=== PATIENT | male | born 1945 | race Caucasian/White ===

== ENCOUNTER 2017-01-04 15:45 | Inpatient (IN) | payer MEDICARE ==
[2017-01-04] VITALS (11 sets, daily range): BP systolic 99–111; BP diastolic 57–60; PULSE 68–126; RESP 22–25; TEMP 97.8–98.1; O2SAT 92–94
[~2017-01-04] VITALS: Ht 175.3 cm; Wt 114.5 kg
[2017-01-04] MEDS ORDERED: CARV25TA PO (17:10)
[2017-01-04] MEDS ORDERED: ASPI1TAB69 PO (17:10)
[2017-01-04] MEDS ORDERED: HYDR25TA35 PO (17:10)
[2017-01-04] MEDS ORDERED: HYDR25TA5 PO (17:10)
[2017-01-04] MEDS ORDERED: DILTIAZEM HCL 25 MG/5 ML VIAL IV ONE (17:15)
[2017-01-04] MEDS: hydrALAZINE HCL 25 MG TAB PO SCH (20:47)
[2017-01-04] MEDS: DILTIAZEM 125 MG/NS 100 ML IV SCH ×2 (22:32)
[2017-01-05] VITALS (22 sets, daily range): BP systolic 109–124; BP diastolic 65–83; PULSE 80–148; RESP 14–25; TEMP 97.4–97.9; O2SAT 90–100
[2017-01-05] MEDS: DILTIAZEM 125 MG/NS 100 ML IV SCH ×6 (06:30→21:22)
[2017-01-05] MEDS: HYDROCHLOROTHIAZIDE 25 MG TAB PO SCH (09:00)
[2017-01-05] MEDS: hydrALAZINE HCL 25 MG TAB PO SCH ×2 (09:00→21:00)
[2017-01-05] MEDS: ASPIRIN 81 MG CHEW TAB PO SCH (09:00)
[2017-01-05] MEDS ORDERED: CARVEDILOL 12.5 MG TAB PO SCH (09:00)
[2017-01-05] MEDS ORDERED: SODIUM CHLORID 0.9% 500 ML INJ 500 ML IV SCH ×2 (09:15→10:00)
[2017-01-05 09:56] LABS: HEMATOCRIT 40.6 % (39.0-51.0); HEMO FLAGS DIFF FINAL; LYMPH % 3.3 % (9.0-44.0); LYMPHOCYTE # 0.5 TH/MM3 (1.0-4.8); MEAN CELL VOLUME 90.7 FL (80.0-100.0); MONO % 5.4 % (0.0-8.0); NEUT % 91.3 % (16.0-70.0); PLATELET COUNT 237 TH/MM3 (150-450); RED BLOOD COUNT 4.48 MIL/MM3 (4.50-5.90); RED CELL DISTRIBUTION WIDTH 15.3 % (11.6-17.2); WHITE BLOOD COUNT 15.3 TH/MM3 (4.0-11.0)
[2017-01-05 10:10] LABS: APTT (PATIENT) 25.9 SEC (24.3-30.1); INTERNATIONAL NORMALIZED RATIO 1.2 RATIO; PROTHROMBIN TIME - PATIENT 12.8 SEC (9.8-11.6)
[2017-01-05 10:16] LABS: BLOOD UREA NITROGEN 103 MG/DL (7-18); CHLORIDE 92 MEQ/L (98-107); GLOMERULAR FILTRATION RATE 18 ML/MIN (>89); POTASSIUM 3.1 MEQ/L (3.5-5.1); SODIUM (NA) 143 MEQ/L (136-145)
[2017-01-05 10:17] LABS: ANION GAP 6 MEQ/L (5-15); BICARBONATE GREATER THAN 45.0 MEQ/L (21.0-32.0)
--- NOTE | 2017-01-05 10:19 | MB ---
cc: AMENA NOBLE MD, HANSCY M.D. DATE OF CONSULTATION: 01/04/2017 REASON FOR CONSULTATION Atrial fibrillation, unable to control with medication, congestive heart failure. HISTORY OF PRESENT ILLNESS Mr. Palmer is a 71-year-old gentleman with obesity and high blood pressure who was admitted to [facility] in [place] due to shortness of breath and atrial fibrillation with fast ventricular response. During the hospitalization left heart catheterization was performed showing no significant occlusion, ejection fraction around 15%. Subsequently, the gentleman was cardioverted on at least two occasion, still back in atrial fibrillation with fast ventricular response. Heart rate cannot be controlled with medication. After multiple conversations with Dr. Noble the patient was transferred for evaluation of ablation. The chart was reviewed. The patient was evaluated. ALLERGIES None reported. SOCIAL HISTORY The patient currently denies smoking and drinking. FAMILY HISTORY Noncontributory to his current medical condition. PHYSICAL EXAMINATION VITAL SIGNS: Blood pressure 99/57, pulse around 126-140, respiratory rate 18. LUNGS: Ventilated. CARDIOVASCULAR: S1, S2 tachycardic, irregular. ABDOMEN: Obese. No mass. EXTREMITIES: No edema. ELECTROCARDIOGRAM Electrocardiogram showed atrial fibrillation. TELEMETRY Telemetry showed atrial fibrillation with fast ventricular response. ASSESSMENT AND RECOMMENDATION Mr. Palmer has atrial fibrillation, heart rate unable to control. The patient is very symptomatic. Electrophysiology study and ablation was discussed with him. The risks, the nature and the benefit of the procedure were clearly stated to him. The risks include pneumothorax, cardiac perforation, stroke and even . He understood and agreed to proceed. Also, the gentleman understands that he is very high risk. At this point I am going to control the atrial fibrillation. On discharge home he will need a defibrillatory vest for sudden prevention until echo is repeated in the next 45-60 days. Procedure will be performed tomorrow morning. Narcisa Jimenez MD HS/BT /8:56 AM /10:09 AM
[2017-01-05] MEDS ORDERED: HEPARIN-D5W INJ 250 ML ONE (12:33)
[2017-01-05] MEDS ORDERED: HEPARIN SODIUM - IV 10,000 UNITS/10 ML VIAL ONE (12:34)
[2017-01-05] MEDS ORDERED: KETAMINE HCL 500 MG/10 ML VIAL ONE (12:34)
[2017-01-05] MEDS ORDERED: ISOPROTERENOL HCL 1 MG/5 ML AMP ONE (12:34)
[2017-01-05] MEDS ORDERED: fentaNYL CITRATE 250 MCG/5 ML AMP ONE (12:34)
[2017-01-05] MEDS ORDERED: MIDAZOLAM HCL 5 MG/5 ML VIAL ONE (13:11)
[2017-01-05] MEDS ORDERED: LEVOFLOXACIN 500 MG PREMIX INJ 100 ML IV ONE (13:12)
[2017-01-05] MEDS ORDERED: AMIODARONE INJ 300 MG in DEXTROSE 5% IN WATER 100ML INJ 97 ML IV ONE ×2 (13:45)
[2017-01-05] MEDS ORDERED: AMIODARONE INJ 900 MG in D5W 500 ML (EXCEL BAG) 482 ML IV SCH (13:45)
--- NOTE | 2017-01-05 13:47 | HHI.PR ---
Subjective Remarks Tired, concern Objective Vital Signs Date Time Temp Pulse Resp B/P Pulse Ox O2 Delivery O2 Flow Rate FiO2 01/05/17 12:01 112 01/05/17 11:15 91 Simple Mask 9.00 01/05/17 11:15 97.6 80 22 111/81 95 01/05/17 11:00 148 01/05/17 10:00 112 01/05/17 09:01 132 01/05/17 08:30 95 Simple Mask 9.00 01/05/17 08:30 97.9 95 20 109/75 95 01/05/17 08:00 124 01/05/17 08:00 92 Simple Mask 8.00 01/05/17 07:01 126 01/05/17 06:00 116 01/05/17 05:00 111 01/05/17 04:00 97.5 90 25 117/83 90 01/05/17 04:00 90 Simple Mask 9.00 01/05/17 04:00 112 01/05/17 03:00 108 01/05/17 02:00 106 01/05/17 01:00 120 01/05/17 00:00 102 01/04/17 23:00 92 Simple Mask 9.00 01/04/17 23:00 97.8 112 25 103/58 92 01/04/17 23:00 112 01/04/17 22:00 96 01/04/17 21:47 93 Simple Mask 8.00 01/04/17 21:00 114 01/04/17 20:00 108 01/04/17 19:00 92 Simple Mask 9.00 01/04/17 19:00 98.1 93 25 99/57 92 01/04/17 19:00 111 01/04/17 18:01 122 01/04/17 17:00 126 01/04/17 16:15 93 Simple Mask 10.00 01/04/17 16:00 101 01/04/17 15:27 97.8 68 22 111/60 94 I/O 01/04/17 01/04/17 01/04/17 01/05/17 01/05/17 01/05/17 07:00 15:00 23:00 07:00 15:00 23:00 Intake Total 280 ml 420 ml Balance 280 ml 420 ml Intake Oral 240 ml 240 ml IV Total 40 ml 180 ml # Voids 1 4 # Bowel Movements 0 0 Result Diagram: 01/05/1710 01/05/1710 Imaging Alert, oriented, in bed Lungs: ventilated Heart: S1, S2 irregular, tachycardia Abdomen: obese, no mass Ext: no edema Laboratory Tests Test 01/05/17 09:10 White Blood Count 15.3 TH/MM3 (4.0-11.0) Red Blood Count 4.48 MIL/MM3 (4.50-5.90) Neutrophils (%) (Auto) 91.3 % (16.0-70.0) Lymphocytes (%) (Auto) 3.3 % (9.0-44.0) Neutrophils # (Auto) 14.0 TH/MM3 (1.8-7.7) Lymphocytes # (Auto) 0.5 TH/MM3 (1.0-4.8) Prothrombin Time 12.8 SEC (9.8-11.6) Potassium Level 3.1 MEQ/L (3.5-5.1) Chloride Level 92 MEQ/L (98-107) Carbon Dioxide Level GREATER THAN 45.0 MEQ/L (21.0-32.0) Blood Urea Nitrogen 103 MG/DL (7-18) Creatinine 3.32 MG/DL (0.60-1.30) Estimat Glomerular Filtration 18 ML/MIN (>89) Rate Random Glucose 121 MG/DL (74-106) Current Medications Medications (Trade) Dose Ordered Sig/Claire Route Start Time Stop Time Status Last Admin (Aspirin Chew) 81 mg DAILY PO 01/05/17 09:00 (Hydrodiuril) 25 mg DAILY PO 01/05/17 09:00 (Apresoline) 25 mg BID PO 01/04/17 21:00 01/04/17 20:47 Carvedilol 25 mg 25 mg DAILY PO 01/05/17 09:00 01/05/17 08:28 Diltiazem HCl 125 mg/Sodium Chloride 125 ml @ 0 mls/hr TITRATE IV 01/04/17 21:15 01/05/17 06:30 Sodium Chloride 500 ml @ 30 mls/hr CONTINUOUS IV 01/05/17 10:00 (NS 500 ml Inj) 500 ml @ 30 mls/hr CONTINUOUS IV 01/05/17 09:15 Assessment and Plan Problem List: (1) SOB (shortness of breath) Status: Acute Plan: Due to heart failure and afib (2) CHF (congestive heart failure) Status: Acute Plan: CHF III. Saturation at room air 90. HR difficult to control. EF 15% HR will be controlled. Entresto added Coreg decreases to 6.25mg bid Condition critical. Prognosis guarded (3) Atrial fibrillation with rapid ventricular response Status: Acute Plan: In atrial fibrillation with FVR. HR difficult to control. Case extensively discussed with patient and . Fail previous cardioversion. They decided to proceed with ablation. They understand patient is a high risk Physician Attestation ositodendum; Patient was scheduled for ablation. VLADIMIR shows clot in NETTIE. Procedure cancel Amio IV plus cardizem IV initiated beta peterson will be also given Narcisa Jimenez MD January 05, 2017 13:47
[2017-01-05] MEDS ORDERED: PROPOFOL 1000 MG/100 ML INJ 100 ML ONE ×2 (13:50→16:32)
[2017-01-05] MEDS ORDERED: PHENYLEPHRINE HCL 10 MG/ML VIAL ONE ×2 (13:55→16:30)
[2017-01-05] MEDS ORDERED: HEPARIN SODIUM - IV 10,000 UNITS/10 ML VIAL IV ONE (14:00)
--- NOTE | 2017-01-05 14:01 | CATHPROC ---
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 Physician and Clinical Staff Initial Narcisa Marion Air Filler Cher Machado,RT(R) TECH2 Other Anesthesia, CLINICAL APPEALS SPECIALIST Recorder Rosalee Mcdaniel,RN Scrub Mildred Rey,CERTIFIED APPLIANCE SERVICE TECHNICIAN TECH2 Equipment Time Mobile Tester Description Size Mfg Part Number Used/Scraped 13:56 [employer] P[employer], CCL CUSTOM * [id number] Used 13:56 [employer] PACER LR, LIMB * [id number] Used 13:56 [employer] BLANKET,WARM AIR CCL * [id number] Used History: Allergies Allergy Reaction No Known Allergies History: Arrhythmias Selection Items Atrial fibrillation Labs Hgb (g/dl) Hct (%) RBC (MIL/MM3) WBC (l/cumm) Platelets (thousands) 12.00-18.00 37.00-55.00 4.80-6.20 4.80-10.80 140.00-450.00 13.4 40.6 4.4 15.3 237 Glucose (mg/dl) BUN (mg/dl) Creatinine (mg/dl) BUN:Creatinine (1:x) 60.00-110.00 8.00-20.00 0.10-9.00 10.00-20.00 121 100 3.3 30.3 Na (meq/l) K (meq/l) Cl (meq/l) CO2 (mmol/L) Ca (mg/dl) 138.00-146.00 3.80-5.10 101.00-111.00 23.00-30.00 9.00-10.50 143 3.1 92 45 8.6 INR (PTT:PT) 0.50-2.00 1.2 CPK-MB (ng/ML) 0.00-7.00 Not Drawn Final Case Assessment Cardiovascular HR Rhythm NIBP Chest Pain 121 AFIB 102/68 0 Edema Present Skin color Skin Mild Normal Warm Neurological State Comment: INTUBATED AND SEDATED Respiration - General Respiration Rate SpO2 (%) (B/min) 20 92 Respiration - Ventilator Type Ventilator Type 100% Chronological Log Time Study Chronological Log 12:45:00 Patient arrived via Bed. 12:46:00 Patient Name, D.O.B, / Armband Verified By R.N. 12:47:00 Consent signed by the physician and the patient and verified by the Vacuum Truck Driver staff. 12:48:00 Anesthesia at bedside. Assumes care of patient. 12:48:50 Patient has been NPO for More than 6Hrs. 12:49:12 Skin Breakdown-none per patient 12:50:00 Patient Warmer Placed on the Table. 12:50:40 Leni Prominences Protected 12:50:48 IV Warmer Connected To Patient. 12:51:00 Disposable Defibrillator Pads Placed On Patient. 13:11:00 A # 20 IV was noted in the Antecubital (left). Grade = 0 13:11:09 A # 20 IV was noted in the Antecubital (right). Grade = 0 13:11:20 History and physical on the chart or being dictated. 13:11:22 Table restraints applied according to hospital policy 13:11:31 Bilateral groins prepped with 2% chlorhexidine, and with a 3 min. waiting time. Time Out. Correct patient, procedure, procedure equipment, site and side verified with physici an present. Time 13:23:53 concurred by MD, individual staff and CLINICAL APPEALS SPECIALIST. Time Out #2 - Consents verified, patient in correct position, all results are labled and displ ayed, safety precautions 13:23:57 taken, antibiotics administered. Time out concurred by MD, individual staff and CLINICAL APPEALS SPECIALIST in proced ure 13:24:36 Case Start 13:24:41 Reference ECG taken 13:25:04 VLADIMIR IN PROGRESS 13:26:19 PATIENT HAS BLOOD CLOTS, PROCEDURE CANCELED 13:28:38 Case End 13:29:13 PACU called. Spoke to CHER 13:50:26 Patient moved to [facility] Assessment: Final Case, LV=186 BPM, Rhythm=AFIB, CDZA=831/68 mmhg, Chest Pain=0, Edema=Mild, Color=Normal, Skin = Warm 13:56:29 Neurological: Comment=INTUBATED AND SEDATED Respiration: Resp=20 B/min, SpO2=92 %, Ventilator upbt=371% End Study - Contrast Media Used In Study Contrast Total Opened (mL) Total Used (mL) Total Wasted (mL) Unspecified 0 0 0 End Study - Maximum Contrast Load Max Contrast Load (mL) 169.7 End Study - Radiation Exposure Fluoro Time (minutes) 0.0 End Study - Patient Disposition Complications Transferred To Interventional Outcome No Critical Care Bed No attempt made
[2017-01-05] MEDS ORDERED: SUGAMMADEX SODIUM 200 MG/2 ML VIAL IV PUSH ONE ×2 (14:13)
[2017-01-05] MEDS ORDERED: DO NOT ADM ANY ANTICOAGULANT DRUGS PRN (14:20)
[2017-01-05 14:39] LABS: BLOOD GAS BASE EXCESS 13.5 mmol/L (-2-2); BLOOD GAS CARBOXYHEMOGLOBIN 1.6 % (0-4); BLOOD GAS HCO3 38 mmol/L (22-26); BLOOD GAS METHEMOGLOBIN 1.1 % (0-2); BLOOD GAS O2 HGB SATURATION 94 % (90-100); BLOOD GAS OXYGEN CONTENT 18.3 Vol % (12.0-20.0); BLOOD GAS PCO2 51 mmHg (38-42); BLOOD GAS PO2 87 mmHg (61-120); BLOOD GAS TOTAL HGB 13.7 G/DL (12.0-16.0); CRITICAL VALUE YES; TEMP CORR TO 98.6
[2017-01-05 14:40] LABS: OXYGEN DEVICE VENT
[2017-01-05 14:41] LABS: DRAW SITE ALINE; FIO2 100 %; STAT NO; ULNAR PULSE PRESENT
[2017-01-05 14:48] LABS: HEMATOCRIT 38.5 % (39.0-51.0); MEAN CELL VOLUME 91.2 FL (80.0-100.0); MEAN CORPUSCULAR HEMOGLOBIN 29.6 PG (27.0-34.0); MEAN CORPUSCULAR HGB CONC 32.4 % (32.0-36.0); PLATELET COUNT 278 TH/MM3 (150-450); RED BLOOD COUNT 4.22 MIL/MM3 (4.50-5.90); REVIEW FLAG FINAL; WHITE BLOOD COUNT 16.2 TH/MM3 (4.0-11.0)
[2017-01-05 14:49] LABS: BICARBONATE 41.1 MEQ/L (21.0-32.0); POTASSIUM 3.2 MEQ/L (3.5-5.1)
[2017-01-05 14:58] LABS: APTT (PATIENT) 25.7 SEC (24.3-30.1)
--- NOTE | 2017-01-05 15:39 | RADRPT ---
EXAM DATE/TIME: 01/05/2017 14:20 [place] COMPARISON: No previous studies available for comparison. INDICATIONS : ET tube placement MEDICAL HISTORY : Unknown SURGICAL HISTORY : Unknown ENCOUNTER: Initial ACUITY: 1 day PAIN SCORE: Non-responsive. LOCATION: Bilateral chest FINDINGS: Endotracheal tube is present with tip 5-6 cm above the saturnino. Bibasilar consolidative changes and ef fusions are present. Moderate cardiac enlargement. CONCLUSION: Cardiomegaly with basilar pleuroparenchymal opacities. ET tube in satisfactory position. Daniel Cantu MD on January 05, 2017 at 15:36 Board Certified Radiologist. This report was verified electronically.
[2017-01-05] MEDS ORDERED: PHENYLEPHRINE 40 MG/D5W 496 ML ADMIX IV SCH ×2 (15:45)
[2017-01-05] MEDS: AMIODARONE INJ 450 MG in D5W (EXCEL BAG) 241 ML IV SCH ×2 (15:55→21:22)
[2017-01-05] MEDS: HEPARIN-D5W INJ 250 ML IV SCH (15:57)
[2017-01-05] MEDS ORDERED: TERBUTALINE INJ 1 MG/ML AMP SQ PRN (16:00)
--- NOTE | 2017-01-05 16:22 | PD.CONS ---
[facility] Service Critical Care Medicine Consult Requested By Dr. Livingston Reason for Consult Ventilator Management Primary Care Physician Unknown History of Present Illness This is a 71-year-old gentleman that presented to [facility] secondary to dyspnea and atrial fibrillation with RVR. The patient has a medical history significant for obesity and hypertension. During his hospitalization at [facility], the patient underwent an echocardiogram which showed severe systolic dysfunction with an ejection fraction of 1015 % the patient then underwent a cardiac catheterization showing significance with left circumflex 90%. The patient underwent multiple attempts of unsuccessful synchronized cardioversion. The patient also underwent medical management with beta blockers, and calcium channel blockers that were also unsuccessful. The patient was transferred to [facility] for cardiac ablation with Dr. Jimenez. The patient was scheduled for cardiac ablation, the procedure was canceled. The patient required emergent intubation and required ventilator management a VLADIMIR was performed showing a clot in the left atrial appendage. The patient was placed on IV Cardizem, and an amiodarone infusion. Critical Care medicine was consulted by anesthesiology, Dr. Livingston for management. Review of Systems ROS Limitations: Clinical Condition Past Family Social History Allergies: Coded Allergies: No Known Allergies (Unverified , 01/05/17) Pt stated he had No Known Allergies Past Medical History Obesity, HTN Past Surgical History Unknown Reported Medications see MAR Active Ordered Medications see MAR Social History He recently smoked a pack a day 20 years, quit 40 years ago Physical Exam Vital Signs Vital Signs Date Time Temp Pulse Resp B/P Pulse Ox O2 Delivery O2 Flow Rate FiO2 01/05/17 13:50 98 100 01/05/17 12:01 112 01/05/17 11:15 91 Simple Mask 9.00 01/05/17 11:15 97.6 80 22 111/81 95 01/05/17 11:00 148 01/05/17 10:00 112 01/05/17 09:01 132 01/05/17 08:30 95 Simple Mask 9.00 01/05/17 08:30 97.9 95 20 109/75 95 01/05/17 08:00 124 01/05/17 08:00 92 Simple Mask 8.00 01/05/17 07:01 126 01/05/17 06:00 116 01/05/17 05:00 111 01/05/17 04:00 97.5 90 25 117/83 90 01/05/17 04:00 90 Simple Mask 9.00 01/05/17 04:00 112 01/05/17 03:00 108 01/05/17 02:00 106 01/05/17 01:00 120 01/05/17 00:00 102 01/04/17 23:00 92 Simple Mask 9.00 01/04/17 23:00 97.8 112 25 103/58 92 01/04/17 23:00 112 01/04/17 22:00 96 01/04/17 21:47 93 Simple Mask 8.00 01/04/17 21:00 114 01/04/17 20:00 108 01/04/17 19:00 92 Simple Mask 9.00 01/04/17 19:00 98.1 93 25 99/57 92 01/04/17 19:00 111 01/04/17 18:01 122 01/04/17 17:00 126 01/04/17 16:15 93 Simple Mask 10.00 01/04/17 16:00 101 Physical Exam GENERAL: Critically ill-appearing appropriately stated age, obese male sedated and intubated SKIN: Warm and dry. HEAD: Atraumatic. Normocephalic. EYES: Pupils equal and round, 3mm. No scleral icterus. No injection or drainage. ENT: No nasal bleeding or discharge. Mucous membranes pink and moist. Orotracheally intubated NECK: Trachea midline. Unable to assess JVD secondary to body habitus. CARDIOVASCULAR: Rapid irregularly irregular rhythm. RESPIRATORY: Mechanical ventilation.. Clear to auscultation. Breath sounds equal bilaterally. GASTROINTESTINAL: Abdomen soft, obese non-tender, nondistended. MUSCULOSKELETAL: Extremities without clubbing, cyanosis, or edema. No obvious deformities. NEUROLOGICAL: RASS -2. Intubated and sedated. Laboratory Laboratory Tests Test 01/05/17 01/05/17 01/05/17 09:10 14:10 14:20 White Blood Count 15.3 16.2 Red Blood Count 4.48 4.22 Hemoglobin 13.4 12.5 Hematocrit 40.6 38.5 Mean Corpuscular Volume 90.7 91.2 Mean Corpuscular Hemoglobin 30.0 29.6 Mean Corpuscular Hemoglobin 33.0 32.4 Concent Red Cell Distribution Width 15.3 15.0 Platelet Count 237 278 Mean Platelet Volume 9.3 9.2 Neutrophils (%) (Auto) 91.3 Lymphocytes (%) (Auto) 3.3 Monocytes (%) (Auto) 5.4 Eosinophils (%) (Auto) 0.0 Basophils (%) (Auto) 0.0 Neutrophils # (Auto) 14.0 Lymphocytes # (Auto) 0.5 Monocytes # (Auto) 0.8 Eosinophils # (Auto) 0.0 Basophils # (Auto) 0.0 CBC Comment DIFF FINAL Differential Comment Prothrombin Time 12.8 Prothromb Time International 1.2 Ratio Activated Partial 25.9 25.7 Thromboplast Time Sodium Level 143 144 Potassium Level 3.1 3.2 Chloride Level 92 94 Carbon Dioxide Level GREATER THAN 41.1 45.0 Anion Gap 6 9 Blood Urea Nitrogen 103 103 Creatinine 3.32 3.08 Estimat Glomerular Filtration 18 20 Rate Random Glucose 121 134 Calcium Level 8.6 8.3 Blood Type O POSITIVE Antibody Screen NEGATIVE Blood Bank Comment Blood Gas Puncture Site YELITZA Blood Gas Patient Temperature 98.6 Blood Gas HCO3 38 Blood Gas Base Excess 13.5 Blood Gas Oxygen Saturation 94 Arterial Blood pH 7.49 Arterial Blood Partial 51 Pressure CO2 Arterial Blood Partial 87 Pressure O2 Arterial Blood Oxygen Content 18.3 Arterial Blood 1.6 Carboxyhemoglobin Arterial Blood Methemoglobin 1.1 Blood Gas Hemoglobin 13.7 Oxygen Delivery Device VENT Blood Gas Ventilator Setting PEEP 5, RATE 14, Blood Gas Inspired Oxygen 100 Lactic Acid Level 1.1 Result Diagram: 01/05/17 1420 01/05/17 142 Assessment and Plan Assessment and Plan A. fib with RVR Left atrial appendage thrombus Cardiomyopathy CHF Respiratory insufficiency Hypertension Renal insufficiency Obesity Neurologic: Propofol for sedation to maintain ventilator synchrony Neurochecks per ICU protocol Respiratory: Maintain O2 sat greater than 92%, wean FiO2 Follow-up chest x-ray Consider diuresis Bronchodilators schedule every 4 hours, every 2 hours when necessary CPAP trials as tolerated Cardiovascular: Initiate heparin infusion Amiodarone infusion 01/05 VLADIMIR-left atrial thrombus 12/26 [facility] severe systolic dysfunction EF 1015%, mitral valve mild to moderate regurg, LAE, tricuspid Valve-mild to moderate regurg, small pericardial effusion, cardiac cath left circumflex 90% occlusion Maintain MAP greater than 65mmHg, currently on phenylephrine infusion Renal: Nephrology following-Dr. Hahn -- Strict I/Os FEN/GI: Maintain nothing by mouth status for now Monitor BMP Heme/ID: Monitor CBC Endocrine: Glucose monitoring per ICU protocol -- SSI Prophylaxis: GI Prophylaxis Pepcid twice a day DVT Prophylaxis -- SCDs Heparin infusion per cardiology Lines: Peripheral IV's. Central line if indicated Dispo: This patient remains critically ill with one or more organ systems which are or may become a threat to life. I have spent in excess of 45 minutes discontinuously in the care and management of this patient. This time is exclusive of procedures, and includes, but is not limited to, evaluation of the patient, review of the medical record, discussions with family, consultants, nursing staff, or respiratory therapy, and documentation in the medical record. Code Status Full Discussed Condition With Dr. Livingston, and LEATHER SOFTENER at bedside Marianne Foy MD January 05, 2017 16:22
[2017-01-05] MEDS ORDERED: PROPOFOL 500 MG/50 ML INJ 50 ML ONE (16:29)
[2017-01-05] MEDS ORDERED: GLUCAGON 1 MG/ML VIAL OTHER PRN (16:30)
[2017-01-05] MEDS ORDERED: DEXTROSE 50% IN WATER 50 ML VIAL(D50) IV PUSH PRN (16:30)
[2017-01-05] MEDS: FAMOTIDINE 20 MG/2 ML VIAL IV PUSH SCH (17:00)
[2017-01-05] MEDS ORDERED: EPINEPHrine HCL (1:10,000) 1 MG/10 ML SYRINGE ONE (17:46)
[2017-01-05] MEDS ORDERED: ATROPINE SULFATE 1 MG/10 ML SYRINGE ONE (17:46)
--- NOTE | 2017-01-05 17:56 | PD.CONS ---
HPI Service Nephrology Consult Requested By Reason for Consult Chronic kidney disease Primary Care Physician Unknown History of Present Illness Patient is a 71-year-old the white male the who is transferred from [facility] to [facility] due to atrial fibrillation with fast ventricular response, he was in the heart catheterization lab and became unstable has to intubated the patient has chronic kidney disease, Cardiomyopathy ejection fraction of only 15% and has severe dilated cardiomyopathy with the clot in left atrium he is on heparin drip and currently on ventilator his creatinine was 3.08 has chronic kidney disease, patient has previous cardioversions 2 and he was here for EP study and possible ablation but this was aborted. Review of Systems ROS Limitations: Clinical Condition Past Family Social History Allergies: Coded Allergies: No Known Allergies (Unverified , 01/05/17) Pt stated he had No Known Allergies Past Medical History Chronic kidney disease Cardiomyopathy EF is 10-15% Atrial fibrillation Hypertension Past Surgical History Unknown Reported Medications Reported Meds & Active Scripts Active Reported Carvedilol 25 Mg Tab 25 Mg PO DAILY Hydrochlorothiazide 25 Mg Tab 25 Mg PO DAILY Hydralazine (Hydralazine HCl) 25 Mg Tab 25 Mg PO BID Take with a meal Aspirin 81 Mg Tabdr 81 Mg PO DAILY Active Ordered Medications Current Medications Medications (Trade) Dose Ordered Sig/Claire Route Start Time Stop Time Status Last Admin (Aspirin Chew) 81 mg DAILY PO 01/05/17 09:00 (Hydrodiuril) 25 mg DAILY PO 01/05/17 09:00 Hydralazine HCl 25 mg 25 mg BID PO 01/04/17 21:00 01/04/17 20:47 Diltiazem HCl 125 mg/Sodium Chloride 125 ml @ 0 mls/hr TITRATE IV 01/04/17 21:15 01/05/17 15:54 Sodium Chloride 500 ml @ 30 mls/hr CONTINUOUS IV 01/05/17 10:00 (NS 500 ml Inj) 500 ml @ 30 mls/hr CONTINUOUS IV 01/05/17 09:15 (Coreg) 6.25 mg BID PO 01/05/17 21:00 Sacubitril/ Valsartan 1 tab 1 tab BID PO 01/05/17 21:00 (Cordarone Inj/ D5W ([place]) Inj) 250 ml @ 0 mls/hr CONTINUOUS IV 01/05/17 13:45 01/05/17 15:55 (Coumadin) 5 mg DAILY@1600 PO 01/05/17 20:00 (Heparin Inj) 5,000 units UNSCH PRN IV 01/05/17 19:45 Heparin Sodium (Porcine) 2500 units 2,500 units UNSCH PRN IV 01/05/17 19:45 (Heparin-D5W Inj) 250 ml @ 0 mls/hr TITRATE IV 01/05/17 14:00 01/05/17 15:57 Miscellaneous Information ALL NURSING DEPARTME... UNSCH PRN .XX 01/05/17 14:20 01/06/17 14:19 (Neosynephrine Inj/D5W 500 ml Inj) 500 ml @ 0 mls/hr TITRATE IV 01/05/17 15:45 (Brethine Inj) 1 mg UNSCH PRN SQ 01/05/17 16:00 (D50w (Vial) Inj) 25 ml UNSCH PRN IV PUSH 01/05/17 16:30 (Glucagon Inj) 1 mg UNSCH PRN OTHER 01/05/17 16:30 (Pepcid Inj) 10 mg Q12H IV PUSH 01/05/17 17:00 Family History Unknown Social History There is history of smoking in the past Physical Exam Vital Signs Vital Signs Date Time Temp Pulse Resp B/P Pulse Ox O2 Delivery O2 Flow Rate FiO2 01/05/17 16:15 125 14 114/68 99 Mechanical Ventilator 100 01/05/17 16:00 97.8 128 14 117/69 98 Mechanical Ventilator 100 01/05/17 15:45 122 14 122/70 98 Mechanical Ventilator 100 01/05/17 15:30 129 14 112/68 98 Mechanical Ventilator 100 01/05/17 15:15 128 14 119/74 98 Mechanical Ventilator 100 01/05/17 15:00 126 14 122/80 98 Mechanical Ventilator 100 01/05/17 14:45 132 14 126/86 97 Mechanical Ventilator 100 01/05/17 14:30 134 14 127/89 97 Mechanical Ventilator 100 01/05/17 14:15 141 13 111/60 97 Mechanical Ventilator 100 01/05/17 14:00 130 13 163/92 98 Mechanical Ventilator 100 01/05/17 13:54 97.7 136 24 93/71 93 Ambu Bag 15 01/05/17 13:50 98 100 01/05/17 12:01 112 01/05/17 11:15 91 Simple Mask 9.00 01/05/17 11:15 97.6 80 22 111/81 95 01/05/17 11:00 148 01/05/17 10:00 112 01/05/17 09:01 132 01/05/17 08:30 95 Simple Mask 9.00 01/05/17 08:30 97.9 95 20 109/75 95 01/05/17 08:00 124 01/05/17 08:00 92 Simple Mask 8.00 01/05/17 07:01 126 01/05/17 06:00 116 01/05/17 05:00 111 01/05/17 04:00 97.5 90 25 117/83 90 01/05/17 04:00 90 Simple Mask 9.00 01/05/17 04:00 112 01/05/17 03:00 108 01/05/17 02:00 106 01/05/17 01:00 120 01/05/17 00:00 102 01/04/17 23:00 92 Simple Mask 9.00 01/04/17 23:00 97.8 112 25 103/58 92 01/04/17 23:00 112 01/04/17 22:00 96 01/04/17 21:47 93 Simple Mask 8.00 01/04/17 21:00 114 01/04/17 20:00 108 01/04/17 19:00 92 Simple Mask 9.00 01/04/17 19:00 98.1 93 25 99/57 92 01/04/17 19:00 111 01/04/17 18:01 122 Physical Exam GENERAL: Well-nourished, well-developed intubated patient. SKIN: Warm and dry. HEAD: Normocephalic. EYES: No scleral icterus. No injection or drainage. NECK: Supple, trachea midline. No JVD or lymphadenopathy. CARDIOVASCULAR: Irregularly irregular with rapid ventricular response RESPIRATORY: Breath sounds equal bilaterally. No accessory muscle use. GASTROINTESTINAL: Abdomen soft, non-tender, nondistended. EXTREMITIES: No cyanosis, or edema. NEUROLOGICAL: Sedation Laboratory Laboratory Tests Test 01/05/17 01/05/17 01/05/17 09:10 14:10 14:20 White Blood Count 15.3 16.2 Red Blood Count 4.48 4.22 Hemoglobin 13.4 12.5 Hematocrit 40.6 38.5 Mean Corpuscular Volume 90.7 91.2 Mean Corpuscular Hemoglobin 30.0 29.6 Mean Corpuscular Hemoglobin 33.0 32.4 Concent Red Cell Distribution Width 15.3 15.0 Platelet Count 237 278 Mean Platelet Volume 9.3 9.2 Neutrophils (%) (Auto) 91.3 Lymphocytes (%) (Auto) 3.3 Monocytes (%) (Auto) 5.4 Eosinophils (%) (Auto) 0.0 Basophils (%) (Auto) 0.0 Neutrophils # (Auto) 14.0 Lymphocytes # (Auto) 0.5 Monocytes # (Auto) 0.8 Eosinophils # (Auto) 0.0 Basophils # (Auto) 0.0 CBC Comment DIFF FINAL Differential Comment Prothrombin Time 12.8 Prothromb Time International 1.2 Ratio Activated Partial 25.9 25.7 Thromboplast Time Sodium Level 143 144 Potassium Level 3.1 3.2 Chloride Level 92 94 Carbon Dioxide Level GREATER THAN 41.1 45.0 Anion Gap 6 9 Blood Urea Nitrogen 103 103 Creatinine 3.32 3.08 Estimat Glomerular Filtration 18 20 Rate Random Glucose 121 134 Calcium Level 8.6 8.3 B-Type Natriuretic Peptide 596 Blood Type O POSITIVE Antibody Screen NEGATIVE Blood Bank Comment Blood Gas Puncture Site YELITZA Blood Gas Patient Temperature 98.6 Blood Gas HCO3 38 Blood Gas Base Excess 13.5 Blood Gas Oxygen Saturation 94 Arterial Blood pH 7.49 Arterial Blood Partial 51 Pressure CO2 Arterial Blood Partial 87 Pressure O2 Arterial Blood Oxygen Content 18.3 Arterial Blood 1.6 Carboxyhemoglobin Arterial Blood Methemoglobin 1.1 Blood Gas Hemoglobin 13.7 Oxygen Delivery Device VENT Blood Gas Ventilator Setting PEEP 5, RATE 14, Blood Gas Inspired Oxygen 100 Lactic Acid Level 1.1 Result Diagram: 01/05/17 1420 01/05/17 1420 Imaging Last Impressions Chest X-Ray 01/05/17 0000 Signed Impressions: Service Date/Time: Thursday, January 05, 2017 14:20 - CONCLUSION: Cardiomegaly with basilar pleuroparenchymal opacities. ET tube in satisfactory position. Daniel Cantu MD Assessment and Plan Problem List: (1) Acute renal failure Plan: Patient is being admitted and he will require Bumex drip I discussed the care with Dr. Foy He has poor ejection fraction and is intubated Severe cardiomyopathy prognosis is guarded (2) CKD (chronic kidney disease) stage 4, GFR 15-29 ml/min Plan: Has high creatinine check kidney ultrasound (3) CHF (congestive heart failure) Plan: Severe cardiomyopathy EF 10-15% (4) Atrial fibrillation with rapid ventricular response Plan: Has a blood clot in LA appendage (5) Hypokalemia Plan: potassium is ordered to be replaced Problem Qualifiers (1) CHF (congestive heart failure): Christa Hahn MD January 05, 2017 17:56
[2017-01-05] MEDS ORDERED: HEPARIN SODIUM - IV 10,000 UNITS/10 ML VIAL IV PRN (19:45)
[2017-01-05] MEDS: WARFARIN SOD 5 MG TAB PO SCH (20:00)
--- NOTE | 2017-01-05 20:24 | RADRPT ---
EXAM DATE/TIME: 01/05/2017 18:08 [facility] COMPARISON: CHEST SINGLE AP, January 05, 2017, 14:20. INDICATIONS : Congestive heart failure. RADIATION DOSE: 13.55 CTDIvol (mGy) MEDICAL HISTORY : Cardiovascular disease. Hypertension. Renal disease SURGICAL HISTORY : Coronary artery stent. ENCOUNTER: Initial ACUITY: 1 day PAIN SCALE: Non-responsive LOCATION: chest TECHNIQUE: Volumetric scanning of the chest was performed. Using automated exposure control and adjustment of t he mA and/or kV according to patient size, radiation dose was kept as low as reasonably achievable to obtain optimal diagnostic quality images. FINDINGS: There is panchamber enlargement of the heart. A small pericardial effusion is present, mainly collect ed dependently. Coronary artery calcification is noted. Small right and tiny left pleural effusions are demonstrated and with bibasilar consolidation. The ri ght pleural effusion has mildly loculated/organized, for example series 2 image 31.No lymphadenopathy . Patient is intubated. Endotracheal tube tip is about 5 cm above the saturnino. A Visualized upper abdomen within normal limits. No acute bony abnormality demonstrated. CONCLUSION: 1. Panchamber enlargement of the heart. 2. Small pericardial effusion. 3. Coronary artery calcification. 4. Bilateral pleural effusions and basilar consolidation, right worse than left. Daniel Germain MD on January 05, 2017 at 20:19 Board Certified Radiologist. This report was verified electronically.
[2017-01-05] MEDS: SACUBITRIL/VALSARTAN 24 MG-26 MG TAB PO SCH (21:00)
[2017-01-05] MEDS: INSULIN ASPART SUPPLEMENTAL SCALE SQ SCH (21:00)
[2017-01-05] MEDS: CARVEDILOL 6.25 MG TAB PO SCH (21:00)
[2017-01-05] MEDS: RESP: ALBUTEROL 2.5 MG/IPRATROPIUM 0.5 MG NEB (SCH) NEB (21:06)
[2017-01-05] MEDS: BUMETANIDE INJ 100 ML IV SCH (21:22)
[2017-01-05] MEDS: POTASSIUM CHLOR 20 MEQ PREMIX 100 ML IV SCH ×2 (21:23→22:30)
[2017-01-05] MEDS: PROPOFOL 1000 MG/100 ML IV SCH (21:52)
[2017-01-05 21:55] LABS: APTT (PATIENT) 63.7 SEC (24.3-30.1)
[2017-01-06] VITALS (18 sets, daily range): BP systolic 100–129; BP diastolic 58–83; PULSE 80–111; RESP 14; TEMP 97–99.2; O2SAT 91–97
[2017-01-06] MEDS: RESP: ALBUTEROL 2.5 MG/IPRATROPIUM 0.5 MG NEB (SCH) NEB ×7 (00:22→23:55)
[2017-01-06] MEDS: PROPOFOL 1000 MG/100 ML IV SCH ×3 (01:21→21:43)
[2017-01-06 04:12] LABS: HEMATOCRIT 36.1 % (39.0-51.0); MEAN CELL VOLUME 91.6 FL (80.0-100.0); MEAN CORPUSCULAR HEMOGLOBIN 29.7 PG (27.0-34.0); MEAN CORPUSCULAR HGB CONC 32.5 % (32.0-36.0); PLATELET COUNT 231 TH/MM3 (150-450); RED BLOOD COUNT 3.94 MIL/MM3 (4.50-5.90); RED CELL DISTRIBUTION WIDTH 15.5 % (11.6-17.2); REVIEW FLAG FINAL; WHITE BLOOD COUNT 12.4 TH/MM3 (4.0-11.0)
[2017-01-06] MEDS: FAMOTIDINE 20 MG/2 ML VIAL IV PUSH SCH ×2 (04:14→16:39)
[2017-01-06] MEDS: HEPARIN-D5W INJ 250 ML IV SCH ×2 (04:15→21:47)
[2017-01-06 04:37] LABS: BICARBONATE 39.6 MEQ/L (21.0-32.0); MAGNESIUM 2.3 MG/DL (1.5-2.5)
[2017-01-06 04:41] LABS: APTT (PATIENT) 29.3 SEC (24.3-30.1)
[2017-01-06] MEDS: INSULIN ASPART SUPPLEMENTAL SCALE SQ SCH ×4 (06:19→21:00)
[2017-01-06 06:48] LABS: BLOOD GAS BASE EXCESS 11.9 mmol/L (-2-2); BLOOD GAS CARBOXYHEMOGLOBIN 1.4 % (0-4); BLOOD GAS HCO3 37 mmol/L (22-26); BLOOD GAS METHEMOGLOBIN 1.2 % (0-2); BLOOD GAS PCO2 56 mmHg (38-42); BLOOD GAS PO2 73 mmHg (61-120); BLOOD GAS TOTAL HGB 12.3 G/DL (12.0-16.0); CRITICAL VALUE YES; OXYGEN DEVICE VENTILATOR; TEMP CORR TO 98.6
[2017-01-06 06:49] LABS: BLOOD GAS O2 HGB SATURATION 92 % (90-100); DRAW SITE ART LINE; FIO2 100 %; STAT NO; VENT SETTINGS PRVC/AC
[2017-01-06] MEDS ORDERED: ARTIFICIAL TEARS OPTH SOLN 15 ML BTL EACH EYE PRN (08:15)
--- NOTE | 2017-01-06 08:42 | HHI.CCPN ---
Subjective Remarks/Hospital Course This is a 71-year-old gentleman that presented to [facility] secondary to dyspnea and atrial fibrillation with RVR. The patient has a medical history significant for obesity and hypertension. During his hospitalization at [facility], the patient underwent an echocardiogram which showed severe systolic dysfunction with an ejection fraction of 1015 % the patient then underwent a cardiac catheterization showing significance with left circumflex 90%. The patient underwent multiple attempts of unsuccessful synchronized cardioversion. The patient also underwent medical management with beta blockers, and calcium channel blockers that were also unsuccessful. The patient was transferred to [facility] for cardiac ablation with Dr. Jimenez. The patient was scheduled for cardiac ablation, the procedure was canceled. The patient required emergent intubation and required ventilator management a VLADIMIR was performed showing a clot in the left atrial appendage. The patient was placed on IV Cardizem, and an amiodarone infusion. Critical Care medicine was consulted for management. Subjective: 01/06: Tmax 97.4. The patient remained on elevated vent settings with FiO2 of 1.0 overnight, PEEP requirements were increased to 8, to maintain a PaO2 of greater than [address] scan of the chest was obtained which noted bilateral effusions small, basilar consolidations right worse than the left, and a loculated area representing a possible pneumonia process, empyema, as well as aspiration or just loculated fluid as well as a small pericardial effusion. Cardiology following, The patient continues on Cardizem and amiodarone infusions with a heart rate overnight 80s -115. The patient's vasopressor requirements of phenylephrine decreased to 20 mcgs. Objective Vital Signs Date Time Temp Pulse Resp B/P Pulse Ox O2 Delivery O2 Flow Rate FiO2 01/06/17 07:55 94 90 01/06/17 04:00 Mechanical Ventilator 01/06/17 04:00 94 01/06/17 04:00 97.2 14 114/64 01/05/17 13:54 15 Intake and Output 01/05/17 01/05/17 01/06/17 08:00 16:00 00:00 Intake Total 420 ml 771 ml Output Total 450 ml Balance 420 ml 321 ml Result Diagram: 01/06/17 0345 01/06/17 0345 Other Results Laboratory Tests Test 01/05/17 01/06/17 14:10 06:35 Blood Gas Puncture Site YELITZA ART LINE Blood Gas Patient Temperature 98.6 98.6 Blood Gas HCO3 38 mmol/L 37 mmol/L (22-26) (22-26) Blood Gas Base Excess 13.5 mmol/L 11.9 mmol/L (-2-2) (-2-2) Blood Gas Oxygen Saturation 94 % (90-100) 92 % (90-100) Arterial Blood pH 7.49 7.43 (7.380-7.420) (7.380-7.420) Arterial Blood Partial 51 mmHg (38-42) 56 mmHg (38-42) Pressure CO2 Arterial Blood Partial 87 mmHg 73 mmHg Pressure O2 (61-120) (61-120) Arterial Blood Oxygen Content 18.3 Vol % 16.0 Vol % (12.0-20.0) (12.0-20.0) Arterial Blood 1.6 % (0-4) 1.4 % (0-4) Carboxyhemoglobin Arterial Blood Methemoglobin 1.1 % (0-2) 1.2 % (0-2) Blood Gas Hemoglobin 13.7 G/DL 12.3 G/DL (12.0-16.0) (12.0-16.0) Oxygen Delivery Device VENT VENTILATOR Blood Gas Ventilator Setting PEEP 5, RATE PRVC/AC 14, Blood Gas Inspired Oxygen 100 % 100 % Imaging Last Impressions Chest X-Ray 01/05/17 0000 Signed Impressions: Service Date/Time: Thursday, January 05, 2017 14:20 - CONCLUSION: Cardiomegaly with basilar pleuroparenchymal opacities. ET tube in satisfactory position. Daniel Cantu MD Chest CT 01/05/17 0000 Signed Impressions: Service Date/Time: Thursday, January 05, 2017 18:08 - CONCLUSION: 1. Panchamber enlargement of the heart. 2. Small pericardial effusion. 3. Coronary artery calcification. 4. Bilateral pleural effusions and basilar consolidation, right worse than left. Daniel Germain MD Objective Remarks GENERAL: Critically ill-appearing appropriately stated age, obese male sedated and intubated SKIN: Peripheral extremities cool and mottled. HEAD: Atraumatic. Normocephalic. EYES: Pupils equal and round, 3mm. No scleral icterus. No injection or drainage. ENT: No nasal bleeding or discharge. Mucous membranes pink and moist. Orotracheally intubated NECK: Trachea midline. Unable to assess JVD secondary to body habitus. CARDIOVASCULAR: Irregularly irregular rhythm. RESPIRATORY: Mechanical ventilation. Clear to auscultation, diminished in bases. Breath sounds equal bilaterally. GASTROINTESTINAL: Abdomen soft, obese non-tender, nondistended. MUSCULOSKELETAL: Extremities without clubbing, cyanosis, or edema. No obvious deformities. NEUROLOGICAL: RASS -2. Intubated and sedated. Urinary Catheter: Yes Alanis insert reason: ICU Pt Getting Diuretics Date of Insertion: January 05, 2017 A/P Assessment and Plan A. fib with RVR Left atrial appendage thrombus Cardiomyopathy Systolic CHF Acute hypoxic respiratory failure Hypertension Renal insufficiency Obesity Probable aspiration Possible multilobar [id number] Bilateral pleural effusion Hypokalemia Leukocytosis Neurologic: Propofol for sedation to maintain ventilator synchrony Neurochecks per ICU protocol Respiratory: Maintain O2 sat greater than 92%, wean FiO2 Increasing O2 requirements currently FiO2 of 1.0, PEEP 8, will continue to decrease FiO2 to maintain a PaO2 of 60 or greater. Continue ARDS net protocol 01/05 CT chest-pericardial effusion small, bilateral effusions, basilar consolidation and right greater than left Continue diuresis-currently on Bumex 0.5 mg/hour per nephrology Bronchodilators schedule every 4 hours, every 2 hours when necessary CPAP trials and clinically indicated Possible empyema, consolidated right lung plan to repeat CT in 3 days, and obtain ultrasound to quantify effusions for possible intervention. Will contact CVT surgery if indicated Cardiovascular: Continue heparin infusion Continue Amiodarone infusion Currently phenylephrine 20 mcgs continue to wean off for MAP greater than 65mmHG 01/05 VLADIMIR-left atrial thrombus 12/26 [facility] severe systolic dysfunction EF 1015%, mitral valve mild to moderate regurg, LAE, tricuspid Valve-mild to moderate regurg, small pericardial effusion, cardiac cath left circumflex 90% occlusion Maintain MAP greater than 65mmHg Cardiology following-Dr. Jimenez 01/05 [id number] Renal: Nephrology following-Dr. Hahn Currently on Bumex infusion 0.5 mg/hour Creatinine slightly decreased 3.08-> 2.94 today, and tinea to monitor Urine [id number] cc in the last 12 hours -- Strict I/Os FEN/GI: Insert OGT Dietary consult-begin tube feeds Monitor BMP -we'll replete potassium with 50 mEq by mouth, potassium level this a.m. 3.0 Bowel regimen Heme/ID: Monitor CBC Obtain urine, sputum, blood cultures Begin empiric antibiotics Endocrine: Glucose monitoring per ICU protocol -- SSI Prophylaxis: GI Prophylaxis Pepcid twice a day DVT Prophylaxis -- SCDs Heparin infusion per cardiology Lines: Peripheral IV's. Central line if indicated Dispo: Discussed with patient's , Dr. Jimenez, and FRUIT OR NUT GROWER at bedside. This patient remains critically ill with one or more organ systems which are or may become a threat to life. I have spent in excess of 50 minutes discontinuously in the care and management of this patient. This time is exclusive of procedures, and includes, but is not limited to, evaluation of the patient, review of the medical record, discussions with family, consultants, nursing staff, or respiratory therapy, and documentation in the medical record. Physician Marianne Reilly MD January 06, 2017 08:42
[2017-01-06] MEDS: ASPIRIN 81 MG CHEW TAB PO SCH (08:55)
[2017-01-06] MEDS: CARVEDILOL 6.25 MG TAB PO SCH ×2 (08:56→21:00)
[2017-01-06] MEDS: HYDROCHLOROTHIAZIDE 25 MG TAB PO SCH (08:56)
[2017-01-06] MEDS: POTASSIUM CHLOR 20 MEQ PREMIX 100 ML IV SCH ×2 (08:56→11:00)
[2017-01-06] MEDS: SACUBITRIL/VALSARTAN 24 MG-26 MG TAB PO SCH ×2 (08:56→21:00)
[2017-01-06] MEDS: hydrALAZINE HCL 25 MG TAB PO SCH ×2 (08:56→21:00)
[2017-01-06] MEDS ORDERED: POTASSIUM CHLORIDE 25 MEQ EFFERVESCENT TAB PO ONE (09:00)
--- NOTE | 2017-01-06 10:28 | RADRPT ---
EXAM DATE/TIME: 01/06/2017 10:08 [facility] COMPARISON: CHEST SINGLE AP, January 05, 2017, 14:20. INDICATIONS : Evaluate for central line placement. Respiratory failure and pleural effusions. MEDICAL HISTORY : Cardiovascular disease. Hypertension. Renal disease SURGICAL HISTORY : Coronary artery stent. ENCOUNTER: Subsequent ACUITY: 1 day PAIN SCORE: Non-responsive. LOCATION: Bilateral chest FINDINGS: A single AP semierect view of the chest was obtained and demonstrates placement of a right internal j ugular central venous line with the tip projected over the superior vena cava. There is no evidence o f pneumothorax. There has also been placement of a nasogastric tube which is seen coursing through th e esophagus and into the stomach. The endotracheal tube remains in place with the tip approximately 4 cm above the saturnino. Abnormal opacity is again noted in both lung bases with blunting of the costoph renic angles. The heart size remains moderately enlarged. CONCLUSION: 1. Interval placement of right internal jugular central venous line with no evidence of pneumothorax. 2. Interval placement of nasogastric tube. 3. Moderate cardiomegaly again noted with bibasal opacity and effusions. Ar Lunsford MD on January 06, 2017 at 10:24 Board Certified Radiologist. This report was verified electronically.
[2017-01-06] MEDS: CEFEPIME INJ 2,000 MG in SODIUM CHLORIDE 0.9% INJ 100 ML IV SCH (12:00)
[2017-01-06 12:18] LABS: BLOOD GAS BASE EXCESS 12.3 mmol/L (-2-2); BLOOD GAS CARBOXYHEMOGLOBIN 1.4 % (0-4); BLOOD GAS HCO3 37 mmol/L (22-26); BLOOD GAS METHEMOGLOBIN 1.2 % (0-2); BLOOD GAS O2 HGB SATURATION 92 % (90-100); BLOOD GAS OXYGEN CONTENT 16.4 Vol % (12.0-20.0); BLOOD GAS PCO2 58 mmHg (38-42); BLOOD GAS PO2 76 mmHg (61-120); BLOOD GAS TOTAL HGB 12.6 G/DL (12.0-16.0); TEMP CORR TO 98.6
[2017-01-06 12:19] LABS: CRITICAL VALUE YES; FIO2 90 %; OXYGEN DEVICE VENTILATOR; VENT SETTINGS 14/500/PEEP8
[2017-01-06 12:20] LABS: DRAW SITE ART LINE; STAT NO
[2017-01-06 12:49] LABS: APTT (PATIENT) 76.3 SEC (24.3-30.1)
[2017-01-06] MEDS: AZITHROMYCIN INJ 500 MG in SODIUM CHLOR 0.9% 250 ML INJ 250 ML IV SCH (13:00)
[2017-01-06] MEDS ORDERED: CHLORHEXIDINE GLUCONATE 2 % 1 PACK (2 CLOTHS) TOP PRN ×2 (13:15→13:30)
[2017-01-06] MEDS ORDERED: BISACODYL 10 MG SUPP RECTAL PRN (13:15)
[2017-01-06] MEDS ORDERED: MISCELLANEOUS NURSING INFORMATION XX SCH ×2 (13:15→13:30)
--- NOTE | 2017-01-06 13:17 | PD.PROCEDR ---
Central Line Procedure REASON FOR PROCEDURE Central venous access PROCEDURE PERFORMED Central line placement: Right IJ CONSENT Informed consent for procedure was obtained from . The risks and benefits of the procedure were discussed to include but limited to bleeding, clot formation, infection, and even . ANESTHESIA Local injection of 1% Lidocaine DESCRIPTION OF THE PROCEDURE The patient was placed in supine, mild Trendelenburg position. The area was exposed and cleansed with ChloraPrep, times two. Large sterile drape was used to cover the patient, with the site exposed, under sterile conditions including cap, face mask, sterile gown, and sterile gloves. On single attempt, the introducer needle was inserted with negative pressure in syringe and venous flash was obtained. The guide wire was then advanced without any restriction and the needle was removed. The dilator was used without any complications. Using Seldinger technique the 7 [place] catheter was advanced over the guide wire to a depth of 18 centimeters. The guide wire was removed. All ports were aspirated with dark venous blood return and flushed easily with sterile saline. All ports were capped. Antibiotic disc was placed around central line at puncture site. The central line was secured to the skin with two interrupted 2.0 silk sutures. The area was bandaged with sterile see-through central line bandage. RADIOLOGICAL DATA Ultrasound guidance was used to locate right IJ. Doppler/color flow was used to confirm venous flow. COMPLICATIONS: No apparent complications ESTIMATED BLOOD LOSS: Less than 1 cc. Marianne Foy MD January 06, 2017 13:17
--- NOTE | 2017-01-06 13:19 | HHI.PR ---
Subjective Remarks On mechanical ventilation Objective Vital Signs Date Time Temp Pulse Resp B/P Pulse Ox O2 Delivery O2 Flow Rate FiO2 01/06/17 12:20 93 80 01/06/17 11:15 97.9 96 14 112/58 95 01/06/17 11:15 90 01/06/17 11:15 95 Mechanical Ventilator 90 01/06/17 10:54 92 90 01/06/17 07:55 94 90 01/06/17 07:45 91 Mechanical Ventilator 90 01/06/17 07:45 90 01/06/17 07:15 98.0 111 14 128/69 91 01/06/17 06:45 95 90 01/06/17 04:44 95 100 01/06/17 04:00 100 01/06/17 04:00 95 Mechanical Ventilator 100 01/06/17 04:00 94 01/06/17 04:00 97.2 94 14 114/64 95 01/06/17 00:26 97 100 01/06/17 00:00 96 01/06/17 00:00 100 01/06/17 00:00 96 Mechanical Ventilator 100 01/06/17 00:00 97.0 97 14 100/65 96 01/05/17 22:31 97 100 01/05/17 20:00 97.4 93 14 114/65 94 01/05/17 20:00 92 01/05/17 20:00 94 Mechanical Ventilator 100 01/05/17 19:35 94 100 01/05/17 19:30 100 01/05/17 19:00 100 01/05/17 18:30 100 01/05/17 18:30 92 100 01/05/17 18:00 98 100 01/05/17 17:45 100 100 01/05/17 17:45 97.5 93 14 114/75 96 124/70 01/05/17 17:30 118 14 111/69 99 Mechanical Ventilator 100 01/05/17 17:15 107 14 115/68 99 Mechanical Ventilator 100 01/05/17 17:00 121 14 115/67 99 Mechanical Ventilator 100 01/05/17 16:45 122 14 113/65 99 Mechanical Ventilator 100 01/05/17 16:30 125 14 108/68 99 Mechanical Ventilator 100 01/05/17 16:15 125 14 114/68 99 Mechanical Ventilator 100 01/05/17 16:00 97.8 128 14 117/69 98 Mechanical Ventilator 100 01/05/17 15:45 122 14 122/70 98 Mechanical Ventilator 100 01/05/17 15:30 129 14 112/68 98 Mechanical Ventilator 100 01/05/17 15:15 128 14 119/74 98 Mechanical Ventilator 100 01/05/17 15:00 126 14 122/80 98 Mechanical Ventilator 100 01/05/17 14:45 132 14 126/86 97 Mechanical Ventilator 100 01/05/17 14:30 134 14 127/89 97 Mechanical Ventilator 100 01/05/17 14:15 141 13 111/60 97 Mechanical Ventilator 100 01/05/17 14:00 130 13 163/92 98 Mechanical Ventilator 100 01/05/17 13:54 97.7 136 24 93/71 93 Ambu Bag 01/05/17 13:50 98 100 I/O 01/05/17 01/05/17 01/05/17 01/06/17 01/06/17 01/06/17 07:00 15:00 23:00 07:00 15:00 23:00 Intake Total 420 ml 500 ml 271 ml 1180 ml Output Total 300 ml 150 ml 1100 ml Balance 420 ml 200 ml 121 ml 80 ml Intake Oral 240 ml 0 ml IV Total 180 ml 271 ml 1180 ml Other 500 ml Output Urine Total 300 ml 150 ml 1100 ml # Voids 4 # Bowel Movements 0 0 Result Diagram: 01/06/175 01/06/17 034 Imaging Alert, sedated, on mechanical ventilation, intubated Lungs: decrease right basal ventilation Heart: S1, S2 irregular, tachycardia Abdomen: obese, no mass Ext: no edema Central line at right jugular vein Current Medications Medications (Trade) Dose Ordered Sig/Claire Route Start Time Stop Time Status Last Admin (Aspirin Chew) 81 mg DAILY PO 01/05/17 09:00 01/06/17 08:55 (Hydrodiuril) 25 mg DAILY PO 01/05/17 09:00 Hydralazine HCl 25 mg 25 mg BID PO 01/04/17 21:00 01/04/17 20:47 Diltiazem HCl 125 mg/Sodium Chloride 125 ml @ 0 mls/hr TITRATE IV 01/04/17 21:15 01/05/17 21:22 Sodium Chloride 500 ml @ 30 mls/hr CONTINUOUS IV 01/05/17 10:00 (NS 500 ml Inj) 500 ml @ 30 mls/hr CONTINUOUS IV 01/05/17 09:15 (Coreg) 6.25 mg BID PO 01/05/17 21:00 Sacubitril/ Valsartan 1 tab 1 tab BID PO 01/05/17 21:00 (Cordarone Inj/ D5W ([place]) Inj) 250 ml @ 0 mls/hr CONTINUOUS IV 01/05/17 13:45 01/05/17 21:22 (Coumadin) 5 mg DAILY@1600 PO 01/05/17 20:00 (Heparin Inj) 5,000 units UNSCH PRN IV 01/05/17 19:45 Heparin Sodium (Porcine) 2500 units 2,500 units UNSCH PRN IV 01/05/17 19:45 (Heparin-D5W Inj) 250 ml @ 0 mls/hr TITRATE IV 01/05/17 14:00 01/06/17 04:15 Miscellaneous Information ALL NURSING DEPARTME... UNSCH PRN .XX 01/05/17 14:20 01/06/17 14:19 (Neosynephrine Inj/D5W 500 ml Inj) 500 ml @ 0 mls/hr TITRATE IV 01/05/17 15:45 01/05/17 21:22 (Brethine Inj) 1 mg UNSCH PRN SQ 01/05/17 16:00 (D50w (Vial) Inj) 25 ml UNSCH PRN IV PUSH 01/05/17 16:30 (Glucagon Inj) 1 mg UNSCH PRN OTHER 01/05/17 16:30 Famotidine 10 mg 10 mg Q12H IV PUSH 01/05/17 17:00 01/06/17 04:14 Bumetanide 100 ml @ 2 mls/hr CONTINUOUS IV 01/05/17 20:00 01/05/17 21:22 (Diprivan 1000 Mg/100ml Inj) 100 ml @ 0 mls/hr TITRATE IV 01/05/17 21:45 01/06/17 04:13 (Tears Naturale Opth Soln) 1 drop Q4H PRN EACH EYE 01/06/17 08:15 (Peridex 0.12% Liq) 15 ml BID@08,20 MT 01/06/17 20:00 (Colace Liq) 100 mg Q12HR PO 01/06/17 21:00 Sennosides 8.8 mg 8.8 mg DAILY PO 01/07/17 09:00 Cefepime HCl 2000 mg/Sodium Chloride 100 ml @ 200 mls/hr Q24H IV 01/06/17 12:00 01/06/17 12:00 (Zithromax Inj/ NS 250 ml Inj) 250 ml @ 250 mls/hr Q24H IV 01/06/17 13:00 Last Impressions Chest X-Ray 01/06/17 0953 Signed Impressions: Service Date/Time: Friday, January 06, 2017 10:08 - CONCLUSION: 1. Interval placement of right internal jugular central venous line with no evidence of pneumothorax. 2. Interval placement of nasogastric tube. 3. Moderate cardiomegaly again noted with bibasal opacity and effusions. Ar Lunsford MD Chest CT 01/05/17 0000 Signed Impressions: Service Date/Time: Thursday, January 05, 2017 18:08 - CONCLUSION: 1. Panchamber enlargement of the heart. 2. Small pericardial effusion. 3. Coronary artery calcification. 4. Bilateral pleural effusions and basilar consolidation, right worse than left. Daniel Germain MD Assessment and Plan Problem List: (1) SOB (shortness of breath) Status: Acute Plan: On mechanical ventilation (2) CHF (congestive heart failure) Status: Acute Plan: EF 15%. On clarissa for BP support. Will be weaned If BP allow, milrinone will be initiated. Chest CT show right sided loculation. Possible mass VS empyema. CT will be repeated . Interventional radiology already involved. Patient condition is of care. (3) Atrial fibrillation with rapid ventricular response Status: Acute Plan: HR still high. Will continue for now on IV amio and cardizem Creat high . SP LHC and PTCA to Cfx. Digoxin cannot be used for now Kamiro was consulted Problem Qualifiers (1) CHF (congestive heart failure): Narcisa Jimenez MD January 06, 2017 13:19
--- NOTE | 2017-01-06 13:24 | HHI.NPPN ---
Subjective General Problems: Anemia, Edema, Heart Disease Renal Failure: Acute History of Present Illness 71-year-old the white male the who is transferred from [facility] to [facility] due to atrial fibrillation with fast ventricular response, he was in the heart catheterization lab and became unstable has to intubated the patient has chronic kidney disease, Cardiomyopathy ejection fraction of only 15% and has severe dilated cardiomyopathy with the clot in left atrium he is on heparin drip and currently on ventilator. Additional Remarks Patient remain on the vent. and sedated, non oliguric. Objective Data Data 01/05/17 01/06/17 19:00 07:00 Intake Total 771 ml 1180 ml Output Total 450 ml 1100 ml Balance 321 ml 80 ml Intake Oral 0 ml IV Total 271 ml 1180 ml Other 500 ml Output Urine Total 450 ml 1100 ml # Bowel Movements 0 Vital Signs Date Time Temp Pulse Resp B/P Pulse Ox O2 Delivery O2 Flow Rate FiO2 01/06/17 12:20 93 80 01/06/17 11:15 97.9 96 14 112/58 95 01/06/17 11:15 90 01/06/17 11:15 95 Mechanical Ventilator 90 01/06/17 10:54 92 90 01/06/17 07:55 94 90 01/06/17 07:45 91 Mechanical Ventilator 90 01/06/17 07:45 90 01/06/17 07:15 98.0 111 14 128/69 91 01/06/17 06:45 95 90 01/06/17 04:44 95 100 01/06/17 04:00 100 01/06/17 04:00 95 Mechanical Ventilator 100 01/06/17 04:00 94 01/06/17 04:00 97.2 94 14 114/64 95 01/06/17 00:26 97 100 01/06/17 00:00 96 01/06/17 00:00 100 01/06/17 00:00 96 Mechanical Ventilator 100 01/06/17 00:00 97.0 97 14 100/65 96 01/05/17 22:31 97 100 01/05/17 20:00 97.4 93 14 114/65 94 01/05/17 20:00 92 01/05/17 20:00 94 Mechanical Ventilator 100 01/05/17 19:35 94 100 01/05/17 19:30 100 01/05/17 19:00 100 01/05/17 18:30 100 01/05/17 18:30 92 100 01/05/17 18:00 98 100 01/05/17 17:45 100 100 01/05/17 17:45 97.5 93 14 114/75 96 124/70 01/05/17 17:30 118 14 111/69 99 Mechanical Ventilator 100 01/05/17 17:15 107 14 115/68 99 Mechanical Ventilator 100 01/05/17 17:00 121 14 115/67 99 Mechanical Ventilator 100 01/05/17 16:45 122 14 113/65 99 Mechanical Ventilator 100 01/05/17 16:30 125 14 108/68 99 Mechanical Ventilator 100 01/05/17 16:15 125 14 114/68 99 Mechanical Ventilator 100 01/05/17 16:00 97.8 128 14 117/69 98 Mechanical Ventilator 100 01/05/17 15:45 122 14 122/70 98 Mechanical Ventilator 100 01/05/17 15:30 129 14 112/68 98 Mechanical Ventilator 100 01/05/17 15:15 128 14 119/74 98 Mechanical Ventilator 100 01/05/17 15:00 126 14 122/80 98 Mechanical Ventilator 100 01/05/17 14:45 132 14 126/86 97 Mechanical Ventilator 100 01/05/17 14:30 134 14 127/89 97 Mechanical Ventilator 100 01/05/17 14:15 141 13 111/60 97 Mechanical Ventilator 100 01/05/17 14:00 130 13 163/92 98 Mechanical Ventilator 100 01/05/17 13:54 97.7 136 24 93/71 93 Ambu Bag 15 01/05/17 13:50 98 100 -: 01/06/17 0345 01/06/17 0345 Microbiology 01/06/17 Influenza Types A,B Antigen (TONY), Ordered Pending 01/06/17 Gram Stain, Ordered Pending 01/06/17 Sputum Culture, Ordered Pending 01/06/17 Legionella Antigen, Ordered Pending 01/06/17 Urine Culture, Ordered Pending 01/06/17 Legionella Antigen - Final, Complete PRESUMPTIVE NEGATIVE FOR LEGIONELLA P... 01/06/17 Urine Culture, Received Pending 01/06/17 Urine Culture, Received Pending 01/06/17 Gram Stain, Received Pending 01/06/17 Sputum Culture, Received Pending 01/06/17 Influenza Types A,B Antigen (TONY), Received Pending Physical Exam General Appearance Remarks Intubated and sedated. Eyes Eye Exam: Pupils Equal Throat Throat Exam: Oral Mucosa Heber & Moist Pulmonary Resp Exam: Crackles, Rhonchi, Decreased Bases, Diminished Breath Sounds Cardiology CV Exam: Regular, Normal Sinus Rhythm Gastrointestinal/Abdomen GI Exam: Soft, Non-Tender, Distended Extremeties Extremities Exam: Moderate Edema, Pitting Edema, Dependent Edema Neurologic Neuro Exam: Sedated Assessment/Plan Problem List: (1) Acute renal failure Plan: Patient is now on Bumex drip, urine out put is good. He has poor ejection fraction and is intubated Severe cardiomyopathy prognosis is guarded. Creatinine is stable, K was low and replaced. Started on GT feeding. (2) CKD (chronic kidney disease) stage 4, GFR 15-29 ml/min Plan: Has high creatinine check kidney ultrasound (3) CHF (congestive heart failure) Plan: Severe cardiomyopathy EF 10-15% (4) Atrial fibrillation with rapid ventricular response Plan: Has a blood clot in LA appendage (5) Hypokalemia Plan: potassium is ordered to be replaced Problem Qualifiers (1) CHF (congestive heart failure): Ney Candelaria MD January 06, 2017 13:24
[2017-01-06] MEDS: WARFARIN SOD 5 MG TAB PO SCH (16:29)
[2017-01-06 19:04] LABS: APTT (PATIENT) 80.8 SEC (24.3-30.1)
[2017-01-06] MEDS: SODIUM CHLORIDE 0.9% FLUSH 10 ML FLUSH IV FLUSH SCH (21:00)
[2017-01-06] MEDS: CHLORHEXIDINE 0.12% (ORAL KIT) 15 ML CUP MT SCH (21:42)
[2017-01-06] MEDS: DOCUSATE SODIUM 100 MG/10 ML UDC PO SCH (21:43)
--- NOTE | 2017-01-06 22:05 | EKG ---
Date Performed: 01/05/2017 Time Performed: 09:53:26 PTAGE: 71 years EKG: Atrial fibrillation with rapid ventricular response with PVC(s) IV conduction defect Inferi or/lateral ST-T changes may be due to myocardial ischemia Abnormal ECG NO PREVIOUS TRACING DOCTOR: Narcisa Jimenez Interpretating Date/Time 01/06/2017 22:01:06
[2017-01-07] VITALS (18 sets, daily range): BP systolic 91–134; BP diastolic 57–76; PULSE 78–121; RESP 16–19; TEMP 98.1–99.4; O2SAT 92–96
[2017-01-07] MEDS: PROPOFOL 1000 MG/100 ML IV SCH ×4 (00:50→20:53)
[2017-01-07] MEDS: RESP: ALBUTEROL 2.5 MG/IPRATROPIUM 0.5 MG NEB (SCH) NEB ×5 (03:30→19:14)
[2017-01-07 03:38] LABS: AUTOMATED NEUTROPHIL # 8.1 TH/MM3 (1.8-7.7); BASOPHIL % 0.3 % (0.0-2.0); EOSINOPHIL % 0.4 % (0.0-4.0); HEMATOCRIT 35.2 % (39.0-51.0); HEMO FLAGS DIFF FINAL; LYMPH % 9.1 % (9.0-44.0); LYMPHOCYTE # 0.9 TH/MM3 (1.0-4.8); MEAN CELL VOLUME 91.2 FL (80.0-100.0); MEAN CORPUSCULAR HEMOGLOBIN 29.9 PG (27.0-34.0); MEAN CORPUSCULAR HGB CONC 32.8 % (32.0-36.0); MONO % 9.1 % (0.0-8.0); NEUT % 81.1 % (16.0-70.0); PLATELET COUNT 177 TH/MM3 (150-450); RED BLOOD COUNT 3.86 MIL/MM3 (4.50-5.90); RED CELL DISTRIBUTION WIDTH 15.2 % (11.6-17.2)
[2017-01-07 03:47] LABS: APTT (PATIENT) 36.4 SEC (24.3-30.1); INTERNATIONAL NORMALIZED RATIO 1.2 RATIO; PROTHROMBIN TIME - PATIENT 12.8 SEC (9.8-11.6)
[2017-01-07] MEDS: CHLORHEXIDINE GLUCONATE 2 % 1 PACK (2 CLOTHS) TOP SCH ×2 (04:00)
[2017-01-07 04:05] LABS: BICARBONATE 37.5 MEQ/L (21.0-32.0); MAGNESIUM 2.2 MG/DL (1.5-2.5); POTASSIUM 3.5 MEQ/L (3.5-5.1)
[2017-01-07] MEDS: AMIODARONE INJ 450 MG in D5W (EXCEL BAG) 241 ML IV SCH ×2 (04:33→20:09)
[2017-01-07] MEDS: HEPARIN SODIUM - IV 10,000 UNITS/10 ML VIAL IV PRN (04:51)
[2017-01-07] MEDS: FAMOTIDINE 20 MG/2 ML VIAL IV PUSH SCH ×2 (04:51→17:24)
--- NOTE | 2017-01-07 04:59 | RADRPT ---
EXAM DATE/TIME: 01/07/2017 03:55 [place] COMPARISON: CHEST SINGLE AP, January 06, 2017, 10:08. INDICATIONS : Shortness of breath, possible pulmonary disease. MEDICAL HISTORY : Cardiovascular disease. Hypertension Renal disease SURGICAL HISTORY : Coronary artery stent. ENCOUNTER: Subsequent ACUITY: 2 days PAIN SCORE: Non-responsive. LOCATION: Bilateral chest FINDINGS: A single view of the chest demonstrates unchanged position of the endotracheal tube, nasogastric tube and right jugular central line. Heart moderately enlarged with pulmonary vascular congestion and bib asilar airspace disease. Osseous structures are intact. CONCLUSION: 1. Cardiomegaly with improving bibasilar airspace disease. Edgardo Mayorga MD on January 07, 2017 at 4:56 Board Certified Radiologist. This report was verified electronically.
[2017-01-07 05:42] LABS: BLOOD GAS BASE EXCESS 10.1 mmol/L (-2-2); BLOOD GAS CARBOXYHEMOGLOBIN 1.5 % (0-4); BLOOD GAS HCO3 35 mmol/L (22-26); BLOOD GAS METHEMOGLOBIN 1.1 % (0-2); BLOOD GAS O2 HGB SATURATION 94 % (90-100); BLOOD GAS OXYGEN CONTENT 15.5 Vol % (12.0-20.0); BLOOD GAS PCO2 53 mmHg (38-42); BLOOD GAS PO2 83 mmHg (61-120); BLOOD GAS TOTAL HGB 11.7 G/DL (12.0-16.0); CRITICAL VALUE YES; OXYGEN DEVICE VENTILATOR; TEMP CORR TO 98.6
[2017-01-07 05:43] LABS: DRAW SITE ART LINE; FIO2 80 %; STAT NO; VENT SETTINGS PRVC/AC
[2017-01-07] MEDS ORDERED: GELATIN 12 MM/7 MM FOAM TOPICAL SCH (05:45)
[2017-01-07] MEDS: INSULIN ASPART SUPPLEMENTAL SCALE SQ SCH ×3 (05:56→18:18)
[2017-01-07] MEDS ORDERED: ESMOLOL DRIP INJ PREMIX 250 ML IV SCH (06:45)
--- NOTE | 2017-01-07 08:08 | HHI.CCPN ---
Subjective Remarks/Hospital Course This is a 71-year-old gentleman that presented to [facility] secondary to dyspnea and atrial fibrillation with RVR. The patient has a medical history significant for obesity and hypertension. During his hospitalization at [facility], the patient underwent an echocardiogram which showed severe systolic dysfunction with an ejection fraction of 1015 % the patient then underwent a cardiac catheterization showing significance with left circumflex 90%. The patient underwent multiple attempts of unsuccessful synchronized cardioversion. The patient also underwent medical management with beta blockers, and calcium channel blockers that were also unsuccessful. The patient was transferred to [facility] for cardiac ablation with Dr. Jimenez. The patient was scheduled for cardiac ablation, the procedure was canceled. The patient required emergent intubation and required ventilator management a VLADIMIR was performed showing a clot in the left atrial appendage. The patient was placed on IV Cardizem, and an amiodarone infusion. Critical Care medicine was consulted for management. Subjective: 01/06: Tmax 97.4. The patient remained on elevated vent settings with FiO2 of 1.0 overnight, PEEP requirements were increased to 8, to maintain a PaO2 of greater than [address] scan of the chest was obtained which noted bilateral effusions small, basilar consolidations right worse than the left, and a loculated area representing a possible pneumonia process, empyema, as well as aspiration or just loculated fluid as well as a small pericardial effusion. The patient continues on Cardizem and amiodarone infusions with a heart rate overnight 80s -115. The patient's vasopressor requirements of phenylephrine diminished to 20 mcgs. 01/07: Tmax 99.2. Yesterday the central line was placed for vasoactive medications and CVP monitoring, small hematoma noted near the right IJ area soft no compression of major vessels, with resolution of bleeding in that area. Phenylephrine was discontinued yesterday. The patient heart rate remains today [id number]. Cardizem infusion has been discontinued in the setting of EF of 10-15%. Esmolol infusion to be initiated this a.m.. Coumadin was initiated last night now placed on hold due to patient bleeding from nasopharynx and oropharynx. INR currently 1.2. Plan for CT thorax tomorrow, with possible IR intervention versus CVT consultation for possible empyema the patient will remain on heparin infusion, and transition onto Coumadin after any potential procedures to be initiated. Chest x-ray slightly improved FiO2 decreasing now 70%. Sedation vacation yesterday revealed GCS 11 T, patient alert responsive following commands. With initiation of antibiotics, leukocytosis resolved. ID consulted Dr. Gage. Blood cultures are pending. Objective Vital Signs Date Time Temp Pulse Resp B/P Pulse Ox O2 Delivery O2 Flow Rate FiO2 01/07/17 07:28 95 70 01/07/17 04:00 Mechanical Ventilator 01/07/17 04:00 110 01/07/17 04:00 99.2 17 118/57 01/05/17 13:54 15 Intake and Output 01/06/17 01/06/17 01/07/17 08:00 16:00 00:00 Intake Total 1180 ml 1730 ml Output Total 1100 ml 1775 ml Balance 80 ml -45 ml Result Diagram: 01/07/17 0330 01/07/17 0330 Other Results Microbiology Date/Time Procedure Status Source Growth 01/06/17 10:25 Legionella Antigen - Final Complete Urine Catheterized Urine PRESUMPTIVE NEGATIVE FOR LEGIONELLA P... Laboratory Tests Test 01/06/17 01/07/17 12:04 05:35 Blood Gas Puncture Site ART LINE ART LINE Blood Gas Patient Temperature 98.6 98.6 Blood Gas HCO3 37 mmol/L 35 mmol/L (22-26) (22-26) Blood Gas Base Excess 12.3 mmol/L 10.1 mmol/L (-2-2) (-2-2) Blood Gas Oxygen Saturation 92 % (90-100) 94 % (90-100) Arterial Blood pH 7.43 7.43 (7.380-7.420) (7.380-7.420) Arterial Blood Partial 58 mmHg (38-42) 53 mmHg (38-42) Pressure CO2 Arterial Blood Partial 76 mmHg 83 mmHg Pressure O2 (61-120) (61-120) Arterial Blood Oxygen Content 16.4 Vol % 15.5 Vol % (12.0-20.0) (12.0-20.0) Arterial Blood 1.4 % (0-4) 1.5 % (0-4) Carboxyhemoglobin Arterial Blood Methemoglobin 1.2 % (0-2) 1.1 % (0-2) Blood Gas Hemoglobin 12.6 G/DL 11.7 G/DL (12.0-16.0) (12.0-16.0) Oxygen Delivery Device VENTILATOR VENTILATOR Blood Gas Ventilator Setting 14/500/PEEP8 PRVC/AC Blood Gas Inspired Oxygen 90 % 80 % Imaging Last Impressions Chest X-Ray 01/05/17 0000 Signed Impressions: Service Date/Time: Thursday, January 05, 2017 14:20 - CONCLUSION: Cardiomegaly with basilar pleuroparenchymal opacities. ET tube in satisfactory position. Daniel Cantu MD Chest CT 01/05/17 0000 Signed Impressions: Service Date/Time: Thursday, January 05, 2017 18:08 - CONCLUSION: 1. Panchamber enlargement of the heart. 2. Small pericardial effusion. 3. Coronary artery calcification. 4. Bilateral pleural effusions and basilar consolidation, right worse than left. Daniel Germain MD Objective Remarks GENERAL: Critically ill-appearing appropriately stated age, obese male sedated and intubated SKIN: Peripheral extremities cool and mottled. HEAD: Atraumatic. Normocephalic. EYES: Pupils equal and round, 3mm. No scleral icterus. No injection or drainage. ENT: No nasal bleeding or discharge. Mucous membranes pink and moist. Orotracheally intubated NECK: Trachea midline. Unable to assess JVD secondary to body habitus. Soft tissue swelling noeted at RIJ site,no expansion, area soft, color pink CARDIOVASCULAR: Irregularly irregular rhythm. Telemetry 109-112 RESPIRATORY: Mechanical ventilation. Clear to auscultation, diminished in bases. Breath sounds equal bilaterally. GASTROINTESTINAL: Abdomen soft, obese non-tender, nondistended. MUSCULOSKELETAL: Extremities without clubbing, cyanosis, or edema. No obvious deformities. NEUROLOGICAL: RASS -2. Intubated and sedated. Follows commands moving extremities 4, all sedation Date of Insertion: January 05, 2017 Vascular Central Line Catheter: Yes Assessment to: Continue Date of Insertion: January 06, 2017 Line: Central Venous Catheter Side: Right Location: Internal, Jugular Reason for Continuation Vasopressor administration and CVP monitoring A/P Assessment and Plan A. fib with RVR Left atrial appendage thrombus Cardiomyopathy Systolic CHF Acute hypoxic respiratory failure Hypertension Renal insufficiency Obesity Probable aspiration Possible multilobar [id number] Bilateral pleural effusion Hypokalemia-resolved Leukocytosis-resolved Soft tissue hematoma/ swelling) right neck Neurologic: Propofol for sedation to maintain ventilator synchrony Neurochecks per ICU protocol Respiratory: Maintain O2 sat greater than 92%, wean FiO2 Increasing O2 requirements currently FiO2 70% PEEP 8, will continue to decrease FiO2 to maintain a PaO2 of 60 or greater. Continue ARDS net protocol 01/05 CT chest-pericardial effusion small, bilateral effusions, basilar consolidation and right greater than left Continue diuresis-currently on Bumex 0.5 mg/hour per nephrology Bronchodilators schedule every 4 hours, every 2 hours when necessary Daily CPAP trials Solu-Medrol 40 mg every 6 hours Possible empyema, consolidated lung plan to repeat CT tomorrow 01/08, and obtain ultrasound to quantify effusions for possible intervention. Will contact CVT surgery if indicated. A chin to continue on heparin infusion, for possible interventions then transitioning to Coumadin Cardiovascular: Continue heparin infusion Continue Amiodarone infusion Phenylephrine discontinued 01/06 Cardizem discontinued 01/06 Initiate esmolol infusion 01/05 VLADIMIR-left atrial thrombus 12/26 [facility] severe systolic dysfunction EF 1015%, mitral valve mild to moderate regurg, LAE, tricuspid Valve-mild to moderate regurg, small pericardial effusion, cardiac cath left circumflex 90% occlusion Maintain MAP greater than 65mmHg Cardiology-Dr. Jimenez 01/05 [id number] Renal: Nephrology following-Dr. Hahn Currently on Bumex infusion 0.5 mg/hour Creatinine 3.47 today, continue to monitor Urine output 800 cc in the last 12 hours -- Strict I/Os FEN/GI: Jevity 1.5 @50 cc Monitor BMP Bowel regimen Zofran for nausea Heme/ID: Monitor CBC F/U urine, sputum, blood cultures 01/06-Legionella urine antigen negative Continue cefepime, vancomycin ID following-Dr. Gage Endocrine: Glucose monitoring per ICU protocol, low-dose regimen -- SSI Prophylaxis: GI Prophylaxis Pepcid twice a day DVT Prophylaxis -- SCDs Heparin infusion per cardiology Lines: Peripheral IV's. Right IJ 01/06, soft tissue swelling, on anticoagulants- closely monitoring Discussed with [employer] at bedside. Dispo: This patient remains critically ill with one or more organ systems which are or may become a threat to life. I have spent in excess of 45 minutes discontinuously in the care and management of this patient. This time is exclusive of procedures, and includes, but is not limited to, evaluation of the patient, review of the medical record, discussions with family, consultants, nursing staff, or respiratory therapy, and documentation in the medical record. Physician Marianne Reilly MD January 07, 2017 08:08
[2017-01-07] MEDS: hydrALAZINE HCL 25 MG TAB PO SCH ×2 (08:55→20:59)
[2017-01-07] MEDS: SACUBITRIL/VALSARTAN 24 MG-26 MG TAB PO SCH ×2 (08:56→20:59)
[2017-01-07] MEDS: HYDROCHLOROTHIAZIDE 25 MG TAB PO SCH (08:56)
[2017-01-07] MEDS: DOCUSATE SODIUM 100 MG/10 ML UDC PO SCH ×2 (09:10→20:59)
[2017-01-07] MEDS: methylPREDNISolone SOD SUCC 40 MG/1 ML VIAL IV PUSH SCH ×3 (09:10→20:59)
[2017-01-07] MEDS: SENNOSIDES SYRUP 8.8 MG/5 ML CUP PO SCH (09:10)
[2017-01-07] MEDS: ASPIRIN 81 MG CHEW TAB PO SCH (09:10)
[2017-01-07] MEDS: CHLORHEXIDINE 0.12% (ORAL KIT) 15 ML CUP MT SCH ×2 (09:11→21:00)
[2017-01-07] MEDS: SODIUM CHLORIDE 0.9% FLUSH 10 ML FLUSH IV FLUSH SCH ×2 (09:26→21:01)
[2017-01-07 11:40] LABS: APTT (PATIENT) 74.8 SEC (24.3-30.1)
--- NOTE | 2017-01-07 11:42 | PD.ID.CON ---
History of Present Illness Service ID Consult Requested By Dr.Linda Foy Reason for Consult Evaluation and Mment of Pneumonia, possible empyema. Primary Care Physician Unknown Diagnoses: History of Present Illness is a 71 y/o CM with PMHx of Morbid Obesity, HTN, SONU not on BiPAP, Afib with RVR. Patients reports they both had a cold recently and his was slightly worse and associated with significant cough and some low grade fever. He was driving from [place] to his 2nd home in [place] when he had worsening dyspnea and so presented to the [facility]. While at that hospital patient was noted to be in Afib with RVR. He underwent an ECHO which showed severe systolic dysfunction with EF 10-15%. He then underwent a cardiac cath at [facility] with left circumflex 90% blockage. The patient underwent multiple attempts of unsuccessful synchronized cardioversion. The patient also underwent medical management with beta blockers, and calcium channel blockers that were also unsuccessful. The patients reports he was treated with IV antibiotics and blood cultures were negative. The patient was transferred to [facility] for cardiac ablation with Dr. Jimenez. The patient was scheduled for cardiac ablation, the procedure was canceled as the patient required emergent intubation and required ventilator management. A VLADIMIR was performed showing a clot in the left atrial appendage. The patient was placed on IV Cardizem, and an amiodarone infusion. Critical Care medicine was consulted for management. ID was consulted for evaluation and Mment of leucocytosis, Pneumonia, possible empyema. Review of Systems ROS Limitations: Intubated Past Family Social History Allergies: Coded Allergies: No Known Allergies (Unverified , 01/05/17) Pt stated he had No Known Allergies Past Medical History Obesity, HTN Afib CAD Past Surgical History None per patients Reported Medications Reported Meds & Active Scripts Active Reported Carvedilol 25 Mg Tab 25 Mg PO DAILY Hydrochlorothiazide 25 Mg Tab 25 Mg PO DAILY Hydralazine (Hydralazine HCl) 25 Mg Tab 25 Mg PO BID Take with a meal Aspirin 81 Mg Tabdr 81 Mg PO DAILY Active Ordered Medications Current Medications Medications (Trade) Dose Ordered Sig/Claire Route Start Time Stop Time Status Last Admin (Aspirin Chew) 81 mg DAILY PO 01/05/17 09:00 01/07/17 09:10 (Hydrodiuril) 25 mg DAILY PO 01/05/17 09:00 Hydralazine HCl 25 mg 25 mg BID PO 01/04/17 21:00 01/04/17 20:47 Sodium Chloride 500 ml @ 30 mls/hr CONTINUOUS IV 01/05/17 10:00 (NS 500 ml Inj) 500 ml @ 30 mls/hr CONTINUOUS IV 01/05/17 09:15 (Coreg) 6.25 mg BID PO 01/05/17 21:00 Hold Sacubitril/ Valsartan 1 tab 1 tab BID PO 01/05/17 21:00 (Cordarone Inj/ D5W ([place]) Inj) 250 ml @ 0 mls/hr CONTINUOUS IV 01/05/17 13:45 01/07/17 04:33 (Heparin Inj) 5,000 units UNSCH PRN IV 01/05/17 19:45 Heparin Sodium (Porcine) 2500 units 2,500 units UNSCH PRN IV 01/05/17 19:45 01/07/17 04:51 (Heparin-D5W Inj) 250 ml @ 0 mls/hr TITRATE IV 01/05/17 14:00 01/06/17 21:47 (Brethine Inj) 1 mg UNSCH PRN SQ 01/05/17 16:00 (D50w (Vial) Inj) 25 ml UNSCH PRN IV PUSH 01/05/17 16:30 (Glucagon Inj) 1 mg UNSCH PRN OTHER 01/05/17 16:30 Famotidine 10 mg 10 mg Q12H IV PUSH 01/05/17 17:00 01/07/17 04:51 Bumetanide 100 ml @ 1 mls/hr CONTINUOUS IV 01/05/17 20:00 01/07/17 13:30 (Diprivan 1000 Mg/100ml Inj) 100 ml @ 0 mls/hr TITRATE IV 01/05/17 21:45 01/07/17 08:55 (Tears Naturale Opth Soln) 1 drop Q4H PRN EACH EYE 01/06/17 08:15 01/06/17 21:43 (Peridex 0.12% Liq) 15 ml BID@08,20 MT 01/06/17 20:00 01/07/17 09:11 (Colace Liq) 100 mg Q12HR PO 01/06/17 21:00 01/07/17 09:10 Sennosides 8.8 mg 8.8 mg DAILY PO 01/07/17 09:00 01/07/17 09:10 Cefepime HCl 2000 mg/Sodium Chloride 100 ml @ 200 mls/hr Q24H IV 01/06/17 12:00 01/07/17 12:30 (Zithromax Inj/ NS 250 ml Inj) 250 ml @ 250 mls/hr Q24H IV 01/06/17 13:00 01/07/17 13:25 (NS Flush) 2 ml UNSCH PRN IV FLUSH 01/06/17 13:15 (NS Flush) 2 ml BID IV FLUSH 01/06/17 21:00 01/07/17 09:26 (Dulcolax Supp) 10 mg DAILY PRN RECTAL 01/06/17 13:15 Miscellaneous Information 1 Q361D XX 01/06/17 13:15 (Chlorhexidine 2% Cloth) 3 pack Taper DAILY@04 TOP 01/07/17 04:00 01/03/18 03:59 01/07/17 04:00 (Chlorhexidine 2% Cloth) 3 pack UNSCH PRN TOP 01/06/17 13:15 Miscellaneous Information 1 Q361D XX 01/06/17 13:30 (Chlorhexidine 2% Cloth) 3 pack Taper DAILY@04 TOP 01/07/17 04:00 01/03/18 03:59 (Chlorhexidine 2% Cloth) 3 pack UNSCH PRN TOP 01/06/17 13:30 (SoluMEDROL INJ) 40 mg Q6H IV PUSH 01/07/17 09:00 01/07/17 09:10 (NovoLOG SUPPLEMENTAL SCALE) 1 Q6HR SQ 01/07/17 18:00 Family History reviewed and NC to current ID issues. Social History Smoked 1 ppd, ? quit 40 years ago. Social alcohol. No recent binge drinking. No drugs. Lives at home with his . He recently retired. He lives in [place]. Physical Exam Vital Signs Vital Signs Date Time Temp Pulse Resp B/P Pulse Ox O2 Delivery O2 Flow Rate FiO2 01/07/17 11:31 111 01/07/17 11:15 98.2 103 18 91/63 94 121/57 01/07/17 11:15 70 01/07/17 11:15 94 Mechanical Ventilator 70 01/07/17 07:28 95 70 01/07/17 07:15 70 01/07/17 07:15 94 Mechanical Ventilator 70 01/07/17 07:15 98.3 108 18 126/67 95 01/07/17 07:00 113 01/07/17 04:00 93 Mechanical Ventilator 80 01/07/17 04:00 110 01/07/17 04:00 99.2 112 17 118/57 93 01/07/17 04:00 80 01/07/17 03:30 93 80 01/07/17 00:00 94 Mechanical Ventilator 80 01/07/17 00:00 99.4 121 19 110/62 94 01/07/17 00:00 120 01/07/17 00:00 80 01/06/17 23:55 92 80 01/06/17 21:15 95 80 01/06/17 20:00 98.4 109 14 117/62 93 01/06/17 20:00 80 01/06/17 20:00 93 Mechanical Ventilator 80 01/06/17 20:00 108 01/06/17 16:20 93 80 01/06/17 15:04 96 Mechanical Ventilator 80 01/06/17 15:04 90 01/06/17 15:02 103 01/06/17 15:00 99.2 108 14 129/83 97 01/06/17 12:30 92 Mechanical Ventilator 80 01/06/17 12:20 93 80 Physical Exam GENERAL: Obese, well-developed patient, in no apparent distress. SKIN: No rashes, ecchymoses or lesions. Cool and dry. HEAD: Atraumatic. Normocephalic. No temporal or scalp tenderness. EYES: Pupils equal round and reactive. Extraocular motions intact. No scleral icterus. No injection or drainage. ENT: Intubated. NECK: Trachea midline. Supple, nontender, no meningeal signs. Large neck. CARDIOVASCULAR: HS audible. Irregular HR. RESPIRATORY: Breath sounds equal bilaterally decreased in the bases. GASTROINTESTINAL: Abdomen soft, non-tender, nondistended. MUSCULOSKELETAL: Extremities without clubbing, cyanosis, or edema. NEUROLOGICAL: Awake and alert. Grossly non focal Psych: cooperative IV line sites with no e.o infection. Laboratory Laboratory Tests Test 01/06/17 01/06/17 01/06/17 01/06/17 11:50 12:04 13:53 18:26 Activated Partial 76.3 80.8 Thromboplast Time Blood Gas Puncture Site ART LINE Blood Gas Patient Temperature 98.6 Blood Gas HCO3 37 Blood Gas Base Excess 12.3 Blood Gas Oxygen Saturation 92 Arterial Blood pH 7.43 Arterial Blood Partial 58 Pressure CO2 Arterial Blood Partial 76 Pressure O2 Arterial Blood Oxygen Content 16.4 Arterial Blood 1.4 Carboxyhemoglobin Arterial Blood Methemoglobin 1.2 Blood Gas Hemoglobin 12.6 Oxygen Delivery Device VENTILATOR Blood Gas Ventilator Setting 14/500/PEEP8 Blood Gas Inspired Oxygen 90 Nasal Screen MRSA (PCR) MRSA NOT DETECTED Test 01/07/17 01/07/17 03:30 05:35 White Blood Count 10.0 Red Blood Count 3.86 Hemoglobin 11.6 Hematocrit 35.2 Mean Corpuscular Volume 91.2 Mean Corpuscular Hemoglobin 29.9 Mean Corpuscular Hemoglobin 32.8 Concent Red Cell Distribution Width 15.2 Platelet Count 177 Mean Platelet Volume 8.7 Neutrophils (%) (Auto) 81.1 Lymphocytes (%) (Auto) 9.1 Monocytes (%) (Auto) 9.1 Eosinophils (%) (Auto) 0.4 Basophils (%) (Auto) 0.3 Neutrophils # (Auto) 8.1 Lymphocytes # (Auto) 0.9 Monocytes # (Auto) 0.9 Eosinophils # (Auto) 0.0 Basophils # (Auto) 0.0 CBC Comment DIFF FINAL Differential Comment Prothrombin Time 12.8 Prothromb Time International 1.2 Ratio Activated Partial 36.4 Thromboplast Time Sodium Level 144 Potassium Level 3.5 Chloride Level 97 Carbon Dioxide Level 37.5 Anion Gap 10 Blood Urea Nitrogen 103 Creatinine 3.47 Estimat Glomerular Filtration 18 Rate Random Glucose 153 Calcium Level 8.1 Phosphorus Level 4.7 Magnesium Level 2.2 Blood Gas Puncture Site ART LINE Blood Gas Patient Temperature 98.6 Blood Gas HCO3 35 Blood Gas Base Excess 10.1 Blood Gas Oxygen Saturation 94 Arterial Blood pH 7.43 Arterial Blood Partial 53 Pressure CO2 Arterial Blood Partial 83 Pressure O2 Arterial Blood Oxygen Content 15.5 Arterial Blood 1.5 Carboxyhemoglobin Arterial Blood Methemoglobin 1.1 Blood Gas Hemoglobin 11.7 Oxygen Delivery Device VENTILATOR Blood Gas Ventilator Setting PRVC/AC Blood Gas Inspired Oxygen 80 Date/Time Procedure Status Source Growth 01/06/17 18:37 Aerobic Blood Culture - Preliminary Resulted Blood Peripheral NO GROWTH IN 1 DAY 01/06/17 18:37 Anaerobic Blood Culture - Preliminary Resulted Blood Peripheral NO GROWTH IN 1 DAY 01/06/17 11:03 Influenza Types A,B Antigen (TONY) Received Nasal Washing Pending 01/06/17 10:55 Gram Stain - Final Resulted Sputum Endotracheal 01/06/17 10:55 Sputum Culture Resulted Sputum Endotracheal Pending 01/06/17 10:32 Urine Culture Received Urine Catheterized Urine Pending 01/06/17 10:25 Legionella Antigen - Final Complete Urine Catheterized Urine PRESUMPTIVE NEGATIVE FOR LEGIONELLA P... 01/06/17 00:00 Legionella Antigen Ordered Urine Catheterized Urine Pending 01/06/17 00:00 Gram Stain Ordered Sputum Endotracheal Pending 01/06/17 00:00 Sputum Culture Ordered Sputum Endotracheal Pending Result Diagram: 01/07/17 0330 01/07/17 0330 Imaging Last Impressions Chest X-Ray 01/07/17 0600 Signed Impressions: Service Date/Time: Saturday, January 07, 2017 03:55 - CONCLUSION: 1. Cardiomegaly with improving bibasilar airspace disease. Edgardo Mayorga MD Chest CT 01/05/17 0000 Signed Impressions: Service Date/Time: Thursday, January 05, 2017 18:08 - CONCLUSION: 1. Panchamber enlargement of the heart. 2. Small pericardial effusion. 3. Coronary artery calcification. 4. Bilateral pleural effusions and basilar consolidation, right worse than left. Daniel Germain MD Assessment and Plan Assessment and Plan Pneumonia: ? Viral followed by Secondary bacterial pneumonia, Atypical pneumonia. Possible Empyema. Afib with RVR: infection as precipitant. Ischemic Cardiomyopathy EF 10-15% SONU not on BiPAP. Acute renal failure: sepsis, contrast, meds. Hyperglycemia ? DM, ? stress Acute resp failure on vent. Recs: continue Cefepime IV Continue Azithro IV Check Procalcitonin. Check CRP and LFTs (on Amiodarone and antibiotics) US chest left and right for markings. Will determine based on clinical follow up, procalcitonin levels and US findings if thoracentesis needed and possible. Thoracentesis with moderate effusion will have both diagnostic and therapeutic benefit. Will follow clinically Will follow cultures case d.w patients in room explained above plan Case d.w bedside RN. Gema Gage MD January 07, 2017 11:42 Gema Gage MD January 07, 2017 11:42
[2017-01-07 11:54] LABS: BLOOD GAS CARBOXYHEMOGLOBIN 1.4 % (0-4); BLOOD GAS HCO3 36 mmol/L (22-26); BLOOD GAS METHEMOGLOBIN 1.6 % (0-2); BLOOD GAS O2 HGB SATURATION 92 % (90-100); BLOOD GAS OXYGEN CONTENT 15.4 Vol % (12.0-20.0); BLOOD GAS PCO2 54 mmHg (38-42); BLOOD GAS PO2 78 mmHg (61-120); BLOOD GAS TOTAL HGB 11.8 G/DL (12.0-16.0); TEMP CORR TO 98.6
[2017-01-07 11:55] LABS: CRITICAL VALUE YES; DRAW SITE ART LINE; FIO2 70 %; OXYGEN DEVICE VENTILATOR; STAT NO; VENT SETTINGS PRVC/AC
[2017-01-07] MEDS: CEFEPIME INJ 2,000 MG in SODIUM CHLORIDE 0.9% INJ 100 ML IV SCH (12:30)
[2017-01-07 12:31] LABS: INTERNATIONAL NORMALIZED RATIO 1.2 RATIO; PROTHROMBIN TIME - PATIENT 12.8 SEC (9.8-11.6)
--- NOTE | 2017-01-07 13:03 | HHI.NPPN ---
Subjective General Problems: Anemia, Edema, Heart Disease Renal Failure: Acute History of Present Illness 71-year-old the white male the who is transferred from [facility] to [facility] due to atrial fibrillation with fast ventricular response, he was in the heart catheterization lab and became unstable has to intubated the patient has chronic kidney disease, Cardiomyopathy ejection fraction of only 15% and has severe dilated cardiomyopathy with the clot in left atrium he is on heparin drip and currently on ventilator. Additional Remarks Patient remain on the vent. and sedated, clinically same, has increase HR. Objective Data Data 01/06/17 01/07/17 19:00 07:00 Intake Total 1730 ml 1361 ml Output Total 1775 ml 800 ml Balance -45 ml 561 ml Intake Oral 0 ml IV Total 1609 ml 875 ml Tube Feeding 121 ml 486 ml Output Urine Total 1775 ml 800 ml # Bowel Movements 0 0 Vital Signs Date Time Temp Pulse Resp B/P Pulse Ox O2 Delivery O2 Flow Rate FiO2 01/07/17 12:00 92 60 01/07/17 11:44 94 70 01/07/17 11:31 111 01/07/17 11:15 98.2 103 18 91/63 94 121/57 01/07/17 11:15 70 01/07/17 11:15 94 Mechanical Ventilator 70 01/07/17 07:28 95 70 01/07/17 07:15 70 01/07/17 07:15 94 Mechanical Ventilator 70 01/07/17 07:15 98.3 108 18 126/67 95 01/07/17 07:00 113 01/07/17 04:00 93 Mechanical Ventilator 80 01/07/17 04:00 110 01/07/17 04:00 99.2 112 17 118/57 93 01/07/17 04:00 80 01/07/17 03:30 93 80 01/07/17 00:00 94 Mechanical Ventilator 80 01/07/17 00:00 99.4 121 19 110/62 94 01/07/17 00:00 120 01/07/17 00:00 80 01/06/17 23:55 92 80 01/06/17 21:15 95 80 01/06/17 20:00 98.4 109 14 117/62 93 01/06/17 20:00 80 01/06/17 20:00 93 Mechanical Ventilator 80 01/06/17 20:00 108 01/06/17 16:20 93 80 01/06/17 15:04 96 Mechanical Ventilator 80 01/06/17 15:04 90 01/06/17 15:02 103 01/06/17 15:00 99.2 108 14 129/83 97 -: 01/07/17 0330 01/07/17 0330 Microbiology 01/06/17 Aerobic Blood Culture - Preliminary, Resulted NO GROWTH IN 1 DAY 01/06/17 Anaerobic Blood Culture - Preliminary, Resulted NO GROWTH IN 1 DAY 01/06/17 Aerobic Blood Culture - Preliminary, Resulted NO GROWTH IN 1 DAY 01/06/17 Anaerobic Blood Culture - Preliminary, Resulted NO GROWTH IN 1 DAY Physical Exam General Appearance Remarks Intubated and sedated. Eyes Eye Exam: Pupils Equal Throat Throat Exam: Oral Mucosa [place] & Moist Pulmonary Resp Exam: Crackles, Rhonchi, Decreased Bases, Diminished Breath Sounds Cardiology CV Exam: Regular, Normal Sinus Rhythm Gastrointestinal/Abdomen GI Exam: Soft, Non-Tender, Distended Extremeties Extremities Exam: Moderate Edema, Pitting Edema, Dependent Edema Neurologic Neuro Exam: Sedated Assessment/Plan Problem List: (1) Acute renal failure Plan: Patient is now on Bumex drip, urine out put is good. He has poor ejection fraction and is intubated Severe cardiomyopathy prognosis is guarded. Creatinine increasing. I will decrease Bumex. Cardiology is following for tachycardia. (2) CKD (chronic kidney disease) stage 4, GFR 15-29 ml/min Plan: Has high creatinine check kidney ultrasound (3) CHF (congestive heart failure) Plan: Severe cardiomyopathy EF 10-15% (4) Atrial fibrillation with rapid ventricular response Plan: Has a blood clot in LA appendage (5) Hypokalemia Plan: potassium is ordered to be replaced Problem Qualifiers (1) CHF (congestive heart failure): Ney Candelaria MD January 07, 2017 13:03
[2017-01-07] MEDS: AZITHROMYCIN INJ 500 MG in SODIUM CHLOR 0.9% 250 ML INJ 250 ML IV SCH (13:25)
[2017-01-07] MEDS: BUMETANIDE INJ 100 ML IV SCH (13:30)
--- NOTE | 2017-01-07 18:06 | HHI.PR ---
Subjective Remarks On mechanical ventilation Objective Vital Signs Date Time Temp Pulse Resp B/P Pulse Ox O2 Delivery O2 Flow Rate FiO2 01/07/17 15:25 70 01/07/17 15:25 94 Mechanical Ventilator 60 01/07/17 15:25 98.6 109 17 107/69 95 96/58 01/07/17 15:00 113 01/07/17 12:00 92 60 01/07/17 11:44 94 70 01/07/17 11:31 111 01/07/17 11:15 98.2 103 18 91/63 94 121/57 01/07/17 11:15 70 01/07/17 11:15 94 Mechanical Ventilator 70 01/07/17 07:28 95 70 01/07/17 07:15 70 01/07/17 07:15 94 Mechanical Ventilator 70 01/07/17 07:15 98.3 108 18 126/67 95 01/07/17 07:00 113 01/07/17 04:00 93 Mechanical Ventilator 80 01/07/17 04:00 110 01/07/17 04:00 99.2 112 17 118/57 93 01/07/17 04:00 80 01/07/17 03:30 93 80 01/07/17 00:00 94 Mechanical Ventilator 80 01/07/17 00:00 99.4 121 19 110/62 94 01/07/17 00:00 120 01/07/17 00:00 80 01/06/17 23:55 92 80 01/06/17 21:15 95 80 01/06/17 20:00 98.4 109 14 117/62 93 01/06/17 20:00 80 01/06/17 20:00 93 Mechanical Ventilator 80 01/06/17 20:00 108 I/O 01/06/17 01/06/17 01/06/17 01/07/17 01/07/17 01/07/17 07:00 15:00 23:00 07:00 15:00 23:00 Intake Total 1180 ml 1730 ml 1361 ml Output Total 1100 ml 1775 ml 800 ml 20.0 ml Balance 80 ml -45 ml 561 ml -20.0 ml Intake Oral 0 ml 0 ml IV Total 1180 ml 1609 ml 875 ml Tube Feeding 121 ml 486 ml Output Urine Total 1100 ml 1775 ml 800 ml Tube Feeding Residual Discard 20.0 ml # Bowel Movements 0 0 0 Result Diagram: 01/07/17 0330 01/07/17 0330 Imaging Sedated, on mechanical ventilation lungs: decrease right ventilation Heart: S1, S2 irregular, tachycardia Abdomen: soft, obese, no mass ext: no edema Last Impressions Chest X-Ray 01/07/17 0600 Signed Impressions: Service Date/Time: Saturday, January 07, 2017 03:55 - CONCLUSION: 1. Cardiomegaly with improving bibasilar airspace disease. Edgardo Mayorga MD Chest CT 01/05/17 0000 Signed Impressions: Service Date/Time: Thursday, January 05, 2017 18:08 - CONCLUSION: 1. Panchamber enlargement of the heart. 2. Small pericardial effusion. 3. Coronary artery calcification. 4. Bilateral pleural effusions and basilar consolidation, right worse than left. Daniel Germain MD Current Medications Medications (Trade) Dose Ordered Sig/Claire Route Start Time Stop Time Status Last Admin (Aspirin Chew) 81 mg DAILY PO 01/05/17 09:00 01/07/17 09:10 (Hydrodiuril) 25 mg DAILY PO 01/05/17 09:00 Hydralazine HCl 25 mg 25 mg BID PO 01/04/17 21:00 01/04/17 20:47 Sodium Chloride 500 ml @ 30 mls/hr CONTINUOUS IV 01/05/17 10:00 (NS 500 ml Inj) 500 ml @ 30 mls/hr CONTINUOUS IV 01/05/17 09:15 (Coreg) 6.25 mg BID PO 01/05/17 21:00 Hold Sacubitril/ Valsartan 1 tab 1 tab BID PO 01/05/17 21:00 (Cordarone Inj/ D5W ([place]) Inj) 250 ml @ 0 mls/hr CONTINUOUS IV 01/05/17 13:45 01/07/17 04:33 (Heparin Inj) 5,000 units UNSCH PRN IV 01/05/17 19:45 Heparin Sodium (Porcine) 2500 units 2,500 units UNSCH PRN IV 01/05/17 19:45 01/07/17 04:51 (Heparin-D5W Inj) 250 ml @ 0 mls/hr TITRATE IV 01/05/17 14:00 01/06/17 21:47 (Brethine Inj) 1 mg UNSCH PRN SQ 01/05/17 16:00 (D50w (Vial) Inj) 25 ml UNSCH PRN IV PUSH 01/05/17 16:30 (Glucagon Inj) 1 mg UNSCH PRN OTHER 01/05/17 16:30 Famotidine 10 mg 10 mg Q12H IV PUSH 01/05/17 17:00 01/07/17 17:24 Bumetanide 100 ml @ 1 mls/hr CONTINUOUS IV 01/05/17 20:00 01/07/17 13:30 (Diprivan 1000 Mg/100ml Inj) 100 ml @ 0 mls/hr TITRATE IV 01/05/17 21:45 01/07/17 08:55 (Tears Naturale Opth Soln) 1 drop Q4H PRN EACH EYE 01/06/17 08:15 01/06/17 21:43 (Peridex 0.12% Liq) 15 ml BID@08,20 MT 01/06/17 20:00 01/07/17 09:11 (Colace Liq) 100 mg Q12HR PO 01/06/17 21:00 01/07/17 09:10 Sennosides 8.8 mg 8.8 mg DAILY PO 01/07/17 09:00 01/07/17 09:10 Cefepime HCl 2000 mg/Sodium Chloride 100 ml @ 200 mls/hr Q24H IV 01/06/17 12:00 01/07/17 12:30 (Zithromax Inj/ NS 250 ml Inj) 250 ml @ 250 mls/hr Q24H IV 01/06/17 13:00 01/07/17 13:25 (NS Flush) 2 ml UNSCH PRN IV FLUSH 01/06/17 13:15 (NS Flush) 2 ml BID IV FLUSH 01/06/17 21:00 01/07/17 09:26 (Dulcolax Supp) 10 mg DAILY PRN RECTAL 01/06/17 13:15 Miscellaneous Information 1 Q361D XX 01/06/17 13:15 (Chlorhexidine 2% Cloth) 3 pack Taper DAILY@04 TOP 01/07/17 04:00 01/03/18 03:59 01/07/17 04:00 (Chlorhexidine 2% Cloth) 3 pack UNSCH PRN TOP 01/06/17 13:15 Miscellaneous Information 1 Q361D XX 01/06/17 13:30 (Chlorhexidine 2% Cloth) 3 pack Taper DAILY@04 TOP 01/07/17 04:00 01/03/18 03:59 (Chlorhexidine 2% Cloth) 3 pack UNSCH PRN TOP 01/06/17 13:30 (SoluMEDROL INJ) 40 mg Q6H IV PUSH 01/07/17 09:00 01/07/17 15:24 (NovoLOG SUPPLEMENTAL SCALE) 1 Q6HR SQ 01/07/17 18:00 Assessment and Plan Problem List: (1) SOB (shortness of breath) Status: Acute Plan: On mechanical ventilation (2) CHF (congestive heart failure) Status: Acute Plan: SBP 115. creat 3.47. BP was this morning in the 90s. If BP allow, milrinone should be initiated (3) Atrial fibrillation with rapid ventricular response Status: Acute Plan: HR cannot be controlled On amio and cardizem Because of creat cl, digoxin cannot be added now Patient unable to tolerate esmolol due to BP. Case extensively discussed extensively with condition of care Problem Qualifiers (1) CHF (congestive heart failure): Narcisa Jimenez MD January 07, 2017 18:06
[2017-01-07 19:23] LABS: APTT (PATIENT) 81.5 SEC (24.3-30.1)
[2017-01-07 19:44] LABS: BLOOD GAS BASE EXCESS 9.6 mmol/L (-2-2); BLOOD GAS CARBOXYHEMOGLOBIN 1.2 % (0-4); BLOOD GAS HCO3 34 mmol/L (22-26); BLOOD GAS METHEMOGLOBIN 1.3 % (0-2); BLOOD GAS O2 HGB SATURATION 93 % (90-100); BLOOD GAS PCO2 55 mmHg (38-42); BLOOD GAS PO2 82 mmHg (61-120); BLOOD GAS TOTAL HGB 11.4 G/DL (12.0-16.0); TEMP CORR TO 98.6
[2017-01-07 19:45] LABS: CRITICAL VALUE YES; OXYGEN DEVICE VENTILATOR
[2017-01-07 19:46] LABS: DRAW SITE ART LINE; FIO2 60 %; STAT NO; VENT SETTINGS PRVC/AC 500/14
--- NOTE | 2017-01-07 20:09 | RADRPT ---
EXAM DATE/TIME: 01/07/2017 15:58 [facility] COMPARISON: No previous studies available for comparison. INDICATIONS : Pleural effusion. MEDICAL HISTORY : Congestive heart failure. Myocardial infarction. Hypertension. Thyroid disease. Hearing loss. Chronic renal disease. Afib. Hydronephrosis. Hyperparathyroidism. SURGICAL HISTORY : Coronary artery stent. Parathyroid removal. Cardiac catheterization. ENCOUNTER: Initial ACUITY: 1 day PAIN SCORE: Nonresponsive. LOCATION: Left chest MEASUREMENTS: SKIN TO PARIETAL PLEURA: Inadequate fluid SKIN TO MAX SAFE DEPTH: Inadequate fluid ESTIMATED FLUID VOLUME: FLUID COMPOSITION: Inadequate fluid FINDINGS: No marking was performed. CONCLUSION: 1. Inadequate fluid for marking. Osmany Javed MD on January 07, 2017 at 20:07 Board Certified Radiologist. This report was verified electronically.
--- NOTE | 2017-01-07 20:10 | RADRPT ---
EXAM DATE/TIME: 01/07/2017 16:04 [facility] COMPARISON: No previous studies available for comparison. INDICATIONS : Pleural effusion. MEDICAL HISTORY : Congestive heart failure. Myocardial infarction. Hypertension. Thyroid disease. Hearing loss. Chronic renal disease. Afib. Hydronephrosis. Hyperparathyroidism. SURGICAL HISTORY : Coronary artery stent. Parathyroid removal. Cardiac catheterization. ENCOUNTER: Initial ACUITY: 1 day PAIN SCORE: Nonresponsive. LOCATION: Right chest MEASUREMENTS: SKIN TO PARIETAL PLEURA: 3.2 cm SKIN TO MAX SAFE DEPTH: 4.0 cm ESTIMATED FLUID VOLUME: 78 cc FLUID COMPOSITION: simple FINDINGS: Inadequate fluid for safe thoracentesis. CONCLUSION: 1. Small right pleural effusion noted with estimated volume of 78 cc. Amount insufficient for safe th oracentesis with patient in lateral decubitus position. Osmany Javed MD on January 07, 2017 at 20:08 Board Certified Radiologist. This report was verified electronically.
[2017-01-07] MEDS: HEPARIN-D5W INJ 250 ML IV SCH (20:14)
[2017-01-08] VITALS (19 sets, daily range): BP systolic 93–140; BP diastolic 51–81; PULSE 72–122; RESP 14–15; TEMP 97.6–99.1; O2SAT 85–100
[2017-01-08] MEDS: PROPOFOL 1000 MG/100 ML IV SCH ×2 (00:39→06:43)
[2017-01-08] MEDS: INSULIN ASPART SUPPLEMENTAL SCALE SQ SCH ×5 (00:39→22:06)
[2017-01-08] MEDS: RESP: ALBUTEROL 2.5 MG/IPRATROPIUM 0.5 MG NEB (SCH) NEB ×6 (00:54→21:34)
[2017-01-08] MEDS: methylPREDNISolone SOD SUCC 40 MG/1 ML VIAL IV PUSH SCH ×4 (03:20→22:05)
[2017-01-08] MEDS: CHLORHEXIDINE GLUCONATE 2 % 1 PACK (2 CLOTHS) TOP SCH ×2 (04:00)
[2017-01-08 04:03] LABS: APTT (PATIENT) 105.2 SEC (24.3-30.1)
[2017-01-08 04:52] LABS: HEMATOCRIT 34.2 % (39.0-51.0); MEAN CELL VOLUME 91.7 FL (80.0-100.0); MEAN CORPUSCULAR HEMOGLOBIN 29.5 PG (27.0-34.0); MEAN CORPUSCULAR HGB CONC 32.2 % (32.0-36.0); PLATELET COUNT 161 TH/MM3 (150-450); RED BLOOD COUNT 3.73 MIL/MM3 (4.50-5.90); RED CELL DISTRIBUTION WIDTH 15.7 % (11.6-17.2); REVIEW FLAG FINAL; WHITE BLOOD COUNT 10.5 TH/MM3 (4.0-11.0)
[2017-01-08] MEDS: FAMOTIDINE 20 MG/2 ML VIAL IV PUSH SCH ×2 (05:09→19:37)
[2017-01-08 05:17] LABS: BICARBONATE 37.7 MEQ/L (21.0-32.0); MAGNESIUM 2.4 MG/DL (1.5-2.5); POTASSIUM 3.8 MEQ/L (3.5-5.1)
[2017-01-08 05:32] LABS: INDIRECT BILIRUBIN 0.2 MG/DL (0.0-0.8); TOTAL BILIRUBIN ADULT 0.4 MG/DL (0.2-1.0)
--- NOTE | 2017-01-08 08:10 | RADRPT ---
EXAM DATE/TIME: 01/08/2017 07:45 [facility] COMPARISON: CHEST SINGLE AP, January 07, 2017, 3:55. INDICATIONS : Shortness of breath. MEDICAL HISTORY : Cardiovascular disease. Hypertension Renal disease. SURGICAL HISTORY : Coronary artery stent. ENCOUNTER: Subsequent ACUITY: 3 days PAIN SCORE: Non-responsive. LOCATION: Bilateral chest FINDINGS: A single view of the chest demonstrates cardiomegaly with bibasilar densities. An endotracheal tube 4 .5 cm above the saturnino. Nasogastric tube with tip in stomach. Right jugular central line with tip in SVC.. The cardiomediastinal contours are unremarkable. Osseous structures are intact. CONCLUSION: 1. Cardiomegaly with bibasilar densities. Edgardo Mayorga MD on January 08, 2017 at 8:05 Board Certified Radiologist. This report was verified electronically.
[2017-01-08 08:26] LABS: BLOOD GAS BASE EXCESS 9.9 mmol/L (-2-2); BLOOD GAS CARBOXYHEMOGLOBIN 1.3 % (0-4); BLOOD GAS HCO3 35 mmol/L (22-26); BLOOD GAS METHEMOGLOBIN 1.1 % (0-2); BLOOD GAS O2 HGB SATURATION 92 % (90-100); BLOOD GAS OXYGEN CONTENT 14.7 Vol % (12.0-20.0); BLOOD GAS PCO2 54 mmHg (38-42); BLOOD GAS PO2 73 mmHg (61-120); BLOOD GAS TOTAL HGB 11.4 G/DL (12.0-16.0); TEMP CORR TO 98.6
[2017-01-08 08:27] LABS: CRITICAL VALUE YES; DRAW SITE ART LINE; FIO2 60 %; OXYGEN DEVICE VENTILATOR; STAT NO; VENT SETTINGS 14/500/PEEP8
[2017-01-08] MEDS ORDERED: ATROPINE SULFATE 1 MG/ML VIAL ONE (08:28)
[2017-01-08] MEDS ORDERED: EPINEPHrine HCL (1:10,000) 1 MG/10 ML SYRINGE ONE ×2 (08:28→15:36)
[2017-01-08] MEDS ORDERED: ATROPINE SULFATE 1 MG/10 ML SYRINGE ONE (08:29)
--- NOTE | 2017-01-08 09:07 | RADRPT ---
EXAM DATE/TIME: 01/08/2017 08:46 [facility] COMPARISON: CT THORAX W/O CONTRAST, January 05, 2017, 18:08. INDICATIONS : Respiratory distress. Evaluate for pleural effusion. RADIATION DOSE: 9.76 CTDIvol (mGy) MEDICAL HISTORY : Hypertension. Congestive heart failure. SURGICAL HISTORY : None. ENCOUNTER: Subsequent ACUITY: 1 week PAIN SCALE: Non-responsive LOCATION: chest TECHNIQUE: Volumetric scanning of the chest was performed. Using automated exposure control and adjustment of t he mA and/or kV according to patient size, radiation dose was kept as low as reasonably achievable to obtain optimal diagnostic quality images. FINDINGS: The nasogastric tube is across the GE junction. ET tube is in good position Moderate coronary calcifications are noted. Moderate vascular calcifications are evident. Agai n seen is the massive cardiomegaly with bibasilar consolidative changes evident. The solid changes h ave progressed on the right. Trace pleural effusion is noted. Trace pericardial effusion is noted. Apparent soft tissue swelling is noted in the right neck. Correlation is suggested. CONCLUSION: Massive cardiomegaly with panchamber enlargement extensive coronary calcifications. Stable trace per icardial effusion. Increasing bibasilar consolidative changes with minimal bilateral pleural effusio ns.. Rhys Fritz MD FACR on January 08, 2017 at 9:02 Board Certified Radiologist. This report was verified electronically.
[2017-01-08 09:34] LABS: APTT (PATIENT) 51.8 SEC (24.3-30.1)
[2017-01-08 10:29] LABS: HEMATOCRIT 33.2 % (39.0-51.0); REVIEW FLAG FINAL
[2017-01-08] MEDS: ASPIRIN 81 MG CHEW TAB PO SCH (11:09)
[2017-01-08] MEDS: DOCUSATE SODIUM 100 MG/10 ML UDC PO SCH ×2 (11:09→20:20)
[2017-01-08] MEDS: SENNOSIDES SYRUP 8.8 MG/5 ML CUP PO SCH (11:09)
[2017-01-08] MEDS: SACUBITRIL/VALSARTAN 24 MG-26 MG TAB PO SCH ×2 (11:09→20:20)
[2017-01-08] MEDS: HYDROCHLOROTHIAZIDE 25 MG TAB PO SCH (11:10)
[2017-01-08] MEDS: hydrALAZINE HCL 25 MG TAB PO SCH ×2 (11:10→20:20)
[2017-01-08] MEDS: CHLORHEXIDINE 0.12% (ORAL KIT) 15 ML CUP MT SCH ×2 (11:14→20:00)
[2017-01-08] MEDS: AMIODARONE INJ 450 MG in D5W (EXCEL BAG) 241 ML IV SCH (11:15)
[2017-01-08] MEDS: CEFEPIME INJ 2,000 MG in SODIUM CHLORIDE 0.9% INJ 100 ML IV SCH (11:15)
[2017-01-08] MEDS: SODIUM CHLORIDE 0.9% FLUSH 10 ML FLUSH IV FLUSH SCH ×2 (11:18→20:20)
--- NOTE | 2017-01-08 11:29 | RADRPT ---
EXAM DATE/TIME: 01/08/2017 10:26 [place] COMPARISON: CHEST SINGLE AP, January 08, 2017, 7:45. INDICATIONS : Pleural effusion. MEDICAL HISTORY : Cardiovascular disease. Hypertension. Renal disease SURGICAL HISTORY : Coronary artery stent. ENCOUNTER: Subsequent ACUITY: 4 - 6 days PAIN SCORE: Non-responsive. LOCATION: Bilateral chest FINDINGS: ET tube, nasogastric tube are in good position. There are increasing parenchymal changes in the righ t base. There is increasing pleural effusion on the left. Heart remains enlarged. CONCLUSION: Increasing left pleural effusion when compared to study earlier the same day. Rhys Fritz MD FACR on January 08, 2017 at 11:02 Board Certified Radiologist. This report was verified electronically.
[2017-01-08] MEDS: AZITHROMYCIN INJ 500 MG in SODIUM CHLOR 0.9% 250 ML INJ 250 ML IV SCH (12:09)
[2017-01-08] MEDS ORDERED: GLUCAGON 1 MG/ML VIAL OTHER PRN (12:15)
[2017-01-08] MEDS ORDERED: DEXTROSE 50% IN WATER 50 ML VIAL(D50) IV PUSH PRN (12:15)
--- NOTE | 2017-01-08 12:25 | HHI.CCPN ---
Subjective Remarks/Hospital Course This is a 71-year-old gentleman that presented to [facility] secondary to dyspnea and atrial fibrillation with RVR. The patient has a medical history significant for obesity and hypertension. During his hospitalization at [facility], the patient underwent an echocardiogram which showed severe systolic dysfunction with an ejection fraction of 1015 % the patient then underwent a cardiac catheterization showing significance with left circumflex 90%. The patient underwent multiple attempts of unsuccessful synchronized cardioversion. The patient also underwent medical management with beta blockers, and calcium channel blockers that were also unsuccessful. The patient was transferred to [facility] for cardiac ablation with Dr. Jimenez. The patient was scheduled for cardiac ablation, the procedure was canceled. The patient required emergent intubation and required ventilator management a VLADIMIR was performed showing a clot in the left atrial appendage. The patient was placed on IV Cardizem, and an amiodarone infusion. Critical Care medicine was consulted for management. Subjective: 01/06: Tmax 97.4. The patient remained on elevated vent settings with FiO2 of 1.0 overnight, PEEP requirements were increased to 8, to maintain a PaO2 of greater than [address] scan of the chest was obtained which noted bilateral effusions small, basilar consolidations right worse than the left, and a loculated area representing a possible pneumonia process, empyema, as well as aspiration or just loculated fluid as well as a small pericardial effusion. The patient continues on Cardizem and amiodarone infusions with a heart rate overnight 80s -115. The patient's vasopressor requirements of phenylephrine diminished to 20 mcgs. 01/07: Tmax 99.2. Yesterday the central line was placed for vasoactive medications and CVP monitoring, small hematoma noted near the right IJ area soft no compression of major vessels, with resolution of bleeding in that area. Phenylephrine was discontinued yesterday. The patient heart rate remains today [id number]. Cardizem infusion has been discontinued in the setting of EF of 10-15%. Esmolol infusion to be initiated this a.m.. Coumadin was initiated last night now placed on hold due to patient bleeding from nasopharynx and oropharynx. INR currently 1.2. Plan for CT thorax tomorrow, with possible IR intervention versus CVT consultation for possible empyema the patient will remain on heparin infusion, and transition onto Coumadin after any potential procedures to be initiated. Chest x-ray slightly improved FiO2 decreasing now 70%. Sedation vacation yesterday revealed GCS 11 T, patient alert responsive following commands. With initiation of antibiotics, leukocytosis resolved. Blood cultures are pending. 01/08: Patient's heart rate 110-[address] scan of the chest imaging revealed fluid. Plan for thoracentesis and and studies of pleural fluid , this afternoon. The patient remains on amiodarone and heparin infusions, per cardiology. Heparin held, for thoracentesis this afternoon, and then will be resumed. The patient was maintained on CPAP trial for approximately one hour yesterday. During sedation vacation patient was alert following commands recognizing family. Plan to resume CPAP trials this afternoon post thoracentesis. Objective Vital Signs Date Time Temp Pulse Resp B/P Pulse Ox O2 Delivery O2 Flow Rate FiO2 01/08/17 12:04 96 80 01/08/17 11:00 99.1 107 15 106/69 140/62 01/08/17 11:00 Mechanical Ventilator 01/05/17 13:54 15 Intake and Output 01/07/17 01/07/17 01/07/17 07:59 15:59 23:59 Intake Total 1361 ml 1756 ml Output Total 800 ml 20.0 ml 1570 ml Balance 561 ml -20.0 ml 186 ml Result Diagram: 01/08/17 1010 01/08/17 0445 Other Results Microbiology Date/Time Procedure Status Source Growth 01/06/17 10:25 Legionella Antigen - Final Complete Urine Catheterized Urine PRESUMPTIVE NEGATIVE FOR LEGIONELLA P... 01/06/17 10:32 Urine Culture - Final Complete Urine Catheterized Urine NO GROWTH IN 48 HOURS. Laboratory Tests Test 01/07/17 01/08/17 19:32 08:08 Blood Gas Puncture Site ART LINE ART LINE Blood Gas Patient Temperature 98.6 98.6 Blood Gas HCO3 34 mmol/L 35 mmol/L (22-26) (22-26) Blood Gas Base Excess 9.6 mmol/L 9.9 mmol/L (-2-2) (-2-2) Blood Gas Oxygen Saturation 93 % (90-100) 92 % (90-100) Arterial Blood pH 7.42 7.42 (7.380-7.420) (7.380-7.420) Arterial Blood Partial 55 mmHg (38-42) 54 mmHg (38-42) Pressure CO2 Arterial Blood Partial 82 mmHg 73 mmHg Pressure O2 (61-120) (61-120) Arterial Blood Oxygen Content 15.0 Vol % 14.7 Vol % (12.0-20.0) (12.0-20.0) Arterial Blood 1.2 % (0-4) 1.3 % (0-4) Carboxyhemoglobin Arterial Blood Methemoglobin 1.3 % (0-2) 1.1 % (0-2) Blood Gas Hemoglobin 11.4 G/DL 11.4 G/DL (12.0-16.0) (12.0-16.0) Oxygen Delivery Device VENTILATOR VENTILATOR Blood Gas Ventilator Setting PRVC/AC 500/14 14/500/PEEP8 Blood Gas Inspired Oxygen 60 % 60 % Imaging Last Impressions Chest X-Ray 01/05/17 0000 Signed Impressions: Service Date/Time: Thursday, January 05, 2017 14:20 - CONCLUSION: Cardiomegaly with basilar pleuroparenchymal opacities. ET tube in satisfactory position. Daniel Cantu MD Chest CT 01/05/17 0000 Signed Impressions: Service Date/Time: Thursday, January 05, 2017 18:08 - CONCLUSION: 1. Panchamber enlargement of the heart. 2. Small pericardial effusion. 3. Coronary artery calcification. 4. Bilateral pleural effusions and basilar consolidation, right worse than left. Daniel Germain MD Objective Remarks GENERAL: Critically ill-appearing appropriately stated age, obese male sedated and intubated. SKIN: Peripheral extremities cool and mottled. HEAD: Atraumatic. Normocephalic. EYES: Pupils equal and round, 3mm. No scleral icterus. No injection or drainage. ENT: No nasal bleeding or discharge. Mucous membranes pink and moist. Orotracheally intubated right soft tissue hematoma at right IJ entry site, no expansion/extension noted,area soft. NECK: Trachea midline. Unable to assess JVD secondary to body habitus. CARDIOVASCULAR: Irregularly irregular rhythm. Telemetry 109-115 RESPIRATORY: Mechanical ventilation. Clear to auscultation, diminished in bases. Breath sounds equal bilaterally. GASTROINTESTINAL: Abdomen soft, obese non-tender, nondistended. MUSCULOSKELETAL: Extremities without clubbing, cyanosis, or edema. No obvious deformities. NEUROLOGICAL: RASS -2. Intubated and sedated. Follows commands moving extremities 4, off sedation Procedures CT chest, and thoracentesis Date of Insertion: January 05, 2017 Date of Insertion: January 06, 2017 Line: Central Venous Catheter Side: Right Location: Internal, Jugular A/P Assessment and Plan A. fib with RVR Left atrial appendage thrombus Cardiomyopathy Systolic CHF Acute hypoxic respiratory failure Hypertension Renal insufficiency Obesity Probable aspiration Possible multilobar [id number] Bilateral pleural effusion Hypokalemia-resolved Leukocytosis-resolved Soft tissue hematoma right neck Neurologic: Propofol for sedation to maintain ventilator synchrony Neurochecks per ICU protocol GCS 11 T off sedation Respiratory: Maintain O2 sat greater than 92%, wean FiO2 Increasing O2 requirements currently FiO2 70% PEEP 8, will continue to decrease FiO2 to maintain a PaO2 of 60 or greater. Continue ARDS net protocol 01/05 CT chest-pericardial effusion small, bilateral effusions, basilar consolidation and right greater than left Continue diuresis-currently on Bumex 0.5 mg/hour per nephrology Bronchodilators schedule every 4 hours, every 2 hours when necessary Daily CPAP trials Solu-Medrol 40 mg every 6 hours Possible empyema, consolidated lung plan to repeat CT tomorrow 01/08, Will contact CVT surgery if indicated. Patient to continue on heparin infusion, for possible interventions then transitioning to Coumadin per Cardiology Cardiovascular: Continue heparin infusion Continue Amiodarone infusion Phenylephrine discontinued 01/06 Cardizem discontinued 01/07 01/05 VLADIMIR( Administrative And Program Specialist)-left atrial thrombus 12/26 [facility] severe systolic dysfunction EF 1015%, mitral valve mild to moderate regurg, LAE, tricuspid Valve-mild to moderate regurg, small pericardial effusion, cardiac cath left circumflex 90% occlusion Maintain MAP greater than 65mmHg Management per Cardiology - Dr. Jimenez 01/05 BNP-596 Renal: Nephrology following-Dr. Hahn Currently on Bumex infusion 0.5 mg/hour Creatinine 3.47 today, continue to monitor Urine output 2.5 L in the last 24 hours -- Strict I/Os FEN/GI: Tube feeds Jevity 1.5 @50 cc Monitor BMP Bowel regimen Zofran for nausea Heme/ID: Monitor CBC F/U urine, sputum, blood cultures 01/06-Legionella urine antigen negative Continue cefepime, vancomycin Endocrine: Glucose monitoring per ICU protocol, low-dose regimen -- SSI Prophylaxis: GI Prophylaxis Pepcid twice a day DVT Prophylaxis -- SCDs Heparin infusion per cardiology Lines: Peripheral IV's. Right IJ 01/06 Discussed with INDUSTRIAL DESIGNER at bedside. Dispo: This patient remains critically ill with one or more organ systems which are or may become a threat to life. I have spent in excess of 45 minutes discontinuously in the care and management of this patient. This time is exclusive of procedures, and includes, but is not limited to, evaluation of the patient, review of the medical record, discussions with family, consultants, nursing staff, or respiratory therapy, and documentation in the medical record. Physician Marianne Reilly MD January 08, 2017 12:25 Marianne Foy MD January 08, 2017 12:25
--- NOTE | 2017-01-08 15:20 | HHI.NPPN ---
Subjective General Problems: Anemia, Edema, Heart Disease Renal Failure: Acute History of Present Illness 71-year-old the white male the who is transferred from [facility] to [facility] due to atrial fibrillation with fast ventricular response, he was in the heart catheterization lab and became unstable has to intubated the patient has chronic kidney disease, Cardiomyopathy ejection fraction of only 15% and has severe dilated cardiomyopathy with the clot in left atrium he is on heparin drip and currently on ventilator. Additional Remarks Patient remain on the vent. and sedated, clinically same, intubated Objective Data Data 01/07/17 01/08/17 19:00 07:00 Intake Total 1756 ml 1082 ml Output Total 1590.0 ml 855 ml Balance 166.0 ml 227 ml Intake Oral 0 ml IV Total 1036 ml 507 ml Tube Feeding 650 ml 495 ml Tube Irrigant 70 ml Other 80 ml Output Urine Total 1550 ml 855 ml Gastric Drainage Total 20 ml Tube Feeding Residual Discard 20.0 ml # Bowel Movements 0 Vital Signs Date Time Temp Pulse Resp B/P Pulse Ox O2 Delivery O2 Flow Rate FiO2 01/08/17 12:04 96 80 01/08/17 11:00 99.1 107 15 106/69 95 140/62 01/08/17 11:00 106 01/08/17 11:00 95 Mechanical Ventilator 90 01/08/17 11:00 90 01/08/17 10:55 95 90 01/08/17 10:05 89 100 01/08/17 09:15 88 100 01/08/17 08:30 85 100 01/08/17 08:00 122 104/53 93/53 01/08/17 07:24 95 Mechanical Ventilator 60 01/08/17 07:24 98.3 118 15 115/72 95 126/70 01/08/17 07:24 117 01/08/17 07:24 60 01/08/17 07:17 94 60 01/08/17 03:32 93 60 01/08/17 03:00 60 01/08/17 03:00 117 01/08/17 03:00 97.6 118 14 108/81 95 134/71 01/08/17 03:00 95 Mechanical Ventilator 60 01/08/17 00:57 96 60 01/07/17 23:00 60 01/07/17 23:00 95 Mechanical Ventilator 60 01/07/17 23:00 120 01/07/17 23:00 98.1 117 16 113/67 95 119/63 01/07/17 22:55 96 60 01/07/17 20:00 120 102/76 132/60 01/07/17 19:15 95 60 01/07/17 19:00 92 Mechanical Ventilator 60 01/07/17 19:00 118 01/07/17 19:00 98.5 114 17 104/59 92 134/63 01/07/17 19:00 60 01/07/17 16:00 93 60 01/07/17 15:25 70 01/07/17 15:25 94 Mechanical Ventilator 60 01/07/17 15:25 98.6 109 17 107/69 95 96/58 -: 01/08/17 1010 01/08/17 0445 Physical Exam Eyes Eye Exam: Pupils Equal Throat Throat Exam: Oral Mucosa [place] & Moist Pulmonary Resp Exam: Crackles, Rhonchi, Decreased Bases, Diminished Breath Sounds Cardiology CV Exam: Regular, Normal Sinus Rhythm Gastrointestinal/Abdomen GI Exam: Soft, Non-Tender, Distended Extremeties Extremities Exam: Moderate Edema, Pitting Edema, Dependent Edema Neurologic Neuro Exam: Sedated Assessment/Plan Problem List: (1) Acute renal failure Plan: Patient is now on Bumex drip, urine out put is good. He has poor ejection fraction and is intubated Severe cardiomyopathy prognosis is guarded. Creatinine increasing. UOP 2.[address] Chest massive cardiomegaly, Pericardial and Pleural effusions small d/w family (2) CKD (chronic kidney disease) stage 4, GFR 15-29 ml/min Plan: Has high creatinine check kidney ultrasound (3) CHF (congestive heart failure) Plan: Severe cardiomyopathy EF 10-15% (4) Atrial fibrillation with rapid ventricular response Plan: Has a blood clot in LA appendage Problem Qualifiers (1) CHF (congestive heart failure): Christa Hahn MD January 08, 2017 15:20
--- NOTE | 2017-01-08 15:59 | HHI.IDPN ---
Subjective Subjective Remarks is a 71 y/o CM with PMHx of Morbid Obesity, HTN, SONU not on BiPAP, Afib with RVR. Patients reports they both had a cold recently and his was slightly worse and associated with significant cough and some low grade fever. He was driving from [place] to his 2nd home in [place] when he had worsening dyspnea and so presented to the [facility]. While at that hospital patient was noted to be in Afib with RVR. He underwent an ECHO which showed severe systolic dysfunction with EF 10-15%. He then underwent a cardiac cath at [facility] with left circumflex 90% blockage. The patient underwent multiple attempts of unsuccessful synchronized cardioversion. The patient also underwent medical management with beta blockers, and calcium channel blockers that were also unsuccessful. The patients reports he was treated with IV antibiotics and blood cultures were negative. The patient was transferred to [facility] for cardiac ablation with Dr. Jimenez. The patient was scheduled for cardiac ablation, the procedure was canceled as the patient required emergent intubation and required ventilator management. A VLADIMIR was performed showing a clot in the left atrial appendage. The patient was placed on IV Cardizem, and an amiodarone infusion. Critical Care medicine was consulted for management. ID was consulted for evaluation and Mment of leucocytosis, Pneumonia, possible empyema. Overnight events reviewed. No fever No rash No diarrhea remains on vent. Had some fresh bleeding from nose. Also some fresh blood at penile meatus as reported by RN. KARLIE weems. Headed to IR for thoracentesis. Antibiotics Cefepime IV Azithro IV Lines Line sites with no e/o infection. Past Medical History reviewed Allergies: Coded Allergies: No Known Allergies (Unverified , 01/05/17) Pt stated he had No Known Allergies Objective . Vital Signs Date Time Temp Pulse Resp B/P Pulse Ox O2 Delivery O2 Flow Rate FiO2 01/08/17 12:04 96 80 01/08/17 11:00 99.1 107 15 106/69 95 140/62 01/08/17 11:00 106 01/08/17 11:00 95 Mechanical Ventilator 90 01/08/17 11:00 90 01/08/17 10:55 95 90 01/08/17 10:05 89 100 01/08/17 09:15 88 100 01/08/17 08:30 85 100 5/8/17 08:00 122 104/53 93/53 01/08/17 07:24 95 Mechanical Ventilator 60 01/08/17 07:24 98.3 118 15 115/72 95 126/70 01/08/17 07:24 117 01/08/17 07:24 60 01/08/17 07:17 94 60 01/08/17 03:32 93 60 01/08/17 03:00 60 01/08/17 03:00 117 01/08/17 03:00 97.6 118 14 108/81 95 134/71 01/08/17 03:00 95 Mechanical Ventilator 60 01/08/17 00:57 96 60 01/07/17 23:00 60 01/07/17 23:00 95 Mechanical Ventilator 60 01/07/17 23:00 120 01/07/17 23:00 98.1 117 16 113/67 95 119/63 01/07/17 22:55 96 60 01/07/17 20:00 120 102/76 132/60 01/07/17 19:15 95 60 01/07/17 19:00 92 Mechanical Ventilator 60 01/07/17 19:00 118 01/07/17 19:00 98.5 114 17 104/59 92 134/63 01/07/17 19:00 60 01/07/17 16:00 93 60 01/07/17 01/07/17 01/08/17 14:59 22:59 06:59 Intake Total 1756 ml 1082 ml Output Total 20.0 ml 1570 ml 855 ml Balance -20.0 ml 186 ml 227 ml Intake Oral 0 ml IV Total 1036 ml 507 ml Tube Feeding 650 ml 495 ml Tube Irrigant 70 ml Other 80 ml Output Urine Total 1550 ml 855 ml Gastric Drainage Total 20 ml Tube Feeding Residual Discard 20.0 ml # Bowel Movements 0 . Laboratory Tests Test 01/07/17 01/08/17 01/08/17 03:30 04:45 10:10 White Blood Count 10.0 TH/MM3 10.5 TH/MM3 Red Blood Count 3.86 MIL/MM3 3.73 MIL/MM3 Hemoglobin 11.6 GM/DL 11.0 GM/DL 10.7 GM/DL Hematocrit 35.2 % 34.2 % 33.2 % Mean Corpuscular Volume 91.2 FL 91.7 FL Mean Corpuscular Hemoglobin 29.9 PG 29.5 PG Mean Corpuscular Hemoglobin 32.8 % 32.2 % Concent Red Cell Distribution Width 15.2 % 15.7 % Platelet Count 177 TH/MM3 161 TH/MM3 Mean Platelet Volume 8.7 FL 9.8 FL Neutrophils (%) (Auto) 81.1 % Lymphocytes (%) (Auto) 9.1 % Monocytes (%) (Auto) 9.1 % Eosinophils (%) (Auto) 0.4 % Basophils (%) (Auto) 0.3 % Neutrophils # (Auto) 8.1 TH/MM3 Lymphocytes # (Auto) 0.9 TH/MM3 Monocytes # (Auto) 0.9 TH/MM3 Eosinophils # (Auto) 0.0 TH/MM3 Basophils # (Auto) 0.0 TH/MM3 CBC Comment DIFF FINAL Differential Comment Laboratory Tests Test 01/07/17 01/07/17 01/08/17 03:30 11:45 04:45 Sodium Level 144 MEQ/L 144 MEQ/L Potassium Level 3.5 MEQ/L 3.8 MEQ/L Chloride Level 97 MEQ/L 97 MEQ/L Carbon Dioxide Level 37.5 MEQ/L 37.7 MEQ/L Anion Gap 10 MEQ/L 9 MEQ/L Blood Urea Nitrogen 103 MG/DL 103 MG/DL Creatinine 3.47 MG/DL 3.95 MG/DL Estimat Glomerular Filtration 18 ML/MIN 15 ML/MIN Rate Random Glucose 153 MG/DL 200 MG/DL Calcium Level 8.1 MG/DL 8.1 MG/DL Phosphorus Level 4.7 MG/DL 5.8 MG/DL Magnesium Level 2.2 MG/DL 2.4 MG/DL Procalcitonin 0.08 ng/mL Total Bilirubin 0.4 MG/DL Direct Bilirubin 0.2 MG/DL Indirect Bilirubin 0.2 MG/DL Aspartate Amino Transf 36 U/L (AST/SGOT) Alanine Aminotransferase 35 U/L (ALT/SGPT) Alkaline Phosphatase 58 U/L C-Reactive Protein 9.10 MG/DL Total Protein 5.8 GM/DL Albumin 2.2 GM/DL Microbiology Date/Time Procedure Status Source Growth 01/06/17 00:00 Influenza Types A,B Antigen (TONY) Arthur Batch Nasal Washing Pending 01/06/17 00:00 Gram Stain Ordered Sputum Endotracheal Pending 01/06/17 00:00 Sputum Culture Ordered Sputum Endotracheal Pending 01/06/17 00:00 Legionella Antigen Ordered Urine Catheterized Urine Pending 01/06/17 00:00 Urine Culture Ordered Urine Catheterized Urine Pending 01/06/17 10:25 Legionella Antigen - Final Complete Urine Catheterized Urine PRESUMPTIVE NEGATIVE FOR LEGIONELLA P... 01/06/17 10:25 Urine Culture Received Urine Catheterized Urine Pending 01/06/17 10:32 Urine Culture - Final Complete Urine Catheterized Urine NO GROWTH IN 48 HOURS. 01/06/17 10:55 Gram Stain - Final Complete Sputum Endotracheal 01/06/17 10:55 Sputum Culture - Final Complete Sputum Endotracheal HEAVY GROWTH NORMAL RESPIRATORY NIEVES 01/06/17 11:03 Influenza Types A,B Antigen (TONY) Received Nasal Washing Pending 01/06/17 18:33 Aerobic Blood Culture - Preliminary Resulted Blood Peripheral NO GROWTH IN 2 DAYS 01/06/17 18:33 Anaerobic Blood Culture - Preliminary Resulted Blood Peripheral NO GROWTH IN 2 DAYS 01/06/17 18:37 Aerobic Blood Culture - Preliminary Resulted Blood Peripheral NO GROWTH IN 2 DAYS 01/06/17 18:37 Anaerobic Blood Culture - Preliminary Resulted Blood Peripheral NO GROWTH IN 2 DAYS 01/07/17 14:10 Influenza Types A,B Antigen (TONY) Ordered Nasal Washing Pending Imaging Last Impressions Chest CT 01/08/17 0600 Signed Impressions: Service Date/Time: Sunday, January 08, 2017 08:46 - CONCLUSION: Massive cardiomegaly with panchamber enlargement extensive coronary calcifications. Stable trace pericardial effusion. Increasing bibasilar consolidative changes with minimal bilateral pleural effusions.. Rhys Fritz MD FACR Chest X-Ray 01/08/17 0000 Signed Impressions: Service Date/Time: Sunday, January 08, 2017 10:26 - CONCLUSION: Increasing left pleural effusion when compared to study earlier the same day. Rhys Fritz MD FACR Chest Ultrasound 01/07/17 0000 Signed Impressions: Service Date/Time: Saturday, January 07, 2017 16:04 - CONCLUSION: 1. Small right pleural effusion noted with estimated volume of 78 cc. Amount insufficient for safe thoracentesis with patient in lateral decubitus position. Osmany Javed MD Physical Exam GENERAL: Obese, well-developed patient, in no apparent distress. SKIN: No rashes, ecchymoses or lesions. Cool and dry. HEAD: Atraumatic. Normocephalic. No temporal or scalp tenderness. EYES: Pupils equal round and reactive. Extraocular motions intact. No scleral icterus. No injection or drainage. ENT: Intubated. NECK: Trachea midline. Supple, nontender, no meningeal signs. Large neck. CARDIOVASCULAR: HS audible. Irregular HR. RESPIRATORY: Breath sounds equal bilaterally decreased in the bases. GASTROINTESTINAL: Abdomen soft, non-tender, nondistended. MUSCULOSKELETAL: Extremities without clubbing, cyanosis, or edema. NEUROLOGICAL: Awake and alert. Grossly non focal Psych: cooperative IV line sites with no e.o infection. Assessment & Plan Remarks Pneumonia: ? Viral followed by Secondary bacterial pneumonia, Atypical pneumonia. Possible Empyema. Afib with RVR: infection as precipitant. Ischemic Cardiomyopathy EF 10-15% SONU not on BiPAP. Acute renal failure: sepsis, contrast, meds. Hyperglycemia ? DM, ? stress Acute resp failure on vent. Recs: continue Cefepime IV Continue Azithro IV Will follow clinically Will follow cultures case d.w patients in room explained above plan Case d.w bedside Gema Kay MD January 08, 2017 15:59 case d.w patients in room explained above plan Case d.w bedside Gema Kay MD January 08, 2017 15:59
[2017-01-08] MEDS ORDERED: LIDOCAINE 1%/EPINEPHrine 1:100,000 SOLN 20 ML VIAL ONE (16:17)
--- NOTE | 2017-01-08 18:19 | HHI.PR ---
Subjective Remarks On mechanical ventilation Objective Vital Signs Date Time Temp Pulse Resp B/P Pulse Ox O2 Delivery O2 Flow Rate FiO2 01/08/17 17:02 92 80 01/08/17 17:02 100 100 01/08/17 12:04 96 80 01/08/17 11:00 99.1 107 15 106/69 95 140/62 01/08/17 11:00 106 01/08/17 11:00 95 Mechanical Ventilator 90 01/08/17 11:00 90 01/08/17 10:55 95 90 01/08/17 10:05 89 100 01/08/17 09:15 88 100 01/08/17 08:30 85 100 01/08/17 08:00 122 104/53 93/53 01/08/17 07:24 95 Mechanical Ventilator 60 01/08/17 07:24 98.3 118 15 115/72 95 126/70 01/08/17 07:24 117 01/08/17 07:24 60 01/08/17 07:17 94 60 01/08/17 03:32 93 60 01/08/17 03:00 60 01/08/17 03:00 117 01/08/17 03:00 97.6 118 14 108/81 95 134/71 01/08/17 03:00 95 Mechanical Ventilator 60 01/08/17 00:57 96 60 01/07/17 23:00 60 01/07/17 23:00 95 Mechanical Ventilator 60 01/07/17 23:00 120 01/07/17 23:00 98.1 117 16 113/67 95 119/63 01/07/17 22:55 96 60 01/07/17 20:00 120 102/76 132/60 01/07/17 19:15 95 60 01/07/17 19:00 92 Mechanical Ventilator 60 01/07/17 19:00 118 01/07/17 19:00 98.5 114 17 104/59 92 134/63 01/07/17 19:00 60 I/O 01/07/17 01/07/17 01/07/17 01/08/17 01/08/17 01/08/17 07:00 15:00 23:00 07:00 15:00 23:00 Intake Total 1361 ml 1756 ml 1082 ml Output Total 800 ml 20.0 ml 1570 ml 855 ml Balance 561 ml -20.0 ml 186 ml 227 ml Intake Oral 0 ml 0 ml IV Total 875 ml 1036 ml 507 ml Tube Feeding 486 ml 650 ml 495 ml Tube Irrigant 70 ml Other 80 ml Output Urine Total 800 ml 1550 ml 855 ml Gastric Drainage Total 20 ml Tube Feeding Residual Discard 20.0 ml # Bowel Movements 0 0 Result Diagram: 01/08/17 1010 01/08/17 0445 Imaging On mechanical ventilation, follow verbal commands Lungs: ventilated Heart: S1, S2 regular Abdomen: soft, no mass, obese Ext: no edema Last Impressions Chest CT 01/08/17 0600 Signed Impressions: Service Date/Time: Sunday, January 08, 2017 08:46 - CONCLUSION: Massive cardiomegaly with panchamber enlargement extensive coronary calcifications. Stable trace pericardial effusion. Increasing bibasilar consolidative changes with minimal bilateral pleural effusions.. Rhys Fritz MD FACR Chest X-Ray 01/08/17 0000 Signed Impressions: Service Date/Time: Sunday, January 08, 2017 10:26 - CONCLUSION: Increasing left pleural effusion when compared to study earlier the same day. Rhys Fritz MD FACR Chest Ultrasound 01/07/17 0000 Signed Impressions: Service Date/Time: Saturday, January 07, 2017 16:04 - CONCLUSION: 1. Small right pleural effusion noted with estimated volume of 78 cc. Amount insufficient for safe thoracentesis with patient in lateral decubitus position. Osmany Javed MD Current Medications Medications (Trade) Dose Ordered Sig/Claire Route Start Time Stop Time Status Last Admin (Aspirin Chew) 81 mg DAILY PO 01/05/17 09:00 01/08/17 11:09 (Hydrodiuril) 25 mg DAILY PO 01/05/17 09:00 01/08/17 11:10 Hydralazine HCl 25 mg 25 mg BID PO 01/04/17 21:00 01/08/17 11:10 Sodium Chloride 500 ml @ 30 mls/hr CONTINUOUS IV 01/05/17 10:00 (NS 500 ml Inj) 500 ml @ 30 mls/hr CONTINUOUS IV 01/05/17 09:15 (Coreg) 6.25 mg BID PO 01/05/17 21:00 Hold Sacubitril/ Valsartan 1 tab 1 tab BID PO 01/05/17 21:00 01/08/17 11:09 (Cordarone Inj/ D5W ([place]) Inj) 250 ml @ 0 mls/hr CONTINUOUS IV 01/05/17 13:45 01/08/17 11:15 (Heparin Inj) 5,000 units UNSCH PRN IV 01/05/17 19:45 Heparin Sodium (Porcine) 2500 units 2,500 units UNSCH PRN IV 01/05/17 19:45 01/07/17 04:51 (Heparin-D5W Inj) 250 ml @ 0 mls/hr TITRATE IV 01/05/17 14:00 01/07/17 20:14 (Brethine Inj) 1 mg UNSCH PRN SQ 01/05/17 16:00 Famotidine 10 mg 10 mg Q12H IV PUSH 01/05/17 17:00 01/08/17 05:09 Bumetanide 100 ml @ 1 mls/hr CONTINUOUS IV 01/05/17 20:00 01/07/17 13:30 (Diprivan 1000 Mg/100ml Inj) 100 ml @ 0 mls/hr TITRATE IV 01/05/17 21:45 01/08/17 06:43 (Tears Naturale Opth Soln) 1 drop Q4H PRN EACH EYE 01/06/17 08:15 01/06/17 21:43 (Peridex 0.12% Liq) 15 ml BID@08,20 MT 01/06/17 20:00 01/08/17 11:14 (Colace Liq) 100 mg Q12HR PO 01/06/17 21:00 01/08/17 11:09 Sennosides 8.8 mg 8.8 mg DAILY PO 01/07/17 09:00 01/08/17 11:09 Cefepime HCl 2000 mg/Sodium Chloride 100 ml @ 200 mls/hr Q24H IV 01/06/17 12:00 01/08/17 11:15 (Zithromax Inj/ NS 250 ml Inj) 250 ml @ 250 mls/hr Q24H IV 01/06/17 13:00 01/08/17 12:09 (NS Flush) 2 ml UNSCH PRN IV FLUSH 01/06/17 13:15 (NS Flush) 2 ml BID IV FLUSH 01/06/17 21:00 01/08/17 11:18 (Dulcolax Supp) 10 mg DAILY PRN RECTAL 01/06/17 13:15 Miscellaneous Information 1 Q361D XX 01/06/17 13:15 (Chlorhexidine 2% Cloth) 3 pack Taper DAILY@04 TOP 01/07/17 04:00 01/03/18 03:59 01/08/17 04:00 (Chlorhexidine 2% Cloth) 3 pack UNSCH PRN TOP 01/06/17 13:15 (SoluMEDROL INJ) 40 mg Q6H IV PUSH 01/07/17 09:00 01/08/17 11:09 (D50w (Vial) Inj) 25 ml UNSCH PRN IV PUSH 01/08/17 12:15 (Glucagon Inj) 1 mg UNSCH PRN OTHER 01/08/17 12:15 Assessment and Plan Problem List: (1) SOB (shortness of breath) Status: Acute Plan: On mechanical ventilation Thoracocentesis done today 400 cc of yellowish fluid removed BP ok. Doing better (2) CHF (congestive heart failure) Status: Acute Plan: SBP 145. On no pressor creat 3.95. Continue with current management (3) Atrial fibrillation with rapid ventricular response Status: Acute Plan: Converted into sinus rhythm. On anticoagulation On amio CHF improve Continue with current management Problem Qualifiers (1) CHF (congestive heart failure): Narcisa Jimenez MD January 08, 2017 18:19
[2017-01-08 19:44] LABS: APTT (PATIENT) 26.1 SEC (24.3-30.1)
[2017-01-08] MEDS: HEPARIN SODIUM - IV 10,000 UNITS/10 ML VIAL IV PRN (20:21)
[2017-01-09] VITALS (18 sets, daily range): BP systolic 101–148; BP diastolic 52–76; PULSE 52–120; RESP 15–21; TEMP 97.8–98.8; O2SAT 90–97
[2017-01-09] MEDS: RESP: ALBUTEROL 2.5 MG/IPRATROPIUM 0.5 MG NEB (SCH) NEB ×5 (00:57→16:49)
[2017-01-09 01:28] LABS: APTT (PATIENT) 53.4 SEC (24.3-30.1)
[2017-01-09] MEDS: HEPARIN-D5W INJ 250 ML IV SCH ×2 (02:21→20:34)
[2017-01-09] MEDS: methylPREDNISolone SOD SUCC 40 MG/1 ML VIAL IV PUSH SCH ×4 (02:22→20:05)
[2017-01-09] MEDS: AMIODARONE INJ 450 MG in D5W (EXCEL BAG) 241 ML IV SCH (02:22)
[2017-01-09] MEDS: PROPOFOL 1000 MG/100 ML IV SCH ×6 (02:22→23:11)
[2017-01-09] MEDS: CHLORHEXIDINE GLUCONATE 2 % 1 PACK (2 CLOTHS) TOP SCH (04:00)
[2017-01-09] MEDS: FAMOTIDINE 20 MG/2 ML VIAL IV PUSH SCH ×2 (05:18→16:33)
[2017-01-09 06:11] LABS: HEMATOCRIT 31.1 % (39.0-51.0); MEAN CELL VOLUME 90.8 FL (80.0-100.0); MEAN CORPUSCULAR HEMOGLOBIN 29.8 PG (27.0-34.0); MEAN CORPUSCULAR HGB CONC 32.8 % (32.0-36.0); PLATELET COUNT 161 TH/MM3 (150-450); RED BLOOD COUNT 3.42 MIL/MM3 (4.50-5.90); RED CELL DISTRIBUTION WIDTH 15.2 % (11.6-17.2); REVIEW FLAG FINAL; WHITE BLOOD COUNT 11.2 TH/MM3 (4.0-11.0)
[2017-01-09 06:30] LABS: BLOOD GAS CARBOXYHEMOGLOBIN 1.5 % (0-4); BLOOD GAS HCO3 34 mmol/L (22-26); BLOOD GAS METHEMOGLOBIN 1.1 % (0-2); BLOOD GAS O2 HGB SATURATION 91 % (90-100); BLOOD GAS PCO2 50 mmHg (38-42); BLOOD GAS PO2 67 mmHg (61-120); BLOOD GAS TOTAL HGB 10.1 G/DL (12.0-16.0); TEMP CORR TO 98.6
[2017-01-09 06:31] LABS: CRITICAL VALUE YES; DRAW SITE ART LINE; FIO2 80 %; OXYGEN DEVICE VENTILATOR; STAT NO; VENT SETTINGS PRVC/AC
[2017-01-09 06:39] LABS: BICARBONATE 38.2 MEQ/L (21.0-32.0); MAGNESIUM 2.6 MG/DL (1.5-2.5); POTASSIUM 3.6 MEQ/L (3.5-5.1)
[2017-01-09] MEDS: INSULIN ASPART SUPPLEMENTAL SCALE SQ SCH ×4 (06:44→20:54)
--- NOTE | 2017-01-09 06:54 | RADRPT ---
EXAM DATE/TIME: 01/09/2017 06:23 [facility] COMPARISON: CHEST SINGLE AP, January 08, 2017, 10:26. INDICATIONS : Shortness of breath. MEDICAL HISTORY : None. SURGICAL HISTORY : None. ENCOUNTER: Subsequent ACUITY: 1 week PAIN SCORE: 0/10 LOCATION: Bilateral chest FINDINGS: A single portable frontal view the chest shows no significant change. Consolidation involving the lef t lung with aeration of a small portion of left apex. Right lung is clear. Tip of the endotracheal tu be 4 cm from the saturnino. Nasogastric tube courses off the inferior margin of the film. Heart is mildl y enlarged. CONCLUSION: 1. No significant change. Near-complete consolidation of the left lung with suspected left effusion. John Ramirez Jr., MD on January 09, 2017 at 6:52 Board Certified Radiologist. This report was verified electronically.
[2017-01-09] MEDS ORDERED: GLUCAGON 1 MG/ML VIAL OTHER PRN (07:15)
--- NOTE | 2017-01-09 08:03 | RADRPT ---
EXAM DATE/TIME: 01/08/2017 16:08 INDICATIONS : Right thorascentisis; pleural effusion. DEVICE(S): 1.) 6 Fr catheter Total volume of 400 cc of clear, yellow fluid was removed. MEDICAL HISTORY : Cardiovascular disease. Hypertension. Renal disease. SURGICAL HISTORY : None. ENCOUNTER: Initial ACUITY: 1 day PAIN SCORE: Non-responsive LOCATION: Right chest PROCEDURE: 1. CT guided right thoracentesis. The site was prepped in sterile fashion. Full sterile technique was used, including cap, mask, steri le gloves and gown and a large sterile sheet. Hand hygiene and 2% chlorhexidine and/or betadine/alco hol prep was utilized per protocol for cutaneous antisepsis. The skin and subcutaneous tissues were infiltrated with local anesthetic solution. Using automated exposure control and adjustment of the mA and/or kV according to patient size, radiation dose was kept as low as reasonably achievable to obta in optimal diagnostic quality images. With the patient supine on the CT table, new product trainer images were obtained through the chest demonstrating t he right sided pleural effusion. No left sided pleural effusion seen. Dermatotomy was made and the pr escribed catheter was advanced into the pleural fluid. The pleural fluid as above was removed from t he hemithorax. Post procedural scan show reduction in the amount of fluid with no evidence of pneumo thorax. The patient tolerated the procedure well and there were no complications. EKG and oximetry remained s table throughout the procedure. The patient was sent to recovery in stable condition. CONCLUSION: Uncomplicated CT-guided thoracentesis on the right. The left sided thoracentesis was not performed as there was no significant left pleural fluid. The abnormality on most recent chest x-ray was secondar y to mucous plugging and left sided atelectasis. Edgardo Mayorga MD on January 09, 2017 at 7:55 Board Certified Radiologist. This report was verified electronically.
[2017-01-09] MEDS: SENNOSIDES SYRUP 8.8 MG/5 ML CUP PO SCH (08:04)
[2017-01-09] MEDS: ASPIRIN 81 MG CHEW TAB PO SCH (08:04)
[2017-01-09] MEDS: DOCUSATE SODIUM 100 MG/10 ML UDC PO SCH ×2 (08:04→20:05)
[2017-01-09] MEDS: hydrALAZINE HCL 25 MG TAB PO SCH ×2 (08:04→20:06)
[2017-01-09] MEDS: SACUBITRIL/VALSARTAN 24 MG-26 MG TAB PO SCH ×2 (08:04→20:06)
[2017-01-09] MEDS: CHLORHEXIDINE 0.12% (ORAL KIT) 15 ML CUP MT SCH ×2 (08:05→20:07)
[2017-01-09] MEDS: SODIUM CHLORIDE 0.9% FLUSH 10 ML FLUSH IV FLUSH SCH ×2 (08:05→20:06)
[2017-01-09] MEDS: HYDROCHLOROTHIAZIDE 25 MG TAB PO SCH (08:06)
[2017-01-09] MEDS ORDERED: MIDAZOLAM HCL 5 MG/ML VIAL (1 ML) ONE (08:30)
[2017-01-09] MEDS ORDERED: CISATRACURIUM BESYLATE 20 MG/10 ML VIAL IV ONE (08:45)
--- NOTE | 2017-01-09 09:01 | RADRPT ---
EXAM DATE/TIME: 01/09/2017 08:18 [facility] COMPARISON: CHEST SINGLE AP, January 09, 2017, 6:23. US CHEST LEFT, January 07, 2017, 15:58. INDICATIONS : Shortness of breath. MEDICAL HISTORY : Myocardial infarction. Congestive heart failure. Hyperparathyroidism. Thyroid disease. HTN. Renal dis ease. Hydronephrosis. Dyspnea. SURGICAL HISTORY : Coronary artery stent. Cardiac cath. Parathyroid removal. ENCOUNTER: Subsequent ACUITY: 3 days PAIN SCORE: Nonresponsive. LOCATION: Left chest MEASUREMENTS: SKIN TO PARIETAL PLEURA: Inadequate fluid SKIN TO MAX SAFE DEPTH: Inadequate fluid ESTIMATED FLUID VOLUME: FLUID COMPOSITION: Inadequate fluid FINDINGS: No marking was performed. Fluid in the left chest is not seen. CONCLUSION: No left-sided pleural effusion. The abnormality in the left chest on chest radiograph is likely relat ed to mucous plugging. When patient had a CT scan yesterday the left lung was well aerated. Edgardo Mayorga MD on January 09, 2017 at 8:56 Board Certified Radiologist. This report was verified electronically.
[2017-01-09] MEDS: RESP: ACETYLCYSTEINE 10% 30 ML NEB NEB SCH ×3 (10:00→21:13)
--- NOTE | 2017-01-09 10:19 | RADRPT ---
EXAM DATE/TIME: 01/09/2017 09:15 [facility] COMPARISON: CT THORAX W/O CONTRAST, January 08, 2017, 8:46. US CHEST LEFT, January 09, 2017, 8:18. CHEST SINGLE AP, January 09, 2017, 6:23. INDICATIONS : Post bronchoscopy. MEDICAL HISTORY : Cardiovascular disease. Hypertension Renal disease. SURGICAL HISTORY : Thoracentesis. ENCOUNTER: Initial ACUITY: 1 day PAIN SCORE: Non-responsive. LOCATION: Bilateral chest FINDINGS: The left hemithorax remains completely opacified. The cardiomediastinal structures are shifted to the left. Endotracheal tube, nasogastric tube and right jugular central line remain in stable position. Increasing densities identified in the right lung base which may or present developing airspace disea se and effusion. CONCLUSION: Persistent complete opacification of the left hemithorax No evidence of pneumothorax. Increasing right basilar density suggesting increasing airspace disease and possible developing effus ion. Stable position of support devices. Theo Rodriguez MD on January 09, 2017 at 9:50 Board Certified Radiologist. This report was verified electronically.
[2017-01-09] MEDS: CEFEPIME INJ 2,000 MG in SODIUM CHLORIDE 0.9% INJ 100 ML IV SCH (12:19)
[2017-01-09] MEDS: AZITHROMYCIN INJ 500 MG in SODIUM CHLOR 0.9% 250 ML INJ 250 ML IV SCH (12:19)
--- NOTE | 2017-01-09 12:56 | HHI.CCPN ---
Subjective Remarks/Hospital Course This is a 71-year-old gentleman that presented to [facility] secondary to dyspnea and atrial fibrillation with RVR. The patient has a medical history significant for obesity and hypertension. During his hospitalization at [facility], the patient underwent an echocardiogram which showed severe systolic dysfunction with an ejection fraction of 1015 % the patient then underwent a cardiac catheterization showing significance with left circumflex 90%. The patient underwent multiple attempts of unsuccessful synchronized cardioversion. The patient also underwent medical management with beta blockers, and calcium channel blockers that were also unsuccessful. The patient was transferred to [facility] for cardiac ablation with Dr. Jimenez. The patient was scheduled for cardiac ablation, the procedure was canceled. The patient required emergent intubation and required ventilator management a VLADIMIR was performed showing a clot in the left atrial appendage. The patient was placed on IV Cardizem, and an amiodarone infusion. Critical Care medicine was consulted for management. Subjective: 01/06: Tmax 97.4. The patient remained on elevated vent settings with FiO2 of 1.0 overnight, PEEP requirements were increased to 8, to maintain a PaO2 of greater than [address] scan of the chest was obtained which noted bilateral effusions small, basilar consolidations right worse than the left, and a loculated area representing a possible pneumonia process, empyema, as well as aspiration or just loculated fluid as well as a small pericardial effusion. The patient continues on Cardizem and amiodarone infusions with a heart rate overnight 80s -115. The patient's vasopressor requirements of phenylephrine diminished to 20 mcgs. 01/07: Tmax 99.2. Yesterday the central line was placed for vasoactive medications and CVP monitoring, small hematoma noted near the right IJ area soft no compression of major vessels, with resolution of bleeding in that area. Phenylephrine was discontinued yesterday. The patient heart rate remains today [id number]. Cardizem infusion has been discontinued in the setting of EF of 10-15%. Esmolol infusion to be initiated this a.m.. Coumadin was initiated last night now placed on hold due to patient bleeding from nasopharynx and oropharynx. INR currently 1.2. Plan for CT thorax tomorrow, with possible IR intervention versus CVT consultation for possible empyema the patient will remain on heparin infusion, and transition onto Coumadin after any potential procedures to be initiated. Chest x-ray slightly improved FiO2 decreasing now 70%. Sedation vacation yesterday revealed GCS 11 T, patient alert responsive following commands. With initiation of antibiotics, leukocytosis resolved. ID consulted Dr. Gage. Blood cultures are pending. 01/08: Patient's heart rate 110-[address] scan of the chest imaging revealed fluid. Plan for thoracentesis and and studies of pleural fluid , this afternoon. The patient remains on amiodarone and heparin infusions, per cardiology. Heparin held, for thoracentesis this afternoon, and then will be resumed. The patient was maintained on CPAP trial for approximately one hour yesterday. During sedation vacation patient was alert following commands recognizing family. Plan to resume CPAP trials this afternoon post thoracentesis. 01/09: The patient underwent CT-guided thoracentesis yesterday , on the right side noted 400 cc of fluid was removed , with specimens ordered to be sent for evaluation .This morning chest x-ray performed showing almost complete opacification of the left lung. FiO2 requirements increase patient on FiO2 of 80%, O2 sat 94%. Left chest ultrasound obtained revealing no fluid. Consent obtained BAL performed, revealing emanating from the nearest previously ( patient was noted to have epistaxis with initiation of heparin on 01/06). Blood clots noted in left lung upon visualization with bronchoscopy, saline lavage applied, minimal blood clots removed. The patient was initiated on Mucomyst 10% , and pulmonology was consulted. Dr. Tasia Lama following. The patient shows no signs or evidence of bleeding actively, plan to consult ENT if signs of active bleeding become evident. Hemoglobin remains stable.The patient converted into sinus rhythm is today afternoon. Cardiology management of medications, IV amiodarone discontinued this afternoon. Objective Vital Signs Date Time Temp Pulse Resp B/P Pulse Ox O2 Delivery O2 Flow Rate FiO2 01/09/17 08:07 63 106/66 103/62 01/09/17 07:44 94 100 01/09/17 07:00 Mechanical Ventilator 01/09/17 07:00 98.0 20 01/05/17 13:54 15 Intake and Output 01/08/17 01/08/17 01/09/17 08:00 16:00 00:00 Intake Total 1082 ml 950 ml Output Total 855 ml 1300 ml Balance 227 ml -350 ml Result Diagram: 01/09/17 0530 01/09/17 0530 Other Results Laboratory Tests Test 01/09/17 05:55 Blood Gas Puncture Site ART LINE Blood Gas Patient Temperature 98.6 Blood Gas HCO3 34 mmol/L (22-26) Blood Gas Base Excess 10.0 mmol/L (-2-2) Blood Gas Oxygen Saturation 91 % (90-100) Arterial Blood pH 7.45 (7.380-7.420) Arterial Blood Partial 50 mmHg (38-42) Pressure CO2 Arterial Blood Partial 67 mmHg Pressure O2 (61-120) Arterial Blood Oxygen Content 13.0 Vol % (12.0-20.0) Arterial Blood 1.5 % (0-4) Carboxyhemoglobin Arterial Blood Methemoglobin 1.1 % (0-2) Blood Gas Hemoglobin 10.1 G/DL (12.0-16.0) Oxygen Delivery Device VENTILATOR Blood Gas Ventilator Setting PRVC/AC Blood Gas Inspired Oxygen 80 % Imaging Last Impressions Chest X-Ray 01/05/17 0000 Signed Impressions: Service Date/Time: Thursday, January 05, 2017 14:20 - CONCLUSION: Cardiomegaly with basilar pleuroparenchymal opacities. ET tube in satisfactory position. Daniel aCntu MD Chest CT 01/05/17 0000 Signed Impressions: Service Date/Time: Thursday, January 05, 2017 18:08 - CONCLUSION: 1. Panchamber enlargement of the heart. 2. Small pericardial effusion. 3. Coronary artery calcification. 4. Bilateral pleural effusions and basilar consolidation, right worse than left. Daniel Germain MD Objective Remarks GENERAL: Critically ill-appearing appropriately stated age, obese male sedated and intubated SKIN: Peripheral extremities cool and mottled. HEAD: Atraumatic. Normocephalic. EYES: Pupils equal and round, 3mm. No scleral icterus. No injection or drainage. ENT: No nasal bleeding or discharge. Mucous membranes pink and moist. Orotracheally intubated NECK: Trachea midline. Unable to assess JVD secondary to body habitus. Soft tissue swelling noted at RIJ site,no evidence expansion, area soft, color pink CARDIOVASCULAR: Regular rate and rhythm. Telemetry 78 RESPIRATORY: Mechanical ventilation. Clear to auscultation, diminished in bases. Breath sounds equal bilaterally. GASTROINTESTINAL: Abdomen soft, obese non-tender, nondistended. MUSCULOSKELETAL: Extremities without clubbing, cyanosis, or edema. No obvious deformities. NEUROLOGICAL: RASS -2. Intubated and sedated. Follows commands moving extremities 4, all sedation Procedures BAL, ultrasound left chest Urinary Catheter: Yes Date of Insertion: January 05, 2017 Vascular Central Line Catheter: Yes Date of Insertion: January 06, 2017 Line: Central Venous Catheter Side: Right Location: Internal, Jugular A/P Assessment and Plan A. fib with RVR-resolved Left atrial appendage thrombus Cardiomyopathy Systolic CHF Acute hypoxic respiratory failure Hypertension Renal insufficiency Obesity Probable aspiration Possible multilobar [id number] Bilateral pleural effusion Hypokalemia-resolved Leukocytosis-resolved Soft tissue hematoma right neck Left lung consolidation 2/2 previous event of epistaxis, clotted blood left lung SONU Neurologic: Propofol for sedation to maintain ventilator synchrony Neurochecks per ICU protocol GCS 11 T off sedation Respiratory: Maintain O2 sat greater than 92%, wean FiO2 Increasing O2 requirements currently FiO2 70% PEEP 8, will continue to decrease FiO2 to maintain a PaO2 of 60 or greater. Continue ARDS net protocol 01/05 CT chest-pericardial effusion small, bilateral effusions, basilar consolidation and right greater than left Continue diuresis-currently on Bumex 0.5 mg/hour per nephrology Bronchodilators schedule every 4 hours, every 2 hours when necessary Daily CPAP trials Solu-Medrol 40 mg every 6 hours Mucomyst 10% every 6 hours 3 days Pulmonology consultedDrMeng Lama-maintain PEEP10, keep patient on the right side, possible bronchoscopy in 2-3 days, S/P Mucomyst Patient to continue on heparin infusion, for possible interventions then transitioning to Coumadin per Cardiology Cardiovascular: Continue heparin infusion per cardiology Amiodarone infusion discontinued 01/09 Phenylephrine discontinued 01/06 Cardizem discontinued 01/07 01/05 VLADIMIR( Field Sales Representative)-left atrial thrombus 12/26 [facility] severe systolic dysfunction EF 1015%, mitral valve mild to moderate regurg, LAE, tricuspid Valve-mild to moderate regurg, small pericardial effusion, cardiac cath left circumflex 90% occlusion Maintain MAP greater than 65mmHg Management per Cardiology - Dr. Jimenez 01/05 BNP-596 Renal: Nephrology following-Dr. Hahn Currently on Bumex infusion 0.25mg/hour Creatinine 3.9 today, continue to monitor Urine output 2.5 L in the last 24 hours -- Strict I/Os FEN/GI: Tube feeds Nepro @40 cc Monitor BMP Bowel regimen Zofran for nausea Heme/ID: Monitor CBC. Hemoglobin stable No active signs of bleeding. Epistaxis resolved on 01/07 01/06 urine, sputum, blood cultures-NGTD 01/06-Legionella urine antigen negative Antibiotics per ID -Dr. Gage F/U cultures and specimen from BAL and thoracentesis Endocrine: Glucose monitoring per ICU protocol, medium dose regimen -- SSI Prophylaxis: GI Prophylaxis Pepcid twice a day DVT Prophylaxis -- SCDs Heparin infusion per cardiology Lines: Peripheral IV's. Right IJ 01/[address] Burch, Dr. Gage and COLLEGE TEACHER at bedside. Telephoned Mrs. Palmer and updated her on the patient's medical status. Dispo: This patient remains critically ill with one or more organ systems which are or may become a threat to life. I have spent in excess of 50 minutes discontinuously in the care and management of this patient. This time is exclusive of procedures, and includes, but is not limited to, evaluation of the patient, review of the medical record, discussions with family, consultants, nursing staff, or respiratory therapy, and documentation in the medical record. Physician Marianne Reilly MD January 09, 2017 12:56
--- NOTE | 2017-01-09 13:01 | PD.PROCEDR ---
Procedure Note Procedure Procedure: Fiberoptic Bronchoscopy Diagnosis: CHF, left atrial thrombus, respiratory insufficiency, pneumonia Indications: Hypoxia Consent: Obtained from Anesthesia: see MAR Description of the Procedure: The patient was sedated and mechanically ventilated. The patient was placed on 100% FIO2 and a volume control mode of ventilation. The fiberoptic bronchoscopy was inserted via 7.5 OETT. The trachea , right and left mainstem bronchi, and sub-segmental bronchi were evaluated. The endobronchial anatomy was normal. Findings: Old brown blood-streaked area from posterior ET tube down saturnino and into the lung , no active bleeding noted .Numerous blood clots, mucous plugs noted in left lung BAL samples: 2 The patient tolerated the procedure well with no hemodynamic instability or hypoxia. There were no immediate complications noted. At the conclusion of the procedure, the patient was placed back on their pre-procedure ventilatory settings. There was minimal EBL. A chest x-ray has been ordered. I personally performed the procedure. Marianne Foy MD January 09, 2017 13:01
--- NOTE | 2017-01-09 13:29 | HHI.IDPN ---
Subjective Subjective Remarks is a 71 y/o CM with PMHx of Morbid Obesity, HTN, SONU not on BiPAP, Afib with RVR. Patients reports they both had a cold recently and his was slightly worse and associated with significant cough and some low grade fever. He was driving from [place] to his 2nd home in [place] when he had worsening dyspnea and so presented to the [facility]. While at that hospital patient was noted to be in Afib with RVR. He underwent an ECHO which showed severe systolic dysfunction with EF 10-15%. He then underwent a cardiac cath at [facility] with left circumflex 90% blockage. The patient underwent multiple attempts of unsuccessful synchronized cardioversion. The patient also underwent medical management with beta blockers, and calcium channel blockers that were also unsuccessful. The patients reports he was treated with IV antibiotics and blood cultures were negative. The patient was transferred to [facility] for cardiac ablation with Dr. Jimenez. The patient was scheduled for cardiac ablation, the procedure was canceled as the patient required emergent intubation and required ventilator management. A VLADIMIR was performed showing a clot in the left atrial appendage. The patient was placed on IV Cardizem, and an amiodarone infusion. Critical Care medicine was consulted for management. ID was consulted for evaluation and Mment of leucocytosis, Pneumonia, possible empyema. Delayed entry. Overnight events reviewed. Underwent CT guided thoracentesis yday with 400 cc clear serous fluid. Unfortunately, lab and micro have not received any specimens. I personally called both departments. No fever No rash No diarrhea remains on vent. Had some fresh bleeding from nose. Also some fresh blood at penile meatus as reported by RN. KARLIE weems. Headed to IR for thoracentesis. Antibiotics Cefepime IV Azithro IV Lines Line sites with no e/o infection. Past Medical History reviewed Allergies: Coded Allergies: No Known Allergies (Unverified , 01/05/17) Pt stated he had No Known Allergies Objective . Vital Signs Date Time Temp Pulse Resp B/P Pulse Ox O2 Delivery O2 Flow Rate FiO2 01/09/17 12:51 93 90 01/09/17 08:45 95 100 01/09/17 08:07 63 106/66 103/62 01/09/17 07:44 94 100 01/09/17 07:00 92 Mechanical Ventilator 100 01/09/17 07:00 100 01/09/17 07:00 98.0 63 20 121/63 91 101/66 01/09/17 07:00 63 01/09/17 06:17 95 85 01/09/17 04:24 94 70 01/09/17 03:20 70 01/09/17 03:20 96 Mechanical Ventilator 70 01/09/17 03:20 98.8 71 16 108/64 97 131/64 01/09/17 03:20 68 01/09/17 00:57 97 70 01/08/17 23:24 98.4 74 15 106/68 97 138/67 01/08/17 23:24 97 Mechanical Ventilator 80 01/08/17 23:24 80 01/08/17 23:24 72 01/08/17 21:34 97 80 01/08/17 20:09 116/71 132/68 01/08/17 19:18 80 01/08/17 19:18 97 Mechanical Ventilator 80 01/08/17 19:18 98.6 75 14 116/51 97 132/68 01/08/17 19:00 74 01/08/17 17:02 92 80 01/08/17 17:02 100 100 01/08/17 17:00 80 01/08/17 17:00 75 01/08/17 17:00 98.7 75 15 112/70 95 118/54 01/08/17 17:00 95 Mechanical Ventilator 80 01/08/17 01/08/17 01/09/17 15:00 23:00 07:00 Intake Total 950 ml 2033 ml Output Total 1300 ml 1880 ml Balance -350 ml 153 ml IV Total 1305 ml Tube Feeding 600 ml 728 ml Tube Irrigant 350 ml Output Urine Total 1300 ml 1880 ml # Bowel Movements 0 0 . Laboratory Tests Test 01/08/17 01/08/17 01/09/17 04:45 10:10 05:30 White Blood Count 10.5 TH/MM3 11.2 TH/MM3 Red Blood Count 3.73 MIL/MM3 3.42 MIL/MM3 Hemoglobin 11.0 GM/DL 10.7 GM/DL 10.2 GM/DL Hematocrit 34.2 % 33.2 % 31.1 % Mean Corpuscular Volume 91.7 FL 90.8 FL Mean Corpuscular Hemoglobin 29.5 PG 29.8 PG Mean Corpuscular Hemoglobin 32.2 % 32.8 % Concent Red Cell Distribution Width 15.7 % 15.2 % Platelet Count 161 TH/MM3 161 TH/MM3 Mean Platelet Volume 9.8 FL 10.3 FL Laboratory Tests Test 01/08/17 01/09/17 04:45 05:30 Sodium Level 144 MEQ/L 146 MEQ/L Potassium Level 3.8 MEQ/L 3.6 MEQ/L Chloride Level 97 MEQ/L 98 MEQ/L Carbon Dioxide Level 37.7 MEQ/L 38.2 MEQ/L Anion Gap 9 MEQ/L 10 MEQ/L Blood Urea Nitrogen 103 MG/DL 120 MG/DL Creatinine 3.95 MG/DL 3.99 MG/DL Estimat Glomerular Filtration 15 ML/MIN 15 ML/MIN Rate Random Glucose 200 MG/DL 204 MG/DL Calcium Level 8.1 MG/DL 7.6 MG/DL Phosphorus Level 5.8 MG/DL 6.3 MG/DL Magnesium Level 2.4 MG/DL 2.6 MG/DL Total Bilirubin 0.4 MG/DL Direct Bilirubin 0.2 MG/DL Indirect Bilirubin 0.2 MG/DL Aspartate Amino Transf 36 U/L (AST/SGOT) Alanine Aminotransferase 35 U/L (ALT/SGPT) Alkaline Phosphatase 58 U/L C-Reactive Protein 9.10 MG/DL Total Protein 5.8 GM/DL Albumin 2.2 GM/DL Microbiology Date/Time Procedure Status Source Growth 01/06/17 18:33 Aerobic Blood Culture - Preliminary Resulted Blood Peripheral NO GROWTH IN 3 DAYS 01/06/17 18:33 Anaerobic Blood Culture - Preliminary Resulted Blood Peripheral NO GROWTH IN 3 DAYS 01/06/17 18:37 Aerobic Blood Culture - Preliminary Resulted Blood Peripheral NO GROWTH IN 3 DAYS 01/06/17 18:37 Anaerobic Blood Culture - Preliminary Resulted Blood Peripheral NO GROWTH IN 3 DAYS 01/07/17 14:10 Cancelled Nasal Washing 01/09/17 09:00 Cancelled Bronchial Washings Bronchial 01/09/17 09:00 Gram Stain Received Bronchial Washings Left Lower Lobe Pending 01/09/17 09:00 Bronchial Culture Received Bronchial Washings Left Lower Lobe Pending 01/09/17 09:00 Gram Stain Received Bronchial Washings Left Upper Lobe Pending 01/09/17 09:00 Bronchial Culture Received Bronchial Washings Left Upper Lobe Pending 01/09/17 09:00 Acid Fast Stain Received Bronchial Washings Left Lower Lobe Pending 01/09/17 09:00 Mycobacterial Culture Received Bronchial Washings Left Lower Lobe Pending 01/09/17 09:00 Acid Fast Stain Received Bronchial Washings Left Upper Lobe Pending 01/09/17 09:00 Mycobacterial Culture Received Bronchial Washings Left Upper Lobe Pending 01/09/17 09:00 Fungal Smear Received Bronchial Washings Left Lower Lobe Pending 01/09/17 09:00 Fungal Culture Received Bronchial Washings Left Lower Lobe Pending 01/09/17 09:00 Fungal Smear Received Bronchial Washings Left Upper Lobe Pending 01/09/17 09:00 Fungal Culture Received Bronchial Washings Left Upper Lobe Pending Imaging Last Impressions Chest CT 01/08/17 0600 Signed Impressions: Service Date/Time: Sunday, January 08, 2017 08:46 - CONCLUSION: Massive cardiomegaly with panchamber enlargement extensive coronary calcifications. Stable trace pericardial effusion. Increasing bibasilar consolidative changes with minimal bilateral pleural effusions.. Rhys Fritz MD FACR Chest X-Ray 01/08/17 0000 Signed Impressions: Service Date/Time: Sunday, January 08, 2017 10:26 - CONCLUSION: Increasing left pleural effusion when compared to study earlier the same day. Rhys Fritz MD FACR Chest Ultrasound 01/07/17 0000 Signed Impressions: Service Date/Time: Saturday, January 07, 2017 16:04 - CONCLUSION: 1. Small right pleural effusion noted with estimated volume of 78 cc. Amount insufficient for safe thoracentesis with patient in lateral decubitus position. Osmany Javed MD Physical Exam GENERAL: Obese, well-developed patient, in no apparent distress. SKIN: No rashes, ecchymoses or lesions. Cool and dry. HEAD: Atraumatic. Normocephalic. No temporal or scalp tenderness. EYES: Pupils equal round and reactive. Extraocular motions intact. No scleral icterus. No injection or drainage. ENT: Intubated. NECK: Trachea midline. Supple, nontender, no meningeal signs. Large neck. CARDIOVASCULAR: HS audible. Irregular HR. RESPIRATORY: Breath sounds equal bilaterally decreased in the bases. Left side remarkable decrease in breath sounds. GASTROINTESTINAL: Abdomen soft, non-tender, nondistended. MUSCULOSKELETAL: Extremities without clubbing, cyanosis, or edema. NEUROLOGICAL: Awake and alert. Grossly non focal Psych: cooperative IV line sites with no e.o infection. Assessment & Plan Remarks Pneumonia: ? Viral followed by Secondary bacterial pneumonia, Atypical pneumonia. Possible Empyema. Afib with RVR: infection as precipitant. Ischemic Cardiomyopathy EF 10-15% SONU not on BiPAP. Acute renal failure: sepsis, contrast, meds. Hyperglycemia ? DM, ? stress Acute resp failure on vent. Recs: continue Cefepime IV Continue Azithro IV Will follow clinically Will follow cultures D/w : if ongoing fresh uncontrolled nasal bleed consider ENT consult. D/w : may need additional bronchoscopy as continues to have nasal bleed related old clots. case d.w patients in room explained above plan Case d.w bedside RN. Gema Gage MD January 09, 2017 13:29
[2017-01-09 13:33] LABS: BLOOD GAS BASE EXCESS 9.5 mmol/L (-2-2); BLOOD GAS CARBOXYHEMOGLOBIN 1.4 % (0-4); BLOOD GAS HCO3 34 mmol/L (22-26); BLOOD GAS METHEMOGLOBIN 1.3 % (0-2); BLOOD GAS O2 HGB SATURATION 92 % (90-100); BLOOD GAS OXYGEN CONTENT 13.1 Vol % (12.0-20.0); BLOOD GAS PCO2 50 mmHg (38-42); BLOOD GAS PO2 75 mmHg (61-120); BLOOD GAS TOTAL HGB 10.1 G/DL (12.0-16.0); CRITICAL VALUE NO; OXYGEN DEVICE VENTILATOR; TEMP CORR TO 98.6
[2017-01-09 13:34] LABS: DRAW SITE ART LINE; FIO2 90 %; STAT NO; VENT SETTINGS 14/500/PEEP10
--- NOTE | 2017-01-09 13:36 | HHI.NPPN ---
Subjective General Problems: Anemia, Edema, Heart Disease Renal Failure: Acute History of Present Illness 71-year-old the white male the who is transferred from [facility] to [facility] due to atrial fibrillation with fast ventricular response, he was in the heart catheterization lab and became unstable has to intubated the patient has chronic kidney disease, Cardiomyopathy ejection fraction of only 15% and has severe dilated cardiomyopathy with the clot in left atrium he is on heparin drip and currently on ventilator. Additional Remarks Patient remain on the vent. and sedated, clinically same, intubated Bronchoscopy/Thoracentesis done Objective Data Data 01/08/17 01/09/17 19:00 07:00 Intake Total 2983 ml Output Total 3180 ml Balance -197 ml IV Total 1305 ml Tube Feeding 1328 ml Tube Irrigant 350 ml Output Urine Total 3180 ml # Bowel Movements 0 Vital Signs Date Time Temp Pulse Resp B/P Pulse Ox O2 Delivery O2 Flow Rate FiO2 01/09/17 12:51 93 90 01/09/17 11:00 97.8 52 19 101/52 94 108/55 01/09/17 11:00 94 Mechanical Ventilator 100 01/09/17 11:00 100 01/09/17 11:00 52 01/09/17 08:45 95 100 01/09/17 08:07 63 106/66 103/62 01/09/17 07:44 94 100 01/09/17 07:00 92 Mechanical Ventilator 100 01/09/17 07:00 100 01/09/17 07:00 98.0 63 20 121/63 91 101/66 01/09/17 07:00 63 01/09/17 06:17 95 85 01/09/17 04:24 94 70 01/09/17 03:20 70 01/09/17 03:20 96 Mechanical Ventilator 70 01/09/17 03:20 98.8 71 16 108/64 97 131/64 01/09/17 03:20 68 01/09/17 00:57 97 70 01/08/17 23:24 98.4 74 15 106/68 97 138/67 01/08/17 23:24 97 Mechanical Ventilator 80 01/08/17 23:24 80 01/08/17 23:24 72 01/08/17 21:34 97 80 01/08/17 20:09 116/71 132/68 01/08/17 19:18 80 01/08/17 19:18 97 Mechanical Ventilator 80 01/08/17 19:18 98.6 75 14 116/51 97 132/68 01/08/17 19:00 74 01/08/17 17:02 92 80 01/08/17 17:02 100 100 01/08/17 17:00 80 01/08/17 17:00 75 01/08/17 17:00 98.7 75 15 112/70 95 118/54 01/08/17 17:00 95 Mechanical Ventilator 80 -: 01/09/17 0530 01/09/17 0530 Microbiology 01/09/17 Gram Stain, Received Pending 01/09/17 Bronchial Culture, Received Pending 01/09/17 Gram Stain, Received Pending 01/09/17 Bronchial Culture, Received Pending 01/09/17 Acid Fast Stain, Received Pending 01/09/17 Mycobacterial Culture, Received Pending 01/09/17 Acid Fast Stain, Received Pending 01/09/17 Mycobacterial Culture, Received Pending 01/09/17 Fungal Smear, Received Pending 01/09/17 Fungal Culture, Received Pending 01/09/17 Fungal Smear, Received Pending 01/09/17 Fungal Culture, Received Pending Physical Exam Eyes Eye Exam: Pupils Equal Throat Throat Exam: Oral Mucosa Shaft & Moist Pulmonary Resp Exam: Crackles, Rhonchi, Decreased Bases, Diminished Breath Sounds Cardiology CV Exam: Regular, Normal Sinus Rhythm Gastrointestinal/Abdomen GI Exam: Soft, Non-Tender, Distended Extremeties Extremities Exam: Moderate Edema, Pitting Edema, Dependent Edema Neurologic Neuro Exam: Sedated Assessment/Plan Problem List: (1) Acute renal failure Plan: Patient is now on Bumex drip, urine out put is good. He has poor ejection fraction and is intubated Severe cardiomyopathy prognosis is guarded. Creatinine increasing. UOP 3.18 L d/w Dr. Foy he had Blood clots stuck in lungs tried to remove with Bronchoscopy Pulmonary following dc bumex drip at 1 cc/hr as BUN 120 Cr 3.99 may use intermittent diuretics (2) CKD (chronic kidney disease) stage 4, GFR 15-29 ml/min Plan: Has high creatinine kidney ultrasound ordered (3) CHF (congestive heart failure) Plan: Severe cardiomyopathy EF 10-15% (4) Atrial fibrillation with rapid ventricular response Plan: Has a blood clot in LA appendage Problem Qualifiers (1) CHF (congestive heart failure): Christa Hahn MD January 09, 2017 13:36
--- NOTE | 2017-01-09 14:45 | ETE ---
Study Study Date:01/05/2017 STUDY CONCLUSIONS SUMMARY - Left ventricle: The cavity size was normal. Wall thickness was normal. Systolic function was severely reduced. The estimated ejection fraction was in the range of 15% to 20%. Diffuse hypokinesis. - Aortic valve: No evidence of vegetation. - Mitral valve: No evidence of vegetation. Mild regurgitation. - Left atrium: The atrium was dilated. No evidence of thrombus in the atrial cavity or appendage. There was an apparent thrombus in the left atrial appendage. There was a thrombus. The appendage was morphologically a left appendage, multilobulated, and of normal size. Emptying velocity was moderately reduced. - Right atrium: No evidence of thrombus in the atrial cavity or appendage. - Atrial septum: No defect or patent foramen ovale was identified. Echo contrast study showed no [id number] atrial level shunt, at baseline or with provocation. - Tricuspid valve: No evidence of vegetation. Mild regurgitation. - Pulmonic valve: No evidence of vegetation. If LV function is below 40, please consider prescribing an ACEI or ARB or document rationale for non-use. PROCEDURE DATA Consent: The risks, benefits, and alternatives to the procedure were explained to the patient and informed consent was obtained. Procedure: Initial setup. The patient was brought to the laboratory in the fasting state. Intravenous access was obtained. Surface ECG leads and pulse oximetric signals were monitored. Sedation. Conscious sedation was administered by anesthesiology. Transesophageal echocardiography. Topical anesthesia was obtained using viscous lidocaine. A transesophageal probe was inserted by the attending research pharmacist. Image quality was good. Study completion: All IVs inserted during the procedure were removed. The patient tolerated the procedure well. There were no complications. Transesophageal echocardiography. 2D, complete spectral Doppler, and color Doppler. CARDIAC ANATOMY LEFT VENTRICLE: The cavity size was normal. Wall thickness was normal. Systolic function was severely reduced. The estimated ejection fraction was in the range of 15% to 20%. Diffuse hypokinesis. AORTIC VALVE: Trileaflet; mildly thickened, mildly calcified leaflets. Cusp separation was normal. No evidence of vegetation. Doppler: No significant regurgitation. Aorta: - There was no atheroma. There was no evidence for dissection. Aortic root: The aortic root was not dilated. Ascending aorta: The ascending aorta was normal in size. Aortic arch: The aortic arch was normal in size. Descending aorta: The descending aorta was normal in size. MITRAL VALVE: Structurally normal valve. Leaflet separation was normal. No evidence of vegetation. Doppler: Mild regurgitation. LEFT ATRIUM: The atrium was dilated. No evidence of thrombus in the atrial cavity or appendage. There was an apparent thrombus in the left atrial appendage. There was a thrombus. The appendage was morphologically a left appendage, multilobulated, and of normal size. Emptying velocity was moderately reduced. ATRIAL SEPTUM: No defect or patent foramen ovale was identified. Echo contrast study showed no [id number] atrial level shunt, at baseline or with provocation. RIGHT VENTRICLE: The cavity size was normal. Wall thickness was normal. Systolic function was normal. PULMONIC VALVE: Structurally normal valve. No evidence of vegetation. TRICUSPID VALVE: Structurally normal valve. Leaflet separation was normal. No evidence of vegetation. Doppler: Mild regurgitation. PULMONARY ARTERY: The main pulmonary artery was normal-sized. RIGHT ATRIUM: The atrium was normal in size. No evidence of thrombus in the atrial cavity or appendage. The appendage was morphologically a right appendage. PERICARDIUM: There was no pericardial effusion. Prepared and signed by Narcisa Jimenez [id number]
--- NOTE | 2017-01-09 17:25 | RADRPT ---
EXAM DATE/TIME: 01/09/2017 13:56 [facility] COMPARISON: CT GUIDED THORACENTESIS RIGHT, January 08, 2017, 16:08. INDICATIONS : Abnormal labs. MEDICAL HISTORY : Hypertension. A. Fib. Ventilated. Thyroid disease. Dyspnea. Hydronephrosis. SURGICAL HISTORY : Right thoracentesis. Cardiac catheterization. Cardiac stent placements. Parathyroid removal. ENCOUNTER: Initial ACUITY: 1 day PAIN SCORE: Nonresponsive. LOCATION: Bilateral flank MEASUREMENTS: RIGHT KIDNEY: 13.9 x 5.1 x 6.6 cm LEFT KIDNEY: 12.3 x 4.5 x 4.5 cm FINDINGS: RIGHT KIDNEY: Renal cortex is normal in thickness and echotexture. No hydronephrosis, stone, or mass. LEFT KIDNEY: Renal cortex is normal in thickness and echotexture. No hydronephrosis. 2.4 x 1.5 cm medial cortical cyst. At least 2, subcentimeter echogenic, non-shadowing foci are seen in the midpole region of the l eft kidney which may represent ectopic hilar fat. BLADDER: Decompressed with a Alanis catheter. CONCLUSION: 1. Right kidney is sonographically normal. 2. Benign-appearing 2.4 x 1.5 cm cortical cyst in the midpole of the left kidney. 3. Subcentimeter echogenic, non-shadowing foci in the midpole of the left kidney would be unusual for stones and may represent ectopic hilar fat. No hydronephrosis. 4. Urinary bladder is decompressed with a Alanis catheter. Douglas Ward MD on January 09, 2017 at 17:18 Board Certified Radiologist. This report was verified electronically.
[2017-01-09] MEDS ORDERED: CARVEDILOL 6.25 MG TAB PO SCH (20:00)
[2017-01-09] MEDS: RESP: ALBUTEROL 2.5 MG/IPRATROPIUM 0.5 MG NEB (PRN) NEB (21:13)
--- NOTE | 2017-01-09 21:50 | MB ---
cc: CORINA NARVAEZ DATE OF CONSULTATION 01/09/2017 REASON FOR CONSULTATION Respiratory failure and atelectasis left lung. HISTORY OF THE PRESENT ILLNESS This a 71-year-old obese, white male who was transferred from [facility] with shortness of breath and atrial fibrillation. Has been in respiratory failure since his admission here on 01/04. The patient apparently had severe systolic dysfunction with an ejection fraction of 15% and had undergone a cardiac catheterization with occlusion of the left circumflex of about 90%. Apparently was continued on medical management but was transferred to [facility] for cardiac ablation to be done by Dr. Jimenez. The patient had to be intubated emergently after he was admitted to [facility] and the ablation procedure had to be cancelled. Since admission the patient also apparently had some nasal bleeding and he had aspirated some of the blood from the nose as well as the oropharynx. A chest x-ray showed evidence of atelectasis of the left lung and also a large pleural effusion. The patient had been on heparin infusion and his Coumadin was on hold. A thoracentesis done from the right chest revealed 400 cc of fluid but this has not been analyzed for cytology or cultures. The patient, however, had to remain on ventilator support and his left chest was opacified and he thus underwent a bronchoscopy with suctioning of clots and thick secretions. The patient had remained on over 90% FIO2 and on ventilator support with a PEEP of 10. His repeat chest x-ray done today still shows significant opacity in the left lung field but no significant effusion has been noted and it appears to be mostly atelectasis. The patient is sedated presently and no further information can be obtained except from the chart. PAST MEDICAL AND SURGICAL HISTORY The patient's past history as mentioned before is significant for: 1. Coronary artery disease. 2. Cardiomyopathy. 3. History of atrial fibrillation. 4. Hypertension. There is no significant surgical history in the past. MEDICATIONS List includes: 1. Coreg 25 mg daily. 2. Hydrochlorothiazide 25 mg a day. 3. Hydralazine 25 milligrams twice a day. SOCIAL HISTORY Habits, the patient smoked one-pack per day for over 10 years. No significant alcohol use. Recently retired. FAMILY HISTORY Unavailable. REVIEW OF SYSTEMS Patient on ventilator support. PHYSICAL EXAMINATION GENERAL: This is an obese, elderly man who is intubated, sedated, assisting the ventilator. VITAL SIGNS: His blood pressure 120/60, pulse is 112, respiratory rate 24, temperature is 98. HEENT: Head is normocephalic. Pupils are sluggishly reactive. Throat is clear. There are few bloody secretions in the back. NECK: Supple with mild venous distention. Trachea is midline. CHEST: Decreased breath sounds over the left base with occasional crackles in both lung bases. HEART: The heart sounds are irregular S1-S2. No murmur. ABDOMEN: Soft. Obese without masses. No organomegaly. EXTREMITIES: Mild edema. Decreased peripheral pulses. Reflexes are not elicited. The patient is sedated. SKIN: Dry and cool. IMPRESSION 1. Hypoxic respiratory failure. 2. Left lower lobe atelectasis and possible pneumonia with aspiration. 3. Left pleural effusion resolved. 4. Cardiomyopathy and congestive heart failure. 5. Obstructive sleep apnea. 6. Diabetes mellitus. 7. Atrial fibrillation. PLAN The patient is going to be maintained on ventilator support. We will use Mucomyst 20% solution, 2 cc q.i.d. with DuoNeb solution to clear some of the thick mucous plugs and secretions as well as blood clots. A bronchoscopy will be scheduled when he is clinically stable. Repeat chest x-ray has been planned. We will also continue with antibiotic coverage per infectious disease service. The patient will be placed on IV Solu-Medrol [address] Gage for this consultation. MD JOSESITO Azul/CHARLENE /5:57 PM /9:32 PM ERNESTINA
[2017-01-10] VITALS (14 sets, daily range): BP systolic 104–135; BP diastolic 54–70; PULSE 108–125; RESP 16–19; TEMP 98.3–99; O2SAT 92–96
[2017-01-10] MEDS: methylPREDNISolone SOD SUCC 40 MG/1 ML VIAL IV PUSH SCH ×4 (02:12→20:50)
[2017-01-10] MEDS ORDERED: TERBUTALINE INJ 1 MG/ML AMP SQ PRN (02:30)
[2017-01-10] MEDS: PROPOFOL 1000 MG/100 ML IV SCH ×6 (03:25→21:13)
[2017-01-10] MEDS ORDERED: PHENYLEPHRINE INJ 40 MG in DEXTROSE 5% IN WATE 500 ML INJ 496 ML IV SCH ×2 (03:30)
[2017-01-10] MEDS: CHLORHEXIDINE GLUCONATE 2 % 1 PACK (2 CLOTHS) TOP SCH (04:00)
[2017-01-10] MEDS: RESP: ALBUTEROL 2.5 MG/IPRATROPIUM 0.5 MG NEB (PRN) NEB ×4 (04:28→22:02)
[2017-01-10] MEDS: RESP: ACETYLCYSTEINE 10% 30 ML NEB NEB SCH ×4 (04:28→22:02)
[2017-01-10] MEDS: FAMOTIDINE 20 MG/2 ML VIAL IV PUSH SCH ×2 (04:49→16:34)
[2017-01-10 05:06] LABS: BASOPHIL % 0.1 % (0.0-2.0); HEMATOCRIT 33.4 % (39.0-51.0); HEMO FLAGS DIFF FINAL; LYMPH % 2.1 % (9.0-44.0); LYMPHOCYTE # 0.3 TH/MM3 (1.0-4.8); MEAN CELL VOLUME 91.6 FL (80.0-100.0); MEAN CORPUSCULAR HEMOGLOBIN 29.3 PG (27.0-34.0); MONO % 5.4 % (0.0-8.0); NEUT % 92.4 % (16.0-70.0); PLATELET COUNT 209 TH/MM3 (150-450); RED BLOOD COUNT 3.64 MIL/MM3 (4.50-5.90); RED CELL DISTRIBUTION WIDTH 15.7 % (11.6-17.2)
[2017-01-10 05:16] LABS: APTT (PATIENT) 64.6 SEC (24.3-30.1)
[2017-01-10 05:31] LABS: BICARBONATE 38.1 MEQ/L (21.0-32.0); POTASSIUM 3.7 MEQ/L (3.5-5.1)
[2017-01-10] MEDS: INSULIN ASPART SUPPLEMENTAL SCALE SQ SCH ×3 (05:45→17:16)
[2017-01-10 07:37] LABS: BLOOD GAS BASE EXCESS 9.8 mmol/L (-2-2); BLOOD GAS CARBOXYHEMOGLOBIN 1.4 % (0-4); BLOOD GAS HCO3 34 mmol/L (22-26); BLOOD GAS METHEMOGLOBIN 1.3 % (0-2); BLOOD GAS O2 HGB SATURATION 92 % (90-100); BLOOD GAS OXYGEN CONTENT 13.6 Vol % (12.0-20.0); BLOOD GAS PCO2 52 mmHg (38-42); BLOOD GAS PO2 78 mmHg (61-120); BLOOD GAS TOTAL HGB 10.4 G/DL (12.0-16.0); TEMP CORR TO 98.6
[2017-01-10 07:39] LABS: CRITICAL VALUE YES; OXYGEN DEVICE VENTILATOR
[2017-01-10 07:40] LABS: DRAW SITE ART LINE; FIO2 80 %; STAT NO; VENT SETTINGS RPVC14/0.9IT/10PEEP
--- NOTE | 2017-01-10 08:24 | RADRPT ---
EXAM DATE/TIME: 01/10/2017 07:08 [facility] COMPARISON: CHEST SINGLE AP, January 09, 2017, 9:15. INDICATIONS : Respiratory failure. MEDICAL HISTORY : Hypertension. A. Fib. Ventilated. Thyroid disease. Dyspnea. Hydronephrosis. SURGICAL HISTORY : Right thoracentesis. Cardiac catheterization. Cardiac stent placements. Parathyroid removal. ENCOUNTER: Subsequent ACUITY: 4 - 6 days PAIN SCORE: Non-responsive. LOCATION: Chest FINDINGS: An endotracheal tube has its tip in good position 3 cm above the saturnino. A nasogastric tube has its tip in the stomach. The heart is enlarged. There is increased aeration of the left lung compared to the previous examination. Mild pulmonary vascular congestion is still present. Small bilateral ple ural effusions are also noted. A right internal jugular central line is noted in the superior vena c arthur. There is no pneumothorax. CONCLUSION: 1. Increased aeration of the left lung compared to the previous days examination. 2. Mild residual pulmonary vascular congestion bilaterally. 3. Small bilateral pleural effusions. 4. Cardiomegaly. 5. No evidence of pneumothorax. Rickey Mccarthy MD on January 10, 2017 at 7:39 Board Certified Radiologist. This report was verified electronically.
[2017-01-10] MEDS: CHLORHEXIDINE 0.12% (ORAL KIT) 15 ML CUP MT SCH ×2 (08:29→20:00)
[2017-01-10] MEDS: hydrALAZINE HCL 25 MG TAB PO SCH ×3 (08:34→21:00)
[2017-01-10] MEDS: SODIUM CHLORIDE 0.9% FLUSH 10 ML FLUSH IV FLUSH SCH ×2 (08:34→20:50)
[2017-01-10] MEDS: DOCUSATE SODIUM 100 MG/10 ML UDC PO SCH ×2 (08:34→20:49)
[2017-01-10] MEDS: ASPIRIN 81 MG CHEW TAB PO SCH (08:34)
[2017-01-10] MEDS: SENNOSIDES SYRUP 8.8 MG/5 ML CUP PO SCH (08:34)
[2017-01-10] MEDS: SACUBITRIL/VALSARTAN 24 MG-26 MG TAB PO SCH ×3 (08:35→21:00)
[2017-01-10] MEDS: HYDROCHLOROTHIAZIDE 25 MG TAB PO SCH (08:35)
--- NOTE | 2017-01-10 08:50 | HHI.CCPN ---
Subjective Remarks/Hospital Course This is a 71-year-old gentleman that presented to [facility] secondary to dyspnea and atrial fibrillation with RVR. The patient has a medical history significant for obesity and hypertension. During his hospitalization at [facility], the patient underwent an echocardiogram which showed severe systolic dysfunction with an ejection fraction of 1015 % the patient then underwent a cardiac catheterization showing significance with left circumflex 90%. The patient underwent multiple attempts of unsuccessful synchronized cardioversion. The patient also underwent medical management with beta blockers, and calcium channel blockers that were also unsuccessful. The patient was transferred to [facility] for cardiac ablation with Dr. Jimenez. The patient was scheduled for cardiac ablation, the procedure was canceled. The patient required emergent intubation and required ventilator management a VLADIMIR was performed showing a clot in the left atrial appendage. The patient was placed on IV Cardizem, and an amiodarone infusion. Critical Care medicine was consulted for management. Subjective: 01/06: Tmax 97.4. The patient remained on elevated vent settings with FiO2 of 1.0 overnight, PEEP requirements were increased to 8, to maintain a PaO2 of greater than [address] scan of the chest was obtained which noted bilateral effusions small, basilar consolidations right worse than the left, and a loculated area representing a possible pneumonia process, empyema, as well as aspiration or just loculated fluid as well as a small pericardial effusion. The patient continues on Cardizem and amiodarone infusions with a heart rate overnight 80s -115. The patient's vasopressor requirements of phenylephrine diminished to 20 mcgs. 01/07: Tmax 99.2. Yesterday the central line was placed for vasoactive medications and CVP monitoring, small hematoma noted near the right IJ area soft no compression of major vessels, with resolution of bleeding in that area. Phenylephrine was discontinued yesterday. The patient heart rate remains today [id number]. Cardizem infusion has been discontinued in the setting of EF of 10-15%. Esmolol infusion to be initiated this a.m.. Coumadin was initiated last night now placed on hold due to patient bleeding from nasopharynx and oropharynx. INR currently 1.2. Plan for CT thorax tomorrow, with possible IR intervention versus CVT consultation for possible empyema the patient will remain on heparin infusion, and transition onto Coumadin after any potential procedures to be initiated. Chest x-ray slightly improved FiO2 decreasing now 70%. Sedation vacation yesterday revealed GCS 11 T, patient alert responsive following commands. With initiation of antibiotics, leukocytosis resolved. ID consulted Dr. Gage. Blood cultures are pending. 01/08: Patient's heart rate 110-[address] scan of the chest imaging revealed fluid. Plan for thoracentesis and and studies of pleural fluid , this afternoon. The patient remains on amiodarone and heparin infusions, per cardiology. Heparin held, for thoracentesis this afternoon, and then will be resumed. The patient was maintained on CPAP trial for approximately one hour yesterday. During sedation vacation patient was alert following commands recognizing family. Plan to resume CPAP trials this afternoon post thoracentesis. 01/09: The patient underwent CT-guided thoracentesis yesterday , on the right side noted 400 cc of fluid was removed , with specimens ordered to be sent for evaluation .This morning chest x-ray performed showing almost complete opacification of the left lung. FiO2 requirements increase patient on FiO2 of 80%, O2 sat 94%. Left chest ultrasound obtained revealing no fluid. Consent obtained BAL performed, revealing emanating from the nearest previously ( patient was noted to have epistaxis with initiation of heparin on 01/06). Blood clots noted in left lung upon visualization with bronchoscopy, saline lavage applied, minimal blood clots removed. The patient was initiated on Mucomyst 10% , and pulmonology was consulted. Dr. Tasia Lama following. The patient shows no signs or evidence of bleeding actively, plan to consult ENT if signs of active bleeding become evident. Hemoglobin remains stable.The patient converted into sinus rhythm is today afternoon. Cardiology management of medications, IV amiodarone discontinued this afternoon. 01/10: Tmax 99.0. Chest x-ray shows slight improvement of left lung today. Plan for repeat bronchoscopy per Dr. Burch this a.m, and the patient continues on Mucomyst. The patient's cardiac rhythm reverted to A. fib last evening, amiodarone IV infusion reinstituted per Dr. Jimenez. Objective Vital Signs Date Time Temp Pulse Resp B/P Pulse Ox O2 Delivery O2 Flow Rate FiO2 01/10/17 08:09 94 80 01/10/17 08:00 Mechanical Ventilator 01/10/17 08:00 99.0 125 16 113/70 104/55 Intake and Output 01/09/17 01/09/17 01/10/17 08:00 16:00 00:00 Intake Total 2033 ml 1533 ml Output Total 1880 ml 2025 ml Balance 153 ml -492 ml Result Diagram: 01/10/17 0436 01/10/17 0436 Other Results Laboratory Tests Test 01/09/17 01/10/17 13:17 07:22 Blood Gas Puncture Site ART LINE ART LINE Blood Gas Patient Temperature 98.6 98.6 Blood Gas HCO3 34 mmol/L 34 mmol/L (22-26) (22-26) Blood Gas Base Excess 9.5 mmol/L 9.8 mmol/L (-2-2) (-2-2) Blood Gas Oxygen Saturation 92 % (90-100) 92 % (90-100) Arterial Blood pH 7.45 7.44 (7.380-7.420) (7.380-7.420) Arterial Blood Partial 50 mmHg (38-42) 52 mmHg (38-42) Pressure CO2 Arterial Blood Partial 75 mmHg 78 mmHg Pressure O2 (61-120) (61-120) Arterial Blood Oxygen Content 13.1 Vol % 13.6 Vol % (12.0-20.0) (12.0-20.0) Arterial Blood 1.4 % (0-4) 1.4 % (0-4) Carboxyhemoglobin Arterial Blood Methemoglobin 1.3 % (0-2) 1.3 % (0-2) Blood Gas Hemoglobin 10.1 G/DL 10.4 G/DL (12.0-16.0) (12.0-16.0) Oxygen Delivery Device VENTILATOR VENTILATOR Blood Gas Ventilator Setting 14/500/PEEP10 RPVC14/0.9IT/10PEEP Blood Gas Inspired Oxygen 90 % 80 % Imaging Last Impressions Chest X-Ray 01/05/17 0000 Signed Impressions: Service Date/Time: Thursday, January 05, 2017 14:20 - CONCLUSION: Cardiomegaly with basilar pleuroparenchymal opacities. ET tube in satisfactory position. Daniel Cantu MD Chest CT 01/05/17 0000 Signed Impressions: Service Date/Time: Thursday, January 05, 2017 18:08 - CONCLUSION: 1. Panchamber enlargement of the heart. 2. Small pericardial effusion. 3. Coronary artery calcification. 4. Bilateral pleural effusions and basilar consolidation, right worse than left. Daniel Germain MD Objective Remarks GENERAL: Critically ill-appearing appropriately stated age, obese male sedated and intubated SKIN: Peripheral extremities cool and mottled. HEAD: Atraumatic. Normocephalic. EYES: Pupils equal and round, 3mm. No scleral icterus. No injection or drainage. ENT: No nasal bleeding or discharge. Mucous membranes pink and moist. Orotracheally intubated NECK: Trachea midline. Unable to assess JVD secondary to body habitus. Soft tissue swelling noted at RIJ site, diminishing, area soft, color pink CARDIOVASCULAR: Irregular rate and rhythm. Telemetry 114 RESPIRATORY: Mechanical ventilation. Clear to auscultation, distant, fine rales in bases. Breath sounds equal bilaterally. GASTROINTESTINAL: Abdomen soft, obese non-tender, nondistended. MUSCULOSKELETAL: Extremities without clubbing, cyanosis, or edema. No obvious deformities. NEUROLOGICAL: RASS -2. Intubated and sedated. Follows commands moving extremities 4, off sedation Procedures Fiberoptic bronchoscopy per Dr. Burch Date of Insertion: January 05, 2017 Date of Insertion: January 06, 2017 Line: Central Venous Catheter Side: Right Location: Internal, Jugular A/P Assessment and Plan A. fib with RVR Left atrial appendage thrombus Cardiomyopathy Systolic CHF Acute hypoxic respiratory failure Hypertension Renal insufficiency Obesity Probable aspiration Possible multilobar [id number] Bilateral pleural effusion Hypokalemia-resolved Leukocytosis-resolved Soft tissue hematoma right neck Left lung consolidation 2/2 previous event of epistaxis, clotted blood left lung SONU Neurologic: Propofol for sedation to maintain ventilator synchrony Neurochecks per ICU protocol GCS 11 T off sedation Respiratory: Maintain O2 sat greater than 92%, wean FiO2 Increasing O2 requirements currently FiO2 70% PEEP 8, will continue to decrease FiO2 to maintain a PaO2 of 60 or greater. Continue ARDS net protocol 01/05 CT chest-pericardial effusion small, bilateral effusions, basilar consolidation and right greater than left Continue diuresis-currently on Bumex 0.5 mg/hour per nephrology Bronchodilators schedule every 4 hours, every 2 hours when necessary Daily CPAP trials Solu-Medrol 40 mg every 12 hours-per pulmonology Mucomyst 10% increase to 20% per pulmonology Pulmonology consultedDr. Darling Lama-maintain PEEP10, keep patient on the right side, possible bronchoscopy in 2-3 days, S/P Mucomyst Patient to continue on heparin infusion, for possible interventions then transitioning to Coumadin per Cardiology 01/08-right CT-guided thoracentesis-400 cc removed, sent for cytology and cultures 01/09 Fiberoptic bronchoscopy with BAL 01/10-bronchoscopy scheduled- Dr. Burch Cardiovascular: Continue heparin infusion per cardiology Amiodarone infusion discontinued 01/09-resumed 01/10 Phenylephrine discontinued 01/06-resumed 01/10 Cardizem discontinued 01/07 01/05 VLADIMIR( Pharmaceutical Engineer)-left atrial thrombus 12/26 [facility] severe systolic dysfunction EF 1015%, mitral valve mild to moderate regurg, LAE, tricuspid Valve-mild to moderate regurg, small pericardial effusion, cardiac cath left circumflex 90% occlusion Maintain MAP greater than 65mmHg Management per Cardiology - Dr. Jimenez 01/05 BNP-596 Renal: Nephrology following-Dr. Hahn Bumex infusion 0.25mg/hour is continued 01/09 Follow-up kidney ultrasound Creatinine 3.9-> 3.6 today, continue to monitor Urine output 2.5 L in the last 24 hours -- Strict I/Os FEN/GI: Tube feeds Nepro @40 cc Monitor BMP Bowel regimen-add MiraLAX, and docusate suppository Zofran for nausea Heme/ID: Monitor CBC. Hemoglobin stable No active signs of bleeding. Epistaxis resolved on 01/07 01/06 urine, sputum, blood cultures-NGTD 01/06-Legionella urine antigen negative Antibiotics per ID -Dr. Gage F/U cultures and specimen from BAL and thoracentesis Endocrine: Glucose monitoring per ICU protocol, medium dose regimen -- SSI Prophylaxis: GI Prophylaxis Pepcid twice a day DVT Prophylaxis -- SCDs Heparin infusion per cardiology Lines: Peripheral IV's. Right IJ 01/06 Discussed GLOBAL POSITION SYSTEM TECHNICIAN at bedside. Dispo: This patient remains critically ill with one or more organ systems which are or may become a threat to life. I have spent in excess of 39 minutes discontinuously in the care and management of this patient. This time is exclusive of procedures, and includes, but is not limited to, evaluation of the patient, review of the medical record, discussions with family, consultants, nursing staff, or respiratory therapy, and documentation in the medical record. Physician Marianne Reilly MD January 10, 2017 08:50
[2017-01-10] MEDS ORDERED: BISACODYL 10 MG SUPP RECTAL PRN (09:15)
[2017-01-10] MEDS: POLYETHYLENE GLYCOL 17 GM PKG PO SCH (09:56)
[2017-01-10] MEDS: CEFEPIME INJ 2,000 MG in SODIUM CHLORIDE 0.9% INJ 100 ML IV SCH (11:08)
[2017-01-10] MEDS: AZITHROMYCIN INJ 500 MG in SODIUM CHLOR 0.9% 250 ML INJ 250 ML IV SCH (13:00)
--- NOTE | 2017-01-10 13:45 | HHI.NPPN ---
Subjective General Problems: Anemia, Edema, Heart Disease Renal Failure: Acute History of Present Illness 71-year-old the white male the who is transferred from [facility] to [facility] due to atrial fibrillation with fast ventricular response, he was in the heart catheterization lab and became unstable has to intubated the patient has chronic kidney disease, Cardiomyopathy ejection fraction of only 15% and has severe dilated cardiomyopathy with the clot in left atrium he is on heparin drip and currently on ventilator. Additional Remarks Patient remain on the vent. and sedated, clinically same, intubated Bronchoscopy done again Objective Data Data 01/09/17 01/10/17 19:00 07:00 Intake Total 1533 ml 1298 ml Output Total 2025 ml 1200 ml Balance -492 ml 98 ml IV Total 1077 ml 832 ml Tube Feeding 456 ml 466 ml Output Urine Total 2025 ml 1200 ml Stool Total 0 ml # Bowel Movements 0 0 Vital Signs Date Time Temp Pulse Resp B/P Pulse Ox O2 Delivery O2 Flow Rate FiO2 01/10/17 12:46 94 90 01/10/17 12:00 94 Mechanical Ventilator 80 01/10/17 12:00 98.9 119 19 118/54 94 01/10/17 12:00 80 01/10/17 12:00 119 01/10/17 08:09 94 80 01/10/17 08:00 94 Mechanical Ventilator 80 01/10/17 08:00 99.0 125 16 113/70 94 104/55 01/10/17 08:00 125 01/10/17 08:00 80 01/10/17 07:00 113/70 104/55 01/10/17 04:38 94 80 01/10/17 03:24 80 01/10/17 03:08 99.0 114 18 127/56 95 135/65 01/10/17 03:08 95 Mechanical Ventilator 80 01/10/17 03:08 111 01/10/17 01:54 96 75 01/09/17 23:30 80 01/09/17 23:25 118 01/09/17 23:25 98.6 107 16 101/58 96 113/57 01/09/17 23:25 96 Mechanical Ventilator 80 01/09/17 21:14 93 80 01/09/17 20:24 129/76 148/70 01/09/17 19:21 96 Mechanical Ventilator 80 01/09/17 19:21 98.8 73 15 129/76 96 148/70 01/09/17 19:20 120 01/09/17 19:00 79 01/09/17 19:00 80 01/09/17 16:54 90 90 01/09/17 15:00 68 01/09/17 15:00 93 Mechanical Ventilator 90 01/09/17 15:00 98.2 68 21 112/68 93 121/62 01/09/17 15:00 90 -: 01/10/17 0436 01/10/17 0436 Imaging Last Impressions Chest X-Ray 01/10/17 0000 Signed Impressions: Service Date/Time: Tuesday, January 10, 2017 07:08 - CONCLUSION: 1. Increased aeration of the left lung compared to the previous days examination. 2. Mild residual pulmonary vascular congestion bilaterally. 3. Small bilateral pleural effusions. 4. Cardiomegaly. 5. No evidence of pneumothorax. Rickey Mccarthy MD Renal Ultrasound 01/09/17 0000 Signed Impressions: Service Date/Time: Monday, January 09, 2017 13:56 - CONCLUSION: 1. Right kidney is sonographically normal. 2. Benign-appearing 2.4 x 1.5 cm cortical cyst in the midpole of the left kidney. 3. Subcentimeter echogenic, non-shadowing foci in the midpole of the left kidney would be unusual for stones and may represent ectopic hilar fat. No hydronephrosis. 4. Urinary bladder is decompressed with a Alanis catheter. Douglas Ward MD Chest Ultrasound 01/09/17 0000 Signed Impressions: Service Date/Time: Monday, January 09, 2017 08:18 - CONCLUSION: No left-sided pleural effusion. The abnormality in the left chest on chest radiograph is likely related to mucous plugging. When patient had a CT scan yesterday the left lung was well aerated. Edgardo Mayorga MD Chest CT 01/08/17 0600 Signed Impressions: Service Date/Time: Sunday, January 08, 2017 08:46 - CONCLUSION: Massive cardiomegaly with panchamber enlargement extensive coronary calcifications. Stable trace pericardial effusion. Increasing bibasilar consolidative changes with minimal bilateral pleural effusions.. Rhys Fritz MD FACR Thoracentesis 01/08/17 0000 Signed Impressions: Service Date/Time: Sunday, January 08, 2017 16:08 - CONCLUSION: Uncomplicated CT-guided thoracentesis on the right. The left sided thoracentesis was not performed as there was no significant left pleural fluid. The abnormality on most recent chest x-ray was secondary to mucous plugging and left sided atelectasis. Edgardo Mayorga MD Physical Exam Eyes Eye Exam: Pupils Equal Throat Throat Exam: Oral Mucosa [place] & Moist Pulmonary Resp Exam: Crackles, Rhonchi, Decreased Bases, Diminished Breath Sounds Cardiology CV Exam: Arrhythmia Gastrointestinal/Abdomen GI Exam: Soft, Non-Tender, Distended Extremeties Extremities Exam: Moderate Edema, Pitting Edema, Dependent Edema Neurologic Neuro Exam: Sedated Assessment/Plan Problem List: (1) Acute renal failure Plan: Patient is off Bumex drip, urine out put is good. He has poor ejection fraction and is intubated Severe cardiomyopathy prognosis is guarded. Creatinine 3.6 better off Bumex UOP 3.2 L US kidney reviewed Pulmonary following Pulmonary blood clots suctioned may use intermittent diuretics (2) CKD (chronic kidney disease) stage 4, GFR 15-29 ml/min Plan: Has high creatinine kidney ultrasound reviewed (3) CHF (congestive heart failure) Plan: Severe cardiomyopathy EF 15% (4) Atrial fibrillation with rapid ventricular response Plan: Has a blood clot in LA appendage Problem Qualifiers (1) CHF (congestive heart failure): Christa Hahn MD January 10, 2017 13:45
--- NOTE | 2017-01-10 14:20 | RADRPT ---
EXAM DATE/TIME: 01/10/2017 13:20 [place] COMPARISON: CHEST SINGLE AP, January 10, 2017, 7:08. INDICATIONS : Post broncscopy MEDICAL HISTORY : Hypertension. A. Fib. Ventilated. Thyroid disease. Dyspnea. Hydronephrosis. SURGICAL HISTORY : Right thoracentesis. Cardiac catheterization. Cardiac stent placements.Parathyroid removal. ENCOUNTER: Subsequent ACUITY: 1 week PAIN SCORE: Non-responsive. LOCATION: Bilateral chest FINDINGS: A single view of the chest demonstrates cardiomegaly with bilateral pleural effusions and bibasilar d ensities, unchanged. Endotracheal tube, nasogastric tube and right jugular central line in stable pos ition. No pneumothorax. Osseous structures are intact. CONCLUSION: Stable chest. No pneumothorax. Edgardo Mayorga MD on January 10, 2017 at 14:18 Board Certified Radiologist. This report was verified electronically.
--- NOTE | 2017-01-10 16:48 | HHI.IDPN ---
Subjective Subjective Remarks is a 71 y/o CM with PMHx of Morbid Obesity, HTN, SONU not on BiPAP, Afib with RVR. Patients reports they both had a cold recently and his was slightly worse and associated with significant cough and some low grade fever. He was driving from [place] to his 2nd home in [place] when he had worsening dyspnea and so presented to the [facility]. While at that hospital patient was noted to be in Afib with RVR. He underwent an ECHO which showed severe systolic dysfunction with EF 10-15%. He then underwent a cardiac cath at [facility] with left circumflex 90% blockage. The patient underwent multiple attempts of unsuccessful synchronized cardioversion. The patient also underwent medical management with beta blockers, and calcium channel blockers that were also unsuccessful. The patients reports he was treated with IV antibiotics and blood cultures were negative. The patient was transferred to [facility] for cardiac ablation with Dr. Jimenez. The patient was scheduled for cardiac ablation, the procedure was canceled as the patient required emergent intubation and required ventilator management. A VLADIMIR was performed showing a clot in the left atrial appendage. The patient was placed on IV Cardizem, and an amiodarone infusion. Critical Care medicine was consulted for management. ID was consulted for evaluation and Mment of leucocytosis, Pneumonia, possible empyema. Delayed entry. Overnight events reviewed. No fever No rash No diarrhea remains on vent. Plan for bronchoscopy. UO ok. Antibiotics Cefepime IV Azithro IV Lines Line sites with no e/o infection. Past Medical History reviewed Allergies: Coded Allergies: No Known Allergies (Unverified , 01/05/17) Pt stated he had No Known Allergies Objective . Vital Signs Date Time Temp Pulse Resp B/P Pulse Ox O2 Delivery O2 Flow Rate FiO2 01/10/17 15:06 80 01/10/17 15:06 96 Mechanical Ventilator 80 01/10/17 15:05 98.9 119 19 118/54 94 01/10/17 15:00 112 01/10/17 12:46 94 90 01/10/17 12:00 94 Mechanical Ventilator 80 01/10/17 12:00 98.9 119 19 118/54 94 01/10/17 12:00 80 01/10/17 12:00 119 01/10/17 08:09 94 80 01/10/17 08:00 94 Mechanical Ventilator 80 01/10/17 08:00 99.0 125 16 113/70 94 104/55 01/10/17 08:00 125 01/10/17 08:00 80 01/10/17 07:00 113/70 104/55 01/10/17 04:38 94 80 01/10/17 03:24 80 01/10/17 03:08 99.0 114 18 127/56 95 135/65 01/10/17 03:08 95 Mechanical Ventilator 80 01/10/17 03:08 111 01/10/17 01:54 96 75 01/09/17 23:30 80 01/09/17 23:25 118 01/09/17 23:25 98.6 107 16 101/58 96 113/57 01/09/17 23:25 96 Mechanical Ventilator 80 01/09/17 21:14 93 80 01/09/17 20:24 129/76 148/70 01/09/17 19:21 96 Mechanical Ventilator 80 01/09/17 19:21 98.8 73 15 129/76 96 148/70 01/09/17 19:20 120 01/09/17 19:00 79 01/09/17 19:00 80 01/09/17 16:54 90 90 01/09/17 01/09/17 01/10/17 14:59 22:59 06:59 Intake Total 1533 ml 1298 ml Output Total 2025 ml 1200 ml Balance -492 ml 98 ml IV Total 1077 ml 832 ml Tube Feeding 456 ml 466 ml Output Urine Total 2025 ml 1200 ml Stool Total 0 ml # Bowel Movements 0 0 . Laboratory Tests Test 01/09/17 01/10/17 05:30 04:36 White Blood Count 11.2 TH/MM3 14.0 TH/MM3 Red Blood Count 3.42 MIL/MM3 3.64 MIL/MM3 Hemoglobin 10.2 GM/DL 10.7 GM/DL Hematocrit 31.1 % 33.4 % Mean Corpuscular Volume 90.8 FL 91.6 FL Mean Corpuscular Hemoglobin 29.8 PG 29.3 PG Mean Corpuscular Hemoglobin 32.8 % 32.0 % Concent Red Cell Distribution Width 15.2 % 15.7 % Platelet Count 161 TH/MM3 209 TH/MM3 Mean Platelet Volume 10.3 FL 10.3 FL Neutrophils (%) (Auto) 92.4 % Lymphocytes (%) (Auto) 2.1 % Monocytes (%) (Auto) 5.4 % Eosinophils (%) (Auto) 0.0 % Basophils (%) (Auto) 0.1 % Neutrophils # (Auto) 13.0 TH/MM3 Lymphocytes # (Auto) 0.3 TH/MM3 Monocytes # (Auto) 0.8 TH/MM3 Eosinophils # (Auto) 0.0 TH/MM3 Basophils # (Auto) 0.0 TH/MM3 CBC Comment DIFF FINAL Differential Comment Laboratory Tests Test 01/09/17 01/10/17 05:30 04:36 Sodium Level 146 MEQ/L 147 MEQ/L Potassium Level 3.6 MEQ/L 3.7 MEQ/L Chloride Level 98 MEQ/L 100 MEQ/L Carbon Dioxide Level 38.2 MEQ/L 38.1 MEQ/L Anion Gap 10 MEQ/L 9 MEQ/L Blood Urea Nitrogen 120 MG/DL 128 MG/DL Creatinine 3.99 MG/DL 3.67 MG/DL Estimat Glomerular Filtration 15 ML/MIN 16 ML/MIN Rate Random Glucose 204 MG/DL 162 MG/DL Calcium Level 7.6 MG/DL 8.1 MG/DL Phosphorus Level 6.3 MG/DL Magnesium Level 2.6 MG/DL Microbiology Date/Time Procedure Status Source Growth 01/09/17 09:00 Cancelled Bronchial Washings Bronchial 01/09/17 09:00 Gram Stain - Final Resulted Bronchial Washings Left Lower Lobe 01/09/17 09:00 Bronchial Culture - Preliminary Resulted Bronchial Washings Left Lower Lobe NO GROWTH IN 24 HOURS. 01/09/17 09:00 Gram Stain - Final Resulted Bronchial Washings Left Upper Lobe 01/09/17 09:00 Bronchial Culture - Preliminary Resulted Bronchial Washings Left Upper Lobe NO GROWTH IN 24 HOURS. 01/09/17 09:00 Acid Fast Stain - Final Resulted Bronchial Washings Left Lower Lobe NO ACID FAST BACILLI SEEN 01/09/17 09:00 Mycobacterial Culture Resulted Bronchial Washings Left Lower Lobe Pending 01/09/17 09:00 Acid Fast Stain - Final Resulted Bronchial Washings Left Upper Lobe NO ACID FAST BACILLI SEEN 01/09/17 09:00 Mycobacterial Culture Resulted Bronchial Washings Left Upper Lobe Pending 01/09/17 09:00 Fungal Smear - Final Resulted Bronchial Washings Left Lower Lobe NO FUNGAL ELEMENTS SEEN. 01/09/17 09:00 Fungal Culture Resulted Bronchial Washings Left Lower Lobe Pending 01/09/17 09:00 Fungal Smear - Final Resulted Bronchial Washings Left Upper Lobe NO FUNGAL ELEMENTS SEEN. 01/09/17 09:00 Fungal Culture Resulted Bronchial Washings Left Upper Lobe Pending Imaging Last Impressions Chest CT 01/08/17 0600 Signed Impressions: Service Date/Time: Sunday, January 08, 2017 08:46 - CONCLUSION: Massive cardiomegaly with panchamber enlargement extensive coronary calcifications. Stable trace pericardial effusion. Increasing bibasilar consolidative changes with minimal bilateral pleural effusions.. Rhys Fritz MD FACR Chest X-Ray 01/08/17 0000 Signed Impressions: Service Date/Time: Sunday, January 08, 2017 10:26 - CONCLUSION: Increasing left pleural effusion when compared to study earlier the same day. Rhys Fritz MD FACR Chest Ultrasound 01/07/17 0000 Signed Impressions: Service Date/Time: Saturday, January 07, 2017 16:04 - CONCLUSION: 1. Small right pleural effusion noted with estimated volume of 78 cc. Amount insufficient for safe thoracentesis with patient in lateral decubitus position. Osmany Javed MD Physical Exam GENERAL: Obese, well-developed patient, in no apparent distress. SKIN: No rashes, ecchymoses or lesions. Cool and dry. HEAD: Atraumatic. Normocephalic. No temporal or scalp tenderness. EYES: Pupils equal round and reactive. Extraocular motions intact. No scleral icterus. No injection or drainage. ENT: Intubated. NECK: Trachea midline. Supple, nontender, no meningeal signs. Large neck. CARDIOVASCULAR: HS audible. Irregular HR. RESPIRATORY: Breath sounds equal bilaterally decreased in the bases. Left side remarkable decrease in breath sounds. GASTROINTESTINAL: Abdomen soft, non-tender, nondistended. MUSCULOSKELETAL: Extremities without clubbing, cyanosis, or edema. NEUROLOGICAL: Awake and alert. Grossly non focal Psych: cooperative IV line sites with no e.o infection. Assessment & Plan Remarks Pneumonia: ? Viral followed by Secondary bacterial pneumonia, Atypical pneumonia. Possible Empyema. Afib with RVR: infection as precipitant. Ischemic Cardiomyopathy EF 10-15% SONU not on BiPAP. Acute renal failure: sepsis, contrast, meds. Hyperglycemia ? DM, ? stress Acute resp failure on vent. Recs: continue Cefepime IV Continue Azithro IV Will follow clinically Will follow cultures D/w : if ongoing fresh uncontrolled nasal bleed consider ENT consult. Case d.w bedside RN. Gema Gage MD January 10, 2017 16:48
[2017-01-11] VITALS (15 sets, daily range): BP systolic 89–124; BP diastolic 50–77; PULSE 108–129; RESP 14–20; TEMP 99–100; O2SAT 88–96
[2017-01-11] MEDS: PROPOFOL 1000 MG/100 ML IV SCH ×6 (00:44→20:03)
[2017-01-11] MEDS: INSULIN ASPART SUPPLEMENTAL SCALE SQ SCH ×4 (01:08→17:18)
[2017-01-11] MEDS: RESP: ALBUTEROL 2.5 MG/IPRATROPIUM 0.5 MG NEB (PRN) NEB ×2 (03:06→08:20)
[2017-01-11] MEDS: RESP: ACETYLCYSTEINE 10% 30 ML NEB NEB SCH ×2 (03:06→08:21)
[2017-01-11] MEDS: CHLORHEXIDINE GLUCONATE 2 % 1 PACK (2 CLOTHS) TOP SCH (04:00)
[2017-01-11] MEDS: FAMOTIDINE 20 MG/2 ML VIAL IV PUSH SCH (04:04)
[2017-01-11] MEDS: methylPREDNISolone SOD SUCC 40 MG/1 ML VIAL IV PUSH SCH ×4 (04:04→20:24)
[2017-01-11] MEDS: HEPARIN-D5W INJ 250 ML IV SCH (04:49)
[2017-01-11 04:51] LABS: HEMATOCRIT 32.5 % (39.0-51.0); MEAN CELL VOLUME 91.2 FL (80.0-100.0); MEAN CORPUSCULAR HGB CONC 32.9 % (32.0-36.0); PLATELET COUNT 233 TH/MM3 (150-450); RED BLOOD COUNT 3.57 MIL/MM3 (4.50-5.90); RED CELL DISTRIBUTION WIDTH 15.9 % (11.6-17.2); REVIEW FLAG FINAL; WHITE BLOOD COUNT 15.3 TH/MM3 (4.0-11.0)
[2017-01-11 05:01] LABS: APTT (PATIENT) 52.3 SEC (24.3-30.1)
[2017-01-11 05:05] LABS: BICARBONATE 35.6 MEQ/L (21.0-32.0); POTASSIUM 4.1 MEQ/L (3.5-5.1)
--- NOTE | 2017-01-11 05:12 | RADRPT ---
EXAM DATE/TIME: 01/11/2017 04:16 [place] COMPARISON: CHEST SINGLE AP, January 10, 2017, 13:20. INDICATIONS : Shortness of breath, possible pulmonary disease. MEDICAL HISTORY : Hypertension. A-Fib SURGICAL HISTORY : Coronary artery stent. Thoracentesis ENCOUNTER: Subsequent ACUITY: 1 week PAIN SCORE: Non-responsive. LOCATION: Bilateral chest FINDINGS: A single portable frontal view of the chest shows persistent bibasilar infiltrates. Small effusions. Heart is enlarged. Tip of the endotracheal tube 4 cm cephalad to the saturnino. Nasogastric tube. Right sided central line. CONCLUSION: Unchanged bibasilar infiltrates and small effusions. John Ramirez Jr., MD on January 11, 2017 at 5:10 Board Certified Radiologist. This report was verified electronically.
[2017-01-11 07:24] LABS: BLOOD GAS BASE EXCESS 8.8 mmol/L (-2-2); BLOOD GAS CARBOXYHEMOGLOBIN 1.4 % (0-4); BLOOD GAS HCO3 34 mmol/L (22-26); BLOOD GAS METHEMOGLOBIN 1.2 % (0-2); BLOOD GAS O2 HGB SATURATION 90 % (90-100); BLOOD GAS OXYGEN CONTENT 13.7 Vol % (12.0-20.0); BLOOD GAS PCO2 52 mmHg (38-42); BLOOD GAS PO2 70 mmHg (61-120); BLOOD GAS TOTAL HGB 10.8 G/DL (12.0-16.0); CRITICAL VALUE YES; OXYGEN DEVICE VENTILATOR; TEMP CORR TO 98.6
[2017-01-11 07:26] LABS: DRAW SITE ART LINE; FIO2 70 %; STAT NO; VENT SETTINGS PRVC14/500/.9/10PEEP
[2017-01-11] MEDS: AMIODARONE INJ 450 MG in D5W (EXCEL BAG) 241 ML IV SCH (08:04)
[2017-01-11] MEDS: CHLORHEXIDINE 0.12% (ORAL KIT) 15 ML CUP MT SCH ×2 (08:07→20:00)
--- NOTE | 2017-01-11 08:26 | HHI.CCPN ---
Subjective Remarks/Hospital Course This is a 71-year-old gentleman that presented to [facility] secondary to dyspnea and atrial fibrillation with RVR. The patient has a medical history significant for obesity and hypertension. During his hospitalization at [facility], the patient underwent an echocardiogram which showed severe systolic dysfunction with an ejection fraction of 1015 % the patient then underwent a cardiac catheterization showing significance with left circumflex 90%. The patient underwent multiple attempts of unsuccessful synchronized cardioversion. The patient also underwent medical management with beta blockers, and calcium channel blockers that were also unsuccessful. The patient was transferred to [facility] for cardiac ablation with Dr. Jimenez. The patient was scheduled for cardiac ablation, the procedure was canceled. The patient required emergent intubation and required ventilator management a VLADIMIR was performed showing a clot in the left atrial appendage. The patient was placed on IV Cardizem, and an amiodarone infusion. Critical Care medicine was consulted for management. Subjective: 01/06: Tmax 97.4. The patient remained on elevated vent settings with FiO2 of 1.0 overnight, PEEP requirements were increased to 8, to maintain a PaO2 of greater than [address] scan of the chest was obtained which noted bilateral effusions small, basilar consolidations right worse than the left, and a loculated area representing a possible pneumonia process, empyema, as well as aspiration or just loculated fluid as well as a small pericardial effusion. The patient continues on Cardizem and amiodarone infusions with a heart rate overnight 80s -115. The patient's vasopressor requirements of phenylephrine diminished to 20 mcgs. 01/07: Tmax 99.2. Yesterday the central line was placed for vasoactive medications and CVP monitoring, small hematoma noted near the right IJ area soft no compression of major vessels, with resolution of bleeding in that area. Phenylephrine was discontinued yesterday. The patient heart rate remains today [id number]. Cardizem infusion has been discontinued in the setting of EF of 10-15%. Esmolol infusion to be initiated this a.m.. Coumadin was initiated last night now placed on hold due to patient bleeding from nasopharynx and oropharynx. INR currently 1.2. Plan for CT thorax tomorrow, with possible IR intervention versus CVT consultation for possible empyema the patient will remain on heparin infusion, and transition onto Coumadin after any potential procedures to be initiated. Chest x-ray slightly improved FiO2 decreasing now 70%. Sedation vacation yesterday revealed GCS 11 T, patient alert responsive following commands. With initiation of antibiotics, leukocytosis resolved. ID consulted Dr. Gage. Blood cultures are pending. 01/08: Patient's heart rate 110-[address] scan of the chest imaging revealed fluid. Plan for thoracentesis and and studies of pleural fluid , this afternoon. The patient remains on amiodarone and heparin infusions, per cardiology. Heparin held, for thoracentesis this afternoon, and then will be resumed. The patient was maintained on CPAP trial for approximately one hour yesterday. During sedation vacation patient was alert following commands recognizing family. Plan to resume CPAP trials this afternoon post thoracentesis. 01/09: The patient underwent CT-guided thoracentesis yesterday , on the right side noted 400 cc of fluid was removed , with specimens ordered to be sent for evaluation .This morning chest x-ray performed showing almost complete opacification of the left lung. FiO2 requirements increase patient on FiO2 of 80%, O2 sat 94%. Left chest ultrasound obtained revealing no fluid. Consent obtained BAL performed, revealing emanating from the nearest previously ( patient was noted to have epistaxis with initiation of heparin on 01/06). Blood clots noted in left lung upon visualization with bronchoscopy, saline lavage applied, minimal blood clots removed. The patient was initiated on Mucomyst 10% , and pulmonology was consulted. Dr. Tasia Laam following. The patient shows no signs or evidence of bleeding actively, plan to consult ENT if signs of active bleeding become evident. Hemoglobin remains stable.The patient converted into sinus rhythm is today afternoon. Cardiology management of medications, IV amiodarone discontinued this afternoon. 01/10: Tmax 99.0. Chest x-ray shows slight improvement of left lung today. Plan for repeat bronchoscopy per Dr. Burch this a.m, and the patient continues on Mucomyst. The patient's cardiac rhythm reverted to A. fib last evening, amiodarone IV infusion reinstituted per Dr. Jimenez. 01/11: TMax 100.0. Much improved chest x-ray this morning. The patient continues in A. fib with a rate of 120, he continues on amiodarone, heparin infusion per cardiology. No evidence of active bleeding. Objective Vital Signs Date Time Temp Pulse Resp B/P Pulse Ox O2 Delivery O2 Flow Rate FiO2 01/11/17 07:37 91 70 01/11/17 07:00 Mechanical Ventilator 01/11/17 07:00 117 01/11/17 07:00 99.0 16 115/67 108/50 Intake and Output 01/10/17 01/10/17 01/11/17 08:00 16:00 00:00 Intake Total 1298 ml 1196 ml Output Total 1200 ml 1050 ml Balance 98 ml 146 ml Result Diagram: 01/11/17 0423 01/11/17 0423 Other Results Laboratory Tests Test 01/11/17 06:55 Blood Gas Puncture Site ART LINE Blood Gas Patient Temperature 98.6 Blood Gas HCO3 34 mmol/L (22-26) Blood Gas Base Excess 8.8 mmol/L (-2-2) Blood Gas Oxygen Saturation 90 % (90-100) Arterial Blood pH 7.42 (7.380-7.420) Arterial Blood Partial 52 mmHg (38-42) Pressure CO2 Arterial Blood Partial 70 mmHg Pressure O2 (61-120) Arterial Blood Oxygen Content 13.7 Vol % (12.0-20.0) Arterial Blood 1.4 % (0-4) Carboxyhemoglobin Arterial Blood Methemoglobin 1.2 % (0-2) Blood Gas Hemoglobin 10.8 G/DL (12.0-16.0) Oxygen Delivery Device VENTILATOR Blood Gas Ventilator Setting PRVC14/[id number]/10PEEP Blood Gas Inspired Oxygen 70 % Imaging Last Impressions Chest X-Ray 01/05/17 0000 Signed Impressions: Service Date/Time: Thursday, January 05, 2017 14:20 - CONCLUSION: Cardiomegaly with basilar pleuroparenchymal opacities. ET tube in satisfactory position. Daniel Cantu MD Chest CT 01/05/17 0000 Signed Impressions: Service Date/Time: Thursday, January 05, 2017 18:08 - CONCLUSION: 1. Panchamber enlargement of the heart. 2. Small pericardial effusion. 3. Coronary artery calcification. 4. Bilateral pleural effusions and basilar consolidation, right worse than left. Daniel Germain MD Objective Remarks GENERAL: Critically ill-appearing appropriately stated age, obese male sedated and intubated SKIN: Peripheral extremities cool and mottled. HEAD: Atraumatic. Normocephalic. EYES: Pupils equal and round, 3mm. No scleral icterus. No injection or drainage. ENT: No nasal bleeding or discharge. Mucous membranes pink and moist. Orotracheally intubated NECK: Trachea midline. Unable to assess JVD secondary to body habitus. Soft tissue swelling noted at RIJ site, diminishing, area soft, ecchymosis resolving CARDIOVASCULAR: Irregular rate and rhythm. Telemetry 120 RESPIRATORY: Mechanical ventilation. Clear to auscultation, distant, fine rales in bases. Breath sounds equal bilaterally. GASTROINTESTINAL: Abdomen soft, obese non-tender, nondistended. MUSCULOSKELETAL: Extremities without clubbing, cyanosis, or edema. No obvious deformities. NEUROLOGICAL: RASS -2. Intubated and sedated. Follows commands moving extremities 4, off sedation Urinary Catheter: Yes Date of Insertion: January 05, 2017 Date of Insertion: January 06, 2017 Line: Central Venous Catheter Side: Right Location: Internal, Jugular A/P Assessment and Plan A. fib with RVR Left atrial appendage thrombus Cardiomyopathy Systolic CHF Acute hypoxic respiratory failure Hypertension Renal insufficiency Obesity Probable aspiration Possible multilobar [id number] Bilateral pleural effusion Hypokalemia-resolved Leukocytosis-resolved Soft tissue hematoma right neck Left lung consolidation 2/2 previous event of epistaxis, clotted blood left lung SONU Neurologic: Propofol for sedation to maintain ventilator synchrony Neurochecks per ICU protocol GCS 11 T off sedation Respiratory: Maintain O2 sat greater than 92%, wean FiO2 Increasing O2 requirements currently FiO2 70% PEEP 8, will continue to decrease FiO2 to maintain a PaO2 of 60 or greater. Continue ARDS net protocol 01/05 CT chest-pericardial effusion small, bilateral effusions, basilar consolidation and right greater than left Continue diuresis-currently on Bumex 0.5 mg/hour per nephrology Bronchodilators schedule every 4 hours, every 2 hours when necessary Daily CPAP trials Solu-Medrol 40 mg every 12 hours-per pulmonology Mucomyst 10% increase to 20% per pulmonology Pulmonology consultedDr. Darling Lama-maintain PEEP10, keep patient on the right side, possible bronchoscopy in 2-3 days, S/P Mucomyst Patient to continue on heparin infusion, for possible interventions then transitioning to Coumadin per Cardiology 01/08-right CT-guided thoracentesis-400 cc removed, sent for cytology and cultures 01/09 Fiberoptic bronchoscopy with BAL 01/10-bronchoscopy scheduled- Dr. Burch 01/11: Chest x-ray much improved, lung consolidation resolved Cardiovascular: Continue heparin infusion per cardiology Amiodarone infusion discontinued 01/09-resumed 01/10 Phenylephrine discontinued 01/06-resumed 01/10 Cardizem discontinued 01/07 01/05 VLADIMIR( [employer])-left atrial thrombus 12/26 [facility] severe systolic dysfunction EF 1015%, mitral valve mild to moderate regurg, LAE, tricuspid Valve-mild to moderate regurg, small pericardial effusion, cardiac cath left circumflex 90% occlusion Maintain MAP greater than 65mmHg Management per Cardiology - Dr. Jimenez 01/05 BNP-596 Renal: Nephrology following-Dr. Hahn Bumex infusion 0.25mg/hour is continued 01/09 Follow-up kidney ultrasound Creatinine 3.9-> 3.6->3.3 today, continue to monitor Urine output 3.2 L in the last 24 hour -- Strict I/Os FEN/GI: Tube feeds Nepro @40 cc Monitor BMP Bowel regimen-add MiraLAX, and docusate suppository Zofran for nausea Heme/ID: Monitor CBC. Hemoglobin stable No active signs of bleeding. Epistaxis resolved on 01/07 01/06 urine, sputum, blood cultures-NGTD 01/06-Legionella urine antigen negative Antibiotics per ID -Dr. Gage F/U cultures and specimen from BAL and thoracentesis Endocrine: Glucose monitoring per ICU protocol, medium dose regimen -- SSI Prophylaxis: GI Prophylaxis Pepcid twice a day DVT Prophylaxis -- SCDs Heparin infusion per cardiology Lines: Peripheral IV's. Right IJ 01/06 Discussed ENDLESS BED DRUM SANDER at bedside. Dispo: This patient remains critically ill with one or more organ systems which are or may become a threat to life. I have spent in excess of 35 minutes discontinuously in the care and management of this patient. This time is exclusive of procedures, and includes, but is not limited to, evaluation of the patient, review of the medical record, discussions with family, consultants, nursing staff, or respiratory therapy, and documentation in the medical record. Physician Marianne Reilly MD January 11, 2017 08:26
[2017-01-11] MEDS: ASPIRIN 81 MG CHEW TAB PO SCH (08:56)
[2017-01-11] MEDS: POLYETHYLENE GLYCOL 17 GM PKG PO SCH (08:56)
[2017-01-11] MEDS: DOCUSATE SODIUM 100 MG/10 ML UDC PO SCH ×2 (08:56→20:25)
[2017-01-11] MEDS: SENNOSIDES SYRUP 8.8 MG/5 ML CUP PO SCH (08:57)
[2017-01-11] MEDS: SODIUM CHLORIDE 0.9% FLUSH 10 ML FLUSH IV FLUSH SCH ×2 (08:59→20:25)
[2017-01-11] MEDS: SACUBITRIL/VALSARTAN 24 MG-26 MG TAB PO SCH ×2 (09:00→20:21)
[2017-01-11] MEDS: HYDROCHLOROTHIAZIDE 25 MG TAB PO SCH (09:00)
[2017-01-11] MEDS: hydrALAZINE HCL 25 MG TAB PO SCH ×2 (09:00→20:21)
[2017-01-11] MEDS: CEFEPIME INJ 2,000 MG in SODIUM CHLORIDE 0.9% INJ 100 ML IV SCH (11:55)
[2017-01-11] MEDS: AZITHROMYCIN INJ 500 MG in SODIUM CHLOR 0.9% 250 ML INJ 250 ML IV SCH (13:29)
--- NOTE | 2017-01-11 14:19 | HHI.NPPN ---
Subjective General Problems: Anemia, Edema, Heart Disease Renal Failure: Acute History of Present Illness 71-year-old the white male the who is transferred from [facility] to [facility] due to atrial fibrillation with fast ventricular response, he was in the heart catheterization lab and became unstable has to intubated the patient has chronic kidney disease, Cardiomyopathy ejection fraction of only 15% and has severe dilated cardiomyopathy with the clot in left atrium he is on heparin drip and currently on ventilator. Additional Remarks Patient remain on the vent. and sedated, clinically same, intubated Objective Data Data 01/10/17 01/11/17 19:00 07:00 Intake Total 1196 ml 1317 ml Output Total 1050 ml 1100 ml Balance 146 ml 217 ml Intake Oral 0 ml IV Total 956 ml 890 ml Tube Feeding 120 ml 427 ml Tube Irrigant 120 ml Output Urine Total 1050 ml 1100 ml # Bowel Movements 0 0 Vital Signs Date Time Temp Pulse Resp B/P Pulse Ox O2 Delivery O2 Flow Rate FiO2 01/11/17 11:48 88 70 01/11/17 11:00 70 01/11/17 11:00 90 Mechanical Ventilator 70 01/11/17 11:00 118 01/11/17 11:00 99.7 118 20 89/68 90 121/64 01/11/17 07:37 91 70 01/11/17 07:00 90 Mechanical Ventilator 70 01/11/17 07:00 70 01/11/17 07:00 117 01/11/17 07:00 99.0 117 16 115/67 90 108/50 01/11/17 07:00 115/67 108/50 01/11/17 04:40 90 70 01/11/17 03:00 110 01/11/17 03:00 92 Mechanical Ventilator 70 01/11/17 03:00 100.0 108 17 124/60 92 01/11/17 03:00 70 01/11/17 02:04 91 70 01/10/17 23:00 98.3 108 17 121/61 94 01/10/17 23:00 92 Mechanical Ventilator 70 01/10/17 23:00 120 01/10/17 23:00 70 01/10/17 22:20 92 70 01/10/17 19:00 108 122/59 01/10/17 19:00 94 Mechanical Ventilator 70 01/10/17 19:00 98.6 108 17 122/59 94 01/10/17 19:00 108 01/10/17 19:00 70 01/10/17 16:15 96 70 01/10/17 15:06 80 01/10/17 15:06 96 Mechanical Ventilator 80 01/10/17 15:05 98.9 119 19 118/54 94 01/10/17 15:00 112 -: 01/11/17 0423 01/11/17 0423 Physical Exam Eyes Eye Exam: Pupils Equal Throat Throat Exam: Oral Mucosa [place] & Moist Pulmonary Resp Exam: Crackles, Rhonchi, Decreased Bases, Diminished Breath Sounds Cardiology CV Exam: Arrhythmia Gastrointestinal/Abdomen GI Exam: Soft, Non-Tender, Distended Extremeties Extremities Exam: Moderate Edema, Pitting Edema, Dependent Edema Neurologic Neuro Exam: Sedated Assessment/Plan Problem List: (1) Acute renal failure Plan: Patient is off Bumex drip, urine out put is good. He has poor ejection fraction and is intubated Severe cardiomyopathy prognosis is guarded. Creatinine 3.3 better off Bumex UOP 2.1 L Afib with RVR on Amiodarone Pulmonary following Pulmonary blood clots suctioned may use intermittent diuretics (2) CKD (chronic kidney disease) stage 4, GFR 15-29 ml/min Plan: Has high creatinine kidney ultrasound reviewed (3) CHF (congestive heart failure) Plan: Severe cardiomyopathy EF 10-15% (4) Atrial fibrillation with rapid ventricular response Plan: Has a blood clot in LA appendage Problem Qualifiers (1) CHF (congestive heart failure): Christa Hahn MD January 11, 2017 14:19
--- NOTE | 2017-01-11 15:49 | HHI.PR ---
Subjective Remarks On mechanical ventilation Objective Vital Signs Date Time Temp Pulse Resp B/P Pulse Ox O2 Delivery O2 Flow Rate FiO2 01/11/17 15:15 88 100 01/11/17 11:48 88 70 01/11/17 11:00 70 01/11/17 11:00 90 Mechanical Ventilator 70 01/11/17 11:00 118 01/11/17 11:00 99.7 118 20 89/68 90 121/64 01/11/17 07:37 91 70 01/11/17 07:00 90 Mechanical Ventilator 70 01/11/17 07:00 70 01/11/17 07:00 117 01/11/17 07:00 99.0 117 16 115/67 90 108/50 01/11/17 07:00 115/67 108/50 01/11/17 04:40 90 70 01/11/17 03:00 110 01/11/17 03:00 92 Mechanical Ventilator 70 01/11/17 03:00 100.0 108 17 124/60 92 01/11/17 03:00 70 01/11/17 02:04 91 70 01/10/17 23:00 98.3 108 17 121/61 94 01/10/17 23:00 92 Mechanical Ventilator 70 01/10/17 23:00 120 01/10/17 23:00 70 01/10/17 22:20 92 70 01/10/17 19:00 108 122/59 01/10/17 19:00 94 Mechanical Ventilator 70 01/10/17 19:00 98.6 108 17 122/59 94 01/10/17 19:00 108 01/10/17 19:00 70 01/10/17 16:15 96 70 I/O 01/10/17 01/10/17 01/10/17 01/11/17 01/11/17 01/11/17 07:00 15:00 23:00 07:00 15:00 23:00 Intake Total 1298 ml 1196 ml 1317 ml Output Total 1200 ml 1050 ml 1100 ml Balance 98 ml 146 ml 217 ml Intake Oral 0 ml IV Total 832 ml 956 ml 890 ml Tube Feeding 466 ml 120 ml 427 ml Tube Irrigant 120 ml Output Urine Total 1200 ml 1050 ml 1100 ml # Bowel Movements 0 0 0 Result Diagram: 01/11/17 0423 01/11/17 042 Imaging Sedated, on mechanical ventilation lungs: bilateral ventilation Heart: S1, S2 irregular, tachycardia Abdomen: soft, no mass Ext: no edema Last Impressions Chest X-Ray 01/11/17 0600 Signed Impressions: Service Date/Time: January 04:16 - CONCLUSION: Unchanged bibasilar infiltrates and small effusions. John Ramirez Jr., MD Renal Ultrasound 01/09/17 0000 Signed Impressions: Service Date/Time: Monday, January 09, 2017 13:56 - CONCLUSION: 1. Right kidney is sonographically normal. 2. Benign-appearing 2.4 x 1.5 cm cortical cyst in the midpole of the left kidney. 3. Subcentimeter echogenic, non-shadowing foci in the midpole of the left kidney would be unusual for stones and may represent ectopic hilar fat. No hydronephrosis. 4. Urinary bladder is decompressed with a Alanis catheter. Douglas Ward MD Chest Ultrasound 01/09/17 0000 Signed Impressions: Service Date/Time: Monday, January 09, 2017 08:18 - CONCLUSION: No left-sided pleural effusion. The abnormality in the left chest on chest radiograph is likely related to mucous plugging. When patient had a CT scan yesterday the left lung was well aerated. Edgardo Mayorga MD Chest CT 01/08/17599 Signed Impressions: Service Date/Time: Sunday, January 08, 2017 08:46 - CONCLUSION: Massive cardiomegaly with panchamber enlargement extensive coronary calcifications. Stable trace pericardial effusion. Increasing bibasilar consolidative changes with minimal bilateral pleural effusions.. Rhys Fritz MD FACR Thoracentesis 01/08/17 Signed Impressions: Service Date/Time: Sunday, January 08, 2017 16:08 - CONCLUSION: Uncomplicated CT-guided thoracentesis on the right. The left sided thoracentesis was not performed as there was no significant left pleural fluid. The abnormality on most recent chest x-ray was secondary to mucous plugging and left sided atelectasis. Edgardo Mayorga MD Current Medications Medications (Trade) Dose Ordered Sig/Claire Route Start Time Stop Time Status Last Admin (Aspirin Chew) 81 mg DAILY PO 01/05/17 09:00 01/11/17 08:56 (Hydrodiuril) 25 mg DAILY PO 01/05/17 09:00 01/10/17 08:35 Hydralazine HCl 25 mg 25 mg BID PO 01/04/17 21:00 01/10/17 20:50 Sodium Chloride 500 ml @ 30 mls/hr CONTINUOUS IV 01/05/17 10:00 (NS 500 ml Inj) 500 ml @ 30 mls/hr CONTINUOUS IV 01/05/17 09:15 (Entresto 24-26 Mg) 1 tab BID PO 01/05/17 21:00 01/10/17 20:50 (Heparin Inj) 5,000 units UNSCH PRN IV 01/05/17 19:45 Heparin Sodium (Porcine) 2500 units 2,500 units UNSCH PRN IV 01/05/17 19:45 01/08/17 20:21 (Heparin-D5W Inj) 250 ml @ 0 mls/hr TITRATE IV 01/05/17 14:00 01/11/17 04:49 (Brethine Inj) 1 mg UNSCH PRN SQ 01/05/17 16:00 Famotidine 10 mg 10 mg Q12H IV PUSH 01/05/17 17:00 01/11/17 04:04 (Diprivan 1000 Mg/100ml Inj) 100 ml @ 0 mls/hr TITRATE IV 01/05/17 21:45 01/11/17 15:33 (Tears Naturale Opth Soln) 1 drop Q4H PRN EACH EYE 01/06/17 08:15 01/06/17 21:43 (Peridex 0.12% Liq) 15 ml BID@08,20 MT 01/06/17 20:00 01/11/17 08:07 (Colace Liq) 100 mg Q12HR PO 01/06/17 21:00 01/11/17 08:56 Sennosides 8.8 mg 8.8 mg DAILY PO 01/07/17 09:00 01/11/17 08:57 Cefepime HCl 2000 mg/Sodium Chloride 100 ml @ 200 mls/hr Q24H IV 01/06/17 12:00 01/11/17 11:55 (Zithromax Inj/ NS 250 ml Inj) 250 ml @ 250 mls/hr Q24H IV 01/06/17 13:00 01/11/17 13:29 (NS Flush) 2 ml UNSCH PRN IV FLUSH 01/06/17 13:15 (NS Flush) 2 ml BID IV FLUSH 01/06/17 21:00 01/11/17 08:59 Miscellaneous Information 1 Q361D XX 01/06/17 13:15 (Chlorhexidine 2% Cloth) 3 pack Taper DAILY@04 TOP 01/07/17 04:00 01/03/18 03:59 01/11/17 04:00 (Chlorhexidine 2% Cloth) 3 pack UNSCH PRN TOP 01/06/17 13:15 (SoluMEDROL INJ) 40 mg Q6H IV PUSH 01/07/17 09:00 01/11/17 15:35 (D50w (Vial) Inj) 25 ml UNSCH PRN IV PUSH 01/09/17 07:15 Glucagon 1 mg 1 mg UNSCH PRN OTHER 01/09/17 07:15 (Cordarone Inj/ D5W ([place]) Inj) 250 ml @ 0 mls/hr CONTINUOUS IV 01/09/17 19:45 01/11/17 08:04 (Coreg) 6.25 mg Q12H PO 01/09/17 20:00 Hold 01/09/17 20:06 Insulin Aspart 1 1 Q6HR SQ 01/10/17 06:00 01/11/17 12:22 (Neosynephrine Inj/D5W 500 ml Inj) 500 ml @ 0 mls/hr TITRATE IV 01/10/17 03:30 01/10/17 02:42 (Dulcolax Supp) 10 mg DAILY PRN RECTAL 01/10/17 09:15 01/10/17 09:56 (Miralax) 17 gm DAILY PO 01/10/17 09:15 01/11/17 08:56 Assessment and Plan Problem List: (1) SOB (shortness of breath) Status: Acute Plan: Bronchoscopy done yesterday. Clots removed Better ventilation Since this morning sat decreases. May is due to leak at the endotracheal tube Critical care will reevaluate the patient (2) CHF (congestive heart failure) Status: Acute Plan: back on pressor today. HR high (3) Atrial fibrillation with rapid ventricular response Status: Acute Plan: Back into atrial fib again. HR high. Cannot tolerate meds. Creat improve but still 3.337 Condition critical. Prognosis guarded Problem Qualifiers (1) CHF (congestive heart failure): Narcisa Jimenez MD January 11, 2017 15:49
[2017-01-11] MEDS ORDERED: ROCURONIUM INJ 50 MG/5 ML VIAL ONE (16:05)
--- NOTE | 2017-01-11 16:24 | PD.PROCEDR ---
Procedure Note Procedure Indication: Cuff damage with inability to ventilate and severe worsening hypoxemia: INTUBATION: The patient was put in optimal position for the procedure. Paralyzed with 100 mg Rocuronium, and propofol gtt continued. GlideScope #4 blade was placed and Grade 1 view was obtained. Existing damaged 7.5 ETT was removed and patient was re intubated with 8.0 cuffed ETT. Tube placement was confirmed by visualization of the tube and balloon passing through the cords, capnometry and subsequent chest x-ray. Breath sounds were equal and well aerated bilaterally postintubation. No breath sounds over stomach. Patient tolerated procedure well. Stat CXR ordered Chuck Sanchez MD January 11, 2017 16:24
[2017-01-11] MEDS ORDERED: ROCURONIUM INJ 50 MG/5 ML VIAL IV ONE (16:45)
--- NOTE | 2017-01-11 17:07 | RADRPT ---
EXAM DATE/TIME: 01/11/2017 16:44 [facility] COMPARISON: CHEST SINGLE AP, January 11, 2017, 4:16. INDICATIONS : Evaluate ET tube exchange MEDICAL HISTORY : Hypertension. A-fib SURGICAL HISTORY : Coronary artery stent. Thoracentesis ENCOUNTER: Subsequent ACUITY: 1 week PAIN SCORE: Non-responsive. LOCATION: chest FINDINGS: No endotracheal tube is located 2-3 cm above the saturnino. Nasogastric tube has been removed. The lungs are hypoaerated. There is significant basilar air space disease and opacity. The heart karen ins moderately enlarged. CONCLUSION: Satisfactory position of new endotracheal tube. Significant bibasilar opacity and cardiomegaly. Theo Rodriguez MD on January 11, 2017 at 17:04 Board Certified Radiologist. This report was verified electronically.
[2017-01-11 18:30] LABS: BLOOD GAS CARBOXYHEMOGLOBIN 1.3 % (0-4); BLOOD GAS HCO3 32 mmol/L (22-26); BLOOD GAS METHEMOGLOBIN 1.3 % (0-2); BLOOD GAS O2 HGB SATURATION 90 % (90-100); BLOOD GAS OXYGEN CONTENT 15.4 Vol % (12.0-20.0); BLOOD GAS PCO2 46 mmHg (38-42); BLOOD GAS PO2 68 mmHg (61-120); BLOOD GAS TOTAL HGB 12.1 G/DL (12.0-16.0); CRITICAL VALUE NO; OXYGEN DEVICE VENTILATOR; TEMP CORR TO 98.6
[2017-01-11 18:31] LABS: DRAW SITE ART LINE; FIO2 100 %; STAT NO; VENT SETTINGS 550/14/PEEP 10/
--- NOTE | 2017-01-11 18:54 | MR ---
cc: Julius BURCH M.D. DATE 01/10/17 PROCEDURE Fiberoptic bronchoscopy with washings and therapeutic lavage of the bronchial tree. ANESTHESIA IV Diprivan. The patient is on ventilator support and is intubated. PREOPERATIVE DIAGNOSIS Atelectasis left lung. POSTOPERATIVE DIAGNOSIS Atelectasis left lung with mucus plugging and clot. SURGEON Gaby Burch MD PROCEDURE AND FINDINGS The patient was already intubated with a 7.5 ET tube and the Olympus IT 180 bronchoscope was used to visualize the bronchi. The scope was advanced via the endotracheal tube into the trachea. The trachea and saturnino appeared normal. The scope was then advanced into the right mainstem and right upper lobe segmental bronchi. These bronchi demonstrated a few bloody secretions which were suctioned out. Saline washings were done. No endobronchial masses seen. Next the scope was advanced into the right middle and right lower lobe segmental bronchi. Right middle lobe segmental bronchi demonstrated no endobronchial lesions. There were mucoid secretions and these were suctioned out. Next, scope was advanced to the right lower lobe segmental bronchi. These bronchi demonstrated mucoid and bloody secretions and these were suctioned out. Saline washings and lavage were done. No endobronchial masses were seen. Following this, the scope was advanced into the left main stem and left upper lobe segmental bronchi. The left upper lobe bronchus was filled with mucoid and bloody secretions with organized clots and these were suctioned out until clear. Saline washings were done. There were no endobronchial masses seen. Next, the left lower lobe segmental bronchi visualized which demonstrated old clots with organized clots with secretions and these were loosened with saline washings and suctioned out and saline lavage was carried out until clear. No endobronchial lesions were seen here. The procedure was then terminated. The patient tolerated the procedure well and he was kept on 100% FIO2 throughout the procedure maintaining sats over 95 all the time. MD JOSESITO Azul/ /11:48 AM /6:33 PM
[2017-01-11 19:55] LABS: BLOOD GAS BASE EXCESS 8.5 mmol/L (-2-2); BLOOD GAS CARBOXYHEMOGLOBIN 1.5 % (0-4); BLOOD GAS HCO3 32 mmol/L (22-26); BLOOD GAS METHEMOGLOBIN 1.4 % (0-2); BLOOD GAS O2 HGB SATURATION 91 % (90-100); BLOOD GAS OXYGEN CONTENT 14.6 Vol % (12.0-20.0); BLOOD GAS PCO2 39 mmHg (38-42); BLOOD GAS PO2 66 mmHg (61-120); BLOOD GAS TOTAL HGB 11.4 G/DL (12.0-16.0); CRITICAL VALUE YES; OXYGEN DEVICE VENTILATOR; TEMP CORR TO 98.6
[2017-01-11 19:56] LABS: DRAW SITE ART LINE; FIO2 100 %; STAT NO; VENT SETTINGS PC/AC 14/IP 16/
[2017-01-12] VITALS (12 sets, daily range): BP systolic 99–122; BP diastolic 54–76; PULSE 122–132; RESP 15–18; TEMP 97.8–100.2; O2SAT 90–97
[2017-01-12] MEDS: AMIODARONE INJ 450 MG in D5W (EXCEL BAG) 241 ML IV SCH ×2 (00:10→13:46)
[2017-01-12] MEDS: INSULIN ASPART SUPPLEMENTAL SCALE SQ SCH ×4 (01:04→18:00)
[2017-01-12] MEDS: HEPARIN-D5W INJ 250 ML IV SCH ×2 (02:24→21:06)
[2017-01-12] MEDS: methylPREDNISolone SOD SUCC 40 MG/1 ML VIAL IV PUSH SCH ×4 (02:25→20:59)
[2017-01-12] MEDS: SODIUM CHLORIDE 0.9% FLUSH 10 ML FLUSH IV FLUSH PRN (02:25)
[2017-01-12] MEDS: CHLORHEXIDINE GLUCONATE 2 % 1 PACK (2 CLOTHS) TOP SCH (04:00)
[2017-01-12 04:54] LABS: HEMATOCRIT 32.3 % (39.0-51.0); MEAN CORPUSCULAR HEMOGLOBIN 29.6 PG (27.0-34.0); MEAN CORPUSCULAR HGB CONC 32.8 % (32.0-36.0); PLATELET COUNT 217 TH/MM3 (150-450); RED BLOOD COUNT 3.59 MIL/MM3 (4.50-5.90); RED CELL DISTRIBUTION WIDTH 15.4 % (11.6-17.2); REVIEW FLAG FINAL; WHITE BLOOD COUNT 15.4 TH/MM3 (4.0-11.0)
[2017-01-12 05:10] LABS: APTT (PATIENT) 62.9 SEC (24.3-30.1)
[2017-01-12 05:30] LABS: MAGNESIUM 3.1 MG/DL (1.5-2.5); POTASSIUM 3.8 MEQ/L (3.5-5.1)
--- NOTE | 2017-01-12 05:37 | RADRPT ---
EXAM DATE/TIME: 01/12/2017 03:15 [facility] COMPARISON: CHEST SINGLE AP, January 11, 2017, 16:44. INDICATIONS : Shortness of breath. MEDICAL HISTORY : Hypertension. SURGICAL HISTORY : Coronary artery stent. Cardiac catheterization. ENCOUNTER: Subsequent ACUITY: 1 week PAIN SCORE: Non-responsive. LOCATION: Bilateral chest FINDINGS: The support devices remain in place. There is no evidence of pneumothorax. There continue to be scatt ered areas of bibasilar infiltrates. The heart size is stable. CONCLUSION: No significant interval change. Jordin Christianson MD on January 12, 2017 at 5:34 Board Certified Radiologist. This report was verified electronically.
[2017-01-12] MEDS: FAMOTIDINE 20 MG/2 ML VIAL IV PUSH SCH ×2 (05:48→16:54)
[2017-01-12] MEDS: PROPOFOL 1000 MG/100 ML IV SCH ×3 (05:48→21:03)
[2017-01-12] MEDS: CHLORHEXIDINE 0.12% (ORAL KIT) 15 ML CUP MT SCH ×2 (08:54→20:00)
[2017-01-12] MEDS: POLYETHYLENE GLYCOL 17 GM PKG PO SCH (08:57)
[2017-01-12] MEDS: ASPIRIN 81 MG CHEW TAB PO SCH (08:57)
[2017-01-12] MEDS: SENNOSIDES SYRUP 8.8 MG/5 ML CUP PO SCH (08:57)
[2017-01-12] MEDS: DOCUSATE SODIUM 100 MG/10 ML UDC PO SCH ×2 (08:57→20:59)
[2017-01-12] MEDS: hydrALAZINE HCL 25 MG TAB PO SCH (08:57)
[2017-01-12] MEDS: SACUBITRIL/VALSARTAN 24 MG-26 MG TAB PO SCH (08:58)
[2017-01-12] MEDS: HYDROCHLOROTHIAZIDE 25 MG TAB PO SCH (08:58)
[2017-01-12] MEDS: SODIUM CHLORIDE 0.9% FLUSH 10 ML FLUSH IV FLUSH SCH ×2 (09:00→21:00)
--- NOTE | 2017-01-12 10:53 | HHI.NPPN ---
Subjective General Problems: Anemia, Edema, Heart Disease Renal Failure: Acute History of Present Illness 71-year-old the white male the who is transferred from [facility] to [facility] due to atrial fibrillation with fast ventricular response, he was in the heart catheterization lab and became unstable has to intubated the patient has chronic kidney disease, Cardiomyopathy ejection fraction of only 15% and has severe dilated cardiomyopathy with the clot in left atrium he is on heparin drip and currently on ventilator. Additional Remarks Patient remain on the vent. and sedated, clinically same, intubated Objective Data Data 01/11/17 01/12/17 19:00 07:00 Intake Total 1662 ml 1110 ml Output Total 935 ml 800 ml Balance 727 ml 310 ml IV Total 1172 ml 725 ml Tube Feeding 400 ml 325 ml Other 90 ml 60 ml Output Urine Total 935 ml 800 ml # Bowel Movements 0 1 Vital Signs Date Time Temp Pulse Resp B/P Pulse Ox O2 Delivery O2 Flow Rate FiO2 01/12/17 08:56 93 95 01/12/17 07:00 99.9 128 15 112/76 94 122/61 01/12/17 07:00 94 Mechanical Ventilator 100 01/12/17 07:00 100 01/12/17 07:00 128 112/76 122/61 01/12/17 07:00 128 01/12/17 04:04 90 100 01/12/17 03:00 100 01/12/17 03:00 123 01/12/17 03:00 94 Mechanical Ventilator 100 01/12/17 03:00 99.8 123 18 107/61 94 01/12/17 00:49 94 100 01/11/17 23:00 116 01/11/17 23:00 99.2 116 18 121/69 94 01/11/17 23:00 94 Mechanical Ventilator 100 01/11/17 23:00 100 01/11/17 22:50 94 100 01/11/17 19:05 93 100 01/11/17 19:00 99.2 120 17 118/77 93 117/66 01/11/17 19:00 100 01/11/17 19:00 93 Mechanical Ventilator 100 01/11/17 19:00 120 01/11/17 19:00 120 118/77 117/66 01/11/17 16:27 96 100 01/11/17 16:20 91 100 01/11/17 15:15 88 100 01/11/17 15:00 129 01/11/17 15:00 90 Mechanical Ventilator 70 01/11/17 15:00 80 01/11/17 15:00 99.6 129 14 122/73 91 01/11/17 11:48 88 70 01/11/17 11:00 70 01/11/17 11:00 90 Mechanical Ventilator 70 01/11/17 11:00 118 01/11/17 11:00 99.7 118 20 89/68 90 121/64 -: 01/12/17 0420 01/12/17 0420 Physical Exam Eyes Eye Exam: Pupils Equal Throat Throat Exam: Oral Mucosa [place] & Moist Pulmonary Resp Exam: Crackles, Rhonchi, Decreased Bases, Diminished Breath Sounds Cardiology CV Exam: Arrhythmia Gastrointestinal/Abdomen GI Exam: Soft, Non-Tender, Distended Extremeties Extremities Exam: Moderate Edema, Pitting Edema, Dependent Edema Neurologic Neuro Exam: Sedated Assessment/Plan Problem List: (1) Acute renal failure Plan: Patient is off Bumex drip, urine out put is good. He has poor ejection fraction and is intubated Severe cardiomyopathy prognosis is guarded. Creatinine 3.7 BUN 154 Fio2 95% try Bumex 3 mg IV Q 12 uop 1.7 l cxr chf discussed possibility of hemodialysis and stated his wishes were against it Afib with RVR on Amiodarone Pulmonary following Pulmonary blood clots suctioned may use intermittent diuretics (2) CKD (chronic kidney disease) stage 4, GFR 15-29 ml/min Plan: Has high creatinine kidney ultrasound reviewed (3) CHF (congestive heart failure) Plan: Severe cardiomyopathy EF 15% (4) Atrial fibrillation with rapid ventricular response Plan: Has a blood clot in [place] appendage Problem Qualifiers (1) CHF (congestive heart failure): Christa Hahn MD January 12, 2017 10:53
[2017-01-12] MEDS ORDERED: BUMETANIDE INJ 1 MG/4 ML VIAL IV PUSH ONE (11:00)
--- NOTE | 2017-01-12 11:04 | HHI.CCPN ---
Subjective Remarks/Hospital Course This is a 71-year-old gentleman that presented to [facility] secondary to dyspnea and atrial fibrillation with RVR. The patient has a medical history significant for obesity and hypertension. During his hospitalization at [facility], the patient underwent an echocardiogram which showed severe systolic dysfunction with an ejection fraction of 1015 % the patient then underwent a cardiac catheterization showing significance with left circumflex 90%. The patient underwent multiple attempts of unsuccessful synchronized cardioversion. The patient also underwent medical management with beta blockers, and calcium channel blockers that were also unsuccessful. The patient was transferred to [facility] for cardiac ablation with Dr. Jimenez. The patient was scheduled for cardiac ablation, the procedure was canceled. The patient required emergent intubation and required ventilator management a VLADIMIR was performed showing a clot in the left atrial appendage. The patient was placed on IV Cardizem, and an amiodarone infusion. Critical Care medicine was consulted for management. Subjective: 01/06: Tmax 97.4. The patient remained on elevated vent settings with FiO2 of 1.0 overnight, PEEP requirements were increased to 8, to maintain a PaO2 of greater than [address] scan of the chest was obtained which noted bilateral effusions small, basilar consolidations right worse than the left, and a loculated area representing a possible pneumonia process, empyema, as well as aspiration or just loculated fluid as well as a small pericardial effusion. The patient continues on Cardizem and amiodarone infusions with a heart rate overnight 80s -115. The patient's vasopressor requirements of phenylephrine diminished to 20 mcgs. 01/07: Tmax 99.2. Yesterday the central line was placed for vasoactive medications and CVP monitoring, small hematoma noted near the right IJ area soft no compression of major vessels, with resolution of bleeding in that area. Phenylephrine was discontinued yesterday. The patient heart rate remains today [id number]. Cardizem infusion has been discontinued in the setting of EF of 10-15%. Esmolol infusion to be initiated this a.m.. Coumadin was initiated last night now placed on hold due to patient bleeding from nasopharynx and oropharynx. INR currently 1.2. Plan for CT thorax tomorrow, with possible IR intervention versus CVT consultation for possible empyema the patient will remain on heparin infusion, and transition onto Coumadin after any potential procedures to be initiated. Chest x-ray slightly improved FiO2 decreasing now 70%. Sedation vacation yesterday revealed GCS 11 T, patient alert responsive following commands. With initiation of antibiotics, leukocytosis resolved. ID consulted Dr. Gage. Blood cultures are pending. 01/08: Patient's heart rate 110-[address] scan of the chest imaging revealed fluid. Plan for thoracentesis and and studies of pleural fluid , this afternoon. The patient remains on amiodarone and heparin infusions, per cardiology. Heparin held, for thoracentesis this afternoon, and then will be resumed. The patient was maintained on CPAP trial for approximately one hour yesterday. During sedation vacation patient was alert following commands recognizing family. Plan to resume CPAP trials this afternoon post thoracentesis. 01/09: The patient underwent CT-guided thoracentesis yesterday , on the right side noted 400 cc of fluid was removed , with specimens ordered to be sent for evaluation .This morning chest x-ray performed showing almost complete opacification of the left lung. FiO2 requirements increase patient on FiO2 of 80%, O2 sat 94%. Left chest ultrasound obtained revealing no fluid. Consent obtained BAL performed, revealing emanating from the nearest previously ( patient was noted to have epistaxis with initiation of heparin on 01/06). Blood clots noted in left lung upon visualization with bronchoscopy, saline lavage applied, minimal blood clots removed. The patient was initiated on Mucomyst 10% , and pulmonology was consulted. Dr. Tasia Lama following. The patient shows no signs or evidence of bleeding actively, plan to consult ENT if signs of active bleeding become evident. Hemoglobin remains stable.The patient converted into sinus rhythm is today afternoon. Cardiology management of medications, IV amiodarone discontinued this afternoon. 01/10: Tmax 99.0. Chest x-ray shows slight improvement of left lung today. Plan for repeat bronchoscopy per Dr. Burch this a.m, and the patient continues on Mucomyst. The patient's cardiac rhythm reverted to A. fib last evening, amiodarone IV infusion reinstituted per Dr. Jimenez. 01/11: TMax 100.0. Much improved chest x-ray this morning. The patient continues in A. fib with a rate of 120, he continues on amiodarone, heparin infusion per cardiology. No evidence of active bleeding. 01/12 Patient Remains sedated with Diprivan, intubated. T:99.9. On Neosyn 15 mics , heparin and Amio drips. In Afib with RRV. Patient s/p repeat bronch with BAL yesterday by Dr. Burch and ETT replacement by Dr. Sanchez. On PC/AC with PEEP:14 , FIO2 100% Objective Vital Signs Date Time Temp Pulse Resp B/P Pulse Ox O2 Delivery O2 Flow Rate FiO2 01/12/17 08:56 93 95 01/12/17 07:00 99.9 128 15 112/76 122/61 01/12/17 07:00 Mechanical Ventilator Intake and Output 01/11/17 01/11/17 01/11/17 07:59 15:59 23:59 Intake Total 1317 ml 1662 ml Output Total 1100 ml 935 ml Balance 217 ml 727 ml Result Diagram: 01/12/17 0420 01/12/17 0420 Other Results Laboratory Tests Test 01/11/17 01/11/17 01/12/17 18:20 19:45 04:20 Blood Gas Puncture Site ART LINE ART LINE Blood Gas Patient Temperature 98.6 98.6 Blood Gas HCO3 32 mmol/L 32 mmol/L Blood Gas Base Excess 8.0 mmol/L 8.5 mmol/L Blood Gas Oxygen Saturation 90 % 91 % Arterial Blood pH 7.46 7.53 Arterial Blood Partial 46 mmHg 39 mmHg Pressure CO2 Arterial Blood Partial 68 mmHg 66 mmHg Pressure O2 Arterial Blood Oxygen Content 15.4 Vol % 14.6 Vol % Arterial Blood 1.3 % 1.5 % Carboxyhemoglobin Arterial Blood Methemoglobin 1.3 % 1.4 % Blood Gas Hemoglobin 12.1 G/DL 11.4 G/DL Oxygen Delivery Device VENTILATOR VENTILATOR Blood Gas Ventilator Setting 550/14/PEEP PC/AC 14/IP / Blood Gas Inspired Oxygen 100 % 100 % White Blood Count 15.4 TH/MM3 Red Blood Count 3.59 MIL/MM3 Hemoglobin 10.6 GM/DL Hematocrit 32.3 % Mean Corpuscular Volume 90.0 FL Mean Corpuscular Hemoglobin 29.6 PG Mean Corpuscular Hemoglobin 32.8 % Concent Red Cell Distribution Width 15.4 % Platelet Count 217 TH/MM3 Mean Platelet Volume 10.5 FL Activated Partial 62.9 SEC Thromboplast Time Sodium Level 148 MEQ/L Potassium Level 3.8 MEQ/L Chloride Level 104 MEQ/L Carbon Dioxide Level 32.0 MEQ/L Anion Gap 12 MEQ/L Blood Urea Nitrogen 154 MG/DL Creatinine 3.70 MG/DL Estimat Glomerular Filtration 16 ML/MIN Rate Random Glucose 162 MG/DL Calcium Level 8.0 MG/DL Phosphorus Level 4.8 MG/DL Magnesium Level 3.1 MG/DL Imaging Last Impressions Chest X-Ray 01/12/17599 Signed Impressions: Service Date/Time: Thursday, January 12, 2017 03:15 - CONCLUSION: No significant interval change. Jordin Christianson MD Renal Ultrasound 01/09/17 Signed Impressions: Service Date/Time: Monday, January 09, 2017 13:56 - CONCLUSION: 1. Right kidney is sonographically normal. 2. Benign-appearing 2.4 x 1.5 cm cortical cyst in the midpole of the left kidney. 3. Subcentimeter echogenic, non-shadowing foci in the midpole of the left kidney would be unusual for stones and may represent ectopic hilar fat. No hydronephrosis. 4. Urinary bladder is decompressed with a Alanis catheter. Douglas Ward MD Chest Ultrasound 01/09/17 Signed Impressions: Service Date/Time: Monday, January 09, 2017 08:18 - CONCLUSION: No left-sided pleural effusion. The abnormality in the left chest on chest radiograph is likely related to mucous plugging. When patient had a CT scan yesterday the left lung was well aerated. Edgardo Mayorga MD Chest CT 01/08/17599 Signed Impressions: Service Date/Time: Sunday, January 08, 2017 08:46 - CONCLUSION: Massive cardiomegaly with panchamber enlargement extensive coronary calcifications. Stable trace pericardial effusion. Increasing bibasilar consolidative changes with minimal bilateral pleural effusions.. Rhys Fritz MD FACR Thoracentesis 01/08/17 Signed Impressions: Service Date/Time: Sunday, January 08, 2017 16:08 - CONCLUSION: Uncomplicated CT-guided thoracentesis on the right. The left sided thoracentesis was not performed as there was no significant left pleural fluid. The abnormality on most recent chest x-ray was secondary to mucous plugging and left sided atelectasis. Edgardo Mayorga MD Objective Remarks GENERAL: Critically ill-appearing appropriately stated age, obese male sedated and intubated SKIN: Peripheral extremities cool and mottled. HEAD: Atraumatic. Normocephalic. EYES: Pupils equal and round, 3mm. No scleral icterus. No injection or drainage. ENT: No nasal bleeding or discharge. Mucous membranes pink and moist. Orotracheally intubated NECK: Trachea midline. Unable to assess JVD secondary to body habitus. Soft tissue swelling noted at RIJ site, diminishing, area soft, ecchymosis resolving CARDIOVASCULAR: Irregular rate and rhythm, Tachycardic. RESPIRATORY: Mechanical ventilation. Clear to auscultation, distant, fine rales in bases. Breath sounds equal bilaterally. GASTROINTESTINAL: Abdomen soft, obese non-tender, nondistended. MUSCULOSKELETAL: Extremities without clubbing, cyanosis, or edema. No obvious deformities. NEUROLOGICAL: RASS -2. Intubated and sedated. Follows commands moving extremities 4, Date of Insertion: January 05, 2017 Date of Insertion: January 06, 2017 Line: Central Venous Catheter Side: Right Location: Internal, Jugular A/P Assessment and Plan A. fib with RVR Left atrial appendage thrombus Cardiomyopathy Systolic CHF Acute hypoxic respiratory failure Hypertension Renal insufficiency Obesity Probable aspiration Possible multilobar [id number] Bilateral pleural effusion Hypokalemia-resolved Leukocytosis-resolved Soft tissue hematoma right neck Left lung consolidation 2/2 previous event of epistaxis, clotted blood left lung SONU Neurologic: Propofol for sedation to maintain ventilator synchrony Neurochecks per ICU protocol Daily sedation vacation Respiratory: Continue with vent support keep sat >92% On PC/AC RR 14, IP:16, IT:0.9, PEEP;14, FIo2 1005, decrease FIO2 as dennis. CXR today- bibasilar infiltrates Bronchodilators, ICU vent bundle. CXR today- Bibasilar infiltrates, 01/05 CT chest-pericardial effusion small, bilateral effusions, basilar consolidation and right greater than left Daily CPAP trials Solu-Medrol 40 mg IV Q6 Patient to continue on heparin infusion, for possible interventions then transitioning to Coumadin per Cardiology 01/08-right CT-guided thoracentesis-400 cc removed, sent for cytology and cultures s/p bronch 5.11 by- Dr. Burch CV: Wean off Neosyn monitor HR and BP keep MAP>65mmHg. On Amio and Heparin drips. 01/05 VLADIMIR( [employer])-left atrial thrombus 12/26 [facility] severe systolic dysfunction EF 1015%, mitral valve mild to moderate regurg, LAE, tricuspid Valve-mild to moderate regurg, small pericardial effusion, cardiac cath left circumflex 90% occlusion Management per Cardiology - Dr. Jimenez Renal: Nephrology following-Dr. Hahn Monitor renal function, I/O's, avoid nephrotoxins. Off Bumex drip. Cr: 3.70 today from 3.37 UO 1735 ml in 24 hrs FEN/GI: Tube feeds Nepro @40 cc Bowel regimen-add MiraLAX, and docusate suppository Zofran for nausea Heme/ID: Monitor CBC. Hemoglobin stable No active signs of bleeding. Epistaxis resolved on 01/07 01/06 urine, sputum, blood cultures-NGTD 01/06-Legionella urine antigen negative Antibiotics per ID ( Cefepime, Azithromycin) -Dr. Gage -Monitor for signs of infections ( Fever, WBC) Endocrine: -- SSI for glycemic control Prophylaxis: GI Prophylaxis Pepcid twice a day DVT Prophylaxis -- SCDs Heparin infusion per cardiology Lines: Peripheral IV's. Right IJ 01/06 Palliative care eval to asses with goals of care Discussed MANAGER FRONT at bedside. Dispo: This patient remains critically ill with one or more organ systems which are or may become a threat to life. I have spent in excess of 30 minutes discontinuously in the care and management of this patient. This time is exclusive of procedures, and includes, but is not limited to, evaluation of the patient, review of the medical record, discussions with family, consultants, nursing staff, or respiratory therapy, and documentation in the medical record. Ari Betancourt MD January 12, 2017 11:04
[2017-01-12] MEDS: CEFEPIME INJ 2,000 MG in SODIUM CHLORIDE 0.9% INJ 100 ML IV SCH (13:48)
[2017-01-12] MEDS: AZITHROMYCIN INJ 500 MG in SODIUM CHLOR 0.9% 250 ML INJ 250 ML IV SCH (13:52)
--- NOTE | 2017-01-12 14:23 | PD.CONS ---
Consult Service Palliative Care . Consult Requested By Dr. Betancourt . Primary Care Physician Unknown . Reason for Consultation a. To assist with evaluation and management of symptoms including: pain; dyspnea b. To assist medical decision maker(s) with: better understanding of current medical conditions; weighing benefits/burdens of medical treatment options; making medical treatment decisions. HPI History of Present Illness Mr. Palmer is a 71-year-old male with a known history of obesity, CHF, obstructive sleep apnea, and hypertension who presented to [facility] with dyspnea and atrial fibrillation on 12/25/16. There was no prior history of atrial fibrillation. The patient had a single hospitalizatioin 8 years ago for CHF. He is normally SOB, but remained active - - he was recently installing cellar windows. The patient and his both had URI symptoms which had developed about 2-3 weeks earlier. The couple, whose main home is [place], have a second home in [place], [place] and they drove down even when already feeling ill. They arrived around 12/11/16. Mr. Palmer grew progressively worse. There were no complaints of chest pain or palpitations. There was no productive cough. The patient normally has some swollen feet and these remained at baseline. Echocardiogram at [facility] showed severe systolic dysfunction with an ejection fraction estimated at 10-15%. The patient then went to cardiac catheterization which revealed 90% occlusion of the left circumflex artery. He underwent stenting. There were several attempts at synchronized cardioversion to convert the patient to sinus rhythm. These failed. In addition medical management with beta blockers, calcium channel blockers were also unsuccessful and cardioversion. The patient was transferred to [facility] in order to undergo cardiac ablation under the care of Dr. Jimenez. On the day of transfer from [facility] to [facility], the patient ambulated on his own with his IV pole from bed to bathroom. The ablation procedure, unfortunately, had to be canceled when VLADIMIR revealed a clot in the left atrial appendage. The patient subsequently required emergent intubation and mechanical ventilation on 01/05/17. The patient was placed on intravenous diltiazem as well as amiodarone. Critical care was consulted and the patient was admitted to the coronary intensive care unit. The patient has had a challenging ICU course well documented in the critical care notes. Challenges have included the following: * He had bilateral pleural effusions and underwent CT guided thoracentesis on with removal of 400 cc from the right side. * Anti-coagulation was recommended for the atrial appendage clot, but he has had bleeding issues on anticoagulants. When coumadin was initiated on 01/06 bleeding developed from the nasopharynx and oropharynx. * There was complete opacifation of the left lung on 01/09 with increase in FI02 requirements. Bronchoscopy and BAL was performed . Clots were removed but no active bleeding was noted. * There was a question of leak around the ET tube and this had to be replaced. * Repeat bronchoscopy /BAL was performed on 01/10/17 and bloody secretions and clots were seen bilaterally worse on the left. It was felt this likely care from the the prior upper airway bleeding. * Though there was a brief conversion to sinus rhythm , patient essentially remains in atrial fib. * Patient has chronic kidney disease and creatinines have been hovering between 3.3 and 3.7. reports that the patient also had worsening renal failure at [facility], but that this resolved. At this time patient remains in the ICU sedated, intubated, mechanically ventilated, on heparin/amidoarone drips. Pressors were stopped earlier today. Now on FIO2 of 100%. All cultures have been negative to date. Patient has been alert and able to follow commands and recognize family during sedation vacations. He has appeared uncomfomfortable from the ET tube and frustrated that he cannot communicate. Nursing pain level scores have routinely been "0." . 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 He did both desk work and field work. Though he is normally short of breath with exertion, per , he is highly functional. He drives, walks without assistive device, does chores around the house (he recently installed windows in his cellar); and manages all of his activities of daily living. There was no unexplained weight loss, cognitive changes, or decline in functional status over the year leading up to this hospitalization. In spite of feeling ill with upper respiratory symptoms, the patient drove the car down from [place] in mid December. . Review of Systems ROS Limitations: Clinical Condition (patient is intubated in the intensive care unit. Review of systems comes primarily from the medical record and from the .) Constitutional: COMPLAINS OF: Fatigue, Generalized weakness (for about 2 weeks leading up to this hospitalization), DENIES: Weight gain, Weight loss, Dizziness, Change in appetite, Night Sweats, Pain Endocrine: DENIES: Polydipsia, Polyphagia Eyes: COMPLAINS OF: Vision loss (wears reading glasses), DENIES: Diplopia, Eye pain, Double Vision Ears, nose, mouth, throat: COMPLAINS OF: Hearing loss, Epistaxis (had upper airway bleeding during this hospitalization), DENIES: Tinnitus, Throat pain, Running Nose Respiratory: COMPLAINS OF: Apneas ( reports apnea spells while sleeping), Cough (rare, intermittent, nonproductive cough), Snoring, Hemoptysis (just during this hospitalization), Shortness of breath, DENIES: Wheezing, Sputum production Cardiovascular: COMPLAINS OF: Palpitations, Dyspnea on Exertion, Lower Extremity Edema, DENIES: Chest pain, Syncope, Orthopnea, Claudication Gastrointestinal: DENIES: Black stools, Bloody stools, Constipation, Diarrhea, Nausea, Vomiting, Difficulty Swallowing, Anorexia, Dyspepsia or heartburn Genitourinary: DENIES: Urinary frequency, Hematuria, Dysuria, Decreased stream Musculoskeletal: DENIES: Joint pain, Muscle aches, Back pain, Neck pain Integumentary: DENIES: Pruritus, Non-healing sores Hematologic/Lymphatics: DENIES: Bruising Immunologic/Allergic: DENIES: Eczema Neurologic: DENIES: Abnormal gait, Headache, Localized weakness, Paresthesias, Seizures, Tremor, Poor Balance Psychiatric: DENIES: Anxiety, Confusion, Depression, Hallucinations, Agitation Past Family Social History Coded Allergies: No Known Allergies (Unverified , 01/05/17) Pt stated he had No Known Allergies Past Medical History * Hypertension * Congestive heart failure (single hospitalization for this problem approximately 8 years ago) * Morbid obesity * Obstructive sleep apnea not on C Pap (has not undergone a formal sleep study) * Atrial fibrillation (no known atrial fibrillation prior to this hospitalization) ( * CAD and hx of cath / stent 12/29/16 * Thyroid disease * Hydronephrosis * Hyperparathyroidsim s/p parathyroid surgery * Hard of hearing . Past Surgical History * Parathyroidectomy * Cardiac cath/stent . Reported Medications Prehospital medications included the following: * Aspirin 81 mg tablets; one by mouth daily * Hydralazine 25 mg tablet; one by mouth twice daily * Hydrochlorothiazide 25 mg tablets; one by mouth daily * Carvedilol 25 mg tablet 1 by mouth twice daily . Current Medications Medications (Trade) Dose Ordered Sig/Claire Route Start Time Stop Time Status Last Admin Aspirin 81 mg 81 mg DAILY PO 01/05/17 09:00 01/12/17 08:57 Sodium Chloride 500 ml @ 30 mls/hr CONTINUOUS IV 01/05/17 10:00 (NS 500 ml Inj) 500 ml @ 30 mls/hr CONTINUOUS IV 01/05/17 09:15 (Heparin Inj) 5,000 units UNSCH PRN IV 01/05/17 19:45 Heparin Sodium (Porcine) 2500 units 2,500 units UNSCH PRN IV 01/05/17 19:45 01/08/17 20:21 (Heparin-D5W Inj) 250 ml @ 0 mls/hr TITRATE IV 01/05/17 14:00 01/12/17 02:24 (Brethine Inj) 1 mg UNSCH PRN SQ 01/05/17 16:00 Famotidine 10 mg 10 mg Q12H IV PUSH 01/05/17 17:00 01/12/17 05:48 (Diprivan 1000 Mg/100ml Inj) 100 ml @ 0 mls/hr TITRATE IV 01/05/17 21:45 01/12/17 13:46 (Tears Naturale Opth Soln) 1 drop Q4H PRN EACH EYE 01/06/17 08:15 01/06/17 21:43 (Peridex 0.12% Liq) 15 ml BID@08,20 MT 01/06/17 20:00 01/12/17 08:54 (Colace Liq) 100 mg Q12HR PO 01/06/17 21:00 01/12/17 08:57 Sennosides 8.8 mg 8.8 mg DAILY PO 01/07/17 09:00 01/12/17 08:57 Cefepime HCl 2000 mg/Sodium Chloride 100 ml @ 200 mls/hr Q24H IV 01/06/17 12:00 01/12/17 13:48 (Zithromax Inj/ NS 250 ml Inj) 250 ml @ 250 mls/hr Q24H IV 01/06/17 13:00 01/12/17 13:52 (NS Flush) 2 ml UNSCH PRN IV FLUSH 01/06/17 13:15 01/12/17 02:25 (NS Flush) 2 ml BID IV FLUSH 01/06/17 21:00 01/12/17 09:00 Miscellaneous Information 1 Q361D XX 01/06/17 13:15 (Chlorhexidine 2% Cloth) Taper DAILY@04 TOP 01/07/17 04:00 01/03/18 03:59 01/12/17 04:00 (Chlorhexidine 2% Cloth) 3 pack UNSCH PRN TOP 01/06/17 13:15 (SoluMEDROL INJ) 40 mg Q6H IV PUSH 01/07/17 09:00 01/12/17 08:57 (D50w (Vial) Inj) 25 ml UNSCH PRN IV PUSH 01/09/17 07:15 Glucagon 1 mg 1 mg UNSCH PRN OTHER 01/09/17 07:15 (Cordarone Inj/ D5W ([place]) Inj) 250 ml @ 0 mls/hr CONTINUOUS IV 01/09/17 19:45 01/12/17 13:46 (Coreg) 6.25 mg Q12H PO 01/09/17 20:00 Hold 01/09/17 20:06 Insulin Aspart 1 1 Q6HR SQ 01/10/17 06:00 01/12/17 13:59 (Neosynephrine Inj/D5W 500 ml Inj) 500 ml @ 0 mls/hr TITRATE IV 01/10/17 03:30 01/10/17 02:42 (Dulcolax Supp) 10 mg DAILY PRN RECTAL 01/10/17 09:15 01/10/17 09:56 (Miralax) 17 gm DAILY PO 01/10/17 09:15 01/12/17 08:57 (Bumex Inj) 3 mg BID@,18 IV PUSH 01/12/17 18:00 . Family History Father of a myocardial infarction at approximately age 96. Mother in her 80s of uncertain cause. No other known diseases run in the family. . Substance Use Tobacco: Smoked 1ppd. Quit about 40 years ago Alcohol: Social EtOH use. No history of abuse Prescription med abuse: No known prescription drug abuse. Illicits: No known use of illicits. . Psychosocial History Mr. Palmer is from [place]. He and his have owned a home in [place], [place] for approximately 12 years but their main home remains in [place]. They frequently go back and forth. The patient is College educated. 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 The patient has been one time. He and his , Olena, have 5 children. 2 of them live in [place]. 3 remaining in [place]. . Spiritual/Cultural Factors Patient comes from a Zoroastrian tradition. He is not a regular churchgoer. believes he would appreciate a heat treating bluer visits on occasion. . Living Will: Never completed Health Care Surrogate: Never completed Durable Power of Personal Care Service Provider: Never completed Date completed: Per , has never completed an advanced directive. . Health Care Surrogate(s): No written designation of health care surrogate. . Documented care wishes: No written documentation of health care goals/preferences . Today's verbally stated goals: Patient is intubated and mechanically ventilated and uncomfortable. It is difficult to even understand if and where he hurts. Unable at this time to accurately convey goals of medical treatment. . Family/friends goals: The patient's spouse seems quite optimistic. She indicated that after speaking to the physicians she believes his kidneys will improve, that he will wean from the ventilator, and he will ultimately get home. . Ethical and Legal Issues Patient is awake and alert but given the communication difficulties on far more basic issues I have little confidence in any type of goals of care discussion we would have at this point in time. . Physical Exam Vital Signs Date Time Temp Pulse Resp B/P Pulse Ox O2 Delivery O2 Flow Rate FiO2 01/12/17 08:56 93 95 01/12/17 07:00 99.9 128 15 112/76 94 122/61 01/12/17 07:00 94 Mechanical Ventilator 100 01/12/17 07:00 100 01/12/17 07:00 128 112/76 122/61 01/12/17 07:00 128 01/12/17 04:04 90 100 01/12/17 03:00 100 01/12/17 03:00 123 01/12/17 03:00 94 Mechanical Ventilator 100 01/12/17 03:00 99.8 123 18 107/61 94 01/12/17 00:49 94 100 01/11/17 23:00 116 01/11/17 23:00 99.2 116 18 121/69 94 01/11/17 23:00 94 Mechanical Ventilator 100 01/11/17 23:00 100 01/11/17 22:50 94 100 01/11/17 19:05 93 100 01/11/17 19:00 99.2 120 17 118/77 93 117/66 01/11/17 19:00 100 01/11/17 19:00 93 Mechanical Ventilator 100 01/11/17 19:00 120 01/11/17 19:00 120 118/77 117/66 01/11/17 16:27 96 100 01/11/17 16:20 91 100 01/11/17 15:15 88 100 01/11/17 15:00 129 01/11/17 15:00 90 Mechanical Ventilator 70 01/11/17 15:00 80 01/11/17 15:00 99.6 129 14 122/73 91 . 01/11/17 01/12/17 19:00 07:00 Intake Total 1662 ml 1110 ml Output Total 935 ml 800 ml Balance 727 ml 310 ml IV Total 1172 ml 725 ml Tube Feeding 400 ml 325 ml Other 90 ml 60 ml Output Urine Total 935 ml 800 ml # Bowel Movements 0 1 . Exam CONSTITUTIONAL/GENERAL: This is an obese male, intubated, mechanically ventilated, awake and alert, in a coronary intensive care unit bed. Does not appear comfortable, but not in any acute distress. TUBES/LINES/DRAINS: Right internal jugular central line; arterial line; Alanis catheter; peripheral IV; orotracheal tube; orogastric tube; SCDs SKIN: No jaundice, rashes, or lesions. No wounds seen anteriorly. Skin temperature appropriate. Not diaphoretic. HEAD: Atraumatic. Normocephalic. EYES: Pupils equal and round and reactive. Extraocular motions intact. No scleral icterus. No injection or drainage. Fundi not examined. ENT: Hearing grossly normal. Some dried blood around nose and mouth. Throat without visible erythema, exudates, masses, or lesions though difficult to visualize due to intubations. NECK: Obese neck is difficult to examine. Trachea appears midline. Supple, nontender. No palpable thyroid enlargement or nodularity. CARDIOVASCULAR: Irregular, rapid rhythm without murmurs, gallops, or rubs. No JVD. Peripheral pulses symmetric. RESPIRATORY/CHEST: Symmetric, unlabored respirations. Clear to auscultation. Breath sounds equal bilaterally. No wheezes, rales, or rhonchi. GASTROINTESTINAL: Abdomen obese, soft, non-tender, nondistended. No hepato- splenomegaly, or palpable masses. No guarding. Bowel sounds present. GENITOURINARY: Without palpable bladder distension. Alanis catheter in place. MUSCULOSKELETAL: Extremities without clubbing, cyanosis, or edema. No joint tenderness or effusion noted. No calf tenderness. No mottling. LYMPHATICS: No palpable cervical or supraclavicular adenopathy. NEUROLOGICAL: Awake and alert. Motor and sensory grossly within normal limits. Follows basic commands. Moves all extremities. PSYCHIATRIC: No obvious anxiety/depression. no apparent hallucinations or other psychotic thought process. . Diagnostic Tests Laboratory Laboratory Tests Test 01/09/17 01/10/17 01/10/17 01/11/17 15:56 04:36 07:22 04:23 Activated Partial 63.0 SEC 64.6 SEC 52.3 SEC Thromboplast Time (24.3-30.1) (24.3-30.1) (24.3-30.1) White Blood Count 14.0 TH/MM3 15.3 TH/MM3 (4.0-11.0) (4.0-11.0) Red Blood Count 3.64 MIL/MM3 3.57 MIL/MM3 (4.50-5.90) (4.50-5.90) Hemoglobin 10.7 GM/DL 10.7 GM/DL (13.0-17.0) (13.0-17.0) Hematocrit 33.4 % 32.5 % (39.0-51.0) (39.0-51.0) Mean Corpuscular Volume 91.6 FL 91.2 FL (80.0-100.0) (80.0-100.0) Mean Corpuscular Hemoglobin 29.3 PG 30.0 PG (27.0-34.0) (27.0-34.0) Mean Corpuscular Hemoglobin 32.0 % 32.9 % Concent (32.0-36.0) (32.0-36.0) Red Cell Distribution Width 15.7 % 15.9 % (11.6-17.2) (11.6-17.2) Platelet Count 209 TH/MM3 233 TH/MM3 (150-450) (150-450) Mean Platelet Volume 10.3 FL 10.4 FL (7.0-11.0) (7.0-11.0) Neutrophils (%) (Auto) 92.4 % (16.0-70.0) Lymphocytes (%) (Auto) 2.1 % (9.0-44.0) Monocytes (%) (Auto) 5.4 % (0.0-8.0) Eosinophils (%) (Auto) 0.0 % (0.0-4.0) Basophils (%) (Auto) 0.1 % (0.0-2.0) Neutrophils # (Auto) 13.0 TH/MM3 (1.8-7.7) Lymphocytes # (Auto) 0.3 TH/MM3 (1.0-4.8) Monocytes # (Auto) 0.8 TH/MM3 (0-0.9) Eosinophils # (Auto) 0.0 TH/MM3 (0-0.4) Basophils # (Auto) 0.0 TH/MM3 (0-0.2) CBC Comment DIFF FINAL Differential Comment Sodium Level 147 MEQ/L 146 MEQ/L (136-145) (136-145) Potassium Level 3.7 MEQ/L 4.1 MEQ/L (3.5-5.1) (3.5-5.1) Chloride Level 100 MEQ/L 101 MEQ/L (98-107) (98-107) Carbon Dioxide Level 38.1 MEQ/L 35.6 MEQ/L (21.0-32.0) (21.0-32.0) Anion Gap 9 MEQ/L (5-15) 9 MEQ/L (5-15) Blood Urea Nitrogen 128 MG/DL 132 MG/DL (7-18) (7-18) Creatinine 3.67 MG/DL 3.37 MG/DL (0.60-1.30) (0.60-1.30) Estimat Glomerular Filtration 16 ML/MIN (>89) 18 ML/MIN (>89) Rate Random Glucose 162 MG/DL 157 MG/DL (74-106) (74-106) Calcium Level 8.1 MG/DL 8.2 MG/DL (8.5-10.1) (8.5-10.1) Blood Gas Puncture Site ART LINE Blood Gas Patient Temperature 98.6 Blood Gas HCO3 34 mmol/L (22-26) Blood Gas Base Excess 9.8 mmol/L (-2-2) Blood Gas Oxygen Saturation 92 % (90-100) Arterial Blood pH 7.44 (7.380-7.420) Arterial Blood Partial 52 mmHg (38-42) Pressure CO2 Arterial Blood Partial 78 mmHg Pressure O2 (61-120) Arterial Blood Oxygen Content 13.6 Vol % (12.0-20.0) Arterial Blood 1.4 % (0-4) Carboxyhemoglobin Arterial Blood Methemoglobin 1.3 % (0-2) Blood Gas Hemoglobin 10.4 G/DL (12.0-16.0) Oxygen Delivery Device VENTILATOR Blood Gas Ventilator Setting RPVC14/0.9IT/10PEEP Blood Gas Inspired Oxygen 80 % Phosphorus Level 6.1 MG/DL (2.5-4.9) Magnesium Level 3.0 MG/DL (1.5-2.5) Test 01/11/17 01/11/17 01/11/17 01/12/17 06:55 18:20 19:45 04:20 Blood Gas Puncture Site ART LINE ART LINE ART LINE Blood Gas Patient Temperature 98.6 98.6 98.6 Blood Gas HCO3 34 mmol/L 32 mmol/L 32 mmol/L (22-26) (22-26) (22-26) Blood Gas Base Excess 8.8 mmol/L 8.0 mmol/L 8.5 mmol/L (-2-2) (-2-2) (-2-2) Blood Gas Oxygen Saturation 90 % (90-100) 90 % (90-100) 91 % (90-100) Arterial Blood pH 7.42 7.46 7.53 (7.380-7.420) (7.380-7.420) (7.380-7.420) Arterial Blood Partial 52 mmHg (38-42) 46 mmHg (38-42) 39 mmHg (38-42) Pressure CO2 Arterial Blood Partial 70 mmHg 68 mmHg 66 mmHg Pressure O2 (61-120) (61-120) (61-120) Arterial Blood Oxygen Content 13.7 Vol % 15.4 Vol % 14.6 Vol % (12.0-20.0) (12.0-20.0) (12.0-20.0) Arterial Blood 1.4 % (0-4) 1.3 % (0-4) 1.5 % (0-4) Carboxyhemoglobin Arterial Blood Methemoglobin 1.2 % (0-2) 1.3 % (0-2) 1.4 % (0-2) Blood Gas Hemoglobin 10.8 G/DL 12.1 G/DL 11.4 G/DL (12.0-16.0) (12.0-16.0) (12.0-16.0) Oxygen Delivery Device VENTILATOR VENTILATOR VENTILATOR Blood Gas Ventilator Setting PRVC14/500/./PEEP 550/14/PEEP PC/AC 14/IP / Blood Gas Inspired Oxygen 70 % 100 % 100 % White Blood Count 15.4 TH/MM3 (4.0-11.0) Red Blood Count 3.59 MIL/MM3 (4.50-5.90) Hemoglobin 10.6 GM/DL (13.0-17.0) Hematocrit 32.3 % (39.0-51.0) Mean Corpuscular Volume 90.0 FL (80.0-100.0) Mean Corpuscular Hemoglobin 29.6 PG (27.0-34.0) Mean Corpuscular Hemoglobin 32.8 % Concent (32.0-36.0) Red Cell Distribution Width 15.4 % (11.6-17.2) Platelet Count 217 TH/MM3 (150-450) Mean Platelet Volume 10.5 FL (7.0-11.0) Activated Partial 62.9 SEC Thromboplast Time (24.3-30.1) Sodium Level 148 MEQ/L (136-145) Potassium Level 3.8 MEQ/L (3.5-5.1) Chloride Level 104 MEQ/L (98-107) Carbon Dioxide Level 32.0 MEQ/L (21.0-32.0) Anion Gap 12 MEQ/L (5-15) Blood Urea Nitrogen 154 MG/DL (7-18) Creatinine 3.70 MG/DL (0.60-1.30) Estimat Glomerular Filtration 16 ML/MIN (>89) Rate Random Glucose 162 MG/DL (74-106) Calcium Level 8.0 MG/DL (8.5-10.1) Phosphorus Level 4.8 MG/DL (2.5-4.9) Magnesium Level 3.1 MG/DL (1.5-2.5) . Result Diagram: 01/12/17 0420 01/12/17 0420 Microbiology Microbiology Date/Time Procedure Status Source Growth 01/09/17 09:00 Gram Stain - Final Complete Bronchial Washings Left Upper Lobe 01/09/17 09:00 Bronchial Culture - Final Complete Bronchial Washings Left Upper Lobe RARE GROWTH NORMAL RESPIRATORY NIEVES 01/09/17 09:00 Fungal Smear - Final Resulted Bronchial Washings Left Upper Lobe NO FUNGAL ELEMENTS SEEN. 01/09/17 09:00 Fungal Culture Resulted Bronchial Washings Left Upper Lobe Pending 01/09/17 09:00 Acid Fast Stain - Final Resulted Bronchial Washings Left Upper Lobe NO ACID FAST BACILLI SEEN 01/09/17 09:00 Mycobacterial Culture Resulted Bronchial Washings Left Upper Lobe Pending 01/09/17 09:00 Cancelled Bronchial Washings Bronchial . Imaging Last Impressions Chest X-Ray 01/12/17 0600 Signed Impressions: Service Date/Time: Thursday, January 12, 2017 03:15 - CONCLUSION: No significant interval change. Jordin Christianson MD Renal Ultrasound 01/09/17 0000 Signed Impressions: Service Date/Time: Monday, January 09, 2017 13:56 - CONCLUSION: 1. Right kidney is sonographically normal. 2. Benign-appearing 2.4 x 1.5 cm cortical cyst in the midpole of the left kidney. 3. Subcentimeter echogenic, non-shadowing foci in the midpole of the left kidney would be unusual for stones and may represent ectopic hilar fat. No hydronephrosis. 4. Urinary bladder is decompressed with a Alanis catheter. Douglas Ward MD Chest Ultrasound 01/09/17 0000 Signed Impressions: Service Date/Time: Monday, January 09, 2017 08:18 - CONCLUSION: No left-sided pleural effusion. The abnormality in the left chest on chest radiograph is likely related to mucous plugging. When patient had a CT scan yesterday the left lung was well aerated. Edgardo Mayorga MD Chest CT 01/08/17 0600 Signed Impressions: Service Date/Time: Sunday, January 08, 2017 08:46 - CONCLUSION: Massive cardiomegaly with panchamber enlargement extensive coronary calcifications. Stable trace pericardial effusion. Increasing bibasilar consolidative changes with minimal bilateral pleural effusions.. Rhys Fritz MD FACR Thoracentesis 01/08/17 0000 Signed Impressions: Service Date/Time: Sunday, January 08, 2017 16:08 - CONCLUSION: Uncomplicated CT-guided thoracentesis on the right. The left sided thoracentesis was not performed as there was no significant left pleural fluid. The abnormality on most recent chest x-ray was secondary to mucous plugging and left sided atelectasis. Edgardo Mayorga MD . Procedures * Intubation/mechanical ventilation * Right internal jugular central line placement 01/06/17 * Left radial arterial line 01/05/17 . Patient/Family Conference Present at Family Conference: Olena Palmer (spouse / proxy) . Family Conference Time (mins): 30 Family Conference Location: Telephone Issues Discussed: * Palliative care role, purpose, approach * Additional medical, psychosocial, and spiritual history * Patients general health, functional status, and cognitive changes in the months leading up to the current hospitalization * Family understanding of the current medical problems * Family understanding of prognosis * Patients goals of care as best understood from advance directives and/or conversations and/or values * Current medical treatment options and benefits/burdens of those options * Likely scenarios comparing ongoing aggressive care with a transition to comfort measures only * Questions answered to the best of my ability * Palliative care contact information provided . Assessment and Plan Disease Oriented Problem List: (1) Atrial fibrillation with rapid ventricular response (2) Cardiomyopathy Comment: 10-15% EF . 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 . (6) Pleural effusion Comment: s/P thoracentesis . (7) Acute renal failure (8) Obstructive sleep apnea of adult Comment: Has classic symptoms of sleep apnea but has never undergone formal sleep testing and never on CPAP. . (9) Hard of hearing Symptom Scale: (1) Pain 0-10 Scale: Unable to quantify Comment: No pre-hospital pain syndromes. Mostly now appears to be uncomfortable from ET tube. Other sources of discomfort probably include: Prolonged bedbound status; Alanis catheter; vascular access lines; SCDs; and restraints were needed. . (2) Dyspnea 0-10 Scale: Unable to quantify Comment: Dyspnea probably from a combination of factors including underlying cardiomyopathy; pleural effusion; bibasilar infiltrates. Dyspnea currently managed by mechanical ventilation. . Pertinent Non-Medical Issues Psychosocial: Patient's primary home is in [place]. He and his also own a home locally in [place]. 2 of their 5 children live in [place]. One is visiting currently. Spiritual: Patient comes from a Zoroastrian background. Not a regular churchgoer. believes he would appreciate occasional heat treating bluer visits. Legal: No completed advance directives. Ethical issues impacting care: Patient is awake and alert but having difficulty and frustrations communicating on basic issues. Reluctant to engage him in a goals of care conversation at this point because I am not sure I can trust the results. . Important Contacts Olena Palmer (spouse) [phone] . Prognosis In spite of any ear history of congestive heart failure, the patient's functional status prior to this recent hospitalization was quite good. He remained active and able to do chores around the house. On the other hand, the patient is currently critically ill. His ejection fraction alone of 10-15% comes with a poor prognosis. He now has worsening renal function. He requires anticoagulation to help prevent propagation of his left atrial appendage clot. However, he has already had bleeding complications as a result of anticoagulation. He currently has high O2 requirements. . Code Status: Full Code Plan == Code Status: FULL CODE == Decision Making: The patient is awake and alert. However, he has a very difficult time communicating very basic issues such as location, quantity, of pain. He is also easily frustrated with the communication issues. Therefore, I would not recommend that the patient be his sole decision-maker for critical decisions. At the very least, I would recommend shared decision making. Sensory is no written designation of a health care surrogate, the patient's spouse would be the appropriate proxy decision-maker under the [place] statutes. == Goals of medical treatment: The patient's reports there are no written advance directives and the patient has never had any conversations about treatments he would or would not want to have. The spouse tells me that based on conversations she has had with the physicians she remains quite optimistic. Based on what happened at [facility] where the patient's renal function improved dramatically, she expects the same to occur here. She feels that now that the ET tube has been replaced and that the clots have been removed from the lungs that the patient will be gradually weaned off the ventilator. In addition, as the patient is awake and alert she is hoping that he will be able to participate fully in decision making. == Pain: Patient has multiple sources of discomfort as noted above, but particularly seems to be bothered by the endotracheal tube. It does not appear that the patient will be extubated over the next day or 2. If possible, it will be nice to minimize sedation, but some analgesia may be necessary if the patient appears to uncomfortable. Given the patient's diminished renal function , as needed fentanyl is probably the best option if opiate analgesics are needed. == Dyspnea: Dyspnea is currently managed by mechanical ventilation. As noted above we will want to avoid sedating meds if possible. == Bowel activity: An excellent bowel regimen is currently in place. 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 == Recommend that medical team members speak frankly with regarding prognosis. She appears quite optimistic considering the patient's overall condition and I'm not sure where that optimism is coming from. She expressed reluctance to go forward with hemodialysis earlier today. I believe that reluctance was interpreted as meaning she did not think the patient would want ongoing aggressive care under the circumstances. In actuality, she believes dialysis will not be necessary as the patient's renal function improved while at [facility] and she anticipates there will be similar improvement here without dialysis. == As patient is awake and alert, recommend use of a "communication board." If we can get him better able to interact without frustration, we may be able to include him in discussions regarding goals of treatment and have confidence with his responses. == Palliative care we'll continue to follow to assist with symptom management and to further clarify goals of medical treatment as the clinical case evolves. . Thank you for the opportunity to participate in the care of Mr. Palmer. . Attestation To help prompt me to consider important information that might be impacting today's encounter and assessment, information from prior notes written by myself or my colleagues may have been "brought forward" into today's note. My signature on this note, however, is an attestation that I personally performed the exam, history, and/or decision-making noted today, and, unless otherwise indicated, the interactions with patient, family, and staff as well as the review of records all occurred today. I also attest that the listed assessment and stated plan reflect my best clinical judgment today based on the combination of historical information, prior notes, and today's exam/ interactions. When time spent is documented, it refers only to time spent today by the signer, or if indicated, combined time spent today by collaborating physician/nurse practitioner. . Diogenes Johnson MD January 12, 2017 14:23
--- NOTE | 2017-01-12 17:09 | HHI.IDPN ---
Subjective Subjective Remarks is a 71 y/o CM with PMHx of Morbid Obesity, HTN, SONU not on BiPAP, Afib with RVR. Patients reports they both had a cold recently and his was slightly worse and associated with significant cough and some low grade fever. He was driving from [place] to his 2nd home in [place] when he had worsening dyspnea and so presented to the [facility]. While at that hospital patient was noted to be in Afib with RVR. He underwent an ECHO which showed severe systolic dysfunction with EF 10-15%. He then underwent a cardiac cath at [facility] with left circumflex 90% blockage. The patient underwent multiple attempts of unsuccessful synchronized cardioversion. The patient also underwent medical management with beta blockers, and calcium channel blockers that were also unsuccessful. The patients reports he was treated with IV antibiotics and blood cultures were negative. The patient was transferred to [facility] for cardiac ablation with Dr. Jimenez. The patient was scheduled for cardiac ablation, the procedure was canceled as the patient required emergent intubation and required ventilator management. A VLADIMIR was performed showing a clot in the left atrial appendage. The patient was placed on IV Cardizem, and an amiodarone infusion. Critical Care medicine was consulted for management. ID was consulted for evaluation and Mment of leucocytosis, Pneumonia, possible empyema. Overnight events reviewed. Low grade fevers. No rash No diarrhea remains on vent, high FIO2, PEEP at 14. ? would he benefit from Rotaprone bed. UO ok. Antibiotics Cefepime IV Azithro IV Lines Line sites with no e/o infection. Past Medical History reviewed Allergies: Coded Allergies: No Known Allergies (Unverified , 01/05/17) Pt stated he had No Known Allergies Objective . Vital Signs Date Time Temp Pulse Resp B/P Pulse Ox O2 Delivery O2 Flow Rate FiO2 01/12/17 15:00 124 01/12/17 15:00 90 01/12/17 15:00 98.5 124 17 107/59 92 01/12/17 15:00 92 Mechanical Ventilator 90 01/12/17 11:00 132 01/12/17 11:00 92 Mechanical Ventilator 95 01/12/17 11:00 100.2 132 18 99/54 92 01/12/17 11:00 100 01/12/17 08:56 93 95 01/12/17 07:00 99.9 128 15 112/76 94 122/61 01/12/17 07:00 94 Mechanical Ventilator 100 01/12/17 07:00 100 01/12/17 07:00 128 112/76 122/61 01/12/17 07:00 128 01/12/17 04:04 90 100 01/12/17 03:00 100 01/12/17 03:00 123 01/12/17 03:00 94 Mechanical Ventilator 100 01/12/17 03:00 99.8 123 18 107/61 94 01/12/17 00:49 94 100 01/11/17 23:00 116 01/11/17 23:00 99.2 116 18 121/69 94 01/11/17 23:00 94 Mechanical Ventilator 100 01/11/17 23:00 100 01/11/17 22:50 94 100 01/11/17 19:05 93 100 01/11/17 19:00 99.2 120 17 118/77 93 117/66 01/11/17 19:00 100 01/11/17 19:00 93 Mechanical Ventilator 100 01/11/17 19:00 120 01/11/17 19:00 120 118/77 117/66 01/11/17 01/11/17 01/12/17 15:00 23:00 07:00 Intake Total 1662 ml 1110 ml Output Total 935 ml 800 ml Balance 727 ml 310 ml IV Total 1172 ml 725 ml Tube Feeding 400 ml 325 ml Other 90 ml 60 ml Output Urine Total 935 ml 800 ml # Bowel Movements 0 1 . Laboratory Tests Test 01/11/17 01/12/17 04:23 04:20 White Blood Count 15.3 TH/MM3 15.4 TH/MM3 Red Blood Count 3.57 MIL/MM3 3.59 MIL/MM3 Hemoglobin 10.7 GM/DL 10.6 GM/DL Hematocrit 32.5 % 32.3 % Mean Corpuscular Volume 91.2 FL 90.0 FL Mean Corpuscular Hemoglobin 30.0 PG 29.6 PG Mean Corpuscular Hemoglobin 32.9 % 32.8 % Concent Red Cell Distribution Width 15.9 % 15.4 % Platelet Count 233 TH/MM3 217 TH/MM3 Mean Platelet Volume 10.4 FL 10.5 FL Laboratory Tests Test 01/11/17 01/12/17 04:23 04:20 Sodium Level 146 MEQ/L 148 MEQ/L Potassium Level 4.1 MEQ/L 3.8 MEQ/L Chloride Level 101 MEQ/L 104 MEQ/L Carbon Dioxide Level 35.6 MEQ/L 32.0 MEQ/L Anion Gap 9 MEQ/L 12 MEQ/L Blood Urea Nitrogen 132 MG/DL 154 MG/DL Creatinine 3.37 MG/DL 3.70 MG/DL Estimat Glomerular Filtration 18 ML/MIN 16 ML/MIN Rate Random Glucose 157 MG/DL 162 MG/DL Calcium Level 8.2 MG/DL 8.0 MG/DL Phosphorus Level 6.1 MG/DL 4.8 MG/DL Magnesium Level 3.0 MG/DL 3.1 MG/DL Imaging Last Impressions Chest CT 01/08/17 0600 Signed Impressions: Service Date/Time: Sunday, January 08, 2017 08:46 - CONCLUSION: Massive cardiomegaly with panchamber enlargement extensive coronary calcifications. Stable trace pericardial effusion. Increasing bibasilar consolidative changes with minimal bilateral pleural effusions.. Rhys Fritz MD FACR Chest X-Ray 01/08/17 0000 Signed Impressions: Service Date/Time: Sunday, January 08, 2017 10:26 - CONCLUSION: Increasing left pleural effusion when compared to study earlier the same day. Rhys Fritz MD FACR Chest Ultrasound 01/07/17 0000 Signed Impressions: Service Date/Time: Saturday, January 07, 2017 16:04 - CONCLUSION: 1. Small right pleural effusion noted with estimated volume of 78 cc. Amount insufficient for safe thoracentesis with patient in lateral decubitus position. Osmany Javed MD Physical Exam GENERAL: Obese, well-developed patient, in no apparent distress. SKIN: No rashes, ecchymoses or lesions. Cool and dry. HEAD: Atraumatic. Normocephalic. No temporal or scalp tenderness. EYES: Pupils equal round and reactive. Extraocular motions intact. No scleral icterus. No injection or drainage. ENT: Intubated. NECK: Trachea midline. Supple, nontender, no meningeal signs. Large neck. CARDIOVASCULAR: HS audible. Irregular HR. RESPIRATORY: Breath sounds equal bilaterally decreased in the bases. Left side remarkable decrease in breath sounds. GASTROINTESTINAL: Abdomen soft, non-tender, nondistended. MUSCULOSKELETAL: Extremities without clubbing, cyanosis, or edema. NEUROLOGICAL: Awake and alert. Grossly non focal Psych: cooperative IV line sites with no e.o infection. Assessment & Plan Remarks Pneumonia: ? Viral followed by Secondary bacterial pneumonia, Atypical pneumonia. Possible Empyema. Afib with RVR: infection as precipitant. Ischemic Cardiomyopathy EF 10-15% SONU not on BiPAP. Acute renal failure: sepsis, contrast, meds. Hyperglycemia ? DM, ? stress Acute resp failure on vent. Acute renal failure. Recs: continue Cefepime IV Continue Azithro IV Will follow clinically Will follow cultures. Sputum cultures normal resp sandee. If fevers persist overnight repeat blood cultures (1 from line and 1 from periphery) If overnight any change in clinical condition consider adding Zyvox IV and 1 dose of Micafungin. Suspect low dose fevers are from ongoing sepsis post the two bronchoscopies he has had so far. Also ongoing aspiration given ongoing small amounts of nasal bleed. ? would he benefit from Rotaprone bed. Case d.w bedside RN. covering for me this weekend. Gema Gage MD January 12, 2017 17:09
[2017-01-12] MEDS: RESP: IPRATROPIUM 0.5 MG/2.5 ML NEB NEB SCH ×2 (17:12→21:15)
--- NOTE | 2017-01-12 18:13 | HHI.PR ---
Subjective Remarks Sedated on Vent support , FIO2 at 90%. Output was OK. CXR is showing bilateral infiltrates Objective Vital Signs Date Time Temp Pulse Resp B/P Pulse Ox O2 Delivery O2 Flow Rate FiO2 01/12/17 15:00 124 01/12/17 15:00 90 01/12/17 15:00 98.5 124 17 107/59 92 01/12/17 15:00 92 Mechanical Ventilator 90 01/12/17 11:00 132 01/12/17 11:00 92 Mechanical Ventilator 95 01/12/17 11:00 100.2 132 18 99/54 92 01/12/17 11:00 100 01/12/17 08:56 93 95 01/12/17 07:00 99.9 128 15 112/76 94 122/61 01/12/17 07:00 94 Mechanical Ventilator 100 01/12/17 07:00 100 01/12/17 07:00 128 112/76 122/61 01/12/17 07:00 128 01/12/17 04:04 90 100 01/12/17 03:00 100 01/12/17 03:00 123 01/12/17 03:00 94 Mechanical Ventilator 100 01/12/17 03:00 99.8 123 18 107/61 94 01/12/17 00:49 94 100 01/11/17 23:00 116 01/11/17 23:00 99.2 116 18 121/69 94 01/11/17 23:00 94 Mechanical Ventilator 100 01/11/17 23:00 100 01/11/17 22:50 94 100 01/11/17 19:05 93 100 01/11/17 19:00 99.2 120 17 118/77 93 117/66 01/11/17 19:00 100 01/11/17 19:00 93 Mechanical Ventilator 100 01/11/17 19:00 120 01/11/17 19:00 120 118/77 117/66 I/O 01/11/17 01/11/17 01/11/17 01/12/17 01/12/17 01/12/17 06:59 14:59 22:59 06:59 14:59 22:59 Intake Total 1317 ml 1662 ml 1110 ml Output Total 1100 ml 935 ml 800 ml Balance 217 ml 727 ml 310 ml IV Total 890 ml 1172 ml 725 ml Tube Feeding 427 ml 400 ml 325 ml Other 90 ml 60 ml Output Urine Total 1100 ml 935 ml 800 ml # Bowel Movements 0 0 1 Result Diagram: 01/12/1741901/12/17419 Objective Remarks GENERAL: This is an obese, elderly man who is intubated, sedated, assisting the ventilator. HEENT: Head is normocephalic. Pupils are sluggishly reactive. Throat is clear. There are few bloody secretions in the back. NECK: Supple with mild venous distention. Trachea is midline. CHEST: Decreased breath sounds over the left base with occasional crackles in both lung bases.Wheeze heard. HEART: The heart sounds are irregular S1-S2. No murmur. ABDOMEN: Soft. Obese without masses. No organomegaly. EXTREMITIES: Mild edema. Decreased peripheral pulses. Reflexes are not elicited. The patient is sedated. SKIN: Dry and cool. Assessment and Plan Assessment and Plan IMPRESSION 1. Hypoxic respiratory failure. 2. Left lower lobe atelectasis and possible pneumonia with aspiration. 3. Left pleural effusion resolved. 4. Cardiomyopathy and congestive heart failure. 5. Obstructive sleep apnea. 6. Diabetes mellitus. 7. Atrial fibrillation. Plan : 1. Wean FIO2 to keep sat >90. 2. Continue Diuretics. 3. Antibiotics per ID. 4. CXR ,BMP in am. 5. Nebs qid , duoneb. 6. Need to clear some fluid. Julius Burch MD January 12, 2017 18:13
[2017-01-12] MEDS: BUMETANIDE INJ 1 MG/4 ML VIAL IV PUSH SCH (18:42)
[2017-01-13] VITALS (15 sets, daily range): BP systolic 89–121; BP diastolic 55–63; PULSE 109–130; RESP 14–19; TEMP 98–99.7; O2SAT 94–98
[2017-01-13] MEDS: RESP: IPRATROPIUM 0.5 MG/2.5 ML NEB NEB SCH ×6 (01:02→19:47)
[2017-01-13] MEDS: CHLORHEXIDINE GLUCONATE 2 % 1 PACK (2 CLOTHS) TOP SCH (04:00)
[2017-01-13 04:37] LABS: BASOPHIL % 0.1 % (0.0-2.0); HEMATOCRIT 29.2 % (39.0-51.0); HEMO FLAGS DIFF FINAL; LYMPH % 3.3 % (9.0-44.0); LYMPHOCYTE # 0.6 TH/MM3 (1.0-4.8); MEAN CELL VOLUME 90.3 FL (80.0-100.0); MEAN CORPUSCULAR HEMOGLOBIN 29.8 PG (27.0-34.0); MONO % 4.9 % (0.0-8.0); NEUT % 91.7 % (16.0-70.0); PLATELET COUNT 193 TH/MM3 (150-450); RED BLOOD COUNT 3.24 MIL/MM3 (4.50-5.90); RED CELL DISTRIBUTION WIDTH 15.6 % (11.6-17.2); WHITE BLOOD COUNT 19.6 TH/MM3 (4.0-11.0)
[2017-01-13] MEDS: AMIODARONE INJ 450 MG in D5W (EXCEL BAG) 241 ML IV SCH ×3 (04:51→20:36)
[2017-01-13 04:54] LABS: APTT (PATIENT) 78.1 SEC (24.3-30.1)
[2017-01-13] MEDS: methylPREDNISolone SOD SUCC 40 MG/1 ML VIAL IV PUSH SCH ×4 (04:56→20:38)
[2017-01-13 05:00] LABS: BICARBONATE 30.1 MEQ/L (21.0-32.0); POTASSIUM 4.1 MEQ/L (3.5-5.1)
--- NOTE | 2017-01-13 05:02 | RADRPT ---
EXAM DATE/TIME: 01/13/2017 04:01 [facility] COMPARISON: CHEST SINGLE AP, January 12, 2017, 3:15. INDICATIONS : Shortness of breath, possible pulmonary disease. MEDICAL HISTORY : Hypertension. SURGICAL HISTORY : Coronary artery stent. ENCOUNTER: Subsequent ACUITY: 1 week PAIN SCORE: Non-responsive. LOCATION: Bilateral chest FINDINGS: The support devices remain in place. No significant change in the bibasilar infiltrates. Heart size i s stable. No evidence of pneumothorax. CONCLUSION: No significant interval change. Jordin Christianson MD on January 13, 2017 at 5:00 Board Certified Radiologist. This report was verified electronically.
[2017-01-13] MEDS: FAMOTIDINE 20 MG/2 ML VIAL IV PUSH SCH ×2 (05:14→16:49)
[2017-01-13] MEDS: INSULIN ASPART SUPPLEMENTAL SCALE SQ SCH ×4 (05:16→16:45)
[2017-01-13] MEDS: POLYETHYLENE GLYCOL 17 GM PKG PO SCH (09:28)
[2017-01-13] MEDS: SENNOSIDES SYRUP 8.8 MG/5 ML CUP PO SCH (09:28)
[2017-01-13] MEDS: DOCUSATE SODIUM 100 MG/10 ML UDC PO SCH ×2 (09:28→20:38)
[2017-01-13] MEDS: ASPIRIN 81 MG CHEW TAB PO SCH (09:28)
[2017-01-13] MEDS: SODIUM CHLORIDE 0.9% FLUSH 10 ML FLUSH IV FLUSH SCH ×2 (09:37→20:36)
[2017-01-13] MEDS: CHLORHEXIDINE 0.12% (ORAL KIT) 15 ML CUP MT SCH ×2 (09:37→20:35)
--- NOTE | 2017-01-13 10:31 | HHI.CCPN ---
Subjective Remarks/Hospital Course This is a 71-year-old gentleman that presented to [facility] secondary to dyspnea and atrial fibrillation with RVR. The patient has a medical history significant for obesity and hypertension. During his hospitalization at [facility], the patient underwent an echocardiogram which showed severe systolic dysfunction with an ejection fraction of 1015 % the patient then underwent a cardiac catheterization showing significance with left circumflex 90%. The patient underwent multiple attempts of unsuccessful synchronized cardioversion. The patient also underwent medical management with beta blockers, and calcium channel blockers that were also unsuccessful. The patient was transferred to [facility] for cardiac ablation with Dr. Jimenez. The patient was scheduled for cardiac ablation, the procedure was canceled. The patient required emergent intubation and required ventilator management a VLADIMIR was performed showing a clot in the left atrial appendage. The patient was placed on IV Cardizem, and an amiodarone infusion. Critical Care medicine was consulted for management. Subjective: 01/06: Tmax 97.4. The patient remained on elevated vent settings with FiO2 of 1.0 overnight, PEEP requirements were increased to 8, to maintain a PaO2 of greater than [address] scan of the chest was obtained which noted bilateral effusions small, basilar consolidations right worse than the left, and a loculated area representing a possible pneumonia process, empyema, as well as aspiration or just loculated fluid as well as a small pericardial effusion. The patient continues on Cardizem and amiodarone infusions with a heart rate overnight 80s -115. The patient's vasopressor requirements of phenylephrine diminished to 20 mcgs. 01/07: Tmax 99.2. Yesterday the central line was placed for vasoactive medications and CVP monitoring, small hematoma noted near the right IJ area soft no compression of major vessels, with resolution of bleeding in that area. Phenylephrine was discontinued yesterday. The patient heart rate remains today [id number]. Cardizem infusion has been discontinued in the setting of EF of 10-15%. Esmolol infusion to be initiated this a.m.. Coumadin was initiated last night now placed on hold due to patient bleeding from nasopharynx and oropharynx. INR currently 1.2. Plan for CT thorax tomorrow, with possible IR intervention versus CVT consultation for possible empyema the patient will remain on heparin infusion, and transition onto Coumadin after any potential procedures to be initiated. Chest x-ray slightly improved FiO2 decreasing now 70%. Sedation vacation yesterday revealed GCS 11 T, patient alert responsive following commands. With initiation of antibiotics, leukocytosis resolved. ID consulted Dr. Gage. Blood cultures are pending. 01/08: Patient's heart rate 110-[address] scan of the chest imaging revealed fluid. Plan for thoracentesis and and studies of pleural fluid , this afternoon. The patient remains on amiodarone and heparin infusions, per cardiology. Heparin held, for thoracentesis this afternoon, and then will be resumed. The patient was maintained on CPAP trial for approximately one hour yesterday. During sedation vacation patient was alert following commands recognizing family. Plan to resume CPAP trials this afternoon post thoracentesis. 01/09: The patient underwent CT-guided thoracentesis yesterday , on the right side noted 400 cc of fluid was removed , with specimens ordered to be sent for evaluation .This morning chest x-ray performed showing almost complete opacification of the left lung. FiO2 requirements increase patient on FiO2 of 80%, O2 sat 94%. Left chest ultrasound obtained revealing no fluid. Consent obtained BAL performed, revealing emanating from the nearest previously ( patient was noted to have epistaxis with initiation of heparin on 01/06). Blood clots noted in left lung upon visualization with bronchoscopy, saline lavage applied, minimal blood clots removed. The patient was initiated on Mucomyst 10% , and pulmonology was consulted. Dr. Tasia Lama following. The patient shows no signs or evidence of bleeding actively, plan to consult ENT if signs of active bleeding become evident. Hemoglobin remains stable.The patient converted into sinus rhythm is today afternoon. Cardiology management of medications, IV amiodarone discontinued this afternoon. 01/10: Tmax 99.0. Chest x-ray shows slight improvement of left lung today. Plan for repeat bronchoscopy per Dr. Burch this a.m, and the patient continues on Mucomyst. The patient's cardiac rhythm reverted to A. fib last evening, amiodarone IV infusion reinstituted per Dr. Jimenez. 01/11: TMax 100.0. Much improved chest x-ray this morning. The patient continues in A. fib with a rate of 120, he continues on amiodarone, heparin infusion per cardiology. No evidence of active bleeding. 01/12 Patient Remains sedated with Diprivan, intubated. T:99.9. On Neosyn 15 mics , heparin and Amio drips. In Afib with RRV. Patient s/p repeat bronch with BAL yesterday by Dr. Burch and ETT replacement by Dr. Sanchez. On PC/AC with PEEP:14 , FIO2 100%. 01/13: TMax 100.2. Last night the nurse reported that the patient had a small amount of epistaxis, and blood in the oropharynx noted. The area continued to bleed during the night. ENT has been consulted. Heparin has been placed on hold , ASA has been discontinued in the setting of acute renal failure. The patient continues on amiodarone infusion , heart rate 120's. Neosynephrine has been discontinued, and Levophed instituted. Creatinine noted to be 4.5. As per report , states patient does not want dialysis. The patient continues on elevated PEEP of 14. Objective Vital Signs Date Time Temp Pulse Resp B/P Pulse Ox O2 Delivery O2 Flow Rate FiO2 01/13/17 09:54 94 90 01/13/17 07:00 Mechanical Ventilator 01/13/17 07:00 98.0 122 19 105/56 90/62 Intake and Output 01/12/17 01/12/17 01/12/17 07:59 15:59 23:59 Intake Total 1110 ml 1642 ml Output Total 800 ml 680 ml Balance 310 ml 962 ml Result Diagram: 01/13/17 0415 01/13/17 0415 Imaging Last Impressions Chest X-Ray 01/12/17 0600 Signed Impressions: Service Date/Time: Thursday, January 12, 2017 03:15 - CONCLUSION: No significant interval change. Jordin Christianson MD Renal Ultrasound 01/09/17 0000 Signed Impressions: Service Date/Time: Monday, January 09, 2017 13:56 - CONCLUSION: 1. Right kidney is sonographically normal. 2. Benign-appearing 2.4 x 1.5 cm cortical cyst in the midpole of the left kidney. 3. Subcentimeter echogenic, non-shadowing foci in the midpole of the left kidney would be unusual for stones and may represent ectopic hilar fat. No hydronephrosis. 4. Urinary bladder is decompressed with a Alanis catheter. Douglas Ward MD Chest Ultrasound 01/09/17 0000 Signed Impressions: Service Date/Time: Monday, January 09, 2017 08:18 - CONCLUSION: No left-sided pleural effusion. The abnormality in the left chest on chest radiograph is likely related to mucous plugging. When patient had a CT scan yesterday the left lung was well aerated. Edgardo Mayorga MD Chest CT 01/08/17 0600 Signed Impressions: Service Date/Time: Sunday, January 08, 2017 08:46 - CONCLUSION: Massive cardiomegaly with panchamber enlargement extensive coronary calcifications. Stable trace pericardial effusion. Increasing bibasilar consolidative changes with minimal bilateral pleural effusions.. Rhys Fritz MD FACR Thoracentesis 01/08/17 0000 Signed Impressions: Service Date/Time: Sunday, January 08, 2017 16:08 - CONCLUSION: Uncomplicated CT-guided thoracentesis on the right. The left sided thoracentesis was not performed as there was no significant left pleural fluid. The abnormality on most recent chest x-ray was secondary to mucous plugging and left sided atelectasis. Edgardo Mayorga MD Objective Remarks GENERAL: Critically ill-appearing appropriately stated age, obese male awake on mild sedation, GCS 11 T SKIN: Peripheral extremities cool and mottled. HEAD: Atraumatic. Normocephalic. EYES: Pupils equal and round, 3mm. No scleral icterus. No injection or drainage. ENT: No nasal bleeding or discharge. Mucous membranes pink and moist. Orotracheally intubated NECK: Trachea midline. Unable to assess JVD secondary to body habitus. Soft tissue swelling noted at RIJ site, diminishing, area soft, ecchymosis resolving CARDIOVASCULAR: Irregular rate and rhythm, Tachycardic. RESPIRATORY: Mechanical ventilation. Clear to auscultation, distant, fine rales in bases. Breath sounds equal bilaterally. GASTROINTESTINAL: Abdomen soft, obese non-tender, nondistended. MUSCULOSKELETAL: Extremities without clubbing, cyanosis, or edema. No obvious deformities. NEUROLOGICAL: RASS -2. Intubated and sedated. Follows commands moving extremities 4, Date of Insertion: January 05, 2017 Date of Insertion: January 06, 2017 Line: Central Venous Catheter Side: Right Location: Internal, Jugular A/P Assessment and Plan A. fib with RVR Left atrial appendage thrombus Cardiomyopathy Systolic CHF Acute hypoxic respiratory failure Hypertension Renal insufficiency Obesity Probable aspiration Possible multilobar [id number] Bilateral pleural effusion Hypokalemia-resolved Leukocytosis Soft tissue hematoma right neck Left lung consolidation 2/2 previous event of epistaxis, clotted blood left lung -resolved SONU Epistaxis Neurologic: Propofol for sedation to maintain ventilator synchrony Neurochecks per ICU protocol Daily sedation vacation Respiratory: Continue with vent support keep sat >92% On PC/AC RR 14, IP:16, IT:0.9, PEEP;14, FIo2 100, decrease FIO2 as dennis. CXR today- bibasilar infiltrates Bronchodilators, ICU vent bundle. CXR today- Bibasilar infiltrates, 01/05 CT chest-pericardial effusion small, bilateral effusions, basilar consolidation and right greater than left Daily CPAP trials when clinically indicated Solu-Medrol 40 mg IV Q6 Patient to continue on heparin infusion, for possible interventions then transitioning to Coumadin per Cardiology 01/08-right CT-guided thoracentesis-400 cc removed, sent for cytology and cultures s/p bronch 01.11 by- Dr. Burch CV: Wean off Neosyn monitor HR and BP keep MAP>65mmHg. On Amiodarone 01/12- Heparin placed on hold in the setting of acute bleeding, ASA discontinued 01/05 VLADIMIR( [employer])-left atrial thrombus 12/26 [facility] severe systolic dysfunction EF 1015%, mitral valve mild to moderate regurg, LAE, tricuspid Valve-mild to moderate regurg, small pericardial effusion, cardiac cath left circumflex 90% occlusion Management per Cardiology - Dr. Jimenez Renal: Nephrology following-Dr. Hahn Monitor renal function, I/O's, avoid nephrotoxins. Off Bumex drip. Cr: 4.5 today from 3.70 UO 1735 ml in 24 hrs Patient and family declined dialysis 01/12 FEN/GI: Tube feeds Nepro @40 cc Bowel regimen-add MiraLAX, and docusate suppository Zofran for nausea Heme/ID: Monitor CBC. Hemoglobin stable 11.0 01/12 New onset Epistaxis-ENT consult to follow-up recommendations -heparin discontinued No active signs of bleeding. Epistaxis resolved on 01/07 01/06 urine, sputum, blood cultures-NGTD 01/06-Legionella urine antigen negative Antibiotics per ID ( Cefepime, Azithromycin) -Dr. Gage -Monitor for signs of infections ( Fever, WBC) Endocrine: -- SSI for glycemic control Prophylaxis: GI Prophylaxis Pepcid twice a day DVT Prophylaxis -- SCDs Heparin infusion per cardiology Lines: Peripheral IV's. Right IJ 01/06 Discussed [employer] MANAGER at bedside. Palliative care evaluation consulted to assess with goals of care. Weighing the risk benefit ratio of left atrial thrombus / possible CVA vs active ongoing hemorrhage with transfusion requirements favors holding Heparin.Discussed with Dr. Rogers , Dr. Burch who agrees with this assessment.Attempted to phone Mrs. Palmer to update her on patients medical status, unable to reach. Dispo: This patient remains critically ill with one or more organ systems which are or may become a threat to life. I have spent in excess of 30 minutes discontinuously in the care and management of this patient. This time is exclusive of procedures, and includes, but is not limited to, evaluation of the patient, review of the medical record, discussions with family, consultants, nursing staff, or respiratory therapy, and documentation in the medical record. Physician Marianne Reilly MD January 13, 2017 10:31
[2017-01-13] MEDS: PROPOFOL 1000 MG/100 ML IV SCH ×2 (10:36→20:35)
[2017-01-13] MEDS: BUMETANIDE INJ 1 MG/4 ML VIAL IV PUSH SCH ×2 (11:04→16:49)
[2017-01-13] MEDS: CEFEPIME INJ 2,000 MG in SODIUM CHLORIDE 0.9% INJ 100 ML IV SCH (11:04)
[2017-01-13 11:53] LABS: APTT (PATIENT) 66.8 SEC (24.3-30.1)
[2017-01-13] MEDS ORDERED: PHENYLEPHRINE HCL 10 MG/ML VIAL ONE ×2 (12:27→12:30)
--- NOTE | 2017-01-13 12:42 | HHI.NPPN ---
Subjective General Problems: Anemia, Edema, Heart Disease Renal Failure: Acute History of Present Illness 71-year-old the white male the who is transferred from [facility] to [facility] due to atrial fibrillation with fast ventricular response, he was in the heart catheterization lab and became unstable has to intubated the patient has chronic kidney disease, Cardiomyopathy ejection fraction of only 15% and has severe dilated cardiomyopathy with the clot in left atrium he is on heparin drip and currently on ventilator. Additional Remarks Patient remain on the vent. and sedated, clinically same, intubated Objective Data Data 01/12/17 01/13/17 19:00 07:00 Intake Total 1642 ml 1126 ml Output Total 680 ml 600 ml Balance 962 ml 526 ml IV Total 973 ml 610 ml Tube Feeding 489 ml 486 ml Other 180 ml 30 ml Output Urine Total 680 ml 600 ml # Bowel Movements 0 0 Vital Signs Date Time Temp Pulse Resp B/P Pulse Ox O2 Delivery O2 Flow Rate FiO2 01/13/17 11:00 99.1 124 19 104/58 95 114/56 01/13/17 11:00 95 Mechanical Ventilator 90 01/13/17 11:00 127 01/13/17 11:00 100 01/13/17 09:54 94 90 01/13/17 07:00 97 Mechanical Ventilator 90 01/13/17 07:00 100 01/13/17 07:00 98.0 122 19 105/56 95 90/62 01/13/17 07:00 122 01/13/17 07:00 130 105/55 104/56 01/13/17 04:20 95 90 01/13/17 03:00 97 Mechanical Ventilator 100 01/13/17 03:00 99.7 128 18 106/57 95 01/13/17 03:00 128 01/13/17 03:00 100 01/13/17 01:05 96 90 01/12/17 23:00 100 01/12/17 23:00 97 Mechanical Ventilator 100 01/12/17 23:00 122 01/12/17 23:00 98.9 122 18 113/59 97 01/12/17 22:55 95 90 01/12/17 21:10 95 90 01/12/17 19:00 93 Mechanical Ventilator 100 01/12/17 19:00 100 01/12/17 19:00 131 118/68 01/12/17 19:00 97.8 131 18 118/68 93 01/12/17 19:00 131 01/12/17 17:10 92 90 01/12/17 15:00 124 01/12/17 15:00 90 01/12/17 15:00 98.5 124 17 107/59 92 01/12/17 15:00 92 Mechanical Ventilator 90 -: 01/13/17 0415 01/13/17 0415 Microbiology 01/12/17 Aerobic Blood Culture - Preliminary, Resulted NO GROWTH IN 1 DAY 01/12/17 Anaerobic Blood Culture - Preliminary, Resulted NO GROWTH IN 1 DAY 01/12/17 Aerobic Blood Culture - Preliminary, Resulted NO GROWTH IN 1 DAY 01/12/17 Anaerobic Blood Culture - Preliminary, Resulted NO GROWTH IN 1 DAY Physical Exam Eyes Eye Exam: Pupils Equal Throat Throat Exam: Oral Mucosa [place] & Moist Pulmonary Resp Exam: Crackles, Rhonchi, Decreased Bases, Diminished Breath Sounds Cardiology CV Exam: Arrhythmia Gastrointestinal/Abdomen GI Exam: Soft, Non-Tender, Distended Extremeties Extremities Exam: Moderate Edema, Pitting Edema, Dependent Edema Neurologic Neuro Exam: Sedated Assessment/Plan Problem List: (1) Acute renal failure Plan: Patient is off Bumex drip, urine out put is good. He has poor ejection fraction and is intubated Severe cardiomyopathy prognosis is guarded. Creatinine higher BUN high family declined dialysis yesterday UOP 1.2L on Bu ex 3 mg IV q 12, on vent FiO2 90 bleeding Pulmonary following Pulmonary blood clots suctioned ENT packed nares may use intermittent diuretics (2) CKD (chronic kidney disease) stage 4, GFR 15-29 ml/min Plan: Has high creatinine kidney ultrasound reviewed (3) CHF (congestive heart failure) Plan: Severe cardiomyopathy EF 15% (4) Atrial fibrillation with rapid ventricular response Plan: Has a blood clot in LA appendage Problem Qualifiers (1) CHF (congestive heart failure): Christa Hahn MD January 13, 2017 12:42
[2017-01-13] MEDS: AZITHROMYCIN INJ 500 MG in SODIUM CHLOR 0.9% 250 ML INJ 250 ML IV SCH (13:14)
--- NOTE | 2017-01-13 14:33 | HHI.PR ---
Subjective Remarks Sedated on Vent support , FIO2 at 90%. Output was OK. CR is >4.1. CXR is showing bilateral infiltrates Had nasal packing for recurrent bleed. Objective Vital Signs Date Time Temp Pulse Resp B/P Pulse Ox O2 Delivery O2 Flow Rate FiO2 01/13/17 13:32 98 90 01/13/17 11:00 99.1 124 19 104/58 95 114/56 01/13/17 11:00 95 Mechanical Ventilator 90 01/13/17 11:00 127 01/13/17 11:00 100 01/13/17 09:54 94 90 01/13/17 07:00 97 Mechanical Ventilator 90 01/13/17 07:00 100 01/13/17 07:00 98.0 122 19 105/56 95 90/62 01/13/17 07:00 122 01/13/17 07:00 130 105/55 104/56 01/13/17 04:20 95 90 01/13/17 03:00 97 Mechanical Ventilator 100 01/13/17 03:00 99.7 128 18 106/57 95 01/13/17 03:00 128 01/13/17 03:00 100 01/13/17 01:05 96 90 01/12/17 23:00 100 01/12/17 23:00 97 Mechanical Ventilator 100 01/12/17 23:00 122 01/12/17 23:00 98.9 122 18 113/59 97 01/12/17 22:55 95 90 01/12/17 21:10 95 90 01/12/17 19:00 93 Mechanical Ventilator 100 01/12/17 19:00 100 01/12/17 19:00 131 118/68 01/12/17 19:00 97.8 131 18 118/68 93 01/12/17 19:00 131 01/12/17 17:10 92 90 01/12/17 15:00 124 01/12/17 15:00 90 01/12/17 15:00 98.5 124 17 107/59 92 01/12/17 15:00 92 Mechanical Ventilator 90 I/O 01/12/17 01/12/17 01/12/17 01/13/17 01/13/17 01/13/17 07:00 15:00 23:00 07:00 15:00 23:00 Intake Total 1110 ml 1642 ml 1126 ml Output Total 800 ml 680 ml 600 ml Balance 310 ml 962 ml 526 ml IV Total 725 ml 973 ml 610 ml Tube Feeding 325 ml 489 ml 486 ml Other 60 ml 180 ml 30 ml Output Urine Total 800 ml 680 ml 600 ml # Bowel Movements 1 0 0 Result Diagram: 01/13/1741401/13/17414 Objective Remarks GENERAL: This is an obese, elderly man who is intubated, sedated, assisting the ventilator. HEENT: Head is normocephalic. Pupils are sluggishly reactive. Nasal bleed. Throat is clear. There are few bloody secretions in the back. NECK: Supple with mild venous distention. Trachea is midline. CHEST: Decreased breath sounds over the left base with occasional crackles in both lung bases.Wheeze heard. HEART: The heart sounds are irregular S1-S2. No murmur. ABDOMEN: Soft. Obese without masses. No organomegaly. EXTREMITIES: Mild edema. Decreased peripheral pulses. Reflexes are not elicited. The patient is sedated. SKIN: Dry and cool. Assessment and Plan Assessment and Plan IMPRESSION 1. Hypoxic respiratory failure. 2. Left lower lobe atelectasis and possible pneumonia with aspiration. 3. Left pleural effusion resolved. 4. Cardiomyopathy and congestive heart failure. 5. Obstructive sleep apnea. 6. Diabetes mellitus. 7. Atrial fibrillation. 8. Nasopharyngeal bleed Plan : 1. Wean FIO2 to keep sat >90. 2. Continue Diuretics. 3. Antibiotics per ID. 4. CXR ,CBC BMP in am. 5. Nebs qid , duoneb. 6. Change anticoagulant to PO. 7. D/W Julius Chen MD January 13, 2017 14:33
--- NOTE | 2017-01-13 15:38 | PD.CARD.PN ---
Subjective Subjective Remarks Comatose on ventilator. Objective Medications Current Medications Medications (Trade) Dose Ordered Sig/Claire Route Start Time Stop Time Status Last Admin Sodium Chloride 500 ml @ 30 mls/hr CONTINUOUS IV 01/05/17 10:00 (NS 500 ml Inj) 500 ml @ 30 mls/hr CONTINUOUS IV 01/05/17 09:15 (Heparin Inj) 5,000 units UNSCH PRN IV 01/05/17 19:45 Heparin Sodium (Porcine) 2500 units 2,500 units UNSCH PRN IV 01/05/17 19:45 01/08/17 20:21 (Heparin-D5W Inj) 250 ml @ 0 mls/hr TITRATE IV 01/05/17 14:00 01/12/17 21:06 (Brethine Inj) 1 mg UNSCH PRN SQ 01/05/17 16:00 Famotidine 10 mg 10 mg Q12H IV PUSH 01/05/17 17:00 01/13/17 05:14 (Diprivan 1000 Mg/100ml Inj) 100 ml @ 0 mls/hr TITRATE IV 01/05/17 21:45 01/13/17 10:36 (Tears Naturale Opth Soln) 1 drop Q4H PRN EACH EYE 01/06/17 08:15 01/06/17 21:43 (Peridex 0.12% Liq) 15 ml BID@08,20 MT 01/06/17 20:00 01/13/17 09:37 (Colace Liq) 100 mg Q12HR PO 01/06/17 21:00 01/13/17 09:28 Sennosides 8.8 mg 8.8 mg DAILY PO 01/07/17 09:00 01/13/17 09:28 Cefepime HCl 2000 mg/Sodium Chloride 100 ml @ 200 mls/hr Q24H IV 01/06/17 12:00 01/13/17 11:04 (Zithromax Inj/ NS 250 ml Inj) 250 ml @ 250 mls/hr Q24H IV 01/06/17 13:00 01/13/17 13:14 (NS Flush) 2 ml UNSCH PRN IV FLUSH 01/06/17 13:15 01/12/17 02:25 (NS Flush) 2 ml BID IV FLUSH 01/06/17 21:00 01/13/17 09:37 Miscellaneous Information 1 Q361D XX 01/06/17 13:15 (Chlorhexidine 2% Cloth) Taper DAILY@04 TOP 01/07/17 04:00 01/03/18 03:59 01/12/17 04:00 (Chlorhexidine 2% Cloth) 3 pack UNSCH PRN TOP 01/06/17 13:15 (SoluMEDROL INJ) 40 mg Q6H IV PUSH 01/07/17 09:00 01/13/17 09:30 (D50w (Vial) Inj) 25 ml UNSCH PRN IV PUSH 01/09/17 07:15 Glucagon 1 mg 1 mg UNSCH PRN OTHER 01/09/17 07:15 (Cordarone Inj/ D5W ([place]) Inj) 250 ml @ 0 mls/hr CONTINUOUS IV 01/09/17 19:45 01/13/17 06:27 (Coreg) 6.25 mg Q12H PO 01/09/17 20:00 Hold 01/09/17 20:06 Insulin Aspart 1 1 Q6HR SQ 01/10/17 06:00 01/13/17 12:00 (Neosynephrine Inj/D5W 500 ml Inj) 500 ml @ 0 mls/hr TITRATE IV 01/10/17 03:30 01/10/17 02:42 (Dulcolax Supp) 10 mg DAILY PRN RECTAL 01/10/17 09:15 01/10/17 09:56 (Miralax) 17 gm DAILY PO 01/10/17 09:15 01/13/17 09:28 (Bumex Inj) 3 mg BID@,18 IV PUSH 01/12/17 18:00 01/13/17 11:04 Vital Signs / I&O Vital Signs Date Time Temp Pulse Resp B/P Pulse Ox O2 Delivery O2 Flow Rate FiO2 01/13/17 14:32 97 75 01/13/17 13:32 98 90 01/13/17 11:00 99.1 124 19 104/58 95 114/56 01/13/17 11:00 95 Mechanical Ventilator 90 01/13/17 11:00 127 01/13/17 11:00 100 01/13/17 09:54 94 90 01/13/17 07:00 97 Mechanical Ventilator 90 01/13/17 07:00 100 01/13/17 07:00 98.0 122 19 105/56 95 90/62 01/13/17 07:00 122 01/13/17 07:00 130 105/55 104/56 01/13/17 04:20 95 90 01/13/17 03:00 97 Mechanical Ventilator 100 01/13/17 03:00 99.7 128 18 106/57 95 01/13/17 03:00 128 01/13/17 03:00 100 01/13/17 01:05 96 90 01/12/17 23:00 100 01/12/17 23:00 97 Mechanical Ventilator 100 01/12/17 23:00 122 01/12/17 23:00 98.9 122 18 113/59 97 01/12/17 22:55 95 90 01/12/17 21:10 95 90 01/12/17 19:00 93 Mechanical Ventilator 100 01/12/17 19:00 100 01/12/17 19:00 131 118/68 01/12/17 19:00 97.8 131 18 118/68 93 01/12/17 19:00 131 01/12/17 17:10 92 90 I/O 01/12/17 01/12/17 01/12/17 01/13/17 01/13/17 01/13/17 07:00 15:00 23:00 07:00 15:00 23:00 Intake Total 1110 ml 1642 ml 1126 ml Output Total 800 ml 680 ml 600 ml Balance 310 ml 962 ml 526 ml IV Total 725 ml 973 ml 610 ml Tube Feeding 325 ml 489 ml 486 ml Other 60 ml 180 ml 30 ml Output Urine Total 800 ml 680 ml 600 ml # Bowel Movements 1 0 0 Physical Exam HEENTN: Intubated. Lungs: Decreased breath sounds L>R CV: Rapid rate with PATRICK No gallops. Abd: Decreased bowel sounds Ext: No edema. Laboratory Laboratory Tests Test 01/13/17 01/13/17 04:15 11:18 White Blood Count 19.6 TH/MM3 Red Blood Count 3.24 MIL/MM3 Hemoglobin 9.6 GM/DL Hematocrit 29.2 % Mean Corpuscular Volume 90.3 FL Mean Corpuscular Hemoglobin 29.8 PG Mean Corpuscular Hemoglobin 33.0 % Concent Red Cell Distribution Width 15.6 % Platelet Count 193 TH/MM3 Mean Platelet Volume 10.7 FL Neutrophils (%) (Auto) 91.7 % Lymphocytes (%) (Auto) 3.3 % Monocytes (%) (Auto) 4.9 % Eosinophils (%) (Auto) 0.0 % Basophils (%) (Auto) 0.1 % Neutrophils # (Auto) 18.0 TH/MM3 Lymphocytes # (Auto) 0.6 TH/MM3 Monocytes # (Auto) 1.0 TH/MM3 Eosinophils # (Auto) 0.0 TH/MM3 Basophils # (Auto) 0.0 TH/MM3 CBC Comment DIFF FINAL Differential Comment Activated Partial 78.1 SEC 66.8 SEC Thromboplast Time Sodium Level 148 MEQ/L Potassium Level 4.1 MEQ/L Chloride Level 104 MEQ/L Carbon Dioxide Level 30.1 MEQ/L Anion Gap 14 MEQ/L Blood Urea Nitrogen 188 MG/DL Creatinine 4.50 MG/DL Estimat Glomerular Filtration 13 ML/MIN Rate Random Glucose 151 MG/DL Calcium Level 8.1 MG/DL Phosphorus Level 6.1 MG/DL Imaging Last 48 hours Impressions Chest X-Ray 01/13/17 0000 Signed Impressions: Service Date/Time: Friday, January 13, 2017 04:01 - CONCLUSION: No significant interval change. Jordin Christianson MD Chest X-Ray 01/12/17 0600 Signed Impressions: Service Date/Time: Thursday, January 12, 2017 03:15 - CONCLUSION: No significant interval change. Jordin Christianson MD Assessment and Plan Assessment and Plan Remains in AF with RVR. Head Refrigeration Engineer has stopped heparin because of active ongoing and uncontrolled bleeding. We really have no choice at this point but to hold anticoagulants with unremitting bleeding in the setting of uremia and aspirin use. He continues to be in ARDS with no improvement in CXR. He has progressive renal failure refusing dialysis with BUN nearing 200. He continues to be in shock with MAP of 64 mmHg. I checked with the machine woodworking sander about switching Blake to Levophed as he could use the positive ionotropic effect with his 15% EF. I asked the machine woodworking sander to manage the pressors as she is vastly more expert than I am in that regard. At this point bleeding and ARDS are his critical issues. Will ask renal if we can decrease diuretics as he needs some preload with 15% EF. I am very reluctant to use digoxin for rate Rx with advanced renal failure so will continue amioderone. Avoid cardioversion with NETTIE clot. Prognosis is dismal. Consider hospice. Augustina Ham MD January 13, 2017 15:38
[2017-01-13] MEDS ORDERED: NOREPINEPHRINE-DEXTROSE DRIP 250 ML IV SCH (17:45)
[2017-01-13] MEDS ORDERED: TERBUTALINE INJ 1 MG/ML AMP SQ PRN (17:45)
[2017-01-14] VITALS (14 sets, daily range): BP systolic 103–163; BP diastolic 54–82; PULSE 105–139; RESP 14–15; TEMP 98–99.1; O2SAT 92–97
[2017-01-14] MEDS: RESP: IPRATROPIUM 0.5 MG/2.5 ML NEB NEB SCH ×6 (00:50→20:46)
[2017-01-14] MEDS: PROPOFOL 1000 MG/100 ML IV SCH ×4 (01:22→19:55)
[2017-01-14] MEDS: methylPREDNISolone SOD SUCC 40 MG/1 ML VIAL IV PUSH SCH ×4 (03:06→19:56)
[2017-01-14] MEDS: CHLORHEXIDINE GLUCONATE 2 % 1 PACK (2 CLOTHS) TOP SCH (04:00)
--- NOTE | 2017-01-14 04:46 | RADRPT ---
EXAM DATE/TIME: 01/14/2017 04:04 [place] COMPARISON: CHEST SINGLE AP, January 13, 2017, 4:01. INDICATIONS : Shortness of breath, possible pulmonary disease. MEDICAL HISTORY : Hypertension. SURGICAL HISTORY : Coronary artery stent. ENCOUNTER: Subsequent ACUITY: 1 week PAIN SCORE: Non-responsive. LOCATION: Bilateral chest FINDINGS: The support devices remain in place. There is no pneumothorax. There continues to be bibasilar infilt rates which are mildly improved compared to the prior study. The heart size is stable. The bony struc tures are stable. CONCLUSION: Mild improvement in the bibasilar pulmonary infiltrates. Jordin Christianson MD on January 14, 2017 at 4:44 Board Certified Radiologist. This report was verified electronically.
[2017-01-14] MEDS: INSULIN ASPART SUPPLEMENTAL SCALE SQ SCH ×4 (05:25→18:00)
[2017-01-14 05:37] LABS: MEAN CELL VOLUME 90.5 FL (80.0-100.0); MEAN CORPUSCULAR HEMOGLOBIN 29.3 PG (27.0-34.0); MEAN CORPUSCULAR HGB CONC 32.4 % (32.0-36.0); PLATELET COUNT 180 TH/MM3 (150-450); RED BLOOD COUNT 3.09 MIL/MM3 (4.50-5.90); RED CELL DISTRIBUTION WIDTH 15.3 % (11.6-17.2); REVIEW FLAG FINAL; WHITE BLOOD COUNT 28.9 TH/MM3 (4.0-11.0)
[2017-01-14 05:59] LABS: MAGNESIUM 3.5 MG/DL (1.5-2.5); POTASSIUM 4.2 MEQ/L (3.5-5.1)
[2017-01-14] MEDS: FAMOTIDINE 20 MG/2 ML VIAL IV PUSH SCH ×2 (06:01→17:00)
[2017-01-14 06:02] LABS: APTT (PATIENT) 22.7 SEC (24.3-30.1)
[2017-01-14 06:20] LABS: BLOOD GAS CARBOXYHEMOGLOBIN 1.6 % (0-4); BLOOD GAS HCO3 25 mmol/L (22-26); BLOOD GAS METHEMOGLOBIN 1.4 % (0-2); BLOOD GAS O2 HGB SATURATION 92 % (90-100); BLOOD GAS OXYGEN CONTENT 11.7 Vol % (12.0-20.0); BLOOD GAS PCO2 32 mmHg (38-42); BLOOD GAS PO2 71 mmHg (61-120); CRITICAL VALUE NO; DRAW SITE ART LINE; FIO2 65 %; OXYGEN DEVICE VENTILATOR; TEMP CORR TO 98.6; VENT SETTINGS PC/AC
[2017-01-14 06:21] LABS: STAT NO
[2017-01-14] MEDS: CHLORHEXIDINE 0.12% (ORAL KIT) 15 ML CUP MT SCH ×2 (08:04→19:56)
[2017-01-14] MEDS: POLYETHYLENE GLYCOL 17 GM PKG PO SCH (08:04)
[2017-01-14] MEDS: SENNOSIDES SYRUP 8.8 MG/5 ML CUP PO SCH (08:04)
[2017-01-14] MEDS: DOCUSATE SODIUM 100 MG/10 ML UDC PO SCH ×2 (08:04→19:55)
[2017-01-14] MEDS: BUMETANIDE INJ 1 MG/4 ML VIAL IV PUSH SCH (08:05)
[2017-01-14] MEDS: SODIUM CHLORIDE 0.9% FLUSH 10 ML FLUSH IV FLUSH SCH ×2 (08:06→19:55)
--- NOTE | 2017-01-14 08:19 | HHI.CCPN ---
Subjective Remarks/Hospital Course This is a 71-year-old gentleman that presented to [facility] secondary to dyspnea and atrial fibrillation with RVR. The patient has a medical history significant for obesity and hypertension. During his hospitalization at [facility], the patient underwent an echocardiogram which showed severe systolic dysfunction with an ejection fraction of 1015 % the patient then underwent a cardiac catheterization showing significance with left circumflex 90%. The patient underwent multiple attempts of unsuccessful synchronized cardioversion. The patient also underwent medical management with beta blockers, and calcium channel blockers that were also unsuccessful. The patient was transferred to [facility] for cardiac ablation with Dr. Jimenez. The patient was scheduled for cardiac ablation, the procedure was canceled. The patient required emergent intubation and required ventilator management a VLADIMIR was performed showing a clot in the left atrial appendage. The patient was placed on IV Cardizem, and an amiodarone infusion. Critical Care medicine was consulted for management. Subjective: 01/06: Tmax 97.4. The patient remained on elevated vent settings with FiO2 of 1.0 overnight, PEEP requirements were increased to 8, to maintain a PaO2 of greater than [address] scan of the chest was obtained which noted bilateral effusions small, basilar consolidations right worse than the left, and a loculated area representing a possible pneumonia process, empyema, as well as aspiration or just loculated fluid as well as a small pericardial effusion. The patient continues on Cardizem and amiodarone infusions with a heart rate overnight 80s -115. The patient's vasopressor requirements of phenylephrine diminished to 20 mcgs. 01/07: Tmax 99.2. Yesterday the central line was placed for vasoactive medications and CVP monitoring, small hematoma noted near the right IJ area soft no compression of major vessels, with resolution of bleeding in that area. Phenylephrine was discontinued yesterday. The patient heart rate remains today [id number]. Cardizem infusion has been discontinued in the setting of EF of 10-15%. Esmolol infusion to be initiated this a.m.. Coumadin was initiated last night now placed on hold due to patient bleeding from nasopharynx and oropharynx. INR currently 1.2. Plan for CT thorax tomorrow, with possible IR intervention versus CVT consultation for possible empyema the patient will remain on heparin infusion, and transition onto Coumadin after any potential procedures to be initiated. Chest x-ray slightly improved FiO2 decreasing now 70%. Sedation vacation yesterday revealed GCS 11 T, patient alert responsive following commands. With initiation of antibiotics, leukocytosis resolved. ID consulted Dr. Gage. Blood cultures are pending. 01/08: Patient's heart rate 110-[address] scan of the chest imaging revealed fluid. Plan for thoracentesis and and studies of pleural fluid , this afternoon. The patient remains on amiodarone and heparin infusions, per cardiology. Heparin held, for thoracentesis this afternoon, and then will be resumed. The patient was maintained on CPAP trial for approximately one hour yesterday. During sedation vacation patient was alert following commands recognizing family. Plan to resume CPAP trials this afternoon post thoracentesis. 01/09: The patient underwent CT-guided thoracentesis yesterday , on the right side noted 400 cc of fluid was removed , with specimens ordered to be sent for evaluation .This morning chest x-ray performed showing almost complete opacification of the left lung. FiO2 requirements increase patient on FiO2 of 80%, O2 sat 94%. Left chest ultrasound obtained revealing no fluid. Consent obtained BAL performed, revealing emanating from the nearest previously ( patient was noted to have epistaxis with initiation of heparin on 01/06). Blood clots noted in left lung upon visualization with bronchoscopy, saline lavage applied, minimal blood clots removed. The patient was initiated on Mucomyst 10% , and pulmonology was consulted. Dr. Tasia Lama following. The patient shows no signs or evidence of bleeding actively, plan to consult ENT if signs of active bleeding become evident. Hemoglobin remains stable.The patient converted into sinus rhythm is today afternoon. Cardiology management of medications, IV amiodarone discontinued this afternoon. 01/10: Tmax 99.0. Chest x-ray shows slight improvement of left lung today. Plan for repeat bronchoscopy per Dr. Burch this a.m, and the patient continues on Mucomyst. The patient's cardiac rhythm reverted to A. fib last evening, amiodarone IV infusion reinstituted per Dr. Jimenez. 01/11: TMax 100.0. Much improved chest x-ray this morning. The patient continues in A. fib with a rate of 120, he continues on amiodarone, heparin infusion per cardiology. No evidence of active bleeding. 01/12 Patient Remains sedated with Diprivan, intubated. T:99.9. On Neosyn 15 mics , heparin and Amio drips. In Afib with RRV. Patient s/p repeat bronch with BAL yesterday by Dr. Burch and ETT replacement by Dr. Sanchez. On PC/AC with PEEP:14 , FIO2 100%. 01/13: TMax 100.2. Last night the nurse reported that the patient had a small amount of epistaxis, and blood in the oropharynx noted. The area continued to bleed during the night. ENT has been consulted. Heparin has been placed on hold , ASA has been discontinued in the setting of acute renal failure. The patient continues on amiodarone infusion , heart rate 120's. Neosynephrine has been discontinued, and Levophed instituted. Creatinine noted to be 4.5. As per report , states patient does not want dialysis. The patient continues on elevated PEEP of 14. 01/14: Heparin was discontinued yesterday in the setting of continued bleeding in the nasal/ oropharyngeal region. ENT was consulted and nasal packing was applied. During the night the patient still had small noted amount of bleeding from the oropharyngeal area plan today for oropharyngeal packing. Hgb 9, will transfuse .The patient was placed on norepinephrine for currently at 1-2 mcgs per minute. PEEP has been decreased to 12, with adequate oxygenation a PaO2 of 71. Objective Vital Signs Date Time Temp Pulse Resp B/P Pulse Ox O2 Delivery O2 Flow Rate FiO2 01/14/17 07:24 129 01/14/17 07:24 93 Mechanical Ventilator 65 01/14/17 07:24 99.0 14 115/64 103/54 Intake and Output 01/13/17 01/13/17 01/14/17 08:00 16:00 00:00 Intake Total 1126 ml 2528 ml Output Total 600 ml 450 ml Balance 526 ml 2078 ml Result Diagram: 01/14/17 0505 01/14/17 0505 Other Results Laboratory Tests Test 01/14/17 06:09 Blood Gas Puncture Site ART LINE Blood Gas Patient Temperature 98.6 Blood Gas HCO3 25 mmol/L (22-26) Blood Gas Base Excess 2.0 mmol/L (-2-2) Blood Gas Oxygen Saturation 92 % (90-100) Arterial Blood pH 7.50 (7.380-7.420) Arterial Blood Partial 32 mmHg (38-42) Pressure CO2 Arterial Blood Partial 71 mmHg Pressure O2 (61-120) Arterial Blood Oxygen Content 11.7 Vol % (12.0-20.0) Arterial Blood 1.6 % (0-4) Carboxyhemoglobin Arterial Blood Methemoglobin 1.4 % (0-2) Blood Gas Hemoglobin 9.0 G/DL (12.0-16.0) Oxygen Delivery Device VENTILATOR Blood Gas Ventilator Setting PC/AC Blood Gas Inspired Oxygen 65 % Imaging Last Impressions Chest X-Ray 01/12/17 06 Signed Impressions: Service Date/Time: Thursday, January 12, 2017 03:15 - CONCLUSION: No significant interval change. Jordin Christianson MD Renal Ultrasound 01/09/17 Signed Impressions: Service Date/Time: Monday, January 09, 2017 13:56 - CONCLUSION: 1. Right kidney is sonographically normal. 2. Benign-appearing 2.4 x 1.5 cm cortical cyst in the midpole of the left kidney. 3. Subcentimeter echogenic, non-shadowing foci in the midpole of the left kidney would be unusual for stones and may represent ectopic hilar fat. No hydronephrosis. 4. Urinary bladder is decompressed with a Alanis catheter. Douglas Ward MD Chest Ultrasound 01/09/17 Signed Impressions: Service Date/Time: Monday, January 09, 2017 08:18 - CONCLUSION: No left-sided pleural effusion. The abnormality in the left chest on chest radiograph is likely related to mucous plugging. When patient had a CT scan yesterday the left lung was well aerated. Edgardo Mayorga MD Chest CT 01/08/17 06 Signed Impressions: Service Date/Time: Sunday, January 08, 2017 08:46 - CONCLUSION: Massive cardiomegaly with panchamber enlargement extensive coronary calcifications. Stable trace pericardial effusion. Increasing bibasilar consolidative changes with minimal bilateral pleural effusions.. Rhys Fritz MD FACR Thoracentesis 01/08/17 Signed Impressions: Service Date/Time: Sunday, January 08, 2017 16:08 - CONCLUSION: Uncomplicated CT-guided thoracentesis on the right. The left sided thoracentesis was not performed as there was no significant left pleural fluid. The abnormality on most recent chest x-ray was secondary to mucous plugging and left sided atelectasis. Edgardo Mayorga MD Objective Remarks GENERAL: Critically ill-appearing appropriately stated age, obese male sedated SKIN: Peripheral extremities cool and mottled. HEAD: Atraumatic. Normocephalic. EYES: Pupils equal and round, 3mm. No scleral icterus. No injection or drainage. ENT: No nasal bleeding or discharge. Mucous membranes pink and moist. Orotracheally intubated. NECK: Trachea midline. Unable to assess JVD secondary to body habitus. At [facility] site, soft tissue edema resolved in neck region, area soft, ecchymotic bruising noted. CARDIOVASCULAR: Irregular rate and rhythm, Tachycardic. RESPIRATORY: Mechanical ventilation. Clear to auscultation, decreased in bases. Breath sounds equal bilaterally. High vent requirements GASTROINTESTINAL: Abdomen soft, obese non-tender, nondistended. MUSCULOSKELETAL: Extremities without clubbing, cyanosis, or edema. No obvious deformities. NEUROLOGICAL: Intubated and sedated. Follows commands moving extremities 4, when off sedation. Urinary Catheter: Yes Date of Insertion: January 05, 2017 Date of Insertion: January 06, 2017 Line: Central Venous Catheter Side: Right Location: Internal, Jugular A/P Assessment and Plan A. fib with RVR Left atrial appendage thrombus Cardiomyopathy Systolic CHF Acute hypoxic respiratory failure Hypertension Renal insufficiency Obesity Probable aspiration Possible multilobar [id number] Bilateral pleural effusion Hypokalemia-resolved Leukocytosis Soft tissue hematoma right neck Left lung consolidation 2/2 previous event of epistaxis, clotted blood left lung -resolved SONU Epistaxis Cardiorenal syndrome Neurologic: Propofol for sedation to maintain ventilator synchrony Neurochecks per ICU protocol Daily sedation vacation when clinically appropriate, patient currently on high ventilator requirements PEEP 12 unable to perform Respiratory: Continue with vent support keep sat >92% On PC/AC RR 14, IP:16, IT:0.9, PEEP;14, FIo2 .40 decrease FIO2 as dennis. CXR today- bibasilar infiltrates Bronchodilators, ICU vent bundle. CXR today- Bibasilar infiltrates, 01/05 CT chest-pericardial effusion small, bilateral effusions, basilar consolidation and right greater than left Daily CPAP trials when clinically indicated Solu-Medrol 40 mg IV Q6 01/08-right CT-guided thoracentesis-400 cc removed, sent for cytology and cultures s/p bronch . by- Dr. Burch CV: Wean off Neosyn (01/13)monitor HR and BP keep MAP>65mmHg. On Amiodarone, norepinephrine infusions 01/13- Heparin placed on hold in the setting of acute bleeding, ASA discontinued 01/05 VLADIMIR( Gear Keeper)-left atrial thrombus 12/26 [facility] severe systolic dysfunction EF 1015%, mitral valve mild to moderate regurg, LAE, tricuspid Valve-mild to moderate regurg, small pericardial effusion, cardiac cath left circumflex 90% occlusion Management per Cardiology - Dr. Jimenez Renal: Nephrology following-Dr. Hahn Monitor renal function, I/O's, avoid nephrotoxins. Off Bumex drip. Cr: 4.5 -> 5.4 today from 3.70 UO 1280 ml in 24 hrs Patient and family declined dialysis 01/12 FEN/GI: Tube feeds Nepro @40 cc, no residuals noted Bowel regimen-add MiraLAX, and docusate suppository Zofran for nausea Heme/ID: Monitor CBC. Hemoglobin stable 9, but in the setting of small bleeding overnight ,will transfuse 1 PRBC today F/U CBC 01/12 New onset Epistaxis-ENT consulted-nasal packing applied, heparin discontinued No active signs of bleeding. Epistaxis resolved on 01/07 01/06 urine, sputum, blood cultures-NGTD 01/06-Legionella urine antigen negative Antibiotics per ID ( Cefepime, Azithromycin) -Dr. Gage -Monitor for signs of infections ( Fever, WBC) Endocrine: -- SSI for glycemic control Prophylaxis: GI Prophylaxis Pepcid twice a day DVT Prophylaxis -- SCDs Heparin discontinued 01/13 Lines: Peripheral IV's. Right IJ 01/06 Dispo: I discussed with Ms. Palmer and daughter at bedside the patient's medical status and guarded prognosis.She requests at this time to continue aggressive therapy and is now considering possble hemodialysis. Discussed NOZZLE TENDER at bedside. Palliative care evaluation consulted to assess with goals of care. Weighing the risk benefit ratio of left atrial thrombus / possible CVA vs active ongoing hemorrhage with transfusion requirements favors holding Heparin. The patient will receive 1 unit of packed red blood cells today, and continued monitoring CBC. Dispo: This patient remains critically ill with one or more organ systems which are or may become a threat to life. I have spent in excess of 30 minutes discontinuously in the care and management of this patient. This time is exclusive of procedures, and includes, but is not limited to, evaluation of the patient, review of the medical record, discussions with family, consultants, nursing staff, or respiratory therapy, and documentation in the medical record. Physician Marianne Reilly MD January 14, 2017 08:19
[2017-01-14] MEDS: CEFEPIME INJ 2,000 MG in SODIUM CHLORIDE 0.9% INJ 100 ML IV SCH (10:46)
[2017-01-14] MEDS ORDERED: SODIUM CHLOR 0.9% 1000 ML INJ 1,000 ML IV PRN ×3 (11:43)
[2017-01-14] MEDS ORDERED: ALBUMIN HUMAN 25% 25 GM/100 ML BAGP IV PRN (11:45)
[2017-01-14] MEDS ORDERED: diphenhydrAMINE HCL 25 MG CAP PO PRN (11:45)
[2017-01-14] MEDS ORDERED: cloNIDine HCL 0.1 MG TAB PO PRN (11:45)
[2017-01-14] MEDS ORDERED: NITROGLYCERIN 0.4 MG SL 25 TABS/BTL SL PRN (11:45)
[2017-01-14] MEDS ORDERED: SODIUM CHLORIDE 0.9% FLUSH 10 ML FLUSH IV FLUSH PRN (11:45)
[2017-01-14] MEDS ORDERED: GELATIN 12 MM/7 MM FOAM TOP PRN (11:45)
[2017-01-14] MEDS ORDERED: ONDANSETRON HCL 4 MG/2 ML VIAL IV PRN (11:45)
[2017-01-14] MEDS ORDERED: MANNITOL 12.5 GM/50 ML VIAL IV PRN (11:45)
[2017-01-14] MEDS ORDERED: HEPARIN SODIUM - IV 10,000 UNITS/10 ML VIAL IVF PRN (11:45)
[2017-01-14] MEDS ORDERED: ACETAMINOPHEN 325 MG TAB PO PRN (11:45)
--- NOTE | 2017-01-14 11:47 | HHI.NPPN ---
Subjective General Problems: Anemia, Edema, Heart Disease Renal Failure: Acute History of Present Illness 71-year-old the white male the who is transferred from [facility] to [facility] due to atrial fibrillation with fast ventricular response, he was in the heart catheterization lab and became unstable has to intubated the patient has chronic kidney disease, Cardiomyopathy ejection fraction of only 15% and has severe dilated cardiomyopathy with the clot in left atrium he is on heparin drip and currently on ventilator. Additional Remarks Patient remain on the vent. and sedated, clinically same, intubated Objective Data Data 01/13/17 01/14/17 19:00 07:00 Intake Total 2528 ml 2005 ml Output Total 450 ml 730 ml Balance 2078 ml 1275 ml Intake Oral 0 ml IV Total 1648 ml 1105 ml Tube Feeding 180 ml 900 ml Tube Irrigant 700 ml Output Urine Total 450 ml 730 ml Stool Total 0 ml Gastric Drainage Total 0 ml # Bowel Movements 1 Vital Signs Date Time Temp Pulse Resp B/P Pulse Ox O2 Delivery O2 Flow Rate FiO2 01/14/17 11:00 65 01/14/17 11:00 139 01/14/17 11:00 90 Mechanical Ventilator 65 01/14/17 11:00 99.1 118 14 108/63 97 107/59 01/14/17 08:15 97 65 01/14/17 07:24 129 01/14/17 07:24 93 Mechanical Ventilator 65 01/14/17 07:24 99.0 129 14 115/64 97 103/54 01/14/17 07:24 65 01/14/17 04:29 94 65 01/14/17 03:16 97 Mechanical Ventilator 65 01/14/17 03:16 65 01/14/17 03:16 98.4 125 15 125/80 97 128/64 01/14/17 03:16 127 01/14/17 00:50 95 65 01/13/17 23:16 129 01/13/17 23:16 97 Mechanical Ventilator 65 01/13/17 23:16 98.7 109 14 116/63 97 118/61 01/13/17 23:16 65 01/13/17 22:46 96 65 01/13/17 19:48 96 65 01/13/17 19:30 96 Mechanical Ventilator 65 01/13/17 19:30 121/62 01/13/17 19:30 99.0 114 14 121/62 96 01/13/17 19:30 65 01/13/17 19:00 127 01/13/17 16:57 96 65 01/13/17 15:00 97 Mechanical Ventilator 90 01/13/17 15:00 116 01/13/17 15:00 75 01/13/17 15:00 98.0 122 19 89/57 95 97/56 01/13/17 14:32 97 75 01/13/17 13:32 98 90 -: 01/14/17 0505 01/14/17 0505 Physical Exam Eyes Eye Exam: Pupils Equal Throat Throat Exam: Oral Mucosa [place] & Moist Pulmonary Resp Exam: Crackles, Rhonchi, Decreased Bases, Diminished Breath Sounds Cardiology CV Exam: Arrhythmia Gastrointestinal/Abdomen GI Exam: Soft, Non-Tender, Distended Extremeties Extremities Exam: Moderate Edema, Pitting Edema, Dependent Edema Neurologic Neuro Exam: Sedated Assessment/Plan Problem List: (1) Acute renal failure Plan: Patient is off Bumex drip, urine out put is good. He has poor ejection fraction and is intubated Severe cardiomyopathy prognosis is guarded. Creatinine higher BUN high family now consented to do dialysis await Vascath FiO2 65% DC Bumex Pulmonary following ENT packed nares (2) CKD (chronic kidney disease) stage 4, GFR 15-29 ml/min Plan: Has high creatinine kidney ultrasound reviewed (3) CHF (congestive heart failure) Plan: Severe cardiomyopathy EF 15% (4) Atrial fibrillation with rapid ventricular response Plan: Has a blood clot in LA appendage Problem Qualifiers (1) CHF (congestive heart failure): Christa Hahn MD January 14, 2017 11:47
[2017-01-14] MEDS ORDERED: CISATRACURIUM BESYLATE 200 MG/20 ML VIAL IV ONE (12:00)
[2017-01-14] MEDS: AZITHROMYCIN INJ 500 MG in SODIUM CHLOR 0.9% 250 ML INJ 250 ML IV SCH (12:15)
--- NOTE | 2017-01-14 12:49 | PD.PROCEDR ---
Central Line Procedure REASON FOR PROCEDURE Central venous access PROCEDURE PERFORMED Central line placement Vascular Catheter: Left IJ CONSENT Informed consent for procedure was obtained from . The risks and benefits of the procedure were discussed to include but limited to bleeding, clot formation, infection, and even . ANESTHESIA Local injection of 1% Lidocaine DESCRIPTION OF THE PROCEDURE The patient was placed in supine, mild Trendelenburg position. The area was exposed and cleansed with ChloraPrep, times two. Large sterile drape was used to cover the patient, with the site exposed, under sterile conditions including cap, face mask, sterile gown, and sterile gloves. On single attempt, the introducer needle was inserted with negative pressure in syringe and venous flash was obtained. The guide wire was then advanced without any restriction and the needle was removed. The dilator was used without any complications. Using Seldinger technique the 11.5 catheter was advanced over the guide wire to a depth of 20 centimeters. The guide wire was removed. All ports were aspirated with dark venous blood return and flushed easily with sterile saline. All ports were capped. Antibiotic disc was placed around central line at puncture site. The central line was secured to the skin with two interrupted 2.0 silk sutures. The area was bandaged with sterile see-through central line bandage. RADIOLOGICAL DATA Ultrasound guidance was used to locate Left IJ. Doppler/color flow was used to confirm venous flow. COMPLICATIONS: No apparent complications ESTIMATED BLOOD LOSS: Less than 1 cc. Marianne Foy MD January 14, 2017 12:49
--- NOTE | 2017-01-14 12:51 | RADRPT ---
EXAM DATE/TIME: 01/14/2017 12:36 [facility] COMPARISON: CHEST SINGLE AP, January 14, 2017, 4:04. INDICATIONS : Evaluate central line placement MEDICAL HISTORY : Hypertension. SURGICAL HISTORY : Coronary artery stent. ENCOUNTER: Subsequent ACUITY: 1 week PAIN SCORE: Non-responsive. LOCATION: Bilateral chest FINDINGS: A single view of the chest demonstrates cardiomegaly with left basilar density and pulmonary vascular congestion. Left jugular central line with tip in the SVC. Right jugular line, endotracheal tube na sogastric tube unchanged. No pneumothorax Osseous structures are intact. CONCLUSION: 1. Adequate placement of left jugular central line. 2. Slight improvement in the lungs with persistent left basilar density and pulmonary vascular conges tion. Edgardo Mayorga MD on January 14, 2017 at 12:48 Board Certified Radiologist. This report was verified electronically.
[2017-01-14] MEDS: HEPARIN SODIUM - IV 10,000 UNITS/10 ML VIAL PRN ×2 (13:19→15:40)
--- NOTE | 2017-01-14 13:25 | PD.CARD.PN ---
Subjective Subjective Remarks Sedated on ventilator. NAD. Objective Medications Current Medications Medications (Trade) Dose Ordered Sig/Claire Route Start Time Stop Time Status Last Admin Sodium Chloride 500 ml @ 30 mls/hr CONTINUOUS IV 01/05/17 10:00 (NS 500 ml Inj) 500 ml @ 30 mls/hr CONTINUOUS IV 01/05/17 09:15 (Heparin Inj) 5,000 units UNSCH PRN IV 01/05/17 19:45 Hold Heparin Sodium (Porcine) 2500 units 2,500 units UNSCH PRN IV 01/05/17 19:45 Hold 01/08/17 20:21 (Heparin-D5W Inj) 250 ml @ 0 mls/hr TITRATE IV 01/05/17 14:00 Hold 01/12/17 21:06 (Brethine Inj) 1 mg UNSCH PRN SQ 01/05/17 16:00 Famotidine 10 mg 10 mg Q12H IV PUSH 01/05/17 17:00 01/14/17 06:01 (Diprivan 1000 Mg/100ml Inj) 100 ml @ 0 mls/hr TITRATE IV 01/05/17 21:45 01/14/17 10:46 (Tears Naturale Opth Soln) 1 drop Q4H PRN EACH EYE 01/06/17 08:15 01/06/17 21:43 (Peridex 0.12% Liq) 15 ml BID@08,20 MT 01/06/17 20:00 01/14/17 08:04 (Colace Liq) 100 mg Q12HR PO 01/06/17 21:00 01/14/17 08:04 Sennosides 8.8 mg 8.8 mg DAILY PO 01/07/17 09:00 01/14/17 08:04 Cefepime HCl 2000 mg/Sodium Chloride 100 ml @ 200 mls/hr Q24H IV 01/06/17 12:00 01/14/17 10:46 (Zithromax Inj/ NS 250 ml Inj) 250 ml @ 250 mls/hr Q24H IV 01/06/17 13:00 01/14/17 12:15 (NS Flush) 2 ml UNSCH PRN IV FLUSH 01/06/17 13:15 01/12/17 02:25 (NS Flush) 2 ml BID IV FLUSH 01/06/17 21:00 01/14/17 08:06 Miscellaneous Information 1 Q361D XX 01/06/17 13:15 (Chlorhexidine 2% Cloth) Taper DAILY@04 TOP 01/07/17 04:00 01/03/18 03:59 01/14/17 04:00 (Chlorhexidine 2% Cloth) 3 pack UNSCH PRN TOP 01/06/17 13:15 (SoluMEDROL INJ) 40 mg Q6H IV PUSH 01/07/17 09:00 01/14/17 12:15 (D50w (Vial) Inj) 25 ml UNSCH PRN IV PUSH 01/09/17 07:15 Glucagon 1 mg 1 mg UNSCH PRN OTHER 01/09/17 07:15 (Cordarone Inj/ D5W ([place]) Inj) 250 ml @ 0 mls/hr CONTINUOUS IV 01/09/17 19:45 01/13/17 20:36 (Coreg) 6.25 mg Q12H PO 01/09/17 20:00 Hold 01/09/17 20:06 Insulin Aspart 1 1 Q6HR SQ 01/10/17 06:00 01/14/17 11:37 (Neosynephrine Inj/D5W 500 ml Inj) 500 ml @ 0 mls/hr TITRATE IV 01/10/17 03:30 01/10/17 02:42 (Dulcolax Supp) 10 mg DAILY PRN RECTAL 01/10/17 09:15 01/10/17 09:56 Polyethylene Glycol 17 gm 17 gm DAILY PO 01/10/17 09:15 01/14/17 08:04 (Levophed-Dextrose Drip) 250 ml @ 0 mls/hr TITRATE IV 01/13/17 17:45 01/14/17 10:46 Terbutaline Sulfate 1 mg 1 mg UNSCH PRN SQ 01/13/17 17:45 (NS 1000 ml Inj) 1,000 ml @ 0 mls/hr Q0M PRN IV 01/14/17 11:43 Heparin Sodium (Porcine) 8000 units 8,000 units UNSCH PRN IVF 01/14/17 11:45 Sodium Chloride 1,000 ml @ 200 mls/hr Q5H PRN IV 01/14/17 11:43 (NS 1000 ml Inj) 1,000 ml @ 0 mls/hr Q0M PRN IV 01/14/17 11:43 (Mannitol Inj) 12.5 gm UNSCH PRN IV 01/14/17 11:45 (Albumin 25% Inj) 25 gm UNSCH PRN IV 01/14/17 11:45 (NS Flush) 5 ml UNSCH PRN IV FLUSH 01/14/17 11:45 (Heparin Inj) UNSCH PRN .XX 01/14/17 11:45 (Gentamicin (Dialysis) Inj) 20 mg UNSCH PRN IV 01/14/17 11:45 (Zofran Inj) 4 mg UNSCH PRN IV 01/14/17 11:45 (Tylenol) 650 mg UNSCH PRN PO 01/14/17 11:45 (Benadryl) 25 mg UNSCH PRN PO 01/14/17 11:45 (Nitrostat Sl) 0.4 mg UNSCH PRN SL 01/14/17 11:45 (Catapres) 0.1 mg UNSCH PRN PO 01/14/17 11:45 (Gelfoam 12 Mm/7 Mm Top) 1 foam UNSCH PRN TOP 01/14/17 11:45 Vital Signs / I&O Vital Signs Date Time Temp Pulse Resp B/P Pulse Ox O2 Delivery O2 Flow Rate FiO2 01/14/17 12:00 95 100 01/14/17 11:00 65 01/14/17 11:00 139 01/14/17 11:00 90 Mechanical Ventilator 65 01/14/17 11:00 99.1 118 14 108/63 97 107/59 01/14/17 08:15 97 65 01/14/17 07:24 129 01/14/17 07:24 93 Mechanical Ventilator 65 01/14/17 07:24 99.0 129 14 115/64 97 103/54 01/14/17 07:24 65 01/14/17 04:29 94 65 01/14/17 03:16 97 Mechanical Ventilator 65 01/14/17 03:16 65 01/14/17 03:16 98.4 125 15 125/80 97 128/64 01/14/17 03:16 127 01/14/17 00:50 95 65 01/13/17 23:16 129 01/13/17 23:16 97 Mechanical Ventilator 65 01/13/17 23:16 98.7 109 14 116/63 97 118/61 01/13/17 23:16 65 01/13/17 22:46 96 65 01/13/17 19:48 96 65 01/13/17 19:30 96 Mechanical Ventilator 65 01/13/17 19:30 121/62 01/13/17 19:30 99.0 114 14 121/62 96 01/13/17 19:30 65 01/13/17 19:00 127 01/13/17 16:57 96 65 01/13/17 15:00 97 Mechanical Ventilator 90 01/13/17 15:00 116 01/13/17 15:00 75 01/13/17 15:00 98.0 122 19 89/57 95 97/56 01/13/17 14:32 97 75 01/13/17 13:32 98 90 I/O 01/13/17 01/13/17 01/13/17 01/14/17 01/14/17 01/14/17 06:59 14:59 22:59 06:59 14:59 22:59 Intake Total 1126 ml 2528 ml 2005 ml Output Total 600 ml 450 ml 730 ml Balance 526 ml 2078 ml 1275 ml Intake Oral 0 ml IV Total 610 ml 1648 ml 1105 ml Tube Feeding 486 ml 180 ml 900 ml Tube Irrigant 700 ml Other 30 ml Output Urine Total 600 ml 450 ml 730 ml Stool Total 0 ml Gastric Drainage Total 0 ml # Bowel Movements 0 1 Physical Exam HEENTN: Intubated. Lungs: Decreased breath sounds L>R CV: Rapid rate with PATRICK No gallops. Abd: Decreased bowel sounds Ext: No edema. Laboratory Laboratory Tests Test 01/14/17 01/14/17 01/14/17 05:05 06:09 09:00 White Blood Count 28.9 TH/MM3 Red Blood Count 3.09 MIL/MM3 Hemoglobin 9.1 GM/DL Hematocrit 28.0 % Mean Corpuscular Volume 90.5 FL Mean Corpuscular Hemoglobin 29.3 PG Mean Corpuscular Hemoglobin 32.4 % Concent Red Cell Distribution Width 15.3 % Platelet Count 180 TH/MM3 Mean Platelet Volume 10.9 FL Activated Partial 22.7 SEC Thromboplast Time Sodium Level 144 MEQ/L Potassium Level 4.2 MEQ/L Chloride Level 102 MEQ/L Carbon Dioxide Level 27.0 MEQ/L Anion Gap 15 MEQ/L Blood Urea Nitrogen 218 MG/DL Creatinine 5.42 MG/DL Estimat Glomerular Filtration 11 ML/MIN Rate Random Glucose 163 MG/DL Calcium Level 8.5 MG/DL Phosphorus Level 6.7 MG/DL Magnesium Level 3.5 MG/DL Blood Gas Puncture Site ART LINE Blood Gas Patient Temperature 98.6 Blood Gas HCO3 25 mmol/L Blood Gas Base Excess 2.0 mmol/L Blood Gas Oxygen Saturation 92 % Arterial Blood pH 7.50 Arterial Blood Partial 32 mmHg Pressure CO2 Arterial Blood Partial 71 mmHg Pressure O2 Arterial Blood Oxygen Content 11.7 Vol % Arterial Blood 1.6 % Carboxyhemoglobin Arterial Blood Methemoglobin 1.4 % Blood Gas Hemoglobin 9.0 G/DL Oxygen Delivery Device VENTILATOR Blood Gas Ventilator Setting PC/AC Blood Gas Inspired Oxygen 65 % Blood Type O POSITIVE Antibody Screen NEGATIVE Crossmatch Leukocyte-Reduced Red Blood Cells Blood Bank Comment Assessment and Plan Assessment and Plan 01/13/17: Remains in AF with RVR. Medical Psychotherapist has stopped heparin because of active ongoing and uncontrolled bleeding. We really have no choice at this point but to hold anticoagulants with unremitting bleeding in the setting of uremia and aspirin use. He continues to be in ARDS with no improvement in CXR. He has progressive renal failure refusing dialysis with BUN nearing 200. He continues to be in shock with MAP of 64 mmHg. I checked with the organisation and methods analyst about switching Blake to Levophed as he could use the positive ionotropic effect with his 15% EF. I asked the organisation and methods analyst to manage the pressors as she is vastly more expert than I am in that regard. At this point bleeding and ARDS are his critical issues. Will ask renal if we can decrease diuretics as he needs some preload with 15% EF. I am very reluctant to use digoxin for rate Rx with advanced renal failure so will continue amioderone. Avoid cardioversion with NETTIE clot. Prognosis is dismal. Consider hospice. 01/14/17: BP much better with Levophed and off Blake. The positive inotropy is help as is hold of Bumex. For dialysis later today. ENT coming to pack nose again but bleeding has markedly improved. S/P Vascath Left IJ. HR is moderately elevated but with dialysis will try low dose digoxin. Still on IV amiodarone but tolerating well today. Dr. Jimenez back in AM. Augustina Ham MD January 14, 2017 13:25
[2017-01-14] MEDS ORDERED: DIGOXIN 0.5 MG/2 ML VIAL IV PUSH ONE ×2 (13:30→19:30)
--- NOTE | 2017-01-14 14:17 | HHI.PR ---
Subjective Remarks Sedated on Vent support , FIO2 at 80%. Will be dialyzed. CR is >4.1. CXR is showing bilateral infiltrates No further bleeding Objective Vital Signs Date Time Temp Pulse Resp B/P Pulse Ox O2 Delivery O2 Flow Rate FiO2 01/14/17 12:00 95 100 01/14/17 11:00 65 01/14/17 11:00 139 01/14/17 11:00 90 Mechanical Ventilator 65 01/14/17 11:00 99.1 118 14 108/63 97 107/59 01/14/17 08:15 97 65 01/14/17 07:24 129 01/14/17 07:24 93 Mechanical Ventilator 65 01/14/17 07:24 99.0 129 14 115/64 97 103/54 01/14/17 07:24 65 01/14/17 04:29 94 65 01/14/17 03:16 97 Mechanical Ventilator 65 01/14/17 03:16 65 01/14/17 03:16 98.4 125 15 125/80 97 128/64 01/14/17 03:16 127 01/14/17 00:50 95 65 01/13/17 23:16 129 01/13/17 23:16 97 Mechanical Ventilator 65 01/13/17 23:16 98.7 109 14 116/63 97 118/61 01/13/17 23:16 65 01/13/17 22:46 96 65 01/13/17 19:48 96 65 01/13/17 19:30 96 Mechanical Ventilator 65 01/13/17 19:30 121/62 01/13/17 19:30 99.0 114 14 121/62 96 01/13/17 19:30 65 01/13/17 19:00 127 01/13/17 16:57 96 65 01/13/17 15:00 97 Mechanical Ventilator 90 01/13/17 15:00 116 01/13/17 15:00 75 01/13/17 15:00 98.0 122 19 89/57 95 97/56 01/13/17 14:32 97 75 I/O 01/13/17 01/13/17 01/13/17 01/14/17 01/14/17 01/14/17 07:00 15:00 23:00 07:00 15:00 23:00 Intake Total 1126 ml 2528 ml 2005 ml Output Total 600 ml 450 ml 730 ml Balance 526 ml 2078 ml 1275 ml Intake Oral 0 ml IV Total 610 ml 1648 ml 1105 ml Tube Feeding 486 ml 180 ml 900 ml Tube Irrigant 700 ml Other 30 ml Output Urine Total 600 ml 450 ml 730 ml Stool Total 0 ml Gastric Drainage Total 0 ml # Bowel Movements 0 1 Result Diagram: 01/14/17 0505 01/14/17 0505 Objective Remarks GENERAL: This is an obese, elderly man who is intubated, sedated, assisting the ventilator. HEENT: Head is normocephalic. Pupils are sluggishly reactive. Throat is clear. NECK: Supple with mild venous distention. Trachea is midline. CHEST: Decreased breath sounds over the left base with occasional crackles in both lung bases. HEART: The heart sounds are irregular S1-S2. No murmur. ABDOMEN: Soft. Obese without masses. No organomegaly. EXTREMITIES: 2 + edema. Decreased peripheral pulses. Reflexes are not elicited. The patient is sedated. SKIN: Dry and cool. Assessment and Plan Assessment and Plan IMPRESSION 1. Hypoxic respiratory failure. 2. Left lower lobe atelectasis and possible pneumonia with aspiration. 3. Left pleural effusion resolved. 4. Cardiomyopathy and congestive heart failure. 5. Obstructive sleep apnea. 6. Diabetes mellitus. 7. Atrial fibrillation. 8. Nasopharyngeal bleed Plan : 1. Wean FIO2 to keep sat >90. 2. Dialysis today 3. Antibiotics per ID. 4. CXR ,CBC BMP in am. 5. Nebs qid , duoneb. 6. Change anticoagulant to PO. 7. Wean FIO2 and leave PEEP at 12 Julius Burch MD January 14, 2017 14:17
[2017-01-14] MEDS ORDERED: PHENYLEPHRINE HCL 10 MG/ML VIAL ONE (15:35)
[2017-01-14] MEDS: GENTAMICIN SULFATE (DIALYSIS USE ONLY) 20 MG/2 ML VIAL IV PRN (15:40)
[2017-01-14] MEDS ORDERED: OXYMETAZOLINE HCL 0.05% 15 ML NASAL SPRAY NASAL PRN (15:45)
[2017-01-14] MEDS ORDERED: OXYMETAZOLINE HCL 0.05% 15 ML NASAL SPRAY EACH NARE PRN (16:00)
--- NOTE | 2017-01-14 19:25 | MB ---
cc: TIMMY GARCIA MD DATE OF CONSULTATION: 01/13/2017. REASON FOR CONSULTATION / CHIEF COMPLAINT: Epistaxis. HISTORY OF PRESENT ILLNESS: This is a 71-year-old male who unfortunately had a cardiovascular event, subsequently became unresponsive in the cardiac catheterization lab and has since been admitted to the cardiovascular intensive care unit. Over the last few days, he has developed of bleeding from his nose and his mouth. He is currently intubated. His hemoglobins have remained stable but they are unable to determine the area of the bleed or the cause of it. He is currently in bed intubated with dark blood coming out of his oral cavity and some dark blood around his nares. PAST MEDICAL HISTORY: His past medical history is as above and obtained from the chart. PHYSICAL EXAMINATION: The patient is intubated and sedated. Nasal endoscopy reveals multiple bleeding sites in both nares, the septum as well as in the middle turbinate and inferior turbinates bilaterally with a significant amount of dark blood in the nasopharynx and oropharynx. No definitive lacerations noted in the oropharynx or hypopharynx; however, there is significant edema as well as an endotracheal tube as well as significant secretions making it very difficult to visualize any further bleeding noted. At this time, nasal balloons were placed bilaterally, anterior posterior packs and inflated with 5 mL of air. The oropharynx bleeding was tamponaded using a Kerlix roll with the patient intubated that is Afrin-soaked and it is secured to the outside of the neck. ASSESSMENT AND PLAN: Patient with what I believe to be significant epistaxis; however, there is there may possibly be some oropharyngeal or hypopharyngeal lacerations from the emergent intubation; however, I am unable to visualize this due to the fact that the patient continues to bleed, even when his nose has been packed. I have packed his oropharynx at this time. Will reevaluate in the morning to see I can remove the packing from his oropharynx. Would recommend the nasal balloons stay in place for three to five days as well as the patient maintain antibiotic coverage while the balloons are in place. Thank you for this consultation. Timmy Garcia AT/[facility] /6:46 PM /7:19 PM
[2017-01-14] MEDS: RESP: ALBUTEROL 2.5 MG/IPRATROPIUM 0.5 MG NEB (PRN) NEB (20:44)
[2017-01-15] VITALS (17 sets, daily range): BP systolic 108–154; BP diastolic 53–83; PULSE 103–188; RESP 14–18; TEMP 98–98.7; O2SAT 89–95
[2017-01-15] MEDS: PROPOFOL 1000 MG/100 ML IV SCH ×6 (00:03→21:36)
[2017-01-15] MEDS: INSULIN ASPART SUPPLEMENTAL SCALE SQ SCH ×4 (00:21→18:00)
[2017-01-15] MEDS: RESP: IPRATROPIUM 0.5 MG/2.5 ML NEB NEB SCH ×6 (00:43→21:13)
[2017-01-15] MEDS: AMIODARONE INJ 450 MG in D5W (EXCEL BAG) 241 ML IV SCH ×2 (01:20→16:20)
[2017-01-15] MEDS: CHLORHEXIDINE GLUCONATE 2 % 1 PACK (2 CLOTHS) TOP SCH (03:16)
[2017-01-15] MEDS: methylPREDNISolone SOD SUCC 40 MG/1 ML VIAL IV PUSH SCH ×4 (03:20→21:36)
[2017-01-15 05:51] LABS: HEMATOCRIT 26.3 % (39.0-51.0); MEAN CELL VOLUME 89.9 FL (80.0-100.0); MEAN CORPUSCULAR HEMOGLOBIN 29.3 PG (27.0-34.0); MEAN CORPUSCULAR HGB CONC 32.6 % (32.0-36.0); PLATELET COUNT 96 TH/MM3 (150-450); RED BLOOD COUNT 2.93 MIL/MM3 (4.50-5.90); RED CELL DISTRIBUTION WIDTH 16.1 % (11.6-17.2); WHITE BLOOD COUNT 20.3 TH/MM3 (4.0-11.0)
[2017-01-15] MEDS: FAMOTIDINE 20 MG/2 ML VIAL IV PUSH SCH ×2 (05:55→17:00)
--- NOTE | 2017-01-15 05:57 | RADRPT ---
EXAM DATE/TIME: 01/15/2017 05:10 [facility] COMPARISON: CHEST SINGLE AP, January 14, 2017, 12:36. INDICATIONS : Shortness of breath, possible pulmonary disease. MEDICAL HISTORY : Hypertension. SURGICAL HISTORY : Coronary artery stent. ENCOUNTER: Subsequent ACUITY: 1 week PAIN SCORE: Non-responsive. LOCATION: Bilateral chest FINDINGS: A single AP semierect view of the chest was obtained and again demonstrates an endotracheal tube in p lace with the tip 4 cm above the saturnino. The nasogastric tube remains in place. There are bilateral i nternal jugular central venous line is again noted. The heart size remains prominent. Hazy perihilar and bibasilar opacities remain left greater than right. The left hemidiaphragm is obscured. Both cost ophrenic angles are mildly blunted. CONCLUSION: 1. No significant change. Ar Lunsford MD on January 15, 2017 at 5:55 Board Certified Radiologist. This report was verified electronically.
[2017-01-15 05:58] LABS: REVIEW FLAG FINAL
[2017-01-15 06:01] LABS: BLOOD GAS CARBOXYHEMOGLOBIN 1.3 % (0-4); BLOOD GAS HCO3 25 mmol/L (22-26); BLOOD GAS METHEMOGLOBIN 1.3 % (0-2); BLOOD GAS O2 HGB SATURATION 93 % (90-100); BLOOD GAS OXYGEN CONTENT 11.6 Vol % (12.0-20.0); BLOOD GAS PCO2 40 mmHg (38-42); BLOOD GAS PO2 82 mmHg (61-120); BLOOD GAS TOTAL HGB 8.8 G/DL (12.0-16.0); CRITICAL VALUE NO; OXYGEN DEVICE VENTILATOR; TEMP CORR TO 98.6
[2017-01-15 06:02] LABS: DRAW SITE ART LINE; FIO2 85 %; STAT NO; VENT SETTINGS PC/AC
[2017-01-15 06:06] LABS: APTT (PATIENT) 23.2 SEC (24.3-30.1)
[2017-01-15 06:55] LABS: BICARBONATE 27.5 MEQ/L (21.0-32.0); MAGNESIUM 3.1 MG/DL (1.5-2.5); POTASSIUM 4.4 MEQ/L (3.5-5.1)
[2017-01-15] MEDS: CHLORHEXIDINE 0.12% (ORAL KIT) 15 ML CUP MT SCH ×2 (08:18→21:37)
[2017-01-15] MEDS: SENNOSIDES SYRUP 8.8 MG/5 ML CUP PO SCH (09:28)
[2017-01-15] MEDS: DOCUSATE SODIUM 100 MG/10 ML UDC PO SCH ×2 (09:28→21:36)
[2017-01-15] MEDS: POLYETHYLENE GLYCOL 17 GM PKG PO SCH (09:28)
[2017-01-15] MEDS: SODIUM CHLORIDE 0.9% FLUSH 10 ML FLUSH IV FLUSH SCH ×2 (09:29→21:37)
--- NOTE | 2017-01-15 09:46 | HHI.CCPN ---
Subjective Remarks/Hospital Course This is a 71-year-old gentleman that presented to [facility] secondary to dyspnea and atrial fibrillation with RVR. The patient has a medical history significant for obesity and hypertension. During his hospitalization at [facility], the patient underwent an echocardiogram which showed severe systolic dysfunction with an ejection fraction of 1015 % the patient then underwent a cardiac catheterization showing significance with left circumflex 90%. The patient underwent multiple attempts of unsuccessful synchronized cardioversion. The patient also underwent medical management with beta blockers, and calcium channel blockers that were also unsuccessful. The patient was transferred [facility] for cardiac ablation with Dr. Jimenez. The patient was scheduled for cardiac ablation, the procedure was canceled. The patient required emergent intubation and required ventilator management a VLADIMIR was performed showing a clot in the left atrial appendage. The patient was placed on IV Cardizem, and an amiodarone infusion. Critical Care medicine was consulted for management. Subjective: 01/06: Tmax 97.4. The patient remained on elevated vent settings with FiO2 of 1.0 overnight, PEEP requirements were increased to 8, to maintain a PaO2 of greater than [address] scan of the chest was obtained which noted bilateral effusions small, basilar consolidations right worse than the left, and a loculated area representing a possible pneumonia process, empyema, as well as aspiration or just loculated fluid as well as a small pericardial effusion. The patient continues on Cardizem and amiodarone infusions with a heart rate overnight 80s -115. The patient's vasopressor requirements of phenylephrine diminished to 20 mcgs. 01/07: Tmax 99.2. Yesterday the central line was placed for vasoactive medications and CVP monitoring, small hematoma noted near the right IJ area soft no compression of major vessels, with resolution of bleeding in that area. Phenylephrine was discontinued yesterday. The patient heart rate remains today [id number]. Cardizem infusion has been discontinued in the setting of EF of 10-15%. Esmolol infusion to be initiated this a.m.. Coumadin was initiated last night now placed on hold due to patient bleeding from nasopharynx and oropharynx. INR currently 1.2. Plan for CT thorax tomorrow, with possible IR intervention versus CVT consultation for possible empyema the patient will remain on heparin infusion, and transition onto Coumadin after any potential procedures to be initiated. Chest x-ray slightly improved FiO2 decreasing now 70%. Sedation vacation yesterday revealed GCS 11 T, patient alert responsive following commands. With initiation of antibiotics, leukocytosis resolved. ID consulted Dr. Gage. Blood cultures are pending. 01/08: Patient's heart rate 110-[address] scan of the chest imaging revealed fluid. Plan for thoracentesis and and studies of pleural fluid , this afternoon. The patient remains on amiodarone and heparin infusions, per cardiology. Heparin held, for thoracentesis this afternoon, and then will be resumed. The patient was maintained on CPAP trial for approximately one hour yesterday. During sedation vacation patient was alert following commands recognizing family. Plan to resume CPAP trials this afternoon post thoracentesis. 01/09: The patient underwent CT-guided thoracentesis yesterday , on the right side noted 400 cc of fluid was removed , with specimens ordered to be sent for evaluation .This morning chest x-ray performed showing almost complete opacification of the left lung. FiO2 requirements increase patient on FiO2 of 80%, O2 sat 94%. Left chest ultrasound obtained revealing no fluid. Consent obtained BAL performed, revealing emanating from the nearest previously ( patient was noted to have epistaxis with initiation of heparin on 01/06). Blood clots noted in left lung upon visualization with bronchoscopy, saline lavage applied, minimal blood clots removed. The patient was initiated on Mucomyst 10% , and pulmonology was consulted. Dr. Tasia Lama following. The patient shows no signs or evidence of bleeding actively, plan to consult ENT if signs of active bleeding become evident. Hemoglobin remains stable.The patient converted into sinus rhythm is today afternoon. Cardiology management of medications, IV amiodarone discontinued this afternoon. 01/10: Tmax 99.0. Chest x-ray shows slight improvement of left lung today. Plan for repeat bronchoscopy per Dr. Burch this a.m, and the patient continues on Mucomyst. The patient's cardiac rhythm reverted to A. fib last evening, amiodarone IV infusion reinstituted per Dr. Jimenez. 01/11: TMax 100.0. Much improved chest x-ray this morning. The patient continues in A. fib with a rate of 120, he continues on amiodarone, heparin infusion per cardiology. No evidence of active bleeding. 01/12 Patient Remains sedated with Diprivan, intubated. T:99.9. On Neosyn 15 mics , heparin and Amio drips. In Afib with RRV. Patient s/p repeat bronch with BAL yesterday by Dr. Burch and ETT replacement by Dr. Sanchez. On PC/AC with PEEP:14 , FIO2 100%. 01/13: TMax 100.2. Last night the nurse reported that the patient had a small amount of epistaxis, and blood in the oropharynx noted. The area continued to bleed during the night. ENT has been consulted. Heparin has been placed on hold , ASA has been discontinued in the setting of acute renal failure. The patient continues on amiodarone infusion , heart rate 120's. Neosynephrine has been discontinued, and Levophed instituted. Creatinine noted to be 4.5. As per report , states patient does not want dialysis. The patient continues on elevated PEEP of 14. 5/14: Heparin was discontinued yesterday in the setting of continued bleeding in the nasal/ oropharyngeal region. ENT was consulted and nasal packing was applied. During the night the patient still had small noted amount of bleeding from the oropharyngeal area plan today for oropharyngeal packing. Hgb 9, will transfuse .The patient was placed on norepinephrine for currently at 1-2 mcgs per minute. PEEP has been decreased to 12, with adequate oxygenation a PaO2 of 71. 5/: Tmax 99.0. The patient continues to be anemic and thrombocytopenic, contributory factors being uremia. The patient's /family decided to pursue hemodialysis at this point. The patient received 1 unit of packed red blood cells yesterday. The patient was initiated on dialysis yesterday afternoon, with approximately 3 L removed. Nasal gauze packing removed and placement of nasal balloons by ENT yesterday. Oral gauze packing to be removed today. The patient received 2 separate doses of digoxin, A. fib heart rate ranging 80- < 120. The patient continues to have high ventilatory requirements, FiO2 was increased throughout the night to currently 80%, to maintain O2 sat greater than 92%. Objective Vital Signs Date Time Temp Pulse Resp B/P Pulse Ox O2 Delivery O2 Flow Rate FiO2 01/15/17 07:26 90 75 01/15/17 07:00 98.6 103 15 134/78 141/61 01/15/17 07:00 Mechanical Ventilator Intake and Output 01/14/17 01/14/17 01/15/17 08:00 16:00 00:00 Intake Total 2005 ml 1804 ml Output Total 730 ml 3000 ml 880 ml Balance 1275 ml -3000 ml 924 ml Result Diagram: 01/15/17 0520 01/15/17 0520 Other Results Laboratory Tests Test 01/15/17 05:50 Blood Gas Puncture Site ART LINE Blood Gas Patient Temperature 98.6 Blood Gas HCO3 25 mmol/L (22-26) Blood Gas Base Excess 1.0 mmol/L (-2-2) Blood Gas Oxygen Saturation 93 % (90-100) Arterial Blood pH 7.41 (7.380-7.420) Arterial Blood Partial 40 mmHg (38-42) Pressure CO2 Arterial Blood Partial 82 mmHg Pressure O2 (61-120) Arterial Blood Oxygen Content 11.6 Vol % (12.0-20.0) Arterial Blood 1.3 % (0-4) Carboxyhemoglobin Arterial Blood Methemoglobin 1.3 % (0-2) Blood Gas Hemoglobin 8.8 G/DL (12.0-16.0) Oxygen Delivery Device VENTILATOR Blood Gas Ventilator Setting PC/AC Blood Gas Inspired Oxygen 85 % Imaging Last Impressions Chest X-Ray 01/12/17 0600 Signed Impressions: Service Date/Time: Thursday, January 12, 2017 03:15 - CONCLUSION: No significant interval change. Jordin Christianson MD Renal Ultrasound 01/09/17 0000 Signed Impressions: Service Date/Time: Monday, January 09, 2017 13:56 - CONCLUSION: 1. Right kidney is sonographically normal. 2. Benign-appearing 2.4 x 1.5 cm cortical cyst in the midpole of the left kidney. 3. Subcentimeter echogenic, non-shadowing foci in the midpole of the left kidney would be unusual for stones and may represent ectopic hilar fat. No hydronephrosis. 4. Urinary bladder is decompressed with a Alanis catheter. Douglas Ward MD Chest Ultrasound 01/09/17 0000 Signed Impressions: Service Date/Time: Monday, January 09, 2017 08:18 - CONCLUSION: No left-sided pleural effusion. The abnormality in the left chest on chest radiograph is likely related to mucous plugging. When patient had a CT scan yesterday the left lung was well aerated. Edgardo Mayorga MD Chest CT 01/08/17 0600 Signed Impressions: Service Date/Time: Sunday, January 08, 2017 08:46 - CONCLUSION: Massive cardiomegaly with panchamber enlargement extensive coronary calcifications. Stable trace pericardial effusion. Increasing bibasilar consolidative changes with minimal bilateral pleural effusions.. Rhys Fritz MD FACR Thoracentesis 01/08/17 0000 Signed Impressions: Service Date/Time: Sunday, January 08, 2017 16:08 - CONCLUSION: Uncomplicated CT-guided thoracentesis on the right. The left sided thoracentesis was not performed as there was no significant left pleural fluid. The abnormality on most recent chest x-ray was secondary to mucous plugging and left sided atelectasis. Edgardo Mayorga MD Objective Remarks GENERAL: Critically ill-appearing appropriately stated age, obese male sedated SKIN: Warm and dry. HEAD: Atraumatic. Normocephalic. EYES: Pupils equal and round, 3mm. No scleral icterus. No injection or drainage. ENT: No nasal bleeding or discharge. Mucous membranes pink and moist. Orotracheally intubated. NECK: Trachea midline. Unable to assess JVD secondary to body habitus. At RIJ site, ecchymotic bruising noted, in various stages of healing. Left neck vascular catheter CARDIOVASCULAR: Irregular rate and rhythm, Tachycardic. RESPIRATORY: Mechanical ventilation. Clear to auscultation, decreased in bases. Breath sounds equal bilaterally. High vent requirements GASTROINTESTINAL: Abdomen soft, obese non-tender, nondistended. MUSCULOSKELETAL: Extremities without clubbing, cyanosis, or edema. No obvious deformities. NEUROLOGICAL: Intubated and sedated. Follows commands moving extremities 4, when off sedation. Urinary Catheter: Yes Alanis insert reason: Measure Accurate Output Date of Insertion: January 05, 2017 Date of Insertion: January 06, 2017 Line: Central Venous Catheter Side: Right Location: Internal, Jugular A/P Assessment and Plan A. fib with RVR Left atrial appendage thrombus Cardiomyopathy Systolic CHF Acute hypoxic respiratory failure Hypertension CKD stage IV Obesity Probable aspiration Possible multilobar [id number] Bilateral pleural effusions Hypokalemia-resolved Leukocytosis Soft tissue hematoma right neck-resolved Left lung consolidation 2/2 previous event of epistaxis, clotted blood left lung -resolved SONU Epistaxis-resolved Questionable Cardiorenal syndrome Thrombocytopenia , thrombocytopathia 2/2 uremia Neurologic: Propofol for sedation to maintain ventilator synchrony Neurochecks per ICU protocol Daily sedation vacation when clinically appropriate, patient currently on high ventilator requirements PEEP 12 unable to perform Respiratory: Continue with vent support keep sat >92% On PC/AC RR 14, IP:16, IT:0.9, PEEP;12, FIO2 80, decrease FIO2 as tolerated, maintain PEEP-follow ARDS protocol CXR 01/15-no change in bibasilar infiltrates Bronchodilators, ICU vent bundle. Pulmonology following- Dr. Burch 01/05 CT chest-pericardial effusion small, bilateral effusions, basilar consolidation and right greater than left Daily CPAP trials when clinically indicated Solu-Medrol 40 mg IV Q6hr 01/08-right CT-guided thoracentesis-400 cc removed, sent for cytology and cultures s/p bronch . by- Dr. Burch CV: Wean off Neosyn (01/13)monitor HR and BP keep MAP>65mmHg. Amiodarone infusion 01/13- Heparin, ASA discontinued 01/05 VLADIMIR( [employer] Counsel[employer])-left atrial thrombus 12/26 [facility] severe systolic dysfunction EF 1015%, mitral valve mild to moderate regurg, LAE, tricuspid Valve-mild to moderate regurg, small pericardial effusion, cardiac cath left circumflex 90% occlusion Management per Cardiology -Dr. Jimenez 01/14 Levophed -off, SBP 130's-140's Renal: Nephrology following-Dr. Hahn Monitor renal function, I/O's, avoid nephrotoxins. Off Bumex drip. Cr: today from 3.70 UO 1180 ml in 24 hrs Patient and family declined dialysis 01/12 Vascath placement Hemodialysis initiated 01/14 FEN/GI: Tube feeds Nepro @40 cc, no residuals noted Bowel regimen-add MiraLAX, and docusate suppository Zofran for nausea BM 01/14 Heme/ID: 01/07 No active signs of bleeding. Epistaxis resolved 01/12 New onset epistaxis, heparin discontinued Monitor CBC.Hgb 8.6 Will transfuse 2 units packed red blood cells Platelets 180-> 96 today. Will transfuse for platelet count less than 50,000 Obtain HIT panel-follow up results INR pending follow-up results-will consider FFP Epistaxis-ENT consulted-nasal balloons in situ maintain balloons until 01/19 per ENT recommendation, oropharyngeal packing to be removed by ENT today ENT following 01/06 urine, sputum, blood cultures-NGTD 01/06-Legionella urine antigen negative Antibiotics per ID ( Cefepime, Azithromycin) -Dr. Gage following, will continue with nasal packing -Monitor for signs of infections ( Fever, WBC) Endocrine: Close monitoring per ICU protocol-medium dose regimen -- SSI for glycemic control Prophylaxis: GI Prophylaxis Pepcid twice a day DVT Prophylaxis -- SCDs, no pharmacological DVT prophylaxis in the setting of bleeding Heparin discontinued 01/13 Lines: Peripheral IV's. Right IJ 01/06, left vascular catheter 01/14 Dispo: I telephoned Mrs. Muhammad [phone], I updated her regarding the patient's medical status to include increasing ventilatory requirements, bleeding diathesis secondary to uremia and plans for transfusion of any factor deficiency and red blood cells. All questions answered. Discussed WAR[employer]OBE MANAGER at bedside. Palliative care evaluation consulted to assess with goals of care. Weighing the risk benefit ratio of left atrial thrombus / possible CVA vs active ongoing hemorrhage and uremia with transfusion requirements favors holding Heparin, at this time. The patient will receive 2 unit of packed red blood cells today, and continued monitoring CBC. Dispo: This patient remains critically ill with one or more organ systems which are or may become a threat to life. I have spent in excess of 40 minutes discontinuously in the care and management of this patient. This time is exclusive of procedures, and includes, but is not limited to, evaluation of the patient, review of the medical record, discussions with family, consultants, nursing staff, or respiratory therapy, and documentation in the medical record. Physician Marianne Reilly MD January 15, 2017 09:46
[2017-01-15 10:12] LABS: INTERNATIONAL NORMALIZED RATIO 1.1 RATIO; PROTHROMBIN TIME - PATIENT 12.1 SEC (9.8-11.6)
--- NOTE | 2017-01-15 10:51 | HHI.HCPN ---
Reason for visit a. To assist with evaluation and management of symptoms including: pain; dyspnea b. To assist medical decision maker(s) with: better understanding of current medical conditions; weighing benefits/burdens of medical treatment options; making medical treatment decisions. Subjective/Interval History Pt is a 71 year old with CHF [place] [facility] [place] [facility] with dyspnea, afib with rvr. could not convert. EF is 15%. Cath/stent and sent to [facility] [place] for ablation, but found to have left atrial clot. Course of hospitalization complicated by anemia, thrombocytopenia, renal failure ( opted to persue hemodialysis) which was initiated yesterday, with 3 L removed. Pt remains on ventilator with high FI O2. Pt remains intubated and sedated. Pt is in the room. Family/friend interactions Pt's remains very guarded. Spoke to her about pt's overwhelming challenges , and Trach (that it is not possible currently). She stated that his and her really never talked about what to do in this circumstance. She stated "I really would not want to talk about it now." She is very guarded, but amenable my visits. Advance Directives Living Will: Never completed Health Care Surrogate: Never completed Durable Power of Director Of Casino Marketing: Never completed Advance Directive Specifics Date completed: Per , has never completed an advanced directive. . Health Care Surrogate(s): No written designation of health care surrogate. . Documented care wishes: No written documentation of health care goals/preferences . Objective Vital Signs Date Time Temp Pulse Resp B/P Pulse Ox O2 Delivery O2 Flow Rate FiO2 01/15/17 09:51 98.5 113 15 154/63 93 01/15/17 07:26 90 75 01/15/17 07:00 98.6 103 15 134/78 141/61 01/15/17 07:00 75 01/15/17 07:00 103 01/15/17 07:00 92 Mechanical Ventilator 75 01/15/17 04:06 95 85 01/15/17 03:24 98.0 112 14 108/78 94 138/64 01/15/17 03:24 92 Mechanical Ventilator 85 01/15/17 03:24 85 01/15/17 03:24 110 01/15/17 00:43 92 85 01/14/17 23:47 98.6 109 14 112/72 94 160/70 01/14/17 23:47 85 01/14/17 23:47 108 01/14/17 23:47 92 Mechanical Ventilator 85 01/14/17 23:00 93 85 01/14/17 20:45 95 85 01/14/17 19:15 98.5 105 14 118/76 92 154/71 01/14/17 19:15 65 01/14/17 19:15 92 Mechanical Ventilator 65 01/14/17 19:00 105 01/14/17 17:56 92 65 01/14/17 15:00 98.0 130 14 161/82 97 163/72 01/14/17 15:00 120 01/14/17 15:00 90 Mechanical Ventilator 65 01/14/17 15:00 65 01/14/17 12:00 95 100 01/14/17 11:00 65 01/14/17 11:00 139 01/14/17 11:00 90 Mechanical Ventilator 65 01/14/17 11:00 99.1 118 14 108/63 97 107/59 Intake & Output 01/15/17 01/15/17 07:00 19:00 Intake Total 1931 ml Output Total 650 ml Balance 1281 ml IV Total 986 ml Tube Feeding 945 ml Output Urine Total 650 ml # Bowel Movements 0 Physical Exam CONSTITUTIONAL/GENERAL: This is an obese male, intubated, mechanically ventilated, awake and alert, in a coronary intensive care unit bed. Now sedated TUBES/LINES/DRAINS: Right internal jugular central line; arterial line; Alanis catheter; peripheral IV; orotracheal tube; orogastric tube; SCDs SKIN: No jaundice, rashes, or lesions. No wounds seen anteriorly. Skin temperature appropriate. Not diaphoretic. HEAD: Atraumatic. Normocephalic. EYES: Pupils equal and round and reactive. Extraocular motions intact. No scleral icterus. No injection or drainage. Fundi not examined. ENT: Hearing grossly normal. Some dried blood around nose and mouth. Throat without visible erythema, exudates, masses, or lesions though difficult to visualize due to intubations. NECK: Obese neck is difficult to examine. Trachea appears midline. Supple, nontender. No palpable thyroid enlargement or nodularity. CARDIOVASCULAR: Irregular, rapid rhythm without murmurs, gallops, or rubs. No JVD. Peripheral pulses symmetric. RESPIRATORY/CHEST: Symmetric, unlabored respirations. Clear to auscultation. Breath sounds equal bilaterally. No wheezes, rales, or rhonchi. GASTROINTESTINAL: Abdomen obese, soft, non-tender, nondistended. No hepato- splenomegaly, or palpable masses. No guarding. Bowel sounds present. GENITOURINARY: Without palpable bladder distension. Alanis catheter in place. MUSCULOSKELETAL: Extremities without clubbing, cyanosis, or edema. No joint tenderness or effusion noted. No calf tenderness. No mottling. LYMPHATICS: No palpable cervical or supraclavicular adenopathy. NEUROLOGICAL: currently sedated Moves all extremities. PSYCHIATRIC: No obvious anxiety/depression. no apparent hallucinations or other psychotic thought process. . Diagnostic Tests Laboratory Laboratory Tests Test 01/13/17 01/13/17 01/14/17 01/14/17 04:15 11:18 05:05 06:09 White Blood Count 19.6 TH/MM3 28.9 TH/MM3 (4.0-11.0) (4.0-11.0) Red Blood Count 3.24 MIL/MM3 3.09 MIL/MM3 (4.50-5.90) (4.50-5.90) Hemoglobin 9.6 GM/DL 9.1 GM/DL (13.0-17.0) (13.0-17.0) Hematocrit 29.2 % 28.0 % (39.0-51.0) (39.0-51.0) Mean Corpuscular Volume 90.3 FL 90.5 FL (80.0-100.0) (80.0-100.0) Mean Corpuscular Hemoglobin 29.8 PG 29.3 PG (27.0-34.0) (27.0-34.0) Mean Corpuscular Hemoglobin 33.0 % 32.4 % Concent (32.0-36.0) (32.0-36.0) Red Cell Distribution Width 15.6 % 15.3 % (11.6-17.2) (11.6-17.2) Platelet Count 193 TH/MM3 180 TH/MM3 (150-450) (150-450) Mean Platelet Volume 10.7 FL 10.9 FL (7.0-11.0) (7.0-11.0) Neutrophils (%) (Auto) 91.7 % (16.0-70.0) Lymphocytes (%) (Auto) 3.3 % (9.0-44.0) Monocytes (%) (Auto) 4.9 % (0.0-8.0) Eosinophils (%) (Auto) 0.0 % (0.0-4.0) Basophils (%) (Auto) 0.1 % (0.0-2.0) Neutrophils # (Auto) 18.0 TH/MM3 (1.8-7.7) Lymphocytes # (Auto) 0.6 TH/MM3 (1.0-4.8) Monocytes # (Auto) 1.0 TH/MM3 (0-0.9) Eosinophils # (Auto) 0.0 TH/MM3 (0-0.4) Basophils # (Auto) 0.0 TH/MM3 (0-0.2) CBC Comment DIFF FINAL Differential Comment Activated Partial 78.1 SEC 66.8 SEC 22.7 SEC Thromboplast Time (24.3-30.1) (24.3-30.1) (24.3-30.1) Sodium Level 148 MEQ/L 144 MEQ/L (136-145) (136-145) Potassium Level 4.1 MEQ/L 4.2 MEQ/L (3.5-5.1) (3.5-5.1) Chloride Level 104 MEQ/L 102 MEQ/L (98-107) (98-107) Carbon Dioxide Level 30.1 MEQ/L 27.0 MEQ/L (21.0-32.0) (21.0-32.0) Anion Gap 14 MEQ/L (5-15) 15 MEQ/L (5-15) Blood Urea Nitrogen 188 MG/DL 218 MG/DL (7-18) (7-18) Creatinine 4.50 MG/DL 5.42 MG/DL (0.60-1.30) (0.60-1.30) Estimat Glomerular Filtration 13 ML/MIN (>89) 11 ML/MIN (>89) Rate Random Glucose 151 MG/DL 163 MG/DL (74-106) (74-106) Calcium Level 8.1 MG/DL 8.5 MG/DL (8.5-10.1) (8.5-10.1) Phosphorus Level 6.1 MG/DL 6.7 MG/DL (2.5-4.9) (2.5-4.9) Magnesium Level 3.5 MG/DL (1.5-2.5) Blood Gas Puncture Site ART LINE Blood Gas Patient Temperature 98.6 Blood Gas HCO3 25 mmol/L (22-26) Blood Gas Base Excess 2.0 mmol/L (-2-2) Blood Gas Oxygen Saturation 92 % (90-100) Arterial Blood pH 7.50 (7.380-7.420) Arterial Blood Partial 32 mmHg (38-42) Pressure CO2 Arterial Blood Partial 71 mmHg Pressure O2 (61-120) Arterial Blood Oxygen Content 11.7 Vol % (12.0-20.0) Arterial Blood 1.6 % (0-4) Carboxyhemoglobin Arterial Blood Methemoglobin 1.4 % (0-2) Blood Gas Hemoglobin 9.0 G/DL (12.0-16.0) Oxygen Delivery Device VENTILATOR Blood Gas Ventilator Setting PC/AC Blood Gas Inspired Oxygen 65 % Test 01/14/17 01/15/17 01/15/17 01/15/17 09:00 05:20 05:50 09:04 Blood Type O POSITIVE O POSITIVE Antibody Screen NEGATIVE Crossmatch Leukocyte-Reduced Leukocyte-Reduced Red Blood Red Blood Cells Cells Blood Bank Comment White Blood Count 20.3 TH/MM3 (4.0-11.0) Red Blood Count 2.93 MIL/MM3 (4.50-5.90) Hemoglobin 8.6 GM/DL (13.0-17.0) Hematocrit 26.3 % (39.0-51.0) Mean Corpuscular Volume 89.9 FL (80.0-100.0) Mean Corpuscular Hemoglobin 29.3 PG (27.0-34.0) Mean Corpuscular Hemoglobin 32.6 % Concent (32.0-36.0) Red Cell Distribution Width 16.1 % (11.6-17.2) Platelet Count 96 TH/MM3 (150-450) Mean Platelet Volume 10.8 FL (7.0-11.0) Activated Partial 23.2 SEC Thromboplast Time (24.3-30.1) Sodium Level 143 MEQ/L (136-145) Potassium Level 4.4 MEQ/L (3.5-5.1) Chloride Level 102 MEQ/L (98-107) Carbon Dioxide Level 27.5 MEQ/L (21.0-32.0) Anion Gap 14 MEQ/L (5-15) Blood Urea Nitrogen 178 MG/DL (7-18) Creatinine 4.69 MG/DL (0.60-1.30) Estimat Glomerular Filtration 12 ML/MIN (>89) Rate Random Glucose 141 MG/DL (74-106) Calcium Level 8.7 MG/DL (8.5-10.1) Phosphorus Level 7.3 MG/DL (2.5-4.9) Magnesium Level 3.1 MG/DL (1.5-2.5) Blood Gas Puncture Site ART LINE Blood Gas Patient Temperature 98.6 Blood Gas HCO3 25 mmol/L (22-26) Blood Gas Base Excess 1.0 mmol/L (-2-2) Blood Gas Oxygen Saturation 93 % (90-100) Arterial Blood pH 7.41 (7.380-7.420) Arterial Blood Partial 40 mmHg (38-42) Pressure CO2 Arterial Blood Partial 82 mmHg Pressure O2 (61-120) Arterial Blood Oxygen Content 11.6 Vol % (12.0-20.0) Arterial Blood 1.3 % (0-4) Carboxyhemoglobin Arterial Blood Methemoglobin 1.3 % (0-2) Blood Gas Hemoglobin 8.8 G/DL (12.0-16.0) Oxygen Delivery Device VENTILATOR Blood Gas Ventilator Setting PC/AC Blood Gas Inspired Oxygen 85 % Test 01/15/17 09:46 Prothrombin Time 12.1 SEC (9.8-11.6) Prothromb Time International 1.1 RATIO Ratio Result Diagram: 01/15/1751901/15/17519 Microbiology Microbiology Date/Time Procedure Status Source Growth 01/12/17 22:00 Aerobic Blood Culture - Preliminary Resulted Blood Peripheral NO GROWTH IN 2 DAYS 01/12/17 22:00 Anaerobic Blood Culture - Preliminary Resulted Blood Peripheral NO GROWTH IN 2 DAYS 01/12/17 22:02 Aerobic Blood Culture - Preliminary Resulted Blood Line NO GROWTH IN 2 DAYS 01/12/17 22:02 Anaerobic Blood Culture - Preliminary Resulted Blood Line NO GROWTH IN 2 DAYS Procedures * Intubation/mechanical ventilation * Right internal jugular central line placement 01/06/17 * Left radial arterial line 01/05/17 . Assessment and Plan Disease Oriented Problem List: (1) Atrial fibrillation with rapid ventricular response (2) Cardiomyopathy Comment: 10-15% EF . (3) CHF (congestive heart failure) (4) Thrombosis of left atrium without antecedent myocardial infarction (5) Coronary artery disease Comment: Underwent cardiac cath with stenting on 12/29/16 at [facility]. . (6) Pleural effusion Comment: s/P thoracentesis . (7) Acute renal failure (8) Obstructive sleep apnea of adult Comment: Has classic symptoms of sleep apnea but has never undergone formal sleep testing and never on CPAP. . (9) Hard of hearing Symptom Scale: (1) Pain 0-10 Scale: Unable to quantify Comment: No pre-hospital pain syndromes. Mostly now appears to be uncomfortable from ET tube. Other sources of discomfort probably include: Prolonged bedbound status; Alanis catheter; vascular access lines; SCDs; and restraints were needed. . (2) Dyspnea 0-10 Scale: Unable to quantify Comment: Dyspnea probably from a combination of factors including underlying cardiomyopathy; pleural effusion; bibasilar infiltrates. Dyspnea currently managed by mechanical ventilation. . Pertinent Non-Medical Issues Psychosocial: Patient's primary home is in [place]. He and his also own a home locally in [place]. 2 of their 5 children live in [place]. One is visiting currently. Spiritual: Patient comes from a [place] background. Not a regular churchgoer. believes he would appreciate occasional bingo manager visits. Legal: No completed advance directives. Ethical issues impacting care: Patient is awake and alert but having difficulty and frustrations communicating on basic issues. Reluctant to engage him in a goals of care conversation at this point because I am not sure I can trust the results. . Important Contacts Olena Palmer (spouse) [phone] . Prognosis In spite of any ear history of congestive heart failure, the patient's functional status prior to this recent hospitalization was quite good. He remained active and able to do chores around the house. On the other hand, the patient is currently critically ill. His ejection fraction alone of 10-15% comes with a poor prognosis. He now has worsening renal function. He requires anticoagulation to help prevent propagation of his left atrial appendage clot. However, he has already had bleeding complications as a result of anticoagulation. He currently has high O2 requirements. . Code Status: Full Code Plan == Code Status: FULL CODE == Decision Making: The patient was awake and alert. However, he has a very difficult time communicating very basic issues such as location, quantity, of pain. He is also easily frustrated with the communication issues. Therefore, I would not recommend that the patient be his sole decision-maker for critical decisions. At the very least, I would recommend shared decision making. Sensory is no written designation of a health care surrogate, the patient's spouse would be the appropriate proxy decision-maker under the [place] statutes. Today pt is sedated. == Goals of medical treatment: The patient's reports there are no written advance directives and the patient has never had any conversations about treatments he would or would not want to have. She has reaffirm that with me this visit. She had been optimistic, but on my conversation today with her, she did not appear that way. She is very guarded with me and struggling with his decline. She did no wanted to talk with me about goals of care at all today. She almost turned me away from future visit, but later become amenable to visits. == Pain: Currently sedated == Dyspnea: Dyspnea is currently managed by mechanical ventilation. . == Bowel activity: An excellent bowel regimen is currently in place. No further recommendations at this time == I will ask for periodic engineering and development director visits per 's request. == Recommend that medical team members speak frankly with regarding prognosis. == Palliative care we'll continue to follow to assist with symptom management and to further clarify goals of medical treatment as the clinical case evolves. . Time Spent Total Floor Time (mins): 35 Face to Face Time (mins): 20 Attestation To help prompt me to consider important information that might be impacting today's encounter and assessment, information from prior notes written by myself or my colleagues may have been "brought forward" into today's note. My signature on this note, however, is an attestation that I personally performed the exam, history, and/or decision-making noted today, and, unless otherwise indicated, the interactions with patient, family, and staff as well as the review of records all occurred today. I also attest that the listed assessment and stated plan reflect my best clinical judgment today based on the combination of historical information, prior notes, and today's exam/ interactions. When time spent is documented, it refers only to time spent today by the signer, or if indicated, combined time spent today by collaborating physician/nurse practitioner. Wilbert Shultz MD January 15, 2017 10:51
[2017-01-15] MEDS: CEFEPIME INJ 2,000 MG in SODIUM CHLORIDE 0.9% INJ 100 ML IV SCH (12:14)
[2017-01-15] MEDS: AZITHROMYCIN INJ 500 MG in SODIUM CHLOR 0.9% 250 ML INJ 250 ML IV SCH (12:30)
--- NOTE | 2017-01-15 14:15 | HHI.NPPN ---
Subjective General Problems: Anemia, Edema, Heart Disease Renal Failure: Acute History of Present Illness 71-year-old the white male the who is transferred from [facility] to [facility] due to atrial fibrillation with fast ventricular response, he was in the heart catheterization lab and became unstable has to intubated the patient has chronic kidney disease, Cardiomyopathy ejection fraction of only 15% and has severe dilated cardiomyopathy with the clot in left atrium he is on heparin drip and currently on ventilator. Additional Remarks Patient remain on the vent. and sedated, clinically same, intubated Objective Data Data 01/14/17 01/15/17 18:59 06:59 Intake Total 1804 ml 1931 ml Output Total 3880 ml 650 ml Balance -2076 ml 1281 ml IV Total 854 ml 986 ml Tube Feeding 480 ml 945 ml Packed Cells 350 ml Tube Irrigant 120 ml Output Urine Total 850 ml 650 ml Gastric Drainage Total 30 ml Hemodialysis 3000 ml # Bowel Movements 0 Vital Signs Date Time Temp Pulse Resp B/P Pulse Ox O2 Delivery O2 Flow Rate FiO2 01/15/17 11:42 94 75 01/15/17 09:51 98.5 113 15 154/63 93 01/15/17 07:26 90 75 01/15/17 07:00 98.6 103 15 134/78 141/61 01/15/17 07:00 75 01/15/17 07:00 103 01/15/17 07:00 92 Mechanical Ventilator 75 01/15/17 04:06 95 85 01/15/17 03:24 98.0 112 14 108/78 94 138/64 01/15/17 03:24 92 Mechanical Ventilator 85 01/15/17 03:24 85 01/15/17 03:24 110 01/15/17 00:43 92 85 01/14/17 23:47 98.6 109 14 112/72 94 160/70 01/14/17 23:47 85 01/14/17 23:47 108 01/14/17 23:47 92 Mechanical Ventilator 85 01/14/17 23:00 93 85 01/14/17 20:45 95 85 01/14/17 19:15 98.5 105 14 118/76 92 154/71 01/14/17 19:15 65 01/14/17 19:15 92 Mechanical Ventilator 65 01/14/17 19:00 105 01/14/17 17:56 92 65 01/14/17 15:00 98.0 130 14 161/82 97 163/72 01/14/17 15:00 120 01/14/17 15:00 90 Mechanical Ventilator 65 01/14/17 15:00 65 -: 01/15/17 0520 01/15/17 0520 Physical Exam Eyes Eye Exam: Pupils Equal Throat Throat Exam: Oral Mucosa [place] & Moist Pulmonary Resp Exam: Crackles, Rhonchi, Decreased Bases, Diminished Breath Sounds Cardiology CV Exam: Arrhythmia Gastrointestinal/Abdomen GI Exam: Soft, Non-Tender, Distended Extremeties Extremities Exam: Moderate Edema, Pitting Edema, Dependent Edema Neurologic Neuro Exam: Sedated Assessment/Plan Problem List: (1) Acute renal failure Plan: Patient urine out put is lower as started on hemodialysis He has poor ejection fraction and is intubated Severe cardiomyopathy prognosis is guarded. seen during hemodialysis UF 3 L planned PO4 7.3 on HD Pulmonary following Pulmonary blood clots suctioned ENT following (2) CKD (chronic kidney disease) stage 4, GFR 15-29 ml/min Plan: Has high creatinine kidney ultrasound reviewed (3) CHF (congestive heart failure) Plan: Severe cardiomyopathy EF 15% (4) Atrial fibrillation with rapid ventricular response Plan: Has a blood clot in LA appendage Problem Qualifiers (1) CHF (congestive heart failure): Christa Hahn MD January 15, 2017 14:15
[2017-01-15] MEDS: GENTAMICIN SULFATE (DIALYSIS USE ONLY) 20 MG/2 ML VIAL IV PRN (16:36)
[2017-01-15] MEDS: HEPARIN SODIUM - IV 10,000 UNITS/10 ML VIAL PRN (16:36)
--- NOTE | 2017-01-15 19:44 | HHI.PR ---
Subjective Remarks Sedated on Vent support , FIO2 at 80%. was dialyzed. No further nasal bleed. CXR is showing bilateral infiltrates Objective Vital Signs Date Time Temp Pulse Resp B/P Pulse Ox O2 Delivery O2 Flow Rate FiO2 01/15/17 16:30 95 75 01/15/17 15:00 92 Mechanical Ventilator 75 01/15/17 15:00 75 01/15/17 15:00 152 01/15/17 15:00 98.4 152 17 115/53 94 01/15/17 11:42 94 75 01/15/17 11:00 103 01/15/17 11:00 98.3 123 17 154/63 91 01/15/17 11:00 75 01/15/17 11:00 92 Mechanical Ventilator 75 01/15/17 09:51 98.5 113 15 154/63 93 01/15/17 07:26 90 75 01/15/17 07:00 98.6 103 15 134/78 141/61 01/15/17 07:00 75 01/15/17 07:00 103 01/15/17 07:00 92 Mechanical Ventilator 75 01/15/17 04:06 95 85 01/15/17 03:24 98.0 112 14 108/78 94 138/64 01/15/17 03:24 92 Mechanical Ventilator 85 01/15/17 03:24 85 01/15/17 03:24 110 01/15/17 00:43 92 85 01/14/17 23:47 98.6 109 14 112/72 94 160/70 01/14/17 23:47 85 01/14/17 23:47 108 01/14/17 23:47 92 Mechanical Ventilator 85 01/14/17 23:00 93 85 01/14/17 20:45 95 85 I/O 01/14/17 01/14/17 01/14/17 01/15/17 01/15/17 01/15/17 07:00 15:00 23:00 07:00 15:00 23:00 Intake Total 2005 ml 1804 ml 1931 ml 2270 ml Output Total 730 ml 3880 ml 650 ml 630 ml Balance 1275 ml -2076 ml 1281 ml 1640 ml IV Total 1105 ml 854 ml 986 ml 935 ml Tube Feeding 900 ml 480 ml 945 ml 475 ml Packed Cells 350 ml 500 ml Tube Irrigant 120 ml Other 360 ml Output Urine Total 730 ml 850 ml 650 ml 630 ml Gastric Drainage Total 30 ml Hemodialysis 3000 ml # Bowel Movements 1 0 0 Result Diagram: 01/15/1751901/15/17519 Objective Remarks GENERAL: This is an obese, elderly man who is intubated, sedated, assisting the ventilator. HEENT: Head is normocephalic. Pupils are reactive. Throat is clear. NECK: Supple with mild venous distention. Trachea is midline. CHEST: Decreased breath sounds with occasional crackles in both lung bases. HEART: The heart sounds are irregular S1-S2. No murmur. ABDOMEN: Soft. Obese without masses. No organomegaly. EXTREMITIES: 2 + edema. Decreased peripheral pulses. Reflexes are not elicited. The patient is sedated. SKIN: Dry and cool. Assessment and Plan Assessment and Plan IMPRESSION 1. Hypoxic respiratory failure. 2. Left lower lobe atelectasis and possible pneumonia with aspiration. 3. Left pleural effusion resolved. 4. Cardiomyopathy and congestive heart failure. 5. Obstructive sleep apnea. 6. Diabetes mellitus. 7. Atrial fibrillation. 8. Nasopharyngeal bleed Plan : 1. Wean FIO2 to keep sat >90. 2. Dialysis again today 3. Antibiotics per ID. 4. CXR ,CBC BMP in am. 5. Nebs qid , duoneb. 6. Transfuse Packed red cells if HGb <7.5 7. Wean FIO2 and leave PEEP at 12 Julius Burch MD January 15, 2017 19:44
--- NOTE | 2017-01-15 20:44 | HHI.PR ---
Subjective Remarks On mechanical ventilation Objective Vital Signs Date Time Temp Pulse Resp B/P Pulse Ox O2 Delivery O2 Flow Rate FiO2 01/15/17 16:30 95 75 01/15/17 15:00 92 Mechanical Ventilator 75 01/15/17 15:00 75 01/15/17 15:00 152 01/15/17 15:00 98.4 152 17 115/53 94 01/15/17 11:42 94 75 01/15/17 11:00 103 01/15/17 11:00 98.3 123 17 154/63 91 01/15/17 11:00 75 01/15/17 11:00 92 Mechanical Ventilator 75 01/15/17 09:51 98.5 113 15 154/63 93 01/15/17 07:26 90 75 01/15/17 07:00 98.6 103 15 134/78 141/61 01/15/17 07:00 75 01/15/17 07:00 103 01/15/17 07:00 92 Mechanical Ventilator 75 01/15/17 04:06 95 85 01/15/17 03:24 98.0 112 14 108/78 94 138/64 01/15/17 03:24 92 Mechanical Ventilator 85 01/15/17 03:24 85 01/15/17 03:24 110 01/15/17 00:43 92 85 01/14/17 23:47 98.6 109 14 112/72 94 160/70 01/14/17 23:47 85 01/14/17 23:47 108 01/14/17 23:47 92 Mechanical Ventilator 85 01/14/17 23:00 93 85 01/14/17 20:45 95 85 I/O 01/14/17 01/14/17 01/14/17 01/15/17 01/15/17 01/15/17 07:00 15:00 23:00 07:00 15:00 23:00 Intake Total 2005 ml 1804 ml 1931 ml 2270 ml Output Total 730 ml 3880 ml 650 ml 630 ml Balance 1275 ml -2076 ml 1281 ml 1640 ml IV Total 1105 ml 854 ml 986 ml 935 ml Tube Feeding 900 ml 480 ml 945 ml 475 ml Packed Cells 350 ml 500 ml Tube Irrigant 120 ml Other 360 ml Output Urine Total 730 ml 850 ml 650 ml 630 ml Gastric Drainage Total 30 ml Hemodialysis 3000 ml # Bowel Movements 1 0 0 Result Diagram: 01/15/1751901/15/17519 Imaging Sedated, on mechanical ventilation Lungs: ventilated Heart: S1, S23 irregular, tachycardia Abdomen: soft, no mass Ext: no edema Last Impressions Chest X-Ray 01/15/17 0600 Signed Impressions: Service Date/Time: Sunday, January 15, 2017 05:10 - CONCLUSION: 1. No significant change. Ar Lunsford MD Renal Ultrasound 01/09/17 Signed Impressions: Service Date/Time: Monday, January 09, 2017 13:56 - CONCLUSION: 1. Right kidney is sonographically normal. 2. Benign-appearing 2.4 x 1.5 cm cortical cyst in the midpole of the left kidney. 3. Subcentimeter echogenic, non-shadowing foci in the midpole of the left kidney would be unusual for stones and may represent ectopic hilar fat. No hydronephrosis. 4. Urinary bladder is decompressed with a Alanis catheter. Douglas Ward MD Chest Ultrasound 01/09/17 Signed Impressions: Service Date/Time: Monday, January 09, 2017 08:18 - CONCLUSION: No left-sided pleural effusion. The abnormality in the left chest on chest radiograph is likely related to mucous plugging. When patient had a CT scan yesterday the left lung was well aerated. Edgardo Mayorga MD Chest CT 01/08/17599 Signed Impressions: Service Date/Time: Sunday, January 08, 2017 08:46 - CONCLUSION: Massive cardiomegaly with panchamber enlargement extensive coronary calcifications. Stable trace pericardial effusion. Increasing bibasilar consolidative changes with minimal bilateral pleural effusions.. Rhys Fritz MD FACR Thoracentesis 01/08/17 Signed Impressions: Service Date/Time: Sunday, January 08, 2017 16:08 - CONCLUSION: Uncomplicated CT-guided thoracentesis on the right. The left sided thoracentesis was not performed as there was no significant left pleural fluid. The abnormality on most recent chest x-ray was secondary to mucous plugging and left sided atelectasis. Edgardo Mayorga MD Current Medications Medications (Trade) Dose Ordered Sig/Claire Route Start Time Stop Time Status Last Admin Sodium Chloride 500 ml @ 30 mls/hr CONTINUOUS IV 5/5/17 10:00 (NS 500 ml Inj) 500 ml @ 30 mls/hr CONTINUOUS IV 01/05/17 09:15 (Brethine Inj) 1 mg UNSCH PRN SQ 01/05/17 16:00 Famotidine 10 mg 10 mg Q12H IV PUSH 01/05/17 17:00 01/15/17 17:00 (Diprivan 1000 Mg/100ml Inj) 100 ml @ 0 mls/hr TITRATE IV 01/05/17 21:45 01/15/17 16:20 (Tears Naturale Opth Soln) 1 drop Q4H PRN EACH EYE 01/06/17 08:15 01/06/17 21:43 (Peridex 0.12% Liq) 15 ml BID@08,20 MT 01/06/17 20:00 01/15/17 08:18 (Colace Liq) 100 mg Q12HR PO 01/06/17 21:00 01/15/17 09:28 Sennosides 8.8 mg 8.8 mg DAILY PO 01/07/17 09:00 01/15/17 09:28 Cefepime HCl 2000 mg/Sodium Chloride 100 ml @ 200 mls/hr Q24H IV 01/06/17 12:00 01/15/17 12:14 (Zithromax Inj/ NS 250 ml Inj) 250 ml @ 250 mls/hr Q24H IV 01/06/17 13:00 01/15/17 12:30 (NS Flush) 2 ml UNSCH PRN IV FLUSH 01/06/17 13:15 01/12/17 02:25 (NS Flush) 2 ml BID IV FLUSH 01/06/17 21:00 01/15/17 09:29 Miscellaneous Information 1 Q361D XX 01/06/17 13:15 (Chlorhexidine 2% Cloth) Taper DAILY@04 TOP 01/07/17 04:00 01/03/18 03:59 01/14/17 04:00 (Chlorhexidine 2% Cloth) 3 pack UNSCH PRN TOP 01/06/17 13:15 (SoluMEDROL INJ) 40 mg Q6H IV PUSH 01/07/17 09:00 01/15/17 16:16 (D50w (Vial) Inj) 25 ml UNSCH PRN IV PUSH 01/09/17 07:15 Glucagon 1 mg 1 mg UNSCH PRN OTHER 01/09/17 07:15 (Cordarone Inj/ D5W ([place]) Inj) 250 ml @ 0 mls/hr CONTINUOUS IV 01/09/17 19:45 01/15/17 16:20 (NovoLOG SUPPLEMENTAL SCALE) 1 Q6HR SQ 01/10/17 06:00 01/15/17 12:28 (Dulcolax Supp) 10 mg DAILY PRN RECTAL 01/10/17 09:15 01/10/17 09:56 Polyethylene Glycol 17 gm 17 gm DAILY PO 01/10/17 09:15 01/15/17 09:28 (Levophed-Dextrose Drip) 250 ml @ 0 mls/hr TITRATE IV 01/13/17 17:45 01/14/17 10:46 (Brethine Inj) 1 mg UNSCH PRN SQ 01/13/17 17:45 (Afrin 0.05% [place]) 1 spray UNSCH PRN NASAL 01/14/17 15:45 (Coreg) 6.25 mg Q12H PO 01/15/17 21:00 Assessment and Plan Problem List: (1) SOB (shortness of breath) Status: Acute Plan: Still on mechanical ventilation CXR significantly improve Left lung expanded Continue with current management. (2) CHF (congestive heart failure) Status: Acute Plan: Not on pressor. BP 158/85. (3) Atrial fibrillation with rapid ventricular response Status: Acute Plan: In atrial fibrillation with FVR Coreg will be reinitiated. If BP allows, then coreg will be uptitrated. Problem Qualifiers (1) CHF (congestive heart failure): Narcisa Jimenez MD January 15, 2017 20:43
[2017-01-15] MEDS: CARVEDILOL 6.25 MG TAB PO SCH (21:36)
[2017-01-16] VITALS (16 sets, daily range): BP systolic 111–137; BP diastolic 53–76; PULSE 108–125; RESP 16–17; TEMP 98.3–99.6; O2SAT 87–97
[2017-01-16] MEDS: RESP: IPRATROPIUM 0.5 MG/2.5 ML NEB NEB SCH ×6 (00:41→20:54)
[2017-01-16] MEDS: PROPOFOL 1000 MG/100 ML IV SCH ×7 (00:48→21:51)
[2017-01-16] MEDS: CHLORHEXIDINE GLUCONATE 2 % 1 PACK (2 CLOTHS) TOP SCH (03:18)
[2017-01-16] MEDS: methylPREDNISolone SOD SUCC 40 MG/1 ML VIAL IV PUSH SCH ×3 (03:20→20:12)
[2017-01-16] MEDS: FAMOTIDINE 20 MG/2 ML VIAL IV PUSH SCH ×2 (04:35→16:39)
[2017-01-16 05:36] LABS: HEMATOCRIT 32.5 % (39.0-51.0); MEAN CELL VOLUME 87.7 FL (80.0-100.0); MEAN CORPUSCULAR HEMOGLOBIN 28.5 PG (27.0-34.0); MEAN CORPUSCULAR HGB CONC 32.5 % (32.0-36.0); PLATELET COUNT 86 TH/MM3 (150-450); RED CELL DISTRIBUTION WIDTH 16.5 % (11.6-17.2); WHITE BLOOD COUNT 20.1 TH/MM3 (4.0-11.0)
[2017-01-16 05:54] LABS: REVIEW FLAG FINAL
[2017-01-16] MEDS: INSULIN ASPART SUPPLEMENTAL SCALE SQ SCH ×4 (06:00→17:57)
[2017-01-16 06:07] LABS: BICARBONATE 25.7 MEQ/L (21.0-32.0); MAGNESIUM 2.7 MG/DL (1.5-2.5); POTASSIUM 4.5 MEQ/L (3.5-5.1)
[2017-01-16 06:09] LABS: BLOOD GAS BASE EXCESS -1.4 mmol/L (-2-2); BLOOD GAS CARBOXYHEMOGLOBIN 1.3 % (0-4); BLOOD GAS HCO3 23 mmol/L (22-26); BLOOD GAS METHEMOGLOBIN 1.3 % (0-2); BLOOD GAS O2 HGB SATURATION 92 % (90-100); BLOOD GAS OXYGEN CONTENT 14.4 Vol % (12.0-20.0); BLOOD GAS PCO2 37 mmHg (38-42); BLOOD GAS PO2 76 mmHg (61-120); BLOOD GAS TOTAL HGB 11.1 G/DL (12.0-16.0); CRITICAL VALUE NO; OXYGEN DEVICE VENTILATOR; TEMP CORR TO 98.6
[2017-01-16 06:10] LABS: DRAW SITE ART LINE; FIO2 85 %; STAT NO; VENT SETTINGS PC/AC
--- NOTE | 2017-01-16 06:21 | RADRPT ---
EXAM DATE/TIME: 01/16/2017 05:08 [place] COMPARISON: CHEST SINGLE AP, January 15, 2017, 5:10. INDICATIONS : Respiratory distress. MEDICAL HISTORY : Hypertension. SURGICAL HISTORY : Coronary artery stent. ENCOUNTER: Subsequent ACUITY: 1 week PAIN SCORE: Non-responsive. LOCATION: Bilateral chest FINDINGS: A single AP semierect view of the chest was obtained and again demonstrates the endotracheal tube in place with the tip proximally 5 cm above the saturnino. A nasogastric tube is seen coursing through the esophagus and into the stomach. The bilateral internal jugular central venous lines remain in place. Hazy opacity is present in the perihilar regions and both lung bases. There is obscuration of the cos tophrenic angles. The heart size is mildly enlarged. CONCLUSION: 1. No significant change in the bilateral effusions and hazy opacity in both lungs. 2. The patient remains intubated. Ar Lunsford MD on January 16, 2017 at 6:16 Board Certified Radiologist. This report was verified electronically.
[2017-01-16] MEDS ORDERED: MINERAL OIL LIQUID 30 ML CUP PO ONE (08:00)
--- NOTE | 2017-01-16 08:23 | HHI.CCPN ---
Subjective Remarks/Hospital Course This is a 71-year-old gentleman that presented to [facility] secondary to dyspnea and atrial fibrillation with RVR. The patient has a medical history significant for obesity and hypertension. During his hospitalization at [facility], the patient underwent an echocardiogram which showed severe systolic dysfunction with an ejection fraction of 1015 % the patient then underwent a cardiac catheterization showing significance with left circumflex 90%. The patient underwent multiple attempts of unsuccessful synchronized cardioversion. The patient also underwent medical management with beta blockers, and calcium channel blockers that were also unsuccessful. The patient was transferred to [facility] for cardiac ablation with Dr. Jimenez. The patient was scheduled for cardiac ablation, the procedure was canceled. The patient required emergent intubation and required ventilator management a VLADIMIR was performed showing a clot in the left atrial appendage. The patient was placed on IV Cardizem, and an amiodarone infusion. Critical Care medicine was consulted for management. 01/06: Tmax 97.4. The patient remained on elevated vent settings with FiO2 of 1.0 overnight, PEEP requirements were increased to 8, to maintain a PaO2 of greater than [address] scan of the chest was obtained which noted bilateral effusions small, basilar consolidations right worse than the left, and a loculated area representing a possible pneumonia process, empyema, as well as aspiration or just loculated fluid as well as a small pericardial effusion. The patient continues on Cardizem and amiodarone infusions with a heart rate overnight 80s -115. The patient's vasopressor requirements of phenylephrine diminished to 20 mcgs. 01/07: Tmax 99.2. Yesterday the central line was placed for vasoactive medications and CVP monitoring, small hematoma noted near the right IJ area soft no compression of major vessels, with resolution of bleeding in that area. Phenylephrine was discontinued yesterday. The patient heart rate remains today [id number]. Cardizem infusion has been discontinued in the setting of EF of 10-15%. Esmolol infusion to be initiated this a.m.. Coumadin was initiated last night now placed on hold due to patient bleeding from nasopharynx and oropharynx. INR currently 1.2. Plan for CT thorax tomorrow, with possible IR intervention versus CVT consultation for possible empyema the patient will remain on heparin infusion, and transition onto Coumadin after any potential procedures to be initiated. Chest x-ray slightly improved FiO2 decreasing now 70%. Sedation vacation yesterday revealed GCS 11 T, patient alert responsive following commands. With initiation of antibiotics, leukocytosis resolved. ID consulted Dr. Gage. Blood cultures are pending. 01/08: Patient's heart rate 110-[address] scan of the chest imaging revealed fluid. Plan for thoracentesis and and studies of pleural fluid , this afternoon. The patient remains on amiodarone and heparin infusions, per cardiology. Heparin held, for thoracentesis this afternoon, and then will be resumed. The patient was maintained on CPAP trial for approximately one hour yesterday. During sedation vacation patient was alert following commands recognizing family. Plan to resume CPAP trials this afternoon post thoracentesis. 01/09: The patient underwent CT-guided thoracentesis yesterday , on the right side noted 400 cc of fluid was removed , with specimens ordered to be sent for evaluation .This morning chest x-ray performed showing almost complete opacification of the left lung. FiO2 requirements increase patient on FiO2 of 80%, O2 sat 94%. Left chest ultrasound obtained revealing no fluid. Consent obtained BAL performed, revealing emanating from the nearest previously ( patient was noted to have epistaxis with initiation of heparin on 01/06). Blood clots noted in left lung upon visualization with bronchoscopy, saline lavage applied, minimal blood clots removed. The patient was initiated on Mucomyst 10% , and pulmonology was consulted. Dr. Tasia Lama following. The patient shows no signs or evidence of bleeding actively, plan to consult ENT if signs of active bleeding become evident. Hemoglobin remains stable.The patient converted into sinus rhythm is today afternoon. Cardiology management of medications, IV amiodarone discontinued this afternoon. 01/10: Tmax 99.0. Chest x-ray shows slight improvement of left lung today. Plan for repeat bronchoscopy per Dr. Burch this a.m, and the patient continues on Mucomyst. The patient's cardiac rhythm reverted to A. fib last evening, amiodarone IV infusion reinstituted per Dr. Jimenez. 01/11: TMax 100.0. Much improved chest x-ray this morning. The patient continues in A. fib with a rate of 120, he continues on amiodarone, heparin infusion per cardiology. No evidence of active bleeding. 5/12 Patient Remains sedated with Diprivan, intubated. T:99.9. On Neosyn 15 mics , heparin and Amio drips. In Afib with RRV. Patient s/p repeat bronch with BAL yesterday by Dr. Burch and ETT replacement by Dr. Sanchez. On PC/AC with PEEP:14 , FIO2 100%. 01/13: TMax 100.2. Last night the nurse reported that the patient had a small amount of epistaxis, and blood in the oropharynx noted. The area continued to bleed during the night. ENT has been consulted. Heparin has been placed on hold , ASA has been discontinued in the setting of acute renal failure. The patient continues on amiodarone infusion , heart rate 120's. Neosynephrine has been discontinued, and Levophed instituted. Creatinine noted to be 4.5. As per report , states patient does not want dialysis. The patient continues on elevated PEEP of 14. 5/14: Heparin was discontinued yesterday in the setting of continued bleeding in the nasal/ oropharyngeal region. ENT was consulted and nasal packing was applied. During the night the patient still had small noted amount of bleeding from the oropharyngeal area plan today for oropharyngeal packing. Hgb 9, will transfuse .The patient was placed on norepinephrine for currently at 1-2 mcgs per minute. PEEP has been decreased to 12, with adequate oxygenation a PaO2 of 71. 5/15: Tmax 99.0. The patient continues to be anemic and thrombocytopenic, contributory factors being uremia. The patient's /family decided to pursue hemodialysis at this point. The patient received 1 unit of packed red blood cells yesterday. The patient was initiated on dialysis yesterday afternoon, with approximately 3 L removed. Nasal gauze packing removed and placement of nasal balloons by ENT yesterday. Oral gauze packing to be removed today. The patient received 2 separate doses of digoxin, A. fib heart rate ranging 80- < 120. The patient continues to have high ventilatory requirements, FiO2 was increased throughout the night to currently 80%, to maintain O2 sat greater than 92%. Subjective: 01/16: FiO2 at 85%. Large clots removed from oropharynx overnight. Transfused 2 units PRBCs yesterday. No bowel movement. Tolerating tube feeds at 40 cc now with Nepro Objective Vital Signs Date Time Temp Pulse Resp B/P Pulse Ox O2 Delivery O2 Flow Rate FiO2 01/16/17 03:42 93 90 01/16/17 03:28 111 01/16/17 03:28 98.6 16 137/69 122/58 01/16/17 03:28 Mechanical Ventilator Intake and Output 01/15/17 01/15/17 01/16/17 08:00 16:00 00:00 Intake Total 1931 ml 2270 ml Output Total 650 ml 630 ml Balance 1281 ml 1640 ml Result Diagram: 01/16/17 0505 01/16/17 0505 Other Results Microbiology Date/Time Procedure Status Source Growth 01/12/17 22:02 Aerobic Blood Culture - Preliminary Resulted Blood Line NO GROWTH IN 3 DAYS 01/12/17 22:02 Anaerobic Blood Culture - Preliminary Resulted Blood Line NO GROWTH IN 3 DAYS Imaging Last Impressions Chest X-Ray 01/16/17 0600 Signed Impressions: Service Date/Time: Monday, January 16, 2017 05:08 - CONCLUSION: 1. No significant change in the bilateral effusions and hazy opacity in both lungs. 2. The patient remains intubated. Ar Lunsford MD Renal Ultrasound 01/09/17 0000 Signed Impressions: Service Date/Time: Monday, January 09, 2017 13:56 - CONCLUSION: 1. Right kidney is sonographically normal. 2. Benign-appearing 2.4 x 1.5 cm cortical cyst in the midpole of the left kidney. 3. Subcentimeter echogenic, non-shadowing foci in the midpole of the left kidney would be unusual for stones and may represent ectopic hilar fat. No hydronephrosis. 4. Urinary bladder is decompressed with a Alanis catheter. Douglas Ward MD Chest Ultrasound 01/09/17 0000 Signed Impressions: Service Date/Time: Monday, January 09, 2017 08:18 - CONCLUSION: No left-sided pleural effusion. The abnormality in the left chest on chest radiograph is likely related to mucous plugging. When patient had a CT scan yesterday the left lung was well aerated. Edgardo Mayorga MD Chest CT 01/08/17 0600 Signed Impressions: Service Date/Time: Sunday, January 08, 2017 08:46 - CONCLUSION: Massive cardiomegaly with panchamber enlargement extensive coronary calcifications. Stable trace pericardial effusion. Increasing bibasilar consolidative changes with minimal bilateral pleural effusions.. Rhys Fritz MD FACR Thoracentesis 01/08/17 0000 Signed Impressions: Service Date/Time: Sunday, January 08, 2017 16:08 - CONCLUSION: Uncomplicated CT-guided thoracentesis on the right. The left sided thoracentesis was not performed as there was no significant left pleural fluid. The abnormality on most recent chest x-ray was secondary to mucous plugging and left sided atelectasis. Edgardo Mayorga MD Objective Remarks GENERAL: 71-year-old male, critically ill-appearing appropriately stated age, obese male resting in bed SKIN: Warm and dry. No rash HEAD: Atraumatic. Normocephalic. EYES: Pupils equal and round, 3mm and reactive. No scleral icterus. No injection or drainage. ENT: Bilateral Rhino Rocket . Old clots and or NECK: Trachea midline. Unable to assess JVD secondary to body habitus. Right IJ clean dry and intact. Left neck was Vas-Cath there is clean dry and intact CARDIOVASCULAR: Irregular rate and rhythm, Tachycardic. S1, S2 no S4 without murmur RESPIRATORY: Diminished breath sounds throughout. Few crackles in bases bilaterally. Breath sounds equal bilaterally. High vent requirements GASTROINTESTINAL: Abdomen soft, obese non-tender, nondistended. I Mag[place] bowel sounds MUSCULOSKELETAL: Extremities with 1+ peripheral edema. No obvious deformities. Posterior tibialis bilaterally. NEUROLOGICAL: Intubated and sedated. Follows commands moving extremities 4, when off sedation documented last Sunday. Date of Insertion: January 05, 2017 Date of Insertion: January 06, 2017 Line: Central Venous Catheter Side: Right Location: Internal, Jugular A/P Assessment and Plan Neuro/Psych: Epistaxis Propofol for sedation to maintain ventilator synchrony Neurochecks per ICU protocol Daily sedation vacation when clinically appropriate, patient currently on high ventilator requirements PEEP 12 unable to perform 01/07 No active signs of bleeding. Epistaxis resolved 01/12 New onset epistaxis, heparin discontinued Epistaxis-ENT consulted-nasal balloons in situ maintain balloons until 01/19 per ENT recommendation, oropharyngeal packing to be removed by ENT 01/15 ENT following - Dr. Byrd Respiratory: Acute hypoxic respiratory failure Left lung consolidation 2/2 previous event of epistaxis, clotted blood left lung -resolved SONU Probable aspiration Possible multilobar [id number] Bilateral pleural effusions Continue with vent support keep sat >92% On PC/AC RR 14, IP:16, IT:1.25, PEEP;12, FIO2 85, decrease FIO2 as tolerated, CXR 01/16-no change in bibasilar infiltrates Currently on Atrovent aerosols every 4 hours ICU vent bundle. Pulmonology following- Dr. Burch 01/05 CT chest-pericardial effusion small, bilateral effusions, basilar consolidation and right greater than left Solu-Medrol 40 mg IV Q8hr 01/08-right CT-guided thoracentesis-400 cc removed, sent for cytology and cultures s/p bronch 01.11 by- Dr. Burch for blood clots left lung CV: A. fib with RVR Left atrial appendage thrombus Cardiomyopathy Acute Systolic CHF Hypertension Dyslipidemia Currently on no vasopressors Continuing Amiodarone infusion currently at 0.5 mg a minute 01/13- Heparin, ASA discontinued due to epistaxis 01/05 VLADIMIR( Chief Building Inspector)-left atrial thrombus EF 15-20%. Systolic function reduced. Diffuse hyperkinesis. 12/26 [facility] severe systolic dysfunction EF 1015%, mitral valve mild to moderate regurg, LAE, tricuspid Valve-mild to moderate regurg, small pericardial effusion, 12/19 cardiac cath left circumflex 90% occlusion Management per Cardiology -Dr. Jimenez Started on Coreg 6.25 mill grams by mouth twice a day At home on Coreg 25 mg twice a day, aspirin 81 mg daily, hydralazine 25 mg twice a day and HCTZ25 mg by mouth daily Renal: Acute on chronic kidney disease stage IV Nephrology following-Dr. Hahn Monitor renal function, I/O's, avoid nephrotoxins. Cr: today from 3.70 UO 1180 ml in 24 hrs Patient and family declined dialysis 01/12 Vascath placement Hemodialysis initiated 01/14 FEN/GI: Morbid obesity Tube feeds Nepro @50 cc, no residuals noted Pepcid for GI prophylaxis Bowel Colace/Senokot/MiraLAX twice a day. 1 dose of metoprolol today Zofran for nausea Heme: Leukocytosis Normocytic anemia Thrombocytopenia Monitor CBC.Hgb 8.6 Transfuse 2 units PRBCs yesterday. Currently 11 Will transfuse for platelet count less than 50,000 Pending HIT panel-follow up results Follow-up on coags in a.m. ID: Likely aspiration pneumonia 01/06 urine, sputum, blood cultures-NGTD 01/06-Legionella urine antigen negative 01/09 - bronchoscopy - [place]/ID to follow 01/12 - blood cultures 2 - no growth Antibiotics per ID ( Cefepime,Azithromycin/Flagyl) -Dr. Gage following, will continue with nasal packing -Monitor for signs of infections ( Fever, WBC) Endocrine: Close monitoring per ICU protocol-medium dose regimen -- SSI Accu-Cheks every 6 hours for glycemic control Prophylaxis: GI Prophylaxis Pepcid 10 mg IV twice a day DVT Prophylaxis -- SCDs, no pharmacological DVT prophylaxis in the setting of bleeding Heparin discontinued 01/13 Lines: Peripheral IV's. Right IJ 01/06, left vascular catheter 01/14 Dispo: is Olena Muhammad [phone] Discussed [employer] Dispo: This patient remains critically ill with one or more organ systems which are or may become a threat to life. I have spent in excess of 40 minutes discontinuously in the care and management of this patient. This time is exclusive of procedures, and includes, but is not limited to, evaluation of the patient, review of the medical record, discussions with family, consultants, nursing staff, or respiratory therapy, and documentation in the medical record. Koby Cagle MD January 16, 2017 08:23
[2017-01-16] MEDS: CHLORHEXIDINE 0.12% (ORAL KIT) 15 ML CUP MT SCH ×2 (08:26→20:12)
[2017-01-16] MEDS: AMIODARONE INJ 450 MG in D5W (EXCEL BAG) 241 ML IV SCH (08:31)
[2017-01-16] MEDS: SENNOSIDES SYRUP 8.8 MG/5 ML CUP PO SCH ×2 (09:01→20:11)
[2017-01-16] MEDS: DOCUSATE SODIUM 100 MG/10 ML UDC PO SCH ×2 (09:01→20:11)
[2017-01-16] MEDS: SODIUM CHLORIDE 0.9% FLUSH 10 ML FLUSH IV FLUSH SCH ×2 (09:01→20:12)
[2017-01-16] MEDS: CARVEDILOL 6.25 MG TAB PO SCH ×2 (09:01→20:11)
[2017-01-16] MEDS: POLYETHYLENE GLYCOL 17 GM PKG PO SCH ×2 (09:01→20:12)
[2017-01-16] MEDS: metroNIDAZOLE 500 MG TAB PO SCH ×2 (09:45→16:39)
--- NOTE | 2017-01-16 10:09 | HHI.NPPN ---
Subjective General Problems: Anemia, Edema, Heart Disease Renal Failure: Acute History of Present Illness 71-year-old the white male the who is transferred from [facility] to [facility] due to atrial fibrillation with fast ventricular response, he was in the heart catheterization lab and became unstable has to intubated the patient has chronic kidney disease, Cardiomyopathy ejection fraction of only 15% and has severe dilated cardiomyopathy with the clot in left atrium he is on heparin drip and currently on ventilator. Additional Remarks Patient remain on the vent. and sedated, clinically same, intubated Objective Data Data 01/15/17 01/16/17 19:00 07:00 Intake Total 2270 ml 1239 ml Output Total 630 ml 325 ml Balance 1640 ml 914 ml IV Total 935 ml 835 ml Tube Feeding 475 ml 404 ml Packed Cells 500 ml Other 360 ml Output Urine Total 630 ml 325 ml # Bowel Movements 0 0 Vital Signs Date Time Temp Pulse Resp B/P Pulse Ox O2 Delivery O2 Flow Rate FiO2 01/16/17 07:00 125 01/16/17 07:00 92 Mechanical Ventilator 85 01/16/17 07:00 98.3 125 17 116/76 92 135/66 01/16/17 07:00 85 01/16/17 03:42 93 90 01/16/17 03:29 95 01/16/17 03:28 111 01/16/17 03:28 98.6 124 16 137/69 94 122/58 01/16/17 03:28 94 Mechanical Ventilator 95 01/16/17 00:40 93 100 01/16/17 00:25 87 100 01/15/17 23:17 98.7 110 18 124/72 92 130/64 01/15/17 23:17 116 01/15/17 23:17 92 Mechanical Ventilator 100 01/15/17 23:00 100 01/15/17 22:15 95 70 01/15/17 20:30 94 75 01/15/17 20:00 93 Mechanical Ventilator 100 01/15/17 20:00 93 01/15/17 19:21 89 Mechanical Ventilator 80 01/15/17 19:21 98.6 127 18 108/83 89 145/66 01/15/17 19:11 85 01/15/17 19:00 188 01/15/17 16:30 95 75 01/15/17 16:25 95 75 01/15/17 15:00 92 Mechanical Ventilator 75 01/15/17 15:00 75 01/15/17 15:00 152 01/15/17 15:00 98.4 152 17 115/53 94 01/15/17 11:42 94 75 01/15/17 11:00 103 01/15/17 11:00 98.3 123 17 154/63 91 01/15/17 11:00 75 01/15/17 11:00 92 Mechanical Ventilator 75 -: 01/16/17 0505 01/16/17 0505 Physical Exam Eyes Eye Exam: Pupils Equal Throat Throat Exam: Oral Mucosa Collbran & Moist Pulmonary Resp Exam: Crackles, Rhonchi, Decreased Bases, Diminished Breath Sounds Cardiology CV Exam: Arrhythmia Gastrointestinal/Abdomen GI Exam: Soft, Non-Tender, Distended Extremeties Extremities Exam: Moderate Edema, Pitting Edema, Dependent Edema Neurologic Neuro Exam: Sedated Assessment/Plan Problem List: (1) Acute renal failure Plan: Patient urine out put is lower as started on hemodialysis He has poor ejection fraction and is intubated Severe cardiomyopathy prognosis is guarded. hemodialysis yesterday UF 2.3 L taken off CXR Rt pleural effusion FiO2 100% Consider CT rt side if indicated to be started on Flolan Pulmonary following Pulmonary blood clots suctioned ENT following (2) CKD (chronic kidney disease) stage 4, GFR 15-29 ml/min Plan: Has high creatinine kidney ultrasound reviewed (3) CHF (congestive heart failure) Plan: Severe cardiomyopathy EF 15% (4) Atrial fibrillation with rapid ventricular response Plan: Has a blood clot in LA appendage Problem Qualifiers (1) CHF (congestive heart failure): Christa Hahn MD January 16, 2017 10:09
[2017-01-16] MEDS: CEFEPIME INJ 2,000 MG in SODIUM CHLORIDE 0.9% INJ 100 ML IV SCH (11:41)
[2017-01-16] MEDS: EPOPROSTENOL NEB SOLUTION 50 NG/KG/MIN 100 ML NEB SCH ×4 (13:10→19:05)
[2017-01-16] MEDS: AZITHROMYCIN INJ 500 MG in SODIUM CHLOR 0.9% 250 ML INJ 250 ML IV SCH (13:10)
[2017-01-16 13:51] LABS: HEPARIN AB OD 0.454 O.D. (0.000-0.300)
[2017-01-16 13:54] LABS: HEPARIN INDUCED PLATELET AB Weak Positive (NEGATIVE)
--- NOTE | 2017-01-16 15:57 | HHI.HCPN ---
Attempted to see , Olena, for follow-up and support. No family at bedside. Spoke with nurse. Palliative care will continue to follow throughout hospitalization to support family and further address goals of care. Mary Ramirez, SENIOR [employer]EE DEVELOPER January 16, 2017 15:57
[2017-01-16] MEDS: RESP: LEVALBUTEROL HYDROCHLORIDE 0.63 MG/3 ML NEB (SCH) NEB ×2 (16:00→20:54)
[2017-01-16 19:32] LABS: BLOOD GAS BASE EXCESS -4.4 mmol/L (-2-2); BLOOD GAS CARBOXYHEMOGLOBIN 1.4 % (0-4); BLOOD GAS HCO3 19 mmol/L (22-26); BLOOD GAS METHEMOGLOBIN 1.7 % (0-2); BLOOD GAS O2 HGB SATURATION 89 % (90-100); BLOOD GAS OXYGEN CONTENT 13.3 Vol % (12.0-20.0); BLOOD GAS PCO2 31 mmHg (38-42); BLOOD GAS PO2 68 mmHg (61-120); BLOOD GAS TOTAL HGB 10.5 G/DL (12.0-16.0); TEMP CORR TO 98.6
[2017-01-16 19:34] LABS: CRITICAL VALUE YES; DRAW SITE ART LINE; FIO2 55 %; OXYGEN DEVICE VENTILATOR; STAT NO; VENT SETTINGS PC/AC
--- NOTE | 2017-01-16 19:39 | HHI.PR ---
Subjective Remarks Sedated on Vent support , FIO2 at 60%. was dialyzed. Has some Oral,nasal bleed. Was transfused and Hgb is upto 9. On Flolan now. Objective Vital Signs Date Time Temp Pulse Resp B/P Pulse Ox O2 Delivery O2 Flow Rate FiO2 01/16/17 15:00 55 01/16/17 15:00 96 Mechanical Ventilator 55 01/16/17 15:00 113 01/16/17 15:00 99.6 113 16 133/53 97 01/16/17 14:00 96 60 01/16/17 11:00 92 Mechanical Ventilator 85 01/16/17 11:00 98.6 118 16 111/65 93 119/54 01/16/17 11:00 118 01/16/17 11:00 90 01/16/17 10:23 93 90 01/16/17 07:00 125 01/16/17 07:00 92 Mechanical Ventilator 85 01/16/17 07:00 98.3 125 17 116/76 92 135/66 01/16/17 07:00 85 01/16/17 03:42 93 90 01/16/17 03:29 95 01/16/17 03:28 111 01/16/17 03:28 98.6 124 16 137/69 94 122/58 01/16/17 03:28 94 Mechanical Ventilator 95 01/16/17 00:40 93 100 01/16/17 00:25 87 100 01/15/17 23:17 98.7 110 18 124/72 92 130/64 01/15/17 23:17 116 01/15/17 23:17 92 Mechanical Ventilator 100 01/15/17 23:00 100 01/15/17 22:15 95 70 01/15/17 20:30 94 75 01/15/17 20:00 93 Mechanical Ventilator 100 01/15/17 20:00 93 I/O 01/15/17 01/15/17 01/15/17 01/16/17 01/16/17 01/16/17 07:00 15:00 23:00 07:00 15:00 23:00 Intake Total 1931 ml 2270 ml 1239 ml 1498 ml Output Total 650 ml 630 ml 325 ml 260 ml Balance 1281 ml 1640 ml 914 ml 1238 ml IV Total 986 ml 935 ml 835 ml 866 ml Tube Feeding 945 ml 475 ml 404 ml 402 ml Packed Cells 500 ml Other 360 ml 230 ml Output Urine Total 650 ml 630 ml 325 ml 260 ml # Bowel Movements 0 0 0 0 Result Diagram: 01/16/17 0505 01/16/17 0505 Objective Remarks GENERAL: This is an obese, elderly man who is intubated, sedated, assisting the ventilator. HEENT: Head is normocephalic. Pupils are reactive. Throat has secretions NECK: Supple with mild venous distention. Trachea is midline. CHEST: Decreased breath sounds with occasional crackles in both lung bases. HEART: The heart sounds are irregular S1-S2. No murmur. ABDOMEN: Soft. Obese without masses. No organomegaly. EXTREMITIES: 2 + edema. Decreased peripheral pulses. Reflexes are not elicited. The patient is sedated. SKIN: Dry and cool. Assessment and Plan Assessment and Plan IMPRESSION 1. Hypoxic respiratory failure. 2. Left lower lobe atelectasis and possible pneumonia with aspiration. 3. Left pleural effusion resolved. 4. Cardiomyopathy and congestive heart failure. 5. Obstructive sleep apnea. 6. Diabetes mellitus. 7. Atrial fibrillation. 8. Nasopharyngeal bleed Plan : 1. Wean FIO2 to keep sat >90. 2. Cont Flolan. 3. Antibiotics per ID. 4. CXR ,CBC BMP in am. 5. Nebs qid , duoneb. 6. Will need trach soon. 7. Tube feeds at 50 CC 8. Solumedrol 40 mg IV q6h Julius Burch MD January 16, 2017 19:39
[2017-01-17] VITALS (16 sets, daily range): BP systolic 96–144; BP diastolic 52–73; PULSE 97–132; RESP 16; TEMP 98.1–99.8; O2SAT 90–100
[2017-01-17] MEDS: RESP: IPRATROPIUM 0.5 MG/2.5 ML NEB NEB SCH ×5 (00:21→22:20)
[2017-01-17] MEDS: metroNIDAZOLE 500 MG TAB PO SCH ×3 (00:58→17:00)
[2017-01-17] MEDS: INSULIN ASPART SUPPLEMENTAL SCALE SQ SCH ×4 (00:59→18:00)
[2017-01-17] MEDS: AMIODARONE INJ 450 MG in D5W (EXCEL BAG) 241 ML IV SCH (02:04)
[2017-01-17] MEDS: PROPOFOL 1000 MG/100 ML IV SCH ×6 (02:04→22:56)
[2017-01-17] MEDS: CHLORHEXIDINE GLUCONATE 2 % 1 PACK (2 CLOTHS) TOP SCH (04:00)
[2017-01-17] MEDS: RESP: LEVALBUTEROL HYDROCHLORIDE 0.63 MG/3 ML NEB (SCH) NEB ×4 (04:20→22:20)
--- NOTE | 2017-01-17 04:58 | RADRPT ---
EXAM DATE/TIME: 01/17/2017 04:32 [place] COMPARISON: CHEST SINGLE AP, January 16, 2017, 5:08. INDICATIONS : Shortness of breath. MEDICAL HISTORY : Hypertension. Hydronephrosis, AFIB, Thyroid disease SURGICAL HISTORY : Coronary artery stent. Right thoracentesis, Parathyroid removal ENCOUNTER: Subsequent ACUITY: 1 week PAIN SCORE: Non-responsive. LOCATION: Bilateral chest FINDINGS: A single AP semierect view of the chest was obtained and again demonstrates an endotracheal tube in p lace with the tip approximately 5 cm above the saturnino. A nasogastric tube is seen coursing through th e esophagus. The left internal jugular central venous line remains in place. Perihilar and bibasilar opacities again noted without significant change. The costophrenic angles remain blunted. The heart s ize is mildly enlarged. Multiple overlying electrical exam leads are noted. CONCLUSION: 1. No significant change in the bibasal opacities and effusions. The findings are most consistent wit h congestive heart failure. 2. The patient remains intubated. Ar Lunsford MD on January 17, 2017 at 4:55 Board Certified Radiologist. This report was verified electronically.
[2017-01-17] MEDS: FAMOTIDINE 20 MG/2 ML VIAL IV PUSH SCH ×2 (05:34→17:00)
[2017-01-17] MEDS: EPOPROSTENOL NEB SOLUTION 50 NG/KG/MIN 100 ML NEB SCH ×6 (05:34→20:00)
[2017-01-17 05:37] LABS: AUTOMATED NEUTROPHIL # 19.5 TH/MM3 (1.8-7.7); BASOPHIL % 0.2 % (0.0-2.0); HEMATOCRIT 33.1 % (39.0-51.0); LYMPH % 1.2 % (9.0-44.0); LYMPHOCYTE # 0.3 TH/MM3 (1.0-4.8); MEAN CELL VOLUME 87.7 FL (80.0-100.0); MEAN CORPUSCULAR HEMOGLOBIN 28.5 PG (27.0-34.0); MEAN CORPUSCULAR HGB CONC 32.5 % (32.0-36.0); MONO % 5.9 % (0.0-8.0); NEUT % 92.7 % (16.0-70.0); PLATELET COUNT 86 TH/MM3 (150-450); RED BLOOD COUNT 3.77 MIL/MM3 (4.50-5.90); RED CELL DISTRIBUTION WIDTH 16.3 % (11.6-17.2)
[2017-01-17 05:51] LABS: HEMO FLAGS AUTO DIFF
[2017-01-17 06:24] LABS: ALKALINE PHOSPHATASE 43 U/L (45-117); ALT (GPT) 19 U/L (12-78); AST (GOT) 12 U/L (15-37); BLOOD UREA NITROGEN 176 MG/DL (7-18); GLOMERULAR FILTRATION RATE 10 ML/MIN (>89); MAGNESIUM 2.8 MG/DL (1.5-2.5)
[2017-01-17 06:25] LABS: ANION GAP 20 MEQ/L (5-15); BICARBONATE 21.9 MEQ/L (21.0-32.0); CHLORIDE 96 MEQ/L (98-107); POTASSIUM 4.7 MEQ/L (3.5-5.1); SODIUM (NA) 138 MEQ/L (136-145); TOTAL BILIRUBIN ADULT 0.5 MG/DL (0.2-1.0)
--- NOTE | 2017-01-17 06:42 | HHI.CCPN ---
Subjective Remarks/Hospital Course This is a 71-year-old gentleman that presented to [facility] secondary to dyspnea and atrial fibrillation with RVR. The patient has a medical history significant for obesity and hypertension. During his hospitalization at [facility], the patient underwent an echocardiogram which showed severe systolic dysfunction with an ejection fraction of 1015 % the patient then underwent a cardiac catheterization showing significance with left circumflex 90%. The patient underwent multiple attempts of unsuccessful synchronized cardioversion. The patient also underwent medical management with beta blockers, and calcium channel blockers that were also unsuccessful. The patient was transferred to [facility] for cardiac ablation with Dr. Jimenez. The patient was scheduled for cardiac ablation, the procedure was canceled. The patient required emergent intubation and required ventilator management a VLADIMIR was performed showing a clot in the left atrial appendage. The patient was placed on IV Cardizem, and an amiodarone infusion. Critical Care medicine was consulted for management. 01/06: Tmax 97.4. The patient remained on elevated vent settings with FiO2 of 1.0 overnight, PEEP requirements were increased to 8, to maintain a PaO2 of greater than [address] scan of the chest was obtained which noted bilateral effusions small, basilar consolidations right worse than the left, and a loculated area representing a possible pneumonia process, empyema, as well as aspiration or just loculated fluid as well as a small pericardial effusion. The patient continues on Cardizem and amiodarone infusions with a heart rate overnight 80s -115. The patient's vasopressor requirements of phenylephrine diminished to 20 mcgs. 01/07: Tmax 99.2. Yesterday the central line was placed for vasoactive medications and CVP monitoring, small hematoma noted near the right IJ area soft no compression of major vessels, with resolution of bleeding in that area. Phenylephrine was discontinued yesterday. The patient heart rate remains today [id number]. Cardizem infusion has been discontinued in the setting of EF of 10-15%. Esmolol infusion to be initiated this a.m.. Coumadin was initiated last night now placed on hold due to patient bleeding from nasopharynx and oropharynx. INR currently 1.2. Plan for CT thorax tomorrow, with possible IR intervention versus CVT consultation for possible empyema the patient will remain on heparin infusion, and transition onto Coumadin after any potential procedures to be initiated. Chest x-ray slightly improved FiO2 decreasing now 70%. Sedation vacation yesterday revealed GCS 11 T, patient alert responsive following commands. With initiation of antibiotics, leukocytosis resolved. ID consulted Dr. Gage. Blood cultures are pending. 01/08: Patient's heart rate 110-[address] scan of the chest imaging revealed fluid. Plan for thoracentesis and and studies of pleural fluid , this afternoon. The patient remains on amiodarone and heparin infusions, per cardiology. Heparin held, for thoracentesis this afternoon, and then will be resumed. The patient was maintained on CPAP trial for approximately one hour yesterday. During sedation vacation patient was alert following commands recognizing family. Plan to resume CPAP trials this afternoon post thoracentesis. 01/09: The patient underwent CT-guided thoracentesis yesterday , on the right side noted 400 cc of fluid was removed , with specimens ordered to be sent for evaluation .This morning chest x-ray performed showing almost complete opacification of the left lung. FiO2 requirements increase patient on FiO2 of 80%, O2 sat 94%. Left chest ultrasound obtained revealing no fluid. Consent obtained BAL performed, revealing emanating from the nearest previously ( patient was noted to have epistaxis with initiation of heparin on 01/06). Blood clots noted in left lung upon visualization with bronchoscopy, saline lavage applied, minimal blood clots removed. The patient was initiated on Mucomyst 10% , and pulmonology was consulted. Dr. Tasia Lama following. The patient shows no signs or evidence of bleeding actively, plan to consult ENT if signs of active bleeding become evident. Hemoglobin remains stable.The patient converted into sinus rhythm is today afternoon. Cardiology management of medications, IV amiodarone discontinued this afternoon. 01/10: Tmax 99.0. Chest x-ray shows slight improvement of left lung today. Plan for repeat bronchoscopy per Dr. Burch this a.m, and the patient continues on Mucomyst. The patient's cardiac rhythm reverted to A. fib last evening, amiodarone IV infusion reinstituted per Dr. Jimenez. 01/11: TMax 100.0. Much improved chest x-ray this morning. The patient continues in A. fib with a rate of 120, he continues on amiodarone, heparin infusion per cardiology. No evidence of active bleeding. 5/12 Patient Remains sedated with Diprivan, intubated. T:99.9. On Neosyn 15 mics , heparin and Amio drips. In Afib with RRV. Patient s/p repeat bronch with BAL yesterday by Dr. Burch and ETT replacement by Dr. Sanchez. On PC/AC with PEEP:14 , FIO2 100%. 01/13: TMax 100.2. Last night the nurse reported that the patient had a small amount of epistaxis, and blood in the oropharynx noted. The area continued to bleed during the night. ENT has been consulted. Heparin has been placed on hold , ASA has been discontinued in the setting of acute renal failure. The patient continues on amiodarone infusion , heart rate 120's. Neosynephrine has been discontinued, and Levophed instituted. Creatinine noted to be 4.5. As per report , states patient does not want dialysis. The patient continues on elevated PEEP of 14. 5/14: Heparin was discontinued yesterday in the setting of continued bleeding in the nasal/ oropharyngeal region. ENT was consulted and nasal packing was applied. During the night the patient still had small noted amount of bleeding from the oropharyngeal area plan today for oropharyngeal packing. Hgb 9, will transfuse .The patient was placed on norepinephrine for currently at 1-2 mcgs per minute. PEEP has been decreased to 12, with adequate oxygenation a PaO2 of 71. 5/15: Tmax 99.0. The patient continues to be anemic and thrombocytopenic, contributory factors being uremia. The patient's /family decided to pursue hemodialysis at this point. The patient received 1 unit of packed red blood cells yesterday. The patient was initiated on dialysis yesterday afternoon, with approximately 3 L removed. Nasal gauze packing removed and placement of nasal balloons by ENT yesterday. Oral gauze packing to be removed today. The patient received 2 separate doses of digoxin, A. fib heart rate ranging 80- < 120. The patient continues to have high ventilatory requirements, FiO2 was increased throughout the night to currently 80%, to maintain O2 sat greater than 92%. 01/16: FiO2 at 85%. Large clots removed from oropharynx overnight. Transfused 2 units PRBCs yesterday. No bowel movement. Tolerating tube feeds at 40 cc now with Nepro Subjective: 01/17: Maximum 0.6. CURRENT TEMPERATURE 98.1. Central line pulled out yesterday. Flolan initiated yesterday and FiO2 down to 65%. Tolerating tube feeds. No bowel movement. Arousable weakly follow commands yesterday Objective Vital Signs Date Time Temp Pulse Resp B/P Pulse Ox O2 Delivery O2 Flow Rate FiO2 01/17/17 05:08 90 70 01/17/17 03:47 98.1 111 16 102/68 98/55 01/17/17 03:47 Mechanical Ventilator Intake and Output 01/16/17 01/16/17 01/17/17 08:00 16:00 00:00 Intake Total 1239 ml 1498 ml Output Total 325 ml 260 ml Balance 914 ml 1238 ml Result Diagram: 01/17/17 0505 01/17/17 0505 Other Results Microbiology Date/Time Procedure Status Source Growth 01/12/17 22:02 Aerobic Blood Culture - Preliminary Resulted Blood Line NO GROWTH IN 4 DAYS 01/12/17 22:02 Anaerobic Blood Culture - Preliminary Resulted Blood Line NO GROWTH IN 4 DAYS Imaging Last Impressions Chest X-Ray 01/17/17 0600 Signed Impressions: Service Date/Time: Tuesday, January 17, 2017 04:32 - CONCLUSION: 1. No significant change in the bibasal opacities and effusions. The findings are most consistent with congestive heart failure. 2. The patient remains intubated. Ar Lunsford MD Renal Ultrasound 01/09/17 0000 Signed Impressions: Service Date/Time: Monday, January 09, 2017 13:56 - CONCLUSION: 1. Right kidney is sonographically normal. 2. Benign-appearing 2.4 x 1.5 cm cortical cyst in the midpole of the left kidney. 3. Subcentimeter echogenic, non-shadowing foci in the midpole of the left kidney would be unusual for stones and may represent ectopic hilar fat. No hydronephrosis. 4. Urinary bladder is decompressed with a Alanis catheter. Douglas Ward MD Chest Ultrasound 01/09/17 0000 Signed Impressions: Service Date/Time: Monday, January 09, 2017 08:18 - CONCLUSION: No left-sided pleural effusion. The abnormality in the left chest on chest radiograph is likely related to mucous plugging. When patient had a CT scan yesterday the left lung was well aerated. Edgardo Mayorga MD Chest CT 01/08/17 0600 Signed Impressions: Service Date/Time: Sunday, January 08, 2017 08:46 - CONCLUSION: Massive cardiomegaly with panchamber enlargement extensive coronary calcifications. Stable trace pericardial effusion. Increasing bibasilar consolidative changes with minimal bilateral pleural effusions.. Rhys Fritz MD FACR Thoracentesis 01/08/17 0000 Signed Impressions: Service Date/Time: Sunday, January 08, 2017 16:08 - CONCLUSION: Uncomplicated CT-guided thoracentesis on the right. The left sided thoracentesis was not performed as there was no significant left pleural fluid. The abnormality on most recent chest x-ray was secondary to mucous plugging and left sided atelectasis. Edgardo Mayorga MD Objective Remarks GENERAL: 71-year-old male, critically ill-appearing appropriately stated age, obese male resting in bed SKIN: Warm and dry. No rash HEAD: Atraumatic. Normocephalic. EYES: Pupils equal and round, 3mm and reactive. No scleral icterus. No injection or drainage. ENT: Bilateral Rhino Rocket . Old clots and or NECK: Trachea midline. Unable to assess JVD secondary to body habitus. Left neck was Vas-Cath is clean dry and intact CARDIOVASCULAR: Irregular rate and rhythm, Tachycardic. S1, S2 no S4 without murmur RESPIRATORY: Diminished breath sounds throughout. Few crackles in bases bilaterally. Breath sounds equal bilaterally. High vent requirements GASTROINTESTINAL: Abdomen soft, obese non-tender, nondistended. I Magana bowel sounds MUSCULOSKELETAL: Extremities with 1+ peripheral edema. No obvious deformities. Posterior tibialis bilaterally. NEUROLOGICAL: Intubated and sedated. Follows commands moving extremities 4, when off sedation documented last Sunday. Date of Insertion: January 05, 2017 Date of Insertion: January 06, 2017 Date of Removal: January 16, 2017 Line: Central Venous Catheter Side: Right Location: Internal, Jugular A/P Assessment and Plan Neuro/Psych: Epistaxis Propofol for sedation to maintain ventilator synchrony Neurochecks per ICU protocol Daily sedation vacation when clinically appropriate, patient currently on high ventilator requirements PEEP 12 unable to perform / No active signs of bleeding. Epistaxis resolved 01/12 New onset epistaxis, heparin discontinued Epistaxis-ENT consulted-nasal balloons in situ maintain balloons until 01/19 per ENT recommendation, oropharyngeal packing to be removed by ENT 01/15 ENT following - Dr. Byrd Respiratory: Acute hypoxic respiratory failure Left lung consolidation 2/2 previous event of epistaxis, clotted blood left lung -resolved SONU Probable aspiration Possible multilobar [id number] Bilateral pleural effusions Continue with vent support keep sat >92% On PC/AC RR 16, IP:14, IT:1.5, PEEP;10, FIO2 65, decrease FIO2 as tolerated, Flolan currently 50 ng/kg per minute CXR 01/17-no change in bibasilar infiltrates Currently on Xopenex and Atrovent aerosols every 6 hours ICU vent bundle. Pulmonology following- Dr. Burch 01/05 CT chest-pericardial effusion small, bilateral effusions, basilar consolidation and right greater than left Solu-Medrol 40 mg IV Q8hr 01/08-right CT-guided thoracentesis-400 cc removed, sent for cytology and cultures s/p bronch . by- Dr. Burch for blood clots left lung CV: A. fib with RVR Left atrial appendage thrombus Cardiomyopathy Acute Systolic CHF Hypertension Dyslipidemia Currently on norepinephrine at 1/m Currently on Amiodarone infusion currently at 0.5 mg a minute Transition to 200 mg twice a day 01/13- Heparin, ASA discontinued due to epistaxis 01/05 VLADIMIR( Dialysis Nurse)-left atrial thrombus EF 15-20%. Systolic function reduced. Diffuse hyperkinesis. 12/26 [facility] severe systolic dysfunction EF 1015%, mitral valve mild to moderate regurg, LAE, tricuspid Valve-mild to moderate regurg, small pericardial effusion, 12/19 cardiac cath left circumflex 90% occlusion Management per Cardiology -Dr. Jimenez 01/15/started on Coreg 6.25 mill grams by mouth twice a day At home on Coreg 25 mg twice a day, aspirin 81 mg daily, hydralazine 25 mg twice a day and HCTZ25 mg by mouth daily Renal: Acute on chronic kidney disease stage IV Nephrology following-Dr. Hahn Monitor renal function, I/O's, avoid nephrotoxins. Will need hemodialysis today Patient and family declined dialysis 01/12 Vascath placement Hemodialysis initiated 01/14 FEN/GI: Morbid obesity Tube feeds Nepro @50 cc, no residuals noted Pepcid for GI prophylaxis Bowel Colace/Senokot/MiraLAX twice a day. Lactulose 4 times a day initiated 1 dose of mineral oil today Zofran for nausea Heme: Leukocytosis Normocytic anemia Thrombocytopenia Monitor CBC.Hgb currently stable around 10 Transfuse 3 units PRBCs and submission Will transfuse for platelet count less than 50,000 Weakly positive HIT panel-CLIFFORD ordered. Not a candidate for DTI with epistaxis ID: Likely aspiration pneumonia 01/06 urine, sputum, blood cultures-NGTD 01/06-Legionella urine antigen negative 01/09 - bronchoscopy - yeast/ID to follow 01/12 - blood cultures 2 - no growth Antibiotics per ID ( Cefepime,Azithromycin/Flagyl) -Dr. Gage following, will continue with nasal packing -Monitor for signs of infections ( Fever, WBC) Endocrine: Close monitoring per ICU protocol-medium dose regimen -- SSI Accu-Cheks every 6 hours for glycemic control Prophylaxis: GI Prophylaxis Pepcid 10 mg IV twice a day DVT Prophylaxis -- SCDs, no pharmacological DVT prophylaxis in the setting of bleeding Heparin discontinued 01/13 Lines: Peripheral IV's. Right IJ 01/06, left vascular catheter 01/14 Dispo: is Olena Muhammad [phone] Discussed PREPARER SAMPLES AND REPAIRS Dispo: This patient remains critically ill with one or more organ systems which are or may become a threat to life. I have spent in excess of 35 minutes discontinuously in the care and management of this patient. This time is exclusive of procedures, and includes, but is not limited to, evaluation of the patient, review of the medical record, discussions with family, consultants, nursing staff, or respiratory therapy, and documentation in the medical record. Koby Cagle MD January 17, 2017 06:42
[2017-01-17] MEDS ORDERED: GLYCERIN ADULT 2 GM SUPP RECTAL PRN (06:45)
[2017-01-17] MEDS ORDERED: GLYCERIN ADULT 2 GM SUPP RECTAL ONE (06:45)
[2017-01-17] MEDS ORDERED: MINERAL OIL LIQUID 30 ML CUP PO ONE (06:45)
[2017-01-17 07:27] LABS: PLATELET ESTIMATE SMEAR LOW (NORMAL); PLATELET MORPHOLOGY NORMAL (NORMAL); SCAN/DIFF AUTO DIFF CONFIRMED
[2017-01-17] MEDS: LACTULOSE SYRUP 20 GM/30 ML CUP PO SCH ×4 (08:52→21:12)
[2017-01-17] MEDS: CARVEDILOL 6.25 MG TAB PO SCH ×2 (08:52→21:16)
[2017-01-17] MEDS: DOCUSATE SODIUM 100 MG/10 ML UDC PO SCH ×2 (08:52→21:12)
[2017-01-17] MEDS: AMIODARONE 200 MG TAB PO SCH ×2 (08:52→21:12)
[2017-01-17] MEDS: POLYETHYLENE GLYCOL 17 GM PKG PO SCH ×2 (08:52→21:12)
[2017-01-17] MEDS: methylPREDNISolone SOD SUCC 40 MG/1 ML VIAL IV PUSH SCH ×3 (08:53→21:17)
[2017-01-17] MEDS: SODIUM CHLORIDE 0.9% FLUSH 10 ML FLUSH IV FLUSH SCH ×2 (08:54→21:12)
[2017-01-17] MEDS: CHLORHEXIDINE 0.12% (ORAL KIT) 15 ML CUP MT SCH ×3 (08:56→21:11)
[2017-01-17] MEDS ORDERED: SODIUM CHLORIDE 0.9% IV SCH (09:00)
[2017-01-17] MEDS: SENNOSIDES SYRUP 8.8 MG/5 ML CUP PO SCH ×2 (09:00→21:12)
[2017-01-17] MEDS ORDERED: DESMOPRESSIN ACETATE 4 MCG/ML VIAL IV PUSH SCH (09:00)
[2017-01-17] MEDS ORDERED: DESMOPRESSIN IV SCH (09:00)
--- NOTE | 2017-01-17 10:21 | HHI.HCPN ---
Reason for visit a. To assist with evaluation and management of symptoms including: pain; dyspnea b. To assist medical decision maker(s) with: better understanding of current medical conditions; weighing benefits/burdens of medical treatment options; making medical treatment decisions. Subjective/Interval History Pt is a 71 year old with CHF admitted to [facility] 12/25/2016 with dyspnea, afib with rvr. could not convert. EF is 15%. Cath/stent and sent to [facility] for ablation, but found to have left atrial clot. Course of hospitalization complicated by anemia, thrombocytopenia, renal failure ( opted to persue hemodialysis) which was this past weekend. Since my last visit: Large clots removed from oropharynx and PRBC given. Floan started. FIO2 decrease down to 65%, medical assistant cardiology following. Pt Cr is 5.7 nephrology following. Pt remains intubated. Chest XRay note no significant change in bibasal opacities and effusions, Findings consistent with CHF. Continue to have leukocytosis. Pt is Afebrile. On my visit, pt is sedated. PEEP is now 10. Sedated. Family/friend interactions no family at bedside today. I was able to reach her by phone. Ask to touch base with me tomorrow, as pt will undergo bronchoscopy. Advance Directives Living Will: Never completed Health Care Surrogate: Never completed Durable Power of Kier Tender: Never completed Advance Directive Specifics Date completed: Per , has never completed an advanced directive. . Health Care Surrogate(s): No written designation of health care surrogate. . Documented care wishes: No written documentation of health care goals/preferences . Objective Vital Signs Date Time Temp Pulse Resp B/P Pulse Ox O2 Delivery O2 Flow Rate FiO2 01/17/17 08:04 94 65 01/17/17 07:23 95 Mechanical Ventilator 65 01/17/17 07:23 97 01/17/17 07:23 99.1 97 16 112/73 95 119/56 01/17/17 07:23 65 01/17/17 05:08 90 70 01/17/17 04:22 98 65 01/17/17 03:47 65 01/17/17 03:47 98.1 111 16 102/68 95 98/55 01/17/17 03:47 105 01/17/17 03:47 95 Mechanical Ventilator 65 01/17/17 01:19 97 70 01/16/17 23:17 99.2 108 16 112/66 95 129/64 01/16/17 23:17 95 Mechanical Ventilator 75 01/16/17 23:17 111 01/16/17 23:17 75 01/16/17 22:50 92 70 01/16/17 20:35 97 60 01/16/17 19:39 92 60 01/16/17 19:21 99.0 122 17 119/58 92 01/16/17 19:21 92 Mechanical Ventilator 60 01/16/17 19:21 55 01/16/17 19:00 122 01/16/17 16:30 94 50 01/16/17 15:00 55 01/16/17 15:00 96 Mechanical Ventilator 55 01/16/17 15:00 113 01/16/17 15:00 99.6 113 16 133/53 97 01/16/17 14:00 96 60 01/16/17 11:00 92 Mechanical Ventilator 85 01/16/17 11:00 98.6 118 16 111/65 93 119/54 01/16/17 11:00 118 01/16/17 11:00 90 01/16/17 10:23 93 90 Intake & Output 01/17/17 01/17/17 07:00 19:00 Intake Total 1619 ml Output Total 200 ml Balance 1419 ml IV Total 1037 ml Tube Feeding 582 ml Output Urine Total 200 ml Physical Exam CONSTITUTIONAL/GENERAL: This is an obese male, intubated, mechanically ventilated, awake and alert, in a coronary intensive care unit bed. Now sedated TUBES/LINES/DRAINS: Right internal jugular central line; arterial line; Alanis catheter; peripheral IV; orotracheal tube; orogastric tube; SCDs SKIN: No jaundice, rashes, or lesions. No wounds seen anteriorly. Skin temperature appropriate. Not diaphoretic. HEAD: Atraumatic. Normocephalic. EYES: Pupils equal and round and reactive. Extraocular motions intact. No scleral icterus. No injection or drainage. Fundi not examined. ENT: Hearing grossly normal. Some dried blood around nose and mouth. Throat without visible erythema, exudates, masses, or lesions though difficult to visualize due to intubations. NECK: Obese neck is difficult to examine. Trachea appears midline. Supple, nontender. No palpable thyroid enlargement or nodularity. CARDIOVASCULAR: Irregular, rapid rhythm without murmurs, gallops, or rubs. No JVD. Peripheral pulses symmetric. RESPIRATORY/CHEST: Symmetric, unlabored respirations. Clear to auscultation. Breath sounds equal bilaterally. No wheezes, rales, or rhonchi. GASTROINTESTINAL: Abdomen obese, soft, non-tender, nondistended. No hepato- splenomegaly, or palpable masses. No guarding. Bowel sounds present. GENITOURINARY: Without palpable bladder distension. Alanis catheter in place. MUSCULOSKELETAL: Extremities without clubbing, cyanosis, or edema. No joint tenderness or effusion noted. No calf tenderness. No mottling. LYMPHATICS: No palpable cervical or supraclavicular adenopathy. NEUROLOGICAL: currently sedated Moves all extremities. PSYCHIATRIC: No obvious anxiety/depression. no apparent hallucinations or other psychotic thought process. . Diagnostic Tests Laboratory Laboratory Tests Test 01/15/17 01/15/17 01/15/17 01/15/17 05:20 05:50 09:04 09:46 White Blood Count 20.3 TH/MM3 (4.0-11.0) Red Blood Count 2.93 MIL/MM3 (4.50-5.90) Hemoglobin 8.6 GM/DL (13.0-17.0) Hematocrit 26.3 % (39.0-51.0) Mean Corpuscular Volume 89.9 FL (80.0-100.0) Mean Corpuscular Hemoglobin 29.3 PG (27.0-34.0) Mean Corpuscular Hemoglobin 32.6 % Concent (32.0-36.0) Red Cell Distribution Width 16.1 % (11.6-17.2) Platelet Count 96 TH/MM3 (150-450) Mean Platelet Volume 10.8 FL (7.0-11.0) Activated Partial 23.2 SEC Thromboplast Time (24.3-30.1) Sodium Level 143 MEQ/L (136-145) Potassium Level 4.4 MEQ/L (3.5-5.1) Chloride Level 102 MEQ/L (98-107) Carbon Dioxide Level 27.5 MEQ/L (21.0-32.0) Anion Gap 14 MEQ/L (5-15) Blood Urea Nitrogen 178 MG/DL (7-18) Creatinine 4.69 MG/DL (0.60-1.30) Estimat Glomerular Filtration 12 ML/MIN (>89) Rate Random Glucose 141 MG/DL (74-106) Calcium Level 8.7 MG/DL (8.5-10.1) Phosphorus Level 7.3 MG/DL (2.5-4.9) Magnesium Level 3.1 MG/DL (1.5-2.5) Hepatitis A IgM Antibody NEGATIVE (NEGATIVE) Hepatitis B Surface Antigen NEGATIVE (NEGATIVE) Hepatitis B Core IgM Antibody NEGATIVE (NEGATIVE) Hepatitis C Antibody NEGATIVE (NEGATIVE) Blood Gas Puncture Site ART LINE Blood Gas Patient Temperature 98.6 Blood Gas HCO3 25 mmol/L (22-26) Blood Gas Base Excess 1.0 mmol/L (-2-2) Blood Gas Oxygen Saturation 93 % (90-100) Arterial Blood pH 7.41 (7.380-7.420) Arterial Blood Partial 40 mmHg (38-42) Pressure CO2 Arterial Blood Partial 82 mmHg Pressure O2 (61-120) Arterial Blood Oxygen Content 11.6 Vol % (12.0-20.0) Arterial Blood 1.3 % (0-4) Carboxyhemoglobin Arterial Blood Methemoglobin 1.3 % (0-2) Blood Gas Hemoglobin 8.8 G/DL (12.0-16.0) Oxygen Delivery Device VENTILATOR Blood Gas Ventilator Setting PC/AC Blood Gas Inspired Oxygen 85 % Blood Type O POSITIVE Crossmatch Leukocyte-Reduced Red Blood Cells Blood Bank Comment Prothrombin Time 12.1 SEC (9.8-11.6) Prothromb Time International 1.1 RATIO Ratio Heparin-Induced Platelet Ab Weak Positive (Lisa) (NEGATIVE) HIPA Patient Optical Density 0.454 O.D. (0.000-0.300) Test 01/16/17 01/16/17 01/16/17 01/17/17 05:05 05:55 19:18 05:05 White Blood Count 20.1 TH/MM3 21.0 TH/MM3 (4.0-11.0) (4.0-11.0) Red Blood Count 3.70 MIL/MM3 3.77 MIL/MM3 (4.50-5.90) (4.50-5.90) Hemoglobin 10.6 GM/DL 10.8 GM/DL (13.0-17.0) (13.0-17.0) Hematocrit 32.5 % 33.1 % (39.0-51.0) (39.0-51.0) Mean Corpuscular Volume 87.7 FL 87.7 FL (80.0-100.0) (80.0-100.0) Mean Corpuscular Hemoglobin 28.5 PG 28.5 PG (27.0-34.0) (27.0-34.0) Mean Corpuscular Hemoglobin 32.5 % 32.5 % Concent (32.0-36.0) (32.0-36.0) Red Cell Distribution Width 16.5 % 16.3 % (11.6-17.2) (11.6-17.2) Platelet Count 86 TH/MM3 86 TH/MM3 (150-450) (150-450) Mean Platelet Volume 10.9 FL 12.1 FL (7.0-11.0) (7.0-11.0) Sodium Level 139 MEQ/L 138 MEQ/L (136-145) (136-145) Potassium Level 4.5 MEQ/L 4.7 MEQ/L (3.5-5.1) (3.5-5.1) Chloride Level 99 MEQ/L 96 MEQ/L (98-107) (98-107) Carbon Dioxide Level 25.7 MEQ/L 21.9 MEQ/L (21.0-32.0) (21.0-32.0) Anion Gap 14 MEQ/L (5-15) 20 MEQ/L (5-15) Blood Urea Nitrogen 152 MG/DL 176 MG/DL (7-18) (7-18) Creatinine 4.50 MG/DL 5.70 MG/DL (0.60-1.30) (0.60-1.30) Estimat Glomerular Filtration 13 ML/MIN (>89) 10 ML/MIN (>89) Rate Random Glucose 155 MG/DL 128 MG/DL (74-106) (74-106) Calcium Level 8.3 MG/DL 7.9 MG/DL (8.5-10.1) (8.5-10.1) Phosphorus Level 8.5 MG/DL 8.6 MG/DL (2.5-4.9) (2.5-4.9) Magnesium Level 2.7 MG/DL 2.8 MG/DL (1.5-2.5) (1.5-2.5) Blood Gas Puncture Site ART LINE ART LINE Blood Gas Patient Temperature 98.6 98.6 Blood Gas HCO3 23 mmol/L 19 mmol/L (22-26) (22-26) Blood Gas Base Excess -1.4 mmol/L -4.4 mmol/L (-2-2) (-2-2) Blood Gas Oxygen Saturation 92 % (90-100) 89 % (90-100) Arterial Blood pH 7.41 7.41 (7.380-7.420) (7.380-7.420) Arterial Blood Partial 37 mmHg (38-42) 31 mmHg (38-42) Pressure CO2 Arterial Blood Partial 76 mmHg 68 mmHg Pressure O2 (61-120) (61-120) Arterial Blood Oxygen Content 14.4 Vol % 13.3 Vol % (12.0-20.0) (12.0-20.0) Arterial Blood 1.3 % (0-4) 1.4 % (0-4) Carboxyhemoglobin Arterial Blood Methemoglobin 1.3 % (0-2) 1.7 % (0-2) Blood Gas Hemoglobin 11.1 G/DL 10.5 G/DL (12.0-16.0) (12.0-16.0) Oxygen Delivery Device VENTILATOR VENTILATOR Blood Gas Ventilator Setting PC/AC PC/AC Blood Gas Inspired Oxygen 85 % 55 % Neutrophils (%) (Auto) 92.7 % (16.0-70.0) Lymphocytes (%) (Auto) 1.2 % (9.0-44.0) Monocytes (%) (Auto) 5.9 % (0.0-8.0) Eosinophils (%) (Auto) 0.0 % (0.0-4.0) Basophils (%) (Auto) 0.2 % (0.0-2.0) Neutrophils # (Auto) 19.5 TH/MM3 (1.8-7.7) Lymphocytes # (Auto) 0.3 TH/MM3 (1.0-4.8) Monocytes # (Auto) 1.2 TH/MM3 (0-0.9) Eosinophils # (Auto) 0.0 TH/MM3 (0-0.4) Basophils # (Auto) 0.0 TH/MM3 (0-0.2) CBC Comment AUTO DIFF Differential Comment AUTO DIFF CONFIRMED Platelet Estimate LOW (NORMAL) Platelet Morphology Comment NORMAL (NORMAL) Total Bilirubin 0.5 MG/DL (0.2-1.0) Aspartate Amino Transf 12 U/L (15-37) (AST/SGOT) Alanine Aminotransferase 19 U/L (12-78) (ALT/SGPT) Alkaline Phosphatase 43 U/L (45-117) Total Protein 5.4 GM/DL (6.4-8.2) Albumin 2.1 GM/DL (3.4-5.0) Result Diagram: 01/17/17 0505 01/17/17 0505 Procedures * Intubation/mechanical ventilation * Right internal jugular central line placement 01/06/17 * Left radial arterial line 01/05/17 . Assessment and Plan Disease Oriented Problem List: (1) Atrial fibrillation with rapid ventricular response (2) Cardiomyopathy Comment: 10-15% EF . (3) CHF (congestive heart failure) (4) Thrombosis of left atrium without antecedent myocardial infarction (5) Coronary artery disease Comment: Underwent cardiac cath with stenting on 12/29/16 at [facility]. . (6) Pleural effusion Comment: s/P thoracentesis . (7) Acute renal failure (8) Obstructive sleep apnea of adult Comment: Has classic symptoms of sleep apnea but has never undergone formal sleep testing and never on CPAP. . (9) Hard of hearing Symptom Scale: (1) Pain 0-10 Scale: Unable to quantify Comment: No pre-hospital pain syndromes. Mostly now appears to be uncomfortable from ET tube. Other sources of discomfort probably include: Prolonged bedbound status; Alanis catheter; vascular access lines; SCDs; and restraints were needed. . (2) Dyspnea 0-10 Scale: Unable to quantify Comment: Dyspnea probably from a combination of factors including underlying cardiomyopathy; pleural effusion; bibasilar infiltrates. Dyspnea currently managed by mechanical ventilation. . Pertinent Non-Medical Issues Psychosocial: Patient's primary home is in [place]. He and his also own a home locally in [place]. 2 of their 5 children live in [place]. One is visiting currently. Spiritual: Patient comes from a [employer] background. Not a regular churchgoer. believes he would appreciate occasional inspector mechanical visits. Legal: No completed advance directives. Ethical issues impacting care: Patient is awake and alert but having difficulty and frustrations communicating on basic issues. Reluctant to engage him in a goals of care conversation at this point because I am not sure I can trust the results. . Important Contacts Olena Palmer (spouse) [phone] . Prognosis In spite of history of congestive heart failure, the patient's functional status prior to this recent hospitalization was quite good. He remained active and able to do chores around the house. On the other hand, the patient is currently critically ill. His ejection fraction alone of 10-15% comes with a poor prognosis. He now has worsening renal function. He requires anticoagulation to help prevent propagation of his left atrial appendage clot. However, he has already had bleeding complications as a result of anticoagulation. He currently has high O2 requirements. . Code Status: Full Code Plan == Code Status: FULL CODE == Decision Making: The patient was awake and alert. However, he has a very difficult time communicating very basic issues such as location, quantity, of pain. He is also easily frustrated with the communication issues. Therefore, I would not recommend that the patient be his sole decision-maker for critical decisions. At the very least, I would recommend shared decision making. As there is no written designation of a health care surrogate, the patient's spouse would be the appropriate proxy decision-maker under the [place] statutes. Pt follow some commands but remains too confused to have capacity. == Goals of medical treatment: The patient's reports there are no written advance directives and the patient has never had any conversations about treatments he would or would not want to have. She has reaffirm that with me this visit. Goals are aggressive. She did no wanted to talk with me about goals of care. She is agreeable to speak with me tomorrow as patient will undergo bronchoscopy. == Pain: Currently sedated == Dyspnea: Dyspnea is currently managed by mechanical ventilation. . == Bowel activity: An excellent bowel regimen is currently in place. No further recommendations at this time == Palliative care we'll continue to follow to assist with symptom management and to further clarify goals of medical treatment as the clinical case evolves. . Time Spent Total Floor Time (mins): 25 Attestation To help prompt me to consider important information that might be impacting today's encounter and assessment, information from prior notes written by myself or my colleagues may have been "brought forward" into today's note. My signature on this note, however, is an attestation that I personally performed the exam, history, and/or decision-making noted today, and, unless otherwise indicated, the interactions with patient, family, and staff as well as the review of records all occurred today. I also attest that the listed assessment and stated plan reflect my best clinical judgment today based on the combination of historical information, prior notes, and today's exam/ interactions. When time spent is documented, it refers only to time spent today by the signer, or if indicated, combined time spent today by collaborating physician/nurse practitioner. Wilbert Shultz MD January 17, 2017 10:21
--- NOTE | 2017-01-17 11:16 | HHI.NPPN ---
Subjective General Problems: Anemia, Edema, Heart Disease Renal Failure: Acute History of Present Illness 71-year-old the white male the who is transferred from [facility] to [facility] due to atrial fibrillation with fast ventricular response, he was in the heart catheterization lab and became unstable has to intubated the patient has chronic kidney disease, Cardiomyopathy ejection fraction of only 15% and has severe dilated cardiomyopathy with the clot in left atrium he is on heparin drip and currently on ventilator. Additional Remarks Patient remain on the vent. and sedated, clinically same, intubated Objective Data Data 01/16/17 01/17/17 19:00 07:00 Intake Total 1498 ml 1619 ml Output Total 260 ml 200 ml Balance 1238 ml 1419 ml IV Total 866 ml 1037 ml Tube Feeding 402 ml 582 ml Other 230 ml Output Urine Total 260 ml 200 ml # Bowel Movements 0 Vital Signs Date Time Temp Pulse Resp B/P Pulse Ox O2 Delivery O2 Flow Rate FiO2 01/17/17 10:36 96 65 01/17/17 08:04 94 65 01/17/17 07:23 95 Mechanical Ventilator 65 01/17/17 07:23 97 01/17/17 07:23 99.1 97 16 112/73 95 119/56 01/17/17 07:23 65 01/17/17 05:08 90 70 01/17/17 04:22 98 65 01/17/17 03:47 65 01/17/17 03:47 98.1 111 16 102/68 95 98/55 01/17/17 03:47 105 01/17/17 03:47 95 Mechanical Ventilator 65 01/17/17 01:19 97 70 01/16/17 23:17 99.2 108 16 112/66 95 129/64 01/16/17 23:17 95 Mechanical Ventilator 75 01/16/17 23:17 111 01/16/17 23:17 75 01/16/17 22:50 92 70 01/16/17 20:35 97 60 01/16/17 19:39 92 60 01/16/17 19:21 99.0 122 17 119/58 92 01/16/17 19:21 92 Mechanical Ventilator 60 01/16/17 19:21 55 01/16/17 19:00 122 01/16/17 16:30 94 50 01/16/17 15:00 55 01/16/17 15:00 96 Mechanical Ventilator 55 01/16/17 15:00 113 01/16/17 15:00 99.6 113 16 133/53 97 01/16/17 14:00 96 60 -: 01/17/17 0505 01/17/17 0505 Physical Exam Eyes Eye Exam: Pupils Equal Throat Throat Exam: Oral Mucosa [place] & Moist Pulmonary Resp Exam: Crackles, Rhonchi, Decreased Bases, Diminished Breath Sounds Cardiology CV Exam: Arrhythmia Gastrointestinal/Abdomen GI Exam: Soft, Non-Tender, Distended Extremeties Extremities Exam: Moderate Edema, Pitting Edema, Dependent Edema Neurologic Neuro Exam: Sedated Assessment/Plan Problem List: (1) Acute renal failure Plan: Patient urine out put is lower as started on hemodialysis He has poor ejection fraction and is intubated Severe cardiomyopathy prognosis is guarded. hemodialysis proceedings noted 2 L off QB 260 d/w Rafy CXR Rt pleural effusion FiO2 65% Platelet low HIT Weak pos serotonin release assay pending on Flolan (2) CKD (chronic kidney disease) stage 4, GFR 15-29 ml/min Plan: Has high creatinine kidney ultrasound reviewed (3) CHF (congestive heart failure) Plan: Severe cardiomyopathy EF 15% (4) Atrial fibrillation with rapid ventricular response Plan: Has a blood clot in LA appendage Problem Qualifiers (1) CHF (congestive heart failure): Christa Hahn MD January 17, 2017 11:16
[2017-01-17] MEDS: CEFEPIME INJ 2,000 MG in SODIUM CHLORIDE 0.9% INJ 100 ML IV SCH ×2 (12:00→17:03)
--- NOTE | 2017-01-17 12:24 | HHI.PR ---
Subjective Remarks Sedated on Vent support , FIO2 at 65%. was dialyzed. Has some bloody nasal secretions. On Flolan now. Objective Vital Signs Date Time Temp Pulse Resp B/P Pulse Ox O2 Delivery O2 Flow Rate FiO2 01/17/17 10:36 96 65 01/17/17 08:04 94 65 01/17/17 07:23 95 Mechanical Ventilator 65 01/17/17 07:23 97 01/17/17 07:23 99.1 97 16 112/73 95 119/56 01/17/17 07:23 65 01/17/17 05:08 90 70 01/17/17 04:22 98 65 01/17/17 03:47 65 01/17/17 03:47 98.1 111 16 102/68 95 98/55 01/17/17 03:47 105 01/17/17 03:47 95 Mechanical Ventilator 65 01/17/17 01:19 97 70 01/16/17 23:17 99.2 108 16 112/66 95 129/64 01/16/17 23:17 95 Mechanical Ventilator 75 01/16/17 23:17 111 01/16/17 23:17 75 01/16/17 22:50 92 70 01/16/17 20:35 97 60 01/16/17 19:39 92 60 01/16/17 19:21 99.0 122 17 119/58 92 01/16/17 19:21 92 Mechanical Ventilator 60 01/16/17 19:21 55 01/16/17 19:00 122 01/16/17 16:30 94 50 01/16/17 15:00 55 01/16/17 15:00 96 Mechanical Ventilator 55 01/16/17 15:00 113 01/16/17 15:00 99.6 113 16 133/53 97 01/16/17 14:00 96 60 I/O 01/16/17 01/16/17 01/16/17 01/17/17 01/17/17 01/17/17 07:00 15:00 23:00 07:00 15:00 23:00 Intake Total 1239 ml 1498 ml 1619 ml Output Total 325 ml 260 ml 200 ml 2000 ml Balance 914 ml 1238 ml 1419 ml -2000 ml IV Total 835 ml 866 ml 1037 ml Tube Feeding 404 ml 402 ml 582 ml Other 230 ml Output Urine Total 325 ml 260 ml 200 ml Hemodialysis 2000 ml # Bowel Movements 0 0 Result Diagram: 01/17/17 0505 01/17/17 0505 Objective Remarks GENERAL: This is an obese, elderly man who is intubated, sedated, assisting the ventilator. HEENT: Head is normocephalic. Pupils are reactive. Throat has secretions NECK: Supple with no venous distention. Trachea is midline. CHEST: Decreased breath sounds with occasional crackles at both lung bases. HEART: The heart sounds are irregular S1-S2. No murmur. ABDOMEN: Soft. Obese without masses. No organomegaly. EXTREMITIES: 1 + edema. Decreased peripheral pulses. Reflexes are not elicited. The patient is sedated. SKIN: Dry and cool. Assessment and Plan Assessment and Plan IMPRESSION 1. Hypoxic respiratory failure. 2. Left lower lobe atelectasis and possible pneumonia with aspiration. 3. Left pleural effusion resolved. 4. Cardiomyopathy and congestive heart failure. 5. Obstructive sleep apnea. 6. Diabetes mellitus. 7. Atrial fibrillation. 8. Nasopharyngeal bleed Plan : 1. Wean FIO2 to keep sat >90. 2. Cont Flolan. 3. Antibiotics per ID. 4. CBC BMP in am. 5. Nebs qid , duoneb. 6. Will need trach soon. 7. Tube feeds at 50 CC 8. Solumedrol 40 mg IV q8h Julius Burch MD January 17, 2017 12:21
[2017-01-17] MEDS: SODIUM CHLORIDE 0.9% FLUSH 10 ML FLUSH IVF SCH (12:30)
[2017-01-17] MEDS ORDERED: SODIUM CHLORIDE 0.9% FLUSH 10 ML FLUSH IVF PRN (12:30)
--- NOTE | 2017-01-17 12:30 | PD.PROCEDR ---
Central Line Procedure REASON FOR PROCEDURE Central venous access PROCEDURE PERFORMED Central line placement: Left subclavian CVL CONSENT Informed consent for procedure was obtained. The risks and benefits of the procedure were discussed to include but limited to bleeding, clot formation, infection, and even . ANESTHESIA Local injection of 1% Lidocaine DESCRIPTION OF THE PROCEDURE The patient was placed in supine, mild Trendelenburg position. The area was exposed and cleansed with ChloraPrep, times two. Large sterile drape was used to cover the patient, with the site exposed, under sterile conditions including cap, face mask, sterile gown, and sterile gloves. On single attempt, the introducer needle was inserted with negative pressure in syringe and venous flash was obtained. The guide wire was then advanced without any restriction and the needle was removed. The dilator was used without any complications. Using Seldinger technique the triple-lumen catheter was advanced over the guide wire to a depth of 20 centimeters. The guide wire was removed. All ports were aspirated with dark venous blood return and flushed easily with sterile saline. All ports were capped. Antibiotic disc was placed around central line at puncture site. The central line was secured to the skin with two interrupted 2.0 silk sutures. The area was bandaged with sterile see-through central line bandage. RADIOLOGICAL DATA Ultrasound guidance was used to locate left subclavian vein. Doppler/color flow was used to confirm venous flow. COMPLICATIONS: No apparent complications ESTIMATED BLOOD LOSS: Less than 1 cc. Koby Cagle MD January 17, 2017 12:30
--- NOTE | 2017-01-17 13:17 | HHI.IDPN ---
Subjective Subjective Remarks is a 71 y/o CM with PMHx of Morbid Obesity, HTN, SONU not on BiPAP, Afib with RVR. Patients reports they both had a cold recently and his was slightly worse and associated with significant cough and some low grade fever. He was driving from [place] to his 2nd home in [place] when he had worsening dyspnea and so presented to the [facility]. While at that hospital patient was noted to be in Afib with RVR. He underwent an ECHO which showed severe systolic dysfunction with EF 10-15%. He then underwent a cardiac cath at [facility] with left circumflex 90% blockage. The patient underwent multiple attempts of unsuccessful synchronized cardioversion. The patient also underwent medical management with beta blockers, and calcium channel blockers that were also unsuccessful. The patients reports he was treated with IV antibiotics and blood cultures were negative. The patient was transferred to [facility] for cardiac ablation with Dr. Jimenez. The patient was scheduled for cardiac ablation, the procedure was canceled as the patient required emergent intubation and required ventilator management. A VLADIMIR was performed showing a clot in the left atrial appendage. The patient was placed on IV Cardizem, and an amiodarone infusion. Critical Care medicine was consulted for management. ID was consulted for evaluation and Mment of leucocytosis, Pneumonia, possible empyema. Overnight events reviewed. No fevers No rash No diarrhea remains on vent, high FIO2 and PEEP. Sedation vacation not attempted due to high PEEP. UO ok. Antibiotics Cefepime IV Azithro IV Lines Line sites with no e/o infection. Past Medical History reviewed Allergies: Coded Allergies: No Known Allergies (Unverified , 01/05/17) Pt stated he had No Known Allergies Objective . Vital Signs Date Time Temp Pulse Resp B/P Pulse Ox O2 Delivery O2 Flow Rate FiO2 01/17/17 10:36 96 65 01/17/17 08:04 94 65 01/17/17 07:23 95 Mechanical Ventilator 65 01/17/17 07:23 97 01/17/17 07:23 99.1 97 16 112/73 95 119/56 01/17/17 07:23 65 01/17/17 05:08 90 70 01/17/17 04:22 98 65 01/17/17 03:47 65 01/17/17 03:47 98.1 111 16 102/68 95 98/55 01/17/17 03:47 105 01/17/17 03:47 95 Mechanical Ventilator 65 01/17/17 01:19 97 70 01/16/17 23:17 99.2 108 16 112/66 95 129/64 01/16/17 23:17 95 Mechanical Ventilator 75 01/16/17 23:17 111 01/16/17 23:17 75 01/16/17 22:50 92 70 01/16/17 20:35 97 60 01/16/17 19:39 92 60 01/16/17 19:21 99.0 122 17 119/58 92 01/16/17 19:21 92 Mechanical Ventilator 60 01/16/17 19:21 55 01/16/17 19:00 122 01/16/17 16:30 94 50 01/16/17 15:00 55 01/16/17 15:00 96 Mechanical Ventilator 55 01/16/17 15:00 113 01/16/17 15:00 99.6 113 16 133/53 97 01/16/17 14:00 96 60 01/16/17 01/16/17 01/17/17 15:00 23:00 07:00 Intake Total 1498 ml 1619 ml Output Total 260 ml 200 ml Balance 1238 ml 1419 ml IV Total 866 ml 1037 ml Tube Feeding 402 ml 582 ml Other 230 ml Output Urine Total 260 ml 200 ml # Bowel Movements 0 . Laboratory Tests Test 01/16/17 01/17/17 05:05 05:05 White Blood Count 20.1 TH/MM3 21.0 TH/MM3 Red Blood Count 3.70 MIL/MM3 3.77 MIL/MM3 Hemoglobin 10.6 GM/DL 10.8 GM/DL Hematocrit 32.5 % 33.1 % Mean Corpuscular Volume 87.7 FL 87.7 FL Mean Corpuscular Hemoglobin 28.5 PG 28.5 PG Mean Corpuscular Hemoglobin 32.5 % 32.5 % Concent Red Cell Distribution Width 16.5 % 16.3 % Platelet Count 86 TH/MM3 86 TH/MM3 Mean Platelet Volume 10.9 FL 12.1 FL Neutrophils (%) (Auto) 92.7 % Lymphocytes (%) (Auto) 1.2 % Monocytes (%) (Auto) 5.9 % Eosinophils (%) (Auto) 0.0 % Basophils (%) (Auto) 0.2 % Neutrophils # (Auto) 19.5 TH/MM3 Lymphocytes # (Auto) 0.3 TH/MM3 Monocytes # (Auto) 1.2 TH/MM3 Eosinophils # (Auto) 0.0 TH/MM3 Basophils # (Auto) 0.0 TH/MM3 CBC Comment AUTO DIFF Differential Comment AUTO DIFF CONFIRMED Platelet Estimate LOW Platelet Morphology Comment NORMAL Laboratory Tests Test 01/16/17 01/17/17 05:05 05:05 Sodium Level 139 MEQ/L 138 MEQ/L Potassium Level 4.5 MEQ/L 4.7 MEQ/L Chloride Level 99 MEQ/L 96 MEQ/L Carbon Dioxide Level 25.7 MEQ/L 21.9 MEQ/L Anion Gap 14 MEQ/L 20 MEQ/L Blood Urea Nitrogen 152 MG/DL 176 MG/DL Creatinine 4.50 MG/DL 5.70 MG/DL Estimat Glomerular Filtration 13 ML/MIN 10 ML/MIN Rate Random Glucose 155 MG/DL 128 MG/DL Calcium Level 8.3 MG/DL 7.9 MG/DL Phosphorus Level 8.5 MG/DL 8.6 MG/DL Magnesium Level 2.7 MG/DL 2.8 MG/DL Total Bilirubin 0.5 MG/DL Aspartate Amino Transf 12 U/L (AST/SGOT) Alanine Aminotransferase 19 U/L (ALT/SGPT) Alkaline Phosphatase 43 U/L Total Protein 5.4 GM/DL Albumin 2.1 GM/DL Imaging Last Impressions Chest CT 01/08/17 0600 Signed Impressions: Service Date/Time: Sunday, January 08, 2017 08:46 - CONCLUSION: Massive cardiomegaly with panchamber enlargement extensive coronary calcifications. Stable trace pericardial effusion. Increasing bibasilar consolidative changes with minimal bilateral pleural effusions.. Rhys Fritz MD FACR Chest X-Ray 01/08/17 0000 Signed Impressions: Service Date/Time: Sunday, January 08, 2017 10:26 - CONCLUSION: Increasing left pleural effusion when compared to study earlier the same day. Rhys Fritz MD FACR Chest Ultrasound 01/07/17 0000 Signed Impressions: Service Date/Time: Saturday, January 07, 2017 16:04 - CONCLUSION: 1. Small right pleural effusion noted with estimated volume of 78 cc. Amount insufficient for safe thoracentesis with patient in lateral decubitus position. Osmany Javed MD Physical Exam GENERAL: Obese, well-developed patient, in no apparent distress. SKIN: No rashes, ecchymoses or lesions. Cool and dry. HEAD: Atraumatic. Normocephalic. No temporal or scalp tenderness. EYES: Pupils equal round and reactive. Extraocular motions intact. No scleral icterus. No injection or drainage. ENT: Intubated. NECK: Trachea midline. Supple, nontender, no meningeal signs. Large neck. CARDIOVASCULAR: HS audible. Irregular HR. RESPIRATORY: Breath sounds equal bilaterally decreased in the bases. Left side remarkable decrease in breath sounds. GASTROINTESTINAL: Abdomen soft, non-tender, nondistended. MUSCULOSKELETAL: Extremities without clubbing, cyanosis, or edema. NEUROLOGICAL: Awake and alert. Grossly non focal Psych: cooperative IV line sites with no e.o infection. Assessment & Plan Remarks Pneumonia: ? Viral followed by Secondary bacterial pneumonia, Atypical pneumonia. Possible Empyema. Afib with RVR: infection as precipitant. Ischemic Cardiomyopathy EF 10-15% SONU not on BiPAP. Acute renal failure: sepsis, contrast, meds. Hyperglycemia ? DM, ? stress Acute resp failure on vent. Acute renal failure. Recs: continue Cefepime IV Continue oral flagyl. DC Azithro IV Will follow clinically Will follow cultures. Sputum cultures normal resp sandee. continues to have nasal bleeding as risk factor for aspiration. Gema Gage MD January 17, 2017 13:17
[2017-01-17] MEDS ORDERED: SODIUM BICARBONATE 8.4% INJ 50 ML ONE (13:29)
[2017-01-17] MEDS ORDERED: SODIUM BICARBONATE 8.4% INJ 50 MEQ/50 ML SYR IV PUSH ONE (13:30)
[2017-01-17] MEDS ORDERED: ROCURONIUM INJ 100 MG/10 ML VIAL IV ONE (13:30)
[2017-01-17] MEDS ORDERED: EPINEPHrine HCL (1:10,000) 1 MG/10 ML SYRINGE IV ONE (13:30)
[2017-01-17] MEDS ORDERED: ROCURONIUM INJ 50 MG/5 ML VIAL ONE (13:42)
[2017-01-17] MEDS ORDERED: KETAMINE HCL 500 MG/5 ML VIAL IV PUSH ONE (13:45)
--- NOTE | 2017-01-17 13:45 | RADRPT ---
EXAM DATE/TIME: 01/17/2017 12:39 [facility] COMPARISON: CHEST SINGLE AP, January 17, 2017, 4:32. INDICATIONS : Central line placement. MEDICAL HISTORY : Hypertension. Hydronephrosis, AFIB, Thyroid disease SURGICAL HISTORY : Coronary artery stent. Right thoracentesis, Parathyroid removal ENCOUNTER: Subsequent ACUITY: 1 day PAIN SCORE: Non-responsive. LOCATION: Bilateral chest FINDINGS: ET tube, nasogastric tube and central venous catheter are in good position. The heart is enlarged. There is mild interstitial edema present. Small bilateral pleural effusions are noted. CONCLUSION: 1. Support apparatus in good position. 2. Continued cardiomegaly with bilateral pleural effusions. 3. Central line is in good position without pneumothorax. Rhys Fritz MD FACR on January 17, 2017 at 13:38 Board Certified Radiologist. This report was verified electronically.
--- NOTE | 2017-01-17 14:27 | PD.PROCEDR ---
Procedure Note Procedure Procedure: Fiberoptic Bronchoscopy secondary to hematemesis Diagnosis/Indication: Respiratory failure, hematemesis with decreasing oxygen agitation's Consent: Informed consent obtained and a time out performed Anesthesia: Continue sedation with propofol at 50 mcg/kg/m. Total of 50 mg ketamine for additional sedation.. Neuromuscular paralysis with rocuronium during the procedure 50 mg Description of the Procedure: The patient was sedated and mechanically ventilated, was placed on 100% FIO2 and a volume control mode of ventilation. The fiberoptic bronchoscopy was inserted via endotracheal tube . Bloody secretions noted throughout. At the saturnino was mucoid bloody secretions which were suctioned out with copious amounts of sterile saline. No active bleeding was patient. Advanced to the lingula/left upper and lower levels. Mucosa is erythematous with active bleeding. Suction) left lower lobe 30 cc sterile saline. The scope was drawn and the right upper, middle and lower lobes were examined the mucosa was friable erythematous but not actively bleeding. No masses were appreciated. Right no lower lobe were irrigated with sterile saline lavage. The second third subcentimeter densities support examined and suctioned. Saturations remain between 80-92% all times. The bronchoscope was withdrawn A chest x-ray has been ordered. I personally performed the procedure. Koby Cagle MD January 17, 2017 14:27
--- NOTE | 2017-01-17 14:28 | PD.PROCEDR ---
Procedure Note Procedure DATE: 01/17/2017 PROCEDURE: Orotracheal intubation INDICATION: Significant cuff leak from ET tube DETAILS OF PROCEDURE The patient was placed in optimal position and preoxygenated with 100% FiO2 via bag valve mask. At the start oxygen saturation was 100%. The patient was administered previously 50 mg ketamine IV and 50 mg rocuronium IV. I entered the oropharynx with a size 4 Glidescope blade and obtained a grade 2 view of the airway. On single attempt a size 8.0 cuffed endotracheal tube was passed through the vocal cords. Correct tube location was confirmed with end tidal CO2 detector and by auscultating over bilateral lung guardado. The endotracheal tube was secured with adhesive tape at a depth of 24 cm at the lips. The patient was connected to the ventilator. The patient tolerated the procedure well without any apparent complications. Oxygen saturations were maintained greater than 85% all times. STAT chest x-ray in attempt medication. Koby Cagle MD January 17, 2017 14:28
[2017-01-17] MEDS ORDERED: RESP: ACETYLCYSTEINE 20% 30 ML NEB NEB ONE (15:00)
[2017-01-17 15:35] LABS: BLOOD GAS BASE EXCESS -1.6 mmol/L (-2-2); BLOOD GAS CARBOXYHEMOGLOBIN 1.5 % (0-4); BLOOD GAS HCO3 21 mmol/L (22-26); BLOOD GAS METHEMOGLOBIN 1.6 % (0-2); BLOOD GAS O2 HGB SATURATION 94 % (90-100); BLOOD GAS OXYGEN CONTENT 15.8 Vol % (12.0-20.0); BLOOD GAS PCO2 23 mmHg (38-42); BLOOD GAS PO2 80 mmHg (61-120); BLOOD GAS TOTAL HGB 11.9 G/DL (12.0-16.0); TEMP CORR TO 98.6
[2017-01-17 15:37] LABS: CRITICAL VALUE YES; DRAW SITE ART LINE; FIO2 100 %; OXYGEN DEVICE VENTILATOR; STAT NO; VENT SETTINGS PC/AC/16/IP 26
--- NOTE | 2017-01-17 16:23 | RADRPT ---
EXAM DATE/TIME: 01/17/2017 14:37 [facility] COMPARISON: CHEST SINGLE AP, January 17, 2017, 12:39. INDICATIONS : S/p bronchoscopy MEDICAL HISTORY : Hypertension. SURGICAL HISTORY : Coronary artery stent. ENCOUNTER: Initial ACUITY: 1 week PAIN SCORE: Non-responsive. LOCATION: Bilateral chest FINDINGS: The lungs, mediastinum, liver uptake, abdomen and pelvis appear intact. There is diffuse bilateral pu lmonary edema and probable pleural effusions slightly worse. Consolidation in the lung bases particul hilda on the left side and pneumonia is difficult to exclude. NG tube is present with tip in the stoma ch. ET tube is present with tip approximately 1 cm above the saturnino. Left subclavian line is present with tip overlapping the expected region of the SVC with separate left IJ line in place. CONCLUSION: Worsening pulmonary edema and volume overload. Kaylah Schroeder MD on January 17, 2017 at 16:18 Board Certified Radiologist. This report was verified electronically.
[2017-01-17] MEDS: RESP: SODIUM CHLORIDE 3% 4 ML NEB NEB SCH ×2 (16:25→22:20)
[2017-01-17] MEDS: fentaNYL DRIP 250 ML IV SCH (17:01)
[2017-01-17] MEDS: CISATRACURIUM INJ 100 MG in SODIUM CHLOR 0.9% 250 ML INJ 240 ML IV SCH ×2 (17:01→22:21)
[2017-01-17] MEDS: ARTIFICIAL TEARS OPTH SOLN 15 ML BTL EACH EYE SCH (21:18)
[2017-01-18] VITALS (11 sets, daily range): BP systolic 77–146; BP diastolic 26–71; PULSE 90–110; RESP 16–17; TEMP 97.6–98.6; O2SAT 93–99
[2017-01-18] MEDS: INSULIN ASPART SUPPLEMENTAL SCALE SQ SCH ×4 (00:12→19:00)
[2017-01-18] MEDS: metroNIDAZOLE 500 MG TAB PO SCH ×3 (01:00→17:22)
[2017-01-18] MEDS: EPOPROSTENOL NEB SOLUTION 50 NG/KG/MIN 100 ML NEB SCH ×6 (02:46→20:08)
[2017-01-18] MEDS: CHLORHEXIDINE GLUCONATE 2 % 1 PACK (2 CLOTHS) TOP SCH (02:47)
[2017-01-18] MEDS: RESP: IPRATROPIUM 0.5 MG/2.5 ML NEB NEB SCH ×4 (04:02→21:36)
[2017-01-18] MEDS: RESP: LEVALBUTEROL HYDROCHLORIDE 0.63 MG/3 ML NEB (SCH) NEB ×4 (04:02→21:37)
[2017-01-18] MEDS: RESP: SODIUM CHLORIDE 3% 4 ML NEB NEB SCH ×4 (04:02→21:37)
--- NOTE | 2017-01-18 05:06 | RADRPT ---
EXAM DATE/TIME: 01/18/2017 04:23 [facility] COMPARISON: CHEST SINGLE AP, January 17, 2017, 14:37. INDICATIONS : Shortness of breath, possible pulmonary disease. MEDICAL HISTORY : Hypertension. SURGICAL HISTORY : Coronary artery stent. ENCOUNTER: Subsequent ACUITY: 2 weeks PAIN SCORE: Non-responsive. LOCATION: Bilateral chest FINDINGS: 3 AP semierect views of the chest were obtained. Endotracheal tube remains in place with the tip now located approximately 4 cm above the saturnino. A nasogastric tube is seen coursing through the esophagu s to the stomach. The left internal jugular central venous line remains in place. Hazy opacity is aga in noted in both lungs greatest at the lung bases. The heart size is mildly prominent. There is obscu ration of the left hemidiaphragm and blunting of the left costophrenic angle consistent with effusion . CONCLUSION: 1. No significant change. The findings remain most characteristic of congestive heart failure. 2. The patient remains intubated. Ar Lunsford MD on January 18, 2017 at 5:03 Board Certified Radiologist. This report was verified electronically.
[2017-01-18 05:35] LABS: AUTOMATED NEUTROPHIL # 22.4 TH/MM3 (1.8-7.7); BASOPHIL # 0.1 TH/MM3 (0-0.2); BASOPHIL % 0.5 % (0.0-2.0); EOSINOPHIL % 0.1 % (0.0-4.0); HEMATOCRIT 33.2 % (39.0-51.0); LYMPHOCYTE # 0.2 TH/MM3 (1.0-4.8); MEAN CELL VOLUME 88.3 FL (80.0-100.0); MEAN CORPUSCULAR HEMOGLOBIN 29.3 PG (27.0-34.0); MEAN CORPUSCULAR HGB CONC 33.2 % (32.0-36.0); MONO % 3.5 % (0.0-8.0); NEUT % 94.9 % (16.0-70.0); PLATELET COUNT 94 TH/MM3 (150-450); RED BLOOD COUNT 3.76 MIL/MM3 (4.50-5.90); RED CELL DISTRIBUTION WIDTH 17.2 % (11.6-17.2); WHITE BLOOD COUNT 23.6 TH/MM3 (4.0-11.0)
[2017-01-18] MEDS: methylPREDNISolone SOD SUCC 40 MG/1 ML VIAL IV PUSH SCH ×3 (05:40→21:18)
[2017-01-18] MEDS: FAMOTIDINE 20 MG/2 ML VIAL IV PUSH SCH ×2 (05:40→17:22)
[2017-01-18 05:41] LABS: HEMO FLAGS AUTO DIFF
[2017-01-18] MEDS: ARTIFICIAL TEARS OPTH SOLN 15 ML BTL EACH EYE SCH ×3 (05:45→22:36)
[2017-01-18 06:12] LABS: ANION GAP 19 MEQ/L (5-15)
[2017-01-18 06:13] LABS: ALKALINE PHOSPHATASE 50 U/L (45-117); ALT (GPT) 19 U/L (12-78); AST (GOT) 13 U/L (15-37); BICARBONATE 22.2 MEQ/L (21.0-32.0); BLOOD UREA NITROGEN 140 MG/DL (7-18); CHLORIDE 98 MEQ/L (98-107); GLOMERULAR FILTRATION RATE 11 ML/MIN (>89); MAGNESIUM 2.8 MG/DL (1.5-2.5); POTASSIUM 5.1 MEQ/L (3.5-5.1); SODIUM (NA) 139 MEQ/L (136-145); TOTAL BILIRUBIN ADULT 0.5 MG/DL (0.2-1.0)
[2017-01-18] MEDS: METOCLOPRAMIDE HCL 10 MG/2 ML VIAL IV PUSH SCH ×3 (06:45→21:19)
[2017-01-18 06:54] LABS: BANDS 3 % (0-6); MYELOCYTES 2 % (0-0); NEUTROPHIL # MANUAL DIFF 23.4 TH/MM3 (1.8-7.7); PLATELET ESTIMATE SMEAR LOW (NORMAL); PLATELET MORPHOLOGY ENLARGED (NORMAL); POLYS (SEG NEUTROPHILS) 94 % (16-70); SCAN/DIFF FINAL DIFF MANUAL; WBC DIFF SAMPLE 100
[2017-01-18] MEDS ORDERED: METHYLNALTREXONE BROMIDE 12 MG/0.6 ML VIAL SQ ONE (07:00)
--- NOTE | 2017-01-18 07:16 | HHI.CCPN ---
Subjective Remarks/Hospital Course This is a 71-year-old gentleman that presented to [facility] secondary to dyspnea and atrial fibrillation with RVR. The patient has a medical history significant for obesity and hypertension. During his hospitalization at [facility], the patient underwent an echocardiogram which showed severe systolic dysfunction with an ejection fraction of 1015 % the patient then underwent a cardiac catheterization showing significance with left circumflex 90%. The patient underwent multiple attempts of unsuccessful synchronized cardioversion. The patient also underwent medical management with beta blockers, and calcium channel blockers that were also unsuccessful. The patient was transferred to [facility] for cardiac ablation with Dr. Jimenez. The patient was scheduled for cardiac ablation, the procedure was canceled. The patient required emergent intubation and required ventilator management a VLADIMIR was performed showing a clot in the left atrial appendage. The patient was placed on IV Cardizem, and an amiodarone infusion. Critical Care medicine was consulted for management. 01/06: Tmax 97.4. The patient remained on elevated vent settings with FiO2 of 1.0 overnight, PEEP requirements were increased to 8, to maintain a PaO2 of greater than [address] scan of the chest was obtained which noted bilateral effusions small, basilar consolidations right worse than the left, and a loculated area representing a possible pneumonia process, empyema, as well as aspiration or just loculated fluid as well as a small pericardial effusion. The patient continues on Cardizem and amiodarone infusions with a heart rate overnight 80s -115. The patient's vasopressor requirements of phenylephrine diminished to 20 mcgs. 01/07: Tmax 99.2. Yesterday the central line was placed for vasoactive medications and CVP monitoring, small hematoma noted near the right IJ area soft no compression of major vessels, with resolution of bleeding in that area. Phenylephrine was discontinued yesterday. The patient heart rate remains today [id number]. Cardizem infusion has been discontinued in the setting of EF of 10-15%. Esmolol infusion to be initiated this a.m.. Coumadin was initiated last night now placed on hold due to patient bleeding from nasopharynx and oropharynx. INR currently 1.2. Plan for CT thorax tomorrow, with possible IR intervention versus CVT consultation for possible empyema the patient will remain on heparin infusion, and transition onto Coumadin after any potential procedures to be initiated. Chest x-ray slightly improved FiO2 decreasing now 70%. Sedation vacation yesterday revealed GCS 11 T, patient alert responsive following commands. With initiation of antibiotics, leukocytosis resolved. ID consulted Dr. Gage. Blood cultures are pending. 01/08: Patient's heart rate 110-[address] scan of the chest imaging revealed fluid. Plan for thoracentesis and and studies of pleural fluid , this afternoon. The patient remains on amiodarone and heparin infusions, per cardiology. Heparin held, for thoracentesis this afternoon, and then will be resumed. The patient was maintained on CPAP trial for approximately one hour yesterday. During sedation vacation patient was alert following commands recognizing family. Plan to resume CPAP trials this afternoon post thoracentesis. 01/09: The patient underwent CT-guided thoracentesis yesterday , on the right side noted 400 cc of fluid was removed , with specimens ordered to be sent for evaluation .This morning chest x-ray performed showing almost complete opacification of the left lung. FiO2 requirements increase patient on FiO2 of 80%, O2 sat 94%. Left chest ultrasound obtained revealing no fluid. Consent obtained BAL performed, revealing emanating from the nearest previously ( patient was noted to have epistaxis with initiation of heparin on 01/06). Blood clots noted in left lung upon visualization with bronchoscopy, saline lavage applied, minimal blood clots removed. The patient was initiated on Mucomyst 10% , and pulmonology was consulted. Dr. Tasia Lama following. The patient shows no signs or evidence of bleeding actively, plan to consult ENT if signs of active bleeding become evident. Hemoglobin remains stable.The patient converted into sinus rhythm is today afternoon. Cardiology management of medications, IV amiodarone discontinued this afternoon. 01/10: Tmax 99.0. Chest x-ray shows slight improvement of left lung today. Plan for repeat bronchoscopy per Dr. Burch this a.m, and the patient continues on Mucomyst. The patient's cardiac rhythm reverted to A. fib last evening, amiodarone IV infusion reinstituted per Dr. Jimenez. 01/11: TMax 100.0. Much improved chest x-ray this morning. The patient continues in A. fib with a rate of 120, he continues on amiodarone, heparin infusion per cardiology. No evidence of active bleeding. 5/12 Patient Remains sedated with Diprivan, intubated. T:99.9. On Neosyn 15 mics , heparin and Amio drips. In Afib with RRV. Patient s/p repeat bronch with BAL yesterday by Dr. Burch and ETT replacement by Dr. Sanchez. On PC/AC with PEEP:14 , FIO2 100%. 01/13: TMax 100.2. Last night the nurse reported that the patient had a small amount of epistaxis, and blood in the oropharynx noted. The area continued to bleed during the night. ENT has been consulted. Heparin has been placed on hold , ASA has been discontinued in the setting of acute renal failure. The patient continues on amiodarone infusion , heart rate 120's. Neosynephrine has been discontinued, and Levophed instituted. Creatinine noted to be 4.5. As per report , states patient does not want dialysis. The patient continues on elevated PEEP of 14. 5/14: Heparin was discontinued yesterday in the setting of continued bleeding in the nasal/ oropharyngeal region. ENT was consulted and nasal packing was applied. During the night the patient still had small noted amount of bleeding from the oropharyngeal area plan today for oropharyngeal packing. Hgb 9, will transfuse .The patient was placed on norepinephrine for currently at 1-2 mcgs per minute. PEEP has been decreased to 12, with adequate oxygenation a PaO2 of 71. 5/15: Tmax 99.0. The patient continues to be anemic and thrombocytopenic, contributory factors being uremia. The patient's /family decided to pursue hemodialysis at this point. The patient received 1 unit of packed red blood cells yesterday. The patient was initiated on dialysis yesterday afternoon, with approximately 3 L removed. Nasal gauze packing removed and placement of nasal balloons by ENT yesterday. Oral gauze packing to be removed today. The patient received 2 separate doses of digoxin, A. fib heart rate ranging 80- < 120. The patient continues to have high ventilatory requirements, FiO2 was increased throughout the night to currently 80%, to maintain O2 sat greater than 92%. 01/16: FiO2 at 85%. Large clots removed from oropharynx overnight. Transfused 2 units PRBCs yesterday. No bowel movement. Tolerating tube feeds at 40 cc now with Nepro 01/17: Maximum 100.6. CURRENT TEMPERATURE 98.1. Central line pulled out yesterday. Flolan initiated yesterday and FiO2 down to 65%. Tolerating tube feeds. No bowel movement. Arousable weakly follow commands yesterday Subjective: 01/18: Tmax 99.8. Currently afebrile. Initially, hemoptysis with desaturation requiring bronchoscopy. See bronchoscopy note. Roto-Rest bed ordered. FiO2 from 100-70% currently. On Nimbex drip. No BM. Tolerating tube feeds.. Objective Vital Signs Date Time Temp Pulse Resp B/P Pulse Ox O2 Delivery O2 Flow Rate FiO2 01/18/17 05:00 101 01/18/17 05:00 97.9 16 112/69 98 127/65 01/18/17 04:00 70 01/18/17 03:00 Mechanical Ventilator Intake and Output 01/17/17 01/17/17 01/18/17 08:00 16:00 00:00 Intake Total 1619 ml 3559 ml Output Total 200 ml 2000 ml 75 ml Balance 1419 ml -2000 ml 3484 ml Result Diagram: 01/18/17 0520 01/18/17 0520 Imaging Last Impressions Chest X-Ray 01/18/17 0600 Signed Impressions: Service Date/Time: January 04:23 - CONCLUSION: 1. No significant change. The findings remain most characteristic of congestive heart failure. 2. The patient remains intubated. Ar Lunsford MD Renal Ultrasound 01/09/17 0000 Signed Impressions: Service Date/Time: Monday, January 09, 2017 13:56 - CONCLUSION: 1. Right kidney is sonographically normal. 2. Benign-appearing 2.4 x 1.5 cm cortical cyst in the midpole of the left kidney. 3. Subcentimeter echogenic, non-shadowing foci in the midpole of the left kidney would be unusual for stones and may represent ectopic hilar fat. No hydronephrosis. 4. Urinary bladder is decompressed with a Alanis catheter. Douglas Ward MD Chest Ultrasound 01/09/17 0000 Signed Impressions: Service Date/Time: Monday, January 09, 2017 08:18 - CONCLUSION: No left-sided pleural effusion. The abnormality in the left chest on chest radiograph is likely related to mucous plugging. When patient had a CT scan yesterday the left lung was well aerated. Edgardo Mayorga MD Chest CT 01/08/17 0600 Signed Impressions: Service Date/Time: Sunday, January 08, 2017 08:46 - CONCLUSION: Massive cardiomegaly with panchamber enlargement extensive coronary calcifications. Stable trace pericardial effusion. Increasing bibasilar consolidative changes with minimal bilateral pleural effusions.. Rhys Fritz MD FACR Thoracentesis 01/08/17 0000 Signed Impressions: Service Date/Time: Sunday, January 08, 2017 16:08 - CONCLUSION: Uncomplicated CT-guided thoracentesis on the right. The left sided thoracentesis was not performed as there was no significant left pleural fluid. The abnormality on most recent chest x-ray was secondary to mucous plugging and left sided atelectasis. Edgardo Mayorga MD Objective Remarks GENERAL: 71-year-old male, critically ill-appearing appropriately stated age, obese male resting in rotarest bed SKIN: Warm and dry. No rash HEAD: Atraumatic. Normocephalic. EYES: Pupils equal and round, 3mm and reactive. No scleral icterus. No injection or drainage. ENT: Bilateral Rhino Rocket . Old clots and or NECK: Trachea midline. Unable to assess JVD secondary to body habitus. Left neck was Vas-Cath is clean dry and intact CARDIOVASCULAR: Irregular rate and rhythm, Tachycardic. S1, S2 no S4 without murmur RESPIRATORY: Diminished breath sounds throughout. Few crackles in bases bilaterally. Breath sounds equal bilaterally. High vent requirements GASTROINTESTINAL: Abdomen soft, obese non-tender, nondistended. I Magana bowel sounds MUSCULOSKELETAL: Extremities with 1+ peripheral edema. No obvious deformities. Posterior tibialis bilaterally. NEUROLOGICAL: Intubated and sedated. Follows commands moving extremities 4, when off sedation documented last Sunday. Urinary Catheter: Yes Assessment to: Continue Alanis insert reason: Pelvic Fractures Date of Insertion: January 05, 2017 Vascular Central Line Catheter: Yes Assessment to: Continue Date of Insertion: January 17, 2017 Line: Central Venous Catheter Side: Left Location: Subclavian, Jugular A/P Assessment and Plan Neuro/Psych: Epistaxis Propofol at 25 mcg/kg/m and fentanyl drip at 100 an hour for sedation to maintain ventilator synchrony/paralysis Nimbex drip at 0.5 Maintain [id number]-fo-rvak 2 out of 4/BIS 40-60 Goal of RASS -5 01/07 No active signs of bleeding. Epistaxis resolved 01/12 New onset epistaxis, heparin discontinued Epistaxis-ENT consulted-nasal balloons in situ maintain balloons until 01/19 per ENT recommendation, oropharyngeal packing to be removed by ENT 01/15 ENT following - Dr. Byrd Respiratory: Acute hypoxic respiratory failure Left lung consolidation 2/2 previous event of epistaxis, clotted blood left lung -resolved SONU Probable aspiration Possible multilobar [id number] Bilateral pleural effusions Continue with vent support keep sat >92% On PC/AC RR 16, IP:12, IT:1.65, PEEP;12, FIO2 70, decrease FIO2 as tolerated, Flolan currently 50 ng/kg per minute. Wean when FiO2 reaches 50% CXR 01/17-no change in bibasilar infiltrates Currently on Xopenex and Atrovent aerosols every 6 hours ICU vent bundle. Pulmonology following- Dr. Burch 01/05 CT chest-pericardial effusion small, bilateral effusions, basilar consolidation and right greater than left Solu-Medrol 40 mg IV Q8hr 01/08-right CT-guided thoracentesis-400 cc removed, sent for cytology and cultures s/p bronch . by- Dr. Burch for blood clots left lung Status post bronch 01/17 by chief drafter - bloody mucous plug at saturnino/mainstem section cleared. No obvious source of bleeding. CV: A. fib with RVR Left atrial appendage thrombus Cardiomyopathy Acute Systolic CHF Hypertension Dyslipidemia Currently on norepinephrine at 3 mcg/kg/m Currently on Amiodarone 200 mg twice a day 01/13- Heparin, ASA discontinued due to epistaxis 01/05 VLADIMIR( Abstract Clerk)-left atrial thrombus EF 15-20%. Systolic function reduced. Diffuse hyperkinesis. 12/26 [facility] severe systolic dysfunction EF 1015%, mitral valve mild to moderate regurg, LAE, tricuspid Valve-mild to moderate regurg, small pericardial effusion, 12/19 cardiac cath left circumflex 90% occlusion Management per Cardiology -Dr. Jimenez 01/15/started on Coreg 6.25 mill grams by mouth twice a day will be placed on hold secondary norepinephrine requirements At home on Coreg 25 mg twice a day, aspirin 81 mg daily, hydralazine 25 mg twice a day and HCTZ25 mg by mouth daily Renal: Acute on chronic kidney disease stage IV Nephrology following-Dr. Hahn Monitor renal function, I/O's, avoid nephrotoxins. Will need hemodialysis today Patient and family declined dialysis 01/12 Vascath placement Hemodialysis initiated 01/14. -2 L yesterday FEN/GI: Morbid obesity Tube feeds Nepro @50 cc, no residuals noted Pepcid for GI prophylaxis Bowel Colace/Senokot/MiraLAX twice a day. Lactulose 4 times a day initiated 1 dose of mineral oil today. 1 dose of Relistor today. Check KUB. Soapsuds enema if indicated Zofran for nausea Heme: Leukocytosis Normocytic anemia Thrombocytopenia Monitor CBC.Hgb currently stable around 10 Transfuse 3 units PRBCs and submission Will transfuse for platelet count less than 50,000 Weakly positive HIT panel-CLIFFORD ordered. Not a candidate for DTI with epistaxis ID: Likely aspiration pneumonia 01/06 urine, sputum, blood cultures-NGTD 01/06-Legionella urine antigen negative 01/09 - bronchoscopy - yeast/ID to follow 01/12 - blood cultures 2 - no growth Antibiotics per ID ( Cefepime,Azithromycin/Flagyl) -Dr. Gage following, will continue with nasal packing -Monitor for signs of infections ( Fever, WBC) Endocrine: Close monitoring per ICU protocol-medium dose regimen -- SSI Accu-Cheks every 6 hours for glycemic control Prophylaxis: GI Prophylaxis Pepcid 10 mg IV twice a day DVT Prophylaxis -- SCDs, no pharmacological DVT prophylaxis in the setting of bleeding Heparin discontinued 01/13 Lines: Peripheral IV's. 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 Time to perform other separately billable procedures was not included in the critical care time. Koby Cagle MD January 18, 2017 07:16
[2017-01-18] MEDS: CISATRACURIUM INJ 100 MG in SODIUM CHLOR 0.9% 250 ML INJ 240 ML IV SCH ×3 (07:30→19:42)
[2017-01-18] MEDS: PROPOFOL 1000 MG/100 ML IV SCH ×2 (07:33→19:24)
[2017-01-18] MEDS: CHLORHEXIDINE 0.12% (ORAL KIT) 15 ML CUP MT SCH ×3 (07:33→20:08)
[2017-01-18] MEDS ORDERED: MINERAL OIL LIQUID 30 ML CUP PO ONE (08:00)
[2017-01-18] MEDS: AMIODARONE 200 MG TAB PO SCH ×2 (09:00→21:19)
[2017-01-18] MEDS: LACTULOSE SYRUP 20 GM/30 ML CUP PO SCH ×2 (09:00→12:33)
[2017-01-18] MEDS: SENNOSIDES SYRUP 8.8 MG/5 ML CUP PO SCH (09:00)
[2017-01-18] MEDS: SODIUM CHLORIDE 0.9% FLUSH 10 ML FLUSH IVF SCH (09:00)
[2017-01-18] MEDS: DOCUSATE SODIUM 100 MG/10 ML UDC PO SCH (09:00)
[2017-01-18] MEDS: SODIUM CHLORIDE 0.9% FLUSH 10 ML FLUSH IV FLUSH SCH ×2 (09:00→21:21)
[2017-01-18] MEDS: CARVEDILOL 6.25 MG TAB PO SCH (09:00)
[2017-01-18] MEDS: POLYETHYLENE GLYCOL 17 GM PKG PO SCH (09:00)
--- NOTE | 2017-01-18 09:06 | RADRPT ---
EXAM DATE/TIME: 01/18/2017 07:52 [place] COMPARISON: No previous studies available for comparison. INDICATIONS : Abdominal pain, evaluate ileus MEDICAL HISTORY : Hypertension. SURGICAL HISTORY : Coronary artery stent. ENCOUNTER: Subsequent ACUITY: 2 weeks PAIN SCORE: Non-responsive. LOCATION: Bilateral abdomen FINDINGS: The bowel gas pattern appears normal. No free air is identified. No organomegaly is evident. A nasoga stric tube is in place with its tip in the stomach. There is left lower lobe atelectasis versus pneum onia. CONCLUSION: 1. No evidence of obstruction. Manuel Petersen MD on January 18, 2017 at 9:04 Board Certified Radiologist. This report was verified electronically.
--- NOTE | 2017-01-18 10:00 | HHI.HCPN ---
Reason for visit a. To assist with evaluation and management of symptoms including: pain; dyspnea b. To assist medical decision maker(s) with: better understanding of current medical conditions; weighing benefits/burdens of medical treatment options; making medical treatment decisions. Subjective/Interval History Pt is a 71 year old with CHF admitted to [facility] 12/25/2016 with dyspnea, afib with rvr. could not convert. EF is 15%. Cath/stent and sent to [facility] for ablation, but found to have left atrial clot. Course of hospitalization complicated by anemia, thrombocytopenia, renal failure ( opted to pursue hemodialysis) over the weekend. Pt yesterday had worsening respiratory failure with decreasing oxygen saturation. Pt underwent bronchoscopy and bloody secretions noted. At saturnino was mucoid bloody secretions/plug which were suctioned out at saturnino and mainstem. Chest X ray ordered and remains unchange with CHF. Abdominal Xray did not show any evidence of obstruction. Roto rest bed ordered, pt on nimbex drip. Pt had dialysis yesterday. 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 Family/friend interactions not at bedside Advance Directives Living Will: Never completed Health Care Surrogate: Never completed Durable Power of Gear Hobber Set Up Operator: Never completed Advance Directive Specifics Date completed: Per , has never completed an advanced directive. . Health Care Surrogate(s): No written designation of health care surrogate. . Documented care wishes: No written documentation of health care goals/preferences . Objective Vital Signs Date Time Temp Pulse Resp B/P Pulse Ox O2 Delivery O2 Flow Rate FiO2 01/18/17 07:30 70 01/18/17 07:30 97 Mechanical Ventilator 70 01/18/17 07:30 97.9 90 16 110/50 97 142/68 01/18/17 07:30 90 01/18/17 05:00 101 01/18/17 05:00 97.9 101 16 112/69 98 127/65 01/18/17 04:00 98 70 01/18/17 03:00 80 01/18/17 03:00 98 Mechanical Ventilator 70 01/18/17 01:23 99 75 01/18/17 00:00 99 Mechanical Ventilator 80 01/18/17 00:00 98.6 110 16 77/26 99 109/61 01/17/17 23:00 80 01/17/17 23:00 117 01/17/17 22:20 99 80 01/17/17 20:10 100 90 01/17/17 20:00 99 Mechanical Ventilator 100 01/17/17 19:54 100 01/17/17 19:00 127 01/17/17 19:00 98.7 127 16 120/68 98 96/52 01/17/17 16:50 94 100 01/17/17 16:00 95 100 01/17/17 15:00 95 Mechanical Ventilator 65 01/17/17 15:00 65 01/17/17 15:00 132 01/17/17 15:00 99.8 131 16 144/65 95 122/73 01/17/17 14:30 93 100 01/17/17 13:50 95 100 01/17/17 13:50 95 100 01/17/17 10:36 96 65 Intake & Output 01/18/17 01/18/17 07:00 19:00 Intake Total 2340 ml Output Total 75 ml Balance 2265 ml IV Total 1369 ml Tube Feeding 971 ml Output Urine Total 75 ml Physical Exam CONSTITUTIONAL/GENERAL: This is an obese male, intubated, mechanically ventilated, awake and alert, in a coronary intensive care unit bed. Now sedated TUBES/LINES/DRAINS: Right internal jugular central line; arterial line; Alanis catheter; peripheral IV; orotracheal tube; orogastric tube; SCDs SKIN: No jaundice, rashes, or lesions. No wounds seen anteriorly. Skin temperature appropriate. Not diaphoretic. HEAD: Atraumatic. Normocephalic. EYES: Pupils equal and round and reactive. Extraocular motions intact. No scleral icterus. No injection or drainage. Fundi not examined. ENT: Hearing grossly normal. Some dried blood around nose and mouth. Throat without visible erythema, exudates, masses, or lesions though difficult to visualize due to intubations. NECK: Obese neck is difficult to examine. Trachea appears midline. Supple, nontender. No palpable thyroid enlargement or nodularity. CARDIOVASCULAR: Irregular, rapid rhythm without murmurs, gallops, or rubs. No JVD. Peripheral pulses symmetric. RESPIRATORY/CHEST: Symmetric, unlabored respirations. Clear to auscultation. Breath sounds equal bilaterally. No wheezes, rales, or rhonchi. GASTROINTESTINAL: Abdomen obese, soft, non-tender, nondistended. No hepato- splenomegaly, or palpable masses. No guarding. Bowel sounds present. GENITOURINARY: Without palpable bladder distension. Alanis catheter in place. MUSCULOSKELETAL: Extremities without clubbing, cyanosis, or edema. No joint tenderness or effusion noted. No calf tenderness. No mottling. LYMPHATICS: No palpable cervical or supraclavicular adenopathy. NEUROLOGICAL: currently sedated Moves all extremities. PSYCHIATRIC: No obvious anxiety/depression. no apparent hallucinations or other psychotic thought process. . Diagnostic Tests Laboratory Laboratory Tests Test 01/15/17 01/16/17 01/16/17 01/16/17 09:46 05:05 05:55 19:18 Prothrombin Time 12.1 SEC (9.8-11.6) Prothromb Time International 1.1 RATIO Ratio Heparin-Induced Platelet Ab Weak Positive (Lisa) (NEGATIVE) HIPA Patient Optical Density 0.454 O.D. (0.000-0.300) White Blood Count 20.1 TH/MM3 (4.0-11.0) Red Blood Count 3.70 MIL/MM3 (4.50-5.90) Hemoglobin 10.6 GM/DL (13.0-17.0) Hematocrit 32.5 % (39.0-51.0) Mean Corpuscular Volume 87.7 FL (80.0-100.0) Mean Corpuscular Hemoglobin 28.5 PG (27.0-34.0) Mean Corpuscular Hemoglobin 32.5 % Concent (32.0-36.0) Red Cell Distribution Width 16.5 % (11.6-17.2) Platelet Count 86 TH/MM3 (150-450) Mean Platelet Volume 10.9 FL (7.0-11.0) Sodium Level 139 MEQ/L (136-145) Potassium Level 4.5 MEQ/L (3.5-5.1) Chloride Level 99 MEQ/L (98-107) Carbon Dioxide Level 25.7 MEQ/L (21.0-32.0) Anion Gap 14 MEQ/L (5-15) Blood Urea Nitrogen 152 MG/DL (7-18) Creatinine 4.50 MG/DL (0.60-1.30) Estimat Glomerular Filtration 13 ML/MIN (>89) Rate Random Glucose 155 MG/DL (74-106) Calcium Level 8.3 MG/DL (8.5-10.1) Phosphorus Level 8.5 MG/DL (2.5-4.9) Magnesium Level 2.7 MG/DL (1.5-2.5) Blood Gas Puncture Site ART LINE ART LINE Blood Gas Patient Temperature 98.6 98.6 Blood Gas HCO3 23 mmol/L 19 mmol/L (22-26) (22-26) Blood Gas Base Excess -1.4 mmol/L -4.4 mmol/L (-2-2) (-2-2) Blood Gas Oxygen Saturation 92 % (90-100) 89 % (90-100) Arterial Blood pH 7.41 7.41 (7.380-7.420) (7.380-7.420) Arterial Blood Partial 37 mmHg (38-42) 31 mmHg (38-42) Pressure CO2 Arterial Blood Partial 76 mmHg 68 mmHg Pressure O2 (61-120) (61-120) Arterial Blood Oxygen Content 14.4 Vol % 13.3 Vol % (12.0-20.0) (12.0-20.0) Arterial Blood 1.3 % (0-4) 1.4 % (0-4) Carboxyhemoglobin Arterial Blood Methemoglobin 1.3 % (0-2) 1.7 % (0-2) Blood Gas Hemoglobin 11.1 G/DL 10.5 G/DL (12.0-16.0) (12.0-16.0) Oxygen Delivery Device VENTILATOR VENTILATOR Blood Gas Ventilator Setting PC/AC PC/AC Blood Gas Inspired Oxygen 85 % 55 % Test 01/17/17 01/17/17 01/18/17 05:05 15:25 05:20 White Blood Count 21.0 TH/MM3 23.6 TH/MM3 (4.0-11.0) (4.0-11.0) Red Blood Count 3.77 MIL/MM3 3.76 MIL/MM3 (4.50-5.90) (4.50-5.90) Hemoglobin 10.8 GM/DL 11.0 GM/DL (13.0-17.0) (13.0-17.0) Hematocrit 33.1 % 33.2 % (39.0-51.0) (39.0-51.0) Mean Corpuscular Volume 87.7 FL 88.3 FL (80.0-100.0) (80.0-100.0) Mean Corpuscular Hemoglobin 28.5 PG 29.3 PG (27.0-34.0) (27.0-34.0) Mean Corpuscular Hemoglobin 32.5 % 33.2 % Concent (32.0-36.0) (32.0-36.0) Red Cell Distribution Width 16.3 % 17.2 % (11.6-17.2) (11.6-17.2) Platelet Count 86 TH/MM3 94 TH/MM3 (150-450) (150-450) Mean Platelet Volume 12.1 FL 12.8 FL (7.0-11.0) (7.0-11.0) Neutrophils (%) (Auto) 92.7 % 94.9 % (16.0-70.0) (16.0-70.0) Lymphocytes (%) (Auto) 1.2 % 1.0 % (9.0-44.0) (9.0-44.0) Monocytes (%) (Auto) 5.9 % (0.0-8.0) 3.5 % (0.0-8.0) Eosinophils (%) (Auto) 0.0 % (0.0-4.0) 0.1 % (0.0-4.0) Basophils (%) (Auto) 0.2 % (0.0-2.0) 0.5 % (0.0-2.0) Neutrophils # (Auto) 19.5 TH/MM3 22.4 TH/MM3 (1.8-7.7) (1.8-7.7) Lymphocytes # (Auto) 0.3 TH/MM3 0.2 TH/MM3 (1.0-4.8) (1.0-4.8) Monocytes # (Auto) 1.2 TH/MM3 0.8 TH/MM3 (0-0.9) (0-0.9) Eosinophils # (Auto) 0.0 TH/MM3 0.0 TH/MM3 (0-0.4) (0-0.4) Basophils # (Auto) 0.0 TH/MM3 0.1 TH/MM3 (0-0.2) (0-0.2) CBC Comment AUTO DIFF AUTO DIFF Differential Comment AUTO DIFF FINAL DIFF CONFIRMED MANUAL Platelet Estimate LOW (NORMAL) LOW (NORMAL) Platelet Morphology Comment NORMAL ENLARGED (NORMAL) (NORMAL) Sodium Level 138 MEQ/L 139 MEQ/L (136-145) (136-145) Potassium Level 4.7 MEQ/L 5.1 MEQ/L (3.5-5.1) (3.5-5.1) Chloride Level 96 MEQ/L 98 MEQ/L (98-107) (98-107) Carbon Dioxide Level 21.9 MEQ/L 22.2 MEQ/L (21.0-32.0) (21.0-32.0) Anion Gap 20 MEQ/L (5-15) 19 MEQ/L (5-15) Blood Urea Nitrogen 176 MG/DL 140 MG/DL (7-18) (7-18) Creatinine 5.70 MG/DL 5.26 MG/DL (0.60-1.30) (0.60-1.30) Estimat Glomerular Filtration 10 ML/MIN (>89) 11 ML/MIN (>89) Rate Random Glucose 128 MG/DL 130 MG/DL (74-106) (74-106) Calcium Level 7.9 MG/DL 8.0 MG/DL (8.5-10.1) (8.5-10.1) Phosphorus Level 8.6 MG/DL 10.0 MG/DL (2.5-4.9) (2.5-4.9) Magnesium Level 2.8 MG/DL 2.8 MG/DL (1.5-2.5) (1.5-2.5) Total Bilirubin 0.5 MG/DL 0.5 MG/DL (0.2-1.0) (0.2-1.0) Aspartate Amino Transf 12 U/L (15-37) 13 U/L (15-37) (AST/SGOT) Alanine Aminotransferase 19 U/L (12-78) 19 U/L (12-78) (ALT/SGPT) Alkaline Phosphatase 43 U/L (45-117) 50 U/L (45-117) Total Protein 5.4 GM/DL 5.8 GM/DL (6.4-8.2) (6.4-8.2) Albumin 2.1 GM/DL 2.0 GM/DL (3.4-5.0) (3.4-5.0) Blood Gas Puncture Site ART LINE Blood Gas Patient Temperature 98.6 Blood Gas HCO3 21 mmol/L (22-26) Blood Gas Base Excess -1.6 mmol/L (-2-2) Blood Gas Oxygen Saturation 94 % (90-100) Arterial Blood pH 7.56 (7.380-7.420) Arterial Blood Partial 23 mmHg (38-42) Pressure CO2 Arterial Blood Partial 80 mmHg Pressure O2 (61-120) Arterial Blood Oxygen Content 15.8 Vol % (12.0-20.0) Arterial Blood 1.5 % (0-4) Carboxyhemoglobin Arterial Blood Methemoglobin 1.6 % (0-2) Blood Gas Hemoglobin 11.9 G/DL (12.0-16.0) Oxygen Delivery Device VENTILATOR Blood Gas Ventilator Setting PC/AC/16/IP 26 Blood Gas Inspired Oxygen 100 % Differential Total Cells 100 Counted Neutrophils % (Manual) 94 % (16-70) Band Neutrophils % 3 % (0-6) Monocytes % 1 % (0-8) Neutrophils # (Manual) 23.4 TH/MM3 (1.8-7.7) Myelocytes 2 % (0-0) Red Cell Morphology Comment NORMAL (NORMAL) Lactic Acid Level 1.3 mmol/L (0.4-2.0) Result Diagram: 01/18/17 0520 01/18/17 0520 Procedures * Intubation/mechanical ventilation * Right internal jugular central line placement 01/06/17 * Left radial arterial line 01/05/17 . Assessment and Plan Disease Oriented Problem List: (1) Atrial fibrillation with rapid ventricular response (2) Cardiomyopathy Comment: 10-15% EF . (3) CHF (congestive heart failure) (4) Thrombosis of left atrium without antecedent myocardial infarction (5) Coronary artery disease Comment: Underwent cardiac cath with stenting on 12/29/16 at [facility]. . (6) Pleural effusion Comment: s/P thoracentesis . (7) Acute renal failure (8) Obstructive sleep apnea of adult Comment: Has classic symptoms of sleep apnea but has never undergone formal sleep testing and never on CPAP. . (9) Hard of hearing Symptom Scale: (1) Pain 0-10 Scale: Unable to quantify Comment: No pre-hospital pain syndromes. Mostly now appears to be uncomfortable from ET tube. Other sources of discomfort probably include: Prolonged bedbound status; Alanis catheter; vascular access lines; SCDs; and restraints were needed. . (2) Dyspnea 0-10 Scale: Unable to quantify Comment: Dyspnea probably from a combination of factors including underlying cardiomyopathy; pleural effusion; bibasilar infiltrates. Dyspnea currently managed by mechanical ventilation. . Pertinent Non-Medical Issues Psychosocial: Patient's primary home is in [place]. He and his also own a home locally in [place]. 2 of their 5 children live in [place]. One is visiting currently. Spiritual: Patient comes from a [employer] background. Not a regular churchgoer. 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 Legal: No completed advance directives. Ethical issues impacting care: Patient is awake and alert but having difficulty and frustrations communicating on basic issues. Reluctant to engage him in a goals of care conversation at this point because I am not sure I can trust the results. . Important Contacts Olena Palmer (spouse) [phone] . Prognosis In spite of history of congestive heart failure, the patient's functional status prior to this recent hospitalization was quite good. He remained active and able to do chores around the house. On the other hand, the patient is currently critically ill. 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 Code Status: Full Code Plan == Code Status: FULL CODE == Decision Making: The patient was awake and alert. However, he has a very difficult time communicating very basic issues such as location, quantity, of pain. He is also easily frustrated with the communication issues. Therefore, I would not recommend that the patient be his sole decision-maker for critical decisions. At the very least, I would recommend shared decision making. As there is no written designation of a health care surrogate, the patient's spouse would be the appropriate proxy decision-maker under the [place] statutes. Pt follow some commands but remains too confused to have capacity. == Goals of medical treatment: The patient's reports there are no written advance directives and the patient has never had any conversations about treatments he would or would not want to have. goals are aggressive. Goals are aggressive. == Pain: Currently sedated == Dyspnea: Dyspnea is currently managed by mechanical ventilation. . == Bowel activity: An excellent bowel regimen is currently in place. No further recommendations at this time == Palliative care we'll continue to follow to assist with symptom management and to further clarify goals of medical treatment as the clinical case evolves. . Attestation To help prompt me to consider important information that might be impacting today's encounter and assessment, information from prior notes written by myself or my colleagues may have been "brought forward" into today's note. My signature on this note, however, is an attestation that I personally performed the exam, history, and/or decision-making noted today, and, unless otherwise indicated, the interactions with patient, family, and staff as well as the review of records all occurred today. I also attest that the listed assessment and stated plan reflect my best clinical judgment today based on the combination of historical information, prior notes, and today's exam/ interactions. When time spent is documented, it refers only to time spent today by the signer, or if indicated, combined time spent today by collaborating physician/nurse practitioner. Wilbert Shultz MD January 18, 2017 10:00
--- NOTE | 2017-01-18 13:30 | HHI.NPPN ---
Subjective General Problems: Anemia, Edema, Heart Disease Renal Failure: Acute History of Present Illness 71-year-old the white male the who is transferred from [facility] to [facility] due to atrial fibrillation with fast ventricular response, he was in the heart catheterization lab and became unstable has to intubated the patient has chronic kidney disease, Cardiomyopathy ejection fraction of only 15% and has severe dilated cardiomyopathy with the clot in left atrium he is on heparin drip and currently on ventilator. Additional Remarks Patient remain on the vent. and sedated, intubated or Roto prone bed Objective Data Data 01/17/17 01/18/17 19:00 07:00 Intake Total 1925 ml 2340 ml Output Total 2050 ml 75 ml Balance -125 ml 2265 ml Intake Oral 150 ml IV Total 1175 ml 1369 ml Tube Feeding 600 ml 971 ml Output Urine Total 20 ml 75 ml Gastric Drainage Total 30 ml Hemodialysis 2000 ml Vital Signs Date Time Temp Pulse Resp B/P Pulse Ox O2 Delivery O2 Flow Rate FiO2 01/18/17 07:30 70 01/18/17 07:30 97 Mechanical Ventilator 70 01/18/17 07:30 97.9 90 16 110/50 97 142/68 01/18/17 07:30 90 01/18/17 05:00 101 01/18/17 05:00 97.9 101 16 112/69 98 127/65 01/18/17 04:00 98 70 01/18/17 03:00 80 01/18/17 03:00 98 Mechanical Ventilator 70 01/18/17 01:23 99 75 01/18/17 00:00 99 Mechanical Ventilator 80 01/18/17 00:00 98.6 110 16 77/26 99 109/61 01/17/17 23:00 80 01/17/17 23:00 117 01/17/17 22:20 99 80 01/17/17 20:10 100 90 01/17/17 20:00 99 Mechanical Ventilator 100 01/17/17 19:54 100 01/17/17 19:00 127 01/17/17 19:00 98.7 127 16 120/68 98 96/52 01/17/17 16:50 94 100 01/17/17 16:00 95 100 01/17/17 15:00 95 Mechanical Ventilator 65 01/17/17 15:00 65 01/17/17 15:00 132 5/17/17 15:00 99.8 131 16 144/65 95 122/73 01/17/17 14:30 93 100 01/17/17 13:50 95 100 01/17/17 13:50 95 100 -: 01/18/17 0520 01/18/17 0520 Physical Exam Eyes Eye Exam: Pupils Equal Throat Throat Exam: Oral Mucosa [place] & Moist Pulmonary Resp Exam: Crackles, Rhonchi, Decreased Bases, Diminished Breath Sounds Cardiology CV Exam: Arrhythmia Gastrointestinal/Abdomen GI Exam: Soft, Non-Tender, Distended Extremeties Extremities Exam: Moderate Edema, Pitting Edema, Dependent Edema Neurologic Neuro Exam: Sedated Assessment/Plan Problem List: (1) Acute renal failure Plan: Patient urine out put is lower He has poor ejection fraction and is intubated Severe cardiomyopathy prognosis is guarded. hemodialysis next tomorrow last UF 2 L CXR Rt pleural effusion FiO2 70% on Roto prone bed Platelet low HIT Weak pos serotonin release assay pending on [place] (2) CKD (chronic kidney disease) stage 4, GFR 15-29 ml/min Plan: Has high creatinine kidney ultrasound reviewed (3) CHF (congestive heart failure) Plan: Severe cardiomyopathy EF 15% (4) Atrial fibrillation with rapid ventricular response Plan: Has a blood clot in LA appendage Problem Qualifiers (1) CHF (congestive heart failure): Christa Hahn MD January 18, 2017 13:30
--- NOTE | 2017-01-18 18:01 | HHI.PR ---
Subjective Remarks Sedated on Vent support , FIO2 at 45%. was dialyzed. Had a bronchoscopy done last PM for mucus plugs. Now better. Dialysis done,and CXR still shows pulmonary edema. Objective Vital Signs Date Time Temp Pulse Resp B/P Pulse Ox O2 Delivery O2 Flow Rate FiO2 01/18/17 17:46 93 40 01/18/17 15:00 97 01/18/17 15:00 98 Mechanical Ventilator 40 01/18/17 15:00 97.6 97 17 98 135/66 01/18/17 15:00 70 01/18/17 14:44 94 40 01/18/17 11:00 104 01/18/17 11:00 98 Mechanical Ventilator 40 01/18/17 11:00 70 01/18/17 11:00 97.8 104 16 86/52 98 146/69 01/18/17 07:30 70 01/18/17 07:30 97 Mechanical Ventilator 70 01/18/17 07:30 97.9 90 16 110/50 97 142/68 01/18/17 07:30 90 01/18/17 05:00 101 01/18/17 05:00 97.9 101 16 112/69 98 127/65 01/18/17 04:00 98 70 01/18/17 03:00 80 01/18/17 03:00 98 Mechanical Ventilator 70 01/18/17 01:23 99 75 01/18/17 00:00 99 Mechanical Ventilator 80 01/18/17 00:00 98.6 110 16 77/26 99 109/61 01/17/17 23:00 80 01/17/17 23:00 117 01/17/17 22:20 99 80 01/17/17 20:10 100 90 01/17/17 20:00 99 Mechanical Ventilator 100 01/17/17 19:54 100 01/17/17 19:00 127 01/17/17 19:00 98.7 127 16 120/68 98 96/52 I/O 01/17/17 01/17/17 01/17/17 01/18/17 01/18/17 01/18/17 07:00 15:00 23:00 07:00 15:00 23:00 Intake Total 1619 ml 3559 ml 706 ml Output Total 200 ml 2000 ml 75 ml 50 ml Balance 1419 ml -2000 ml 3484 ml 656 ml Intake Oral 150 ml IV Total 1037 ml 2125 ml 419 ml Tube Feeding 582 ml 1284 ml 287 ml Output Urine Total 200 ml 45 ml 50 ml Gastric Drainage Total 30 ml Hemodialysis 2000 ml Result Diagram: 01/18/1751901/18/17519 Objective Remarks GENERAL: This is an obese, elderly man who is intubated, sedated, assisting the ventilator. HEENT: Head is normocephalic. Pupils are reactive. NECK: Supple with no venous distention. Trachea is midline. CHEST: Decreased breath sounds with crackles at both lung bases. HEART: The heart sounds are irregular S1-S2. No murmur. ABDOMEN: Soft. Obese without masses. No organomegaly. EXTREMITIES: 1 + edema. Decreased peripheral pulses. Reflexes are not elicited. The patient is sedated. SKIN: Dry and cool. Assessment and Plan Assessment and Plan IMPRESSION 1. Hypoxic respiratory failure. 2. Left lower lobe atelectasis and possible pneumonia with aspiration. 3. Left pleural effusion resolved. 4. Cardiomyopathy and congestive heart failure. 5. Obstructive sleep apnea. 6. Diabetes mellitus. 7. Atrial fibrillation. 8. Nasopharyngeal bleed Plan : 1. Wean FIO2 to keep sat >90. 2. Wean PEEP to 10 CM 3. Antibiotics per ID. 4. CBC CXR ,BMP in am. 5. Nebs qid , duoneb. 6. Lavage and suction trach 7. Tube feeds at 50 CC 8. Solumedrol 40 mg IV q8h Julius Burch MD January 18, 2017 18:01
[2017-01-18] MEDS: fentaNYL DRIP 250 ML IV SCH (19:45)
[2017-01-19] VITALS (17 sets, daily range): BP systolic 111–149; BP diastolic 62–74; PULSE 83–117; RESP 16–17; TEMP 97.5–97.7; O2SAT 86–100
[2017-01-19] MEDS: INSULIN ASPART SUPPLEMENTAL SCALE SQ SCH ×4 (00:30→17:37)
[2017-01-19] MEDS: PROPOFOL 1000 MG/100 ML IV SCH ×5 (01:03→22:16)
[2017-01-19] MEDS: metroNIDAZOLE 500 MG TAB PO SCH ×3 (01:04→16:50)
[2017-01-19] MEDS: RESP: SODIUM CHLORIDE 3% 4 ML NEB NEB SCH ×4 (03:47→21:45)
[2017-01-19] MEDS: RESP: IPRATROPIUM 0.5 MG/2.5 ML NEB NEB SCH ×4 (03:47→21:44)
[2017-01-19] MEDS: RESP: LEVALBUTEROL HYDROCHLORIDE 0.63 MG/3 ML NEB (SCH) NEB ×4 (03:47→21:44)
[2017-01-19] MEDS: CHLORHEXIDINE GLUCONATE 2 % 1 PACK (2 CLOTHS) TOP SCH (04:00)
[2017-01-19 05:23] LABS: AUTOMATED NEUTROPHIL # 17.2 TH/MM3 (1.8-7.7); BASOPHIL # 0.1 TH/MM3 (0-0.2); BASOPHIL % 0.7 % (0.0-2.0); HEMATOCRIT 31.5 % (39.0-51.0); LYMPH % 0.9 % (9.0-44.0); LYMPHOCYTE # 0.2 TH/MM3 (1.0-4.8); MEAN CELL VOLUME 89.5 FL (80.0-100.0); MEAN CORPUSCULAR HEMOGLOBIN 28.5 PG (27.0-34.0); MEAN CORPUSCULAR HGB CONC 31.8 % (32.0-36.0); MONO % 3.2 % (0.0-8.0); NEUT % 95.2 % (16.0-70.0); PLATELET COUNT 73 TH/MM3 (150-450); RED BLOOD COUNT 3.52 MIL/MM3 (4.50-5.90); WHITE BLOOD COUNT 18.1 TH/MM3 (4.0-11.0)
--- NOTE | 2017-01-19 05:25 | RADRPT ---
EXAM DATE/TIME: 01/19/2017 04:38 [facility] COMPARISON: CHEST SINGLE AP, January 18, 2017, 4:23. INDICATIONS : Shortness of breath. MEDICAL HISTORY : Hypertension. SURGICAL HISTORY : Coronary artery stent. ENCOUNTER: Subsequent ACUITY: 2 weeks PAIN SCORE: Non-responsive. LOCATION: Bilateral chest FINDINGS: Bilateral mostly perihilar and basilar airspace disease similar to 18 January. Endotracheal tube unchange d. A left internal jugular and left subclavian central line tip in superior vena cava. NG enters stom ach. No pneumothorax. CONCLUSION: 1. Support apparatus unchanged. Relatively stable bilateral airspace disease. Osmany Javed MD on January 19, 2017 at 5:22 Board Certified Radiologist. This report was verified electronically.
[2017-01-19 05:27] LABS: HEMO FLAGS AUTO DIFF
[2017-01-19] MEDS: methylPREDNISolone SOD SUCC 40 MG/1 ML VIAL IV PUSH SCH ×2 (05:47→16:49)
[2017-01-19] MEDS: METOCLOPRAMIDE HCL 10 MG/2 ML VIAL IV PUSH SCH ×3 (05:48→22:10)
[2017-01-19] MEDS: FAMOTIDINE 20 MG/2 ML VIAL IV PUSH SCH (05:48)
[2017-01-19] MEDS: ARTIFICIAL TEARS OPTH SOLN 15 ML BTL EACH EYE SCH ×3 (05:49→22:10)
[2017-01-19 05:55] LABS: ALKALINE PHOSPHATASE 49 U/L (45-117); ALT (GPT) 20 U/L (12-78); ANION GAP 20 MEQ/L (5-15); AST (GOT) 13 U/L (15-37); BICARBONATE 20.5 MEQ/L (21.0-32.0); CHLORIDE 97 MEQ/L (98-107); GLOMERULAR FILTRATION RATE 10 ML/MIN (>89); MAGNESIUM 2.9 MG/DL (1.5-2.5); POTASSIUM 5.3 MEQ/L (3.5-5.1); SODIUM (NA) 137 MEQ/L (136-145); TOTAL BILIRUBIN ADULT 0.5 MG/DL (0.2-1.0)
[2017-01-19 06:10] LABS: BLOOD UREA NITROGEN 155 MG/DL (7-18)
--- NOTE | 2017-01-19 06:41 | HHI.PR ---
Addendum to Inpatient Note Addendum Reason: Additional Documentation Additional Information Chart review documentation: No fevers WBC trending downwards (likely persistently high due to ongoing bleeding related aspiration over last week) Cultures negative Continue Cefepime IV and flagyl covering for me this weekend. Gema Gage MD January 19, 2017 06:41
[2017-01-19 07:05] LABS: BANDS 4 % (0-6); METAMYELOCYTES 3 % (0-1); NEUTROPHIL # MANUAL DIFF 17.9 TH/MM3 (1.8-7.7); POLYS (SEG NEUTROPHILS) 92 % (16-70); WBC DIFF SAMPLE 100
[2017-01-19 07:06] LABS: PLATELET ESTIMATE SMEAR LOW (NORMAL); PLATELET MORPHOLOGY ENLARGED (NORMAL)
[2017-01-19 07:08] LABS: ACANTHOCYTES OCC (NORMAL); BURR CELLS 1+ (NORMAL); SCAN/DIFF FINAL DIFF MANUAL
--- NOTE | 2017-01-19 07:14 | HHI.CCPN ---
Subjective Remarks/Hospital Course This is a 71-year-old gentleman that presented to [facility] secondary to dyspnea and atrial fibrillation with RVR. The patient has a medical history significant for obesity and hypertension. During his hospitalization at [facility], the patient underwent an echocardiogram which showed severe systolic dysfunction with an ejection fraction of 1015 % the patient then underwent a cardiac catheterization showing significance with left circumflex 90%. The patient underwent multiple attempts of unsuccessful synchronized cardioversion. The patient also underwent medical management with beta blockers, and calcium channel blockers that were also unsuccessful. The patient was transferred to [facility] for cardiac ablation with Dr. Jimenez. The patient was scheduled for cardiac ablation, the procedure was canceled. The patient required emergent intubation and required ventilator management a VLADIMIR was performed showing a clot in the left atrial appendage. The patient was placed on IV Cardizem, and an amiodarone infusion. Critical Care medicine was consulted for management. 01/06: Tmax 97.4. The patient remained on elevated vent settings with FiO2 of 1.0 overnight, PEEP requirements were increased to 8, to maintain a PaO2 of greater than [address] scan of the chest was obtained which noted bilateral effusions small, basilar consolidations right worse than the left, and a loculated area representing a possible pneumonia process, empyema, as well as aspiration or just loculated fluid as well as a small pericardial effusion. The patient continues on Cardizem and amiodarone infusions with a heart rate overnight 80s -115. The patient's vasopressor requirements of phenylephrine diminished to 20 mcgs. 01/07: Tmax 99.2. Yesterday the central line was placed for vasoactive medications and CVP monitoring, small hematoma noted near the right IJ area soft no compression of major vessels, with resolution of bleeding in that area. Phenylephrine was discontinued yesterday. The patient heart rate remains today [id number]. Cardizem infusion has been discontinued in the setting of EF of 10-15%. Esmolol infusion to be initiated this a.m.. Coumadin was initiated last night now placed on hold due to patient bleeding from nasopharynx and oropharynx. INR currently 1.2. Plan for CT thorax tomorrow, with possible IR intervention versus CVT consultation for possible empyema the patient will remain on heparin infusion, and transition onto Coumadin after any potential procedures to be initiated. Chest x-ray slightly improved FiO2 decreasing now 70%. Sedation vacation yesterday revealed GCS 11 T, patient alert responsive following commands. With initiation of antibiotics, leukocytosis resolved. ID consulted Dr. Gage. Blood cultures are pending. 01/08: Patient's heart rate 110-[address] scan of the chest imaging revealed fluid. Plan for thoracentesis and and studies of pleural fluid , this afternoon. The patient remains on amiodarone and heparin infusions, per cardiology. Heparin held, for thoracentesis this afternoon, and then will be resumed. The patient was maintained on CPAP trial for approximately one hour yesterday. During sedation vacation patient was alert following commands recognizing family. Plan to resume CPAP trials this afternoon post thoracentesis. 01/09: The patient underwent CT-guided thoracentesis yesterday , on the right side noted 400 cc of fluid was removed , with specimens ordered to be sent for evaluation .This morning chest x-ray performed showing almost complete opacification of the left lung. FiO2 requirements increase patient on FiO2 of 80%, O2 sat 94%. Left chest ultrasound obtained revealing no fluid. Consent obtained BAL performed, revealing emanating from the nearest previously ( patient was noted to have epistaxis with initiation of heparin on 01/06). Blood clots noted in left lung upon visualization with bronchoscopy, saline lavage applied, minimal blood clots removed. The patient was initiated on Mucomyst 10% , and pulmonology was consulted. Dr. Tasia Lama following. The patient shows no signs or evidence of bleeding actively, plan to consult ENT if signs of active bleeding become evident. Hemoglobin remains stable.The patient converted into sinus rhythm is today afternoon. Cardiology management of medications, IV amiodarone discontinued this afternoon. 01/10: Tmax 99.0. Chest x-ray shows slight improvement of left lung today. Plan for repeat bronchoscopy per Dr. Burch this a.m, and the patient continues on Mucomyst. The patient's cardiac rhythm reverted to A. fib last evening, amiodarone IV infusion reinstituted per Dr. Jimenez. 01/11: TMax 100.0. Much improved chest x-ray this morning. The patient continues in A. fib with a rate of 120, he continues on amiodarone, heparin infusion per cardiology. No evidence of active bleeding. 5/12 Patient Remains sedated with Diprivan, intubated. T:99.9. On Neosyn 15 mics , heparin and Amio drips. In Afib with RRV. Patient s/p repeat bronch with BAL yesterday by Dr. Burch and ETT replacement by Dr. Sanchez. On PC/AC with PEEP:14 , FIO2 100%. 01/13: TMax 100.2. Last night the nurse reported that the patient had a small amount of epistaxis, and blood in the oropharynx noted. The area continued to bleed during the night. ENT has been consulted. Heparin has been placed on hold , ASA has been discontinued in the setting of acute renal failure. The patient continues on amiodarone infusion , heart rate 120's. Neosynephrine has been discontinued, and Levophed instituted. Creatinine noted to be 4.5. As per report , states patient does not want dialysis. The patient continues on elevated PEEP of 14. 5/14: Heparin was discontinued yesterday in the setting of continued bleeding in the nasal/ oropharyngeal region. ENT was consulted and nasal packing was applied. During the night the patient still had small noted amount of bleeding from the oropharyngeal area plan today for oropharyngeal packing. Hgb 9, will transfuse .The patient was placed on norepinephrine for currently at 1-2 mcgs per minute. PEEP has been decreased to 12, with adequate oxygenation a PaO2 of 71. 5/15: Tmax 99.0. The patient continues to be anemic and thrombocytopenic, contributory factors being uremia. The patient's /family decided to pursue hemodialysis at this point. The patient received 1 unit of packed red blood cells yesterday. The patient was initiated on dialysis yesterday afternoon, with approximately 3 L removed. Nasal gauze packing removed and placement of nasal balloons by ENT yesterday. Oral gauze packing to be removed today. The patient received 2 separate doses of digoxin, A. fib heart rate ranging 80- < 120. The patient continues to have high ventilatory requirements, FiO2 was increased throughout the night to currently 80%, to maintain O2 sat greater than 92%. 01/16: FiO2 at 85%. Large clots removed from oropharynx overnight. Transfused 2 units PRBCs yesterday. No bowel movement. Tolerating tube feeds at 40 cc now with Nepro 01/17: Maximum 100.6. CURRENT TEMPERATURE 98.1. Central line pulled out yesterday. Flolan initiated yesterday and FiO2 down to 65%. Tolerating tube feeds. No bowel movement. Arousable weakly follow commands yesterday 01/18: Tmax 99.8. Currently afebrile. Initially, hemoptysis with desaturation requiring bronchoscopy. See bronchoscopy note. Roto-Rest bed ordered. FiO2 from 100-70% currently. On Nimbex drip. No BM. Tolerating tube feeds. Subjective: 01/19: Afebrile. FiO2 down to 40%. We will attempt a wean Flolan today. On Nimbex drip. Positive BM yesterday. Tolerating tube feeds. Objective Vital Signs Date Time Temp Pulse Resp B/P Pulse Ox O2 Delivery O2 Flow Rate FiO2 01/19/17 04:20 93 01/19/17 04:00 40 01/19/17 04:00 97.5 17 95 149/74 01/19/17 04:00 Mechanical Ventilator Intake and Output 01/18/17 01/18/17 01/19/17 08:00 16:00 00:00 Intake Total 706 ml 2545 ml Output Total 50 ml 560 ml Balance 656 ml 1985 ml Result Diagram: 01/19/17 0500 01/19/17 0500 Imaging Last Impressions Chest X-Ray 01/19/17 0600 Signed Impressions: Service Date/Time: Thursday, January 19, 2017 04:38 - CONCLUSION: 1. Support apparatus unchanged. Relatively stable bilateral airspace disease. Osmany Javed MD Abdomen X-Ray 01/18/17 0000 Signed Impressions: Service Date/Time: January 07:52 - CONCLUSION: 1. No evidence of obstruction. Manuel Petersen MD Renal Ultrasound 01/09/17 0000 Signed Impressions: Service Date/Time: Monday, January 09, 2017 13:56 - CONCLUSION: 1. Right kidney is sonographically normal. 2. Benign-appearing 2.4 x 1.5 cm cortical cyst in the midpole of the left kidney. 3. Subcentimeter echogenic, non-shadowing foci in the midpole of the left kidney would be unusual for stones and may represent ectopic hilar fat. No hydronephrosis. 4. Urinary bladder is decompressed with a Alanis catheter. Douglas Ward MD Chest Ultrasound 01/09/17 0000 Signed Impressions: Service Date/Time: Monday, January 09, 2017 08:18 - CONCLUSION: No left-sided pleural effusion. The abnormality in the left chest on chest radiograph is likely related to mucous plugging. When patient had a CT scan yesterday the left lung was well aerated. Edgardo Mayorga MD Chest CT 01/08/17 0600 Signed Impressions: Service Date/Time: Sunday, January 08, 2017 08:46 - CONCLUSION: Massive cardiomegaly with panchamber enlargement extensive coronary calcifications. Stable trace pericardial effusion. Increasing bibasilar consolidative changes with minimal bilateral pleural effusions.. Rhys Fritz MD FACR Thoracentesis 01/08/17 0000 Signed Impressions: Service Date/Time: Sunday, January 08, 2017 16:08 - CONCLUSION: Uncomplicated CT-guided thoracentesis on the right. The left sided thoracentesis was not performed as there was no significant left pleural fluid. The abnormality on most recent chest x-ray was secondary to mucous plugging and left sided atelectasis. Edgardo Mayorga MD Objective Remarks GENERAL: 71-year-old male, critically ill-appearing appropriately stated age, obese male resting in rotarest bed SKIN: Warm and dry. No rash HEAD: Atraumatic. Normocephalic. EYES: Pupils equal and round, 3mm and reactive. No scleral icterus. No injection or drainage. ENT: Bilateral Rhino Rocket . Old clots and or NECK: Trachea midline. Unable to assess JVD secondary to body habitus. Left neck was Vas-Cath is clean dry and intact CARDIOVASCULAR: Irregular rate and rhythm, Tachycardic. S1, S2 no S4 without murmur RESPIRATORY: Diminished breath sounds throughout. Few crackles in bases bilaterally. Breath sounds equal bilaterally. High vent requirements GASTROINTESTINAL: Abdomen soft, obese non-tender, nondistended. I Mag[place] bowel sounds MUSCULOSKELETAL: Extremities with 1+ peripheral edema. No obvious deformities. Posterior tibialis bilaterally. NEUROLOGICAL: Intubated and sedated. Follows commands moving extremities 4, when off sedation documented last Sunday. Urinary Catheter: Yes Assessment to: Continue Alanis insert reason: ICU Pt Getting Diuretics Date of Insertion: January 05, 2017 Vascular Central Line Catheter: Yes Assessment to: Continue Date of Insertion: January 17, 2017 Line: Central Venous Catheter Side: Left Location: Subclavian, Jugular A/P Assessment and Plan Neuro/Psych: Epistaxis Propofol at 20 mcg/kg/m and fentanyl drip at 100 an hour for sedation to maintain ventilator synchrony/paralysis Nimbex drip at 1.0 Maintain [id number] 2 out of 4/BIS 40-60 Goal of RASS -5 01/07 No active signs of bleeding. Epistaxis resolved 01/12 New onset epistaxis, heparin discontinued Epistaxis-ENT consulted-nasal balloons in situ maintain balloons until 01/19 per ENT recommendation, oropharyngeal packing to be removed by ENT 01/15 ENT following - Dr. Byrd Respiratory: Acute hypoxic respiratory failure Left lung consolidation 2/2 previous event of epistaxis, clotted blood left lung -resolved SONU Probable aspiration Possible multilobar aakljlgjf-[id number] Bilateral pleural effusions Continue with vent support keep sat >92% On PC/AC RR 16, IP:12, IT:1.65, PEEP;10, FIO2 40, decrease FIO2 as tolerated, Flolan currently 50 ng/kg per minute. Attempt wean today see orders CXR 01/17-no change in bibasilar infiltrates Currently on Xopenex and Atrovent aerosols every 6 hours ICU vent bundle. Pulmonology following- Dr. Burch 01/05 CT chest-pericardial effusion small, bilateral effusions, basilar consolidation and right greater than left Solu-Medrol 40 mg IV Q8hr 01/08-right CT-guided thoracentesis-400 cc removed, sent for cytology and cultures s/p bronch 01.11 by- Dr. Burch for blood clots left lung Status post bronch 01/17 by creel cleaner - bloody mucous plug at saturnino/mainstem section cleared. No obvious source of bleeding. CV: A. fib with RVR Left atrial appendage thrombus Cardiomyopathy Acute Systolic CHF Hypertension Dyslipidemia Currently norepinephrine Currently on Amiodarone 200 mg twice a day 01/13- Heparin, ASA discontinued due to epistaxis 01/05 VLADIMIR( Gate Watchman)-left atrial thrombus EF 15-20%. Systolic function reduced. Diffuse hyperkinesis. 12/26 [facility] severe systolic dysfunction EF 1015%, mitral valve mild to moderate regurg, LAE, tricuspid Valve-mild to moderate regurg, small pericardial effusion, 12/19 cardiac cath left circumflex 90% occlusion Management per Cardiology -Dr. Jimenez 01/15 started on Coreg 6.25 mill grams by mouth twice a day will be placed on hold secondary norepinephrine requirements At home on Coreg 25 mg twice a day, aspirin 81 mg daily, hydralazine 25 mg twice a day and HCTZ25 mg by mouth daily Renal: Acute on chronic kidney disease stage IV Nephrology following-Dr. Hahn Monitor renal function, I/O's, avoid nephrotoxins. Will need hemodialysis today Patient and family declined dialysis 01/12 Vascath placement Hemodialysis initiated 01/14. -2 L 01/17 FEN/GI: Morbid obesity Hyperkalemia Hyperphosphatemia Tube feeds Nepro @50 cc, no residuals noted Prevacid for GI prophylaxis Bowel Colace/Senokot/MiraLAX twice a day. 600 cc stool overnight. Fecal containment device placed PhosLo 667 3 times a day initiated Heme: Leukocytosis Normocytic anemia Thrombocytopenia Monitor CBC.Hgb currently stable around 10 Transfuse 3 units PRBCs and submission Will transfuse for platelet count less than 50,000 Weakly positive HIT panel-CLIFFORD ordered. Not a candidate for DTI with epistaxis ID: Likely aspiration pneumonia 01/06 urine, sputum, blood cultures-NGTD 01/06-Legionella urine antigen negative 01/09 - bronchoscopy - yeast/ID to follow 01/12 - blood cultures 2 - no growth Antibiotics per ID ( Cefepime/Flagyl) -Dr. Gage following, will continue with nasal packing -Monitor for signs of infections ( Fever, WBC) Endocrine: Close monitoring per ICU protocol-medium dose regimen -- SSI Accu-Cheks every 6 hours for glycemic control Prophylaxis: GI Prophylaxis Prevacid 30 mg at night DVT Prophylaxis -- SCDs, no pharmacological DVT prophylaxis in the setting of bleeding Heparin discontinued 01/13 Lines: Peripheral IV's. Left subclavian 01/17, left vascular catheter 01/14 Dispo: is Olena Muhammad [phone] discussed with her at length yesterday prior to bronchoscopy and after procedures Discussed BACK JOINERpowderman: The total critical care time was 35 minutes. Time to perform other separately billable procedures was not included in the critical care time. Koby Cagle MD January 19, 2017 07:14
[2017-01-19] MEDS ORDERED: SODIUM CHLOR 0.9% 1000 ML INJ 1,000 ML IV PRN ×2 (08:06)
[2017-01-19] MEDS ORDERED: HEPARIN SODIUM - IV 10,000 UNITS/10 ML VIAL IVF PRN (08:15)
[2017-01-19] MEDS ORDERED: cloNIDine HCL 0.1 MG TAB PO PRN (08:15)
[2017-01-19] MEDS ORDERED: SODIUM CHLORIDE 0.9% FLUSH 10 ML FLUSH IV FLUSH PRN (08:15)
[2017-01-19] MEDS ORDERED: ONDANSETRON HCL 4 MG/2 ML VIAL IV PRN (08:15)
[2017-01-19] MEDS ORDERED: NITROGLYCERIN 0.4 MG SL 25 TABS/BTL SL PRN (08:15)
[2017-01-19] MEDS ORDERED: GELATIN 12 MM/7 MM FOAM TOP PRN (08:15)
[2017-01-19] MEDS ORDERED: HEPARIN SODIUM - IV 10,000 UNITS/10 ML VIAL PRN (08:15)
[2017-01-19] MEDS ORDERED: diphenhydrAMINE HCL 25 MG CAP PO PRN (08:15)
[2017-01-19] MEDS: CISATRACURIUM INJ 100 MG in SODIUM CHLOR 0.9% 250 ML INJ 240 ML IV SCH ×2 (08:21→20:29)
[2017-01-19] MEDS: CALCIUM ACETATE 667 MG CAP PO SCH ×3 (08:22→20:29)
[2017-01-19] MEDS: SODIUM CHLORIDE 0.9% FLUSH 10 ML FLUSH IV FLUSH SCH ×2 (08:22→22:11)
[2017-01-19] MEDS: AMIODARONE 200 MG TAB PO SCH ×2 (08:22→20:33)
[2017-01-19] MEDS: SODIUM CHLORIDE 0.9% FLUSH 10 ML FLUSH IVF SCH (08:22)
[2017-01-19] MEDS: LANSOPRAZOLE SOLUTAB 30 MG TAB NG SCH (08:22)
[2017-01-19] MEDS: CHLORHEXIDINE 0.12% (ORAL KIT) 15 ML CUP MT SCH ×2 (08:23→20:24)
--- NOTE | 2017-01-19 08:58 | HHI.NPPN ---
Subjective General Problems: Anemia, Edema, Heart Disease Renal Failure: Acute History of Present Illness 71-year-old the white male the who is transferred from [facility] to [facility] due to atrial fibrillation with fast ventricular response, he was in the heart catheterization lab and became unstable has to intubated the patient has chronic kidney disease, Cardiomyopathy ejection fraction of only 15% and has severe dilated cardiomyopathy with the clot in left atrium he is on heparin drip and currently on ventilator. Additional Remarks Patient remain on the vent. and sedated, intubated or Roto prone bed Objective Data Data 01/18/17 01/19/17 19:00 07:00 Intake Total 2545 ml 2001 ml Output Total 560 ml 175 ml Balance 1985 ml 1826 ml Intake Oral 0 ml IV Total 1609 ml 1410 ml Tube Feeding 586 ml 481 ml Other 350 ml 110 ml Output Urine Total 60 ml 75 ml Stool Total 500 ml 100 ml Gastric Drainage Total 0 ml Vital Signs Date Time Temp Pulse Resp B/P Pulse Ox O2 Delivery O2 Flow Rate FiO2 01/19/17 07:30 96 Mechanical Ventilator 40 01/19/17 07:30 83 01/19/17 07:30 97.5 83 17 96 135/72 01/19/17 07:30 40 01/19/17 04:20 93 01/19/17 04:00 40 01/19/17 04:00 97.5 95 17 95 149/74 01/19/17 04:00 95 Mechanical Ventilator 40 01/19/17 03:45 92 40 01/19/17 01:00 92 40 01/19/17 00:00 92 01/19/17 00:00 96 Mechanical Ventilator 40 01/19/17 00:00 97.6 97 16 97 145/74 01/19/17 00:00 40 01/18/17 22:10 93 40 01/18/17 20:00 97 40 01/18/17 20:00 97 Mechanical Ventilator 40 01/18/17 20:00 40 01/18/17 20:00 93 01/18/17 20:00 97.6 93 16 97 138/71 01/18/17 19:00 40 01/18/17 19:00 95 Mechanical Ventilator 40 01/18/17 17:46 93 40 01/18/17 15:00 97 01/18/17 15:00 98 Mechanical Ventilator 40 01/18/17 15:00 97.6 97 17 98 135/66 01/18/17 15:00 70 01/18/17 14:44 94 40 01/18/17 11:00 104 01/18/17 11:00 98 Mechanical Ventilator 40 01/18/17 11:00 70 01/18/17 11:00 97.8 104 16 86/52 98 146/69 -: 01/19/17 0500 01/19/17 0500 Physical Exam Eyes Eye Exam: Pupils Equal Throat Throat Exam: Oral Mucosa [place] & Moist Pulmonary Resp Exam: Crackles, Rhonchi, Decreased Bases, Diminished Breath Sounds Cardiology CV Exam: Arrhythmia Gastrointestinal/Abdomen GI Exam: Soft, Non-Tender, Distended Extremeties Extremities Exam: Moderate Edema, Pitting Edema, Dependent Edema Neurologic Neuro Exam: Sedated Assessment/Plan Problem List: (1) Acute renal failure Plan: Patient urine out put is lower He has poor ejection fraction and is intubated Severe cardiomyopathy prognosis is guarded. hemodialysis proceedings poor blood flow UF 3 L as tolerates CXR Rt pleural effusion FiO2 40% on Roto prone bed Platelet low HIT Weak pos serotonin release assay pending on Flolan HIT Ab pos Platelets low consult Hematology avoid heparin (2) CKD (chronic kidney disease) stage 4, GFR 15-29 ml/min Plan: Has high creatinine kidney ultrasound reviewed (3) CHF (congestive heart failure) Plan: Severe cardiomyopathy EF 15% (4) Atrial fibrillation with rapid ventricular response Plan: Has a blood clot in LA appendage Problem Qualifiers (1) CHF (congestive heart failure): Christa Hahn MD January 19, 2017 08:58
[2017-01-19] MEDS: GENTAMICIN SULFATE (DIALYSIS USE ONLY) 20 MG/2 ML VIAL IV PRN (09:15)
[2017-01-19] MEDS: EPOPROSTENOL NEB SOLUTION 50 NG/KG/MIN 100 ML NEB SCH ×4 (09:50→17:14)
--- NOTE | 2017-01-19 11:23 | HHI.HCPN ---
Seen patient, family including , ask palliative to care to not follow for the time being. They do have the phone numbers and say they will call. They decline further visits at this time. Wilbert Shultz MD January 19, 2017 11:23
--- NOTE | 2017-01-19 12:42 | PD.PROCEDR ---
Procedure Note Procedure DATE: 01/19/2017 Hemodialysis line PLACEMENT: Right femoral] vein. Ultrasound-guided INDICATION: Hemodialysis access CONSENT Informed consent for procedure was obtained moderate. DESCRIPTION OF THE PROCEDURE The patient was placed in supine position. The skin was cleansed with Chloraprep. Additional barrier precautions included large sterile drape, sterile gloves, sterile gown, face mask, and hat. 1 % lidocaine was used for local anesthesia. Under direct ultrasound guidance and on initial attempt, the vein was accessed with an introducer needle. The guide wire was advanced and the tract was dilated. Using Seldinger technique a 14 Spanish 24 cm hemodialysis catheter was advanced to a depth of 24 centimeters. The guide wire was removed. All ports had good return of dark venous blood and flushed easily with saline. The central line was secured with 2.0 silk. A sterile dressing with antibiotic disc was applied. ESTIMATED BLOOD LOSS: Minimal COMPLICATIONS: No apparent complications. Koby Cagle MD January 19, 2017 12:42
[2017-01-19] MEDS ORDERED: DESMOPRESSIN ACETATE 4 MCG/ML VIAL IV PUSH ONE (12:45)
[2017-01-19] MEDS ORDERED: DEXTROSE 50% IN WATER 50 ML VIAL(D50) IV PUSH ONE (12:45)
[2017-01-19] MEDS: CEFEPIME INJ 2,000 MG in SODIUM CHLORIDE 0.9% INJ 100 ML IV SCH (13:12)
[2017-01-19] MEDS ORDERED: CALCIUM GLUCONATE 10% 1 GM/10 ML VIAL SLOW IVP ONE (13:15)
[2017-01-19] MEDS ORDERED: SODIUM POLYSTYRENE SULFONATE SUSP 15 GM/60 ML CUP PO ONE (13:15)
[2017-01-19] MEDS ORDERED: SODIUM BICARBONATE 8.4% SOLN 50 MEQ/50 ML VIAL SLOW IVP ONE (13:15)
[2017-01-19] MEDS ORDERED: INSULIN HUMAN REGULAR 1,000 UNITS/10 ML VIAL IV PUSH ONE (13:15)
[2017-01-19] MEDS ORDERED: DESMOPRESSIN IV ONE (13:30)
[2017-01-19] MEDS ORDERED: CALCIUM GLUCONATE INJ 1 GM in SODIUM CHLORIDE 0.9% INJ 100 ML IV ONE (13:30)
[2017-01-19] MEDS ORDERED: SODIUM CHLORIDE 0.9% IV ONE (13:30)
[2017-01-19] MEDS: EPOETIN ALFA 4,000 UNITS/ML VIAL IV PRN (15:10)
[2017-01-19] MEDS: ALBUMIN HUMAN 25% 25 GM/100 ML BAGP IV PRN (15:17)
[2017-01-19] MEDS ORDERED: EPOPROSTENOL NEB SOLUTION 40 NG/KG/MIN 100 ML NEB SCH ×2 (18:00)
--- NOTE | 2017-01-19 19:44 | HHI.PR ---
Subjective Remarks Sedated on Vent support , FIO2 at 40%. was dialyzed. Had a transfusion with packed red cells CXR still shows pulmonary edema. No active bleeding Objective Vital Signs Date Time Temp Pulse Resp B/P Pulse Ox O2 Delivery O2 Flow Rate FiO2 01/19/17 15:00 117 01/19/17 15:00 97.5 117 16 95 111/66 01/19/17 15:00 95 Mechanical Ventilator 40 01/19/17 15:00 40 01/19/17 14:31 98 40 01/19/17 12:00 98 100 01/19/17 11:00 97.7 92 16 95 134/62 01/19/17 11:00 40 01/19/17 11:00 89 01/19/17 11:00 95 Mechanical Ventilator 40 01/19/17 09:15 95 40 01/19/17 07:30 96 Mechanical Ventilator 40 01/19/17 07:30 83 01/19/17 07:30 97.5 83 17 96 135/72 01/19/17 07:30 40 01/19/17 04:20 93 01/19/17 04:00 40 01/19/17 04:00 97.5 95 17 95 149/74 01/19/17 04:00 95 Mechanical Ventilator 40 01/19/17 03:45 92 40 01/19/17 01:00 92 40 01/19/17 00:00 92 01/19/17 00:00 96 Mechanical Ventilator 40 01/19/17 00:00 97.6 97 16 97 145/74 01/19/17 00:00 40 01/18/17 22:10 93 40 01/18/17 20:00 97 40 01/18/17 20:00 97 Mechanical Ventilator 40 01/18/17 20:00 40 01/18/17 20:00 93 01/18/17 20:00 97.6 93 16 97 138/71 I/O 01/18/17 01/18/17 01/18/17 01/19/17 01/19/17 01/19/17 07:00 15:00 23:00 07:00 15:00 23:00 Intake Total 706 ml 2545 ml 2001 ml 1584 ml Output Total 50 ml 560 ml 175 ml 300 ml 90 ml Balance 656 ml 1985 ml 1826 ml -300 ml 1494 ml Intake Oral 0 ml IV Total 419 ml 1609 ml 1410 ml 972 ml Tube Feeding 287 ml 586 ml 481 ml 402 ml Other 350 ml 110 ml 210 ml Output Urine Total 50 ml 60 ml 75 ml 40 ml Stool Total 500 ml 100 ml 50 ml Gastric Drainage Total 0 ml 0 ml Hemodialysis 300 ml Result Diagram: 01/19/17 0500 01/19/17 0500 Objective Remarks GENERAL: This is an obese, elderly man who is intubated, sedated, assisting the ventilator. HEENT: Head is normocephalic. Pupils are reactive. NECK: Supple with no venous distention. Trachea is midline. CHEST: Decreased breath sounds with crackles at both lung bases.Occ wheeze HEART: The heart sounds are irregular S1-S2. No murmur. ABDOMEN: Soft. Obese without masses. No organomegaly. EXTREMITIES: 1 + edema. Decreased peripheral pulses. Reflexes are not elicited. The patient is sedated. SKIN: Dry and cool. Assessment and Plan Assessment and Plan IMPRESSION 1. Hypoxic respiratory failure. 2. Left lower lobe atelectasis and possible pneumonia with aspiration. 3. Left pleural effusion resolved. 4. Cardiomyopathy and congestive heart failure. 5. Obstructive sleep apnea. 6. Diabetes mellitus. 7. Atrial fibrillation. 8. Nasopharyngeal bleed Plan : 1. Wean FIO2 to keep sat >90. 2. Wean PEEP to 8 CM, FIO2 to 40 % 3. Antibiotics per ID. 4. CBC CXR ,BMP in am. 5. Nebs qid , duoneb. 6. Lavage and suction trach 7. Tube feeds at 50 CC 8. Solumedrol 40 mg IV q12h Julius Burch MD January 19, 2017 19:43
[2017-01-19] MEDS: fentaNYL DRIP 250 ML IV SCH (20:24)
[2017-01-19] MEDS ORDERED: MISCELLANEOUS PHARMACY INFORMATION XX ONE (21:45)
[2017-01-19 23:53] LABS: UFH SEROTONIN RELEASE RESULT NEGATIVE (NEGATIVE)
[2017-01-20] VITALS (15 sets, daily range): BP systolic 89–159; BP diastolic 44–77; PULSE 54–103; RESP 16–17; TEMP 97.5–98.3; O2SAT 93–100
[2017-01-20] MEDS: metroNIDAZOLE 500 MG TAB PO SCH ×3 (00:07→17:23)
[2017-01-20] MEDS: INSULIN ASPART SUPPLEMENTAL SCALE SQ SCH ×4 (00:07→18:00)
[2017-01-20] MEDS: ARGATROBAN INJ 250 MG in SODIUM CHLOR 0.9% 250 ML INJ 250 ML IV SCH (00:39)
[2017-01-20] MEDS ORDERED: EPOPROSTENOL NEB SOLUTION 30 NG/KG/MIN 100 ML NEB SCH ×2 (02:00)
[2017-01-20] MEDS: RESP: SODIUM CHLORIDE 3% 4 ML NEB NEB SCH ×4 (03:46→20:53)
[2017-01-20] MEDS: RESP: IPRATROPIUM 0.5 MG/2.5 ML NEB NEB SCH ×4 (03:46→20:53)
[2017-01-20] MEDS: RESP: LEVALBUTEROL HYDROCHLORIDE 0.63 MG/3 ML NEB (SCH) NEB ×4 (03:46→20:53)
[2017-01-20] MEDS: CHLORHEXIDINE GLUCONATE 2 % 1 PACK (2 CLOTHS) TOP SCH (04:00)
[2017-01-20] MEDS: PROPOFOL 1000 MG/100 ML IV SCH ×3 (04:03→16:10)
[2017-01-20 04:11] LABS: BASOPHIL % 0.2 % (0.0-2.0); HEMATOCRIT 32.7 % (39.0-51.0); LYMPH % 1.1 % (9.0-44.0); LYMPHOCYTE # 0.3 TH/MM3 (1.0-4.8); MEAN CELL VOLUME 89.9 FL (80.0-100.0); MEAN CORPUSCULAR HGB CONC 32.2 % (32.0-36.0); MONO % 3.3 % (0.0-8.0); NEUT % 95.4 % (16.0-70.0); PLATELET COUNT 99 TH/MM3 (150-450); RED BLOOD COUNT 3.64 MIL/MM3 (4.50-5.90); RED CELL DISTRIBUTION WIDTH 17.5 % (11.6-17.2); WHITE BLOOD COUNT 25.2 TH/MM3 (4.0-11.0)
[2017-01-20] MEDS: CISATRACURIUM INJ 100 MG in SODIUM CHLOR 0.9% 250 ML INJ 240 ML IV SCH ×3 (04:14→16:09)
[2017-01-20 04:15] LABS: HEMO FLAGS AUTO DIFF
[2017-01-20 04:24] LABS: REVIEW FLAG FINAL
[2017-01-20 04:27] LABS: APTT (PATIENT) 63.7 SEC (24.3-30.1)
[2017-01-20 04:41] LABS: BICARBONATE 24.1 MEQ/L (21.0-32.0); MAGNESIUM 2.6 MG/DL (1.5-2.5); POTASSIUM 5.3 MEQ/L (3.5-5.1)
[2017-01-20] MEDS: ARTIFICIAL TEARS OPTH SOLN 15 ML BTL EACH EYE SCH ×3 (06:33→21:09)
[2017-01-20] MEDS: METOCLOPRAMIDE HCL 10 MG/2 ML VIAL IV PUSH SCH ×3 (06:35→21:09)
--- NOTE | 2017-01-20 06:56 | MB ---
cc: PAUL DING M.D. DATE OF CONSULTATION: 01/19/2017 DATE OF : 1945 REFERRING PHYSICIAN: Dr. Aquino. CHIEF COMPLAINT Dr. Aquino requested consultation for Mr. 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 HISTORY OF PRESENT ILLNESS: Mr. Palmer is a 71 year-old male with history of obesity and hypertension. He presented to [facility] with atrial fibrillation, rapid ventricular response. He had severe systolic dysfunction with ejection fraction of 10/15%. Cardiac catheterization showed left circumflex 90%. Attempted synchronized cardioversion was unsuccessful. He was transferred to [facility] for cardiac fibrillation with Dr. Jimenez on January 05. His hospital course has been outlined by critical care medicine who has been managing the patient. He had decompensated and required emergent intubation and ventilator management. Transesophageal echocardiogram shows left atrial appendage clot. He has been placed on vasoactive medications, central line placement. His heart rate is trying to be controlled. Multiple consultants are assisting in the management. Pulmonary is consulted for his hypoxic respiratory failure. His left lower lobe atelectasis and possible pneumonia from aspiration. Nephrology is consulted for acute renal failure. He had underlying Stage IV chronic kidney disease. Infectious disease, continued to cover him with cefepime and Flagyl. His course is further complicated by bleeding, hematoma from a central line placement in the right neck. He had epistaxis requiring nasal plugs. The etiology of bleeding was also associated with some oropharyngeal or hypopharyngeal laceration during the intubation. Nasal balloons are in place for three to five days, it is pending to be removed. There is no active oozing from the area. He is noted to have had a normal hemoglobin on admission, he has gradually trended down. Over the last three days his hemoglobin is between 11 and 10. Noted his platelet count on admission was 237, it was trending down a day after admission, platelet count was 193,000 on 01/13/2017, it is 180,000 on 01/14/2017, there is a question of a bleed on 01/15 his platelet count decreased significantly to 96,000. He had remained low despite stopping the bleeding, platelet count was 73,000 at time of consultation with hematology. Laboratory evaluation from 01/15 shows heparin-induced thrombocytopenia antibodies which were weakly positive. Serotonin release assay were pending. HIPA patient optical density is positive. Anticoagulant therapy was withheld because of the concern for bleeding. However, at the time of the consultation. There is no overt bleeding. The right neck hematoma appears to have regressed from the initial marker. His hematoma appears to be tracking down to his neck area. The hematoma is soft. His platelet count continues to trend down suggesting that direct thrombin inhibitor is necessary. Also anticoagulant therapy is needed because of his current atrial fibrillation and the appendage clot. PAST MEDICAL HISTORY: 1. Obesity 2. Hypertension 3. Atrial fibrillation 4. Rapid ventricular response 5. Respiratory failure 6. Anemia. 7. Heparin-induced thrombocytopenia. PAST SURGICAL HISTORY 1. Cardiac catheterization 2. Cardioversion FAMILY HISTORY Unable to obtain. SOCIAL HISTORY: History of smoking. e quit 40 years ago. Social alcohol use. No illicit drug use. He lives with his , recently retired previously lives in [place]. PHYSICAL EXAMINATION VITAL SIGNS: Temperature 97.5 heart rate 117, respiratory 16, blood pressure 111/66, saturation 95% IN GENERAL: Mr. Palmer is a well-developed obese man. He is intubated and sedated. He is on a rotating bed. He has great deal of edema. His eyes are shut, oropharynx is dry. Nasal balloon is in place with dry clot. LUNGS: The lungs are clear anteriorly with good air entry. CARDIOVASCULAR SYSTEM: Exam reveals a rapid irregular rhythm. ABDOMEN: The abdomen is distended with some ecchymotic area at previous injection site. EXTREMITIES: Lower extremity with 1+ edema. Good pulses. LABORATORY FINDINGS: Labs as described above; hemoglobin of 10, platelet count 73,000, BUN of 155, creatinine 1.573, magnesium of 2.9. Liver functions are normal. ASSESSMENT/PLAN Mr. Palmer is a 71-year-old man with history of obesity, hypertension presents with the atrial fibrillation and rapid ventricular response who did not respond to cardioversion. He has not had an opportunity to have ablation by Dr. Jimenez. His course is completed by respiratory failure and continued atrial fibrillation described above. Hematology/Oncology is consulted for the thrombocytopenia associated with the heparin-induced thrombocytopenia antibody. Serotonin release assay is pending. Platelet count continues to decrease. In light of this fact that he has no acute bleeding at present the right neck hematoma appears to be stable I recommend ice to the right neck hematoma and initiate argatroban as a direct thrombin inhibitor prophylaxis. He has a known clot in the atrial appendage. Clinically it is difficult to discern the venous thromboembolic event. He is certainly at increased risk. Anticoagulant therapy is needed as well for his atrial fibrillation. He has renal insufficiency and renal failure. He has good liver function. His bilirubin and liver function are normal. This should be no contraindication to argatroban. The case was discussed with his nurse. We will monitor closely for bleeding. Platelet count will be repeated in the morning. MD ORAL Draper/ /10:34 PM /6:30 AM
--- NOTE | 2017-01-20 07:38 | HHI.CCPN ---
Subjective Remarks/Hospital Course This is a 71-year-old gentleman that presented to [facility] secondary to dyspnea and atrial fibrillation with RVR. The patient has a medical history significant for obesity and hypertension. During his hospitalization at [facility], the patient underwent an echocardiogram which showed severe systolic dysfunction with an ejection fraction of 1015 % the patient then underwent a cardiac catheterization showing significance with left circumflex 90%. The patient underwent multiple attempts of unsuccessful synchronized cardioversion. The patient also underwent medical management with beta blockers, and calcium channel blockers that were also unsuccessful. The patient was transferred to [facility] for cardiac ablation with Dr. Jimenez. The patient was scheduled for cardiac ablation, the procedure was canceled. The patient required emergent intubation and required ventilator management a VLADIMIR was performed showing a clot in the left atrial appendage. The patient was placed on IV Cardizem, and an amiodarone infusion. Critical Care medicine was consulted for management. 01/06: Tmax 97.4. The patient remained on elevated vent settings with FiO2 of 1.0 overnight, PEEP requirements were increased to 8, to maintain a PaO2 of greater than [address] scan of the chest was obtained which noted bilateral effusions small, basilar consolidations right worse than the left, and a loculated area representing a possible pneumonia process, empyema, as well as aspiration or just loculated fluid as well as a small pericardial effusion. The patient continues on Cardizem and amiodarone infusions with a heart rate overnight 80s -115. The patient's vasopressor requirements of phenylephrine diminished to 20 mcgs. 01/07: Tmax 99.2. Yesterday the central line was placed for vasoactive medications and CVP monitoring, small hematoma noted near the right IJ area soft no compression of major vessels, with resolution of bleeding in that area. Phenylephrine was discontinued yesterday. The patient heart rate remains today [id number]. Cardizem infusion has been discontinued in the setting of EF of 10-15%. Esmolol infusion to be initiated this a.m.. Coumadin was initiated last night now placed on hold due to patient bleeding from nasopharynx and oropharynx. INR currently 1.2. Plan for CT thorax tomorrow, with possible IR intervention versus CVT consultation for possible empyema the patient will remain on heparin infusion, and transition onto Coumadin after any potential procedures to be initiated. Chest x-ray slightly improved FiO2 decreasing now 70%. Sedation vacation yesterday revealed GCS 11 T, patient alert responsive following commands. With initiation of antibiotics, leukocytosis resolved. ID consulted Dr. Gage. Blood cultures are pending. 01/08: Patient's heart rate 110-[address] scan of the chest imaging revealed fluid. Plan for thoracentesis and and studies of pleural fluid , this afternoon. The patient remains on amiodarone and heparin infusions, per cardiology. Heparin held, for thoracentesis this afternoon, and then will be resumed. The patient was maintained on CPAP trial for approximately one hour yesterday. During sedation vacation patient was alert following commands recognizing family. Plan to resume CPAP trials this afternoon post thoracentesis. 01/09: The patient underwent CT-guided thoracentesis yesterday , on the right side noted 400 cc of fluid was removed , with specimens ordered to be sent for evaluation .This morning chest x-ray performed showing almost complete opacification of the left lung. FiO2 requirements increase patient on FiO2 of 80%, O2 sat 94%. Left chest ultrasound obtained revealing no fluid. Consent obtained BAL performed, revealing emanating from the nearest previously ( patient was noted to have epistaxis with initiation of heparin on 01/06). Blood clots noted in left lung upon visualization with bronchoscopy, saline lavage applied, minimal blood clots removed. The patient was initiated on Mucomyst 10% , and pulmonology was consulted. Dr. Tasia Lama following. The patient shows no signs or evidence of bleeding actively, plan to consult ENT if signs of active bleeding become evident. Hemoglobin remains stable.The patient converted into sinus rhythm is today afternoon. Cardiology management of medications, IV amiodarone discontinued this afternoon. 01/10: Tmax 99.0. Chest x-ray shows slight improvement of left lung today. Plan for repeat bronchoscopy per Dr. Burch this a.m, and the patient continues on Mucomyst. The patient's cardiac rhythm reverted to A. fib last evening, amiodarone IV infusion reinstituted per Dr. Jimenez. 01/11: TMax 100.0. Much improved chest x-ray this morning. The patient continues in A. fib with a rate of 120, he continues on amiodarone, heparin infusion per cardiology. No evidence of active bleeding. 5/12 Patient Remains sedated with Diprivan, intubated. T:99.9. On Neosyn 15 mics , heparin and Amio drips. In Afib with RRV. Patient s/p repeat bronch with BAL yesterday by Dr. Burch and ETT replacement by Dr. Sanchez. On PC/AC with PEEP:14 , FIO2 100%. 01/13: TMax 100.2. Last night the nurse reported that the patient had a small amount of epistaxis, and blood in the oropharynx noted. The area continued to bleed during the night. ENT has been consulted. Heparin has been placed on hold , ASA has been discontinued in the setting of acute renal failure. The patient continues on amiodarone infusion , heart rate 120's. Neosynephrine has been discontinued, and Levophed instituted. Creatinine noted to be 4.5. As per report , states patient does not want dialysis. The patient continues on elevated PEEP of 14. 5/14: Heparin was discontinued yesterday in the setting of continued bleeding in the nasal/ oropharyngeal region. ENT was consulted and nasal packing was applied. During the night the patient still had small noted amount of bleeding from the oropharyngeal area plan today for oropharyngeal packing. Hgb 9, will transfuse .The patient was placed on norepinephrine for currently at 1-2 mcgs per minute. PEEP has been decreased to 12, with adequate oxygenation a PaO2 of 71. 5/15: Tmax 99.0. The patient continues to be anemic and thrombocytopenic, contributory factors being uremia. The patient's /family decided to pursue hemodialysis at this point. The patient received 1 unit of packed red blood cells yesterday. The patient was initiated on dialysis yesterday afternoon, with approximately 3 L removed. Nasal gauze packing removed and placement of nasal balloons by ENT yesterday. Oral gauze packing to be removed today. The patient received 2 separate doses of digoxin, A. fib heart rate ranging 80- < 120. The patient continues to have high ventilatory requirements, FiO2 was increased throughout the night to currently 80%, to maintain O2 sat greater than 92%. 01/16: FiO2 at 85%. Large clots removed from oropharynx overnight. Transfused 2 units PRBCs yesterday. No bowel movement. Tolerating tube feeds at 40 cc now with Nepro 01/17: Maximum 100.6. CURRENT TEMPERATURE 98.1. Central line pulled out yesterday. Flolan initiated yesterday and FiO2 down to 65%. Tolerating tube feeds. No bowel movement. Arousable weakly follow commands yesterday 01/18: Tmax 99.8. Currently afebrile. Initially, hemoptysis with desaturation requiring bronchoscopy. See bronchoscopy note. Roto-Rest bed ordered. FiO2 from 100-70% currently. On Nimbex drip. No BM. Tolerating tube feeds. 01/19: Afebrile. FiO2 down to 40%. We will attempt a wean Flolan today. On Nimbex drip. Positive BM yesterday. Tolerating tube feeds. Subjective: 01/20: FiO2 back to 100%. Flolan "fell off "overnight. Ventilator adjusted back to 100%. Flolan reinstituted. Chest x-ray and ABG pending. Tolerating tube feeds. Positive BM. Afebrile. Objective Vital Signs Date Time Temp Pulse Resp B/P Pulse Ox O2 Delivery O2 Flow Rate FiO2 01/20/17 04:35 95 75 01/20/17 04:00 74 01/20/17 04:00 Mechanical Ventilator 01/19/17 20:00 97.7 17 124/67 Intake and Output 01/19/17 01/19/17 01/20/17 08:00 16:00 00:00 Intake Total 2001 ml 1584 ml Output Total 175 ml 300 ml 90 ml Balance 1826 ml -300 ml 1494 ml Result Diagram: 01/20/17 0350 01/20/17 0350 Imaging Last Impressions Chest X-Ray 01/19/17 0600 Signed Impressions: Service Date/Time: Thursday, January 19, 2017 04:38 - CONCLUSION: 1. Support apparatus unchanged. Relatively stable bilateral airspace disease. Osmany Javed MD Abdomen X-Ray 01/18/17 0000 Signed Impressions: Service Date/Time: January 07:52 - CONCLUSION: 1. No evidence of obstruction. Manuel Petersen MD Renal Ultrasound 01/09/17 0000 Signed Impressions: Service Date/Time: Monday, January 09, 2017 13:56 - CONCLUSION: 1. Right kidney is sonographically normal. 2. Benign-appearing 2.4 x 1.5 cm cortical cyst in the midpole of the left kidney. 3. Subcentimeter echogenic, non-shadowing foci in the midpole of the left kidney would be unusual for stones and may represent ectopic hilar fat. No hydronephrosis. 4. Urinary bladder is decompressed with a Alanis catheter. Douglas Ward MD Chest Ultrasound 01/09/17 0000 Signed Impressions: Service Date/Time: Monday, January 09, 2017 08:18 - CONCLUSION: No left-sided pleural effusion. The abnormality in the left chest on chest radiograph is likely related to mucous plugging. When patient had a CT scan yesterday the left lung was well aerated. Edgardo Mayorga MD Chest CT 01/08/17 0600 Signed Impressions: Service Date/Time: Sunday, January 08, 2017 08:46 - CONCLUSION: Massive cardiomegaly with panchamber enlargement extensive coronary calcifications. Stable trace pericardial effusion. Increasing bibasilar consolidative changes with minimal bilateral pleural effusions.. Rhys Fritz MD FACR Thoracentesis 01/08/17 0000 Signed Impressions: Service Date/Time: Sunday, January 08, 2017 16:08 - CONCLUSION: Uncomplicated CT-guided thoracentesis on the right. The left sided thoracentesis was not performed as there was no significant left pleural fluid. The abnormality on most recent chest x-ray was secondary to mucous plugging and left sided atelectasis. Edgardo Mayorga MD Objective Remarks GENERAL: 71-year-old male, critically ill-appearing appropriately stated age, obese male resting in rotarest bed SKIN: Warm and dry. No rash HEAD: Atraumatic. Normocephalic. EYES: Pupils equal and round, 3mm and reactive. No scleral icterus. No injection or drainage. ENT: Bilateral Rhino Rocket . Old clots and or NECK: Trachea midline. Unable to assess JVD secondary to body habitus. Large right-sided neck hematoma without midline shift. Left subclavian and IJ Vas- Cath are both clean dry and intact CARDIOVASCULAR: IRR. S1, S2 no S4 without murmur RESPIRATORY: Diminished breath sounds throughout. Few crackles in bases bilaterally. Breath sounds equal bilaterally. High vent requirements GASTROINTESTINAL: Abdomen soft, obese non-tender, nondistended. I Magana bowel sounds MUSCULOSKELETAL: Extremities with 1+ peripheral edema. No obvious deformities. Posterior tibialis is palpable bilaterally. Right femoral Vas-Cath is clean dry and intact NEUROLOGICAL: Intubated and sedated. Follows commands moving extremities 4, when off sedation documented last Sunday. Urinary Catheter: Yes Assessment to: Continue Alanis insert reason: Prolonged Immobilization Date of Insertion: January 05, 2017 Vascular Central Line Catheter: Yes Assessment to: Continue Date of Insertion: January 17, 2017 Line: Central Venous Catheter Side: Left Location: Subclavian, Jugular A/P Assessment and Plan Neuro/Psych: Epistaxis Propofol at 25 mcg/kg/m and fentanyl drip at 100 an hour for sedation to maintain ventilator synchrony/paralysis Nimbex drip at 2.0 Maintain [id number] 2 out of 4/BIS 40-60 Goal of RASS -5 01/07 No active signs of bleeding. Epistaxis resolved 01/12 New onset epistaxis, heparin discontinued Epistaxis-ENT consulted-nasal balloons in situ maintain balloons until 01/20 per ENT recommendation, oropharyngeal packing was removed by ENT 01/15 ENT following - Dr. Byrd. Plan to remove Rhino Rocket today 01/20 Respiratory: Acute hypoxic respiratory failure Left lung consolidation 2/2 previous event of epistaxis, clotted blood left lung -resolved SONU Probable aspiration Possible multilobar [id number] Bilateral pleural effusions Continue with vent support keep sat >92% On PC/AC RR 16, IP:12, IT:1.65, PEEP;12, FIO2 100, decrease FIO2 as tolerated, Flolan currently 50 ng/kg per minute. Continue CXR 01/19-no change in bibasilar infiltrates Currently on Xopenex and Atrovent aerosols every 6 hours ICU vent bundle. Pulmonology following- Dr. Burch 01/05 CT chest-pericardial effusion small, bilateral effusions, basilar consolidation and right greater than left Solu-Medrol 40 mg IV Q8hr 01/08-right CT-guided thoracentesis-400 cc removed, sent for cytology and cultures s/p bronch . by- Dr. Burch for blood clots left lung Status post bronch 01/17 by director of home care hospice - bloody mucous plug at saturnino/mainstem section cleared. No obvious source of bleeding. CV: A. fib with RVR Left atrial appendage thrombus Cardiomyopathy Acute Systolic CHF Hypertension Dyslipidemia Currently off all vasopressors Currently on Amiodarone 200 mg twice a day 01/13- Heparin, ASA discontinued due to epistaxis 01/05 VLADIMIR( [employer])-left atrial thrombus EF 15-20%. Systolic function reduced. Diffuse hyperkinesis. 12/26 [facility] severe systolic dysfunction EF 1015%, mitral valve mild to moderate regurg, LAE, tricuspid Valve-mild to moderate regurg, small pericardial effusion, 12/19 cardiac cath left circumflex 90% occlusion Management per Cardiology -Dr. Jimenez 01/15 started on Coreg 6.25 mill grams by mouth twice a day. We'll restart at 3.125 mg twice a day norepinephrine At home on Coreg 25 mg twice a day, aspirin 81 mg daily, hydralazine 25 mg twice a day and HCTZ25 mg by mouth daily Renal: Acute on chronic kidney disease stage IV Nephrology following-Dr. Hahn Monitor renal function, I/O's, avoid nephrotoxins. Will need hemodialysis today Patient and family declined dialysis 01/12 Vascath placement Hemodialysis initiated 01/14.. Hemodialysis yesterday 01/19 FEN/GI: Morbid obesity Hyperkalemia Hyperphosphatemia Tube feeds Nepro @50 cc, no residuals noted Prevacid for GI prophylaxis Bowel Colace/Senokot twice a day. 100 cc stool overnight. Fecal containment device placed PhosLo 667 3 times a day initiated Heme: Leukocytosis Normocytic anemia Thrombocytopenia Monitor CBC.Hgb currently stable around 10 Transfuse 3 units PRBCs and submission Will transfuse for platelet count less than 50,000 Weakly positive HIT panel-CLIFFORD is negative. - Started on Argetroban/DTI per hematology. Placed on hold to remove Vas-Cath and nasal packing today ID: Likely aspiration pneumonia 01/06 urine, sputum, blood cultures-NGTD 01/06-Legionella urine antigen negative 01/09 - bronchoscopy - yeast/ID to follow 01/12 - blood cultures 2 - no growth Antibiotics per ID ( Cefepime/Flagyl) -Dr. Gage following, will continue with nasal packing -Monitor for signs of infections ( Fever, WBC) Recheck blood cultures and sputum today 01/20 with increased WBC. Will remove left IJ Vas-Cath Endocrine: Close monitoring per ICU protocol-medium dose regimen -- SSI Accu-Cheks every 6 hours for glycemic control Prophylaxis: GI Prophylaxis Prevacid 30 mg at night DVT Prophylaxis -- SCDs, currently on DTI Heparin discontinued 01/13 Lines: Peripheral IV's. 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 Time to perform other separately billable procedures was not included in the critical care time. Koby Cagle MD January 20, 2017 07:38
[2017-01-20] MEDS ORDERED: PHENYLEPHRINE INJ 160 MG in DEXTROSE 5% IN WATE 500 ML INJ 484 ML IV SCH ×2 (08:00)
[2017-01-20] MEDS ORDERED: TERBUTALINE INJ 1 MG/ML AMP SQ PRN ×2 (08:00)
[2017-01-20] MEDS ORDERED: NOREPINEPHRINE INJ 4 MG in SODIUM CHLOR 0.9% 250 ML INJ 246 ML IV SCH (08:00)
[2017-01-20] MEDS: CHLORHEXIDINE 0.12% (ORAL KIT) 15 ML CUP MT SCH ×2 (08:48→21:08)
--- NOTE | 2017-01-20 08:58 | RADRPT ---
EXAM DATE/TIME: 01/20/2017 07:48 [facility] COMPARISON: CHEST SINGLE AP, January 19, 2017, 4:38. INDICATIONS : Shortness of breath MEDICAL HISTORY : Hypertension. SURGICAL HISTORY : Coronary artery stent. ENCOUNTER: Subsequent ACUITY: 2 weeks PAIN SCORE: Non-responsive. LOCATION: Bilateral chest FINDINGS: Single AP view of the chest. Endotracheal tube, nasogastric tube, left subclavian central venous cath eter, and left IJ central venous catheter remain in place. No change in bilateral pulmonary parenchym al opacity. No evidence of pneumothorax. CONCLUSION: No significant interval change with persistent asymmetric bilateral pulmonary parenchymal opacity. Geovanny Lynch MD on January 20, 2017 at 8:56 Board Certified Radiologist. This report was verified electronically.
[2017-01-20] MEDS: SODIUM CHLORIDE 0.9% FLUSH 10 ML FLUSH IVF SCH (09:00)
--- NOTE | 2017-01-20 09:10 | PD.ONC.PN ---
Subjective Subjective Remarks Afebrile overnight. Patient intubated, sedated. Per nursing staff, argatroban on hold for removal of vas-cath and rhino rockets today. Objective Data Date Time Temp Pulse Resp B/P Pulse Ox O2 Delivery O2 Flow Rate FiO2 01/20/17 08:11 94 100 01/20/17 04:35 95 75 01/20/17 04:00 97.6 77 16 93 159/75 01/20/17 04:00 74 01/20/17 04:00 94 Mechanical Ventilator 80 01/20/17 04:00 80 01/20/17 03:41 93 80 01/20/17 03:00 99 01/20/17 00:00 97.5 93 17 98 132/63 01/19/17 23:59 98 Mechanical Ventilator 80 01/19/17 23:59 80 01/19/17 23:50 100 80 01/19/17 23:35 99 01/19/17 21:45 95 01/19/17 21:45 99 Mechanical Ventilator 95 01/19/17 20:50 91 95 01/19/17 20:00 100 01/19/17 20:00 86 Mechanical Ventilator 100 01/19/17 20:00 97.7 106 17 86 124/67 01/19/17 19:40 108 01/19/17 16:10 97 40 01/19/17 15:00 117 01/19/17 15:00 97.5 117 16 95 111/66 01/19/17 15:00 95 Mechanical Ventilator 40 01/19/17 15:00 40 01/19/17 14:31 98 40 01/19/17 12:00 98 100 01/19/17 11:00 97.7 92 16 95 134/62 01/19/17 11:00 40 01/19/17 11:00 89 01/19/17 11:00 95 Mechanical Ventilator 40 01/19/17 09:15 95 40 01/20/17 01/20/17 01/20/17 07:00 15:00 23:00 Intake Total 1661 ml Output Total 65 ml Balance 1596 ml Result Diagram: 01/20/17 0350 01/20/17 0350 Laboratory Results Laboratory Tests Test 01/19/17 01/20/17 21:15 03:50 Potassium Level 4.8 MEQ/L 5.3 MEQ/L White Blood Count 25.2 TH/MM3 Red Blood Count 3.64 MIL/MM3 Hemoglobin 10.5 GM/DL Hematocrit 32.7 % Mean Corpuscular Volume 89.9 FL Mean Corpuscular Hemoglobin 29.0 PG Mean Corpuscular Hemoglobin 32.2 % Concent Red Cell Distribution Width 17.5 % Platelet Count 99 TH/MM3 Mean Platelet Volume 11.7 FL Neutrophils (%) (Auto) 95.4 % Lymphocytes (%) (Auto) 1.1 % Monocytes (%) (Auto) 3.3 % Eosinophils (%) (Auto) 0.0 % Basophils (%) (Auto) 0.2 % Neutrophils # (Auto) 24.0 TH/MM3 Lymphocytes # (Auto) 0.3 TH/MM3 Monocytes # (Auto) 0.8 TH/MM3 Eosinophils # (Auto) 0.0 TH/MM3 Basophils # (Auto) 0.0 TH/MM3 CBC Comment AUTO DIFF Reticulocyte Count 2.0 % Absolute Reticulocyte Count 74.7 MIL/L Activated Partial 63.7 SEC Thromboplast Time Sodium Level 135 MEQ/L Chloride Level 95 MEQ/L Carbon Dioxide Level 24.1 MEQ/L Anion Gap 16 MEQ/L Blood Urea Nitrogen 120 MG/DL Creatinine 4.48 MG/DL Estimat Glomerular Filtration 13 ML/MIN Rate Random Glucose 129 MG/DL Calcium Level 7.8 MG/DL Phosphorus Level 10.4 MG/DL Magnesium Level 2.6 MG/DL Administered Medications Medications (Trade) Dose Ordered Sig/Claire Route PRN Reason Start Time Stop Time Status Last Admin Dose Admin Propofol (Diprivan 1000 Mg/100ml Inj) 100 ml @ 0 mls/hr TITRATE IV 01/05/17 21:45 01/20/17 04:03 Docusate Sodium 100 mg 100 mg Q12HR PO 01/06/17 21:00 01/18/17 09:00 Cefepime HCl/ Sodium Chloride (Maxipime Inj/NS Inj) 100 ml @ 200 mls/hr Q24H IV 01/06/17 12:00 01/19/17 13:12 Sodium Chloride (NS Flush) 2 ml UNSCH PRN IV FLUSH FLUSH AFTER USING IV ACCESS 01/06/17 13:15 01/12/17 02:25 Sodium Chloride (NS Flush) 2 ml BID IV FLUSH 01/06/17 21:00 01/19/17 22:11 Chlorhexidine Gluconate (Chlorhexidine 2% Cloth) Taper DAILY@04 TOP 01/07/17 04:00 01/03/18 03:59 01/18/17 02:47 Insulin Aspart (NovoLOG SUPPLEMENTAL SCALE) 1 Q6HR SQ 01/10/17 06:00 01/20/17 00:07 Bisacodyl (Dulcolax Supp) 10 mg DAILY PRN RECTAL CONSTIPATION 01/10/17 09:15 Hold 01/10/17 09:56 Metronidazole (Flagyl) 500 mg Q8H PO 01/16/17 09:00 01/20/17 00:07 Sennosides (Senna Liq) 8.8 mg BID PO 01/16/17 09:00 01/18/17 09:00 Glycerin (Glycerin Adult Supp) 2 gm BID PRN RECTAL CONSTIPATION 01/17/17 06:45 01/17/17 14:30 Amiodarone HCl (Cordarone) 200 mg Q12HR PO 01/17/17 09:00 01/19/17 20:33 Sodium Chloride DAILY IVF 01/17/17 12:30 01/19/17 08:22 Cisatracurium Besylate/Sodium Chloride (Nimbex Inj/NS 250 ml Inj) 250 ml @ 0 mls/hr TITRATE IV 01/17/17 14:30 01/20/17 04:14 Artificial Tears (Tears Naturale Opth Soln) 1 drop Q8HR EACH EYE 01/17/17 22:00 01/20/17 06:33 Chlorhexidine Gluconate 15 ml 15 ml BID@08,20 MT 01/17/17 20:00 01/20/17 08:48 Fentanyl Citrate (fentaNYL DRIP) 250 ml @ 0 mls/hr TITRATE IV 01/17/17 16:45 01/19/17 20:24 Metoclopramide HCl (Reglan Inj) 5 mg Q8HR IV PUSH 01/18/17 06:45 01/20/17 06:35 Calcium Acetate (Phoslo) 667 mg TID PO 01/19/17 09:00 01/19/17 20:29 Lansoprazole (Prevacid Odt) 30 mg DAILY NG 01/19/17 09:00 01/19/17 08:22 Albumin Human (Albumin 25% Inj) 25 gm UNSCH PRN IV WITH DIALYSIS 01/19/17 08:15 01/19/17 15:17 Gentamicin Sulfate (Gentamicin (Dialysis) Inj) 20 mg UNSCH PRN IV WITH DIALYSIS 01/19/17 08:15 01/19/17 09:15 Epoetin Rizwan 4000 units 4,000 units UNSCH PRN IV WITH DIALYSIS 01/19/17 08:15 01/19/17 15:10 Argatroban/Sodium Chloride (Novastan Inj/NS 250 ml Inj) 252.5 ml @ 0 mls/hr TITRATE IV 01/19/17 23:45 01/20/17 00:39 Objective Remarks GENERAL: Intubated, sedated male lying supine on rotating bed. SKIN: Warm and dry. HEAD: Normocephalic. EYES: No injection or drainage. NECK: Supple, trachea midline. CARDIOVASCULAR: IRR RESPIRATORY: anterior guardado with occasional rhonchi. on mechanical ventilation GASTROINTESTINAL: Abdomen soft, non-tender, nondistended. 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 --hematoma from central line placement in the right neck --epistaxis requiring nasal plugs Plan 1. CLIFFORD negative. Would continue Argatroban until current bag complete, then patient can be switched back to heparin 2. monitor CBC Attending Statement The exam, history, and the medical decision-making described in the above note were completed with the assistance of the mid-level provider. I reviewed and agree with the findings presented. I attest that I had a [id number] encounter with the patient on the same day, and personally performed and documented my assessment and findings in the medical record. Events this morning noted. Central line removed, Argatroban on hold. R neck hematoma not worse, ecchmosis tracking. Noted decrease in hgb but no over bleeding. Nasal bulb removed, no bleeding. Pt converted to sinus rhythm however anticoagulation need to continue for atrial appendage clot. Plan to use current bag of Argatroban, noted hold for central line removal. HIT negative, ok to use UFH. Monitor platelet count. Priya Fraga January 20, 2017 09:10 Meghan Torres MD January 20, 2017 15:27
[2017-01-20] MEDS: methylPREDNISolone SOD SUCC 40 MG/1 ML VIAL IV PUSH SCH ×2 (09:14→21:09)
[2017-01-20] MEDS: SODIUM CHLORIDE 0.9% FLUSH 10 ML FLUSH IV FLUSH SCH ×2 (09:15→21:08)
[2017-01-20] MEDS: LANSOPRAZOLE SOLUTAB 30 MG TAB NG SCH (09:15)
[2017-01-20] MEDS: AMIODARONE 200 MG TAB PO SCH ×2 (09:15→21:09)
[2017-01-20] MEDS: CALCIUM ACETATE 667 MG CAP PO SCH ×3 (09:15→17:54)
[2017-01-20] MEDS: SENNOSIDES SYRUP 8.8 MG/5 ML CUP PO SCH ×2 (09:17→21:08)
[2017-01-20] MEDS: DOCUSATE SODIUM 100 MG/10 ML UDC PO SCH ×2 (09:17→21:08)
[2017-01-20 09:30] LABS: BANDS 10 % (0-6); CORRECTED NUCLEATED RBC 2 /100 WBC (0-0); NEUTROPHIL # MANUAL DIFF 22.7 TH/MM3 (1.8-7.7); OVALOCYTES 1+ (NORMAL); POLYS (SEG NEUTROPHILS) 80 % (16-70); WBC DIFF SAMPLE 100
[2017-01-20 09:31] LABS: PLATELET ESTIMATE SMEAR LOW (NORMAL); PLATELET MORPHOLOGY NORMAL (NORMAL); SCAN/DIFF FINAL DIFF MANUAL
[2017-01-20] MEDS ORDERED: EPOPROSTENOL NEB SOLUTION 20 NG/KG/MIN 100 ML NEB SCH ×2 (10:00)
[2017-01-20] MEDS ORDERED: EPOPROSTENOL NEB SOLUTION 50 NG/KG/MIN 100 ML NEB SCH ×4 (10:00→11:00)
[2017-01-20 10:16] LABS: HEMATOCRIT 27.6 % (39.0-51.0); MEAN CELL VOLUME 89.6 FL (80.0-100.0); MEAN CORPUSCULAR HEMOGLOBIN 28.9 PG (27.0-34.0); MEAN CORPUSCULAR HGB CONC 32.3 % (32.0-36.0); PLATELET COUNT 67 TH/MM3 (150-450); RED BLOOD COUNT 3.09 MIL/MM3 (4.50-5.90); RED CELL DISTRIBUTION WIDTH 16.4 % (11.6-17.2); WHITE BLOOD COUNT 14.7 TH/MM3 (4.0-11.0)
[2017-01-20 10:23] LABS: REVIEW FLAG FINAL
[2017-01-20 10:27] LABS: BLOOD GAS BASE EXCESS -6.8 mmol/L (-2-2); BLOOD GAS CARBOXYHEMOGLOBIN 1.3 % (0-4); BLOOD GAS HCO3 18 mmol/L (22-26); BLOOD GAS METHEMOGLOBIN 1.6 % (0-2); BLOOD GAS O2 HGB SATURATION 97 % (90-100); BLOOD GAS OXYGEN CONTENT 13.9 Vol % (12.0-20.0); BLOOD GAS PCO2 37 mmHg (38-42); BLOOD GAS PO2 393 mmHg (61-120); BLOOD GAS TOTAL HGB 9.4 G/DL (12.0-16.0); TEMP CORR TO 98.6
[2017-01-20 10:28] LABS: CRITICAL VALUE NO; OXYGEN DEVICE VENTILATOR
[2017-01-20 10:29] LABS: DRAW SITE ART LINE; FIO2 100 %; STAT NO; VENT SETTINGS 16/IP18/PEEP12
--- NOTE | 2017-01-20 12:13 | HHI.NPPN ---
Subjective General Problems: Anemia, Edema, Heart Disease Renal Failure: Acute History of Present Illness 71-year-old the white male the who is transferred from [facility] to [facility] due to atrial fibrillation with fast ventricular response, he was in the heart catheterization lab and became unstable has to intubated the patient has chronic kidney disease, Cardiomyopathy ejection fraction of only 15% and has severe dilated cardiomyopathy with the clot in left atrium he is on heparin drip and currently on ventilator. Additional Remarks Patient remain on the vent. and sedated, intubated or Roto prone bed, clinically same. Objective Data Data 01/19/17 01/20/17 19:00 07:00 Intake Total 1584 ml 1661 ml Output Total 390 ml 65 ml Balance 1194 ml 1596 ml Intake Oral 0 ml IV Total 972 ml 1049 ml Tube Feeding 402 ml 482 ml Other 210 ml 130 ml Output Urine Total 40 ml 15 ml Stool Total 50 ml 50 ml Gastric Drainage Total 0 ml Hemodialysis 300 ml Vital Signs Date Time Temp Pulse Resp B/P Pulse Ox O2 Delivery O2 Flow Rate FiO2 01/20/17 11:00 97.8 60 16 111/67 100 126/77 01/20/17 11:00 80 01/20/17 11:00 100 Mechanical Ventilator 80 01/20/17 11:00 60 01/20/17 10:30 97 80 01/20/17 08:11 94 100 01/20/17 07:00 99 Mechanical Ventilator 100 01/20/17 07:00 54 01/20/17 07:00 100 01/20/17 07:00 97.7 54 16 93/49 99 89/61 01/20/17 04:35 95 75 01/20/17 04:00 97.6 77 16 93 159/75 01/20/17 04:00 74 01/20/17 04:00 94 Mechanical Ventilator 80 01/20/17 04:00 80 01/20/17 03:41 93 80 01/20/17 03:00 99 01/20/17 00:00 97.5 93 17 98 132/63 01/19/17 23:59 98 Mechanical Ventilator 80 01/19/17 23:59 80 01/19/17 23:50 100 80 01/19/17 23:35 99 01/19/17 21:45 95 01/19/17 21:45 99 Mechanical Ventilator 95 01/19/17 20:50 91 95 01/19/17 20:00 100 01/19/17 20:00 86 Mechanical Ventilator 100 01/19/17 20:00 97.7 106 17 86 124/67 01/19/17 19:40 108 01/19/17 16:10 97 40 01/19/17 15:00 117 01/19/17 15:00 97.5 117 16 95 111/66 01/19/17 15:00 95 Mechanical Ventilator 40 01/19/17 15:00 40 01/19/17 14:31 98 40 -: 01/20/17 0923 01/20/17 0350 Microbiology 01/20/17 Aerobic Blood Culture, Received Pending 01/20/17 Anaerobic Blood Culture, Received Pending 01/20/17 Aerobic Blood Culture, Received Pending 01/20/17 Anaerobic Blood Culture, Received Pending Physical Exam General Appearance Remarks Intubated and sedated. Eyes Eye Exam: Pupils Equal Throat Throat Exam: Oral Mucosa Laplace & Moist Pulmonary Resp Exam: Crackles, Rhonchi, Decreased Bases, Diminished Breath Sounds Cardiology CV Exam: Arrhythmia Gastrointestinal/Abdomen GI Exam: Soft, Non-Tender, Distended Extremeties Extremities Exam: Moderate Edema, Pitting Edema, Dependent Edema Neurologic Neuro Exam: Sedated Assessment/Plan Problem List: (1) Acute renal failure Plan: Patient urine out put is lower He has poor ejection fraction and is intubated Severe cardiomyopathy prognosis is guarded. hemodialysis proceedings poor blood flow Seen by Hematology, now on Argatroban. HD done yesterday and 3 liters removed. Follow BMP and HD as needed. (2) CKD (chronic kidney disease) stage 4, GFR 15-29 ml/min Plan: Has high creatinine kidney ultrasound reviewed (3) CHF (congestive heart failure) Plan: Severe cardiomyopathy EF 15% (4) Atrial fibrillation with rapid ventricular response Plan: Has a blood clot in LA appendage Problem Qualifiers (1) CHF (congestive heart failure): Ney Candelaria MD January 20, 2017 12:13
[2017-01-20] MEDS: CEFEPIME INJ 2,000 MG in SODIUM CHLORIDE 0.9% INJ 100 ML IV SCH (12:48)
--- NOTE | 2017-01-20 15:52 | HHI.PR ---
Subjective Remarks ass: RESPIRATORY FAILURE RENAL FAILURE CHF MORBID OBESITY Objective Vital Signs Date Time Temp Pulse Resp B/P Pulse Ox O2 Delivery O2 Flow Rate FiO2 01/20/17 15:00 98.3 60 16 96/44 99 117/55 01/20/17 15:00 99 Mechanical Ventilator 60 01/20/17 15:00 60 01/20/17 15:00 67 01/20/17 12:14 94 70 01/20/17 11:00 97.8 60 16 111/67 100 126/77 01/20/17 11:00 80 01/20/17 11:00 100 Mechanical Ventilator 80 01/20/17 11:00 60 01/20/17 10:30 97 80 01/20/17 08:11 94 100 01/20/17 07:00 99 Mechanical Ventilator 100 01/20/17 07:00 54 01/20/17 07:00 100 01/20/17 07:00 97.7 54 16 93/49 99 89/61 01/20/17 04:35 95 75 01/20/17 04:00 97.6 77 16 93 159/75 01/20/17 04:00 74 01/20/17 04:00 94 Mechanical Ventilator 80 01/20/17 04:00 80 01/20/17 03:41 93 80 01/20/17 03:00 99 01/20/17 00:00 97.5 93 17 98 132/63 01/19/17 23:59 98 Mechanical Ventilator 80 01/19/17 23:59 80 01/19/17 23:50 100 80 01/19/17 23:35 99 01/19/17 21:45 95 01/19/17 21:45 99 Mechanical Ventilator 95 01/19/17 20:50 91 95 01/19/17 20:00 100 01/19/17 20:00 86 Mechanical Ventilator 100 01/19/17 20:00 97.7 106 17 86 124/67 01/19/17 19:40 108 01/19/17 16:10 97 40 I/O 01/19/17 01/19/17 01/19/17 01/20/17 01/20/17 01/20/17 06:59 14:59 22:59 06:59 14:59 22:59 Intake Total 2001 ml 1584 ml 1661 ml Output Total 175 ml 300 ml 90 ml 65 ml Balance 1826 ml -300 ml 1494 ml 1596 ml Intake Oral 0 ml 0 ml IV Total 1410 ml 972 ml 1049 ml Tube Feeding 481 ml 402 ml 482 ml Other 110 ml 210 ml 130 ml Output Urine Total 75 ml 40 ml 15 ml Stool Total 100 ml 50 ml 50 ml Gastric Drainage Total 0 ml Hemodialysis 300 ml Result Diagram: 01/20/17 0923 01/20/17 0350 Objective Remarks GENERAL: SKIN: Warm and dry. HEAD: Atraumatic. Normocephalic. EYES: Pupils equal and round. No scleral icterus. No injection or drainage. ENT: No nasal bleeding or discharge. Mucous membranes pink and moist. NECK: Trachea midline. No JVD. CARDIOVASCULAR: Regular rate and rhythm. RESPIRATORY: No accessory muscle use. Clear to auscultation. Breath sounds equal bilaterally. GASTROINTESTINAL: Abdomen soft, non-tender, nondistended. Hepatic and splenic margins not palpable. MUSCULOSKELETAL: Extremities without clubbing, cyanosis, or edema. No obvious deformities. NEUROLOGICAL: Awake and alert. No obvious cranial nerve deficits. Motor grossly within normal limits. Five out of 5 muscle strength in the arms and legs. Normal speech. PSYCHIATRIC: Appropriate mood and affect; insight and judgment normal. Assessment and Plan Assessment and Plan RESPIRATORY FAILURE RENAL FAILURE CHF MORBID OBESITY PLAN: VENT SUPPORT RENAAL FOLLOWING WEAN WHEN POSSIBLE Marine Hawthorne MD January 20, 2017 15:52
[2017-01-20] MEDS: EPOPROSTENOL NEB SOLUTION 50 NG/KG/MIN 100 ML NEB SCH ×2 (17:42)
[2017-01-20] MEDS ORDERED: EPOPROSTENOL NEB SOLUTION 10 NG/KG/MIN 100 ML NEB SCH ×2 (18:00)
[2017-01-20] MEDS: fentaNYL DRIP 250 ML IV SCH (18:27)
[2017-01-20] MEDS ORDERED: CARVEDILOL 3.125 MG TAB PO SCH (21:00)
[2017-01-20 21:59] LABS: APTT (PATIENT) 66.4 SEC (24.3-30.1)
[2017-01-20 23:10] LABS: HEMATOCRIT 25.9 % (39.0-51.0); MEAN CELL VOLUME 88.1 FL (80.0-100.0); MEAN CORPUSCULAR HEMOGLOBIN 29.3 PG (27.0-34.0); MEAN CORPUSCULAR HGB CONC 33.2 % (32.0-36.0); PLATELET COUNT 59 TH/MM3 (150-450); RED BLOOD COUNT 2.94 MIL/MM3 (4.50-5.90); RED CELL DISTRIBUTION WIDTH 17.3 % (11.6-17.2); WHITE BLOOD COUNT 13.2 TH/MM3 (4.0-11.0)
[2017-01-20 23:28] LABS: REVIEW FLAG FINAL
[2017-01-21] VITALS (15 sets, daily range): BP systolic 95–178; BP diastolic 49–91; PULSE 50–111; RESP 16; TEMP 97.6–98.8; O2SAT 93–99
[2017-01-21] MEDS: CISATRACURIUM INJ 100 MG in SODIUM CHLOR 0.9% 250 ML INJ 240 ML IV SCH ×5 (01:06→21:13)
[2017-01-21] MEDS: PROPOFOL 1000 MG/100 ML IV SCH ×5 (01:06→19:16)
[2017-01-21] MEDS: metroNIDAZOLE 500 MG TAB PO SCH ×3 (01:07→17:13)
[2017-01-21] MEDS: CHLORHEXIDINE GLUCONATE 2 % 1 PACK (2 CLOTHS) TOP SCH (04:00)
[2017-01-21] MEDS: RESP: LEVALBUTEROL HYDROCHLORIDE 0.63 MG/3 ML NEB (SCH) NEB ×4 (04:01→21:18)
[2017-01-21] MEDS: RESP: SODIUM CHLORIDE 3% 4 ML NEB NEB SCH ×4 (04:01→21:18)
[2017-01-21] MEDS: RESP: IPRATROPIUM 0.5 MG/2.5 ML NEB NEB SCH ×4 (04:01→21:18)
[2017-01-21 05:11] LABS: BLOOD GAS BASE EXCESS -8.6 mmol/L (-2-2); BLOOD GAS CARBOXYHEMOGLOBIN 1.5 % (0-4); BLOOD GAS HCO3 17 mmol/L (22-26); BLOOD GAS METHEMOGLOBIN 1.8 % (0-2); BLOOD GAS O2 HGB SATURATION 93 % (90-100); BLOOD GAS OXYGEN CONTENT 10.8 Vol % (12.0-20.0); BLOOD GAS PCO2 34 mmHg (38-42); BLOOD GAS PO2 90 mmHg (61-120); BLOOD GAS TOTAL HGB 8.1 G/DL (12.0-16.0); CRITICAL VALUE NO; OXYGEN DEVICE VENTILATOR; TEMP CORR TO 98.6
[2017-01-21 05:13] LABS: VENT SETTINGS PC/AC
[2017-01-21 05:14] LABS: DRAW SITE ART LINE; FIO2 50 %; STAT NO
[2017-01-21] MEDS: METOCLOPRAMIDE HCL 10 MG/2 ML VIAL IV PUSH SCH ×3 (05:56→21:33)
[2017-01-21] MEDS: ARGATROBAN INJ 250 MG in SODIUM CHLOR 0.9% 250 ML INJ 250 ML IV SCH (05:56)
[2017-01-21] MEDS: ARTIFICIAL TEARS OPTH SOLN 15 ML BTL EACH EYE SCH ×3 (05:57→21:34)
[2017-01-21] MEDS: INSULIN ASPART SUPPLEMENTAL SCALE SQ SCH ×4 (06:00→18:00)
[2017-01-21 06:20] LABS: AUTOMATED NEUTROPHIL # 11.1 TH/MM3 (1.8-7.7); BASOPHIL % 0.2 % (0.0-2.0); EOSINOPHIL % 0.2 % (0.0-4.0); HEMATOCRIT 25.8 % (39.0-51.0); LYMPH % 1.2 % (9.0-44.0); LYMPHOCYTE # 0.1 TH/MM3 (1.0-4.8); MEAN CELL VOLUME 88.5 FL (80.0-100.0); MEAN CORPUSCULAR HEMOGLOBIN 28.8 PG (27.0-34.0); MEAN CORPUSCULAR HGB CONC 32.5 % (32.0-36.0); MONO % 3.5 % (0.0-8.0); NEUT % 94.9 % (16.0-70.0); PLATELET COUNT 56 TH/MM3 (150-450); RED BLOOD COUNT 2.92 MIL/MM3 (4.50-5.90); RED CELL DISTRIBUTION WIDTH 16.9 % (11.6-17.2); WHITE BLOOD COUNT 11.7 TH/MM3 (4.0-11.0)
[2017-01-21 06:21] LABS: HEMO FLAGS AUTO DIFF
[2017-01-21 06:31] LABS: APTT (PATIENT) 74.9 SEC (24.3-30.1)
--- NOTE | 2017-01-21 06:56 | HHI.CCPN ---
Subjective Remarks/Hospital Course This is a 71-year-old gentleman that presented to [facility] secondary to dyspnea and atrial fibrillation with RVR. The patient has a medical history significant for obesity and hypertension. During his hospitalization at [facility], the patient underwent an echocardiogram which showed severe systolic dysfunction with an ejection fraction of 1015 % the patient then underwent a cardiac catheterization showing significance with left circumflex 90%. The patient underwent multiple attempts of unsuccessful synchronized cardioversion. The patient also underwent medical management with beta blockers, and calcium channel blockers that were also unsuccessful. The patient was transferred to [facility] for cardiac ablation with Dr. Jimenez. The patient was scheduled for cardiac ablation, the procedure was canceled. The patient required emergent intubation and required ventilator management a VLADIMIR was performed showing a clot in the left atrial appendage. The patient was placed on IV Cardizem, and an amiodarone infusion. Critical Care medicine was consulted for management. 01/06: Tmax 97.4. The patient remained on elevated vent settings with FiO2 of 1.0 overnight, PEEP requirements were increased to 8, to maintain a PaO2 of greater than [address] scan of the chest was obtained which noted bilateral effusions small, basilar consolidations right worse than the left, and a loculated area representing a possible pneumonia process, empyema, as well as aspiration or just loculated fluid as well as a small pericardial effusion. The patient continues on Cardizem and amiodarone infusions with a heart rate overnight 80s -115. The patient's vasopressor requirements of phenylephrine diminished to 20 mcgs. 01/07: Tmax 99.2. Yesterday the central line was placed for vasoactive medications and CVP monitoring, small hematoma noted near the right IJ area soft no compression of major vessels, with resolution of bleeding in that area. Phenylephrine was discontinued yesterday. The patient heart rate remains today [id number]. Cardizem infusion has been discontinued in the setting of EF of 10-15%. Esmolol infusion to be initiated this a.m.. Coumadin was initiated last night now placed on hold due to patient bleeding from nasopharynx and oropharynx. INR currently 1.2. Plan for CT thorax tomorrow, with possible IR intervention versus CVT consultation for possible empyema the patient will remain on heparin infusion, and transition onto Coumadin after any potential procedures to be initiated. Chest x-ray slightly improved FiO2 decreasing now 70%. Sedation vacation yesterday revealed GCS 11 T, patient alert responsive following commands. With initiation of antibiotics, leukocytosis resolved. ID consulted Dr. Gage. Blood cultures are pending. 01/08: Patient's heart rate 110-[address] scan of the chest imaging revealed fluid. Plan for thoracentesis and and studies of pleural fluid , this afternoon. The patient remains on amiodarone and heparin infusions, per cardiology. Heparin held, for thoracentesis this afternoon, and then will be resumed. The patient was maintained on CPAP trial for approximately one hour yesterday. During sedation vacation patient was alert following commands recognizing family. Plan to resume CPAP trials this afternoon post thoracentesis. 01/09: The patient underwent CT-guided thoracentesis yesterday , on the right side noted 400 cc of fluid was removed , with specimens ordered to be sent for evaluation .This morning chest x-ray performed showing almost complete opacification of the left lung. FiO2 requirements increase patient on FiO2 of 80%, O2 sat 94%. Left chest ultrasound obtained revealing no fluid. Consent obtained BAL performed, revealing emanating from the nearest previously ( patient was noted to have epistaxis with initiation of heparin on 01/06). Blood clots noted in left lung upon visualization with bronchoscopy, saline lavage applied, minimal blood clots removed. The patient was initiated on Mucomyst 10% , and pulmonology was consulted. Dr. Tasia Lama following. The patient shows no signs or evidence of bleeding actively, plan to consult ENT if signs of active bleeding become evident. Hemoglobin remains stable.The patient converted into sinus rhythm is today afternoon. Cardiology management of medications, IV amiodarone discontinued this afternoon. 01/10: Tmax 99.0. Chest x-ray shows slight improvement of left lung today. Plan for repeat bronchoscopy per Dr. Burch this a.m, and the patient continues on Mucomyst. The patient's cardiac rhythm reverted to A. fib last evening, amiodarone IV infusion reinstituted per Dr. Jimenez. 01/11: TMax 100.0. Much improved chest x-ray this morning. The patient continues in A. fib with a rate of 120, he continues on amiodarone, heparin infusion per cardiology. No evidence of active bleeding. 5/12 Patient Remains sedated with Diprivan, intubated. T:99.9. On Neosyn 15 mics , heparin and Amio drips. In Afib with RRV. Patient s/p repeat bronch with BAL yesterday by Dr. Burch and ETT replacement by Dr. Sanchez. On PC/AC with PEEP:14 , FIO2 100%. 01/13: TMax 100.2. Last night the nurse reported that the patient had a small amount of epistaxis, and blood in the oropharynx noted. The area continued to bleed during the night. ENT has been consulted. Heparin has been placed on hold , ASA has been discontinued in the setting of acute renal failure. The patient continues on amiodarone infusion , heart rate 120's. Neosynephrine has been discontinued, and Levophed instituted. Creatinine noted to be 4.5. As per report , states patient does not want dialysis. The patient continues on elevated PEEP of 14. 5/14: Heparin was discontinued yesterday in the setting of continued bleeding in the nasal/ oropharyngeal region. ENT was consulted and nasal packing was applied. During the night the patient still had small noted amount of bleeding from the oropharyngeal area plan today for oropharyngeal packing. Hgb 9, will transfuse .The patient was placed on norepinephrine for currently at 1-2 mcgs per minute. PEEP has been decreased to 12, with adequate oxygenation a PaO2 of 71. 5/15: Tmax 99.0. The patient continues to be anemic and thrombocytopenic, contributory factors being uremia. The patient's /family decided to pursue hemodialysis at this point. The patient received 1 unit of packed red blood cells yesterday. The patient was initiated on dialysis yesterday afternoon, with approximately 3 L removed. Nasal gauze packing removed and placement of nasal balloons by ENT yesterday. Oral gauze packing to be removed today. The patient received 2 separate doses of digoxin, A. fib heart rate ranging 80- < 120. The patient continues to have high ventilatory requirements, FiO2 was increased throughout the night to currently 80%, to maintain O2 sat greater than 92%. 01/16: FiO2 at 85%. Large clots removed from oropharynx overnight. Transfused 2 units PRBCs yesterday. No bowel movement. Tolerating tube feeds at 40 cc now with Nepro 01/17: Maximum 100.6. CURRENT TEMPERATURE 98.1. Central line pulled out yesterday. Flolan initiated yesterday and FiO2 down to 65%. Tolerating tube feeds. No bowel movement. Arousable weakly follow commands yesterday 01/18: Tmax 99.8. Currently afebrile. Initially, hemoptysis with desaturation requiring bronchoscopy. See bronchoscopy note. Roto-Rest bed ordered. FiO2 from 100-70% currently. On Nimbex drip. No BM. Tolerating tube feeds. 01/19: Afebrile. FiO2 down to 40%. We will attempt a wean Flolan today. On Nimbex drip. Positive BM yesterday. Tolerating tube feeds. 01/20: FiO2 back to 100%. Flolan "fell off "overnight. Ventilator adjusted back to 100%. Flolan reinstituted. Chest x-ray and ABG pending. Tolerating tube feeds. Positive BM. Afebrile. Subjective: 01/21: Intolerant of tube feeding. KUB pending. Afebrile. Bleeding from bilateral nares and Alanis overnight. Argatroban has been held. Positive BM. Objective Vital Signs Date Time Temp Pulse Resp B/P Pulse Ox O2 Delivery O2 Flow Rate FiO2 01/21/17 04:40 99 50 01/21/17 04:00 Mechanical Ventilator 01/21/17 00:00 98.0 64 16 98/63 168/82 Intake and Output 01/20/17 01/20/17 01/21/17 08:00 16:00 00:00 Intake Total 1661 ml 1393 ml Output Total 65 ml 1020.0 ml Balance 1596 ml 373.0 ml Result Diagram: 01/21/17 0600 01/20/17 0350 Other Results Microbiology Date/Time Procedure Status Source Growth 01/20/17 10:50 Aerobic Blood Culture Received Blood Peripheral Pending 01/20/17 10:50 Anaerobic Blood Culture Received Blood Peripheral Pending Imaging Last Impressions Chest X-Ray 01/20/17 0000 Signed Impressions: Service Date/Time: Friday, January 20, 2017 07:48 - CONCLUSION: No significant interval change with persistent asymmetric bilateral pulmonary parenchymal opacity. Geovanny Lynch MD Abdomen X-Ray 01/18/17 0000 Signed Impressions: Service Date/Time: January 07:52 - CONCLUSION: 1. No evidence of obstruction. Manuel Petersen MD Renal Ultrasound 01/09/17 0000 Signed Impressions: Service Date/Time: Monday, January 09, 2017 13:56 - CONCLUSION: 1. Right kidney is sonographically normal. 2. Benign-appearing 2.4 x 1.5 cm cortical cyst in the midpole of the left kidney. 3. Subcentimeter echogenic, non-shadowing foci in the midpole of the left kidney would be unusual for stones and may represent ectopic hilar fat. No hydronephrosis. 4. Urinary bladder is decompressed with a Alanis catheter. Douglas Ward MD Chest Ultrasound 01/09/17 0000 Signed Impressions: Service Date/Time: Monday, January 09, 2017 08:18 - CONCLUSION: No left-sided pleural effusion. The abnormality in the left chest on chest radiograph is likely related to mucous plugging. When patient had a CT scan yesterday the left lung was well aerated. Edgardo Mayorga MD Chest CT 01/08/17 0600 Signed Impressions: Service Date/Time: Sunday, January 08, 2017 08:46 - CONCLUSION: Massive cardiomegaly with panchamber enlargement extensive coronary calcifications. Stable trace pericardial effusion. Increasing bibasilar consolidative changes with minimal bilateral pleural effusions.. Rhys Fritz MD FACR Thoracentesis 01/08/17 0000 Signed Impressions: Service Date/Time: Sunday, January 08, 2017 16:08 - CONCLUSION: Uncomplicated CT-guided thoracentesis on the right. The left sided thoracentesis was not performed as there was no significant left pleural fluid. The abnormality on most recent chest x-ray was secondary to mucous plugging and left sided atelectasis. Edgarod Mayorga MD Objective Remarks GENERAL: 71-year-old male, critically ill-appearing obese male resting in rotarest bed SKIN: Warm and dry. No rash HEAD: Atraumatic. Normocephalic. EYES: Pupils equal and round, 3mm and reactive. No scleral icterus. No injection or drainage. ENT: Bilateral Rhino Rocket newly placed . Positive blood from mouth with suctioning NECK: Trachea midline. Unable to assess JVD secondary to body habitus. Large right-sided neck hematoma without midline shift. Evolving ecchymoses. Left subclavian central line is clean dry and intact CARDIOVASCULAR: Tachycardia, IR. S1, S2 no S4 without murmur RESPIRATORY: Diminished breath sounds throughout. Few crackles in bases bilaterally. Breath sounds equal bilaterally. GASTROINTESTINAL: Abdomen soft, obese non-tender, nondistended. I Magana bowel sounds MUSCULOSKELETAL: Extremities with 1+ peripheral edema. No obvious deformities. Posterior tibialis is palpable bilaterally. Right femoral Vas-Cath is clean dry and intact NEUROLOGICAL: Intubated and sedated. Follows commands moving extremities 4, when off sedation documented last Sunday. Urinary Catheter: Yes Assessment to: Continue Alanis insert reason: Prolonged Immobilization Date of Insertion: January 05, 2017 Vascular Central Line Catheter: Yes Assessment to: Continue Date of Insertion: January 17, 2017 Line: Central Venous Catheter Side: Left Location: Subclavian, Jugular A/P Assessment and Plan Neuro/Psych: Epistaxis Propofol at 60 mcg/kg/m and fentanyl drip at 125 an hour for sedation to maintain ventilator synchrony/paralysis and started Versed drip and wean propofol back to 50 Nimbex drip at 4.0 Maintain [id number] 2 out of 4/BIS 40-60 Goal of RASS -5 01/07 No active signs of bleeding. Epistaxis resolved 01/12 New onset epistaxis, heparin discontinued Epistaxis-ENT consulted-nasal balloons in situ maintain balloons until 01/20 per ENT recommendation. Removed 01/20 but resumed bleeding overnight so replaced this a.m. oropharyngeal packing was removed by ENT 01/15 ENT following - Dr. Byrd. Respiratory: Acute hypoxic respiratory failure Left lung consolidation 2/2 previous event of epistaxis, clotted blood left lung -resolved SONU Probable aspiration Possible multilobar [id number] Bilateral pleural effusions Continue with vent support keep sat >92% On PC/AC RR 16, IP:12, IT:1.50, PEEP;12, FIO2 50, decrease FIO2 as tolerated, Flolan currently 50 ng/kg per minute. Continue CXR 01/19-no change in bibasilar infiltrates Currently on Xopenex and Atrovent aerosols every 6 hours ICU vent bundle. Pulmonology following- Dr. Burch 01/05 CT chest-pericardial effusion small, bilateral effusions, basilar consolidation and right greater than left Solu-Medrol 40 mg IV Q8hr 01/08-right CT-guided thoracentesis-400 cc removed, sent for cytology and cultures s/p bronch 01.11 by- Dr. 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 No obvious source of bleeding. CV: A. fib with RVR Left atrial appendage thrombus Cardiomyopathy Acute Systolic CHF Hypertension Dyslipidemia Currently off all vasopressors Currently on Amiodarone 200 mg twice a day 01/13- Heparin, ASA discontinued due to epistaxis 01/05 VLADIMIR( Licensing Registration Examiner)-left atrial thrombus EF 15-20%. Systolic function reduced. Diffuse hyperkinesis. 12/26 [facility] severe systolic dysfunction EF 1015%, mitral valve mild to moderate regurg, LAE, tricuspid Valve-mild to moderate regurg, small pericardial effusion, 12/19 cardiac cath left circumflex 90% occlusion Management per Cardiology -Dr. Jimenez 01/15 started on Coreg 6.25 mill grams by mouth twice a day. We'll restart Coreg at 3.125 twice a day as off vasopressors At home on Coreg 25 mg twice a day, aspirin 81 mg daily, hydralazine 25 mg twice a day and HCTZ25 mg by mouth daily Renal: Acute on chronic kidney disease stage IV Nephrology following-Dr. Hahn Monitor renal function, I/O's, avoid nephrotoxins. Will need hemodialysis today Patient and family declined dialysis 01/12 Vascath placement Hemodialysis initiated 01/14. Hemodialysis yesterday 01/19 FEN/GI: Morbid obesity Hyperkalemia Hyperphosphatemia Tube feeds Nepro @50 cc High residuals are currently off recheck KUB Prevacid for GI prophylaxis Bowel Colace/Senokot twice a day. On Reglan 5 every 8 and erythromycin 200 every 8 for bowel motility/prokinetic 600 cc stool overnight. Fecal containment device placed PhosLo 667 3 times a day initiated A.m. labs still pending Heme: Leukocytosis Normocytic anemia Thrombocytopenia Monitor CBC.Hgb currently slowly down trending currently 8.2 Transfuse 3 units PRBCs and submission Will transfuse for platelet count less than 50,000 Weakly positive HIT panel-CLIFFORD is negative. - Started on Argetroban/DTI per hematology.. Okay to restart heparin drip however currently with gross hematuria and epistaxis again so all anticoagulants on hold currently. ID: Likely aspiration pneumonia 01/06 urine, sputum, blood cultures-NGTD 01/06-Legionella urine antigen negative 01/09 - bronchoscopy - yeast/ID to follow 01/12 - blood cultures 2 - no growth 01/20 - blood cultures 2 - pending Antibiotics per ID ( Cefepime/Flagyl) -Dr. Gage following, will continue with nasal packing -Monitor for signs of infections ( Fever, WBC) Recheck blood cultures and sputum today 01/20 with increased WBC. Will remove left IJ Vas-Cath Endocrine: Close monitoring per ICU protocol-medium dose regimen -- SSI Accu-Cheks every 6 hours for glycemic control Prophylaxis: GI Prophylaxis Prevacid 30 mg at night DVT Prophylaxis -- SCDs, currently off DTI Heparin discontinued 01/13. Okay to resume per hematology Lines: Peripheral IV's. Right femoral hematemesis catheter 01/19 Left subclavian CVL Dispo: is Olena Muhammad [id number] Discussed LENS DOTTERclinical asst: The total critical care time was 35 minutes. Time to perform other separately billable procedures was not included in the critical care time. Koby Cagle MD January 21, 2017 06:56
[2017-01-21 07:03] LABS: BICARBONATE 18.8 MEQ/L (21.0-32.0); MAGNESIUM 2.8 MG/DL (1.5-2.5); POTASSIUM 5.1 MEQ/L (3.5-5.1)
[2017-01-21 07:39] LABS: CALCIUM-PROTEIN CORRECTED 8.3 MG/DL (8.5-10.1)
[2017-01-21] MEDS: EPOPROSTENOL NEB SOLUTION 50 NG/KG/MIN 100 ML NEB SCH ×4 (08:04→10:00)
[2017-01-21] MEDS: MIDAZOLAM 100 MG/ML INJ 100 ML IV SCH (08:05)
[2017-01-21] MEDS: CHLORHEXIDINE 0.12% (ORAL KIT) 15 ML CUP MT SCH ×2 (08:05→21:31)
[2017-01-21] MEDS: SODIUM CHLORIDE 0.9% FLUSH 10 ML FLUSH IVF SCH (09:00)
--- NOTE | 2017-01-21 09:13 | RADRPT ---
EXAM DATE/TIME: 01/21/2017 08:34 [facility] COMPARISON: CHEST SINGLE AP, January 20, 2017, 7:48. INDICATIONS : Shortness of breath. MEDICAL HISTORY : Hypertension. SURGICAL HISTORY : Coronary artery stent. ENCOUNTER: Subsequent ACUITY: 2 weeks PAIN SCORE: 0/10 LOCATION: Bilateral chest FINDINGS: Endotracheal tube and enteric tube again seen. There is cardiomegaly and patchy consolidation bilater ally greatest in the left lower lobe. Degenerative changes of the spine are noted. CONCLUSION: Stable appearance of the chest. Gurvinder Collier MD on January 21, 2017 at 9:12 Board Certified Radiologist. This report was verified electronically.
--- NOTE | 2017-01-21 09:14 | RADRPT ---
EXAM DATE/TIME: 01/21/2017 08:41 [facility] COMPARISON: ABDOMEN KUB ONLY, January 18, 2017, 7:52. INDICATIONS : Abdomen pain. MEDICAL HISTORY : None. SURGICAL HISTORY : None. ENCOUNTER: Subsequent ACUITY: 3 weeks PAIN SCORE: 0/10 LOCATION: Bilateral abdomen FINDINGS: Examination is nondiagnostic secondary to technical factors related to the patient's bed. The bowel g as pattern is not adequately assessed. Osseous structures are not clearly seen. CONCLUSION: Nondiagnostic study. Gurvinder Collier MD on January 21, 2017 at 9:12 Board Certified Radiologist. This report was verified electronically.
[2017-01-21] MEDS: CALCIUM ACETATE 667 MG CAP PO SCH ×3 (09:26→18:24)
[2017-01-21] MEDS: AMIODARONE 200 MG TAB PO SCH ×2 (09:26→21:35)
[2017-01-21] MEDS: methylPREDNISolone SOD SUCC 40 MG/1 ML VIAL IV PUSH SCH ×2 (09:26→21:32)
[2017-01-21] MEDS: LANSOPRAZOLE SOLUTAB 30 MG TAB NG SCH (09:26)
[2017-01-21] MEDS: SENNOSIDES SYRUP 8.8 MG/5 ML CUP PO SCH ×2 (09:26→21:32)
[2017-01-21] MEDS: CARVEDILOL 3.125 MG TAB PO SCH ×2 (09:26→21:35)
[2017-01-21] MEDS: DOCUSATE SODIUM 100 MG/10 ML UDC PO SCH ×2 (09:26→21:31)
[2017-01-21] MEDS: SODIUM CHLORIDE 0.9% FLUSH 10 ML FLUSH IV FLUSH SCH ×2 (09:28→21:34)
[2017-01-21 10:22] LABS: PLATELET ESTIMATE SMEAR LOW (NORMAL); PLATELET MORPHOLOGY NORMAL (NORMAL); SCAN/DIFF AUTO DIFF CONFIRMED
--- NOTE | 2017-01-21 11:01 | PD.ONC.PN ---
Subjective Subjective Remarks Afebrile overnight. Remains intubated sedated. He had rhino rockets removed yesterday and Argatroban was restarted yesterday evening. Overnight though the patient developed epistaxis again. Rhino rockets were replaced and the argatroban was again put on hold. Also had dark stools per nurse. Objective Data Date Time Temp Pulse Resp B/P Pulse Ox O2 Delivery O2 Flow Rate FiO2 01/21/17 10:11 95 50 01/21/17 10:00 89 01/21/17 10:00 89 16 115/85 97 147/91 01/21/17 07:48 95 50 01/21/17 07:00 98.8 106 16 149/85 97 178/91 01/21/17 07:00 97 Mechanical Ventilator 50 01/21/17 07:00 50 01/21/17 07:00 102 01/21/17 04:40 99 50 01/21/17 04:00 93 Mechanical Ventilator 50 01/21/17 04:00 110 01/21/17 04:00 50 01/21/17 04:00 98.4 111 16 95/69 93 107/62 01/21/17 01:56 99 50 01/21/17 00:00 50 01/21/17 00:00 99 Mechanical Ventilator 50 01/21/17 00:00 98.0 64 16 98/63 99 168/82 01/21/17 00:00 64 01/20/17 22:35 97 50 01/20/17 22:00 100 Mechanical Ventilator 50 01/20/17 22:00 50 01/20/17 21:00 55 01/20/17 21:00 98 Mechanical Ventilator 55 01/20/17 20:35 98 55 01/20/17 20:00 102 01/20/17 20:00 97.6 103 16 118/66 97 144/65 01/20/17 20:00 97 Mechanical Ventilator 60 01/20/17 20:00 60 01/20/17 16:30 97 60 01/20/17 15:00 98.3 60 16 96/44 99 117/55 01/20/17 15:00 99 Mechanical Ventilator 60 01/20/17 15:00 60 01/20/17 15:00 67 01/20/17 12:14 94 70 01/20/17 11:00 97.8 60 16 111/67 100 126/77 01/20/17 11:00 80 01/20/17 11:00 100 Mechanical Ventilator 80 01/20/17 11:00 60 01/21/17 01/21/17 01/21/17 07:00 15:00 23:00 Intake Total 1436 ml Output Total 840 ml Balance 596 ml Result Diagram: 01/21/17 0600 01/21/17 0600 Laboratory Results Laboratory Tests Test 01/20/17 01/20/17 01/21/17 01/21/17 21:20 22:45 05:00 06:00 Activated Partial 66.4 SEC 74.9 SEC Thromboplast Time White Blood Count 13.2 TH/MM3 11.7 TH/MM3 Red Blood Count 2.94 MIL/MM3 2.92 MIL/MM3 Hemoglobin 8.6 GM/DL 8.4 GM/DL Hematocrit 25.9 % 25.8 % Mean Corpuscular Volume 88.1 FL 88.5 FL Mean Corpuscular Hemoglobin 29.3 PG 28.8 PG Mean Corpuscular Hemoglobin 33.2 % 32.5 % Concent Red Cell Distribution Width 17.3 % 16.9 % Platelet Count 59 TH/MM3 56 TH/MM3 Mean Platelet Volume 11.4 FL 11.3 FL Blood Gas Puncture Site ART LINE Blood Gas Patient Temperature 98.6 Blood Gas HCO3 17 mmol/L Blood Gas Base Excess -8.6 mmol/L Blood Gas Oxygen Saturation 93 % Arterial Blood pH 7.31 Arterial Blood Partial 34 mmHg Pressure CO2 Arterial Blood Partial 90 mmHg Pressure O2 Arterial Blood Oxygen Content 10.8 Vol % Arterial Blood 1.5 % Carboxyhemoglobin Arterial Blood Methemoglobin 1.8 % Blood Gas Hemoglobin 8.1 G/DL Oxygen Delivery Device VENTILATOR Blood Gas Ventilator Setting PC/AC Blood Gas Inspired Oxygen 50 % Neutrophils (%) (Auto) 94.9 % Lymphocytes (%) (Auto) 1.2 % Monocytes (%) (Auto) 3.5 % Eosinophils (%) (Auto) 0.2 % Basophils (%) (Auto) 0.2 % Neutrophils # (Auto) 11.1 TH/MM3 Lymphocytes # (Auto) 0.1 TH/MM3 Monocytes # (Auto) 0.4 TH/MM3 Eosinophils # (Auto) 0.0 TH/MM3 Basophils # (Auto) 0.0 TH/MM3 CBC Comment AUTO DIFF Differential Comment AUTO DIFF CONFIRMED Platelet Estimate LOW Platelet Morphology Comment NORMAL Sodium Level 134 MEQ/L Potassium Level 5.1 MEQ/L Chloride Level 96 MEQ/L Carbon Dioxide Level 18.8 MEQ/L Anion Gap 19 MEQ/L Blood Urea Nitrogen 149 MG/DL Creatinine 5.04 MG/DL Estimat Glomerular Filtration 11 ML/MIN Rate Random Glucose 91 MG/DL Calcium Level 7.2 MG/DL Protein Corrected Calcium 8.3 MG/DL Phosphorus Level 8.3 MG/DL Magnesium Level 2.8 MG/DL Total Protein 5.0 GM/DL Culture Results Microbiology Date/Time Procedure Status Source Growth 01/20/17 09:23 Aerobic Blood Culture Received Blood Peripheral Pending 01/20/17 09:23 Anaerobic Blood Culture Received Blood Peripheral Pending 01/20/17 10:50 Aerobic Blood Culture Resulted Blood Peripheral Pending 01/20/17 10:50 Anaerobic Blood Culture - Final Resulted Blood Peripheral QNS - SEE AEROBE REPORT Imaging Studies Last 24 hours Impressions Chest X-Ray 01/21/17 0800 Signed Impressions: Service Date/Time: Saturday, January 21, 2017 08:34 - CONCLUSION: Stable appearance of the chest. Gurvinder Collier MD Abdomen X-Ray 01/21/17 0000 Signed Impressions: Service Date/Time: Saturday, January 21, 2017 08:41 - CONCLUSION: Nondiagnostic study. Gurvinder Collier MD Administered Medications Medications (Trade) Dose Ordered Sig/Claire Route PRN Reason Start Time Stop Time Status Last Admin Dose Admin Propofol (Diprivan 1000 Mg/100ml Inj) 100 ml @ 0 mls/hr TITRATE IV 01/05/17 21:45 01/21/17 05:55 Docusate Sodium 100 mg 100 mg Q12HR PO 01/06/17 21:00 01/21/17 09:26 Cefepime HCl/ Sodium Chloride (Maxipime Inj/NS Inj) 100 ml @ 200 mls/hr Q24H IV 01/06/17 12:00 01/20/17 12:48 Sodium Chloride (NS Flush) 2 ml UNSCH PRN IV FLUSH FLUSH AFTER USING IV ACCESS 01/06/17 13:15 01/12/17 02:25 Sodium Chloride (NS Flush) 2 ml BID IV FLUSH 01/06/17 21:00 01/21/17 09:28 Chlorhexidine Gluconate (Chlorhexidine 2% Cloth) Taper DAILY@04 TOP 01/07/17 04:00 01/03/18 03:59 01/21/17 04:00 Insulin Aspart (NovoLOG SUPPLEMENTAL SCALE) 1 Q6HR SQ 01/10/17 06:00 01/20/17 00:07 Bisacodyl (Dulcolax Supp) 10 mg DAILY PRN RECTAL CONSTIPATION 01/10/17 09:15 Hold 01/10/17 09:56 Metronidazole (Flagyl) 500 mg Q8H PO 01/16/17 09:00 01/21/17 09:26 Sennosides (Senna Liq) 8.8 mg BID PO 01/16/17 09:00 01/21/17 09:26 Glycerin (Glycerin Adult Supp) 2 gm BID PRN RECTAL CONSTIPATION 01/17/17 06:45 01/17/17 14:30 Amiodarone HCl (Cordarone) 200 mg Q12HR PO 01/17/17 09:00 01/21/17 09:26 Sodium Chloride DAILY IVF 01/17/17 12:30 01/19/17 08:22 Cisatracurium Besylate/Sodium Chloride (Nimbex Inj/NS 250 ml Inj) 250 ml @ 0 mls/hr TITRATE IV 01/17/17 14:30 01/21/17 08:05 Artificial Tears (Tears Naturale Opth Soln) 1 drop Q8HR EACH EYE 01/17/17 22:00 01/21/17 05:57 Chlorhexidine Gluconate 15 ml 15 ml BID@08,20 MT 01/17/17 20:00 01/21/17 08:05 Midazolam HCl 100 ml @ 0 mls/hr TITRATE IV 01/17/17 16:45 01/21/17 08:05 Fentanyl Citrate (fentaNYL DRIP) 250 ml @ 0 mls/hr TITRATE IV 01/17/17 16:45 01/20/17 18:27 Metoclopramide HCl (Reglan Inj) 5 mg Q8HR IV PUSH 01/18/17 06:45 01/21/17 05:56 Calcium Acetate (Phoslo) 667 mg TID PO 01/19/17 09:00 01/21/17 09:26 Lansoprazole (Prevacid Odt) 30 mg DAILY NG 01/19/17 09:00 01/21/17 09:26 Albumin Human (Albumin 25% Inj) 25 gm UNSCH PRN IV WITH DIALYSIS 01/19/17 08:15 01/19/17 15:17 Gentamicin Sulfate (Gentamicin (Dialysis) Inj) 20 mg UNSCH PRN IV WITH DIALYSIS 01/19/17 08:15 01/19/17 09:15 Epoetin Rizwan (Epogen Inj) 4,000 units UNSCH PRN IV WITH DIALYSIS 01/19/17 08:15 01/19/17 15:10 Methylprednisolone Sodium Succinate 40 mg 40 mg BID IV PUSH 01/20/17 09:00 01/21/17 09:26 Argatroban 250 mg/ Sodium Chloride 252.5 ml @ 0 mls/hr TITRATE IV 01/19/17 23:45 01/21/17 05:56 Norepinephrine Bitartrate 4 mg/ Sodium Chloride 250 ml @ 0 mls/hr TITRATE IV 01/20/17 08:00 01/20/17 10:21 Epoprostenol Sodium/Sodium Chloride (Flolan (30,000 Ng/ml) Neb/NS Inj) 100 ml @ 8 mls/hr Q8H NEB 01/20/17 18:00 01/21/17 15:59 01/21/17 08:04 Carvedilol (Coreg) 3.125 mg Q12HR PO 01/21/17 09:00 01/21/17 09:26 Objective Remarks GENERAL: Intubated, sedated male lying supine on rotating bed. SKIN: Warm and dry. HEAD: Normocephalic. EYES: No injection or drainage. NECK: Supple, trachea midline. CARDIOVASCULAR: IRR RESPIRATORY: anterior guardado with occasional rhonchi. on mechanical ventilation GASTROINTESTINAL: Abdomen soft, non-tender, nondistended. EXTREMITIES: No cyanosis NEUROLOGICAL: intubated, sedated Assessment/Plan Problem List: (1) Thrombosis of left atrium without antecedent myocardial infarction Status: Acute Plan: --on Argatroban (on hold at present d/t bleeding) until current bag finished then ok to resume UFH (2) Thrombocytopenia Status: Acute Plan: --likely d/t bleeding --CLIFFORD negative (3) Epistaxis Status: Acute Plan: --Rhino rockets replaced 01/21 after being removed 01/20 --anticoagulation on hold Assessment 71y/o male admitted in afib w/RVR. 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 --hematoma from central line placement in the right neck --epistaxis requiring nasal plugs Plan 1. monitor CBC 2. hold anticoagulation while bleeding Attending Statement The exam, history, and the medical decision-making described in the above note were completed with the assistance of the mid-level provider. I reviewed and agree with the findings presented. I attest that I had a [id number] encounter with the patient on the same day, and personally performed and documented my assessment and findings in the medical record. Pt seen and examined during skin care. Noted oozing and bleeding in wound between legs and gluteal. Argatroban already DC'd. Nasal balloons in place. Some hematuria in [place], increase residual with brownish color. Concern that thrombocytopenia consumed from these areas requiring hemostasis. Check DIC panel, supportive treatment, unable to anticoagulate in light of bleeding. Follow cytopenia for now. Priya Fraga January 21, 2017 11:01 Meghan Torres MD January 21, 2017 15:11
[2017-01-21 11:52] LABS: APTT (PATIENT) 52.4 SEC (24.3-30.1); INTERNATIONAL NORMALIZED RATIO 1.9 RATIO; PROTHROMBIN TIME - PATIENT 21.3 SEC (9.8-11.6)
[2017-01-21] MEDS: CEFEPIME INJ 2,000 MG in SODIUM CHLORIDE 0.9% INJ 100 ML IV SCH (12:56)
[2017-01-21] MEDS: ERYTHROMYCIN ETHYLSUCCINATE 200 MG/5 ML SUSP 100 ML BOTTLE PO SCH ×2 (14:01→22:00)
--- NOTE | 2017-01-21 14:04 | HHI.NPPN ---
Subjective General Problems: Anemia, Edema, Heart Disease Renal Failure: Acute History of Present Illness 71-year-old the white male the who is transferred from [facility] to [facility] due to atrial fibrillation with fast ventricular response, he was in the heart catheterization lab and became unstable has to intubated the patient has chronic kidney disease, Cardiomyopathy ejection fraction of only 15% and has severe dilated cardiomyopathy with the clot in left atrium he is on heparin drip and currently on ventilator. Additional Remarks Patient remain on the vent. and sedated, intubated or Roto prone bed, on 50% Fio2. Objective Data Data 01/20/17 01/21/17 19:00 07:00 Intake Total 1393 ml 1436 ml Output Total 710 ml 1150.0 ml Balance 683 ml 286.0 ml Intake Oral 0 ml IV Total 860 ml 1193 ml Tube Feeding 483 ml 243 ml Other 50 ml Output Urine Total 10 ml 140 ml Stool Total 700 ml 100 ml Gastric Drainage Total 600 ml Tube Feeding Residual Discard 310.0 ml Vital Signs Date Time Temp Pulse Resp B/P Pulse Ox O2 Delivery O2 Flow Rate FiO2 01/21/17 11:00 97.7 72 16 95/62 96 142/69 01/21/17 11:00 96 Mechanical Ventilator 50 01/21/17 11:00 72 01/21/17 11:00 50 01/21/17 10:11 95 50 01/21/17 10:00 89 01/21/17 10:00 89 16 115/85 97 147/91 01/21/17 07:48 95 50 01/21/17 07:00 98.8 106 16 149/85 97 178/91 01/21/17 07:00 97 Mechanical Ventilator 50 01/21/17 07:00 50 01/21/17 07:00 102 01/21/17 04:40 99 50 01/21/17 04:00 93 Mechanical Ventilator 50 01/21/17 04:00 110 01/21/17 04:00 50 01/21/17 04:00 98.4 111 16 95/69 93 107/62 01/21/17 01:56 99 50 01/21/17 00:00 50 01/21/17 00:00 99 Mechanical Ventilator 50 01/21/17 00:00 98.0 64 16 98/63 99 168/82 01/21/17 00:00 64 01/20/17 22:35 97 50 01/20/17 22:00 100 Mechanical Ventilator 50 01/20/17 22:00 50 01/20/17 21:00 55 01/20/17 21:00 98 Mechanical Ventilator 55 01/20/17 20:35 98 55 01/20/17 20:00 102 01/20/17 20:00 97.6 103 16 118/66 97 144/65 01/20/17 20:00 97 Mechanical Ventilator 60 01/20/17 20:00 60 01/20/17 16:30 97 60 01/20/17 15:00 98.3 60 16 96/44 99 117/55 01/20/17 15:00 99 Mechanical Ventilator 60 01/20/17 15:00 60 01/20/17 15:00 67 -: 01/21/17 0600 01/21/17 0600 Physical Exam General Appearance Remarks Intubated and sedated. Eyes Eye Exam: Pupils Equal Throat Throat Exam: Oral Mucosa [place] & Moist Pulmonary Resp Exam: Crackles, Rhonchi, Decreased Bases, Diminished Breath Sounds Cardiology CV Exam: Arrhythmia Gastrointestinal/Abdomen GI Exam: Soft, Non-Tender, Distended Extremeties Extremities Exam: Moderate Edema, Pitting Edema, Dependent Edema Neurologic Neuro Exam: Sedated Assessment/Plan Problem List: (1) Acute renal failure Plan: Patient urine out put is lower He has poor ejection fraction and is intubated Severe cardiomyopathy prognosis is guarded. hemodialysis proceedings poor blood flow Seen by Hematology, now on Argatroban. Urine out put remain low. BUN and Creatinine high, K is 5.1. HD will be in AM, Dr. Hahn will follow. (2) CKD (chronic kidney disease) stage 4, GFR 15-29 ml/min Plan: Has high creatinine kidney ultrasound reviewed (3) CHF (congestive heart failure) Plan: Severe cardiomyopathy EF 15% (4) Atrial fibrillation with rapid ventricular response Plan: Has a blood clot in LA appendage Problem Qualifiers (1) CHF (congestive heart failure): Ney Candelaria MD January 21, 2017 14:04
[2017-01-21 15:37] LABS: HEMATOCRIT 24.3 % (39.0-51.0); MEAN CELL VOLUME 88.3 FL (80.0-100.0); MEAN CORPUSCULAR HEMOGLOBIN 29.2 PG (27.0-34.0); PLATELET COUNT 60 TH/MM3 (150-450); RED BLOOD COUNT 2.75 MIL/MM3 (4.50-5.90); RED CELL DISTRIBUTION WIDTH 16.4 % (11.6-17.2)
[2017-01-21 15:38] LABS: REVIEW FLAG FINAL
[2017-01-21] MEDS ORDERED: EPOPROSTENOL NEB SOLUTION 40 NG/KG/MIN 100 ML NEB SCH ×2 (16:00)
[2017-01-21] MEDS: fentaNYL DRIP 250 ML IV SCH (16:14)
[2017-01-21 16:28] LABS: BICARBONATE 20.6 MEQ/L (21.0-32.0); POTASSIUM 5.3 MEQ/L (3.5-5.1)
[2017-01-21 16:47] LABS: CALCIUM-PROTEIN CORRECTED 8.4 MG/DL (8.5-10.1)
[2017-01-21] MEDS: DEXTROSE 50% IN WATER 50 ML VIAL(D50) IV PUSH PRN ×3 (18:20→19:15)
[2017-01-22] VITALS (14 sets, daily range): BP systolic 89–160; BP diastolic 39–73; PULSE 52–84; RESP 16; TEMP 96.7–98; O2SAT 94–99
[2017-01-22] MEDS ORDERED: EPOPROSTENOL NEB SOLUTION 30 NG/KG/MIN 100 ML NEB SCH ×2
[2017-01-22] MEDS: metroNIDAZOLE 500 MG TAB PO SCH ×2 (00:54→08:17)
[2017-01-22] MEDS: CISATRACURIUM INJ 100 MG in SODIUM CHLOR 0.9% 250 ML INJ 240 ML IV SCH ×4 (00:56→23:39)
[2017-01-22] MEDS: CHLORHEXIDINE GLUCONATE 2 % 1 PACK (2 CLOTHS) TOP SCH (04:00)
[2017-01-22] MEDS: RESP: IPRATROPIUM 0.5 MG/2.5 ML NEB NEB SCH ×4 (04:06→22:52)
[2017-01-22] MEDS: RESP: LEVALBUTEROL HYDROCHLORIDE 0.63 MG/3 ML NEB (SCH) NEB ×4 (04:06→22:52)
[2017-01-22] MEDS: RESP: SODIUM CHLORIDE 3% 4 ML NEB NEB SCH ×2 (04:06→09:15)
[2017-01-22 05:54] LABS: AUTOMATED NEUTROPHIL # 11.6 TH/MM3 (1.8-7.7); BASOPHIL # 0.1 TH/MM3 (0-0.2); BASOPHIL % 0.6 % (0.0-2.0); HEMATOCRIT 28.2 % (39.0-51.0); LYMPH % 0.8 % (9.0-44.0); LYMPHOCYTE # 0.1 TH/MM3 (1.0-4.8); MEAN CELL VOLUME 87.3 FL (80.0-100.0); MEAN CORPUSCULAR HEMOGLOBIN 29.2 PG (27.0-34.0); MEAN CORPUSCULAR HGB CONC 33.4 % (32.0-36.0); NEUT % 96.6 % (16.0-70.0); PLATELET COUNT 66 TH/MM3 (150-450); RED BLOOD COUNT 3.23 MIL/MM3 (4.50-5.90); RED CELL DISTRIBUTION WIDTH 16.6 % (11.6-17.2)
[2017-01-22 05:56] LABS: HEMO FLAGS AUTO DIFF
[2017-01-22] MEDS: ARTIFICIAL TEARS OPTH SOLN 15 ML BTL EACH EYE SCH ×3 (05:56→21:08)
[2017-01-22] MEDS: METOCLOPRAMIDE HCL 10 MG/2 ML VIAL IV PUSH SCH ×3 (05:57→21:05)
[2017-01-22] MEDS: ERYTHROMYCIN ETHYLSUCCINATE 200 MG/5 ML SUSP 100 ML BOTTLE PO SCH ×3 (05:57→21:09)
[2017-01-22] MEDS: INSULIN ASPART SUPPLEMENTAL SCALE SQ SCH ×4 (06:00→17:11)
--- NOTE | 2017-01-22 06:01 | RADRPT ---
EXAM DATE/TIME: 01/22/2017 04:31 [place] COMPARISON: CHEST SINGLE AP, January 21, 2017, 8:34. INDICATIONS : Shortness of breath, possible pulmonary disease. MEDICAL HISTORY : Hypertension. SURGICAL HISTORY : Coronary artery stent. ENCOUNTER: Subsequent ACUITY: 3 weeks PAIN SCORE: Non-responsive. LOCATION: Bilateral chest FINDINGS: ET tube, and NG tube have not changed. Bibasilar opacities are present may be due to a combination of consolidation and or pleural effusion. There is superimposed pulmonary edema more focal in right upp er lobe and not changed. CONCLUSION: No appreciable change. Kaylah Schroeder MD on January 22, 2017 at 5:59 Board Certified Radiologist. This report was verified electronically.
[2017-01-22 06:09] LABS: APTT (PATIENT) 34.8 SEC (24.3-30.1); INTERNATIONAL NORMALIZED RATIO 1.2 RATIO; PROTHROMBIN TIME - PATIENT 13.4 SEC (9.8-11.6)
[2017-01-22 06:32] LABS: BICARBONATE 18.5 MEQ/L (21.0-32.0); MAGNESIUM 2.7 MG/DL (1.5-2.5); POTASSIUM 5.6 MEQ/L (3.5-5.1)
[2017-01-22 06:37] LABS: OVALOCYTES 1+ (NORMAL); PLATELET ESTIMATE SMEAR LOW (NORMAL); PLATELET MORPHOLOGY NORMAL (NORMAL); SCAN/DIFF AUTO DIFF CONFIRMED
[2017-01-22 07:06] LABS: CALCIUM-PROTEIN CORRECTED 8.3 MG/DL (8.5-10.1); TOTAL BILIRUBIN ADULT 0.6 MG/DL (0.2-1.0)
[2017-01-22] MEDS ORDERED: EPOPROSTENOL NEB SOLUTION 20 NG/KG/MIN 100 ML NEB SCH ×2 (08:00)
[2017-01-22] MEDS: CHLORHEXIDINE 0.12% (ORAL KIT) 15 ML CUP MT SCH ×2 (08:10→21:05)
[2017-01-22] MEDS: SODIUM CHLORIDE 0.9% FLUSH 10 ML FLUSH IV FLUSH SCH ×2 (08:10→21:05)
[2017-01-22] MEDS: CARVEDILOL 3.125 MG TAB PO SCH ×2 (08:17→21:04)
[2017-01-22] MEDS: SENNOSIDES SYRUP 8.8 MG/5 ML CUP PO SCH ×2 (08:17→21:04)
[2017-01-22] MEDS: SODIUM CHLORIDE 0.9% FLUSH 10 ML FLUSH IVF SCH (08:17)
[2017-01-22] MEDS: LANSOPRAZOLE SOLUTAB 30 MG TAB NG SCH (08:17)
[2017-01-22] MEDS: methylPREDNISolone SOD SUCC 40 MG/1 ML VIAL IV PUSH SCH ×2 (08:17→21:04)
[2017-01-22] MEDS: CALCIUM ACETATE 667 MG CAP PO SCH ×3 (08:18→17:05)
[2017-01-22] MEDS: DOCUSATE SODIUM 100 MG/10 ML UDC PO SCH ×2 (08:18→21:04)
[2017-01-22] MEDS: MIDAZOLAM 100 MG/ML INJ 100 ML IV SCH (08:18)
[2017-01-22] MEDS: fentaNYL DRIP 250 ML IV SCH (08:18)
[2017-01-22] MEDS: AMIODARONE 200 MG TAB PO SCH ×2 (08:18→21:04)
--- NOTE | 2017-01-22 09:58 | HHI.NPPN ---
Subjective General Problems: Anemia, Edema, Heart Disease Renal Failure: Acute History of Present Illness 71-year-old the white male the who is transferred from [facility] to [facility] due to atrial fibrillation with fast ventricular response, he was in the heart catheterization lab and became unstable has to intubated the patient has chronic kidney disease, Cardiomyopathy ejection fraction of only 15% and has severe dilated cardiomyopathy with the clot in left atrium he is on heparin drip and currently on ventilator. Additional Remarks Patient remain on the vent. and sedated, intubated or Roto prone bed, on 100% Fio2. Objective Data Data 01/21/17 01/22/17 18:59 06:59 Intake Total 1389 ml 1861 ml Output Total 540 ml 880.0 ml Balance 849 ml 981.0 ml Intake Oral 0 ml IV Total 1229 ml 1540 ml Tube Feeding 60 ml 71 ml Packed Cells 250 ml Other 100 ml Output Urine Total 200 ml 180 ml Stool Total 100 ml 100 ml Gastric Drainage Total 240 ml 550 ml Tube Feeding Residual Discard 50.0 ml Vital Signs Date Time Temp Pulse Resp B/P Pulse Ox O2 Delivery O2 Flow Rate FiO2 01/22/17 08:40 99 60 01/22/17 07:00 97.0 55 16 157/70 99 89/39 01/22/17 07:00 60 01/22/17 07:00 55 01/22/17 07:00 95 Mechanical Ventilator 60 01/22/17 04:09 96 60 01/22/17 04:00 97.0 53 16 124/69 99 144/67 01/22/17 04:00 52 01/22/17 04:00 99 Mechanical Ventilator 60 01/22/17 04:00 60 01/22/17 00:09 96 60 01/22/17 00:00 60 01/22/17 00:00 56 01/22/17 00:00 97.5 56 16 97/42 94 160/73 01/22/17 00:00 94 Mechanical Ventilator 60 01/21/17 23:15 93 Mechanical Ventilator 60 01/21/17 22:20 95 50 01/21/17 20:30 95 50 01/21/17 20:00 50 16 121/64 96 137/63 01/21/17 20:00 96 Mechanical Ventilator 50 01/21/17 20:00 50 01/21/17 20:00 50 01/21/17 17:34 99 50 01/21/17 16:15 98 50 01/21/17 15:00 97.6 53 16 99/49 97 136/60 01/21/17 15:00 53 01/21/17 15:00 97 Mechanical Ventilator 50 01/21/17 15:00 50 01/21/17 11:00 97.7 72 16 95/62 96 142/69 01/21/17 11:00 96 Mechanical Ventilator 50 01/21/17 11:00 72 01/21/17 11:00 50 01/21/17 10:11 95 50 01/21/17 10:00 89 01/21/17 10:00 89 16 115/85 97 147/91 -: 01/22/17 0530 01/22/17 0530 Microbiology 01/21/17 Gram Stain - Final, Resulted 01/21/17 Sputum Culture, Resulted Pending Physical Exam Eyes Eye Exam: Pupils Equal Throat Throat Exam: Oral Mucosa [place] & Moist Pulmonary Resp Exam: Crackles, Rhonchi, Decreased Bases, Diminished Breath Sounds Cardiology CV Exam: Arrhythmia Gastrointestinal/Abdomen GI Exam: Soft, Non-Tender, Distended Extremeties Extremities Exam: Moderate Edema, Pitting Edema, Dependent Edema Neurologic Neuro Exam: Sedated Assessment/Plan Problem List: (1) Acute renal failure Plan: Patient urine out put is lower He has poor ejection fraction and is intubated Severe cardiomyopathy prognosis is guarded. hemodialysis proceedings could not lay flat so he is doing poorly with hemodialysis and has to be in Roto prone bed with side to side movement UF 3 L on 1 K/HCO3 Seen by Hematology, now off Argatroban. Urine out put remain low. BUN and Creatinine high, K is 5.6 (2) CKD (chronic kidney disease) stage 4, GFR 15-29 ml/min Plan: Has high creatinine kidney ultrasound reviewed (3) CHF (congestive heart failure) Plan: Severe cardiomyopathy EF 15% (4) Atrial fibrillation with rapid ventricular response Plan: Has a blood clot in [place] appendage Problem Qualifiers (1) CHF (congestive heart failure): Christa Hahn MD January 22, 2017 09:58
--- NOTE | 2017-01-22 10:07 | HHI.CCPN ---
Subjective Remarks/Hospital Course This is a 71-year-old gentleman that presented to [facility] secondary to dyspnea and atrial fibrillation with RVR. The patient has a medical history significant for obesity and hypertension. During his hospitalization at [facility], the patient underwent an echocardiogram which showed severe systolic dysfunction with an ejection fraction of 1015 % the patient then underwent a cardiac catheterization showing significance with left circumflex 90%. The patient underwent multiple attempts of unsuccessful synchronized cardioversion. The patient also underwent medical management with beta blockers, and calcium channel blockers that were also unsuccessful. The patient was transferred to [facility] for cardiac ablation with Dr. Jimenez. The patient was scheduled for cardiac ablation, the procedure was canceled. The patient required emergent intubation and required ventilator management a VLADIMIR was performed showing a clot in the left atrial appendage. The patient was placed on IV Cardizem, and an amiodarone infusion. Critical Care medicine was consulted for management. 01/06: Tmax 97.4. The patient remained on elevated vent settings with FiO2 of 1.0 overnight, PEEP requirements were increased to 8, to maintain a PaO2 of greater than [address] scan of the chest was obtained which noted bilateral effusions small, basilar consolidations right worse than the left, and a loculated area representing a possible pneumonia process, empyema, as well as aspiration or just loculated fluid as well as a small pericardial effusion. The patient continues on Cardizem and amiodarone infusions with a heart rate overnight 80s -115. The patient's vasopressor requirements of phenylephrine diminished to 20 mcgs. 01/07: Tmax 99.2. Yesterday the central line was placed for vasoactive medications and CVP monitoring, small hematoma noted near the right IJ area soft no compression of major vessels, with resolution of bleeding in that area. Phenylephrine was discontinued yesterday. The patient heart rate remains today [id number]. Cardizem infusion has been discontinued in the setting of EF of 10-15%. Esmolol infusion to be initiated this a.m.. Coumadin was initiated last night now placed on hold due to patient bleeding from nasopharynx and oropharynx. INR currently 1.2. Plan for CT thorax tomorrow, with possible IR intervention versus CVT consultation for possible empyema the patient will remain on heparin infusion, and transition onto Coumadin after any potential procedures to be initiated. Chest x-ray slightly improved FiO2 decreasing now 70%. Sedation vacation yesterday revealed GCS 11 T, patient alert responsive following commands. With initiation of antibiotics, leukocytosis resolved. ID consulted Dr. Gage. Blood cultures are pending. 01/08: Patient's heart rate 110-[address] scan of the chest imaging revealed fluid. Plan for thoracentesis and and studies of pleural fluid , this afternoon. The patient remains on amiodarone and heparin infusions, per cardiology. Heparin held, for thoracentesis this afternoon, and then will be resumed. The patient was maintained on CPAP trial for approximately one hour yesterday. During sedation vacation patient was alert following commands recognizing family. Plan to resume CPAP trials this afternoon post thoracentesis. 01/09: The patient underwent CT-guided thoracentesis yesterday , on the right side noted 400 cc of fluid was removed , with specimens ordered to be sent for evaluation .This morning chest x-ray performed showing almost complete opacification of the left lung. FiO2 requirements increase patient on FiO2 of 80%, O2 sat 94%. Left chest ultrasound obtained revealing no fluid. Consent obtained BAL performed, revealing emanating from the nearest previously ( patient was noted to have epistaxis with initiation of heparin on 01/06). Blood clots noted in left lung upon visualization with bronchoscopy, saline lavage applied, minimal blood clots removed. The patient was initiated on Mucomyst 10% , and pulmonology was consulted. Dr. Tasia Lama following. The patient shows no signs or evidence of bleeding actively, plan to consult ENT if signs of active bleeding become evident. Hemoglobin remains stable.The patient converted into sinus rhythm is today afternoon. Cardiology management of medications, IV amiodarone discontinued this afternoon. 01/10: Tmax 99.0. Chest x-ray shows slight improvement of left lung today. Plan for repeat bronchoscopy per Dr. Burch this a.m, and the patient continues on Mucomyst. The patient's cardiac rhythm reverted to A. fib last evening, amiodarone IV infusion reinstituted per Dr. Jimenez. 01/11: TMax 100.0. Much improved chest x-ray this morning. The patient continues in A. fib with a rate of 120, he continues on amiodarone, heparin infusion per cardiology. No evidence of active bleeding. 5/12 Patient Remains sedated with Diprivan, intubated. T:99.9. On Neosyn 15 mics , heparin and Amio drips. In Afib with RRV. Patient s/p repeat bronch with BAL yesterday by Dr. Burch and ETT replacement by Dr. Sanchez. On PC/AC with PEEP:14 , FIO2 100%. 01/13: TMax 100.2. Last night the nurse reported that the patient had a small amount of epistaxis, and blood in the oropharynx noted. The area continued to bleed during the night. ENT has been consulted. Heparin has been placed on hold , ASA has been discontinued in the setting of acute renal failure. The patient continues on amiodarone infusion , heart rate 120's. Neosynephrine has been discontinued, and Levophed instituted. Creatinine noted to be 4.5. As per report , states patient does not want dialysis. The patient continues on elevated PEEP of 14. 5/14: Heparin was discontinued yesterday in the setting of continued bleeding in the nasal/ oropharyngeal region. ENT was consulted and nasal packing was applied. During the night the patient still had small noted amount of bleeding from the oropharyngeal area plan today for oropharyngeal packing. Hgb 9, will transfuse .The patient was placed on norepinephrine for currently at 1-2 mcgs per minute. PEEP has been decreased to 12, with adequate oxygenation a PaO2 of 71. 5/15: Tmax 99.0. The patient continues to be anemic and thrombocytopenic, contributory factors being uremia. The patient's /family decided to pursue hemodialysis at this point. The patient received 1 unit of packed red blood cells yesterday. The patient was initiated on dialysis yesterday afternoon, with approximately 3 L removed. Nasal gauze packing removed and placement of nasal balloons by ENT yesterday. Oral gauze packing to be removed today. The patient received 2 separate doses of digoxin, A. fib heart rate ranging 80- < 120. The patient continues to have high ventilatory requirements, FiO2 was increased throughout the night to currently 80%, to maintain O2 sat greater than 92%. 01/16: FiO2 at 85%. Large clots removed from oropharynx overnight. Transfused 2 units PRBCs yesterday. No bowel movement. Tolerating tube feeds at 40 cc now with Nepro 01/17: Maximum 100.6. CURRENT TEMPERATURE 98.1. Central line pulled out yesterday. Flolan initiated yesterday and FiO2 down to 65%. Tolerating tube feeds. No bowel movement. Arousable weakly follow commands yesterday 01/18: Tmax 99.8. Currently afebrile. Initially, hemoptysis with desaturation requiring bronchoscopy. See bronchoscopy note. Roto-Rest bed ordered. FiO2 from 100-70% currently. On Nimbex drip. No BM. Tolerating tube feeds. 01/19: Afebrile. FiO2 down to 40%. We will attempt a wean Flolan today. On Nimbex drip. Positive BM yesterday. Tolerating tube feeds. 01/20: FiO2 back to 100%. Flolan "fell off "overnight. Ventilator adjusted back to 100%. Flolan reinstituted. Chest x-ray and ABG pending. Tolerating tube feeds. Positive BM. Afebrile. Subjective: 01/21: Intolerant of tube feeding. KUB pending. Afebrile. Bleeding from bilateral nares and Alanis overnight. Argatroban has been held. Positive BM. 01/22 Patient is sedated with Fentanyl , versed in addition he is on Nimbex. Receiving HD. TF on hold for high residuals. Objective Vital Signs Date Time Temp Pulse Resp B/P Pulse Ox O2 Delivery O2 Flow Rate FiO2 01/22/17 08:40 99 60 01/22/17 07:00 97.0 55 16 157/70 89/39 01/22/17 07:00 Mechanical Ventilator Intake and Output 01/21/17 01/21/17 01/21/17 07:59 15:59 23:59 Intake Total 1436 ml 1389 ml Output Total 840 ml 590.0 ml Balance 596 ml 799.0 ml Result Diagram: 01/22/1730 01/22/17529 Other Results Laboratory Tests Test 01/21/17 01/21/17 01/21/17 01/22/17 11:05 15:15 17:10 05:30 Prothrombin Time 21.3 SEC 13.4 SEC Prothromb Time International 1.9 RATIO 1.2 RATIO Ratio Activated Partial 52.4 SEC 34.8 SEC Thromboplast Time Fibrinogen 429 mg/dL 445 mg/dL White Blood Count 11.0 TH/MM3 12.0 TH/MM3 Red Blood Count 2.75 MIL/MM3 3.23 MIL/MM3 Hemoglobin 8.0 GM/DL 9.4 GM/DL Hematocrit 24.3 % 28.2 % Mean Corpuscular Volume 88.3 FL 87.3 FL Mean Corpuscular Hemoglobin 29.2 PG 29.2 PG Mean Corpuscular Hemoglobin 33.0 % 33.4 % Concent Red Cell Distribution Width 16.4 % 16.6 % Platelet Count 60 TH/MM3 66 TH/MM3 Mean Platelet Volume 11.0 FL 11.0 FL Sodium Level 135 MEQ/L 133 MEQ/L Potassium Level 5.3 MEQ/L 5.6 MEQ/L Chloride Level 97 MEQ/L 95 MEQ/L Carbon Dioxide Level 20.6 MEQ/L 18.5 MEQ/L Anion Gap 17 MEQ/L 20 MEQ/L Blood Urea Nitrogen 163 MG/DL 169 MG/DL Creatinine 5.11 MG/DL 5.34 MG/DL Estimat Glomerular Filtration 11 ML/MIN 11 ML/MIN Rate Random Glucose 112 MG/DL 89 MG/DL Calcium Level 7.1 MG/DL 7.4 MG/DL Protein Corrected Calcium 8.4 MG/DL 8.3 MG/DL Total Protein 4.7 GM/DL 5.4 GM/DL Blood Type O POSITIVE Antibody Screen NEGATIVE Crossmatch Leukocyte-Reduced Red Blood Cells Blood Bank Comment Neutrophils (%) (Auto) 96.6 % Lymphocytes (%) (Auto) 0.8 % Monocytes (%) (Auto) 2.0 % Eosinophils (%) (Auto) 0.0 % Basophils (%) (Auto) 0.6 % Neutrophils # (Auto) 11.6 TH/MM3 Lymphocytes # (Auto) 0.1 TH/MM3 Monocytes # (Auto) 0.2 TH/MM3 Eosinophils # (Auto) 0.0 TH/MM3 Basophils # (Auto) 0.1 TH/MM3 CBC Comment AUTO DIFF Differential Comment AUTO DIFF CONFIRMED Platelet Estimate LOW Platelet Morphology Comment NORMAL Ovalocytes 1+ Lactic Acid Level 0.6 mmol/L Phosphorus Level 10.2 MG/DL Magnesium Level 2.7 MG/DL Total Bilirubin 0.6 MG/DL Aspartate Amino Transf 23 U/L (AST/SGOT) Alanine Aminotransferase 31 U/L (ALT/SGPT) Alkaline Phosphatase 55 U/L Albumin 2.2 GM/DL Lipase 170 U/L Imaging Last Impressions Chest X-Ray 01/22/17599 Signed Impressions: Service Date/Time: Sunday, January 22, 2017 04:31 - CONCLUSION: No appreciable change. Kaylah Schroeder MD Abdomen X-Ray 01/21/17 Signed Impressions: Service Date/Time: Saturday, January 21, 2017 08:41 - CONCLUSION: Nondiagnostic study. Gurvinder Collier MD Renal Ultrasound 01/09/17 Signed Impressions: Service Date/Time: Monday, January 09, 2017 13:56 - CONCLUSION: 1. Right kidney is sonographically normal. 2. Benign-appearing 2.4 x 1.5 cm cortical cyst in the midpole of the left kidney. 3. Subcentimeter echogenic, non-shadowing foci in the midpole of the left kidney would be unusual for stones and may represent ectopic hilar fat. No hydronephrosis. 4. Urinary bladder is decompressed with a Alanis catheter. Douglas Ward MD Chest Ultrasound 01/09/17 Signed Impressions: Service Date/Time: Monday, January 09, 2017 08:18 - CONCLUSION: No left-sided pleural effusion. The abnormality in the left chest on chest radiograph is likely related to mucous plugging. When patient had a CT scan yesterday the left lung was well aerated. Edgardo Mayorga MD Chest CT 01/08/17599 Signed Impressions: Service Date/Time: Sunday, January 08, 2017 08:46 - CONCLUSION: Massive cardiomegaly with panchamber enlargement extensive coronary calcifications. Stable trace pericardial effusion. Increasing bibasilar consolidative changes with minimal bilateral pleural effusions.. Rhys Fritz MD FACR Thoracentesis 01/08/17 Signed Impressions: Service Date/Time: Sunday, January 08, 2017 16:08 - CONCLUSION: Uncomplicated CT-guided thoracentesis on the right. The left sided thoracentesis was not performed as there was no significant left pleural fluid. The abnormality on most recent chest x-ray was secondary to mucous plugging and left sided atelectasis. Edgardo Mayorga MD Objective Remarks GENERAL: 71-year-old male, critically ill-appearing obese male resting in rotarest bed SKIN: Warm and dry. No rash HEAD: Atraumatic. Normocephalic. EYES: Pupils equal and round, 3mm and reactive. No scleral icterus. No injection or drainage. ENT: Bilateral Rhino Rocket newly placed . Positive blood from mouth with suctioning NECK: Trachea midline. Unable to assess JVD secondary to body habitus. Large right-sided neck hematoma without midline shift. Evolving ecchymoses. Left subclavian central line is clean dry and intact CARDIOVASCULAR: Tachycardia, IR. S1, S2 no S4 without murmur RESPIRATORY: Diminished breath sounds throughout. Few crackles in bases bilaterally. Breath sounds equal bilaterally. GASTROINTESTINAL: Abdomen soft, obese non-tender, nondistended. I Magana bowel sounds MUSCULOSKELETAL: Extremities with 1+ peripheral edema. No obvious deformities. Posterior tibialis is palpable bilaterally. Right femoral Vas-Cath is clean dry and intact NEUROLOGICAL: Intubated and sedated. Follows commands moving extremities 4, when off sedation documented last Sunday. Date of Insertion: January 05, 2017 Date of Insertion: January 17, 2017 Line: Central Venous Catheter Side: Left Location: Subclavian, Jugular A/P Assessment and Plan Neuro/Psych: Epistaxis Continue with Fenntayl and Versed infusion for sedation in addition patient iso n Nimbex. Maintain [id number] 2 out of 4/BIS 40-60 Goal of RASS -5 01/07 No active signs of bleeding. Epistaxis resolved 01/12 New onset epistaxis, heparin discontinued Epistaxis-ENT consulted-nasal balloons in situ maintain balloons until 01/20 per ENT recommendation. Removed 01/20 but resumed bleeding so replaced yesterday - 01/21 ENT following - Dr. Byrd. Respiratory: Acute hypoxic respiratory failure Left lung consolidation 2/2 previous event of epistaxis, clotted blood left lung -resolved SONU Probable aspiration Possible multilobar [id number] Bilateral pleural effusions Continue with vent support keep sat >92% On PC/AC RR 16, IP:14, IT:1.50, PEEP;12, FIO2 100, decrease FIO2 as tolerated, Flolan currently 50 ng/kg per minute. Continue Currently on Xopenex and Atrovent aerosols every 6 hours ICU vent bundle. Pulmonology following- Dr. Marcin Meehan-Medrol 40 mg IV BID On Flolan 20ng/kg/min nebs 8ml/hr 01/08-right CT-guided thoracentesis-400 cc removed, sent for cytology and cultures s/p bronch . by- Dr. Burch for blood clots left lung Status post bronch 01/17 by tobacco sampler - bloody mucous plug at saturnino/mainstem section cleared. No obvious source of bleeding. CV: A. fib with RVR Left atrial appendage thrombus Cardiomyopathy Acute Systolic CHF Hypertension Dyslipidemia On Amiodarone 200 mg twice a day, Coreg 3.125mg BID. Monitor HR and BP keep MAP> 65mmHg 01/13- Heparin, ASA discontinued due to epistaxis 01/05 VLADIMIR( [employer])-left atrial thrombus EF 15-20%. Systolic function reduced. Diffuse hyperkinesis. 12/26 [facility] severe systolic dysfunction EF 1015%, mitral valve mild to moderate regurg, LAE, tricuspid Valve-mild to moderate regurg, small pericardial effusion, 12/19 cardiac cath left circumflex 90% occlusion Management per Cardiology -Dr. Jimenez 01/15 started on Coreg 6.25 mill grams by mouth twice a day. We'll restart Coreg at 3.125 twice a day as off vasopressors At home on Coreg 25 mg twice a day, aspirin 81 mg daily, hydralazine 25 mg twice a day and HCTZ25 mg by mouth daily Renal: Acute on chronic kidney disease stage IV Nephrology following-Dr. Hahn Monitor renal function, I/O's, avoid nephrotoxins. Receiving HD with goal removal 3L. Vascath placement Hemodialysis initiated 01/14. FEN/GI: Morbid obesity Hyperkalemia Hyperphosphatemia Tube feeds( Nepro @50 cc) on hold for high residuals. KUB abdomen 01/21: Non diagnostic study Prevacid for GI prophylaxis Bowel Colace/Senokot twice a day. On Reglan 5 every 8 and erythromycin 200 every 8 for bowel motility/prokinetic PhosLo 667 3 times a day Heme: Leukocytosis Normocytic anemia Thrombocytopenia Monitor CBC. Transfuse 3 units PRBCs on admission Weakly positive HIT panel-CLIFFORD is negative. Due to gross hematuria and epistaxis again all anticoagulants on hold currently. Hematology is following ID: Likely aspiration pneumonia 01/06 urine, sputum, blood cultures-NGTD 01/06-Legionella urine antigen negative 01/09 - bronchoscopy - yeast/ID to follow 01/12 - blood cultures 2 - no growth 01/20 - blood cultures 2 - pending Antibiotics per ID ( Cefepime/Flagyl) -Dr. Gage following, will continue with nasal packing -Monitor for signs of infections ( Fever, WBC) -Recent cultures- NGTD Endocrine: Close monitoring per ICU protocol-medium dose regimen -- SSI Accu-Cheks every 6 hours for glycemic control Prophylaxis: GI Prophylaxis Prevacid 30 mg at night DVT Prophylaxis -- SCDs, Lines: Peripheral IV's. 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 Time to perform other separately billable procedures was not included in the critical care time. Ari Betancourt MD January 22, 2017 10:07 Ari Betancourt MD January 22, 2017 10:07
--- NOTE | 2017-01-22 11:28 | HHI.PR ---
Addendum to Inpatient Note Addendum Reason: Additional Documentation Additional Information Case d.w . Clinical scenario reviewed. Now on HD. Nasal bleeding controlled. WBC ok No fevers All cultures negative. Treated as aspiration pneumonia complete course. Will sign off please call back if any change in clinical condition or questions. will communicate with family about ID plan. Gema Gage MD January 22, 2017 11:28
--- NOTE | 2017-01-22 14:03 | PD.ONC.PN ---
Subjective Subjective Remarks Afebrile overnight. Patient intubated. Sedated. Rhino-rockets remain in place. Argatroban remains on hold. Objective Data Date Time Temp Pulse Resp B/P Pulse Ox O2 Delivery O2 Flow Rate FiO2 01/22/17 13:31 96 80 01/22/17 11:00 96.7 77 16 101/48 99 103/61 01/22/17 11:00 60 01/22/17 11:00 95 Mechanical Ventilator 60 01/22/17 11:00 77 01/22/17 08:40 99 60 01/22/17 07:00 97.0 55 16 157/70 99 89/39 01/22/17 07:00 60 01/22/17 07:00 55 01/22/17 07:00 95 Mechanical Ventilator 60 01/22/17 04:09 96 60 01/22/17 04:00 97.0 53 16 124/69 99 144/67 01/22/17 04:00 52 01/22/17 04:00 99 Mechanical Ventilator 60 01/22/17 04:00 60 01/22/17 00:09 96 60 01/22/17 00:00 60 01/22/17 00:00 56 01/22/17 00:00 97.5 56 16 97/42 94 160/73 01/22/17 00:00 94 Mechanical Ventilator 60 01/21/17 23:15 93 Mechanical Ventilator 60 01/21/17 22:20 95 50 01/21/17 20:30 95 50 01/21/17 20:00 50 16 121/64 96 137/63 01/21/17 20:00 96 Mechanical Ventilator 50 01/21/17 20:00 50 01/21/17 20:00 50 01/21/17 17:34 99 50 01/21/17 16:15 98 50 01/21/17 15:00 97.6 53 16 99/49 97 136/60 01/21/17 15:00 53 01/21/17 15:00 97 Mechanical Ventilator 50 01/21/17 15:00 50 01/22/17 01/22/17 01/22/17 07:00 15:00 23:00 Intake Total 1861 ml Output Total 830 ml 3000 ml Balance 1031 ml -3000 ml Result Diagram: 01/22/1752901/22/17529 Laboratory Results Laboratory Tests Test 01/21/17 01/21/17 01/22/17 15:15 17:10 05:30 White Blood Count 11.0 TH/MM3 12.0 TH/MM3 Red Blood Count 2.75 MIL/MM3 3.23 MIL/MM3 Hemoglobin 8.0 GM/DL 9.4 GM/DL Hematocrit 24.3 % 28.2 % Mean Corpuscular Volume 88.3 FL 87.3 FL Mean Corpuscular Hemoglobin 29.2 PG 29.2 PG Mean Corpuscular Hemoglobin 33.0 % 33.4 % Concent Red Cell Distribution Width 16.4 % 16.6 % Platelet Count 60 TH/MM3 66 TH/MM3 Mean Platelet Volume 11.0 FL 11.0 FL Sodium Level 135 MEQ/L 133 MEQ/L Potassium Level 5.3 MEQ/L 5.6 MEQ/L Chloride Level 97 MEQ/L 95 MEQ/L Carbon Dioxide Level 20.6 MEQ/L 18.5 MEQ/L Anion Gap 17 MEQ/L 20 MEQ/L Blood Urea Nitrogen 163 MG/DL 169 MG/DL Creatinine 5.11 MG/DL 5.34 MG/DL Estimat Glomerular Filtration 11 ML/MIN 11 ML/MIN Rate Random Glucose 112 MG/DL 89 MG/DL Calcium Level 7.1 MG/DL 7.4 MG/DL Protein Corrected Calcium 8.4 MG/DL 8.3 MG/DL Total Protein 4.7 GM/DL 5.4 GM/DL Blood Type O POSITIVE Antibody Screen NEGATIVE Crossmatch Leukocyte-Reduced Red Blood Cells Blood Bank Comment Neutrophils (%) (Auto) 96.6 % Lymphocytes (%) (Auto) 0.8 % Monocytes (%) (Auto) 2.0 % Eosinophils (%) (Auto) 0.0 % Basophils (%) (Auto) 0.6 % Neutrophils # (Auto) 11.6 TH/MM3 Lymphocytes # (Auto) 0.1 TH/MM3 Monocytes # (Auto) 0.2 TH/MM3 Eosinophils # (Auto) 0.0 TH/MM3 Basophils # (Auto) 0.1 TH/MM3 CBC Comment AUTO DIFF Differential Comment AUTO DIFF CONFIRMED Platelet Estimate LOW Platelet Morphology Comment NORMAL Ovalocytes 1+ Prothrombin Time 13.4 SEC Prothromb Time International 1.2 RATIO Ratio Activated Partial 34.8 SEC Thromboplast Time Fibrinogen 445 mg/dL Lactic Acid Level 0.6 mmol/L Phosphorus Level 10.2 MG/DL Magnesium Level 2.7 MG/DL Total Bilirubin 0.6 MG/DL Aspartate Amino Transf 23 U/L (AST/SGOT) Alanine Aminotransferase 31 U/L (ALT/SGPT) Alkaline Phosphatase 55 U/L Albumin 2.2 GM/DL Lipase 170 U/L Culture Results Microbiology Date/Time Procedure Status Source Growth 01/20/17 09:23 Aerobic Blood Culture - Preliminary Resulted Blood Peripheral Gram Positive Cocci 01/20/17 09:23 Anaerobic Blood Culture - Preliminary Resulted Blood Peripheral NO GROWTH IN 2 DAYS 01/20/17 10:50 Aerobic Blood Culture - Preliminary Resulted Blood Peripheral NO GROWTH IN 2 DAYS 01/20/17 10:50 Anaerobic Blood Culture - Final Resulted Blood Peripheral QNS - SEE AEROBE REPORT 01/21/17 22:00 Gram Stain - Final Resulted Sputum Endotracheal 01/21/17 22:00 Sputum Culture Resulted Sputum Endotracheal Pending Imaging Studies Last 24 hours Impressions Chest X-Ray 01/22/17 0600 Signed Impressions: Service Date/Time: Sunday, January 22, 2017 04:31 - CONCLUSION: No appreciable change. Kaylah Schroeder MD Administered Medications Medications (Trade) Dose Ordered Sig/Claire Route PRN Reason Start Time Stop Time Status Last Admin Dose Admin Propofol (Diprivan 1000 Mg/100ml Inj) 100 ml @ 0 mls/hr TITRATE IV 01/05/17 21:45 01/21/17 19:16 Docusate Sodium (Colace Liq) 100 mg Q12HR PO 01/06/17 21:00 01/22/17 08:18 Sodium Chloride (NS Flush) 2 ml UNSCH PRN IV FLUSH FLUSH AFTER USING IV ACCESS 01/06/17 13:15 01/12/17 02:25 Sodium Chloride (NS Flush) 2 ml BID IV FLUSH 01/06/17 21:00 01/22/17 08:10 Chlorhexidine Gluconate (Chlorhexidine 2% Cloth) Taper DAILY@04 TOP 01/07/17 04:00 01/03/18 03:59 01/22/17 04:00 Dextrose (D50w (Vial) Inj) 25 ml UNSCH PRN IV PUSH HYPOGLYCEMIA-SEE COMMENTS 01/09/17 07:15 01/21/17 19:15 Insulin Aspart (NovoLOG SUPPLEMENTAL SCALE) 1 Q6HR SQ 01/10/17 06:00 01/20/17 00:07 Bisacodyl (Dulcolax Supp) 10 mg DAILY PRN RECTAL CONSTIPATION 01/10/17 09:15 Hold 01/10/17 09:56 Sennosides (Senna Liq) 8.8 mg BID PO 01/16/17 09:00 01/22/17 08:17 Glycerin (Glycerin Adult Supp) 2 gm BID PRN RECTAL CONSTIPATION 01/17/17 06:45 01/17/17 14:30 Amiodarone HCl (Cordarone) 200 mg Q12HR PO 01/17/17 09:00 01/22/17 08:18 Sodium Chloride DAILY IVF 01/17/17 12:30 01/22/17 08:17 Cisatracurium Besylate/Sodium Chloride (Nimbex Inj/NS 250 ml Inj) 250 ml @ 0 mls/hr TITRATE IV 01/17/17 14:30 01/22/17 08:07 Artificial Tears (Tears Naturale Opth Soln) 1 drop Q8HR EACH EYE 01/17/17 22:00 01/22/17 05:56 Chlorhexidine Gluconate 15 ml 15 ml BID@08,20 MT 01/17/17 20:00 01/22/17 08:10 Midazolam HCl 100 ml @ 0 mls/hr TITRATE IV 01/17/17 16:45 01/22/17 08:18 Fentanyl Citrate (fentaNYL DRIP) 250 ml @ 0 mls/hr TITRATE IV 01/17/17 16:45 01/22/17 08:18 Metoclopramide HCl (Reglan Inj) 5 mg Q8HR IV PUSH 01/18/17 06:45 01/22/17 05:57 Calcium Acetate (Phoslo) 667 mg TID PO 01/19/17 09:00 01/22/17 12:29 Lansoprazole (Prevacid Odt) 30 mg DAILY NG 01/19/17 09:00 01/22/17 08:17 Albumin Human (Albumin 25% Inj) 25 gm UNSCH PRN IV WITH DIALYSIS 01/19/17 08:15 01/19/17 15:17 Gentamicin Sulfate (Gentamicin (Dialysis) Inj) 20 mg UNSCH PRN IV WITH DIALYSIS 01/19/17 08:15 01/19/17 09:15 Epoetin Rizwan (Epogen Inj) 4,000 units UNSCH PRN IV WITH DIALYSIS 01/19/17 08:15 01/19/17 15:10 Methylprednisolone Sodium Succinate 40 mg 40 mg BID IV PUSH 01/20/17 09:00 01/22/17 08:17 Norepinephrine Bitartrate/Sodium Chloride (Levophed Inj/NS 250 ml Inj) 250 ml @ 0 mls/hr TITRATE IV 01/20/17 08:00 01/20/17 10:21 Erythromycin Ethylsuccinate (Ees 200 Mg/5 ml Liq) 200 mg Q8HR PO 01/21/17 14:00 01/24/17 13:59 01/22/17 05:57 Carvedilol 3.125 mg 3.125 mg Q12HR PO 01/21/17 09:00 01/22/17 08:17 Epoprostenol Sodium/Sodium Chloride (Flolan (30,000 Ng/ml) Neb/NS Inj) 100 ml @ 8 mls/hr Q8H NEB 01/22/17 08:00 01/22/17 15:59 01/22/17 08:06 Objective Remarks GENERAL: Intubated, sedated male lying supine in bed SKIN: Warm and dry. HEAD: Normocephalic. EYES: No injection or drainage. NECK: Supple, trachea midline. CARDIOVASCULAR: IRR RESPIRATORY:scattered rhonchi. on mechanical ventilation GASTROINTESTINAL: Abdomen nondistended. EXTREMITIES: No cyanosis NEUROLOGICAL: intubated, sedated Assessment/Plan Problem List: (1) Thrombosis of left atrium without antecedent myocardial infarction Status: Acute Plan: --on Argatroban (on hold at present d/t bleeding) until current bag finished then ok to resume UFH (2) Thrombocytopenia Status: Acute Plan: --likely d/t bleeding --CLIFFORD negative (3) Epistaxis Status: Acute Plan: --Rhino rockets replaced 01/21 after being removed 01/20 --anticoagulation on hold Assessment 71y/o male admitted in afib w/RVR. 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 --hematoma from central line placement in the right neck --epistaxis requiring nasal plugs Plan 1. monitor CBC 2. continue to hold anticoagulation. Attending Statement Discussed above, platelet counts slight improve, monitor for bleeding. Priya Fraga January 22, 2017 14:03 Meghan Torres MD January 22, 2017 23:47
[2017-01-22] MEDS ORDERED: EPOPROSTENOL NEB SOLUTION 10 NG/KG/MIN 100 ML NEB SCH ×2 (16:00)
--- NOTE | 2017-01-22 18:37 | HHI.PR ---
Subjective Remarks Sedated on Vent support , Now on PEEP 12. FIO2 at 60%. was dialyzed. CXR still shows pulmonary edema. No active bleeding. On Roto bed. Objective Vital Signs Date Time Temp Pulse Resp B/P Pulse Ox O2 Delivery O2 Flow Rate FiO2 01/22/17 15:25 70 01/22/17 15:25 95 Mechanical Ventilator 60 01/22/17 15:25 74 01/22/17 15:25 97.8 74 16 117/60 98 113/62 01/22/17 13:31 96 80 01/22/17 11:00 96.7 77 16 101/48 99 103/61 01/22/17 11:00 60 01/22/17 11:00 95 Mechanical Ventilator 60 01/22/17 11:00 77 01/22/17 08:40 99 60 01/22/17 07:00 97.0 55 16 157/70 99 89/39 01/22/17 07:00 60 01/22/17 07:00 55 01/22/17 07:00 95 Mechanical Ventilator 60 01/22/17 04:09 96 60 01/22/17 04:00 97.0 53 16 124/69 99 144/67 01/22/17 04:00 52 01/22/17 04:00 99 Mechanical Ventilator 60 01/22/17 04:00 60 01/22/17 00:09 96 60 01/22/17 00:00 60 01/22/17 00:00 56 01/22/17 00:00 97.5 56 16 97/42 94 160/73 01/22/17 00:00 94 Mechanical Ventilator 60 01/21/17 23:15 93 Mechanical Ventilator 60 01/21/17 22:20 95 50 01/21/17 20:30 95 50 01/21/17 20:00 50 16 121/64 96 137/63 01/21/17 20:00 96 Mechanical Ventilator 50 01/21/17 20:00 50 01/21/17 20:00 50 I/O 01/21/17 01/21/17 01/21/17 01/22/17 01/22/17 01/22/17 06:59 14:59 22:59 06:59 14:59 22:59 Intake Total 1436 ml 1389 ml 1861 ml 1321 ml Output Total 840 ml 590.0 ml 830 ml 3000 ml 150 ml Balance 596 ml 799.0 ml 1031 ml -3000 ml 1171 ml Intake Oral 0 ml 0 ml IV Total 1193 ml 1229 ml 1540 ml 1051 ml Tube Feeding 243 ml 60 ml 71 ml 70 ml Packed Cells 250 ml Tube Irrigant 200 ml Other 100 ml Output Urine Total 140 ml 200 ml 180 ml 50 ml Stool Total 100 ml 100 ml 100 ml 100 ml Gastric Drainage Total 600 ml 240 ml 550 ml Tube Feeding Residual Discard 50.0 ml Hemodialysis 3000 ml Result Diagram: 01/22/1752901/22/17529 Objective Remarks GENERAL: This is an obese, elderly man who is intubated, sedated, assisting the ventilator. HEENT: Head is normocephalic. Pupils are reactive. NECK: Supple with no venous distention. Trachea is midline. CHEST: Decreased breath sounds with crackles at both lung bases.Occ wheeze heard HEART: The heart sounds are irregular S1-S2. No murmur. ABDOMEN: Soft. Obese without masses. No organomegaly. EXTREMITIES: 1 + edema. Decreased peripheral pulses. Reflexes are not elicited. The patient is sedated. SKIN: Dry and cool. Assessment and Plan Assessment and Plan IMPRESSION 1. Hypoxic respiratory failure. 2. Left lower lobe atelectasis and possible pneumonia with aspiration. 3. Left pleural effusion resolved. 4. Cardiomyopathy and congestive heart failure. 5. Obstructive sleep apnea. 6. Diabetes mellitus. 7. Atrial fibrillation. 8. Nasopharyngeal bleed Plan : 1. Wean FIO2 to keep sat >90. 2. Wean PEEP to 10 CM, FIO2 to 55 % 3. Antibiotics per ID. 4. CBC CXR ,BMP in am. 5. Nebs qid , duoneb. 6. Lavage and suction trach 7. Tube feeds at 50 CC 8. Solumedrol 20 mg IV q12h Julius Burch MD January 22, 2017 18:37
[2017-01-23] VITALS (18 sets, daily range): BP systolic 100–139; BP diastolic 48–67; PULSE 52–129; RESP 16–17; TEMP 98–98.8; O2SAT 92–99
[2017-01-23] MEDS: CHLORHEXIDINE GLUCONATE 2 % 1 PACK (2 CLOTHS) TOP SCH (03:40)
[2017-01-23] MEDS: fentaNYL DRIP 250 ML IV SCH ×2 (03:41→21:21)
[2017-01-23] MEDS: CISATRACURIUM INJ 100 MG in SODIUM CHLOR 0.9% 250 ML INJ 240 ML IV SCH ×3 (03:41→21:21)
[2017-01-23] MEDS: RESP: LEVALBUTEROL HYDROCHLORIDE 0.63 MG/3 ML NEB (SCH) NEB ×4 (03:46→20:45)
[2017-01-23] MEDS: RESP: IPRATROPIUM 0.5 MG/2.5 ML NEB NEB SCH ×4 (03:46→20:45)
[2017-01-23] MEDS: ARTIFICIAL TEARS OPTH SOLN 15 ML BTL EACH EYE SCH ×3 (05:39→21:24)
[2017-01-23] MEDS: METOCLOPRAMIDE HCL 10 MG/2 ML VIAL IV PUSH SCH ×3 (05:39→21:21)
[2017-01-23] MEDS: INSULIN ASPART SUPPLEMENTAL SCALE SQ SCH ×4 (05:39→18:00)
[2017-01-23] MEDS: ERYTHROMYCIN ETHYLSUCCINATE 200 MG/5 ML SUSP 100 ML BOTTLE PO SCH ×3 (05:39→21:24)
[2017-01-23 05:47] LABS: BICARBONATE 20.1 MEQ/L (21.0-32.0); POTASSIUM 5.4 MEQ/L (3.5-5.1)
--- NOTE | 2017-01-23 05:47 | RADRPT ---
EXAM DATE/TIME: 01/23/2017 05:04 [facility] COMPARISON: CHEST SINGLE AP, January 22, 2017, 4:31. INDICATIONS : Shortness of breath. MEDICAL HISTORY : Hypertension. SURGICAL HISTORY : Coronary artery stent. ENCOUNTER: Subsequent ACUITY: 1 month PAIN SCORE: 0/10 LOCATION: Bilateral chest FINDINGS: NG tube is present with tip in the stomach. ET tube is present with tip overlapping approximately 4 c m above the saturnino. Left subclavian line is present with tip overlapping the expected region of the b rachiocephalic vein. Bibasilar opacities are present may be due to a combination of consolidation and or pleural effusion. Pulmonary edema is also seen not significantly changed. CONCLUSION: No appreciable change. Kaylah Schroeder MD on January 23, 2017 at 5:44 Board Certified Radiologist. This report was verified electronically.
[2017-01-23 05:50] LABS: APTT (PATIENT) 28.1 SEC (24.3-30.1); AUTOMATED NEUTROPHIL # 8.9 TH/MM3 (1.8-7.7); BASOPHIL % 0.1 % (0.0-2.0); EOSINOPHIL % 0.1 % (0.0-4.0); HEMATOCRIT 23.3 % (39.0-51.0); INTERNATIONAL NORMALIZED RATIO 1.1 RATIO; LYMPH % 1.2 % (9.0-44.0); LYMPHOCYTE # 0.1 TH/MM3 (1.0-4.8); MEAN CELL VOLUME 86.5 FL (80.0-100.0); MEAN CORPUSCULAR HEMOGLOBIN 29.8 PG (27.0-34.0); MEAN CORPUSCULAR HGB CONC 34.4 % (32.0-36.0); MONO % 3.4 % (0.0-8.0); NEUT % 95.2 % (16.0-70.0); PLATELET COUNT 63 TH/MM3 (150-450); PROTHROMBIN TIME - PATIENT 12.7 SEC (9.8-11.6); RED BLOOD COUNT 2.69 MIL/MM3 (4.50-5.90); RED CELL DISTRIBUTION WIDTH 16.8 % (11.6-17.2); WHITE BLOOD COUNT 9.3 TH/MM3 (4.0-11.0)
[2017-01-23 05:58] LABS: HEMO FLAGS AUTO DIFF
[2017-01-23 06:06] LABS: CALCIUM-PROTEIN CORRECTED 8.5 MG/DL (8.5-10.1)
[2017-01-23 07:09] LABS: PLATELET ESTIMATE SMEAR LOW (NORMAL); PLATELET MORPHOLOGY NORMAL (NORMAL); SCAN/DIFF AUTO DIFF CONFIRMED
[2017-01-23] MEDS: SENNOSIDES SYRUP 8.8 MG/5 ML CUP PO SCH ×2 (08:52→21:20)
[2017-01-23] MEDS: DOCUSATE SODIUM 100 MG/10 ML UDC PO SCH ×2 (08:52→21:19)
[2017-01-23] MEDS: CARVEDILOL 3.125 MG TAB PO SCH ×2 (08:53→21:20)
[2017-01-23] MEDS: methylPREDNISolone SOD SUCC 40 MG/1 ML VIAL IV PUSH SCH ×2 (08:53→21:20)
[2017-01-23] MEDS: CHLORHEXIDINE 0.12% (ORAL KIT) 15 ML CUP MT SCH ×2 (08:53→21:19)
[2017-01-23] MEDS: CALCIUM ACETATE 667 MG CAP PO SCH ×3 (08:54→19:05)
[2017-01-23] MEDS: AMIODARONE 200 MG TAB PO SCH ×2 (08:54→21:20)
[2017-01-23] MEDS: LANSOPRAZOLE SOLUTAB 30 MG TAB NG SCH (08:54)
[2017-01-23] MEDS: SODIUM CHLORIDE 0.9% FLUSH 10 ML FLUSH IV FLUSH SCH ×2 (08:55→21:20)
[2017-01-23] MEDS: SODIUM CHLORIDE 0.9% FLUSH 10 ML FLUSH IVF SCH (08:57)
--- NOTE | 2017-01-23 10:42 | HHI.NPPN ---
Subjective General Problems: Anemia, Edema, Heart Disease Renal Failure: Acute History of Present Illness 71-year-old the white male the who is transferred from [facility] to [facility] due to atrial fibrillation with fast ventricular response, he was in the heart catheterization lab and became unstable has to intubated the patient has chronic kidney disease, Cardiomyopathy ejection fraction of only 15% and has severe dilated cardiomyopathy with the clot in left atrium he is on heparin drip and currently on ventilator. Additional Remarks Patient remain on the vent. and sedated, intubated or Roto prone bed, on 60% Fio2. Objective Data Data 01/22/17 01/23/17 18:59 06:59 Intake Total 1321 ml 1775 ml Output Total 3150 ml 150 ml Balance -1829 ml 1625 ml Intake Oral 0 ml IV Total 1051 ml 1468 ml Tube Feeding 70 ml 177 ml Tube Irrigant 200 ml Other 130 ml Output Urine Total 50 ml 125 ml Stool Total 100 ml 25 ml Hemodialysis 3000 ml Vital Signs Date Time Temp Pulse Resp B/P Pulse Ox O2 Delivery O2 Flow Rate FiO2 01/23/17 09:46 99 60 01/23/17 04:40 53 01/23/17 04:00 98.5 56 16 136/54 93 123/56 01/23/17 03:46 97 60 01/23/17 03:38 90 Mechanical Ventilator 60 01/23/17 03:38 60 01/23/17 00:39 93 60 01/23/17 00:00 98.0 62 16 92 128/57 01/22/17 23:53 61 01/22/17 23:35 96 60 01/22/17 23:18 90 Mechanical Ventilator 60 01/22/17 23:18 60 01/22/17 20:38 94 60 01/22/17 20:00 98.0 78 16 98 122/57 01/22/17 19:30 60 01/22/17 19:30 84 01/22/17 19:30 95 Mechanical Ventilator 60 01/22/17 15:25 70 01/22/17 15:25 95 Mechanical Ventilator 60 01/22/17 15:25 74 01/22/17 15:25 97.8 74 16 117/60 98 113/62 01/22/17 13:31 96 80 01/22/17 11:00 96.7 77 16 101/48 99 103/61 01/22/17 11:00 60 01/22/17 11:00 95 Mechanical Ventilator 60 01/22/17 11:00 77 -: 01/23/17 0510 01/23/17 0510 Physical Exam General Appearance: Well Developed Eyes Eye Exam: Pupils Equal Throat Throat Exam: Oral Mucosa Doyle & Moist Pulmonary Resp Exam: Rhonchi, Decreased Bases, Diminished Breath Sounds Cardiology CV Exam: Arrhythmia Gastrointestinal/Abdomen GI Exam: Soft, Non-Tender, Distended Extremeties Extremities Exam: Moderate Edema, Pitting Edema, Dependent Edema Neurologic Neuro Exam: Sedated Assessment/Plan Problem List: (1) Acute renal failure Plan: Patient urine out put is lower He has poor ejection fraction and is intubated Severe cardiomyopathy prognosis is guarded. hemodialysis to be done today UF 3 L last UF 3 L Seen by Hematology, now off Argatroban. Urine out put remain low. BUN and Creatinine high, K is 5.4 CXR Pul edema (2) CKD (chronic kidney disease) stage 4, GFR 15-29 ml/min Plan: Has high creatinine kidney ultrasound reviewed (3) CHF (congestive heart failure) Plan: Severe cardiomyopathy EF 15% (4) Atrial fibrillation with rapid ventricular response Plan: Has a blood clot in LA appendage Problem Qualifiers (1) CHF (congestive heart failure): Christa Hahn MD January 23, 2017 10:42
--- NOTE | 2017-01-23 11:14 | HHI.CCPN ---
Subjective Remarks/Hospital Course This is a 71-year-old gentleman that presented to [facility] secondary to dyspnea and atrial fibrillation with RVR. The patient has a medical history significant for obesity and hypertension. During his hospitalization at [facility], the patient underwent an echocardiogram which showed severe systolic dysfunction with an ejection fraction of 1015 % the patient then underwent a cardiac catheterization showing significance with left circumflex 90%. The patient underwent multiple attempts of unsuccessful synchronized cardioversion. The patient also underwent medical management with beta blockers, and calcium channel blockers that were also unsuccessful. The patient was transferred to [facility] for cardiac ablation with Dr. Jimenez. The patient was scheduled for cardiac ablation, the procedure was canceled. The patient required emergent intubation and required ventilator management a VLADIMIR was performed showing a clot in the left atrial appendage. The patient was placed on IV Cardizem, and an amiodarone infusion. Critical Care medicine was consulted for management. 01/06: Tmax 97.4. The patient remained on elevated vent settings with FiO2 of 1.0 overnight, PEEP requirements were increased to 8, to maintain a PaO2 of greater than [address] scan of the chest was obtained which noted bilateral effusions small, basilar consolidations right worse than the left, and a loculated area representing a possible pneumonia process, empyema, as well as aspiration or just loculated fluid as well as a small pericardial effusion. The patient continues on Cardizem and amiodarone infusions with a heart rate overnight 80s -115. The patient's vasopressor requirements of phenylephrine diminished to 20 mcgs. 01/07: Tmax 99.2. Yesterday the central line was placed for vasoactive medications and CVP monitoring, small hematoma noted near the right IJ area soft no compression of major vessels, with resolution of bleeding in that area. Phenylephrine was discontinued yesterday. The patient heart rate remains today [id number]. Cardizem infusion has been discontinued in the setting of EF of 10-15%. Esmolol infusion to be initiated this a.m.. Coumadin was initiated last night now placed on hold due to patient bleeding from nasopharynx and oropharynx. INR currently 1.2. Plan for CT thorax tomorrow, with possible IR intervention versus CVT consultation for possible empyema the patient will remain on heparin infusion, and transition onto Coumadin after any potential procedures to be initiated. Chest x-ray slightly improved FiO2 decreasing now 70%. Sedation vacation yesterday revealed GCS 11 T, patient alert responsive following commands. With initiation of antibiotics, leukocytosis resolved. ID consulted Dr. Gage. Blood cultures are pending. 01/08: Patient's heart rate 110-[address] scan of the chest imaging revealed fluid. Plan for thoracentesis and and studies of pleural fluid , this afternoon. The patient remains on amiodarone and heparin infusions, per cardiology. Heparin held, for thoracentesis this afternoon, and then will be resumed. The patient was maintained on CPAP trial for approximately one hour yesterday. During sedation vacation patient was alert following commands recognizing family. Plan to resume CPAP trials this afternoon post thoracentesis. 01/09: The patient underwent CT-guided thoracentesis yesterday , on the right side noted 400 cc of fluid was removed , with specimens ordered to be sent for evaluation .This morning chest x-ray performed showing almost complete opacification of the left lung. FiO2 requirements increase patient on FiO2 of 80%, O2 sat 94%. Left chest ultrasound obtained revealing no fluid. Consent obtained BAL performed, revealing emanating from the nearest previously ( patient was noted to have epistaxis with initiation of heparin on 01/06). Blood clots noted in left lung upon visualization with bronchoscopy, saline lavage applied, minimal blood clots removed. The patient was initiated on Mucomyst 10% , and pulmonology was consulted. Dr. Tasia Lama following. The patient shows no signs or evidence of bleeding actively, plan to consult ENT if signs of active bleeding become evident. Hemoglobin remains stable.The patient converted into sinus rhythm is today afternoon. Cardiology management of medications, IV amiodarone discontinued this afternoon. 01/10: Tmax 99.0. Chest x-ray shows slight improvement of left lung today. Plan for repeat bronchoscopy per Dr. Burch this a.m, and the patient continues on Mucomyst. The patient's cardiac rhythm reverted to A. fib last evening, amiodarone IV infusion reinstituted per Dr. Jimenez. 01/11: TMax 100.0. Much improved chest x-ray this morning. The patient continues in A. fib with a rate of 120, he continues on amiodarone, heparin infusion per cardiology. No evidence of active bleeding. 5/12 Patient Remains sedated with Diprivan, intubated. T:99.9. On Neosyn 15 mics , heparin and Amio drips. In Afib with RRV. Patient s/p repeat bronch with BAL yesterday by Dr. Burch and ETT replacement by Dr. Sanchez. On PC/AC with PEEP:14 , FIO2 100%. 01/13: TMax 100.2. Last night the nurse reported that the patient had a small amount of epistaxis, and blood in the oropharynx noted. The area continued to bleed during the night. ENT has been consulted. Heparin has been placed on hold , ASA has been discontinued in the setting of acute renal failure. The patient continues on amiodarone infusion , heart rate 120's. Neosynephrine has been discontinued, and Levophed instituted. Creatinine noted to be 4.5. As per report , states patient does not want dialysis. The patient continues on elevated PEEP of 14. 5/14: Heparin was discontinued yesterday in the setting of continued bleeding in the nasal/ oropharyngeal region. ENT was consulted and nasal packing was applied. During the night the patient still had small noted amount of bleeding from the oropharyngeal area plan today for oropharyngeal packing. Hgb 9, will transfuse .The patient was placed on norepinephrine for currently at 1-2 mcgs per minute. PEEP has been decreased to 12, with adequate oxygenation a PaO2 of 71. 5/15: Tmax 99.0. The patient continues to be anemic and thrombocytopenic, contributory factors being uremia. The patient's /family decided to pursue hemodialysis at this point. The patient received 1 unit of packed red blood cells yesterday. The patient was initiated on dialysis yesterday afternoon, with approximately 3 L removed. Nasal gauze packing removed and placement of nasal balloons by ENT yesterday. Oral gauze packing to be removed today. The patient received 2 separate doses of digoxin, A. fib heart rate ranging 80- < 120. The patient continues to have high ventilatory requirements, FiO2 was increased throughout the night to currently 80%, to maintain O2 sat greater than 92%. 01/16: FiO2 at 85%. Large clots removed from oropharynx overnight. Transfused 2 units PRBCs yesterday. No bowel movement. Tolerating tube feeds at 40 cc now with Nepro 01/17: Maximum 100.6. CURRENT TEMPERATURE 98.1. Central line pulled out yesterday. Flolan initiated yesterday and FiO2 down to 65%. Tolerating tube feeds. No bowel movement. Arousable weakly follow commands yesterday 01/18: Tmax 99.8. Currently afebrile. Initially, hemoptysis with desaturation requiring bronchoscopy. See bronchoscopy note. Roto-Rest bed ordered. FiO2 from 100-70% currently. On Nimbex drip. No BM. Tolerating tube feeds. 01/19: Afebrile. FiO2 down to 40%. We will attempt a wean Flolan today. On Nimbex drip. Positive BM yesterday. Tolerating tube feeds. 01/20: FiO2 back to 100%. Flolan "fell off "overnight. Ventilator adjusted back to 100%. Flolan reinstituted. Chest x-ray and ABG pending. Tolerating tube feeds. Positive BM. Afebrile. Subjective: 01/21: Intolerant of tube feeding. KUB pending. Afebrile. Bleeding from bilateral nares and Alanis overnight. Argatroban has been held. Positive BM. 01/22 Patient is sedated with Fentanyl , versed in addition he is on Nimbex. Receiving HD. TF on hold for high residuals. 01/23 Patient is on Roto prone bed sedated and intubated. s/p HD yesterday with removal 3L. On Nimbex, afebrile. Objective Vital Signs Date Time Temp Pulse Resp B/P Pulse Ox O2 Delivery O2 Flow Rate FiO2 01/23/17 10:40 99 50 01/23/17 04:40 53 01/23/17 04:00 98.5 16 136/54 123/56 01/23/17 03:38 Mechanical Ventilator Intake and Output 01/22/17 01/22/17 01/23/17 08:00 16:00 00:00 Intake Total 1861 ml 1321 ml Output Total 830 ml 3000 ml 150 ml Balance 1031 ml -3000 ml 1171 ml Result Diagram: 01/23/17 0510 01/23/17 0510 Other Results Laboratory Tests Test 01/23/17 05:10 White Blood Count 9.3 TH/MM3 Red Blood Count 2.69 MIL/MM3 Hemoglobin 8.0 GM/DL Hematocrit 23.3 % Mean Corpuscular Volume 86.5 FL Mean Corpuscular Hemoglobin 29.8 PG Mean Corpuscular Hemoglobin 34.4 % Concent Red Cell Distribution Width 16.8 % Platelet Count 63 TH/MM3 Mean Platelet Volume 10.8 FL Neutrophils (%) (Auto) 95.2 % Lymphocytes (%) (Auto) 1.2 % Monocytes (%) (Auto) 3.4 % Eosinophils (%) (Auto) 0.1 % Basophils (%) (Auto) 0.1 % Neutrophils # (Auto) 8.9 TH/MM3 Lymphocytes # (Auto) 0.1 TH/MM3 Monocytes # (Auto) 0.3 TH/MM3 Eosinophils # (Auto) 0.0 TH/MM3 Basophils # (Auto) 0.0 TH/MM3 CBC Comment AUTO DIFF Differential Comment AUTO DIFF CONFIRMED Platelet Estimate LOW Platelet Morphology Comment NORMAL Prothrombin Time 12.7 SEC Prothromb Time International 1.1 RATIO Ratio Activated Partial 28.1 SEC Thromboplast Time Fibrinogen 366 mg/dL Sodium Level 135 MEQ/L Potassium Level 5.4 MEQ/L Chloride Level 98 MEQ/L Carbon Dioxide Level 20.1 MEQ/L Anion Gap 17 MEQ/L Blood Urea Nitrogen 142 MG/DL Creatinine 4.92 MG/DL Estimat Glomerular Filtration 12 ML/MIN Rate Random Glucose 107 MG/DL Calcium Level 7.2 MG/DL Protein Corrected Calcium 8.5 MG/DL Total Protein 4.8 GM/DL Imaging Last Impressions Chest X-Ray 01/23/17 0600 Signed Impressions: Service Date/Time: Monday, January 23, 2017 05:04 - CONCLUSION: No appreciable change. Kaylah Schroeder MD Abdomen X-Ray 01/21/17 0000 Signed Impressions: Service Date/Time: Saturday, January 21, 2017 08:41 - CONCLUSION: Nondiagnostic study. Gurvinder Collier MD Renal Ultrasound 01/09/17 0000 Signed Impressions: Service Date/Time: Monday, January 09, 2017 13:56 - CONCLUSION: 1. Right kidney is sonographically normal. 2. Benign-appearing 2.4 x 1.5 cm cortical cyst in the midpole of the left kidney. 3. Subcentimeter echogenic, non-shadowing foci in the midpole of the left kidney would be unusual for stones and may represent ectopic hilar fat. No hydronephrosis. 4. Urinary bladder is decompressed with a Alanis catheter. Douglas Ward MD Chest Ultrasound 01/09/17 0000 Signed Impressions: Service Date/Time: Monday, January 09, 2017 08:18 - CONCLUSION: No left-sided pleural effusion. The abnormality in the left chest on chest radiograph is likely related to mucous plugging. When patient had a CT scan yesterday the left lung was well aerated. Edgardo Mayorga MD Chest CT 01/08/17 0600 Signed Impressions: Service Date/Time: Sunday, January 08, 2017 08:46 - CONCLUSION: Massive cardiomegaly with panchamber enlargement extensive coronary calcifications. Stable trace pericardial effusion. Increasing bibasilar consolidative changes with minimal bilateral pleural effusions.. Rhys Fritz MD FACR Thoracentesis 01/08/17 0000 Signed Impressions: Service Date/Time: Sunday, January 08, 2017 16:08 - CONCLUSION: Uncomplicated CT-guided thoracentesis on the right. The left sided thoracentesis was not performed as there was no significant left pleural fluid. The abnormality on most recent chest x-ray was secondary to mucous plugging and left sided atelectasis. Edgardo Mayorga MD Objective Remarks GENERAL: 71-year-old male, critically ill-appearing obese male resting in rotarest bed SKIN: Warm and dry. No rash HEAD: Atraumatic. Normocephalic. EYES: Pupils equal and round, 3mm and reactive. No scleral icterus. No injection or drainage. ENT: Bilateral Rhino Rocket newly placed . Positive blood from mouth with suctioning NECK: Trachea midline. Unable to assess JVD secondary to body habitus. Large right-sided neck hematoma without midline shift. Evolving ecchymoses. Left subclavian central line is clean dry and intact CARDIOVASCULAR: Tachycardia, IR. S1, S2 no S4 without murmur RESPIRATORY: Diminished breath sounds throughout. Few crackles in bases bilaterally. Breath sounds equal bilaterally. GASTROINTESTINAL: Abdomen soft, obese non-tender, nondistended. I Magana bowel sounds MUSCULOSKELETAL: Extremities with 1+ peripheral edema. No obvious deformities. Posterior tibialis is palpable bilaterally. Right femoral Vas-Cath is clean dry and intact NEUROLOGICAL: Intubated and sedated. Follows commands moving extremities 4, when off sedation documented last Sunday. Date of Insertion: January 05, 2017 Date of Insertion: January 17, 2017 Line: Central Venous Catheter Side: Left Location: Subclavian, Jugular A/P Assessment and Plan Neuro/Psych: Epistaxis Continue with Fentanyl and Versed infusion for sedation in addition patient iso n Nimbex. Maintain [id number] 2 out of 4/BIS 40-60 Goal of RASS -5 01/07 No active signs of bleeding. Epistaxis resolved 01/12 New onset epistaxis, heparin discontinued Epistaxis-ENT consulted-nasal balloons in situ maintain balloons until 01/20 per ENT recommendation. Removed 01/20 but resumed bleeding so replaced yesterday - 01/21 ENT following - Dr. Byrd. Respiratory: Acute hypoxic respiratory failure Left lung consolidation 2/2 previous event of epistaxis, clotted blood left lung -resolved SONU Probable aspiration Possible multilobar [id number] Bilateral pleural effusions Continue with vent support keep sat >92% On PC/AC RR 16, IP:14, IT:1.50, PEEP;12, FIO2 60, decrease FIO2 as tolerated, Flolan currently 50 ng/kg per minute. Continue Currently on Xopenex and Atrovent aerosols every 6 hours ICU vent bundle. Pulmonology following- Dr. Burch Solu-Medrol 40 mg IV BID, off Flolan 01/08-right CT-guided thoracentesis-400 cc removed, sent for cytology and cultures s/p bronch 01.11 by- Dr. Burch for blood clots left lung Status post bronch 01/17 by guardian family member - bloody mucous plug at saturnino/mainstem section cleared. No obvious source of bleeding. CV: A. fib with RVR Left atrial appendage thrombus Cardiomyopathy Acute Systolic CHF Hypertension Dyslipidemia On Amiodarone 200 mg twice a day, Coreg 3.125mg BID. 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 Systolic function reduced. Diffuse hyperkinesis. 12/26 [facility] severe systolic dysfunction EF 1015%, mitral valve mild to moderate regurg, LAE, tricuspid Valve-mild to moderate regurg, small pericardial effusion, 12/19 cardiac cath left circumflex 90% occlusion Management per Cardiology -Dr. Jimenez 5/15 started on Coreg 6.25 mill grams by mouth twice a day. We'll restart Coreg at 3.125 twice a day as off vasopressors At home on Coreg 25 mg twice a day, aspirin 81 mg daily, hydralazine 25 mg twice a day and HCTZ25 mg by mouth daily Renal: Acute on chronic kidney disease stage IV Nephrology following-Dr. Hahn Monitor renal function, I/O's, avoid nephrotoxins. s/p HD with removal 3L on 01/22 Vascath placement Hemodialysis initiated 01/14. FEN/GI: Morbid obesity Hyperkalemia Hyperphosphatemia Tube feeds( Nepro @50 cc) on hold for high residuals. KUB abdomen 01/21: Non diagnostic study Prevacid for GI prophylaxis Bowel Colace/Senokot twice a day. On Reglan 5 every 8 and erythromycin 200 every 8 for bowel motility/prokinetic PhosLo 667 3 times a day Heme: Leukocytosis Normocytic anemia Thrombocytopenia Monitor CBC. Transfused 3 units PRBCs on admission Weakly positive HIT panel-CLIFFORD is negative. Due to gross hematuria and epistaxis again all anticoagulants on hold currently. Hematology is following ID: Likely aspiration pneumonia 01/06 urine, sputum, blood cultures-NGTD 01/06-Legionella urine antigen negative 01/09 - bronchoscopy - yeast/ID to follow 01/12 - blood cultures 2 - no growth 01/20 - blood cultures 2 - pending Off ID per ID ( s/p Cefepime/Flagyl) -Dr. Gage following, -Monitor for signs of infections ( Fever, WBC) -Recent cultures- NGTD Endocrine: Close monitoring per ICU protocol-medium dose regimen -- SSI Accu-Cheks every 6 hours for glycemic control Prophylaxis: GI Prophylaxis Prevacid 30 mg at night DVT Prophylaxis -- SCDs, Lines: Peripheral IV's. 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 Time to perform other separately billable procedures was not included in the critical care time. Ari Betancourt MD January 23, 2017 11:11
[2017-01-23] MEDS: EPOETIN ALFA 4,000 UNITS/ML VIAL IV PRN (15:33)
[2017-01-23] MEDS: MIDAZOLAM 100 MG/ML INJ 100 ML IV SCH (15:41)
[2017-01-23] MEDS: GENTAMICIN SULFATE (DIALYSIS USE ONLY) 20 MG/2 ML VIAL IV PRN (17:16)
--- NOTE | 2017-01-23 19:09 | PD.ONC.PN ---
Subjective Subjective Remarks Family at bedside. Tachycardic again HR 120's temporally related to dialysis. Objective Data Date Time Temp Pulse Resp B/P Pulse Ox O2 Delivery O2 Flow Rate FiO2 01/23/17 18:15 95 50 01/23/17 17:40 94 40 01/23/17 16:00 50 01/23/17 16:00 129 01/23/17 16:00 94 Mechanical Ventilator 50 01/23/17 16:00 98.5 129 16 94 132/67 01/23/17 13:10 94 40 01/23/17 12:00 98.6 52 17 108/58 98 139/64 01/23/17 12:00 52 01/23/17 11:59 97 40 01/23/17 11:00 40 01/23/17 11:00 97 Mechanical Ventilator 50 01/23/17 10:40 99 50 01/23/17 09:46 99 60 01/23/17 08:00 60 01/23/17 08:00 57 01/23/17 08:00 94 Mechanical Ventilator 60 01/23/17 08:00 98.4 60 16 119/67 94 120/56 01/23/17 04:40 53 01/23/17 04:00 98.5 56 16 136/54 93 123/56 01/23/17 03:46 97 60 01/23/17 03:38 90 Mechanical Ventilator 60 01/23/17 03:38 60 01/23/17 00:39 93 60 01/23/17 00:00 98.0 62 16 92 128/57 01/22/17 23:53 61 01/22/17 23:35 96 60 01/22/17 23:18 90 Mechanical Ventilator 60 01/22/17 23:18 60 01/22/17 20:38 94 60 01/22/17 20:00 98.0 78 16 98 122/57 01/22/17 19:30 60 01/22/17 19:30 84 01/22/17 19:30 95 Mechanical Ventilator 60 01/23/17 01/23/17 01/23/17 06:59 14:59 22:59 Intake Total 1775 ml 1239 ml Output Total 150 ml 3435 ml Balance 1625 ml -2196 ml Result Diagram: 01/23/17 0510 01/23/17 0510 Laboratory Results Laboratory Tests Test 01/23/17 05:10 White Blood Count 9.3 TH/MM3 Red Blood Count 2.69 MIL/MM3 Hemoglobin 8.0 GM/DL Hematocrit 23.3 % Mean Corpuscular Volume 86.5 FL Mean Corpuscular Hemoglobin 29.8 PG Mean Corpuscular Hemoglobin 34.4 % Concent Red Cell Distribution Width 16.8 % Platelet Count 63 TH/MM3 Mean Platelet Volume 10.8 FL Neutrophils (%) (Auto) 95.2 % Lymphocytes (%) (Auto) 1.2 % Monocytes (%) (Auto) 3.4 % Eosinophils (%) (Auto) 0.1 % Basophils (%) (Auto) 0.1 % Neutrophils # (Auto) 8.9 TH/MM3 Lymphocytes # (Auto) 0.1 TH/MM3 Monocytes # (Auto) 0.3 TH/MM3 Eosinophils # (Auto) 0.0 TH/MM3 Basophils # (Auto) 0.0 TH/MM3 CBC Comment AUTO DIFF Differential Comment AUTO DIFF CONFIRMED Platelet Estimate LOW Platelet Morphology Comment NORMAL Prothrombin Time 12.7 SEC Prothromb Time International 1.1 RATIO Ratio Activated Partial 28.1 SEC Thromboplast Time Fibrinogen 366 mg/dL Sodium Level 135 MEQ/L Potassium Level 5.4 MEQ/L Chloride Level 98 MEQ/L Carbon Dioxide Level 20.1 MEQ/L Anion Gap 17 MEQ/L Blood Urea Nitrogen 142 MG/DL Creatinine 4.92 MG/DL Estimat Glomerular Filtration 12 ML/MIN Rate Random Glucose 107 MG/DL Calcium Level 7.2 MG/DL Protein Corrected Calcium 8.5 MG/DL Total Protein 4.8 GM/DL Culture Results Microbiology Date/Time Procedure Status Source Growth 01/21/17 22:00 Gram Stain - Final Complete Sputum Endotracheal 01/21/17 22:00 Sputum Culture - Final Complete Sputum Endotracheal HEAVY GROWTH NORMAL RESPIRATORY NIEVES Imaging Studies Last 24 hours Impressions Chest X-Ray 01/23/17 0600 Signed Impressions: Service Date/Time: Monday, January 23, 2017 05:04 - CONCLUSION: No appreciable change. Kaylah Schroeder MD Administered Medications Medications (Trade) Dose Ordered Sig/Claire Route PRN Reason Start Time Stop Time Status Last Admin Dose Admin Propofol (Diprivan 1000 Mg/100ml Inj) 100 ml @ 0 mls/hr TITRATE IV 01/05/17 21:45 01/21/17 19:16 Docusate Sodium (Colace Liq) 100 mg Q12HR PO 01/06/17 21:00 01/23/17 08:52 Sodium Chloride (NS Flush) 2 ml UNSCH PRN IV FLUSH FLUSH AFTER USING IV ACCESS 01/06/17 13:15 01/12/17 02:25 Sodium Chloride (NS Flush) 2 ml BID IV FLUSH 01/06/17 21:00 01/23/17 08:55 Chlorhexidine Gluconate (Chlorhexidine 2% Cloth) Taper DAILY@04 TOP 01/07/17 04:00 01/03/18 03:59 01/22/17 04:00 Dextrose (D50w (Vial) Inj) 25 ml UNSCH PRN IV PUSH HYPOGLYCEMIA-SEE COMMENTS 01/09/17 07:15 01/21/17 19:15 Insulin Aspart (NovoLOG SUPPLEMENTAL SCALE) 1 Q6HR SQ 01/10/17 06:00 01/20/17 00:07 Bisacodyl (Dulcolax Supp) 10 mg DAILY PRN RECTAL CONSTIPATION 01/10/17 09:15 Hold 01/10/17 09:56 Sennosides (Senna Liq) 8.8 mg BID PO 01/16/17 09:00 01/23/17 08:52 Glycerin (Glycerin Adult Supp) 2 gm BID PRN RECTAL CONSTIPATION 01/17/17 06:45 01/17/17 14:30 Amiodarone HCl (Cordarone) 200 mg Q12HR PO 01/17/17 09:00 01/23/17 08:54 Sodium Chloride DAILY IVF 01/17/17 12:30 01/23/17 08:57 Cisatracurium Besylate/Sodium Chloride (Nimbex Inj/NS 250 ml Inj) 250 ml @ 0 mls/hr TITRATE IV 01/17/17 14:30 01/23/17 15:41 Artificial Tears (Tears Naturale Opth Soln) 1 drop Q8HR EACH EYE 01/17/17 22:00 01/23/17 15:43 Chlorhexidine Gluconate 15 ml 15 ml BID@08,20 MT 01/17/17 20:00 01/23/17 08:53 Midazolam HCl 100 ml @ 0 mls/hr TITRATE IV 01/17/17 16:45 01/23/17 15:41 Fentanyl Citrate (fentaNYL DRIP) 250 ml @ 0 mls/hr TITRATE IV 01/17/17 16:45 01/23/17 03:41 Metoclopramide HCl (Reglan Inj) 5 mg Q8HR IV PUSH 01/18/17 06:45 01/23/17 05:39 Calcium Acetate (Phoslo) 667 mg TID PO 01/19/17 09:00 01/23/17 08:54 Lansoprazole (Prevacid Odt) 30 mg DAILY NG 01/19/17 09:00 01/23/17 08:54 Albumin Human (Albumin 25% Inj) 25 gm UNSCH PRN IV WITH DIALYSIS 01/19/17 08:15 01/19/17 15:17 Gentamicin Sulfate (Gentamicin (Dialysis) Inj) 20 mg UNSCH PRN IV WITH DIALYSIS 01/19/17 08:15 01/23/17 17:16 Epoetin Rizwan (Epogen Inj) 4,000 units UNSCH PRN IV WITH DIALYSIS 01/19/17 08:15 01/23/17 15:33 Methylprednisolone Sodium Succinate 40 mg 40 mg BID IV PUSH 01/20/17 09:00 01/23/17 08:53 Norepinephrine Bitartrate/Sodium Chloride (Levophed Inj/NS 250 ml Inj) 250 ml @ 0 mls/hr TITRATE IV 01/20/17 08:00 01/20/17 10:21 Erythromycin Ethylsuccinate (Ees 200 Mg/5 ml Liq) 200 mg Q8HR PO 01/21/17 14:00 01/24/17 13:59 01/23/17 05:39 Carvedilol (Coreg) 3.125 mg Q12HR PO 01/21/17 09:00 01/23/17 08:53 Objective Remarks GENERAL: Well-nourished, well-developed patient. SKIN: Warm and dry. Bruising around central line R groin. Bruising over abdomen. No petechiae. Slow resolution R neck hematoma, soft. HEAD: Normocephalic. Nose balloons in place. EYES: No scleral icterus. No injection or drainage. NECK: Supple, trachea midline. No JVD or lymphadenopathy. LYMPHATIC: No adenopathy. CARDIOVASCULAR: Tachy cardic rate and irregular rhythm RESPIRATORY: Breath sounds equal bilaterally. No accessory muscle use. GASTROINTESTINAL: Abdomen soft, non-tender, nondistended. EXTREMITIES: No cyanosis, or edema. MUSCULOSKELETAL: Adequate muscle tone. NEUROLOGICAL: No obvious focal deficit. Intubated sedated. Stool bag, dark stools. Dark residuals from Tube feeding. Assessment/Plan Problem List: (1) Thrombosis of left atrium without antecedent myocardial infarction Status: Acute Plan: 01/23/17. Competing needs, anticoagulant therapy for Thrombus in LA and Afib RVR. Unable to anticoagulate with bleeding, dark stools, bleeding from skin perianal area, nose. --on Argatroban (on hold at present d/t bleeding) until current bag finished then ok to resume UFH (2) Thrombocytopenia Status: Acute Plan: 01/23/17. Platelet consumption from bleeding. HIT negative. Follow, seem to have recovery, Hgb low. --likely d/t bleeding --CLIFFORD negative (3) Epistaxis Status: Acute Plan: 01/23/17. Rhino rockets still inplace. --Rhino rockets replaced 01/21 after being removed 01/20 --anticoagulation on hold Assessment 71y/o male admitted in afib w/RVR. 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 --hematoma from central line placement in the right neck --epistaxis requiring nasal plugs Plan 1. monitor CBC 2. continue to hold anticoagulation. 3. monitor acute bleeding Meghan Torres MD January 23, 2017 19:09
--- NOTE | 2017-01-23 20:06 | HHI.PR ---
Subjective Remarks Sedated on Vent support , Now on PEEP 12. FIO2 at 40%. was dialyzed. CXR still shows pulmonary edema. No active bleeding. On Roto bed. Has a Neck hematoma Objective Vital Signs Date Time Temp Pulse Resp B/P Pulse Ox O2 Delivery O2 Flow Rate FiO2 01/23/17 18:15 95 50 01/23/17 17:40 94 40 01/23/17 16:00 50 01/23/17 16:00 129 01/23/17 16:00 94 Mechanical Ventilator 50 01/23/17 16:00 98.5 129 16 94 132/67 01/23/17 13:10 94 40 01/23/17 12:00 98.6 52 17 108/58 98 139/64 01/23/17 12:00 52 01/23/17 11:59 97 40 01/23/17 11:00 40 01/23/17 11:00 97 Mechanical Ventilator 50 01/23/17 10:40 99 50 01/23/17 09:46 99 60 01/23/17 08:00 60 01/23/17 08:00 57 01/23/17 08:00 94 Mechanical Ventilator 60 01/23/17 08:00 98.4 60 16 119/67 94 120/56 01/23/17 04:40 53 01/23/17 04:00 98.5 56 16 136/54 93 123/56 01/23/17 03:46 97 60 01/23/17 03:38 90 Mechanical Ventilator 60 01/23/17 03:38 60 01/23/17 00:39 93 60 01/23/17 00:00 98.0 62 16 92 128/57 01/22/17 23:53 61 01/22/17 23:35 96 60 01/22/17 23:18 90 Mechanical Ventilator 60 01/22/17 23:18 60 01/22/17 20:38 94 60 I/O 01/22/17 01/22/17 01/22/17 01/23/17 01/23/17 01/23/17 07:00 15:00 23:00 07:00 15:00 23:00 Intake Total 1861 ml 1321 ml 1775 ml 1239 ml Output Total 830 ml 3000 ml 150 ml 150 ml 3435 ml Balance 1031 ml -3000 ml 1171 ml 1625 ml -2196 ml Intake Oral 0 ml 0 ml IV Total 1540 ml 1051 ml 1468 ml 972 ml Tube Feeding 71 ml 70 ml 177 ml 117 ml Packed Cells 250 ml Tube Irrigant 200 ml Other 130 ml 150 ml Output Urine Total 180 ml 50 ml 125 ml 185 ml Stool Total 100 ml 100 ml 25 ml 50 ml Gastric Drainage Total 550 ml Hemodialysis 3000 ml 3200 ml Result Diagram: 01/23/17 0510 01/23/17 0510 Objective Remarks GENERAL: This is an obese, elderly man who is intubated, sedated, assisting the ventilator. HEENT: Head is normocephalic. Pupils are reactive. NECK: Supple with neck hematoma on right. Trachea is midline. CHEST: Decreased breath sounds with crackles at both lung bases.Occ wheeze heard HEART: The heart sounds are irregular S1-S2. No murmur. ABDOMEN: Soft. Obese without masses. No organomegaly. EXTREMITIES: 1 + edema. Decreased peripheral pulses. Reflexes are not elicited. The patient is sedated. SKIN: Dry and cool. Assessment and Plan Assessment and Plan IMPRESSION 1. Hypoxic respiratory failure. 2. Left lower lobe atelectasis and possible pneumonia with aspiration. 3. Left pleural effusion resolved. 4. Cardiomyopathy and congestive heart failure. 5. Obstructive sleep apnea. 6. Diabetes mellitus. 7. Atrial fibrillation. 8. Nasopharyngeal bleed Plan : 1. Wean FIO2 to keep sat >90. 2. Wean PEEP to 10 CM, FIO2 to 50 % 3. Antibiotics per ID. 4. CBC ,BMP in am. 5. Nebs qid , duoneb. 6. Lavage and suction trach 7. Tube feeds at 50 CC 8. Solumedrol 20 mg IV q12h 9. Argatroban for anticoagulation Julius Burch MD January 23, 2017 20:05
[2017-01-23 22:28] LABS: BLOOD GAS BASE EXCESS -5.5 mmol/L (-2-2); BLOOD GAS CARBOXYHEMOGLOBIN 1.8 % (0-4); BLOOD GAS HCO3 19 mmol/L (22-26); BLOOD GAS METHEMOGLOBIN 1.6 % (0-2); BLOOD GAS OXYGEN CONTENT 10.4 Vol % (12.0-20.0); BLOOD GAS PCO2 31 mmHg (38-42); BLOOD GAS PO2 57 mmHg (61-120); BLOOD GAS TOTAL HGB 8.7 G/DL (12.0-16.0); CRITICAL VALUE YES; TEMP CORR TO 98.6
[2017-01-23 22:29] LABS: DRAW SITE ART LINE; FIO2 60 %; OXYGEN DEVICE VENTILATOR; VENT SETTINGS PC/AC
[2017-01-23 22:30] LABS: STAT NO
[2017-01-23 22:33] LABS: BLOOD GAS O2 HGB SATURATION 84 % (90-100)
[2017-01-24] VITALS (17 sets, daily range): BP systolic 119–176; BP diastolic 62–122; PULSE 90–124; RESP 16; TEMP 98.4–98.9; O2SAT 89–100
[2017-01-24] MEDS: RESP: IPRATROPIUM 0.5 MG/2.5 ML NEB NEB SCH ×4 (03:44→20:47)
[2017-01-24] MEDS: RESP: LEVALBUTEROL HYDROCHLORIDE 0.63 MG/3 ML NEB (SCH) NEB (03:44)
[2017-01-24] MEDS: CHLORHEXIDINE GLUCONATE 2 % 1 PACK (2 CLOTHS) TOP SCH (03:50)
[2017-01-24] MEDS: CISATRACURIUM INJ 100 MG in SODIUM CHLOR 0.9% 250 ML INJ 240 ML IV SCH ×5 (03:51→16:43)
[2017-01-24 04:31] LABS: AUTOMATED NEUTROPHIL # 9.9 TH/MM3 (1.8-7.7); BASOPHIL % 0.1 % (0.0-2.0); EOSINOPHIL % 0.2 % (0.0-4.0); HEMATOCRIT 24.5 % (39.0-51.0); LYMPH % 1.2 % (9.0-44.0); LYMPHOCYTE # 0.1 TH/MM3 (1.0-4.8); MEAN CELL VOLUME 86.1 FL (80.0-100.0); MEAN CORPUSCULAR HEMOGLOBIN 29.6 PG (27.0-34.0); MEAN CORPUSCULAR HGB CONC 34.3 % (32.0-36.0); MONO % 3.4 % (0.0-8.0); NEUT % 95.1 % (16.0-70.0); PLATELET COUNT 59 TH/MM3 (150-450); RED BLOOD COUNT 2.85 MIL/MM3 (4.50-5.90); RED CELL DISTRIBUTION WIDTH 16.7 % (11.6-17.2); WHITE BLOOD COUNT 10.4 TH/MM3 (4.0-11.0)
[2017-01-24 04:34] LABS: HEMO FLAGS AUTO DIFF
[2017-01-24 04:57] LABS: BICARBONATE 19.7 MEQ/L (21.0-32.0); CALCIUM-PROTEIN CORRECTED 8.7 MG/DL (8.5-10.1); POTASSIUM 4.7 MEQ/L (3.5-5.1); TOTAL BILIRUBIN ADULT 0.7 MG/DL (0.2-1.0)
[2017-01-24 05:21] LABS: BANDS 1 % (0-6); NEUTROPHIL # MANUAL DIFF 10.2 TH/MM3 (1.8-7.7); POLYS (SEG NEUTROPHILS) 97 % (16-70); WBC DIFF SAMPLE 100
[2017-01-24 05:22] LABS: PLATELET ESTIMATE SMEAR LOW (NORMAL); PLATELET MORPHOLOGY NORMAL (NORMAL); SCAN/DIFF FINAL DIFF MANUAL
[2017-01-24 05:23] LABS: APTT (PATIENT) 26.8 SEC (24.3-30.1); INTERNATIONAL NORMALIZED RATIO 1.1 RATIO; PROTHROMBIN TIME - PATIENT 12.5 SEC (9.8-11.6)
[2017-01-24] MEDS: INSULIN ASPART SUPPLEMENTAL SCALE SQ SCH ×4 (06:00→18:00)
[2017-01-24] MEDS: METOCLOPRAMIDE HCL 10 MG/2 ML VIAL IV PUSH SCH ×3 (06:00→22:48)
[2017-01-24] MEDS: ERYTHROMYCIN ETHYLSUCCINATE 200 MG/5 ML SUSP 100 ML BOTTLE PO SCH (06:00)
[2017-01-24] MEDS: ARTIFICIAL TEARS OPTH SOLN 15 ML BTL EACH EYE SCH ×3 (06:27→22:00)
[2017-01-24] MEDS: CHLORHEXIDINE 0.12% (ORAL KIT) 15 ML CUP MT SCH ×2 (08:18→20:00)
[2017-01-24] MEDS: MIDAZOLAM 100 MG/ML INJ 100 ML IV SCH (08:18)
[2017-01-24] MEDS: SODIUM CHLORIDE 0.9% FLUSH 10 ML FLUSH IVF SCH (09:00)
[2017-01-24] MEDS: SENNOSIDES SYRUP 8.8 MG/5 ML CUP PO SCH ×2 (09:19→19:36)
[2017-01-24] MEDS: methylPREDNISolone SOD SUCC 40 MG/1 ML VIAL IV PUSH SCH ×2 (09:19→19:36)
[2017-01-24] MEDS: DOCUSATE SODIUM 100 MG/10 ML UDC PO SCH ×2 (09:19→19:37)
[2017-01-24] MEDS: SODIUM CHLORIDE 0.9% FLUSH 10 ML FLUSH IV FLUSH SCH ×2 (09:19→19:37)
[2017-01-24] MEDS: AMIODARONE 200 MG TAB PO SCH ×2 (09:20→19:37)
[2017-01-24] MEDS: CALCIUM ACETATE 667 MG CAP PO SCH ×3 (09:20→18:24)
[2017-01-24] MEDS: LANSOPRAZOLE SOLUTAB 30 MG TAB NG SCH (09:20)
[2017-01-24] MEDS: CARVEDILOL 3.125 MG TAB PO SCH (09:20)
--- NOTE | 2017-01-24 09:33 | HHI.CCPN ---
Subjective Remarks/Hospital Course This is a 71-year-old gentleman that presented to [facility] secondary to dyspnea and atrial fibrillation with RVR. The patient has a medical history significant for obesity and hypertension. During his hospitalization at [facility], the patient underwent an echocardiogram which showed severe systolic dysfunction with an ejection fraction of 1015 % the patient then underwent a cardiac catheterization showing significance with left circumflex 90%. The patient underwent multiple attempts of unsuccessful synchronized cardioversion. The patient also underwent medical management with beta blockers, and calcium channel blockers that were also unsuccessful. The patient was transferred to [facility] for cardiac ablation with Dr. Jimenez. The patient was scheduled for cardiac ablation, the procedure was canceled. The patient required emergent intubation and required ventilator management a VLADIMIR was performed showing a clot in the left atrial appendage. The patient was placed on IV Cardizem, and an amiodarone infusion. Critical Care medicine was consulted for management. 01/06: Tmax 97.4. The patient remained on elevated vent settings with FiO2 of 1.0 overnight, PEEP requirements were increased to 8, to maintain a PaO2 of greater than [address] scan of the chest was obtained which noted bilateral effusions small, basilar consolidations right worse than the left, and a loculated area representing a possible pneumonia process, empyema, as well as aspiration or just loculated fluid as well as a small pericardial effusion. The patient continues on Cardizem and amiodarone infusions with a heart rate overnight 80s -115. The patient's vasopressor requirements of phenylephrine diminished to 20 mcgs. 01/07: Tmax 99.2. Yesterday the central line was placed for vasoactive medications and CVP monitoring, small hematoma noted near the right IJ area soft no compression of major vessels, with resolution of bleeding in that area. Phenylephrine was discontinued yesterday. The patient heart rate remains today [id number]. Cardizem infusion has been discontinued in the setting of EF of 10-15%. Esmolol infusion to be initiated this a.m.. Coumadin was initiated last night now placed on hold due to patient bleeding from nasopharynx and oropharynx. INR currently 1.2. Plan for CT thorax tomorrow, with possible IR intervention versus CVT consultation for possible empyema the patient will remain on heparin infusion, and transition onto Coumadin after any potential procedures to be initiated. Chest x-ray slightly improved FiO2 decreasing now 70%. Sedation vacation yesterday revealed GCS 11 T, patient alert responsive following commands. With initiation of antibiotics, leukocytosis resolved. ID consulted Dr. Gage. Blood cultures are pending. 01/08: Patient's heart rate 110-[address] scan of the chest imaging revealed fluid. Plan for thoracentesis and and studies of pleural fluid , this afternoon. The patient remains on amiodarone and heparin infusions, per cardiology. Heparin held, for thoracentesis this afternoon, and then will be resumed. The patient was maintained on CPAP trial for approximately one hour yesterday. During sedation vacation patient was alert following commands recognizing family. Plan to resume CPAP trials this afternoon post thoracentesis. 01/09: The patient underwent CT-guided thoracentesis yesterday , on the right side noted 400 cc of fluid was removed , with specimens ordered to be sent for evaluation .This morning chest x-ray performed showing almost complete opacification of the left lung. FiO2 requirements increase patient on FiO2 of 80%, O2 sat 94%. Left chest ultrasound obtained revealing no fluid. Consent obtained BAL performed, revealing emanating from the nearest previously ( patient was noted to have epistaxis with initiation of heparin on 01/06). Blood clots noted in left lung upon visualization with bronchoscopy, saline lavage applied, minimal blood clots removed. The patient was initiated on Mucomyst 10% , and pulmonology was consulted. Dr. Tasia Lama following. The patient shows no signs or evidence of bleeding actively, plan to consult ENT if signs of active bleeding become evident. Hemoglobin remains stable.The patient converted into sinus rhythm is today afternoon. Cardiology management of medications, IV amiodarone discontinued this afternoon. 01/10: Tmax 99.0. Chest x-ray shows slight improvement of left lung today. Plan for repeat bronchoscopy per Dr. Burch this a.m, and the patient continues on Mucomyst. The patient's cardiac rhythm reverted to A. fib last evening, amiodarone IV infusion reinstituted per Dr. Jimenez. 01/11: TMax 100.0. Much improved chest x-ray this morning. The patient continues in A. fib with a rate of 120, he continues on amiodarone, heparin infusion per cardiology. No evidence of active bleeding. 5/12 Patient Remains sedated with Diprivan, intubated. T:99.9. On Neosyn 15 mics , heparin and Amio drips. In Afib with RRV. Patient s/p repeat bronch with BAL yesterday by Dr. Burch and ETT replacement by Dr. Sanchez. On PC/AC with PEEP:14 , FIO2 100%. 01/13: TMax 100.2. Last night the nurse reported that the patient had a small amount of epistaxis, and blood in the oropharynx noted. The area continued to bleed during the night. ENT has been consulted. Heparin has been placed on hold , ASA has been discontinued in the setting of acute renal failure. The patient continues on amiodarone infusion , heart rate 120's. Neosynephrine has been discontinued, and Levophed instituted. Creatinine noted to be 4.5. As per report , states patient does not want dialysis. The patient continues on elevated PEEP of 14. 5/14: Heparin was discontinued yesterday in the setting of continued bleeding in the nasal/ oropharyngeal region. ENT was consulted and nasal packing was applied. During the night the patient still had small noted amount of bleeding from the oropharyngeal area plan today for oropharyngeal packing. Hgb 9, will transfuse .The patient was placed on norepinephrine for currently at 1-2 mcgs per minute. PEEP has been decreased to 12, with adequate oxygenation a PaO2 of 71. 5/15: Tmax 99.0. The patient continues to be anemic and thrombocytopenic, contributory factors being uremia. The patient's /family decided to pursue hemodialysis at this point. The patient received 1 unit of packed red blood cells yesterday. The patient was initiated on dialysis yesterday afternoon, with approximately 3 L removed. Nasal gauze packing removed and placement of nasal balloons by ENT yesterday. Oral gauze packing to be removed today. The patient received 2 separate doses of digoxin, A. fib heart rate ranging 80- < 120. The patient continues to have high ventilatory requirements, FiO2 was increased throughout the night to currently 80%, to maintain O2 sat greater than 92%. 01/16: FiO2 at 85%. Large clots removed from oropharynx overnight. Transfused 2 units PRBCs yesterday. No bowel movement. Tolerating tube feeds at 40 cc now with Nepro 01/17: Maximum 100.6. CURRENT TEMPERATURE 98.1. Central line pulled out yesterday. Flolan initiated yesterday and FiO2 down to 65%. Tolerating tube feeds. No bowel movement. Arousable weakly follow commands yesterday 01/18: Tmax 99.8. Currently afebrile. Initially, hemoptysis with desaturation requiring bronchoscopy. See bronchoscopy note. Roto-Rest bed ordered. FiO2 from 100-70% currently. On Nimbex drip. No BM. Tolerating tube feeds. 01/19: Afebrile. FiO2 down to 40%. We will attempt a wean Flolan today. On Nimbex drip. Positive BM yesterday. Tolerating tube feeds. 01/20: FiO2 back to 100%. Flolan "fell off "overnight. Ventilator adjusted back to 100%. Flolan reinstituted. Chest x-ray and ABG pending. Tolerating tube feeds. Positive BM. Afebrile. Subjective: 01/21: Intolerant of tube feeding. KUB pending. Afebrile. Bleeding from bilateral nares and Alanis overnight. Argatroban has been held. Positive BM. 01/22 Patient is sedated with Fentanyl , versed in addition he is on Nimbex. Receiving HD. TF on hold for high residuals. 01/23 Patient is on Roto prone bed sedated and intubated. s/p HD yesterday with removal 3L. On Nimbex, afebrile. 01/24 Patient remains sedated with Versed, Fentanyl and remains on Nimbex. On PC/ AC with PEEP: 10, FIO2 down 40%. For HD today. Afebrile. Objective Vital Signs Date Time Temp Pulse Resp B/P Pulse Ox O2 Delivery O2 Flow Rate FiO2 01/24/17 08:01 94 40 01/24/17 04:00 Mechanical Ventilator 01/24/17 04:00 90 01/24/17 04:00 98.5 16 158/79 Intake and Output 01/23/17 01/23/17 01/24/17 08:00 16:00 00:00 Intake Total 1775 ml 1239 ml Output Total 150 ml 3435 ml Balance 1625 ml -2196 ml Result Diagram: 01/24/17 0400 01/24/17 0400 Other Results Laboratory Tests Test 01/23/17 01/24/17 21:00 04:00 Blood Gas Puncture Site ART LINE Blood Gas Patient Temperature 98.6 Blood Gas HCO3 19 mmol/L Blood Gas Base Excess -5.5 mmol/L Blood Gas Oxygen Saturation 84 % Arterial Blood pH 7.39 Arterial Blood Partial 31 mmHg Pressure CO2 Arterial Blood Partial 57 mmHg Pressure O2 Arterial Blood Oxygen Content 10.4 Vol % Arterial Blood 1.8 % Carboxyhemoglobin Arterial Blood Methemoglobin 1.6 % Blood Gas Hemoglobin 8.7 G/DL Oxygen Delivery Device VENTILATOR Blood Gas Ventilator Setting PC/AC Blood Gas Inspired Oxygen 60 % White Blood Count 10.4 TH/MM3 Red Blood Count 2.85 MIL/MM3 Hemoglobin 8.4 GM/DL Hematocrit 24.5 % Mean Corpuscular Volume 86.1 FL Mean Corpuscular Hemoglobin 29.6 PG Mean Corpuscular Hemoglobin 34.3 % Concent Red Cell Distribution Width 16.7 % Platelet Count 59 TH/MM3 Mean Platelet Volume 10.5 FL Neutrophils (%) (Auto) 95.1 % Lymphocytes (%) (Auto) 1.2 % Monocytes (%) (Auto) 3.4 % Eosinophils (%) (Auto) 0.2 % Basophils (%) (Auto) 0.1 % Neutrophils # (Auto) 9.9 TH/MM3 Lymphocytes # (Auto) 0.1 TH/MM3 Monocytes # (Auto) 0.4 TH/MM3 Eosinophils # (Auto) 0.0 TH/MM3 Basophils # (Auto) 0.0 TH/MM3 CBC Comment AUTO DIFF Differential Total Cells 100 Counted Neutrophils % (Manual) 97 % Band Neutrophils % 1 % Monocytes % 2 % Neutrophils # (Manual) 10.2 TH/MM3 Differential Comment FINAL DIFF MANUAL Platelet Estimate LOW Platelet Morphology Comment NORMAL Red Cell Morphology Comment NORMAL Prothrombin Time 12.5 SEC Prothromb Time International 1.1 RATIO Ratio Activated Partial 26.8 SEC Thromboplast Time Fibrinogen 359 mg/dL Sodium Level 138 MEQ/L Potassium Level 4.7 MEQ/L Chloride Level 101 MEQ/L Carbon Dioxide Level 19.7 MEQ/L Anion Gap 17 MEQ/L Blood Urea Nitrogen 132 MG/DL Creatinine 4.44 MG/DL Estimat Glomerular Filtration 13 ML/MIN Rate Random Glucose 115 MG/DL Calcium Level 7.4 MG/DL Protein Corrected Calcium 8.7 MG/DL Phosphorus Level 7.0 MG/DL Total Bilirubin 0.7 MG/DL Aspartate Amino Transf 41 U/L (AST/SGOT) Alanine Aminotransferase 65 U/L (ALT/SGPT) Alkaline Phosphatase 56 U/L Total Protein 4.8 GM/DL Albumin 2.0 GM/DL Imaging Last Impressions Chest X-Ray 01/23/17599 Signed Impressions: Service Date/Time: Monday, January 23, 2017 05:04 - CONCLUSION: No appreciable change. K. Phoenix Schroeder MD Abdomen X-Ray 01/21/17 Signed Impressions: Service Date/Time: Saturday, January 21, 2017 08:41 - CONCLUSION: Nondiagnostic study. Gurvinder Collier MD Renal Ultrasound 01/09/17 Signed Impressions: Service Date/Time: Monday, January 09, 2017 13:56 - CONCLUSION: 1. Right kidney is sonographically normal. 2. Benign-appearing 2.4 x 1.5 cm cortical cyst in the midpole of the left kidney. 3. Subcentimeter echogenic, non-shadowing foci in the midpole of the left kidney would be unusual for stones and may represent ectopic hilar fat. No hydronephrosis. 4. Urinary bladder is decompressed with a Alanis catheter. Douglas Ward MD Chest Ultrasound 01/09/17 Signed Impressions: Service Date/Time: Monday, January 09, 2017 08:18 - CONCLUSION: No left-sided pleural effusion. The abnormality in the left chest on chest radiograph is likely related to mucous plugging. When patient had a CT scan yesterday the left lung was well aerated. Edgardo Mayorga MD Chest CT 01/08/17599 Signed Impressions: Service Date/Time: Sunday, January 08, 2017 08:46 - CONCLUSION: Massive cardiomegaly with panchamber enlargement extensive coronary calcifications. Stable trace pericardial effusion. Increasing bibasilar consolidative changes with minimal bilateral pleural effusions.. Rhys Fritz MD FACR Thoracentesis 01/08/17 Signed Impressions: Service Date/Time: Sunday, January 08, 2017 16:08 - CONCLUSION: Uncomplicated CT-guided thoracentesis on the right. The left sided thoracentesis was not performed as there was no significant left pleural fluid. The abnormality on most recent chest x-ray was secondary to mucous plugging and left sided atelectasis. Edgardo Mayorga MD Objective Remarks GENERAL: 71-year-old male, critically ill-appearing obese male resting in rotarest bed SKIN: Warm and dry. No rash HEAD: Atraumatic. Normocephalic. EYES: Pupils equal and round, 3mm and reactive. No scleral icterus. No injection or drainage. ENT: Bilateral Rhino Rocket newly placed . Positive blood from mouth with suctioning NECK: Trachea midline. Unable to assess JVD secondary to body habitus. Large right-sided neck hematoma without midline shift. Evolving ecchymoses. Left subclavian central line is clean dry and intact CARDIOVASCULAR: Tachycardia, IR. S1, S2 no S4 without murmur RESPIRATORY: Diminished breath sounds throughout. Few crackles in bases bilaterally. Breath sounds equal bilaterally. GASTROINTESTINAL: Abdomen soft, obese non-tender, nondistended. I Magana bowel sounds MUSCULOSKELETAL: Extremities with 1+ peripheral edema. No obvious deformities. Posterior tibialis is palpable bilaterally. Right femoral Vas-Cath is clean dry and intact NEUROLOGICAL: Intubated and sedated. Follows commands moving extremities 4, when off sedation documented last Sunday. Date of Insertion: January 05, 2017 Date of Insertion: January 17, 2017 Line: Central Venous Catheter Side: Left Location: Subclavian, Jugular A/P Assessment and Plan Neuro/Psych: Epistaxis Continue with Fentanyl and Versed infusion for sedation in addition patient is n Nimbex. Maintain [id number] 2 out of 4/BIS 40-60 Goal of RASS -5 01/12 New onset epistaxis, heparin discontinued Epistaxis-ENT consulted-nasal balloons in situ maintain balloons until 01/20 per ENT recommendation. Removed 01/20 but resumed bleeding so replaced yesterday - 01/21 ENT following - Dr. Byrd. Respiratory: Acute hypoxic respiratory failure Left lung consolidation 2/2 previous event of epistaxis, clotted blood left lung -resolved SONU Probable aspiration Possible multilobar [id number] Bilateral pleural effusions Continue with vent support keep sat >92% On PC/AC RR 16, IP:14, IT:1.50, PEEP;10, FIO2 40, decrease PEEP; 5 as dennis Currently on Xopenex and Atrovent aerosols every 6 hours ICU vent bundle. Pulmonology following- Dr. Burch Solu-Medrol 40 mg IV BID, off Flolan 01/08-right CT-guided thoracentesis-400 cc removed, sent for cytology and cultures s/p bronch 01.11 by- Dr. Burch for blood clots left lung Status post bronch 01/17 by saddle tree stitcher - bloody mucous plug at saturnino/mainstem section cleared. No obvious source of bleeding. CV: A. fib with RVR Left atrial appendage thrombus Cardiomyopathy Acute Systolic CHF Hypertension Dyslipidemia On Amiodarone 200 mg twice a day, Coreg 3.125mg BID. Monitor HR and BP keep MAP> 65mmHg 01/13- Heparin, ASA discontinued due to epistaxis 01/05 VLADIMIR( Dry Finisher)-left atrial thrombus EF 15-20%. Systolic function reduced. Diffuse hyperkinesis. 12/26 [facility] severe systolic dysfunction EF 1015%, mitral valve mild to moderate regurg, LAE, tricuspid Valve-mild to moderate regurg, small pericardial effusion, 12/19 cardiac cath left circumflex 90% occlusion Management per Cardiology -Dr. Jimenez 01/15 started on Coreg 6.25 mill grams by mouth twice a day. We'll restart Coreg at 3.125 twice a day as off vasopressors At home on Coreg 25 mg twice a day, aspirin 81 mg daily, hydralazine 25 mg twice a day and HCTZ25 mg by mouth daily Renal: Acute on chronic kidney disease stage IV Nephrology following-Dr. Hahn Monitor renal function, I/O's, avoid nephrotoxins. Vascath placement Hemodialysis initiated 01/14. For HD today Cr: 4.44 today from 4.92, UO: 485ml in 24 hrs FEN/GI: Morbid obesity Hyperkalemia Hyperphosphatemia Tube feeds( Nepro @50 cc) on hold for high residuals. KUB abdomen 01/21: Non diagnostic study Prevacid for GI prophylaxis Bowel Colace/Senokot twice a day. On Reglan 5 every 8 and erythromycin 200 every 8 for bowel motility/prokinetic PhosLo 667 3 times a day Heme: Leukocytosis Normocytic anemia Thrombocytopenia Monitor CBC. Transfused 3 units PRBCs on admission Weakly positive HIT panel-CLIFFORD is negative. Due to gross hematuria and epistaxis all anticoagulants on hold currently. Hematology is following ID: Likely aspiration pneumonia 01/06 urine, sputum, blood cultures-NGTD 01/06-Legionella urine antigen negative 01/09 - bronchoscopy - yeast/ID to follow 01/12 - blood cultures 2 - no growth 01/20 - blood cultures 2 - pending Off ID per ID ( s/p Cefepime/Flagyl) -Dr. Gage following, -Monitor for signs of infections ( Fever, WBC) -Recent cultures- NGTD Endocrine: Close monitoring per ICU protocol-medium dose regimen -- SSI Accu-Cheks every 6 hours for glycemic control Prophylaxis: GI Prophylaxis Prevacid 30 mg at night DVT Prophylaxis -- SCDs, Lines: Peripheral IV's. 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 Time to perform other separately billable procedures was not included in the critical care time. Ari Betancourt MD January 24, 2017 09:33
[2017-01-24] MEDS: MANNITOL 12.5 GM/50 ML VIAL IV PRN (09:54)
[2017-01-24] MEDS: ALBUMIN HUMAN 25% 25 GM/100 ML BAGP IV PRN (10:03)
[2017-01-24 10:04] LABS: BLOOD GAS BASE EXCESS -2.7 mmol/L (-2-2); BLOOD GAS CARBOXYHEMOGLOBIN 1.5 % (0-4); BLOOD GAS HCO3 20 mmol/L (22-26); BLOOD GAS METHEMOGLOBIN 1.2 % (0-2); BLOOD GAS O2 HGB SATURATION 88 % (90-100); BLOOD GAS OXYGEN CONTENT 10.9 Vol % (12.0-20.0); BLOOD GAS PCO2 27 mmHg (38-42); BLOOD GAS PO2 58 mmHG (61-120); BLOOD GAS TOTAL HGB 8.8 G/DL (12.0-16.0); TEMP CORR TO 98.6
[2017-01-24 10:05] LABS: CRITICAL VALUE YES; OXYGEN DEVICE VENTILATOR
[2017-01-24 10:06] LABS: DRAW SITE ART LINE; FIO2 40 %; STAT NO; VENT SETTINGS 16/IP14/PEEP10
[2017-01-24] MEDS: GENTAMICIN SULFATE (DIALYSIS USE ONLY) 20 MG/2 ML VIAL IV PRN (12:25)
--- NOTE | 2017-01-24 13:32 | HHI.NPPN ---
Subjective General Problems: Anemia, Edema, Heart Disease Renal Failure: Acute History of Present Illness 71-year-old the white male the who is transferred from [facility] to [facility] due to atrial fibrillation with fast ventricular response, he was in the heart catheterization lab and became unstable has to intubated the patient has chronic kidney disease, Cardiomyopathy ejection fraction of only 15% and has severe dilated cardiomyopathy with the clot in left atrium he is on heparin drip and currently on ventilator. Additional Remarks Patient remain on the vent. and sedated, intubated or Roto prone bed, on 50% Fio2. Objective Data Data 01/23/17 01/24/17 18:59 06:59 Intake Total 1239 ml 1040 ml Output Total 3435 ml 875 ml Balance -2196 ml 165 ml Intake Oral 0 ml IV Total 972 ml 988 ml Tube Feeding 117 ml 52 ml Other 150 ml Output Urine Total 185 ml 300 ml Stool Total 50 ml 25 ml Gastric Drainage Total 550 ml Hemodialysis 3200 ml Vital Signs Date Time Temp Pulse Resp B/P Pulse Ox O2 Delivery O2 Flow Rate FiO2 01/24/17 11:00 50 01/24/17 11:00 96 Mechanical Ventilator 40 01/24/17 11:00 113 01/24/17 11:00 98.7 113 16 119/87 93 132/67 01/24/17 09:48 89 40 01/24/17 08:01 94 40 01/24/17 07:00 100 01/24/17 07:00 98.9 100 16 134/97 95 161/77 01/24/17 07:00 95 Mechanical Ventilator 40 01/24/17 07:00 40 01/24/17 04:00 99 Mechanical Ventilator 50 01/24/17 04:00 90 01/24/17 04:00 40 01/24/17 04:00 98.5 91 16 158/79 99 01/24/17 03:44 97 40 01/24/17 02:00 50 01/24/17 01:45 95 50 01/24/17 00:00 98.8 116 16 136/62 100 01/24/17 00:00 100 Mechanical Ventilator 70 01/24/17 00:00 70 01/24/17 00:00 116 01/23/17 22:22 92 70 01/23/17 21:15 93 70 01/23/17 21:00 94 Mechanical Ventilator 70 01/23/17 20:45 93 60 01/23/17 20:00 98.8 122 16 105/58 96 100/48 01/23/17 20:00 60 01/23/17 20:00 96 Mechanical Ventilator 60 01/23/17 20:00 122 01/23/17 19:00 94 Mechanical Ventilator 50 01/23/17 18:15 95 50 01/23/17 17:40 94 40 01/23/17 16:00 50 01/23/17 16:00 129 01/23/17 16:00 94 Mechanical Ventilator 50 01/23/17 16:00 98.5 129 16 94 132/67 -: 01/24/17 0400 01/24/17 0400 Physical Exam General Appearance: Well Developed Eyes Eye Exam: Pupils Equal Throat Throat Exam: Oral Mucosa Planada & Moist Pulmonary Resp Exam: Rhonchi, Decreased Bases, Diminished Breath Sounds Cardiology CV Exam: Arrhythmia Gastrointestinal/Abdomen GI Exam: Soft, Non-Tender, Distended Extremeties Extremities Exam: Moderate Edema, Pitting Edema, Dependent Edema Neurologic Neuro Exam: Sedated Assessment/Plan Problem List: (1) Acute renal failure Plan: Patient urine out put is lower He has poor ejection fraction and is intubated Severe cardiomyopathy prognosis is guarded. hemodialysis UF 4.5 Liters today Urine out put remain low. BUN and Creatinine high, K is better (2) CKD (chronic kidney disease) stage 4, GFR 15-29 ml/min Plan: Has high creatinine kidney ultrasound reviewed (3) CHF (congestive heart failure) Plan: Severe cardiomyopathy EF 15% (4) Atrial fibrillation with rapid ventricular response Plan: Has a blood clot in LA appendage Problem Qualifiers (1) CHF (congestive heart failure): Christa Hahn MD January 24, 2017 13:32
[2017-01-24] MEDS: fentaNYL DRIP 250 ML IV SCH (16:08)
--- NOTE | 2017-01-24 18:06 | HHI.PR ---
Subjective Remarks Sedated on Vent support , Now on PEEP 10. FIO2 at 45%. was dialyzed. CXR still shows pulmonary edema. No active bleeding. On Roto bed. Objective Vital Signs Date Time Temp Pulse Resp B/P Pulse Ox O2 Delivery O2 Flow Rate FiO2 01/24/17 16:05 93 50 01/24/17 15:00 92 Mechanical Ventilator 50 01/24/17 15:00 50 01/24/17 15:00 98.9 109 16 135/92 92 169/67 01/24/17 15:00 109 01/24/17 14:19 93 50 01/24/17 11:00 50 01/24/17 11:00 96 Mechanical Ventilator 40 01/24/17 11:00 113 01/24/17 11:00 98.7 113 16 119/87 93 132/67 01/24/17 09:48 89 40 01/24/17 08:01 94 40 01/24/17 07:00 100 01/24/17 07:00 98.9 100 16 134/97 95 161/77 01/24/17 07:00 95 Mechanical Ventilator 40 01/24/17 07:00 40 01/24/17 04:00 99 Mechanical Ventilator 50 01/24/17 04:00 90 01/24/17 04:00 40 01/24/17 04:00 98.5 91 16 158/79 99 01/24/17 03:44 97 40 01/24/17 02:00 50 01/24/17 01:45 95 50 01/24/17 00:00 98.8 116 16 136/62 100 01/24/17 00:00 100 Mechanical Ventilator 70 01/24/17 00:00 70 01/24/17 00:00 116 01/23/17 22:22 92 70 01/23/17 21:15 93 70 01/23/17 21:00 94 Mechanical Ventilator 70 01/23/17 20:45 93 60 01/23/17 20:00 98.8 122 16 105/58 96 100/48 01/23/17 20:00 60 01/23/17 20:00 96 Mechanical Ventilator 60 01/23/17 20:00 122 01/23/17 19:00 94 Mechanical Ventilator 50 01/23/17 18:15 95 50 I/O 01/23/17 01/23/17 01/23/17 01/24/17/24/17 5/24/17 07:00 15:00 23:00 07:00 15:00 23:00 Intake Total 1775 ml 1239 ml 1040 ml 999 ml Output Total 150 ml 3435 ml 875 ml 4500 ml 300 ml Balance 1625 ml -2196 ml 165 ml -4500 ml 699 ml Intake Oral 0 ml 0 ml IV Total 1468 ml 972 ml 988 ml 879 ml Tube Feeding 177 ml 117 ml 52 ml 0 ml Other 130 ml 150 ml 120 ml Output Urine Total 125 ml 185 ml 300 ml 200 ml Stool Total 25 ml 50 ml 25 ml Gastric Drainage Total 550 ml 100 ml Hemodialysis 3200 ml 4500 ml # Bowel Movements 0 Result Diagram: 01/24/17 04001/24/17399 Objective Remarks GENERAL: This is an obese, elderly man who is intubated, sedated, assisting the ventilator. HEENT: Head is normocephalic. Pupils are reactive. NECK: Supple with neck hematoma on right. Trachea is midline. CHEST: Decreased breath sounds with crackles at both lung bases.Occ wheeze heard HEART: The heart sounds are irregular S1-S2. No murmur. ABDOMEN: Soft. Obese without masses. No organomegaly. EXTREMITIES: 1 + edema. Decreased peripheral pulses. Reflexes are not elicited. The patient is sedated. SKIN: Dry and cool. Assessment and Plan Assessment and Plan IMPRESSION 1. Hypoxic respiratory failure. 2. Left lower lobe atelectasis and possible pneumonia with aspiration. 3. Left pleural effusion resolved. 4. Cardiomyopathy and congestive heart failure. 5. Obstructive sleep apnea. 6. Diabetes mellitus. 7. Atrial fibrillation. 8. Nasopharyngeal bleed Plan : 1. Wean FIO2 to keep sat >90. 2. Wean PEEP to 10 CM, FIO2 to 40 % 3. Antibiotics per ID. 4. CBC CXR ,BMP in am. 5. Nebs qid , duoneb. 6. Lavage and suction trach 7. Tube feeds at 50 CC 8. Solumedrol 20 mg IV q12h 9. Argatroban for anticoagulation 10. Plan Tracheostomy soon Julius Burch MD January 24, 2017 18:06
[2017-01-24] MEDS ORDERED: NITROGLYCERIN 2% OINT 1 GM PACKET TOPICAL PRN (19:15)
[2017-01-24] MEDS: LABETALOL HCL 100 MG/20 ML VIAL IV PUSH PRN (19:28)
[2017-01-24] MEDS: CARVEDILOL 6.25 MG TAB PO SCH (19:37)
[2017-01-25] VITALS (24 sets, daily range): BP systolic 80–186; BP diastolic 57–103; PULSE 119–146; RESP 15–18; TEMP 97.9–98.4; O2SAT 0–100
[2017-01-25] MEDS: CISATRACURIUM INJ 100 MG in SODIUM CHLOR 0.9% 250 ML INJ 240 ML IV SCH ×2 (00:18→05:48)
[2017-01-25] MEDS: MIDAZOLAM 100 MG/ML INJ 100 ML IV SCH (00:18)
[2017-01-25] MEDS: RESP: IPRATROPIUM 0.5 MG/2.5 ML NEB NEB SCH ×3 (03:24→21:28)
[2017-01-25] MEDS: CHLORHEXIDINE GLUCONATE 2 % 1 PACK (2 CLOTHS) TOP SCH (04:00)
[2017-01-25] MEDS: ARTIFICIAL TEARS OPTH SOLN 15 ML BTL EACH EYE SCH ×3 (05:47→21:22)
[2017-01-25] MEDS: METOCLOPRAMIDE HCL 10 MG/2 ML VIAL IV PUSH SCH ×3 (05:47→21:21)
[2017-01-25] MEDS: INSULIN ASPART SUPPLEMENTAL SCALE SQ SCH ×4 (05:48→17:26)
--- NOTE | 2017-01-25 05:52 | RADRPT ---
EXAM DATE/TIME: 01/25/2017 04:40 [place] COMPARISON: CHEST SINGLE AP, January 23, 2017, 5:04. INDICATIONS : Shortness of breath, possible pulmonary disease. MEDICAL HISTORY : Hypertension. SURGICAL HISTORY : Coronary artery stent. ENCOUNTER: Subsequent ACUITY: 1 month PAIN SCORE: Non-responsive. LOCATION: Bilateral chest FINDINGS: A single view of the chest demonstrates the endotracheal, nasogastric tube and left subclavian centra l line are all in good position. There is persistent atelectasis left lower lobe with consolidation. The heart remains enlarged.. The cardiomediastinal contours are otherwise unremarkable. Osseous str uctures are intact. CONCLUSION: Tubes and catheters in good position. Persistent consolidation left lower lobe Orlin Mascorro MD on January 25, 2017 at 5:50 Board Certified Radiologist. This report was verified electronically.
[2017-01-25 06:55] LABS: AUTOMATED NEUTROPHIL # 8.7 TH/MM3 (1.8-7.7); BASOPHIL # 0.1 TH/MM3 (0-0.2); BASOPHIL % 0.6 % (0.0-2.0); EOSINOPHIL % 0.2 % (0.0-4.0); HEMATOCRIT 23.6 % (39.0-51.0); LYMPH % 2.4 % (9.0-44.0); LYMPHOCYTE # 0.2 TH/MM3 (1.0-4.8); MEAN CELL VOLUME 86.2 FL (80.0-100.0); MEAN CORPUSCULAR HEMOGLOBIN 29.7 PG (27.0-34.0); MEAN CORPUSCULAR HGB CONC 34.4 % (32.0-36.0); MONO % 3.7 % (0.0-8.0); NEUT % 93.1 % (16.0-70.0); PLATELET COUNT 60 TH/MM3 (150-450); RED BLOOD COUNT 2.74 MIL/MM3 (4.50-5.90); RED CELL DISTRIBUTION WIDTH 16.6 % (11.6-17.2); WHITE BLOOD COUNT 9.3 TH/MM3 (4.0-11.0)
[2017-01-25 07:05] LABS: HEMO FLAGS AUTO DIFF
[2017-01-25 07:24] LABS: BICARBONATE 19.6 MEQ/L (21.0-32.0); POTASSIUM 4.1 MEQ/L (3.5-5.1)
--- NOTE | 2017-01-25 07:49 | HHI.CCPN ---
Subjective Remarks/Hospital Course This is a 71-year-old gentleman that presented to [facility] secondary to dyspnea and atrial fibrillation with RVR. The patient has a medical history significant for obesity and hypertension. During his hospitalization at [facility], the patient underwent an echocardiogram which showed severe systolic dysfunction with an ejection fraction of 1015 % the patient then underwent a cardiac catheterization showing significance with left circumflex 90%. The patient underwent multiple attempts of unsuccessful synchronized cardioversion. The patient also underwent medical management with beta blockers, and calcium channel blockers that were also unsuccessful. The patient was transferred to [facility] for cardiac ablation with Dr. Jimenez. The patient was scheduled for cardiac ablation, the procedure was canceled. The patient required emergent intubation and required ventilator management a VLADIMIR was performed showing a clot in the left atrial appendage. The patient was placed on IV Cardizem, and an amiodarone infusion. Critical Care medicine was consulted for management. 01/06: Tmax 97.4. The patient remained on elevated vent settings with FiO2 of 1.0 overnight, PEEP requirements were increased to 8, to maintain a PaO2 of greater than [address] scan of the chest was obtained which noted bilateral effusions small, basilar consolidations right worse than the left, and a loculated area representing a possible pneumonia process, empyema, as well as aspiration or just loculated fluid as well as a small pericardial effusion. The patient continues on Cardizem and amiodarone infusions with a heart rate overnight 80s -115. The patient's vasopressor requirements of phenylephrine diminished to 20 mcgs. 01/07: Tmax 99.2. Yesterday the central line was placed for vasoactive medications and CVP monitoring, small hematoma noted near the right IJ area soft no compression of major vessels, with resolution of bleeding in that area. Phenylephrine was discontinued yesterday. The patient heart rate remains today [id number]. Cardizem infusion has been discontinued in the setting of EF of 10-15%. Esmolol infusion to be initiated this a.m.. Coumadin was initiated last night now placed on hold due to patient bleeding from nasopharynx and oropharynx. INR currently 1.2. Plan for CT thorax tomorrow, with possible IR intervention versus CVT consultation for possible empyema the patient will remain on heparin infusion, and transition onto Coumadin after any potential procedures to be initiated. Chest x-ray slightly improved FiO2 decreasing now 70%. Sedation vacation yesterday revealed GCS 11 T, patient alert responsive following commands. With initiation of antibiotics, leukocytosis resolved. ID consulted Dr. Gage. Blood cultures are pending. 01/08: Patient's heart rate 110-[address] scan of the chest imaging revealed fluid. Plan for thoracentesis and and studies of pleural fluid , this afternoon. The patient remains on amiodarone and heparin infusions, per cardiology. Heparin held, for thoracentesis this afternoon, and then will be resumed. The patient was maintained on CPAP trial for approximately one hour yesterday. During sedation vacation patient was alert following commands recognizing family. Plan to resume CPAP trials this afternoon post thoracentesis. 01/09: The patient underwent CT-guided thoracentesis yesterday , on the right side noted 400 cc of fluid was removed , with specimens ordered to be sent for evaluation .This morning chest x-ray performed showing almost complete opacification of the left lung. FiO2 requirements increase patient on FiO2 of 80%, O2 sat 94%. Left chest ultrasound obtained revealing no fluid. Consent obtained BAL performed, revealing emanating from the nearest previously ( patient was noted to have epistaxis with initiation of heparin on 01/06). Blood clots noted in left lung upon visualization with bronchoscopy, saline lavage applied, minimal blood clots removed. The patient was initiated on Mucomyst 10% , and pulmonology was consulted. Dr. Tasia Lama following. The patient shows no signs or evidence of bleeding actively, plan to consult ENT if signs of active bleeding become evident. Hemoglobin remains stable.The patient converted into sinus rhythm is today afternoon. Cardiology management of medications, IV amiodarone discontinued this afternoon. 01/10: Tmax 99.0. Chest x-ray shows slight improvement of left lung today. Plan for repeat bronchoscopy per Dr. Burch this a.m, and the patient continues on Mucomyst. The patient's cardiac rhythm reverted to A. fib last evening, amiodarone IV infusion reinstituted per Dr. Jimenez. 01/11: TMax 100.0. Much improved chest x-ray this morning. The patient continues in A. fib with a rate of 120, he continues on amiodarone, heparin infusion per cardiology. No evidence of active bleeding. 5/12 Patient Remains sedated with Diprivan, intubated. T:99.9. On Neosyn 15 mics , heparin and Amio drips. In Afib with RRV. Patient s/p repeat bronch with BAL yesterday by Dr. Burch and ETT replacement by Dr. Sanchez. On PC/AC with PEEP:14 , FIO2 100%. 01/13: TMax 100.2. Last night the nurse reported that the patient had a small amount of epistaxis, and blood in the oropharynx noted. The area continued to bleed during the night. ENT has been consulted. Heparin has been placed on hold , ASA has been discontinued in the setting of acute renal failure. The patient continues on amiodarone infusion , heart rate 120's. Neosynephrine has been discontinued, and Levophed instituted. Creatinine noted to be 4.5. As per report , states patient does not want dialysis. The patient continues on elevated PEEP of 14. 5/14: Heparin was discontinued yesterday in the setting of continued bleeding in the nasal/ oropharyngeal region. ENT was consulted and nasal packing was applied. During the night the patient still had small noted amount of bleeding from the oropharyngeal area plan today for oropharyngeal packing. Hgb 9, will transfuse .The patient was placed on norepinephrine for currently at 1-2 mcgs per minute. PEEP has been decreased to 12, with adequate oxygenation a PaO2 of 71. 5/15: Tmax 99.0. The patient continues to be anemic and thrombocytopenic, contributory factors being uremia. The patient's /family decided to pursue hemodialysis at this point. The patient received 1 unit of packed red blood cells yesterday. The patient was initiated on dialysis yesterday afternoon, with approximately 3 L removed. Nasal gauze packing removed and placement of nasal balloons by ENT yesterday. Oral gauze packing to be removed today. The patient received 2 separate doses of digoxin, A. fib heart rate ranging 80- < 120. The patient continues to have high ventilatory requirements, FiO2 was increased throughout the night to currently 80%, to maintain O2 sat greater than 92%. 01/16: FiO2 at 85%. Large clots removed from oropharynx overnight. Transfused 2 units PRBCs yesterday. No bowel movement. Tolerating tube feeds at 40 cc now with Nepro 01/17: Maximum 100.6. CURRENT TEMPERATURE 98.1. Central line pulled out yesterday. Flolan initiated yesterday and FiO2 down to 65%. Tolerating tube feeds. No bowel movement. Arousable weakly follow commands yesterday 01/18: Tmax 99.8. Currently afebrile. Initially, hemoptysis with desaturation requiring bronchoscopy. See bronchoscopy note. Roto-Rest bed ordered. FiO2 from 100-70% currently. On Nimbex drip. No BM. Tolerating tube feeds. 01/19: Afebrile. FiO2 down to 40%. We will attempt a wean Flolan today. On Nimbex drip. Positive BM yesterday. Tolerating tube feeds. 01/20: FiO2 back to 100%. Flolan "fell off "overnight. Ventilator adjusted back to 100%. Flolan reinstituted. Chest x-ray and ABG pending. Tolerating tube feeds. Positive BM. Afebrile. Subjective: 01/21: Intolerant of tube feeding. KUB pending. Afebrile. Bleeding from bilateral nares and Alanis overnight. Argatroban has been held. Positive BM. 01/22 Patient is sedated with Fentanyl , versed in addition he is on Nimbex. Receiving HD. TF on hold for high residuals. 01/23 Patient is on Roto prone bed sedated and intubated. s/p HD yesterday with removal 3L. On Nimbex, afebrile. 01/24 Patient remains sedated with Versed, Fentanyl and remains on Nimbex. On PC/ AC with PEEP: 10, FIO2 down 40%. For HD today. Afebrile. 01/25 Patient remains sedated and intubated . On PC/AC with PEEP: 10 and FIO2 50% . s/p HD yesterday with removal 4.5L. Afebrile. Objective Vital Signs Date Time Temp Pulse Resp B/P Pulse Ox O2 Delivery O2 Flow Rate FiO2 01/25/17 06:00 125 01/25/17 04:05 98 50 01/25/17 04:00 98.1 16 164/99 186/103 01/24/17 19:30 Mechanical Ventilator Intake and Output 01/24/17 01/24/17 01/25/17 08:00 16:00 00:00 Intake Total 1040 ml 1416 ml Output Total 875 ml 4500 ml 550 ml Balance 165 ml -4500 ml 866 ml Result Diagram: 01/25/17 0530 01/25/17 0530 Other Results Laboratory Tests Test 01/24/17 01/25/17 09:50 05:30 Blood Gas Puncture Site ART LINE Blood Gas Patient Temperature 98.6 Blood Gas HCO3 20 mmol/L Blood Gas Base Excess -2.7 mmol/L Blood Gas Oxygen Saturation 88 % Arterial Blood pH 7.49 Arterial Blood Partial 27 mmHg Pressure CO2 Arterial Blood Partial 58 mmHG Pressure O2 Arterial Blood Oxygen Content 10.9 Vol % Arterial Blood 1.5 % Carboxyhemoglobin Arterial Blood Methemoglobin 1.2 % Blood Gas Hemoglobin 8.8 G/DL Oxygen Delivery Device VENTILATOR Blood Gas Ventilator Setting 16/IP14/PEEP10 Blood Gas Inspired Oxygen 40 % White Blood Count 9.3 TH/MM3 Red Blood Count 2.74 MIL/MM3 Hemoglobin 8.1 GM/DL Hematocrit 23.6 % Mean Corpuscular Volume 86.2 FL Mean Corpuscular Hemoglobin 29.7 PG Mean Corpuscular Hemoglobin 34.4 % Concent Red Cell Distribution Width 16.6 % Platelet Count 60 TH/MM3 Mean Platelet Volume 10.5 FL Neutrophils (%) (Auto) 93.1 % Lymphocytes (%) (Auto) 2.4 % Monocytes (%) (Auto) 3.7 % Eosinophils (%) (Auto) 0.2 % Basophils (%) (Auto) 0.6 % Neutrophils # (Auto) 8.7 TH/MM3 Lymphocytes # (Auto) 0.2 TH/MM3 Monocytes # (Auto) 0.3 TH/MM3 Eosinophils # (Auto) 0.0 TH/MM3 Basophils # (Auto) 0.1 TH/MM3 CBC Comment AUTO DIFF Sodium Level 140 MEQ/L Potassium Level 4.1 MEQ/L Chloride Level 101 MEQ/L Carbon Dioxide Level 19.6 MEQ/L Anion Gap 19 MEQ/L Blood Urea Nitrogen 111 MG/DL Creatinine 4.08 MG/DL Estimat Glomerular Filtration 15 ML/MIN Rate Random Glucose 90 MG/DL Calcium Level 7.8 MG/DL Imaging Last Impressions Chest X-Ray 01/25/17 0600 Signed Impressions: Service Date/Time: January 04:40 - CONCLUSION: Tubes and catheters in good position. Persistent consolidation left lower lobe Orlin Mascorro MD Abdomen X-Ray 01/21/17 0000 Signed Impressions: Service Date/Time: Saturday, January 21, 2017 08:41 - CONCLUSION: Nondiagnostic study. Gurvinder Collier MD Renal Ultrasound 01/09/17 0000 Signed Impressions: Service Date/Time: Monday, January 09, 2017 13:56 - CONCLUSION: 1. Right kidney is sonographically normal. 2. Benign-appearing 2.4 x 1.5 cm cortical cyst in the midpole of the left kidney. 3. Subcentimeter echogenic, non-shadowing foci in the midpole of the left kidney would be unusual for stones and may represent ectopic hilar fat. No hydronephrosis. 4. Urinary bladder is decompressed with a Alanis catheter. Douglas Ward MD Chest Ultrasound 01/09/17 0000 Signed Impressions: Service Date/Time: Monday, January 09, 2017 08:18 - CONCLUSION: No left-sided pleural effusion. The abnormality in the left chest on chest radiograph is likely related to mucous plugging. When patient had a CT scan yesterday the left lung was well aerated. Edgardo Mayorga MD Chest CT 01/08/17 0600 Signed Impressions: Service Date/Time: Sunday, January 08, 2017 08:46 - CONCLUSION: Massive cardiomegaly with panchamber enlargement extensive coronary calcifications. Stable trace pericardial effusion. Increasing bibasilar consolidative changes with minimal bilateral pleural effusions.. Rhys Fritz MD FACR Thoracentesis 01/08/17 0000 Signed Impressions: Service Date/Time: Sunday, January 08, 2017 16:08 - CONCLUSION: Uncomplicated CT-guided thoracentesis on the right. The left sided thoracentesis was not performed as there was no significant left pleural fluid. The abnormality on most recent chest x-ray was secondary to mucous plugging and left sided atelectasis. Edgardo Mayorga MD Objective Remarks GENERAL: 71-year-old male, critically ill-appearing obese male resting in rotarest bed SKIN: Warm and dry. No rash HEAD: Atraumatic. Normocephalic. EYES: Pupils equal and round, 3mm and reactive. No scleral icterus. No injection or drainage. ENT: Bilateral Rhino Rocket newly placed . Positive blood from mouth with suctioning NECK: Trachea midline. Unable to assess JVD secondary to body habitus. Large right-sided neck hematoma without midline shift. Evolving ecchymoses. Left subclavian central line is clean dry and intact CARDIOVASCULAR: Tachycardia, IR. S1, S2 no S4 without murmur RESPIRATORY: Diminished breath sounds throughout. Few crackles in bases bilaterally. Breath sounds equal bilaterally. GASTROINTESTINAL: Abdomen soft, obese non-tender, nondistended. I Magana bowel sounds MUSCULOSKELETAL: Extremities with 1+ peripheral edema. No obvious deformities. Posterior tibialis is palpable bilaterally. Right femoral Vas-Cath is clean dry and intact NEUROLOGICAL: Intubated and sedated. Follows commands moving extremities 4, when off sedation documented last Sunday. Date of Insertion: January 05, 2017 Date of Insertion: January 17, 2017 Line: Central Venous Catheter Side: Left Location: Subclavian, Jugular A/P Assessment and Plan Neuro/Psych: Epistaxis Continue with Fentanyl and Versed infusion for sedation in addition patient is on Nimbex. Maintain [id number] 2 out of 4/BIS 40-60 Goal of RASS -5 01/12 New onset epistaxis, heparin discontinued Epistaxis-ENT consulted-nasal balloons in situ maintain balloons until 01/20 per ENT recommendation. Removed 01/20 but resumed bleeding so replaced yesterday - 01/21 ENT following - Dr. Byrd. Respiratory: Acute hypoxic respiratory failure Left lung consolidation 2/2 previous event of epistaxis, clotted blood left lung -resolved SONU Probable aspiration Possible multilobar [id number] Bilateral pleural effusions Continue with vent support keep sat >92% On PC/AC RR 16, IP:14, IT:1.50, PEEP;10, FIO2 50, decrease FIO2 40% Currently on Xopenex and Atrovent aerosols every 6 hours ICU vent bundle. Pulmonology following- Dr. Burch Solu-Medrol 20 mg IV BID, off Flolan 01/08-right CT-guided thoracentesis-400 cc removed, sent for cytology and cultures s/p bronch . by- Dr. Burch for blood clots left lung Status post bronch 01/17 by award clerk - bloody mucous plug at saturnino/mainstem section cleared. No obvious source of bleeding. CV: A. fib with RVR Left atrial appendage thrombus Cardiomyopathy Acute Systolic CHF Hypertension Dyslipidemia On Amiodarone 200 mg twice a day, Coreg 6.25mg BID. Monitor HR and BP keep MAP> 65mmHg 01/13- Heparin, ASA discontinued due to epistaxis 01/05 VLADIMIR( Telephonic Nurse)-left atrial thrombus EF 15-20%. Systolic function reduced. Diffuse hyperkinesis. 12/26 [facility] severe systolic dysfunction EF 1015%, mitral valve mild to moderate regurg, LAE, tricuspid Valve-mild to moderate regurg, small pericardial effusion, 12/19 cardiac cath left circumflex 90% occlusion Management per Cardiology -Dr. Jimenez 01/15 started on Coreg 6.25 mill grams by mouth twice a day. We'll restart Coreg at 3.125 twice a day as off vasopressors At home on Coreg 25 mg twice a day, aspirin 81 mg daily, hydralazine 25 mg twice a day and HCTZ25 mg by mouth daily Renal: Acute on chronic kidney disease stage IV Nephrology following-Dr. Hahn Monitor renal function, I/O's, avoid nephrotoxins. Vascath placement Hemodialysis initiated 01/14. s/p HD 01/24 with removal 4.5L Cr:4.08 from 4.44, UO: 600ml in 24 hrs FEN/GI: Morbid obesity Hyperkalemia Hyperphosphatemia Resume Tube feeds( Nepro with goal rate @50 cc) KUB abdomen 01/21: Non diagnostic study Prevacid for GI prophylaxis Bowel Colace/Senokot twice a day. On Reglan 5 every 8 and erythromycin 200 every 8 for bowel motility/prokinetic PhosLo 667 3 times a day Heme: Leukocytosis Normocytic anemia Thrombocytopenia Monitor CBC. Transfused 3 units PRBCs on admission Weakly positive HIT panel-CLIFFORD is negative. Due to gross hematuria and epistaxis all anticoagulants on hold currently. Hematology is following ID: Likely aspiration pneumonia 01/06 urine, sputum, blood cultures-NGTD 01/06-Legionella urine antigen negative 01/09 - bronchoscopy - yeast/ID to follow 01/12 - blood cultures 2 - no growth 01/20 - blood cultures 2 - pending Off ID per ID ( s/p Cefepime/Flagyl) -Dr. Gage following, -Monitor for signs of infections ( Fever, WBC) -Recent cultures- NGTD Endocrine: Close monitoring per ICU protocol-medium dose regimen -- SSI Accu-Cheks every 6 hours for glycemic control Prophylaxis: GI Prophylaxis Prevacid 30 mg at night DVT Prophylaxis -- SCDs, Lines: Peripheral IV's. Right femoral HD catheter 01/19, Left subclavian CVL 01/17 Dispo: is Olena Muhmamad [id number] Discussed ACCESS DEVELOPERtransonic engineer: The total critical care time was 35 minutes. Time to perform other separately billable procedures was not included in the critical care time. Ari Betancourt MD January 25, 2017 07:49
[2017-01-25 07:58] LABS: BANDS 9 % (0-6); MYELOCYTES 1 % (0-0); NEUTROPHIL # MANUAL DIFF 8.6 TH/MM3 (1.8-7.7); PLATELET ESTIMATE SMEAR LOW (NORMAL); PLATELET MORPHOLOGY NORMAL (NORMAL); POLYS (SEG NEUTROPHILS) 83 % (16-70); WBC DIFF SAMPLE 100
[2017-01-25 07:59] LABS: OVALOCYTES 1+ (NORMAL); SCAN/DIFF FINAL DIFF MANUAL
[2017-01-25] MEDS: CALCIUM ACETATE 667 MG CAP PO SCH ×3 (08:46→17:19)
[2017-01-25] MEDS: methylPREDNISolone SOD SUCC 40 MG/1 ML VIAL IV PUSH SCH ×2 (08:46→21:21)
[2017-01-25] MEDS: DOCUSATE SODIUM 100 MG/10 ML UDC PO SCH ×2 (08:46→21:21)
[2017-01-25] MEDS: SENNOSIDES SYRUP 8.8 MG/5 ML CUP PO SCH ×2 (08:46→21:22)
[2017-01-25] MEDS: LANSOPRAZOLE SOLUTAB 30 MG TAB NG SCH (08:47)
[2017-01-25] MEDS: AMIODARONE 200 MG TAB PO SCH ×2 (08:47→21:21)
[2017-01-25] MEDS: CARVEDILOL 6.25 MG TAB PO SCH ×2 (08:47→21:22)
[2017-01-25 09:35] LABS: BLOOD GAS BASE EXCESS -4.6 mmol/L (-2-2); BLOOD GAS CARBOXYHEMOGLOBIN 1.8 % (0-4); BLOOD GAS HCO3 18 mmol/L (22-26); BLOOD GAS METHEMOGLOBIN 1.6 % (0-2); BLOOD GAS O2 HGB SATURATION 93 % (90-100); BLOOD GAS OXYGEN CONTENT 10.8 Vol % (12.0-20.0); BLOOD GAS PCO2 22 mmHg (38-42); BLOOD GAS PO2 88 mmHg (61-120); BLOOD GAS TOTAL HGB 8.1 G/DL (12.0-16.0); CRITICAL VALUE YES; OXYGEN DEVICE VENTILATOR; TEMP CORR TO 98.6
[2017-01-25 09:36] LABS: DRAW SITE ART LINE; FIO2 40 %; NUMBER OF ARTERIAL PUNCTURES 0; STAT NO; ULNAR PULSE PRESENT; VENT SETTINGS PC/AC
--- NOTE | 2017-01-25 10:41 | HHI.NPPN ---
Subjective General Problems: Anemia, Edema, Heart Disease Renal Failure: Acute History of Present Illness 71-year-old the white male the who is transferred from [facility] to [facility] due to atrial fibrillation with fast ventricular response, he was in the heart catheterization lab and became unstable has to intubated the patient has chronic kidney disease, Cardiomyopathy ejection fraction of only 15% and has severe dilated cardiomyopathy with the clot in left atrium he is on heparin drip and currently on ventilator. Additional Remarks Patient remain on the vent. and sedated, intubated or [place] prone bed, was on 40 % Fio2.but recent ABG poor gases back on 100% Objective Data Data 01/24/17 01/25/17 19:00 07:00 Intake Total 999 ml 966 ml Output Total 4800 ml 500 ml Balance -3801 ml 466 ml IV Total 879 ml 966 ml Tube Feeding 0 ml Other 120 ml Output Urine Total 200 ml 400 ml Stool Total 100 ml Gastric Drainage Total 100 ml Hemodialysis 4500 ml # Bowel Movements 0 Vital Signs Date Time Temp Pulse Resp B/P Pulse Ox O2 Delivery O2 Flow Rate FiO2 01/25/17 09:40 97 40 01/25/17 08:02 95 40 01/25/17 06:00 125 01/25/17 04:05 98 50 01/25/17 04:00 98.1 126 16 164/99 100 186/103 01/25/17 04:00 126 164/99 186/103 01/25/17 04:00 126 01/25/17 02:00 119 01/25/17 00:01 97 50 01/25/17 00:00 98.3 120 16 134/88 97 168/85 01/25/17 00:00 50 01/25/17 00:00 120 134/88 168/85 01/25/17 00:00 120 01/24/17 22:00 124 01/24/17 22:00 50 01/24/17 21:40 95 100 01/24/17 21:30 98.4 117 16 170/93 94 161/83 01/24/17 20:00 94 50 01/24/17 19:30 98.4 122 16 169/122 95 176/84 01/24/17 19:30 95 Mechanical Ventilator 50 01/24/17 19:30 50 01/24/17 19:00 121 01/24/17 16:05 93 50 01/24/17 15:00 92 Mechanical Ventilator 50 01/24/17 15:00 50 01/24/17 15:00 98.9 109 16 135/92 92 169/67 01/24/17 15:00 109 01/24/17 14:19 93 50 01/24/17 11:00 50 01/24/17 11:00 96 Mechanical Ventilator 40 01/24/17 11:00 113 01/24/17 11:00 98.7 113 16 119/87 93 132/67 -: 01/25/17 0530 01/25/17 0530 Physical Exam General Appearance: Well Developed Eyes Eye Exam: Pupils Equal Throat Throat Exam: Oral Mucosa [place] & Moist Pulmonary Resp Exam: Rhonchi, Decreased Bases, Diminished Breath Sounds Cardiology CV Exam: Arrhythmia Gastrointestinal/Abdomen GI Exam: Soft, Non-Tender, Distended Extremeties Extremities Exam: Moderate Edema, Pitting Edema, Dependent Edema Neurologic Neuro Exam: Sedated Assessment/Plan Problem List: (1) Acute renal failure Plan: Patient urine out put is lower He has poor ejection fraction and is intubated Severe cardiomyopathy prognosis is guarded. hemodialysis UF 4.5 Liters yesterday UOP 600 CC will do dialysis today as back to 100% ABG showed worsening Urine out put remain low. BUN and Creatinine are better post dialysis (2) CKD (chronic kidney disease) stage 4, GFR 15-29 ml/min Plan: Has high creatinine kidney ultrasound reviewed (3) CHF (congestive heart failure) Plan: Severe cardiomyopathy EF 15% (4) Atrial fibrillation with rapid ventricular response Plan: Has a blood clot in [place] appendage (5) Thrombocytopenia Plan: platelets 60 k Problem Qualifiers (1) CHF (congestive heart failure): Christa Hahn MD January 25, 2017 10:41
[2017-01-25 10:54] LABS: BLOOD GAS BASE EXCESS -5.7 mmol/L (-2-2); BLOOD GAS CARBOXYHEMOGLOBIN 1.3 % (0-4); BLOOD GAS HCO3 20 mmol/L (22-26); BLOOD GAS METHEMOGLOBIN 1.5 % (0-2); BLOOD GAS O2 HGB SATURATION 49 % (90-100); BLOOD GAS OXYGEN CONTENT 6.4 Vol % (12.0-20.0); BLOOD GAS PCO2 41 mmHg (38-42); BLOOD GAS PO2 37 mmHg (61-120); BLOOD GAS TOTAL HGB 9.3 G/DL (12.0-16.0); CRITICAL VALUE YES; OXYGEN DEVICE VENTILATOR; TEMP CORR TO 98.6
[2017-01-25 10:55] LABS: DRAW SITE ART LINE; FIO2 40 %; NUMBER OF ARTERIAL PUNCTURES 0; STAT NO; ULNAR PULSE PRESENT; VENT SETTINGS PRVC/AC
[2017-01-25] MEDS: SODIUM CHLORIDE 0.9% FLUSH 10 ML FLUSH IV FLUSH SCH ×2 (10:55→21:21)
[2017-01-25] MEDS: SODIUM CHLORIDE 0.9% FLUSH 10 ML FLUSH IVF SCH (10:56)
[2017-01-25] MEDS: CHLORHEXIDINE 0.12% (ORAL KIT) 15 ML CUP MT SCH ×2 (10:56→21:20)
--- NOTE | 2017-01-25 11:29 | RADRPT ---
EXAM DATE/TIME: 01/25/2017 11:04 [place] COMPARISON: CHEST SINGLE AP, January 25, 2017, 4:40. INDICATIONS : Short of breath. MEDICAL HISTORY : Hypertension. SURGICAL HISTORY : Coronary artery stent. ENCOUNTER: Subsequent ACUITY: 1 month PAIN SCORE: Non-responsive. LOCATION: Bilateral chest FINDINGS: Portable AP view of the chest demonstrate stable mild enlargement of the cardiac silhouette. A subcla vian central line tip is in likely in the left brachiocephalic vein near the SVC junction. Endotrache al tube and nasogastric tube remain present. There is stable left basilar pleural-parenchymal opacity . No pneumothorax is visualized. CONCLUSION: Stable chest x-ray with left basilar opacity which could represent atelectasis, effusion, and/or airs pace consolidation. Daniel Reyes MD on January 25, 2017 at 11:26 Board Certified Radiologist. This report was verified electronically.
[2017-01-25] MEDS: RESP: ACETYLCYSTEINE 10% 30 ML NEB NEB SCH ×3 (12:00→21:29)
--- NOTE | 2017-01-25 12:49 | HHI.PR ---
Subjective Remarks Sedated on Vent support , Now on PEEP 10. FIO2 at 100%. Had Desaturation early today and CXR shows increased left chest atelectasis No active bleeding. Will have dialysis Objective Vital Signs Date Time Temp Pulse Resp B/P Pulse Ox O2 Delivery O2 Flow Rate FiO2 01/25/17 11:02 0 100 01/25/17 09:40 97 40 01/25/17 08:02 95 40 01/25/17 06:00 125 01/25/17 04:05 98 50 01/25/17 04:00 98.1 126 16 164/99 100 186/103 01/25/17 04:00 126 164/99 186/103 01/25/17 04:00 126 01/25/17 02:00 119 01/25/17 00:01 97 50 01/25/17 00:00 98.3 120 16 134/88 97 168/85 01/25/17 00:00 50 01/25/17 00:00 120 134/88 168/85 01/25/17 00:00 120 01/24/17 22:00 124 01/24/17 22:00 50 01/24/17 21:40 95 100 01/24/17 21:30 98.4 117 16 170/93 94 161/83 01/24/17 20:00 94 50 01/24/17 19:30 98.4 122 16 169/122 95 176/84 01/24/17 19:30 95 Mechanical Ventilator 50 01/24/17 19:30 50 01/24/17 19:00 121 01/24/17 16:05 93 50 01/24/17 15:00 92 Mechanical Ventilator 50 01/24/17 15:00 50 01/24/17 15:00 98.9 109 16 135/92 92 169/67 01/24/17 15:00 109 01/24/17 14:19 93 50 I/O 01/24/17 01/24/17 01/24/17 01/25/17 01/25/17 01/25/17 07:00 15:00 23:00 07:00 15:00 23:00 Intake Total 1040 ml 1416 ml 549 ml Output Total 875 ml 4500 ml 550 ml 250 ml Balance 165 ml -4500 ml 866 ml 299 ml Intake Oral 0 ml IV Total 988 ml 1296 ml 549 ml Tube Feeding 52 ml 0 ml Other 120 ml Output Urine Total 300 ml 350 ml 250 ml Stool Total 25 ml 100 ml Gastric Drainage Total 550 ml 100 ml Hemodialysis 4500 ml # Bowel Movements 0 Result Diagram: 01/25/1752901/25/17529 Objective Remarks GENERAL: This is an obese, elderly man who is intubated, sedated, assisting the ventilator. HEENT: Head is normocephalic. Pupils are reactive. NECK: Supple with neck hematoma on right. Trachea is midline. CHEST: Decreased breath sounds with crackles at both lung bases.Occ wheeze heard. Decreased breath sounds on left HEART: The heart sounds are irregular S1-S2. No murmur. ABDOMEN: Soft. Obese without masses. No organomegaly. EXTREMITIES: 1 + edema. Decreased peripheral pulses. Reflexes are not elicited. The patient is sedated. SKIN: Dry and cool. Assessment and Plan Assessment and Plan IMPRESSION 1. Hypoxic respiratory failure. 2. Left lower lobe atelectasis and possible pneumonia with aspiration. 3. Left pleural effusion resolved. 4. Cardiomyopathy and congestive heart failure. 5. Obstructive sleep apnea. 6. Diabetes mellitus. 7. Atrial fibrillation. 8. Nasopharyngeal bleed Plan : 1. Wean FIO2 to keep sat >90. 2. PEEP to 10 CM, FIO2 to 100 % 3. Antibiotics per ID. 4. CBC CXR ,BMP in am. 5. Nebs qid , duoneb. 6. Will Do Bronchoscopy to lavage and clean left chest 7. Tube feeds at 50 CC 8. Solumedrol 20 mg IV q12h 9. Hold anticoagulant 10. Plan Tracheostomy soon Julius Burch MD January 25, 2017 12:49
[2017-01-25] MEDS: EPOETIN ALFA 4,000 UNITS/ML VIAL IV PRN (14:05)
[2017-01-25] MEDS: GENTAMICIN SULFATE (DIALYSIS USE ONLY) 20 MG/2 ML VIAL IV PRN (15:05)
[2017-01-25] MEDS: RESP: ALBUTEROL 2.5 MG/IPRATROPIUM 0.5 MG NEB (PRN) NEB (16:10)
[2017-01-25] MEDS: fentaNYL DRIP 250 ML IV SCH (17:20)
[2017-01-26] VITALS (21 sets, daily range): BP systolic 89–148; BP diastolic 56–94; PULSE 128–150; RESP 18–19; TEMP 97.1–99.1; O2SAT 92–100
[2017-01-26] MEDS: CHLORHEXIDINE GLUCONATE 2 % 1 PACK (2 CLOTHS) TOP SCH (04:00)
[2017-01-26] MEDS: RESP: IPRATROPIUM 0.5 MG/2.5 ML NEB NEB SCH ×4 (04:09→19:25)
[2017-01-26] MEDS: RESP: ACETYLCYSTEINE 10% 30 ML NEB NEB SCH ×4 (04:10→19:26)
[2017-01-26 05:44] LABS: BASOPHIL % 0.4 % (0.0-2.0); EOSINOPHIL % 0.2 % (0.0-4.0); LYMPH % 3.3 % (9.0-44.0); LYMPHOCYTE # 0.3 TH/MM3 (1.0-4.8); MEAN CELL VOLUME 87.9 FL (80.0-100.0); MEAN CORPUSCULAR HEMOGLOBIN 29.2 PG (27.0-34.0); MEAN CORPUSCULAR HGB CONC 33.3 % (32.0-36.0); MONO % 3.5 % (0.0-8.0); NEUT % 92.6 % (16.0-70.0); PLATELET COUNT 59 TH/MM3 (150-450); RED BLOOD COUNT 2.73 MIL/MM3 (4.50-5.90); RED CELL DISTRIBUTION WIDTH 16.5 % (11.6-17.2); WHITE BLOOD COUNT 9.8 TH/MM3 (4.0-11.0)
[2017-01-26 05:49] LABS: HEMO FLAGS AUTO DIFF
[2017-01-26 05:55] LABS: BICARBONATE 22.7 MEQ/L (21.0-32.0); POTASSIUM 4.7 MEQ/L (3.5-5.1)
[2017-01-26] MEDS: INSULIN ASPART SUPPLEMENTAL SCALE SQ SCH ×4 (06:00→18:00)
[2017-01-26] MEDS: ARTIFICIAL TEARS OPTH SOLN 15 ML BTL EACH EYE SCH ×3 (06:29→20:35)
[2017-01-26] MEDS: METOCLOPRAMIDE HCL 10 MG/2 ML VIAL IV PUSH SCH ×3 (06:30→20:35)
[2017-01-26 07:07] LABS: BANDS 5 % (0-6); METAMYELOCYTES 1 % (0-1); MYELOCYTES 1 % (0-0); NEUTROPHIL # MANUAL DIFF 9.4 TH/MM3 (1.8-7.7); POLYS (SEG NEUTROPHILS) 89 % (16-70); WBC DIFF SAMPLE 100
[2017-01-26 07:08] LABS: OVALOCYTES 1+ (NORMAL); PLATELET ESTIMATE SMEAR LOW (NORMAL); PLATELET MORPHOLOGY NORMAL (NORMAL); SCAN/DIFF FINAL DIFF MANUAL
--- NOTE | 2017-01-26 08:05 | HHI.CCPN ---
Subjective Remarks/Hospital Course This is a 71-year-old gentleman that presented to [facility] secondary to dyspnea and atrial fibrillation with RVR. The patient has a medical history significant for obesity and hypertension. During his hospitalization at [facility], the patient underwent an echocardiogram which showed severe systolic dysfunction with an ejection fraction of 1015 % the patient then underwent a cardiac catheterization showing significance with left circumflex 90%. The patient underwent multiple attempts of unsuccessful synchronized cardioversion. The patient also underwent medical management with beta blockers, and calcium channel blockers that were also unsuccessful. The patient was transferred to [facility] for cardiac ablation with Dr. Jimenez. The patient was scheduled for cardiac ablation, the procedure was canceled. The patient required emergent intubation and required ventilator management a VLADIMIR was performed showing a clot in the left atrial appendage. The patient was placed on IV Cardizem, and an amiodarone infusion. Critical Care medicine was consulted for management. 01/06: Tmax 97.4. The patient remained on elevated vent settings with FiO2 of 1.0 overnight, PEEP requirements were increased to 8, to maintain a PaO2 of greater than [address] scan of the chest was obtained which noted bilateral effusions small, basilar consolidations right worse than the left, and a loculated area representing a possible pneumonia process, empyema, as well as aspiration or just loculated fluid as well as a small pericardial effusion. The patient continues on Cardizem and amiodarone infusions with a heart rate overnight 80s -115. The patient's vasopressor requirements of phenylephrine diminished to 20 mcgs. 01/07: Tmax 99.2. Yesterday the central line was placed for vasoactive medications and CVP monitoring, small hematoma noted near the right IJ area soft no compression of major vessels, with resolution of bleeding in that area. Phenylephrine was discontinued yesterday. The patient heart rate remains today [id number]. Cardizem infusion has been discontinued in the setting of EF of 10-15%. Esmolol infusion to be initiated this a.m.. Coumadin was initiated last night now placed on hold due to patient bleeding from nasopharynx and oropharynx. INR currently 1.2. Plan for CT thorax tomorrow, with possible IR intervention versus CVT consultation for possible empyema the patient will remain on heparin infusion, and transition onto Coumadin after any potential procedures to be initiated. Chest x-ray slightly improved FiO2 decreasing now 70%. Sedation vacation yesterday revealed GCS 11 T, patient alert responsive following commands. With initiation of antibiotics, leukocytosis resolved. ID consulted Dr. Gage. Blood cultures are pending. 01/08: Patient's heart rate 110-[address] scan of the chest imaging revealed fluid. Plan for thoracentesis and and studies of pleural fluid , this afternoon. The patient remains on amiodarone and heparin infusions, per cardiology. Heparin held, for thoracentesis this afternoon, and then will be resumed. The patient was maintained on CPAP trial for approximately one hour yesterday. During sedation vacation patient was alert following commands recognizing family. Plan to resume CPAP trials this afternoon post thoracentesis. 01/09: The patient underwent CT-guided thoracentesis yesterday , on the right side noted 400 cc of fluid was removed , with specimens ordered to be sent for evaluation .This morning chest x-ray performed showing almost complete opacification of the left lung. FiO2 requirements increase patient on FiO2 of 80%, O2 sat 94%. Left chest ultrasound obtained revealing no fluid. Consent obtained BAL performed, revealing emanating from the nearest previously ( patient was noted to have epistaxis with initiation of heparin on 01/06). Blood clots noted in left lung upon visualization with bronchoscopy, saline lavage applied, minimal blood clots removed. The patient was initiated on Mucomyst 10% , and pulmonology was consulted. Dr. Tasia Lama following. The patient shows no signs or evidence of bleeding actively, plan to consult ENT if signs of active bleeding become evident. Hemoglobin remains stable.The patient converted into sinus rhythm is today afternoon. Cardiology management of medications, IV amiodarone discontinued this afternoon. 01/10: Tmax 99.0. Chest x-ray shows slight improvement of left lung today. Plan for repeat bronchoscopy per Dr. Burch this a.m, and the patient continues on Mucomyst. The patient's cardiac rhythm reverted to A. fib last evening, amiodarone IV infusion reinstituted per Dr. Jimenez. 01/11: TMax 100.0. Much improved chest x-ray this morning. The patient continues in A. fib with a rate of 120, he continues on amiodarone, heparin infusion per cardiology. No evidence of active bleeding. 5/12 Patient Remains sedated with Diprivan, intubated. T:99.9. On Neosyn 15 mics , heparin and Amio drips. In Afib with RRV. Patient s/p repeat bronch with BAL yesterday by Dr. Burch and ETT replacement by Dr. Sanchez. On PC/AC with PEEP:14 , FIO2 100%. 01/13: TMax 100.2. Last night the nurse reported that the patient had a small amount of epistaxis, and blood in the oropharynx noted. The area continued to bleed during the night. ENT has been consulted. Heparin has been placed on hold , ASA has been discontinued in the setting of acute renal failure. The patient continues on amiodarone infusion , heart rate 120's. Neosynephrine has been discontinued, and Levophed instituted. Creatinine noted to be 4.5. As per report , states patient does not want dialysis. The patient continues on elevated PEEP of 14. 5/14: Heparin was discontinued yesterday in the setting of continued bleeding in the nasal/ oropharyngeal region. ENT was consulted and nasal packing was applied. During the night the patient still had small noted amount of bleeding from the oropharyngeal area plan today for oropharyngeal packing. Hgb 9, will transfuse .The patient was placed on norepinephrine for currently at 1-2 mcgs per minute. PEEP has been decreased to 12, with adequate oxygenation a PaO2 of 71. 5/15: Tmax 99.0. The patient continues to be anemic and thrombocytopenic, contributory factors being uremia. The patient's /family decided to pursue hemodialysis at this point. The patient received 1 unit of packed red blood cells yesterday. The patient was initiated on dialysis yesterday afternoon, with approximately 3 L removed. Nasal gauze packing removed and placement of nasal balloons by ENT yesterday. Oral gauze packing to be removed today. The patient received 2 separate doses of digoxin, A. fib heart rate ranging 80- < 120. The patient continues to have high ventilatory requirements, FiO2 was increased throughout the night to currently 80%, to maintain O2 sat greater than 92%. 01/16: FiO2 at 85%. Large clots removed from oropharynx overnight. Transfused 2 units PRBCs yesterday. No bowel movement. Tolerating tube feeds at 40 cc now with Nepro 01/17: Maximum 100.6. CURRENT TEMPERATURE 98.1. Central line pulled out yesterday. Flolan initiated yesterday and FiO2 down to 65%. Tolerating tube feeds. No bowel movement. Arousable weakly follow commands yesterday 01/18: Tmax 99.8. Currently afebrile. Initially, hemoptysis with desaturation requiring bronchoscopy. See bronchoscopy note. Roto-Rest bed ordered. FiO2 from 100-70% currently. On Nimbex drip. No BM. Tolerating tube feeds. 01/19: Afebrile. FiO2 down to 40%. We will attempt a wean Flolan today. On Nimbex drip. Positive BM yesterday. Tolerating tube feeds. 01/20: FiO2 back to 100%. Flolan "fell off "overnight. Ventilator adjusted back to 100%. Flolan reinstituted. Chest x-ray and ABG pending. Tolerating tube feeds. Positive BM. Afebrile. Subjective: 01/21: Intolerant of tube feeding. KUB pending. Afebrile. Bleeding from bilateral nares and Alanis overnight. Argatroban has been held. Positive BM. 01/22 Patient is sedated with Fentanyl , versed in addition he is on Nimbex. Receiving HD. TF on hold for high residuals. 01/23 Patient is on Roto prone bed sedated and intubated. s/p HD yesterday with removal 3L. On Nimbex, afebrile. 01/24 Patient remains sedated with Versed, Fentanyl and remains on Nimbex. On PC/ AC with PEEP: 10, FIO2 down 40%. For HD today. Afebrile. 01/25 Patient remains sedated and intubated . On PC/AC with PEEP: 10 and FIO2 50% . s/p HD yesterday with removal 4.5L. Afebrile. 01/26 Patient is sedated with Fentanyl off versed and Nimbex. s/p bronch yesterday by Dr. Burch. On PRVC/AC with PEEP: 10 and FIO2 down to 50% s/p HD yesterday with removal 1.5. For another HD session today. Objective Vital Signs Date Time Temp Pulse Resp B/P Pulse Ox O2 Delivery O2 Flow Rate FiO2 01/26/17 07:35 98 50 01/26/17 06:00 128 01/26/17 04:00 98.7 18 106/58 89/68 01/25/17 19:36 Ventilator Intake and Output 01/25/17 01/25/17 01/26/17 08:00 16:00 00:00 Intake Total 549 ml 115 ml Output Total 250 ml 1500 ml 100 ml Balance 299 ml -1500 ml 15 ml Result Diagram: 01/26/17 0409 01/26/17 0409 Other Results Laboratory Tests Test 01/25/17 01/25/17 01/26/17 09:25 10:34 04:09 Blood Gas Puncture Site ART LINE ART LINE Blood Gas Patient Temperature 98.6 98.6 Blood Gas HCO3 18 mmol/L 20 mmol/L Blood Gas Base Excess -4.6 mmol/L -5.7 mmol/L Blood Gas Oxygen Saturation 93 % 49 % Arterial Blood pH 7.53 7.30 Arterial Blood Partial 22 mmHg 41 mmHg Pressure CO2 Arterial Blood Partial 88 mmHg 37 mmHg Pressure O2 Arterial Blood Oxygen Content 10.8 Vol % 6.4 Vol % Arterial Blood 1.8 % 1.3 % Carboxyhemoglobin Arterial Blood Methemoglobin 1.6 % 1.5 % Blood Gas Hemoglobin 8.1 G/DL 9.3 G/DL Oxygen Delivery Device VENTILATOR VENTILATOR Blood Gas Ventilator Setting PC/AC PRVC/AC Blood Gas Inspired Oxygen 40 % 40 % White Blood Count 9.8 TH/MM3 Red Blood Count 2.73 MIL/MM3 Hemoglobin 8.0 GM/DL Hematocrit 24.0 % Mean Corpuscular Volume 87.9 FL Mean Corpuscular Hemoglobin 29.2 PG Mean Corpuscular Hemoglobin 33.3 % Concent Red Cell Distribution Width 16.5 % Platelet Count 59 TH/MM3 Mean Platelet Volume 10.7 FL Neutrophils (%) (Auto) 92.6 % Lymphocytes (%) (Auto) 3.3 % Monocytes (%) (Auto) 3.5 % Eosinophils (%) (Auto) 0.2 % Basophils (%) (Auto) 0.4 % Neutrophils # (Auto) 9.0 TH/MM3 Lymphocytes # (Auto) 0.3 TH/MM3 Monocytes # (Auto) 0.3 TH/MM3 Eosinophils # (Auto) 0.0 TH/MM3 Basophils # (Auto) 0.0 TH/MM3 CBC Comment AUTO DIFF Differential Total Cells 100 Counted Neutrophils % (Manual) 89 % Band Neutrophils % 5 % Lymphocytes % 3 % Monocytes % 1 % Neutrophils # (Manual) 9.4 TH/MM3 Metamyelocytes 1 % Myelocytes 1 % Differential Comment FINAL DIFF MANUAL Platelet Estimate LOW Platelet Morphology Comment NORMAL Ovalocytes 1+ Sodium Level 139 MEQ/L Potassium Level 4.7 MEQ/L Chloride Level 101 MEQ/L Carbon Dioxide Level 22.7 MEQ/L Anion Gap 15 MEQ/L Blood Urea Nitrogen 107 MG/DL Creatinine 4.24 MG/DL Estimat Glomerular Filtration 14 ML/MIN Rate Random Glucose 103 MG/DL Calcium Level 7.5 MG/DL Imaging Last Impressions Chest X-Ray 01/25/17 0600 Signed Impressions: Service Date/Time: January 04:40 - CONCLUSION: Tubes and catheters in good position. Persistent consolidation left lower lobe Orlin Mascorro MD Abdomen X-Ray 01/21/17 0000 Signed Impressions: Service Date/Time: Saturday, January 21, 2017 08:41 - CONCLUSION: Nondiagnostic study. Gurvinder Collier MD Renal Ultrasound 01/09/17 0000 Signed Impressions: Service Date/Time: Monday, January 09, 2017 13:56 - CONCLUSION: 1. Right kidney is sonographically normal. 2. Benign-appearing 2.4 x 1.5 cm cortical cyst in the midpole of the left kidney. 3. Subcentimeter echogenic, non-shadowing foci in the midpole of the left kidney would be unusual for stones and may represent ectopic hilar fat. No hydronephrosis. 4. Urinary bladder is decompressed with a Alanis catheter. Douglas Ward MD Chest Ultrasound 01/09/17 0000 Signed Impressions: Service Date/Time: Monday, January 09, 2017 08:18 - CONCLUSION: No left-sided pleural effusion. The abnormality in the left chest on chest radiograph is likely related to mucous plugging. When patient had a CT scan yesterday the left lung was well aerated. Edgardo Mayorga MD Chest CT 01/08/17 0600 Signed Impressions: Service Date/Time: Sunday, January 08, 2017 08:46 - CONCLUSION: Massive cardiomegaly with panchamber enlargement extensive coronary calcifications. Stable trace pericardial effusion. Increasing bibasilar consolidative changes with minimal bilateral pleural effusions.. Rhys Fritz MD FACR Thoracentesis 01/08/17 0000 Signed Impressions: Service Date/Time: Sunday, January 08, 2017 16:08 - CONCLUSION: Uncomplicated CT-guided thoracentesis on the right. The left sided thoracentesis was not performed as there was no significant left pleural fluid. The abnormality on most recent chest x-ray was secondary to mucous plugging and left sided atelectasis. Edgardo Mayorga MD Objective Remarks GENERAL: 71-year-old male, critically ill-appearing obese male resting in rotarest bed SKIN: Warm and dry. No rash HEAD: Atraumatic. Normocephalic. EYES: Pupils equal and round, 3mm and reactive. No scleral icterus. No injection or drainage. ENT: Bilateral Rhino Rocket newly placed . Positive blood from mouth with suctioning NECK: Trachea midline. Unable to assess JVD secondary to body habitus. Large right-sided neck hematoma without midline shift. Evolving ecchymoses. Left subclavian central line is clean dry and intact CARDIOVASCULAR: Tachycardia, IR. S1, S2 no S4 without murmur RESPIRATORY: Diminished breath sounds throughout. Few crackles in bases bilaterally. Breath sounds equal bilaterally. GASTROINTESTINAL: Abdomen soft, obese non-tender, nondistended. I Magana bowel sounds MUSCULOSKELETAL: Extremities with 1+ peripheral edema. No obvious deformities. Posterior tibialis is palpable bilaterally. Right femoral Vas-Cath is clean dry and intact NEUROLOGICAL: Intubated and sedated. Follows commands moving extremities 4, when off sedation documented last Sunday. Date of Insertion: January 05, 2017 Date of Insertion: January 17, 2017 Line: Central Venous Catheter Side: Left Location: Subclavian, Jugular A/P Assessment and Plan Neuro/Psych: Epistaxis Continue with Fentanyl infusion for sedation. Off Versed and Nimbex. Daily sedation vacation when appropriate, 01/12 New onset epistaxis, heparin discontinued Epistaxis-ENT consulted-nasal balloons in situ maintain balloons until 01/20 per ENT recommendation. Removed 01/20 but resumed bleeding so replaced yesterday - 01/21 ENT following - Dr. Byrd. Respiratory: Acute hypoxic respiratory failure Left lung consolidation 2/2 previous event of epistaxis, clotted blood left lung -resolved SONU Probable aspiration Possible multilobar eurczurzm-[id number]-[id number] Bilateral pleural effusions Continue with vent support keep sat >92% On PRVC/AC RR 18, TV 600, IT:1.3, PEEP: 10, FIO2 50%. Decrease FIO2 40% as dennis. Currently on Xopenex and Atrovent aerosols every 6 hours ICU vent bundle. Mucomyst nebs Q6 Pulmonology following- Dr. Burch Solu-Medrol 20 mg IV BID, off Flolan 01/08-right CT-guided thoracentesis-400 cc removed, sent for cytology and cultures s/p bronch . by- Dr. 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 No obvious source of bleeding. s/p bronch 01/[address] Burch. -minimal secretions. CV: A. fib with RVR Left atrial appendage thrombus Cardiomyopathy Acute Systolic CHF Hypertension Dyslipidemia On Amiodarone 200 mg twice a day, Coreg 6.25mg BID. Monitor HR and BP keep MAP> 65mmHg 01/13- Heparin, ASA discontinued due to epistaxis 01/05 VLADIMIR( Toll Line Mechanic)-left atrial thrombus EF 15-20%. Systolic function reduced. Diffuse hyperkinesis. 12/26 [facility] severe systolic dysfunction EF 1015%, mitral valve mild to moderate regurg, LAE, tricuspid Valve-mild to moderate regurg, small pericardial effusion, 12/19 cardiac cath left circumflex 90% occlusion Management per Cardiology -Dr. Jimenez 01/15 started on Coreg 6.25 mill grams by mouth twice a day. We'll restart Coreg at 3.125 twice a day as off vasopressors At home on Coreg 25 mg twice a day, aspirin 81 mg daily, hydralazine 25 mg twice a day and HCTZ25 mg by mouth daily Renal: Acute on chronic kidney disease stage IV Nephrology following-Dr. Hahn Monitor renal function, I/O's, avoid nephrotoxins. Vascath placement Hemodialysis initiated 01/14. s/p HD 01/25 with removal 1.5L For another HD today Cr: 4.24 today from 4.08 FEN/GI: Morbid obesity Hyperkalemia Hyperphosphatemia On Tube feeds- Nepro advance to goal rate @50 cc/hr) KUB abdomen 01/21: Non diagnostic study Prevacid for GI prophylaxis Bowel Colace/Senokot twice a day. On Reglan 5 every 8 and erythromycin 200 every 8 for bowel motility/prokinetic PhosLo 667 3 times a day Heme: Leukocytosis Normocytic anemia Thrombocytopenia Monitor CBC. Transfused 3 units PRBCs on admission Weakly positive HIT panel-CLIFFORD is negative. Due to gross hematuria and epistaxis all anticoagulants on hold currently. Hematology is following ID: Likely aspiration pneumonia 01/06 urine, sputum, blood cultures-NGTD 01/06-Legionella urine antigen negative 01/09 - bronchoscopy - yeast/ID to follow 01/12 - blood cultures 2 - no growth 01/20 - blood cultures 2 - staph Epi 09/06 bottles- likely contaminant Off ID per ID ( s/p Cefepime/Flagyl) -Dr. Gage following, -Monitor for signs of infections ( Fever, WBC) -Recent cultures- NGTD Endocrine: Close monitoring per ICU protocol-medium dose regimen -- SSI Accu-Cheks every 6 hours for glycemic control Prophylaxis: GI Prophylaxis Prevacid 30 mg at night DVT Prophylaxis -- SCDs, Lines: Peripheral IV's. 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 Time to perform other separately billable procedures was not included in the critical care time. Ari Betancourt MD January 26, 2017 08:05
[2017-01-26] MEDS: CARVEDILOL 6.25 MG TAB PO SCH ×2 (09:00→20:35)
--- NOTE | 2017-01-26 09:33 | MR ---
cc: CORINA BURCH DATE: 01/26/2016 PROCEDURE Fiberoptic bronchoscopy with therapeutic aspiration and lavage. PREOPERATIVE DIAGNOSIS Atelectasis left lung. POSTOPERATIVE DIAGNOSIS Atelectasis left lung. Mucus plugging. ANESTHESIA IV fentanyl and Versed. SURGEON Dr. Gaby Burch PROCEDURE AND FINDINGS The patient was already intubated with a 7.5 ET tube, and the Olympus IT-30 bronchoscope was used to visualized the bronchi. The scope was advanced via the endotracheal tube into the trachea. The trachea and saturnino appeared normal. The scope was then advanced into the right main stem and right upper lobe segmental bronchi. The bronchi demonstrated thick mucoid secretions which were suctioned out. Saline washings and lavage were done. There was mild endobronchitis observed. The right middle and lower lobe segmental bronchi demonstrated a few mucoid secretions, these were suctioned out. Saline washings were done. There were no endobronchial lesions noted. Next, the scope was advanced into the left main stem and left upper lobe segmental bronchi. The left upper lobe bronchi were filled with mucoid plugs and these were suctioned out. Saline washings and lavage were done. The scope was then advanced into the left lower lobe segmental bronchi which demonstrated mucus plugs and thick mucoid and mucopurulent secretions. These were suctioned out. Saline washings and lavage were done. There was moderate endobronchitis of the underlying bronchi and some narrowing of the lumen of the bronchi. Saline lavage was carried out until clear and the procedure was then terminated. The patient tolerated the procedure well. He was placed on 100% oxygen throughout the procedure. MD JOSESITO Azul/LAVINIA /5:59 PM /9:19 AM
[2017-01-26] MEDS: LANSOPRAZOLE SOLUTAB 30 MG TAB NG SCH (09:56)
[2017-01-26] MEDS: SENNOSIDES SYRUP 8.8 MG/5 ML CUP PO SCH ×2 (09:56→20:35)
[2017-01-26] MEDS: CALCIUM ACETATE 667 MG CAP PO SCH ×3 (09:56→18:33)
[2017-01-26] MEDS: methylPREDNISolone SOD SUCC 40 MG/1 ML VIAL IV PUSH SCH ×2 (09:56→20:35)
[2017-01-26] MEDS: DOCUSATE SODIUM 100 MG/10 ML UDC PO SCH ×2 (09:56→20:35)
[2017-01-26] MEDS: fentaNYL DRIP 250 ML IV SCH ×2 (09:56→20:33)
[2017-01-26] MEDS: SODIUM CHLORIDE 0.9% FLUSH 10 ML FLUSH IVF SCH (09:57)
[2017-01-26] MEDS: AMIODARONE 200 MG TAB PO SCH ×2 (09:57→20:35)
[2017-01-26] MEDS: SODIUM CHLORIDE 0.9% FLUSH 10 ML FLUSH IV FLUSH SCH ×2 (09:57→20:34)
--- NOTE | 2017-01-26 10:31 | HHI.NPPN ---
Subjective General Problems: Anemia, Edema, Heart Disease Renal Failure: Acute History of Present Illness 71-year-old the white male the who is transferred from [facility] to [facility] due to atrial fibrillation with fast ventricular response, he was in the heart catheterization lab and became unstable has to intubated the patient has chronic kidney disease, Cardiomyopathy ejection fraction of only 15% and has severe dilated cardiomyopathy with the clot in left atrium he is on heparin drip and currently on ventilator. Additional Remarks Patient remain on the vent. and sedated, intubated or Roto prone bed, dialysis machine keep shutting off Objective Data Data 01/25/17 01/26/17 19:00 07:00 Intake Total 325 ml Output Total 1500 ml 150 ml Balance -1500 ml 175 ml IV Total 290 ml Tube Feeding 35 ml Output Urine Total 100 ml Stool Total 50 ml Hemodialysis 1500 ml Vital Signs Date Time Temp Pulse Resp B/P Pulse Ox O2 Delivery O2 Flow Rate FiO2 01/26/17 07:35 98 50 01/26/17 07:00 138 137/94 148/76 01/26/17 07:00 50 01/26/17 06:00 128 01/26/17 04:04 100 85 01/26/17 04:00 98.7 129 18 106/58 100 89/68 01/26/17 04:00 129 01/26/17 02:00 132 01/26/17 01:47 100 95 01/26/17 00:00 132 01/26/17 00:00 98.5 132 18 103/71 100 107/62 01/25/17 23:00 100 01/25/17 22:32 100 100 01/25/17 22:00 138 01/25/17 20:00 137 01/25/17 20:00 98.3 137 18 110/61 100 95/68 01/25/17 19:36 100 100 01/25/17 19:36 100 Ventilator 100 01/25/17 19:00 139 110/57 80/63 01/25/17 18:00 133 01/25/17 17:58 91 100 01/25/17 17:45 100 100 01/25/17 16:10 92 100 01/25/17 16:00 97.9 138 15 123/57 86 01/25/17 16:00 138 01/25/17 15:00 40 01/25/17 14:00 146 01/25/17 12:00 127 01/25/17 12:00 128 01/25/17 12:00 98.4 128 16 117/58 92 124/65 01/25/17 11:02 0 100 -: 01/26/17 0409 01/26/17 0409 Physical Exam General Appearance: Well Developed Eyes Eye Exam: Pupils Equal Throat Throat Exam: Oral Mucosa [place] & Moist Pulmonary Resp Exam: Rhonchi, Decreased Bases, Diminished Breath Sounds Cardiology CV Exam: Arrhythmia Gastrointestinal/Abdomen GI Exam: Soft, Non-Tender, Distended Extremeties Extremities Exam: Moderate Edema, Pitting Edema, Dependent Edema Neurologic Neuro Exam: Sedated Assessment/Plan Problem List: (1) Acute renal failure Plan: Patient urine out put is lower He has poor ejection fraction and is intubated Severe cardiomyopathy prognosis is guarded. hemodialysis dialysis machine keep shutting off due to clotting, used Citrasate dialysate no improvement talk with Dr. Betancourt, will use Argatroban intermittently with dialysis try dialysis later Fio2 50% Urine out put remain low. BUN and Creatinine are better post dialysis (2) CKD (chronic kidney disease) stage 4, GFR 15-29 ml/min Plan: Has high creatinine kidney ultrasound reviewed (3) CHF (congestive heart failure) Plan: Severe cardiomyopathy EF 15% (4) Atrial fibrillation with rapid ventricular response Plan: Has a blood clot in LA appendage (5) Thrombocytopenia Plan: platelets 60 k Problem Qualifiers (1) CHF (congestive heart failure): Christa Hahn MD January 26, 2017 10:31
[2017-01-26] MEDS: GENTAMICIN SULFATE (DIALYSIS USE ONLY) 20 MG/2 ML VIAL IV PRN ×2 (11:00→16:53)
[2017-01-26] MEDS ORDERED: ARGATROBAN 250 MG in NS 250 ML IV PRN (11:00)
[2017-01-26] MEDS: CHLORHEXIDINE 0.12% (ORAL KIT) 15 ML CUP MT SCH ×2 (11:39→20:33)
--- NOTE | 2017-01-26 12:27 | HHI.PR ---
Subjective Remarks Sedated on Vent support ,Back on PEEP 10. FIO2 at 50%. Better today and CXR shows left base atelectasis No active bleeding. Will have dialysis again Objective Vital Signs Date Time Temp Pulse Resp B/P Pulse Ox O2 Delivery O2 Flow Rate FiO2 01/26/17 11:43 96 50 01/26/17 07:35 98 50 01/26/17 07:00 138 137/94 148/76 01/26/17 07:00 50 01/26/17 06:00 128 01/26/17 04:04 100 85 01/26/17 04:00 98.7 129 18 106/58 100 89/68 01/26/17 04:00 129 01/26/17 02:00 132 01/26/17 01:47 100 95 01/26/17 00:00 132 01/26/17 00:00 98.5 132 18 103/71 100 107/62 01/25/17 23:00 100 01/25/17 22:32 100 100 01/25/17 22:00 138 01/25/17 20:00 137 01/25/17 20:00 98.3 137 18 110/61 100 95/68 01/25/17 19:36 100 100 01/25/17 19:36 100 Ventilator 100 01/25/17 19:00 139 110/57 80/63 01/25/17 18:00 133 01/25/17 17:58 91 100 01/25/17 17:45 100 100 01/25/17 16:10 92 100 01/25/17 16:00 97.9 138 15 123/57 86 01/25/17 16:00 138 01/25/17 15:00 40 01/25/17 14:00 146 I/O 01/25/17 01/25/17 01/25/17 01/26/17 01/26/17 01/26/17 07:00 15:00 23:00 07:00 15:00 23:00 Intake Total 549 ml 115 ml 210 ml Output Total 250 ml 1600 ml 50 ml Balance 299 ml -1485 ml 160 ml IV Total 549 ml 115 ml 175 ml Tube Feeding 35 ml Output Urine Total 250 ml 50 ml 50 ml Stool Total 50 ml Hemodialysis 1500 ml Result Diagram: 01/26/17 0409 01/26/17 0409 Objective Remarks GENERAL: This is an obese, elderly man who is intubated, sedated, assisting the ventilator. HEENT: Head is normocephalic. Pupils are reactive. Nasal packing noted NECK: Supple with neck hematoma on right. Trachea is midline. CHEST: Decreased breath sounds with crackles at both lung bases.Occ wheeze heard. Decreased breath sounds on left HEART: The heart sounds are irregular S1-S2. No murmur. ABDOMEN: Soft. Obese without masses. No organomegaly. EXTREMITIES: 1 + edema. Decreased peripheral pulses. Reflexes are not elicited. The patient is sedated. SKIN: Dry and cool. Assessment and Plan Assessment and Plan IMPRESSION 1. Hypoxic respiratory failure. 2. Left lower lobe atelectasis and possible pneumonia with aspiration. 3. Left pleural effusion resolved. 4. Cardiomyopathy and congestive heart failure. 5. Obstructive sleep apnea. 6. Diabetes mellitus. 7. Atrial fibrillation. 8. Nasopharyngeal bleed Plan : 1. Wean FIO2 to keep sat >90. 2. PEEP to 10 CM, FIO2 to 45 % 3. Antibiotics per ID. 4. CBC CXR ,BMP in am. 5. Nebs qid , duoneb. 6. Trach suction and Lavage 7. Tube feeds at 50 CC 8. Solumedrol 20 mg IV q12h 9. Hold anticoagulant 10. Plan Tracheostomy soon. Julius Burch MD January 26, 2017 12:27
[2017-01-26] MEDS: EPOETIN ALFA 4,000 UNITS/ML VIAL IV PRN (15:25)
[2017-01-26] MEDS: ALBUMIN HUMAN 25% 25 GM/100 ML BAGP IV PRN (15:26)
[2017-01-26] MEDS: MANNITOL 12.5 GM/50 ML VIAL IV PRN (15:26)
--- NOTE | 2017-01-26 18:47 | RADRPT ---
EXAM DATE/TIME: 01/26/2017 18:15 [facility] COMPARISON: CHEST SINGLE AP, January 25, 2017, 11:04. INDICATIONS : Respiratory failure. Infiltrate. MEDICAL HISTORY : None. SURGICAL HISTORY : None. ENCOUNTER: Subsequent ACUITY: 2 weeks PAIN SCORE: Non-responsive. LOCATION: Bilateral chest FINDINGS: A single portable frontal view of the chest and it's the left anterolateral hemithorax. Heart is enla rged. Complete opacification left hemithorax is new from the prior study. An intra-alveolar infiltrat e is seen within the right lung base. Questionable right effusion. Endotracheal tube tip 4 cm cephala d to the saturnino. Left subclavian central line. Nasogastric tube. CONCLUSION: 1. Interval complete opacification of the left hemithorax. There is some volume loss involving the le ft hemithorax as well suggesting a component of pulmonary collapse. 2. Atelectasis versus developing infiltrate right lung base. John Ramirez Jr., MD on January 26, 2017 at 18:44 Board Certified Radiologist. This report was verified electronically.
[2017-01-26] MEDS ORDERED: SODIUM CHLORIDE IV SCH (19:30)
[2017-01-26] MEDS ORDERED: [UNRECOGNIZED DRUG - OTHER] IV SCH (19:30)
[2017-01-26] MEDS ORDERED: ARGATROBAN IV SCH (19:30)
[2017-01-27] VITALS (26 sets, daily range): BP systolic 89–165; BP diastolic 56–81; PULSE 94–150; RESP 18–21; TEMP 97.5–99.2; O2SAT 88–99
[2017-01-27] MEDS: RESP: IPRATROPIUM 0.5 MG/2.5 ML NEB NEB SCH ×4 (03:07→19:38)
[2017-01-27] MEDS: RESP: ACETYLCYSTEINE 10% 30 ML NEB NEB SCH ×4 (03:08→19:38)
[2017-01-27] MEDS: CHLORHEXIDINE GLUCONATE 2 % 1 PACK (2 CLOTHS) TOP SCH (04:00)
[2017-01-27 04:07] LABS: BASOPHIL % 0.4 % (0.0-2.0); EOSINOPHIL % 0.1 % (0.0-4.0); HEMATOCRIT 23.1 % (39.0-51.0); LYMPH % 2.4 % (9.0-44.0); LYMPHOCYTE # 0.2 TH/MM3 (1.0-4.8); MEAN CELL VOLUME 87.3 FL (80.0-100.0); MEAN CORPUSCULAR HGB CONC 34.4 % (32.0-36.0); MONO % 3.2 % (0.0-8.0); NEUT % 93.9 % (16.0-70.0); PLATELET COUNT 54 TH/MM3 (150-450); RED BLOOD COUNT 2.64 MIL/MM3 (4.50-5.90); RED CELL DISTRIBUTION WIDTH 16.5 % (11.6-17.2); WHITE BLOOD COUNT 9.6 TH/MM3 (4.0-11.0)
[2017-01-27 04:19] LABS: HEMO FLAGS AUTO DIFF
[2017-01-27 04:56] LABS: BICARBONATE 24.1 MEQ/L (21.0-32.0); POTASSIUM 4.4 MEQ/L (3.5-5.1)
[2017-01-27 05:15] LABS: BANDS 5 % (0-6); METAMYELOCYTES 1 % (0-1); NEUTROPHIL # MANUAL DIFF 9.6 TH/MM3 (1.8-7.7); POLYS (SEG NEUTROPHILS) 94 % (16-70); SCAN/DIFF FINAL DIFF MANUAL; WBC DIFF SAMPLE 100
[2017-01-27 05:16] LABS: PLATELET ESTIMATE SMEAR LOW (NORMAL); PLATELET MORPHOLOGY NORMAL (NORMAL)
[2017-01-27] MEDS: SODIUM CHLORIDE 0.9% FLUSH 10 ML FLUSH IV FLUSH PRN (05:29)
[2017-01-27] MEDS: METOCLOPRAMIDE HCL 10 MG/2 ML VIAL IV PUSH SCH ×3 (05:29→20:09)
[2017-01-27] MEDS: INSULIN ASPART SUPPLEMENTAL SCALE SQ SCH ×5 (05:30→23:37)
[2017-01-27] MEDS: ARTIFICIAL TEARS OPTH SOLN 15 ML BTL EACH EYE SCH ×3 (05:30→20:10)
[2017-01-27] MEDS: fentaNYL DRIP 250 ML IV SCH ×2 (07:03→18:13)
--- NOTE | 2017-01-27 07:18 | HHI.CCPN ---
Subjective Remarks/Hospital Course This is a 71-year-old gentleman that presented to [facility] secondary to dyspnea and atrial fibrillation with RVR. The patient has a medical history significant for obesity and hypertension. During his hospitalization at [facility], the patient underwent an echocardiogram which showed severe systolic dysfunction with an ejection fraction of 1015 % the patient then underwent a cardiac catheterization showing significance with left circumflex 90%. The patient underwent multiple attempts of unsuccessful synchronized cardioversion. The patient also underwent medical management with beta blockers, and calcium channel blockers that were also unsuccessful. The patient was transferred to [facility] for cardiac ablation with Dr. Jimenez. The patient was scheduled for cardiac ablation, the procedure was canceled. The patient required emergent intubation and required ventilator management a VLADIMIR was performed showing a clot in the left atrial appendage. The patient was placed on IV Cardizem, and an amiodarone infusion. Critical Care medicine was consulted for management. 01/06: Tmax 97.4. The patient remained on elevated vent settings with FiO2 of 1.0 overnight, PEEP requirements were increased to 8, to maintain a PaO2 of greater than [address] scan of the chest was obtained which noted bilateral effusions small, basilar consolidations right worse than the left, and a loculated area representing a possible pneumonia process, empyema, as well as aspiration or just loculated fluid as well as a small pericardial effusion. The patient continues on Cardizem and amiodarone infusions with a heart rate overnight 80s -115. The patient's vasopressor requirements of phenylephrine diminished to 20 mcgs. 01/07: Tmax 99.2. Yesterday the central line was placed for vasoactive medications and CVP monitoring, small hematoma noted near the right IJ area soft no compression of major vessels, with resolution of bleeding in that area. Phenylephrine was discontinued yesterday. The patient heart rate remains today [id number]. Cardizem infusion has been discontinued in the setting of EF of 10-15%. Esmolol infusion to be initiated this a.m.. Coumadin was initiated last night now placed on hold due to patient bleeding from nasopharynx and oropharynx. INR currently 1.2. Plan for CT thorax tomorrow, with possible IR intervention versus CVT consultation for possible empyema the patient will remain on heparin infusion, and transition onto Coumadin after any potential procedures to be initiated. Chest x-ray slightly improved FiO2 decreasing now 70%. Sedation vacation yesterday revealed GCS 11 T, patient alert responsive following commands. With initiation of antibiotics, leukocytosis resolved. ID consulted Dr. Gage. Blood cultures are pending. 01/08: Patient's heart rate 110-[address] scan of the chest imaging revealed fluid. Plan for thoracentesis and and studies of pleural fluid , this afternoon. The patient remains on amiodarone and heparin infusions, per cardiology. Heparin held, for thoracentesis this afternoon, and then will be resumed. The patient was maintained on CPAP trial for approximately one hour yesterday. During sedation vacation patient was alert following commands recognizing family. Plan to resume CPAP trials this afternoon post thoracentesis. 01/09: The patient underwent CT-guided thoracentesis yesterday , on the right side noted 400 cc of fluid was removed , with specimens ordered to be sent for evaluation .This morning chest x-ray performed showing almost complete opacification of the left lung. FiO2 requirements increase patient on FiO2 of 80%, O2 sat 94%. Left chest ultrasound obtained revealing no fluid. Consent obtained BAL performed, revealing emanating from the nearest previously ( patient was noted to have epistaxis with initiation of heparin on 01/06). Blood clots noted in left lung upon visualization with bronchoscopy, saline lavage applied, minimal blood clots removed. The patient was initiated on Mucomyst 10% , and pulmonology was consulted. Dr. Tasia Lama following. The patient shows no signs or evidence of bleeding actively, plan to consult ENT if signs of active bleeding become evident. Hemoglobin remains stable.The patient converted into sinus rhythm is today afternoon. Cardiology management of medications, IV amiodarone discontinued this afternoon. 01/10: Tmax 99.0. Chest x-ray shows slight improvement of left lung today. Plan for repeat bronchoscopy per Dr. Burch this a.m, and the patient continues on Mucomyst. The patient's cardiac rhythm reverted to A. fib last evening, amiodarone IV infusion reinstituted per Dr. Jimenez. 01/11: TMax 100.0. Much improved chest x-ray this morning. The patient continues in A. fib with a rate of 120, he continues on amiodarone, heparin infusion per cardiology. No evidence of active bleeding. 5/12 Patient Remains sedated with Diprivan, intubated. T:99.9. On Neosyn 15 mics , heparin and Amio drips. In Afib with RRV. Patient s/p repeat bronch with BAL yesterday by Dr. Burch and ETT replacement by Dr. Sanchez. On PC/AC with PEEP:14 , FIO2 100%. 01/13: TMax 100.2. Last night the nurse reported that the patient had a small amount of epistaxis, and blood in the oropharynx noted. The area continued to bleed during the night. ENT has been consulted. Heparin has been placed on hold , ASA has been discontinued in the setting of acute renal failure. The patient continues on amiodarone infusion , heart rate 120's. Neosynephrine has been discontinued, and Levophed instituted. Creatinine noted to be 4.5. As per report , states patient does not want dialysis. The patient continues on elevated PEEP of 14. 5/14: Heparin was discontinued yesterday in the setting of continued bleeding in the nasal/ oropharyngeal region. ENT was consulted and nasal packing was applied. During the night the patient still had small noted amount of bleeding from the oropharyngeal area plan today for oropharyngeal packing. Hgb 9, will transfuse .The patient was placed on norepinephrine for currently at 1-2 mcgs per minute. PEEP has been decreased to 12, with adequate oxygenation a PaO2 of 71. 5/15: Tmax 99.0. The patient continues to be anemic and thrombocytopenic, contributory factors being uremia. The patient's /family decided to pursue hemodialysis at this point. The patient received 1 unit of packed red blood cells yesterday. The patient was initiated on dialysis yesterday afternoon, with approximately 3 L removed. Nasal gauze packing removed and placement of nasal balloons by ENT yesterday. Oral gauze packing to be removed today. The patient received 2 separate doses of digoxin, A. fib heart rate ranging 80- < 120. The patient continues to have high ventilatory requirements, FiO2 was increased throughout the night to currently 80%, to maintain O2 sat greater than 92%. 01/16: FiO2 at 85%. Large clots removed from oropharynx overnight. Transfused 2 units PRBCs yesterday. No bowel movement. Tolerating tube feeds at 40 cc now with Nepro 01/17: Maximum 100.6. CURRENT TEMPERATURE 98.1. Central line pulled out yesterday. Flolan initiated yesterday and FiO2 down to 65%. Tolerating tube feeds. No bowel movement. Arousable weakly follow commands yesterday 01/18: Tmax 99.8. Currently afebrile. Initially, hemoptysis with desaturation requiring bronchoscopy. See bronchoscopy note. Roto-Rest bed ordered. FiO2 from 100-70% currently. On Nimbex drip. No BM. Tolerating tube feeds. 01/19: Afebrile. FiO2 down to 40%. We will attempt a wean Flolan today. On Nimbex drip. Positive BM yesterday. Tolerating tube feeds. 01/20: FiO2 back to 100%. Flolan "fell off "overnight. Ventilator adjusted back to 100%. Flolan reinstituted. Chest x-ray and ABG pending. Tolerating tube feeds. Positive BM. Afebrile. Subjective: 01/21: Intolerant of tube feeding. KUB pending. Afebrile. Bleeding from bilateral nares and Alanis overnight. Argatroban has been held. Positive BM. 01/22 Patient is sedated with Fentanyl , versed in addition he is on Nimbex. Receiving HD. TF on hold for high residuals. 01/23 Patient is on Roto prone bed sedated and intubated. s/p HD yesterday with removal 3L. On Nimbex, afebrile. 01/24 Patient remains sedated with Versed, Fentanyl and remains on Nimbex. On PC/ AC with PEEP: 10, FIO2 down 40%. For HD today. Afebrile. 01/25 Patient remains sedated and intubated . On PC/AC with PEEP: 10 and FIO2 50% . s/p HD yesterday with removal 4.5L. Afebrile. 01/26 Patient is sedated with Fentanyl off versed and Nimbex. s/p bronch yesterday by Dr. Burch. On PRVC/AC with PEEP: 10 and FIO2 down to 50% s/p HD yesterday with removal 1.5. For another HD session today. 01/27 Patient is sedated with Fentanyl and intubated, s/p HD yesterday with removal 4L. Afebrile. On PRVC/AC mode with PEEP; 10 and FIO2 45% Objective Vital Signs Date Time Temp Pulse Resp B/P Pulse Ox O2 Delivery O2 Flow Rate FiO2 01/27/17 06:00 129 01/27/17 04:27 97 45 01/27/17 04:00 98.6 18 148/78 156/75 01/25/17 19:36 Ventilator Intake and Output 01/26/17 01/26/17 01/27/17 08:00 16:00 00:00 Intake Total 210 ml 407 ml 542 ml Output Total 50 ml 1085 ml 3100 ml Balance 160 ml -678 ml -2558 ml Result Diagram: 01/27/17 0349 01/27/17 0349 Other Results Laboratory Tests Test 01/27/17 03:49 White Blood Count 9.6 TH/MM3 Red Blood Count 2.64 MIL/MM3 Hemoglobin 7.9 GM/DL Hematocrit 23.1 % Mean Corpuscular Volume 87.3 FL Mean Corpuscular Hemoglobin 30.0 PG Mean Corpuscular Hemoglobin 34.4 % Concent Red Cell Distribution Width 16.5 % Platelet Count 54 TH/MM3 Mean Platelet Volume 10.6 FL Neutrophils (%) (Auto) 93.9 % Lymphocytes (%) (Auto) 2.4 % Monocytes (%) (Auto) 3.2 % Eosinophils (%) (Auto) 0.1 % Basophils (%) (Auto) 0.4 % Neutrophils # (Auto) 9.0 TH/MM3 Lymphocytes # (Auto) 0.2 TH/MM3 Monocytes # (Auto) 0.3 TH/MM3 Eosinophils # (Auto) 0.0 TH/MM3 Basophils # (Auto) 0.0 TH/MM3 CBC Comment AUTO DIFF Differential Total Cells 100 Counted Neutrophils % (Manual) 94 % Band Neutrophils % 5 % Neutrophils # (Manual) 9.6 TH/MM3 Metamyelocytes 1 % Differential Comment FINAL DIFF MANUAL Platelet Estimate LOW Platelet Morphology Comment NORMAL Sodium Level 140 MEQ/L Potassium Level 4.4 MEQ/L Chloride Level 103 MEQ/L Carbon Dioxide Level 24.1 MEQ/L Anion Gap 13 MEQ/L Blood Urea Nitrogen 95 MG/DL Creatinine 3.97 MG/DL Estimat Glomerular Filtration 15 ML/MIN Rate Random Glucose 127 MG/DL Calcium Level 7.7 MG/DL Imaging Last Impressions Chest X-Ray 01/26/17 0000 Signed Impressions: Service Date/Time: Thursday, January 26, 2017 18:15 - CONCLUSION: 1. Interval complete opacification of the left hemithorax. There is some volume loss involving the left hemithorax as well suggesting a component of pulmonary collapse. 2. Atelectasis versus developing infiltrate right lung base. John Ramirez Jr., MD Abdomen X-Ray 01/21/17 0000 Signed Impressions: Service Date/Time: Saturday, January 21, 2017 08:41 - CONCLUSION: Nondiagnostic study. Gurvinder Collier MD Renal Ultrasound 01/09/17 0000 Signed Impressions: Service Date/Time: Monday, January 09, 2017 13:56 - CONCLUSION: 1. Right kidney is sonographically normal. 2. Benign-appearing 2.4 x 1.5 cm cortical cyst in the midpole of the left kidney. 3. Subcentimeter echogenic, non-shadowing foci in the midpole of the left kidney would be unusual for stones and may represent ectopic hilar fat. No hydronephrosis. 4. Urinary bladder is decompressed with a Alanis catheter. Douglas Ward MD Chest Ultrasound 01/09/17 0000 Signed Impressions: Service Date/Time: Monday, January 09, 2017 08:18 - CONCLUSION: No left-sided pleural effusion. The abnormality in the left chest on chest radiograph is likely related to mucous plugging. When patient had a CT scan yesterday the left lung was well aerated. Edgardo Mayorga MD Chest CT 01/08/17 0600 Signed Impressions: Service Date/Time: Sunday, January 08, 2017 08:46 - CONCLUSION: Massive cardiomegaly with panchamber enlargement extensive coronary calcifications. Stable trace pericardial effusion. Increasing bibasilar consolidative changes with minimal bilateral pleural effusions.. Rhys Fritz MD FACR Thoracentesis 01/08/17 0000 Signed Impressions: Service Date/Time: Sunday, January 08, 2017 16:08 - CONCLUSION: Uncomplicated CT-guided thoracentesis on the right. The left sided thoracentesis was not performed as there was no significant left pleural fluid. The abnormality on most recent chest x-ray was secondary to mucous plugging and left sided atelectasis. Edgardo Mayorga MD Objective Remarks GENERAL: 71-year-old male, critically ill-appearing obese male resting in rotarest bed SKIN: Warm and dry. No rash HEAD: Atraumatic. Normocephalic. EYES: Pupils equal and round, 3mm and reactive. No scleral icterus. No injection or drainage. ENT: Bilateral Rhino Rocket newly placed . Positive blood from mouth with suctioning NECK: Trachea midline. Unable to assess JVD secondary to body habitus. Large right-sided neck hematoma without midline shift. Evolving ecchymoses. Left subclavian central line is clean dry and intact CARDIOVASCULAR: Tachycardia, IR. S1, S2 no S4 without murmur RESPIRATORY: Diminished breath sounds throughout. Few crackles in bases bilaterally. Breath sounds equal bilaterally. GASTROINTESTINAL: Abdomen soft, obese non-tender, nondistended. I Magana bowel sounds MUSCULOSKELETAL: Extremities with 1+ peripheral edema. No obvious deformities. Posterior tibialis is palpable bilaterally. Right femoral Vas-Cath is clean dry and intact NEUROLOGICAL: Intubated and sedated. Follows commands moving extremities 4, when off sedation documented last Sunday. Date of Insertion: January 05, 2017 Date of Insertion: January 17, 2017 Line: Central Venous Catheter Side: Left Location: Subclavian, Jugular A/P Assessment and Plan Neuro/Psych: Epistaxis Continue with Fentanyl infusion for sedation. Daily sedation vacation when appropriate, 01/12 New onset epistaxis, heparin discontinued Epistaxis-ENT consulted-nasal balloons in situ maintain balloons until 01/20 per ENT recommendation. Removed 01/20 but resumed bleeding so replaced yesterday - 01/21 ENT following - Dr. Byrd. Respiratory: Acute hypoxic respiratory failure Left lung consolidation 2/2 previous event of epistaxis, clotted blood left lung -resolved SONU Probable aspiration Possible multilobar [id number] Bilateral pleural effusions Continue with vent support keep sat >92% On PRVC/AC RR 18, TV 600, IT:1.3, PEEP: 10, FIO2 45% Check CXR and ABG today Currently on Xopenex and Atrovent aerosols every 6 hours ICU vent bundle. Mucomyst nebs Q6 Pulmonology following- Dr. Burch Solu-Medrol 20 mg IV BID, off Flolan 01/08-right CT-guided thoracentesis-400 cc removed, sent for cytology and cultures s/p bronch 01.11 by- Dr. Burch for blood clots left lung Status post bronch 01/17 by rehabilitation program coordinator - bloody mucous plug at saturnino/mainstem section cleared. No obvious source of bleeding. s/p bronch 01/[address] Burch. -minimal secretions. CV: A. fib with RVR Left atrial appendage thrombus Cardiomyopathy Acute Systolic CHF Hypertension Dyslipidemia On Amiodarone 200 mg twice a day, Coreg 6.25mg BID. Monitor HR and BP keep MAP> 65mmHg 01/13- Heparin, ASA discontinued due to epistaxis 01/05 VLADIMIR( Director Of Leadership Development)-left atrial thrombus EF 15-20%. Systolic function reduced. Diffuse hyperkinesis. 12/26 [facility] severe systolic dysfunction EF 1015%, mitral valve mild to moderate regurg, LAE, tricuspid Valve-mild to moderate regurg, small pericardial effusion, 12/19 cardiac cath left circumflex 90% occlusion Management per Cardiology -Dr. Jimenez 01/15 started on Coreg 6.25 mill grams by mouth twice a day. We'll restart Coreg at 3.125 twice a day as off vasopressors At home on Coreg 25 mg twice a day, aspirin 81 mg daily, hydralazine 25 mg twice a day and HCTZ25 mg by mouth daily Renal: Acute on chronic kidney disease stage IV Nephrology following-Dr. Hahn Monitor renal function, I/O's, avoid nephrotoxins. Vascath placement Hemodialysis initiated 01/14. s/p HD 01/26 with removal 4L. Cr: 3.97 today from 4.24 FEN/GI: Morbid obesity On Tube feeds- Nepro advance to goal rate @50 cc/hr) KUB abdomen 01/21: Non diagnostic study Prevacid for GI prophylaxis Bowel Colace/Senokot twice a day. On Reglan 5 every 8 and erythromycin 200 every 8 for bowel motility/prokinetic PhosLo 667 3 times a day Heme: Leukocytosis Normocytic anemia Thrombocytopenia Monitor CBC. Transfused 3 units PRBCs on admission Weakly positive HIT panel-CLIFFORD is negative. Due to gross hematuria and epistaxis all anticoagulants on hold currently. Hematology is following ID: Likely aspiration pneumonia 01/06 urine, sputum, blood cultures-NGTD 01/06-Legionella urine antigen negative 01/09 - bronchoscopy - yeast/ID to follow 01/12 - blood cultures 2 - no growth 01/20 - blood cultures 2 - staph Epi 09/06 bottles- likely contaminant Off ID per ID ( s/p Cefepime/Flagyl) -Dr. Gage following, -Monitor for signs of infections ( Fever, WBC) -Recent cultures- NGTD Endocrine: Close monitoring per ICU protocol-medium dose regimen -- SSI Accu-Cheks every 6 hours for glycemic control Prophylaxis: GI Prophylaxis Prevacid 30 mg at night DVT Prophylaxis -- SCDs, Lines: Peripheral IV's. 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 Time to perform other separately billable procedures was not included in the critical care time. Ari Betancourt MD January 27, 2017 07:18
--- NOTE | 2017-01-27 07:57 | RADRPT ---
EXAM DATE/TIME: 01/27/2017 07:20 [facility] COMPARISON: CHEST SINGLE AP, January 25, 2017, 11:04. CHEST SINGLE AP, January 26, 2017, 18:15. INDICATIONS : Short of breath. MEDICAL HISTORY : Hypertension. SURGICAL HISTORY : Coronary artery stent. ENCOUNTER: Subsequent ACUITY: 1 month PAIN SCORE: Non-responsive. LOCATION: Bilateral chest FINDINGS: Portable AP view of the chest demonstrates enlargement of the cardiac silhouette. ETT, nasogastric tu be, and left subclavian central line remain present. There is improved aeration of the left lung with aerated left upper and midlung zone. There is persistent retrocardiac opacity obscuring the left hem idiaphragm. No pneumothorax is visualized. CONCLUSION: 1. Improved aeration of the left lung with residual opacity at the left base which could represent at electasis, consolidation, and/or effusion. 2. Stable enlargement of the cardiac silhouette. Daniel Reyes MD on January 27, 2017 at 7:54 Board Certified Radiologist. This report was verified electronically.
[2017-01-27] MEDS: CHLORHEXIDINE 0.12% (ORAL KIT) 15 ML CUP MT SCH ×2 (08:26→20:00)
[2017-01-27] MEDS: methylPREDNISolone SOD SUCC 40 MG/1 ML VIAL IV PUSH SCH ×2 (08:26→20:09)
[2017-01-27] MEDS: SODIUM CHLORIDE 0.9% FLUSH 10 ML FLUSH IV FLUSH SCH ×2 (08:26→20:09)
[2017-01-27] MEDS: AMIODARONE 200 MG TAB PO SCH (08:27)
[2017-01-27] MEDS: DOCUSATE SODIUM 100 MG/10 ML UDC PO SCH ×2 (08:27→20:08)
[2017-01-27] MEDS: SODIUM CHLORIDE 0.9% FLUSH 10 ML FLUSH IVF SCH (08:27)
[2017-01-27] MEDS: CARVEDILOL 6.25 MG TAB PO SCH ×2 (08:27→20:08)
[2017-01-27] MEDS: SENNOSIDES SYRUP 8.8 MG/5 ML CUP PO SCH ×2 (08:27→20:08)
[2017-01-27] MEDS: CALCIUM ACETATE 667 MG CAP PO SCH ×3 (08:27→18:00)
[2017-01-27] MEDS: LANSOPRAZOLE SOLUTAB 30 MG TAB NG SCH (08:27)
[2017-01-27] MEDS: ALBUMIN HUMAN 25% 25 GM/100 ML BAGP IV PRN (09:22)
[2017-01-27] MEDS: GENTAMICIN SULFATE (DIALYSIS USE ONLY) 20 MG/2 ML VIAL IV PRN (09:23)
[2017-01-27] MEDS: EPOETIN ALFA 4,000 UNITS/ML VIAL IV PRN (09:23)
--- NOTE | 2017-01-27 10:02 | PD.ONC.PN ---
Subjective Subjective Remarks Afebrile overnight. Receiving dialysis at bedside. Argatroban turned on during dialysis as previously his lines were clotting off during dialysis. Rhino rockets remain in place, but may be removed today. Remains intubated, critically ill. Objective Data Date Time Temp Pulse Resp B/P Pulse Ox O2 Delivery O2 Flow Rate FiO2 01/27/17 09:00 95 18 116/64 99 154/78 01/27/17 08:00 45 01/27/17 08:00 121 109/62 145/72 01/27/17 08:00 97.5 121 18 109/62 95 145/72 01/27/17 08:00 121 01/27/17 07:55 128 106/57 155/79 01/27/17 07:52 96 45 01/27/17 06:00 129 01/27/17 04:27 97 45 01/27/17 04:00 98.6 130 18 148/78 99 156/75 01/27/17 04:00 130 01/27/17 02:00 124 01/27/17 01:08 98 50 01/27/17 00:00 128 01/27/17 00:00 98.8 128 18 102/69 97 128/66 01/26/17 23:00 50 01/26/17 22:06 93 50 01/26/17 22:00 134 01/26/17 20:00 99.1 143 18 119/82 94 148/76 01/26/17 20:00 143 01/26/17 19:25 92 50 01/26/17 19:00 129 119/82 125/64 01/26/17 18:00 140 01/26/17 16:00 137 01/26/17 16:00 97.4 137 19 103/56 94 118/65 01/26/17 15:18 94 50 01/26/17 15:00 50 01/26/17 14:00 137 01/26/17 12:00 97.9 138 18 137/94 97 148/94 01/26/17 12:00 143 01/26/17 11:43 96 50 01/26/17 10:00 150 01/27/17 01/27/17 01/27/17 07:00 15:00 23:00 Intake Total 317 ml Output Total 50 ml Balance 267 ml Result Diagram: 01/27/17 0349 01/27/17 0349 Laboratory Results Laboratory Tests Test 01/27/17 03:49 White Blood Count 9.6 TH/MM3 Red Blood Count 2.64 MIL/MM3 Hemoglobin 7.9 GM/DL Hematocrit 23.1 % Mean Corpuscular Volume 87.3 FL Mean Corpuscular Hemoglobin 30.0 PG Mean Corpuscular Hemoglobin 34.4 % Concent Red Cell Distribution Width 16.5 % Platelet Count 54 TH/MM3 Mean Platelet Volume 10.6 FL Neutrophils (%) (Auto) 93.9 % Lymphocytes (%) (Auto) 2.4 % Monocytes (%) (Auto) 3.2 % Eosinophils (%) (Auto) 0.1 % Basophils (%) (Auto) 0.4 % Neutrophils # (Auto) 9.0 TH/MM3 Lymphocytes # (Auto) 0.2 TH/MM3 Monocytes # (Auto) 0.3 TH/MM3 Eosinophils # (Auto) 0.0 TH/MM3 Basophils # (Auto) 0.0 TH/MM3 CBC Comment AUTO DIFF Differential Total Cells 100 Counted Neutrophils % (Manual) 94 % Band Neutrophils % 5 % Neutrophils # (Manual) 9.6 TH/MM3 Metamyelocytes 1 % Differential Comment FINAL DIFF MANUAL Platelet Estimate LOW Platelet Morphology Comment NORMAL Sodium Level 140 MEQ/L Potassium Level 4.4 MEQ/L Chloride Level 103 MEQ/L Carbon Dioxide Level 24.1 MEQ/L Anion Gap 13 MEQ/L Blood Urea Nitrogen 95 MG/DL Creatinine 3.97 MG/DL Estimat Glomerular Filtration 15 ML/MIN Rate Random Glucose 127 MG/DL Calcium Level 7.7 MG/DL Imaging Studies Last 24 hours Impressions Chest X-Ray 01/27/17 0000 Signed Impressions: Service Date/Time: Friday, January 27, 2017 07:20 - CONCLUSION: 1. Improved aeration of the left lung with residual opacity at the left base which could represent atelectasis, consolidation, and/or effusion. 2. Stable enlargement of the cardiac silhouette. Daniel Reyes MD Administered Medications Medications (Trade) Dose Ordered Sig/Claire Route PRN Reason Start Time Stop Time Status Last Admin Dose Admin Propofol (Diprivan 1000 Mg/100ml Inj) 100 ml @ 0 mls/hr TITRATE IV 01/05/17 21:45 01/21/17 19:16 Docusate Sodium (Colace Liq) 100 mg Q12HR PO 01/06/17 21:00 01/27/17 08:27 Sodium Chloride (NS Flush) 2 ml UNSCH PRN IV FLUSH FLUSH AFTER USING IV ACCESS 01/06/17 13:15 01/27/17 05:29 Sodium Chloride (NS Flush) 2 ml BID IV FLUSH 01/06/17 21:00 01/27/17 08:26 Chlorhexidine Gluconate (Chlorhexidine 2% Cloth) 3 pack Taper DAILY@04 TOP 01/07/17 04:00 01/03/18 03:59 01/27/17 04:00 Dextrose (D50w (Vial) Inj) 25 ml UNSCH PRN IV PUSH HYPOGLYCEMIA-SEE COMMENTS 01/09/17 07:15 01/21/17 19:15 Insulin Aspart (NovoLOG SUPPLEMENTAL SCALE) 1 Q6HR SQ 01/10/17 06:00 01/20/17 00:07 Bisacodyl (Dulcolax Supp) 10 mg DAILY PRN RECTAL CONSTIPATION 01/10/17 09:15 Hold 01/10/17 09:56 Sennosides (Senna Liq) 8.8 mg BID PO 01/16/17 09:00 01/27/17 08:27 Glycerin (Glycerin Adult Supp) 2 gm BID PRN RECTAL CONSTIPATION 01/17/17 06:45 01/17/17 14:30 Amiodarone HCl (Cordarone) 200 mg Q12HR PO 01/17/17 09:00 01/27/17 08:27 Sodium Chloride DAILY IVF 01/17/17 12:30 01/27/17 08:27 Cisatracurium Besylate/Sodium Chloride (Nimbex Inj/NS 250 ml Inj) 250 ml @ 0 mls/hr TITRATE IV 01/17/17 14:30 01/25/17 05:48 Artificial Tears (Tears Naturale Opth Soln) 1 drop Q8HR EACH EYE 01/17/17 22:00 01/27/17 05:30 Chlorhexidine Gluconate 15 ml 15 ml BID@08,20 MT 01/17/17 20:00 01/27/17 08:26 Midazolam HCl 100 ml @ 0 mls/hr TITRATE IV 01/17/17 16:45 01/25/17 00:18 Fentanyl Citrate (fentaNYL DRIP) 250 ml @ 0 mls/hr TITRATE IV 01/17/17 16:45 01/27/17 07:03 Metoclopramide HCl (Reglan Inj) 5 mg Q8HR IV PUSH 01/18/17 06:45 01/27/17 05:29 Calcium Acetate (Phoslo) 667 mg TID PO 01/19/17 09:00 01/27/17 08:27 Lansoprazole 30 mg 30 mg DAILY NG 01/19/17 09:00 01/27/17 08:27 Sodium Chloride (NS 1000 ml Inj) 1,000 ml @ 0 mls/hr Q0M PRN IV WITH DIALYSIS 01/19/17 08:06 01/27/17 09:24 Mannitol (Mannitol Inj) 12.5 gm UNSCH PRN IV WITH DIALYSIS 01/19/17 08:15 01/26/17 15:26 Albumin Human (Albumin 25% Inj) 25 gm UNSCH PRN IV WITH DIALYSIS 01/19/17 08:15 01/27/17 09:22 Sodium Chloride (NS Flush) 5 ml UNSCH PRN IV FLUSH WITH DIALYSIS 01/19/17 08:15 01/27/17 09:22 Gentamicin Sulfate (Gentamicin (Dialysis) Inj) 20 mg UNSCH PRN IV WITH DIALYSIS 01/19/17 08:15 01/27/17 09:23 Epoetin Rizwan 4000 units 4,000 units UNSCH PRN IV WITH DIALYSIS 01/19/17 08:15 01/27/17 09:23 Norepinephrine Bitartrate/Sodium Chloride (Levophed Inj/NS 250 ml Inj) 250 ml @ 0 mls/hr TITRATE IV 01/20/17 08:00 01/20/17 10:21 Methylprednisolone Sodium Succinate (SoluMEDROL INJ) 20 mg BID IV PUSH 01/24/17 21:00 01/27/17 08:26 Carvedilol (Coreg) 6.25 mg Q12HR PO 01/24/17 21:00 01/27/17 08:27 Labetalol HCl (Trandate Inj) 10 mg Q1HR PRN IV PUSH SBP>160, DBP>90, HR>65 01/24/17 19:15 01/24/17 19:28 Objective Remarks GENERAL: Intubated, sedated male, receiving HD SKIN: Warm and dry. HEAD: Normocephalic. bilateral rhino rockets in place. EYES: No injection or drainage. NECK: Supple, trachea midline. CARDIOVASCULAR: +S1/S2 RESPIRATORY: anterior guardado clear. on mechanical ventilation GASTROINTESTINAL: Abdomen distended. EXTREMITIES: No cyanosis NEUROLOGICAL: intubated, sedated Assessment/Plan Problem List: (1) Thrombosis of left atrium without antecedent myocardial infarction Status: Acute Plan: 01/27/17. anticoagulation on hold at this time due to epistaxis, falling hgb, dark stools --on Argatroban (on hold at present d/t bleeding) until current bag finished then ok to resume UFH (2) Thrombocytopenia Status: Acute Plan: 01/27/17. remains low d/t bleeding, multiple comorbidities. monitor, no transfusion needed at present. --likely d/t bleeding --CLIFFORD negative (3) Epistaxis Status: Acute Plan: 01/27/17. Rhino rockets still in place. --Rhino rockets replaced 01/21 after being removed 01/20 --anticoagulation on hold Assessment 71y/o male admitted in afib w/RVR. 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 --hematoma from central line placement in the right neck --epistaxis requiring nasal plugs Plan 1. monitor CBC 2. hold anticoagulation--ok to use during dialysis 3. monitor acute bleeding Attending Statement The exam, history, and the medical decision-making described in the above note were completed with the assistance of the mid-level provider. I reviewed and agree with the findings presented. I attest that I had a [id number] encounter with the patient on the same day, and personally performed and documented my assessment and findings in the medical record. Priya Fraga January 27, 2017 10:02 Barney Saldivar MD January 27, 2017 23:30
[2017-01-27 10:35] LABS: APTT (PATIENT) 29.4 SEC (24.3-30.1)
--- NOTE | 2017-01-27 11:05 | HHI.NPPN ---
Subjective General Problems: Anemia, Edema, Heart Disease Renal Failure: Acute History of Present Illness 71-year-old the white male the who is transferred from [facility] to [facility] due to atrial fibrillation with fast ventricular response, he was in the heart catheterization lab and became unstable has to intubated the patient has chronic kidney disease, Cardiomyopathy ejection fraction of only 15% and has severe dilated cardiomyopathy with the clot in left atrium he is on heparin drip and currently on ventilator. Additional Remarks Patient remain on the vent. and sedated, intubated or Roto prone bed, On dialysis Objective Data Data 01/26/17 01/27/17 19:00 07:00 Intake Total 407 ml 859 ml Output Total 4085 ml 150 ml Balance -3678 ml 709 ml IV Total 218 ml 557 ml Tube Feeding 129 ml 302 ml Tube Irrigant 60 ml Output Urine Total 35 ml 150 ml Stool Total 50 ml Hemodialysis 4000 ml Vital Signs Date Time Temp Pulse Resp B/P Pulse Ox O2 Delivery O2 Flow Rate FiO2 01/27/17 10:00 133 01/27/17 09:00 95 18 116/64 99 154/78 01/27/17 08:00 45 01/27/17 08:00 121 109/62 145/72 01/27/17 08:00 97.5 121 18 109/62 95 145/72 01/27/17 08:00 121 01/27/17 07:55 128 106/57 155/79 01/27/17 07:52 96 45 01/27/17 06:00 129 01/27/17 04:27 97 45 01/27/17 04:00 98.6 130 18 148/78 99 156/75 01/27/17 04:00 130 01/27/17 02:00 124 01/27/17 01:08 98 50 01/27/17 00:00 128 01/27/17 00:00 98.8 128 18 102/69 97 128/66 01/26/17 23:00 50 01/26/17 22:06 93 50 01/26/17 22:00 134 01/26/17 20:00 99.1 143 18 119/82 94 148/76 01/26/17 20:00 143 01/26/17 19:25 92 50 01/26/17 19:00 129 119/82 125/64 01/26/17 18:00 140 01/26/17 16:00 137 01/26/17 16:00 97.4 137 19 103/56 94 118/65 01/26/17 15:18 94 50 01/26/17 15:00 50 01/26/17 14:00 137 01/26/17 12:00 97.9 138 18 137/94 97 148/94 01/26/17 12:00 143 01/26/17 11:43 96 50 -: 01/27/17 0349 01/27/17 0349 Physical Exam General Appearance: Well Developed Eyes Eye Exam: Pupils Equal Throat Throat Exam: Oral Mucosa [place] & Moist Pulmonary Resp Exam: Rhonchi, Decreased Bases, Diminished Breath Sounds Cardiology CV Exam: Arrhythmia Gastrointestinal/Abdomen GI Exam: Soft, Non-Tender, Distended Extremeties Extremities Exam: Moderate Edema, Pitting Edema, Dependent Edema Neurologic Neuro Exam: Sedated Assessment/Plan Problem List: (1) Acute renal failure Plan: Patient urine out put is lower He has poor ejection fraction and is intubated Severe cardiomyopathy prognosis is guarded. hemodialysis dialysis machine keep shutting off due to clotting, using Argatroban and Citrate based dialysate 3 L off Labs improved FiO2 45% Urine out put remain low. BUN and Creatinine are better post dialysis (2) CKD (chronic kidney disease) stage 4, GFR 15-29 ml/min Plan: Has high creatinine kidney ultrasound reviewed (3) CHF (congestive heart failure) Plan: Severe cardiomyopathy EF 15% (4) Atrial fibrillation with rapid ventricular response Plan: Has a blood clot in LA appendage (5) Thrombocytopenia Plan: platelets 54 k Problem Qualifiers (1) CHF (congestive heart failure): Christa Hahn MD January 27, 2017 11:05
[2017-01-27] MEDS ORDERED: METOPROLOL TARTRATE 5 MG/5 ML VIAL IV PUSH ONE ×3 (11:15→17:00)
[2017-01-27] MEDS: hydrALAZINE HCL 20 MG/ML VIAL IV PUSH PRN (13:08)
[2017-01-27 13:22] LABS: BLOOD GAS CARBOXYHEMOGLOBIN 1.9 % (0-4); BLOOD GAS HCO3 26 mmol/L (22-26); BLOOD GAS METHEMOGLOBIN 1.4 % (0-2); BLOOD GAS O2 HGB SATURATION 86 % (90-100); BLOOD GAS OXYGEN CONTENT 10.4 Vol % (12.0-20.0); BLOOD GAS PCO2 38 mmHg (38-42); BLOOD GAS PO2 61 mmHg (61-120); BLOOD GAS TOTAL HGB 8.5 G/DL (12.0-16.0); TEMP CORR TO 98.6
[2017-01-27 13:23] LABS: CRITICAL VALUE YES
[2017-01-27 13:24] LABS: OXYGEN DEVICE VENTILATOR; VENT SETTINGS PRVC/AC 600/18
[2017-01-27 13:25] LABS: DRAW SITE ART LINE; FIO2 50 %; STAT NO
[2017-01-27] MEDS ORDERED: AMIODARONE HCL 150 MG/3 ML VIAL ONE (14:40)
[2017-01-27] MEDS ORDERED: AMIODARONE INJ 150 MG in DEXTROSE 5% IN WATER 100ML INJ 97 ML IV ONE ×2 (14:45)
[2017-01-27] MEDS ORDERED: AMIODARONE INJ 900 MG in D5W 500 ML (EXCEL BAG) 482 ML IV SCH ×4 (14:45)
[2017-01-27] MEDS: AMIODARONE INJ 450 MG in DEXTROSE 5% IN WATE(EXCEL) INJ 241 ML IV SCH ×4 (15:04→22:54)
[2017-01-27] MEDS ORDERED: SODIUM CHLORID 0.9% 500 ML INJ 500 ML IV ONE (17:00)
[2017-01-28] VITALS (24 sets, daily range): BP systolic 111–166; BP diastolic 56–118; PULSE 97–142; RESP 18–21; TEMP 98.4–99.2; O2SAT 88–100
[2017-01-28] MEDS: RESP: IPRATROPIUM 0.5 MG/2.5 ML NEB NEB SCH ×4 (03:36→19:55)
[2017-01-28] MEDS: RESP: ACETYLCYSTEINE 10% 30 ML NEB NEB SCH ×4 (03:36→19:55)
[2017-01-28] MEDS: CHLORHEXIDINE GLUCONATE 2 % 1 PACK (2 CLOTHS) TOP SCH (04:00)
[2017-01-28 05:31] LABS: AUTOMATED NEUTROPHIL # 9.6 TH/MM3 (1.8-7.7); BASOPHIL % 0.2 % (0.0-2.0); HEMATOCRIT 25.7 % (39.0-51.0); LYMPHOCYTE # 0.2 TH/MM3 (1.0-4.8); MEAN CELL VOLUME 92.1 FL (80.0-100.0); MEAN CORPUSCULAR HEMOGLOBIN 29.9 PG (27.0-34.0); MEAN CORPUSCULAR HGB CONC 32.5 % (32.0-36.0); NEUT % 93.8 % (16.0-70.0); PLATELET COUNT 41 TH/MM3 (150-450); RED BLOOD COUNT 2.79 MIL/MM3 (4.50-5.90); RED CELL DISTRIBUTION WIDTH 17.1 % (11.6-17.2); WHITE BLOOD COUNT 10.2 TH/MM3 (4.0-11.0)
[2017-01-28 05:34] LABS: ALKALINE PHOSPHATASE 67 U/L (45-117); ALT (GPT) 67 U/L (12-78); ANION GAP 15 MEQ/L (5-15); AST (GOT) 35 U/L (15-37); BICARBONATE 26.1 MEQ/L (21.0-32.0); BLOOD UREA NITROGEN 75 MG/DL (7-18); CHLORIDE 99 MEQ/L (98-107); GLOMERULAR FILTRATION RATE 16 ML/MIN (>89); POTASSIUM 4.7 MEQ/L (3.5-5.1); SODIUM (NA) 140 MEQ/L (136-145); TOTAL BILIRUBIN ADULT 0.8 MG/DL (0.2-1.0)
[2017-01-28 05:39] LABS: HEMO FLAGS AUTO DIFF
[2017-01-28] MEDS: METOCLOPRAMIDE HCL 10 MG/2 ML VIAL IV PUSH SCH ×3 (05:43→21:15)
[2017-01-28] MEDS: INSULIN ASPART SUPPLEMENTAL SCALE SQ SCH ×4 (05:44→23:16)
[2017-01-28] MEDS: ARTIFICIAL TEARS OPTH SOLN 15 ML BTL EACH EYE SCH ×3 (05:44→21:15)
[2017-01-28] MEDS: RESP: ALBUTEROL 2.5 MG/IPRATROPIUM 0.5 MG NEB (PRN) NEB ×2 (07:31→19:54)
[2017-01-28 08:46] LABS: BANDS 1 % (0-6); CORRECTED NUCLEATED RBC 1 /100 WBC (0-0); NEUTROPHIL # MANUAL DIFF 9.7 TH/MM3 (1.8-7.7); POLYS (SEG NEUTROPHILS) 94 % (16-70); WBC DIFF SAMPLE 100
--- NOTE | 2017-01-28 08:46 | HHI.CCPN ---
Subjective Remarks/Hospital Course This is a 71-year-old gentleman that presented to [facility] secondary to dyspnea and atrial fibrillation with RVR. The patient has a medical history significant for obesity and hypertension. During his hospitalization at [facility], the patient underwent an echocardiogram which showed severe systolic dysfunction with an ejection fraction of 1015 % the patient then underwent a cardiac catheterization showing significance with left circumflex 90%. The patient underwent multiple attempts of unsuccessful synchronized cardioversion. The patient also underwent medical management with beta blockers, and calcium channel blockers that were also unsuccessful. The patient was transferred to [facility] for cardiac ablation with Dr. Jimenez. The patient was scheduled for cardiac ablation, the procedure was canceled. The patient required emergent intubation and required ventilator management a VLADIMIR was performed showing a clot in the left atrial appendage. The patient was placed on IV Cardizem, and an amiodarone infusion. Critical Care medicine was consulted for management. 01/06: Tmax 97.4. The patient remained on elevated vent settings with FiO2 of 1.0 overnight, PEEP requirements were increased to 8, to maintain a PaO2 of greater than [address] scan of the chest was obtained which noted bilateral effusions small, basilar consolidations right worse than the left, and a loculated area representing a possible pneumonia process, empyema, as well as aspiration or just loculated fluid as well as a small pericardial effusion. The patient continues on Cardizem and amiodarone infusions with a heart rate overnight 80s -115. The patient's vasopressor requirements of phenylephrine diminished to 20 mcgs. 01/07: Tmax 99.2. Yesterday the central line was placed for vasoactive medications and CVP monitoring, small hematoma noted near the right IJ area soft no compression of major vessels, with resolution of bleeding in that area. Phenylephrine was discontinued yesterday. The patient heart rate remains today [id number]. Cardizem infusion has been discontinued in the setting of EF of 10-15%. Esmolol infusion to be initiated this a.m.. Coumadin was initiated last night now placed on hold due to patient bleeding from nasopharynx and oropharynx. INR currently 1.2. Plan for CT thorax tomorrow, with possible IR intervention versus CVT consultation for possible empyema the patient will remain on heparin infusion, and transition onto Coumadin after any potential procedures to be initiated. Chest x-ray slightly improved FiO2 decreasing now 70%. Sedation vacation yesterday revealed GCS 11 T, patient alert responsive following commands. With initiation of antibiotics, leukocytosis resolved. ID consulted Dr. Gage. Blood cultures are pending. 01/08: Patient's heart rate 110-[address] scan of the chest imaging revealed fluid. Plan for thoracentesis and and studies of pleural fluid , this afternoon. The patient remains on amiodarone and heparin infusions, per cardiology. Heparin held, for thoracentesis this afternoon, and then will be resumed. The patient was maintained on CPAP trial for approximately one hour yesterday. During sedation vacation patient was alert following commands recognizing family. Plan to resume CPAP trials this afternoon post thoracentesis. 01/09: The patient underwent CT-guided thoracentesis yesterday , on the right side noted 400 cc of fluid was removed , with specimens ordered to be sent for evaluation .This morning chest x-ray performed showing almost complete opacification of the left lung. FiO2 requirements increase patient on FiO2 of 80%, O2 sat 94%. Left chest ultrasound obtained revealing no fluid. Consent obtained BAL performed, revealing emanating from the nearest previously ( patient was noted to have epistaxis with initiation of heparin on 01/06). Blood clots noted in left lung upon visualization with bronchoscopy, saline lavage applied, minimal blood clots removed. The patient was initiated on Mucomyst 10% , and pulmonology was consulted. Dr. Tasia Lama following. The patient shows no signs or evidence of bleeding actively, plan to consult ENT if signs of active bleeding become evident. Hemoglobin remains stable.The patient converted into sinus rhythm is today afternoon. Cardiology management of medications, IV amiodarone discontinued this afternoon. 01/10: Tmax 99.0. Chest x-ray shows slight improvement of left lung today. Plan for repeat bronchoscopy per Dr. Burch this a.m, and the patient continues on Mucomyst. The patient's cardiac rhythm reverted to A. fib last evening, amiodarone IV infusion reinstituted per Dr. Jimenez. 01/11: TMax 100.0. Much improved chest x-ray this morning. The patient continues in A. fib with a rate of 120, he continues on amiodarone, heparin infusion per cardiology. No evidence of active bleeding. 5/12 Patient Remains sedated with Diprivan, intubated. T:99.9. On Neosyn 15 mics , heparin and Amio drips. In Afib with RRV. Patient s/p repeat bronch with BAL yesterday by Dr. Burch and ETT replacement by Dr. Sanchez. On PC/AC with PEEP:14 , FIO2 100%. 01/13: TMax 100.2. Last night the nurse reported that the patient had a small amount of epistaxis, and blood in the oropharynx noted. The area continued to bleed during the night. ENT has been consulted. Heparin has been placed on hold , ASA has been discontinued in the setting of acute renal failure. The patient continues on amiodarone infusion , heart rate 120's. Neosynephrine has been discontinued, and Levophed instituted. Creatinine noted to be 4.5. As per report , states patient does not want dialysis. The patient continues on elevated PEEP of 14. 5/14: Heparin was discontinued yesterday in the setting of continued bleeding in the nasal/ oropharyngeal region. ENT was consulted and nasal packing was applied. During the night the patient still had small noted amount of bleeding from the oropharyngeal area plan today for oropharyngeal packing. Hgb 9, will transfuse .The patient was placed on norepinephrine for currently at 1-2 mcgs per minute. PEEP has been decreased to 12, with adequate oxygenation a PaO2 of 71. 5/15: Tmax 99.0. The patient continues to be anemic and thrombocytopenic, contributory factors being uremia. The patient's /family decided to pursue hemodialysis at this point. The patient received 1 unit of packed red blood cells yesterday. The patient was initiated on dialysis yesterday afternoon, with approximately 3 L removed. Nasal gauze packing removed and placement of nasal balloons by ENT yesterday. Oral gauze packing to be removed today. The patient received 2 separate doses of digoxin, A. fib heart rate ranging 80- < 120. The patient continues to have high ventilatory requirements, FiO2 was increased throughout the night to currently 80%, to maintain O2 sat greater than 92%. 01/16: FiO2 at 85%. Large clots removed from oropharynx overnight. Transfused 2 units PRBCs yesterday. No bowel movement. Tolerating tube feeds at 40 cc now with Nepro 01/17: Maximum 100.6. CURRENT TEMPERATURE 98.1. Central line pulled out yesterday. Flolan initiated yesterday and FiO2 down to 65%. Tolerating tube feeds. No bowel movement. Arousable weakly follow commands yesterday 01/18: Tmax 99.8. Currently afebrile. Initially, hemoptysis with desaturation requiring bronchoscopy. See bronchoscopy note. Roto-Rest bed ordered. FiO2 from 100-70% currently. On Nimbex drip. No BM. Tolerating tube feeds. 01/19: Afebrile. FiO2 down to 40%. We will attempt a wean Flolan today. On Nimbex drip. Positive BM yesterday. Tolerating tube feeds. 01/20: FiO2 back to 100%. Flolan "fell off "overnight. Ventilator adjusted back to 100%. Flolan reinstituted. Chest x-ray and ABG pending. Tolerating tube feeds. Positive BM. Afebrile. Subjective: 01/21: Intolerant of tube feeding. KUB pending. Afebrile. Bleeding from bilateral nares and Alanis overnight. Argatroban has been held. Positive BM. 01/22 Patient is sedated with Fentanyl , versed in addition he is on Nimbex. Receiving HD. TF on hold for high residuals. 01/23 Patient is on Roto prone bed sedated and intubated. s/p HD yesterday with removal 3L. On Nimbex, afebrile. 01/24 Patient remains sedated with Versed, Fentanyl and remains on Nimbex. On PC/ AC with PEEP: 10, FIO2 down 40%. For HD today. Afebrile. 01/25 Patient remains sedated and intubated . On PC/AC with PEEP: 10 and FIO2 50% . s/p HD yesterday with removal 4.5L. Afebrile. 01/26 Patient is sedated with Fentanyl off versed and Nimbex. s/p bronch yesterday by Dr. Burch. On PRVC/AC with PEEP: 10 and FIO2 down to 50% s/p HD yesterday with removal 1.5. For another HD session today. 01/27 Patient is sedated with Fentanyl and intubated, s/p HD yesterday with removal 4L. Afebrile. On PRVC/AC mode with PEEP; 10 and FIO2 45% 01/28 Patient remains sedated with Fentanyl and intubated. s/p HD yesterday with removal 3L. Placed on Amio drip yesterday for Afib with RVR, Objective Vital Signs Date Time Temp Pulse Resp B/P Pulse Ox O2 Delivery O2 Flow Rate FiO2 01/28/17 07:33 97 50 01/28/17 06:00 97 01/28/17 04:00 98.9 21 166/93 01/25/17 19:36 Ventilator Intake and Output 01/27/17 01/27/17 01/28/17 08:00 16:00 00:00 Intake Total 317 ml 464 ml 721 ml Output Total 50 ml 3150 ml 350 ml Balance 267 ml -2686 ml 371 ml Result Diagram: 01/28/17 0445 01/28/17 0445 Other Results Laboratory Tests Test 01/27/17 01/27/17 01/28/17 10:00 13:15 04:45 Activated Partial 29.4 SEC Thromboplast Time Blood Gas Puncture Site ART LINE Blood Gas Patient Temperature 98.6 Blood Gas HCO3 26 mmol/L Blood Gas Base Excess 2.0 mmol/L Blood Gas Oxygen Saturation 86 % Arterial Blood pH 7.45 Arterial Blood Partial 38 mmHg Pressure CO2 Arterial Blood Partial 61 mmHg Pressure O2 Arterial Blood Oxygen Content 10.4 Vol % Arterial Blood 1.9 % Carboxyhemoglobin Arterial Blood Methemoglobin 1.4 % Blood Gas Hemoglobin 8.5 G/DL Oxygen Delivery Device VENTILATOR Blood Gas Ventilator Setting PRVC/AC 600/18 Blood Gas Inspired Oxygen 50 % White Blood Count 10.2 TH/MM3 Red Blood Count 2.79 MIL/MM3 Hemoglobin 8.4 GM/DL Hematocrit 25.7 % Mean Corpuscular Volume 92.1 FL Mean Corpuscular Hemoglobin 29.9 PG Mean Corpuscular Hemoglobin 32.5 % Concent Red Cell Distribution Width 17.1 % Platelet Count 41 TH/MM3 Mean Platelet Volume 10.6 FL Neutrophils (%) (Auto) 93.8 % Lymphocytes (%) (Auto) 2.0 % Monocytes (%) (Auto) 4.0 % Eosinophils (%) (Auto) 0.0 % Basophils (%) (Auto) 0.2 % Neutrophils # (Auto) 9.6 TH/MM3 Lymphocytes # (Auto) 0.2 TH/MM3 Monocytes # (Auto) 0.4 TH/MM3 Eosinophils # (Auto) 0.0 TH/MM3 Basophils # (Auto) 0.0 TH/MM3 CBC Comment AUTO DIFF Sodium Level 140 MEQ/L Potassium Level 4.7 MEQ/L Chloride Level 99 MEQ/L Carbon Dioxide Level 26.1 MEQ/L Anion Gap 15 MEQ/L Blood Urea Nitrogen 75 MG/DL Creatinine 3.73 MG/DL Estimat Glomerular Filtration 16 ML/MIN Rate Random Glucose 135 MG/DL Calcium Level 7.5 MG/DL Total Bilirubin 0.8 MG/DL Aspartate Amino Transf 35 U/L (AST/SGOT) Alanine Aminotransferase 67 U/L (ALT/SGPT) Alkaline Phosphatase 67 U/L Total Protein 5.3 GM/DL Albumin 2.8 GM/DL Imaging Last Impressions Chest X-Ray 01/27/17 0000 Signed Impressions: Service Date/Time: Friday, January 27, 2017 07:20 - CONCLUSION: 1. Improved aeration of the left lung with residual opacity at the left base which could represent atelectasis, consolidation, and/or effusion. 2. Stable enlargement of the cardiac silhouette. Daniel Reyes MD Abdomen X-Ray 01/21/17 0000 Signed Impressions: Service Date/Time: Saturday, January 21, 2017 08:41 - CONCLUSION: Nondiagnostic study. Gurvinder Collier MD Renal Ultrasound 01/09/17 0000 Signed Impressions: Service Date/Time: Monday, January 09, 2017 13:56 - CONCLUSION: 1. Right kidney is sonographically normal. 2. Benign-appearing 2.4 x 1.5 cm cortical cyst in the midpole of the left kidney. 3. Subcentimeter echogenic, non-shadowing foci in the midpole of the left kidney would be unusual for stones and may represent ectopic hilar fat. No hydronephrosis. 4. Urinary bladder is decompressed with a Alanis catheter. Douglas Ward MD Chest Ultrasound 01/09/17 0000 Signed Impressions: Service Date/Time: Monday, January 09, 2017 08:18 - CONCLUSION: No left-sided pleural effusion. The abnormality in the left chest on chest radiograph is likely related to mucous plugging. When patient had a CT scan yesterday the left lung was well aerated. Edgardo Mayorga MD Chest CT 01/08/17 0600 Signed Impressions: Service Date/Time: Sunday, January 08, 2017 08:46 - CONCLUSION: Massive cardiomegaly with panchamber enlargement extensive coronary calcifications. Stable trace pericardial effusion. Increasing bibasilar consolidative changes with minimal bilateral pleural effusions.. Rhys Fritz MD FACR Thoracentesis 01/08/17 0000 Signed Impressions: Service Date/Time: Sunday, January 08, 2017 16:08 - CONCLUSION: Uncomplicated CT-guided thoracentesis on the right. The left sided thoracentesis was not performed as there was no significant left pleural fluid. The abnormality on most recent chest x-ray was secondary to mucous plugging and left sided atelectasis. Edgardo Mayorga MD Objective Remarks GENERAL: 71-year-old male, critically ill-appearing obese male resting in rotarest bed SKIN: Warm and dry. No rash HEAD: Atraumatic. Normocephalic. EYES: Pupils equal and round, 3mm and reactive. No scleral icterus. No injection or drainage. ENT: Bilateral Rhino Rocket newly placed . Positive blood from mouth with suctioning NECK: Trachea midline. Unable to assess JVD secondary to body habitus. Large right-sided neck hematoma without midline shift. Evolving ecchymoses. Left subclavian central line is clean dry and intact CARDIOVASCULAR: Tachycardia, IR. S1, S2 no S4 without murmur RESPIRATORY: Diminished breath sounds throughout. Few crackles in bases bilaterally. Breath sounds equal bilaterally. GASTROINTESTINAL: Abdomen soft, obese non-tender, nondistended. I Magana bowel sounds MUSCULOSKELETAL: Extremities with 1+ peripheral edema. No obvious deformities. Posterior tibialis is palpable bilaterally. Right femoral Vas-Cath is clean dry and intact NEUROLOGICAL: Intubated and sedated. Date of Insertion: January 05, 2017 Date of Insertion: January 17, 2017 Line: Central Venous Catheter Side: Left Location: Subclavian, Jugular A/P Assessment and Plan Neuro/Psych: Epistaxis Continue with Fentanyl infusion for sedation. Daily sedation vacation 01/12 New onset epistaxis, heparin discontinued Epistaxis-ENT consulted-nasal balloons in situ maintain balloons until 01/20 per ENT recommendation. Removed 01/20 but resumed bleeding so replaced yesterday - 01/21 ENT following - Dr. Byrd. Respiratory: Acute hypoxic respiratory failure Left lung consolidation 2/2 previous event of epistaxis, clotted blood left lung -resolved SONU Probable aspiration Possible multilobar [id number] Bilateral pleural effusions Continue with vent support keep sat >92% On PRVC/AC RR 18, TV 600, IT:1.3, PEEP: 10, FIO2 40% Will need perc trach when stable and PLT count recovers. Currently on Xopenex and Atrovent aerosols every 6 hours ICU vent bundle. Mucomyst nebs Q6 Pulmonology following- Dr. Burch Solu-Medrol 20 mg IV BID, off Flolan 01/08-right CT-guided thoracentesis-400 cc removed, sent for cytology and cultures s/p bronch . by- Dr. Burch for blood clots left lung Status post bronch 01/17 by filling carrier - bloody mucous plug at saturnino/mainstem section cleared. No obvious source of bleeding. s/p bronch 01/[address] Burch. -minimal secretions. CV: A. fib with RVR Left atrial appendage thrombus Cardiomyopathy Acute Systolic CHF Hypertension Dyslipidemia Continue with Amio drip, Coreg 6.25mg BID. Monitor HR and BP keep MAP>65mmHg 01/13- Heparin, ASA discontinued due to epistaxis 01/05 VLADIMIR( [employer])-left atrial thrombus EF 15-20%. Systolic function reduced. Diffuse hyperkinesis. 12/26 [facility] severe systolic dysfunction EF 1015%, mitral valve mild to moderate regurg, LAE, tricuspid Valve-mild to moderate regurg, small pericardial effusion, 12/19 cardiac cath left circumflex 90% occlusion Management per Cardiology -Dr. Jimenez Patient is at high risk of bleeding with anticoagulation Renal: Acute on chronic kidney disease stage IV Nephrology following-Dr. Hahn Monitor renal function, I/O's, avoid nephrotoxins. Vascath placement Hemodialysis initiated 01/14. s/p HD 01/27 with removal 3L Cr: 3.73 today from 3.97 FEN/GI: Morbid obesity On Tube feeds- Nepro @40ml/hr KUB abdomen 01/21: Non diagnostic study Prevacid for GI prophylaxis Bowel Colace/Senokot twice a day. On Reglan 5 every 8 and erythromycin 200 every 8 for bowel motility/prokinetic PhosLo 667 3 times a day Heme: Leukocytosis Normocytic anemia Thrombocytopenia Monitor CBC. Transfused 3 units PRBCs on admission Weakly positive HIT panel-CLIFFORD is negative. Due to gross hematuria and epistaxis all anticoagulants on hold currently. Hematology is following ID: Likely aspiration pneumonia 01/06 urine, sputum, blood cultures-NGTD 01/06-Legionella urine antigen negative 01/09 - bronchoscopy - yeast/ID to follow 01/12 - blood cultures 2 - no growth 01/20 - blood cultures 2 - staph Epi 09/06 bottles- likely contaminant Off ID per ID ( s/p Cefepime/Flagyl) -Dr. Gage following, -Monitor for signs of infections ( Fever, WBC) -Recent cultures- NGTD Endocrine: Close monitoring per ICU protocol-medium dose regimen -- SSI Accu-Cheks every 6 hours for glycemic control Prophylaxis: GI Prophylaxis Prevacid 30 mg at night DVT Prophylaxis -- SCDs, Lines: Peripheral IV's. 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 Time to perform other separately billable procedures was not included in the critical care time. Ari Betancourt MD January 28, 2017 08:46 Critical Care: The total critical care time was 35 minutes. Time to perform other separately billable procedures was not included in the critical care time. Ari Betancourt MD January 28, 2017 08:46
[2017-01-28 08:47] LABS: PLATELET ESTIMATE SMEAR LOW (NORMAL); PLATELET MORPHOLOGY ENLARGED (NORMAL); SCAN/DIFF FINAL DIFF MANUAL
[2017-01-28] MEDS: CHLORHEXIDINE 0.12% (ORAL KIT) 15 ML CUP MT SCH ×2 (09:59→19:45)
[2017-01-28] MEDS: SODIUM CHLORIDE 0.9% FLUSH 10 ML FLUSH IVF SCH (09:59)
[2017-01-28] MEDS: SODIUM CHLORIDE 0.9% FLUSH 10 ML FLUSH IV FLUSH SCH ×2 (09:59→19:46)
[2017-01-28] MEDS: methylPREDNISolone SOD SUCC 40 MG/1 ML VIAL IV PUSH SCH ×2 (10:00→19:45)
[2017-01-28] MEDS: CARVEDILOL 6.25 MG TAB PO SCH ×2 (10:00→19:45)
[2017-01-28] MEDS: CALCIUM ACETATE 667 MG CAP PO SCH ×3 (10:00→18:00)
[2017-01-28] MEDS: DOCUSATE SODIUM 100 MG/10 ML UDC PO SCH ×2 (10:00→19:45)
[2017-01-28] MEDS: SENNOSIDES SYRUP 8.8 MG/5 ML CUP PO SCH ×2 (10:00→19:45)
[2017-01-28] MEDS: LANSOPRAZOLE SOLUTAB 30 MG TAB NG SCH (10:00)
[2017-01-28] MEDS: hydrALAZINE HCL 20 MG/ML VIAL IV PUSH PRN (10:14)
--- NOTE | 2017-01-28 11:36 | HHI.NPPN ---
Subjective General Problems: Anemia, Edema, Heart Disease Renal Failure: Acute History of Present Illness 71-year-old the white male the who is transferred from [facility] to [facility] due to atrial fibrillation with fast ventricular response, he was in the heart catheterization lab and became unstable has to intubated the patient has chronic kidney disease, Cardiomyopathy ejection fraction of only 15% and has severe dilated cardiomyopathy with the clot in left atrium he is on heparin drip and currently on ventilator. Additional Remarks Patient remain on the vent. and sedated, intubated Objective Data Data 01/27/17 01/28/17 19:00 07:00 Intake Total 464 ml 1167 ml Output Total 3150 ml 400 ml Balance -2686 ml 767 ml IV Total 174 ml 626 ml Tube Feeding 190 ml 481 ml Tube Irrigant 100 ml Other 60 ml Output Urine Total 50 ml 100 ml Stool Total 100 ml 300 ml Hemodialysis 3000 ml Vital Signs Date Time Temp Pulse Resp B/P Pulse Ox O2 Delivery O2 Flow Rate FiO2 01/28/17 07:33 97 50 01/28/17 06:00 97 01/28/17 04:00 50 01/28/17 04:00 98.9 138 21 166/93 92 01/28/17 04:00 138 01/28/17 04:00 133 139/95 166/93 01/28/17 03:37 94 50 01/28/17 02:00 103 01/28/17 00:37 94 50 01/28/17 00:00 50 01/28/17 00:00 133 113/56 139/60 01/28/17 00:00 125 01/28/17 00:00 98.5 125 18 150/66 96 152/72 01/27/17 23:07 97 50 01/27/17 22:00 94 01/27/17 20:00 133 01/27/17 20:00 98.1 133 18 113/56 95 139/60 01/27/17 20:00 133 113/56 139/60 01/27/17 20:00 60 01/27/17 19:32 97 55 01/27/17 18:02 112 18 113/58 95 140/58 01/27/17 18:00 130 01/27/17 18:00 130 19 89/60 95 133/58 01/27/17 17:01 142 19 144/81 95 139/65 01/27/17 16:00 122 01/27/17 16:00 98.0 122 21 95/57 92 140/67 01/27/17 16:00 122 95/57 140/67 01/27/17 16:00 60 01/27/17 15:22 92 60 01/27/17 15:00 135 20 105/57 89 133/65 01/27/17 14:00 150 01/27/17 14:00 150 18 101/58 88 142/60 01/27/17 13:01 143 18 130/77 93 165/77 01/27/17 12:00 50 01/27/17 12:00 147 109/62 145/72 01/27/17 12:00 147 01/27/17 12:00 99.2 134 20 98/60 94 148/72 01/27/17 11:36 96 45 -: 01/28/17 0445 01/28/17 0445 Physical Exam General Appearance: Well Developed Eyes Eye Exam: Pupils Equal Throat Throat Exam: Oral Mucosa Kulm & Moist Pulmonary Resp Exam: Rhonchi, Decreased Bases, Diminished Breath Sounds Cardiology CV Exam: Arrhythmia Gastrointestinal/Abdomen GI Exam: Soft, Non-Tender, Distended Extremeties Extremities Exam: Moderate Edema, Pitting Edema, Dependent Edema Neurologic Neuro Exam: Sedated Assessment/Plan Problem List: (1) Acute renal failure Plan: Patient urine out put is lower He has poor ejection fraction and is intubated Severe cardiomyopathy prognosis is guarded. hemodialysis with Citrate based and Argatroban was done Labs improved next hemodialysis on Sunday FiO2 45%-50% Urine out put remain low. BUN and Creatinine are better post dialysis (2) CKD (chronic kidney disease) stage 4, GFR 15-29 ml/min Plan: Has high creatinine kidney ultrasound reviewed (3) CHF (congestive heart failure) Plan: Severe cardiomyopathy EF 15% (4) Atrial fibrillation with rapid ventricular response Plan: Has a blood clot in LA appendage (5) Thrombocytopenia Plan: platelets lower Problem Qualifiers (1) CHF (congestive heart failure): Christa Hahn MD January 28, 2017 11:35
[2017-01-28] MEDS: SODIUM CHLORIDE 0.9% FLUSH 10 ML FLUSH IV FLUSH PRN (21:15)
[2017-01-29] VITALS (32 sets, daily range): BP systolic 87–179; BP diastolic 46–104; PULSE 87–144; RESP 15–23; TEMP 98.6–101.7; O2SAT 84–99
[2017-01-29] MEDS: RESP: ACETYLCYSTEINE 10% 30 ML NEB NEB SCH ×2 (02:58→10:00)
[2017-01-29] MEDS: RESP: IPRATROPIUM 0.5 MG/2.5 ML NEB NEB SCH ×4 (02:58→20:00)
[2017-01-29] MEDS: CHLORHEXIDINE GLUCONATE 2 % 1 PACK (2 CLOTHS) TOP SCH (04:00)
[2017-01-29] MEDS: AMIODARONE INJ 450 MG in DEXTROSE 5% IN WATE(EXCEL) INJ 241 ML IV SCH ×4 (04:16→17:26)
[2017-01-29 05:18] LABS: AUTOMATED NEUTROPHIL # 11.7 TH/MM3 (1.8-7.7); BASOPHIL % 0.1 % (0.0-2.0); EOSINOPHIL % 0.3 % (0.0-4.0); HEMATOCRIT 26.6 % (39.0-51.0); LYMPHOCYTE # 0.4 TH/MM3 (1.0-4.8); MEAN CELL VOLUME 90.3 FL (80.0-100.0); MEAN CORPUSCULAR HEMOGLOBIN 30.3 PG (27.0-34.0); MEAN CORPUSCULAR HGB CONC 33.6 % (32.0-36.0); MONO % 4.3 % (0.0-8.0); NEUT % 92.3 % (16.0-70.0); PLATELET COUNT 70 TH/MM3 (150-450); RED BLOOD COUNT 2.94 MIL/MM3 (4.50-5.90); RED CELL DISTRIBUTION WIDTH 17.8 % (11.6-17.2); WHITE BLOOD COUNT 12.6 TH/MM3 (4.0-11.0)
[2017-01-29 05:27] LABS: HEMO FLAGS AUTO DIFF
[2017-01-29] MEDS: fentaNYL DRIP 250 ML IV SCH (05:32)
[2017-01-29] MEDS: ARTIFICIAL TEARS OPTH SOLN 15 ML BTL EACH EYE SCH ×3 (05:32→21:11)
[2017-01-29] MEDS: INSULIN ASPART SUPPLEMENTAL SCALE SQ SCH ×4 (05:32→23:00)
[2017-01-29] MEDS: METOCLOPRAMIDE HCL 10 MG/2 ML VIAL IV PUSH SCH ×3 (05:32→21:11)
[2017-01-29 05:37] LABS: BICARBONATE 25.9 MEQ/L (21.0-32.0); POTASSIUM 4.8 MEQ/L (3.5-5.1)
[2017-01-29 05:52] LABS: CALCIUM-PROTEIN CORRECTED 8.3 MG/DL (8.5-10.1)
[2017-01-29 07:14] LABS: PLATELET ESTIMATE SMEAR LOW (NORMAL); PLATELET MORPHOLOGY NORMAL (NORMAL)
[2017-01-29 07:15] LABS: SCAN/DIFF AUTO DIFF CONFIRMED
--- NOTE | 2017-01-29 07:36 | HHI.CCPN ---
Subjective Remarks/Hospital Course This is a 71-year-old gentleman that presented to [facility] secondary to dyspnea and atrial fibrillation with RVR. The patient has a medical history significant for obesity and hypertension. During his hospitalization at [facility], the patient underwent an echocardiogram which showed severe systolic dysfunction with an ejection fraction of 1015 % the patient then underwent a cardiac catheterization showing significance with left circumflex 90%. The patient underwent multiple attempts of unsuccessful synchronized cardioversion. The patient also underwent medical management with beta blockers, and calcium channel blockers that were also unsuccessful. The patient was transferred to [facility] for cardiac ablation with Dr. Jimenez. The patient was scheduled for cardiac ablation, the procedure was canceled. The patient required emergent intubation and required ventilator management a VLADIMIR was performed showing a clot in the left atrial appendage. The patient was placed on IV Cardizem, and an amiodarone infusion. Critical Care medicine was consulted for management. 01/06: Tmax 97.4. The patient remained on elevated vent settings with FiO2 of 1.0 overnight, PEEP requirements were increased to 8, to maintain a PaO2 of greater than [address] scan of the chest was obtained which noted bilateral effusions small, basilar consolidations right worse than the left, and a loculated area representing a possible pneumonia process, empyema, as well as aspiration or just loculated fluid as well as a small pericardial effusion. The patient continues on Cardizem and amiodarone infusions with a heart rate overnight 80s -115. The patient's vasopressor requirements of phenylephrine diminished to 20 mcgs. 01/07: Tmax 99.2. Yesterday the central line was placed for vasoactive medications and CVP monitoring, small hematoma noted near the right IJ area soft no compression of major vessels, with resolution of bleeding in that area. Phenylephrine was discontinued yesterday. The patient heart rate remains today [id number]. Cardizem infusion has been discontinued in the setting of EF of 10-15%. Esmolol infusion to be initiated this a.m.. Coumadin was initiated last night now placed on hold due to patient bleeding from nasopharynx and oropharynx. INR currently 1.2. Plan for CT thorax tomorrow, with possible IR intervention versus CVT consultation for possible empyema the patient will remain on heparin infusion, and transition onto Coumadin after any potential procedures to be initiated. Chest x-ray slightly improved FiO2 decreasing now 70%. Sedation vacation yesterday revealed GCS 11 T, patient alert responsive following commands. With initiation of antibiotics, leukocytosis resolved. ID consulted Dr. Gage. Blood cultures are pending. 01/08: Patient's heart rate 110-[address] scan of the chest imaging revealed fluid. Plan for thoracentesis and and studies of pleural fluid , this afternoon. The patient remains on amiodarone and heparin infusions, per cardiology. Heparin held, for thoracentesis this afternoon, and then will be resumed. The patient was maintained on CPAP trial for approximately one hour yesterday. During sedation vacation patient was alert following commands recognizing family. Plan to resume CPAP trials this afternoon post thoracentesis. 01/09: The patient underwent CT-guided thoracentesis yesterday , on the right side noted 400 cc of fluid was removed , with specimens ordered to be sent for evaluation .This morning chest x-ray performed showing almost complete opacification of the left lung. FiO2 requirements increase patient on FiO2 of 80%, O2 sat 94%. Left chest ultrasound obtained revealing no fluid. Consent obtained BAL performed, revealing emanating from the nearest previously ( patient was noted to have epistaxis with initiation of heparin on 01/06). Blood clots noted in left lung upon visualization with bronchoscopy, saline lavage applied, minimal blood clots removed. The patient was initiated on Mucomyst 10% , and pulmonology was consulted. Dr. Tasia Lama following. The patient shows no signs or evidence of bleeding actively, plan to consult ENT if signs of active bleeding become evident. Hemoglobin remains stable.The patient converted into sinus rhythm is today afternoon. Cardiology management of medications, IV amiodarone discontinued this afternoon. 01/10: Tmax 99.0. Chest x-ray shows slight improvement of left lung today. Plan for repeat bronchoscopy per Dr. Burch this a.m, and the patient continues on Mucomyst. The patient's cardiac rhythm reverted to A. fib last evening, amiodarone IV infusion reinstituted per Dr. Jimenez. 01/11: TMax 100.0. Much improved chest x-ray this morning. The patient continues in A. fib with a rate of 120, he continues on amiodarone, heparin infusion per cardiology. No evidence of active bleeding. 5/12 Patient Remains sedated with Diprivan, intubated. T:99.9. On Neosyn 15 mics , heparin and Amio drips. In Afib with RRV. Patient s/p repeat bronch with BAL yesterday by Dr. Burch and ETT replacement by Dr. Sanchez. On PC/AC with PEEP:14 , FIO2 100%. 01/13: TMax 100.2. Last night the nurse reported that the patient had a small amount of epistaxis, and blood in the oropharynx noted. The area continued to bleed during the night. ENT has been consulted. Heparin has been placed on hold , ASA has been discontinued in the setting of acute renal failure. The patient continues on amiodarone infusion , heart rate 120's. Neosynephrine has been discontinued, and Levophed instituted. Creatinine noted to be 4.5. As per report , states patient does not want dialysis. The patient continues on elevated PEEP of 14. 5/14: Heparin was discontinued yesterday in the setting of continued bleeding in the nasal/ oropharyngeal region. ENT was consulted and nasal packing was applied. During the night the patient still had small noted amount of bleeding from the oropharyngeal area plan today for oropharyngeal packing. Hgb 9, will transfuse .The patient was placed on norepinephrine for currently at 1-2 mcgs per minute. PEEP has been decreased to 12, with adequate oxygenation a PaO2 of 71. 5/15: Tmax 99.0. The patient continues to be anemic and thrombocytopenic, contributory factors being uremia. The patient's /family decided to pursue hemodialysis at this point. The patient received 1 unit of packed red blood cells yesterday. The patient was initiated on dialysis yesterday afternoon, with approximately 3 L removed. Nasal gauze packing removed and placement of nasal balloons by ENT yesterday. Oral gauze packing to be removed today. The patient received 2 separate doses of digoxin, A. fib heart rate ranging 80- < 120. The patient continues to have high ventilatory requirements, FiO2 was increased throughout the night to currently 80%, to maintain O2 sat greater than 92%. 01/16: FiO2 at 85%. Large clots removed from oropharynx overnight. Transfused 2 units PRBCs yesterday. No bowel movement. Tolerating tube feeds at 40 cc now with Nepro 01/17: Maximum 100.6. CURRENT TEMPERATURE 98.1. Central line pulled out yesterday. Flolan initiated yesterday and FiO2 down to 65%. Tolerating tube feeds. No bowel movement. Arousable weakly follow commands yesterday 01/18: Tmax 99.8. Currently afebrile. Initially, hemoptysis with desaturation requiring bronchoscopy. See bronchoscopy note. Roto-Rest bed ordered. FiO2 from 100-70% currently. On Nimbex drip. No BM. Tolerating tube feeds. 01/19: Afebrile. FiO2 down to 40%. We will attempt a wean Flolan today. On Nimbex drip. Positive BM yesterday. Tolerating tube feeds. 01/20: FiO2 back to 100%. Flolan "fell off "overnight. Ventilator adjusted back to 100%. Flolan reinstituted. Chest x-ray and ABG pending. Tolerating tube feeds. Positive BM. Afebrile. Subjective: 01/21: Intolerant of tube feeding. KUB pending. Afebrile. Bleeding from bilateral nares and Alanis overnight. Argatroban has been held. Positive BM. 01/22 Patient is sedated with Fentanyl , versed in addition he is on Nimbex. Receiving HD. TF on hold for high residuals. 01/23 Patient is on Roto prone bed sedated and intubated. s/p HD yesterday with removal 3L. On Nimbex, afebrile. 01/24 Patient remains sedated with Versed, Fentanyl and remains on Nimbex. On PC/ AC with PEEP: 10, FIO2 down 40%. For HD today. Afebrile. 01/25 Patient remains sedated and intubated . On PC/AC with PEEP: 10 and FIO2 50% . s/p HD yesterday with removal 4.5L. Afebrile. 01/26 Patient is sedated with Fentanyl off versed and Nimbex. s/p bronch yesterday by Dr. Burch. On PRVC/AC with PEEP: 10 and FIO2 down to 50% s/p HD yesterday with removal 1.5. For another HD session today. 01/27 Patient is sedated with Fentanyl and intubated, s/p HD yesterday with removal 4L. Afebrile. On PRVC/AC mode with PEEP; 10 and FIO2 45% 01/28 Patient remains sedated with Fentanyl and intubated. s/p HD yesterday with removal 3L. Placed on Amio drip yesterday for Afib with RVR, 01/29 No acute events overnight. Sedated with Fentanyl and intubated. Afebrile. On PRVC/AC with PEEP: 10 and FIO2 70% decreased to 60% Objective Vital Signs Date Time Temp Pulse Resp B/P Pulse Ox O2 Delivery O2 Flow Rate FiO2 01/29/17 06:00 138 01/29/17 04:00 70 01/29/17 04:00 98.8 18 147/104 87 179/93 01/25/17 19:36 Ventilator Intake and Output 01/28/17 01/28/17 01/29/17 08:00 16:00 00:00 Intake Total 446 ml 729 ml 865 ml Output Total 50 ml 125 ml 100 ml Balance 396 ml 604 ml 765 ml Result Diagram: 01/29/17 0440 01/29/17 0440 Other Results Laboratory Tests Test 01/29/17 04:40 White Blood Count 12.6 TH/MM3 Red Blood Count 2.94 MIL/MM3 Hemoglobin 8.9 GM/DL Hematocrit 26.6 % Mean Corpuscular Volume 90.3 FL Mean Corpuscular Hemoglobin 30.3 PG Mean Corpuscular Hemoglobin 33.6 % Concent Red Cell Distribution Width 17.8 % Platelet Count 70 TH/MM3 Mean Platelet Volume 11.0 FL Neutrophils (%) (Auto) 92.3 % Lymphocytes (%) (Auto) 3.0 % Monocytes (%) (Auto) 4.3 % Eosinophils (%) (Auto) 0.3 % Basophils (%) (Auto) 0.1 % Neutrophils # (Auto) 11.7 TH/MM3 Lymphocytes # (Auto) 0.4 TH/MM3 Monocytes # (Auto) 0.5 TH/MM3 Eosinophils # (Auto) 0.0 TH/MM3 Basophils # (Auto) 0.0 TH/MM3 CBC Comment AUTO DIFF Differential Comment AUTO DIFF CONFIRMED Platelet Estimate LOW Platelet Morphology Comment NORMAL Sodium Level 138 MEQ/L Potassium Level 4.8 MEQ/L Chloride Level 98 MEQ/L Carbon Dioxide Level 25.9 MEQ/L Anion Gap 14 MEQ/L Blood Urea Nitrogen 102 MG/DL Creatinine 4.49 MG/DL Estimat Glomerular Filtration 13 ML/MIN Rate Random Glucose 111 MG/DL Calcium Level 7.4 MG/DL Protein Corrected Calcium 8.3 MG/DL Total Protein 5.5 GM/DL Imaging Last Impressions Chest X-Ray 01/27/17 0000 Signed Impressions: Service Date/Time: Friday, January 27, 2017 07:20 - CONCLUSION: 1. Improved aeration of the left lung with residual opacity at the left base which could represent atelectasis, consolidation, and/or effusion. 2. Stable enlargement of the cardiac silhouette. Daniel Reyes MD Abdomen X-Ray 01/21/17 0000 Signed Impressions: Service Date/Time: Saturday, January 21, 2017 08:41 - CONCLUSION: Nondiagnostic study. Gurvinder Collier MD Renal Ultrasound 01/09/17 0000 Signed Impressions: Service Date/Time: Monday, January 09, 2017 13:56 - CONCLUSION: 1. Right kidney is sonographically normal. 2. Benign-appearing 2.4 x 1.5 cm cortical cyst in the midpole of the left kidney. 3. Subcentimeter echogenic, non-shadowing foci in the midpole of the left kidney would be unusual for stones and may represent ectopic hilar fat. No hydronephrosis. 4. Urinary bladder is decompressed with a Alanis catheter. Douglas Ward MD Chest Ultrasound 01/09/17 0000 Signed Impressions: Service Date/Time: Monday, January 09, 2017 08:18 - CONCLUSION: No left-sided pleural effusion. The abnormality in the left chest on chest radiograph is likely related to mucous plugging. When patient had a CT scan yesterday the left lung was well aerated. Edgardo Mayorga MD Chest CT 01/08/17 0600 Signed Impressions: Service Date/Time: Sunday, January 08, 2017 08:46 - CONCLUSION: Massive cardiomegaly with panchamber enlargement extensive coronary calcifications. Stable trace pericardial effusion. Increasing bibasilar consolidative changes with minimal bilateral pleural effusions.. Rhys Fritz MD FACR Thoracentesis 01/08/17 0000 Signed Impressions: Service Date/Time: Sunday, January 08, 2017 16:08 - CONCLUSION: Uncomplicated CT-guided thoracentesis on the right. The left sided thoracentesis was not performed as there was no significant left pleural fluid. The abnormality on most recent chest x-ray was secondary to mucous plugging and left sided atelectasis. Edgardo Mayorga MD Objective Remarks GENERAL: 71-year-old male, critically ill-appearing obese male resting in rotarest bed SKIN: Warm and dry. No rash HEAD: Atraumatic. Normocephalic. EYES: Pupils equal and round, 3mm and reactive. No scleral icterus. No injection or drainage. ENT: Bilateral Rhino Rocket newly placed . Positive blood from mouth with suctioning NECK: Trachea midline. Unable to assess JVD secondary to body habitus. Large right-sided neck hematoma without midline shift. Evolving ecchymoses. Left subclavian central line is clean dry and intact CARDIOVASCULAR: Tachycardia, IR. S1, S2 no S4 without murmur RESPIRATORY: Diminished breath sounds throughout. Few crackles in bases bilaterally. Breath sounds equal bilaterally. GASTROINTESTINAL: Abdomen soft, obese non-tender, nondistended. I Magana bowel sounds MUSCULOSKELETAL: Extremities with 1+ peripheral edema. No obvious deformities. Posterior tibialis is palpable bilaterally. Right femoral Vas-Cath is clean dry and intact NEUROLOGICAL: Intubated and sedated. Date of Insertion: January 05, 2017 Date of Insertion: January 17, 2017 Line: Central Venous Catheter Side: Left Location: Subclavian, Jugular A/P Assessment and Plan Neuro/Psych: Epistaxis Change fentanyl to Diprivan infusion Daily sedation vacation Patient doesn't follow commands off sedation. Will check EEG and get CT brain when stable. 01/12 New onset epistaxis, heparin discontinued Epistaxis-ENT consulted-nasal balloons in situ maintain balloons until 01/20 per ENT recommendation. Removed 01/20 but resumed bleeding so replaced yesterday - 01/21 ENT following - Dr. Byrd. Respiratory: Acute hypoxic respiratory failure Left lung consolidation 2/2 previous event of epistaxis, clotted blood left lung -resolved SONU Probable aspiration Possible multilobar [id number] Bilateral pleural effusions Continue with vent support keep sat >92% On PRVC/AC RR 18, TV 600, IT:1.3, PEEP: 10, FIO2 60%. Decrease FIO2 as dennis. Will need perc trach when stable and PLT count recovers. Currently on Xopenex and Atrovent aerosols every 6 hours ICU vent bundle. Mucomyst nebs Q6 Pulmonology following- Dr. Burch Solu-Medrol 20 mg IV BID, off Flolan 01/08-right CT-guided thoracentesis-400 cc removed, sent for cytology and cultures s/p bronch . by- Dr. 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 No obvious source of bleeding. s/p bronch 01/[address] Burch. -minimal secretions. Check CXR today CV: A. fib with RVR Left atrial appendage thrombus Cardiomyopathy Acute Systolic CHF Hypertension Dyslipidemia Continue with Amio drip, Coreg 6.25mg BID. Monitor HR and BP keep MAP>65mmHg Will place on Cardizem drip for rate control. 01/13- Heparin, ASA discontinued due to epistaxis 01/05 VLADIMIR( Line Mechanic)-left atrial thrombus EF 15-20%. Systolic function reduced. Diffuse hyperkinesis. 12/26 [facility] severe systolic dysfunction EF 1015%, mitral valve mild to moderate regurg, LAE, tricuspid Valve-mild to moderate regurg, small pericardial effusion, 12/19 cardiac cath left circumflex 90% occlusion Management per Cardiology -Dr. Jimenez Patient is at high risk of bleeding with anticoagulation Renal: Acute on chronic kidney disease stage IV Nephrology following-Dr. Hahn Monitor renal function, I/O's, avoid nephrotoxins. Vascath placement Hemodialysis initiated 01/14. s/p HD 01/27 with removal 3L, for possible HD today Cr 4.49 today from: 3.73 FEN/GI: Morbid obesity On Tube feeds- Nepro @40ml/hr KUB abdomen 01/21: Non diagnostic study Prevacid for GI prophylaxis Bowel Colace/Senokot twice a day. On Reglan 5 every 8 and erythromycin 200 every 8 for bowel motility/prokinetic PhosLo 667 3 times a day Heme: Leukocytosis Normocytic anemia Thrombocytopenia Monitor CBC. Transfused 3 units PRBCs on admission Weakly positive HIT panel-CLIFFORD is negative. Due to gross hematuria and epistaxis all anticoagulants on hold currently. Hematology is following ID: Likely aspiration pneumonia 01/06 urine, sputum, blood cultures-NGTD 01/06-Legionella urine antigen negative 01/09 - bronchoscopy - yeast/ID to follow 01/12 - blood cultures 2 - no growth 01/20 - blood cultures 2 - staph Epi 09/06 bottles- likely contaminant Off ID per ID ( s/p Cefepime/Flagyl) -Dr. Gage following, -Monitor for signs of infections ( Fever, WBC) -Recent cultures- NGTD Endocrine: Close monitoring per ICU protocol-medium dose regimen -- SSI Accu-Cheks every 6 hours for glycemic control Prophylaxis: GI Prophylaxis Prevacid 30 mg at night DVT Prophylaxis -- SCDs, Lines: Peripheral IV's. Right femoral HD catheter 01/19, Left subclavian CVL 01/17 Patient developed hematoma on right side of his neck from previous attempt of central line placement. Dispo: is Olena Muhammad [phone] Discussed with patient's family( &daughter) and updated them on his condition. Critical Care: The total critical care time was 35 minutes. Time to perform other separately billable procedures was not included in the critical care time. Ari Betancourt MD January 29, 2017 07:36
--- NOTE | 2017-01-29 08:23 | RADRPT ---
EXAM DATE/TIME: 01/29/2017 07:37 [place] COMPARISON: CHEST SINGLE AP, January 26, 2017, 18:15. CHEST SINGLE AP, January 27, 2017, 7:20. INDICATIONS : Short of breath. MEDICAL HISTORY : Hypertension. SURGICAL HISTORY : Coronary artery stent. ENCOUNTER: Initial ACUITY: 1 month PAIN SCORE: Non-responsive. LOCATION: Bilateral chest FINDINGS: Portable AP views of the chest demonstrate stable mild enlargement of the cardiac silhouette. ETT, NG tube, and left subclavian central line remain present. There are bibasilar pleural-parenchymal opaci ties that appear slightly increased. There is consolidation in the left upper lung zone. No pneumotho rax is visualized. Clips overlie the right inferior neck. CONCLUSION: 1. Moderate-sized bibasilar opacities likely representing pleural effusions with associated volume lo ss and or consolidation. These appear slightly larger than on yesterday's examination. 2. New or increased consolidation in the left upper lung zone. 3. Stable mild enlargement of the cardiac silhouette. Daniel Reyes MD on January 29, 2017 at 8:20 Board Certified Radiologist. This report was verified electronically.
[2017-01-29] MEDS ORDERED: METOPROLOL TARTRATE 5 MG/5 ML VIAL IV PUSH ONE (08:30)
[2017-01-29] MEDS: CHLORHEXIDINE 0.12% (ORAL KIT) 15 ML CUP MT SCH ×2 (08:37→19:39)
[2017-01-29] MEDS: SODIUM CHLORIDE 0.9% FLUSH 10 ML FLUSH IVF SCH (08:38)
[2017-01-29] MEDS: SENNOSIDES SYRUP 8.8 MG/5 ML CUP PO SCH ×2 (08:38→19:38)
[2017-01-29] MEDS: DOCUSATE SODIUM 100 MG/10 ML UDC PO SCH ×2 (08:38→19:38)
[2017-01-29] MEDS: LANSOPRAZOLE SOLUTAB 30 MG TAB NG SCH (08:38)
[2017-01-29] MEDS: CARVEDILOL 6.25 MG TAB PO SCH ×2 (08:38→19:38)
[2017-01-29] MEDS: SODIUM CHLORIDE 0.9% FLUSH 10 ML FLUSH IV FLUSH SCH ×2 (08:38→19:39)
[2017-01-29] MEDS: CALCIUM ACETATE 667 MG CAP PO SCH ×3 (08:38→17:25)
[2017-01-29] MEDS: methylPREDNISolone SOD SUCC 40 MG/1 ML VIAL IV PUSH SCH ×2 (08:39→19:38)
[2017-01-29] MEDS ORDERED: DILTIAZEM HCL 25 MG/5 ML VIAL IV ONE (08:45)
--- NOTE | 2017-01-29 08:51 | PD.ONC.PN ---
Subjective Subjective Remarks Afebrile overnight. Patient remains intubated, sedated, critically ill. Rhino rockets still in place. some blood with ET tube suctioning. No obvious rectal bleeding or black stools. Per nurse, patient not waking up on sedation vacations. Objective Data Date Time Temp Pulse Resp B/P Pulse Ox O2 Delivery O2 Flow Rate FiO2 01/29/17 07:30 95 60 01/29/17 06:00 138 01/29/17 04:00 70 01/29/17 04:00 129 01/29/17 04:00 98.8 129 18 147/104 87 179/93 01/29/17 04:00 129 147/104 179/93 01/29/17 03:32 94 70 01/29/17 02:00 131 01/29/17 00:00 98.6 131 19 117/72 93 115/62 01/29/17 00:00 131 01/29/17 00:00 70 01/29/17 00:00 131 117/72 115/62 01/28/17 23:15 94 70 01/28/17 22:00 137 01/28/17 20:00 70 01/28/17 20:00 99.0 142 19 144/74 95 127/65 01/28/17 20:00 142 114/74 127/65 01/28/17 20:00 142 01/28/17 19:53 93 70 01/28/17 18:00 134 01/28/17 17:00 141 19 111/64 92 117/61 01/28/17 16:25 91 70 01/28/17 16:00 98.4 120 18 114/60 89 118/60 01/28/17 16:00 120 114/60 118/60 01/28/17 16:00 120 01/28/17 16:00 70 01/28/17 15:00 134 19 123/72 93 134/64 01/28/17 14:01 134 19 132/73 93 142/68 01/28/17 14:00 136 01/28/17 13:00 142 18 140/70 88 153/71 01/28/17 12:00 136 01/28/17 12:00 136 148/90 161/73 01/28/17 12:00 99.2 136 18 148/90 100 161/73 01/28/17 12:00 75 01/28/17 11:48 91 45 01/28/17 11:04 135 18 132/70 93 148/65 01/28/17 10:00 129 18 140/74 94 128/118 01/28/17 10:00 129 01/29/17 01/29/17 01/29/17 07:00 15:00 23:00 Intake Total 501 ml Output Total 100 ml Balance 401 ml Result Diagram: 01/29/17 0440 01/29/17 0440 Laboratory Results Laboratory Tests Test 01/29/17 04:40 White Blood Count 12.6 TH/MM3 Red Blood Count 2.94 MIL/MM3 Hemoglobin 8.9 GM/DL Hematocrit 26.6 % Mean Corpuscular Volume 90.3 FL Mean Corpuscular Hemoglobin 30.3 PG Mean Corpuscular Hemoglobin 33.6 % Concent Red Cell Distribution Width 17.8 % Platelet Count 70 TH/MM3 Mean Platelet Volume 11.0 FL Neutrophils (%) (Auto) 92.3 % Lymphocytes (%) (Auto) 3.0 % Monocytes (%) (Auto) 4.3 % Eosinophils (%) (Auto) 0.3 % Basophils (%) (Auto) 0.1 % Neutrophils # (Auto) 11.7 TH/MM3 Lymphocytes # (Auto) 0.4 TH/MM3 Monocytes # (Auto) 0.5 TH/MM3 Eosinophils # (Auto) 0.0 TH/MM3 Basophils # (Auto) 0.0 TH/MM3 CBC Comment AUTO DIFF Differential Comment AUTO DIFF CONFIRMED Platelet Estimate LOW Platelet Morphology Comment NORMAL Sodium Level 138 MEQ/L Potassium Level 4.8 MEQ/L Chloride Level 98 MEQ/L Carbon Dioxide Level 25.9 MEQ/L Anion Gap 14 MEQ/L Blood Urea Nitrogen 102 MG/DL Creatinine 4.49 MG/DL Estimat Glomerular Filtration 13 ML/MIN Rate Random Glucose 111 MG/DL Calcium Level 7.4 MG/DL Protein Corrected Calcium 8.3 MG/DL Total Protein 5.5 GM/DL Imaging Studies Last 24 hours Impressions Chest X-Ray 01/29/17 0000 Signed Impressions: Service Date/Time: Sunday, January 29, 2017 07:37 - CONCLUSION: 1. Moderate- sized bibasilar opacities likely representing pleural effusions with associated volume loss and or consolidation. These appear slightly larger than on yesterday's examination. 2. New or increased consolidation in the left upper lung zone. 3. Stable mild enlargement of the cardiac silhouette. Daniel Reyes MD Administered Medications Medications (Trade) Dose Ordered Sig/Claire Route PRN Reason Start Time Stop Time Status Last Admin Dose Admin Propofol (Diprivan 1000 Mg/100ml Inj) 100 ml @ 0 mls/hr TITRATE IV 01/05/17 21:45 01/21/17 19:16 Docusate Sodium (Colace Liq) 100 mg Q12HR PO 01/06/17 21:00 01/29/17 08:38 Sodium Chloride (NS Flush) 2 ml UNSCH PRN IV FLUSH FLUSH AFTER USING IV ACCESS 01/06/17 13:15 01/28/17 21:15 Sodium Chloride (NS Flush) 2 ml BID IV FLUSH 01/06/17 21:00 01/29/17 08:38 Chlorhexidine Gluconate (Chlorhexidine 2% Cloth) 3 pack Taper DAILY@04 TOP 01/07/17 04:00 01/03/18 03:59 01/29/17 04:00 Dextrose (D50w (Vial) Inj) 25 ml UNSCH PRN IV PUSH HYPOGLYCEMIA-SEE COMMENTS 01/09/17 07:15 01/21/17 19:15 Insulin Aspart (NovoLOG SUPPLEMENTAL SCALE) 1 Q6HR SQ 01/10/17 06:00 01/20/17 00:07 Bisacodyl (Dulcolax Supp) 10 mg DAILY PRN RECTAL CONSTIPATION 01/10/17 09:15 Hold 01/10/17 09:56 Sennosides (Senna Liq) 8.8 mg BID PO 01/16/17 09:00 01/29/17 08:38 Glycerin (Glycerin Adult Supp) 2 gm BID PRN RECTAL CONSTIPATION 01/17/17 06:45 01/17/17 14:30 Amiodarone HCl (Cordarone) 200 mg Q12HR PO 01/17/17 09:00 Hold 01/27/17 08:27 Sodium Chloride DAILY IVF 01/17/17 12:30 01/29/17 08:38 Cisatracurium Besylate/Sodium Chloride (Nimbex Inj/NS 250 ml Inj) 250 ml @ 0 mls/hr TITRATE IV 01/17/17 14:30 01/25/17 05:48 Artificial Tears (Tears Naturale Opth Soln) 1 drop Q8HR EACH EYE 01/17/17 22:00 01/29/17 05:32 Chlorhexidine Gluconate 15 ml 15 ml BID@08,20 MT 01/17/17 20:00 01/29/17 08:37 Midazolam HCl 100 ml @ 0 mls/hr TITRATE IV 01/17/17 16:45 01/25/17 00:18 Fentanyl Citrate (fentaNYL DRIP) 250 ml @ 0 mls/hr TITRATE IV 01/17/17 16:45 01/29/17 05:32 Metoclopramide HCl (Reglan Inj) 5 mg Q8HR IV PUSH 01/18/17 06:45 01/29/17 05:32 Calcium Acetate (Phoslo) 667 mg TID PO 01/19/17 09:00 01/29/17 08:38 Lansoprazole 30 mg 30 mg DAILY NG 01/19/17 09:00 01/29/17 08:38 Sodium Chloride (NS 1000 ml Inj) 1,000 ml @ 0 mls/hr Q0M PRN IV WITH DIALYSIS 01/19/17 08:06 01/27/17 09:24 Mannitol (Mannitol Inj) 12.5 gm UNSCH PRN IV WITH DIALYSIS 01/19/17 08:15 01/26/17 15:26 Albumin Human (Albumin 25% Inj) 25 gm UNSCH PRN IV WITH DIALYSIS 01/19/17 08:15 01/27/17 09:22 Sodium Chloride (NS Flush) 5 ml UNSCH PRN IV FLUSH WITH DIALYSIS 01/19/17 08:15 01/27/17 09:22 Gentamicin Sulfate (Gentamicin (Dialysis) Inj) 20 mg UNSCH PRN IV WITH DIALYSIS 01/19/17 08:15 01/27/17 09:23 Epoetin Rizwan 4000 units 4,000 units UNSCH PRN IV WITH DIALYSIS 01/19/17 08:15 01/27/17 09:23 Norepinephrine Bitartrate/Sodium Chloride (Levophed Inj/NS 250 ml Inj) 250 ml @ 0 mls/hr TITRATE IV 01/20/17 08:00 01/20/17 10:21 Methylprednisolone Sodium Succinate (SoluMEDROL INJ) 20 mg BID IV PUSH 01/24/17 21:00 01/29/17 08:39 Carvedilol (Coreg) 6.25 mg Q12HR PO 01/24/17 21:00 01/29/17 08:38 Labetalol HCl (Trandate Inj) 10 mg Q1HR PRN IV PUSH SBP>160, DBP>90, HR>65 01/24/17 19:15 01/24/17 19:28 Hydralazine HCl 10 mg 10 mg Q1HR PRN IV PUSH SBP>160, DBP>90 01/24/17 19:15 01/28/17 10:14 Amiodarone HCl/ Dextrose (Cordarone Inj/ D5W ([place]) Inj) 250 ml @ 0 mls/hr CONTINUOUS IV 01/27/17 14:45 01/29/17 04:16 Objective Remarks GENERAL: Intubated, sedated male, supine in bed SKIN: Warm and dry. ecchymoses and swelling along right neck appears unchanged HEAD: Normocephalic. rhino rockets in bilateral nares, no bleeding. EYES: No injection or drainage. NECK: Supple, trachea midline. CARDIOVASCULAR: tachycardic, irregular rhythm RESPIRATORY: anterior [place] with scattered rhonchi. on mechanical ventilation GASTROINTESTINAL: Abdomen distended. EXTREMITIES: No cyanosis NEUROLOGICAL: intubated, sedated Assessment/Plan Problem List: (1) Thrombosis of left atrium without antecedent myocardial infarction Status: Acute Plan: 01/29/17: anticoagulation remains on hold due to high bleeding risk. may consider starting prophylactic dose heparin and seeing how he tolerates --on Argatroban (on hold at present d/t bleeding) until current bag finished then ok to resume UFH (2) Thrombocytopenia Status: Acute Plan: 01/29/17. improving today. monitor CBC --likely d/t bleeding + acute illness. --CLIFFORD negative (3) Epistaxis Status: Acute Plan: 01/29/17. Rhino rockets in place. removal per ENT. --Rhino rockets replaced 01/21 after being removed 01/20 --anticoagulation on hold Assessment 71y/o male admitted in afib w/RVR. 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 --hematoma from central line placement in the right neck --epistaxis requiring nasal plugs Plan 1. monitor CBC 2. hold anticoagulation for bleeding. may consider starting heparin prophylaxis if hgb remains stable. Attending Statement The exam, history, and the medical decision-making described in the above note were completed with the assistance of the mid-level provider. I reviewed and agree with the findings presented. I attest that I had a [id number] encounter with the patient on the same day, and personally performed and documented my assessment and findings in the medical record. Pt seen and examined. Still critically ill, pt in ICU, still in Afib RVR HR 120's. No overt bleeding. R neck hematoma tracking down. Nasal baloon still in place, dry crust in place. Noted platelet increasing. Dialysis still avoiding heparin in the vascath. Continue argatroban. Priya Fraga January 29, 2017 08:51 Meghan Torres MD January 29, 2017 12:28
[2017-01-29] MEDS: DILTIAZEM INJ 125 MG in SODIUM CHLORIDE 0.9% INJ 100 ML IV SCH ×3 (09:13→21:17)
[2017-01-29] MEDS: hydrALAZINE HCL 20 MG/ML VIAL IV PUSH PRN (09:33)
[2017-01-29] MEDS: SODIUM CHLORIDE 0.9% FLUSH 10 ML FLUSH IV FLUSH PRN (09:33)
[2017-01-29] MEDS ORDERED: HYOSCYAMINE 0.125 MG TAB PO PRN (11:00)
[2017-01-29] MEDS: ACETAMINOPHEN 325 MG TAB PO PRN (12:07)
[2017-01-29] MEDS ORDERED: Vancomycin Consult Pharmacy 1 EA OTHER SCH (12:45)
--- NOTE | 2017-01-29 12:58 | HHI.NPPN ---
Subjective General Problems: Anemia, Edema, Heart Disease Renal Failure: Acute History of Present Illness 71-year-old the white male the who is transferred from [facility] to [facility] due to atrial fibrillation with fast ventricular response, he was in the heart catheterization lab and became unstable has to intubated the patient has chronic kidney disease, Cardiomyopathy ejection fraction of only 15% and has severe dilated cardiomyopathy with the clot in left atrium he is on heparin drip and currently on ventilator. Additional Remarks Patient remain on the vent. and sedated, intubated Objective Data Data 01/28/17 01/29/17 19:00 07:00 Intake Total 729 ml 1366 ml Output Total 125 ml 200 ml Balance 604 ml 1166 ml IV Total 289 ml 413 ml Tube Feeding 340 ml 893 ml Tube Irrigant 100 ml Other 60 ml Output Urine Total 75 ml 200 ml Stool Total 50 ml Vital Signs Date Time Temp Pulse Resp B/P Pulse Ox O2 Delivery O2 Flow Rate FiO2 01/29/17 12:17 95 75 01/29/17 12:00 75 01/29/17 12:00 114 107/65 148/64 01/29/17 12:00 114 20 107/65 92 148/64 01/29/17 12:00 114 01/29/17 11:45 134 18 160/70 90 01/29/17 11:30 137 18 166/73 89 01/29/17 11:15 131 18 155/66 84 01/29/17 11:00 133 18 130/61 92 147/61 01/29/17 10:45 123 18 138/58 92 01/29/17 10:30 126 18 152/62 93 01/29/17 10:15 136 18 149/63 93 01/29/17 10:00 130 01/29/17 10:00 130 18 142/74 92 160/67 01/29/17 09:00 119 18 133/94 92 167/85 01/29/17 08:45 131 18 155/80 95 01/29/17 08:30 138 18 163/79 95 01/29/17 08:00 138 01/29/17 08:00 138 145/93 163/87 01/29/17 08:00 60 01/29/17 08:00 99.2 138 18 145/93 95 163/87 5/29/17 07:30 95 60 01/29/17 07:00 134 18 118/65 94 114/58 01/29/17 06:00 138 01/29/17 04:00 70 01/29/17 04:00 129 01/29/17 04:00 98.8 129 18 147/104 87 179/93 01/29/17 04:00 129 147/104 179/93 01/29/17 03:32 94 70 01/29/17 02:00 131 01/29/17 00:00 98.6 131 19 117/72 93 115/62 01/29/17 00:00 131 01/29/17 00:00 70 01/29/17 00:00 131 117/72 115/62 01/28/17 23:15 94 70 01/28/17 22:00 137 01/28/17 20:00 70 01/28/17 20:00 99.0 142 19 144/74 95 127/65 01/28/17 20:00 142 114/74 127/65 01/28/17 20:00 142 01/28/17 19:53 93 70 01/28/17 18:00 134 01/28/17 17:00 141 19 111/64 92 117/61 01/28/17 16:25 91 70 01/28/17 16:00 98.4 120 18 114/60 89 118/60 01/28/17 16:00 120 114/60 118/60 01/28/17 16:00 120 01/28/17 16:00 70 01/28/17 15:00 134 19 123/72 93 134/64 01/28/17 14:01 134 19 132/73 93 142/68 01/28/17 14:00 136 01/28/17 13:00 142 18 140/70 88 153/71 -: 01/29/17 0440 01/29/17 0440 Physical Exam General Appearance: Well Developed Eyes Eye Exam: Pupils Equal Throat Throat Exam: Oral Mucosa [place] & Moist Pulmonary Resp Exam: Rhonchi, Decreased Bases, Diminished Breath Sounds Cardiology CV Exam: Arrhythmia Gastrointestinal/Abdomen GI Exam: Soft, Non-Tender, Distended Extremeties Extremities Exam: Moderate Edema, Pitting Edema, Dependent Edema Neurologic Neuro Exam: Sedated Assessment/Plan Problem List: (1) Acute renal failure Plan: Patient urine out put is lower He has poor ejection fraction and is intubated Severe cardiomyopathy prognosis is guarded. hemodialysis dialysis issues with clotting, using Argatroban and Citrate based dialysate he is due today continue Hemodialysis proceedings noted 3 L UF using Citrate based dialysate Labs improved FiO2 75% Urine out put remain low. BUN and Creatinine are rising (2) CKD (chronic kidney disease) stage 4, GFR 15-29 ml/min Plan: Has high creatinine kidney ultrasound reviewed (3) CHF (congestive heart failure) Plan: Severe cardiomyopathy EF 15% (4) Atrial fibrillation with rapid ventricular response Plan: Has a blood clot in [place] appendage (5) Thrombocytopenia Plan: platelets 54 k Problem Qualifiers (1) CHF (congestive heart failure): Christa Hahn MD January 29, 2017 12:58 Christa Hahn MD January 29, 2017 12:58
[2017-01-29] MEDS ORDERED: VANCOMYCIN INJ 1,000 MG in SODIUM CHLOR 0.9% 250 ML INJ 250 ML IV ONE (13:00)
--- NOTE | 2017-01-29 13:33 | HHI.PR ---
Subjective Remarks Sedated on Vent support ,now on PEEP 10. FIO2 at 70%. Worse today and CXR shows left base atelectasis No active bleeding. Will have dialysis again today Objective Vital Signs Date Time Temp Pulse Resp B/P Pulse Ox O2 Delivery O2 Flow Rate FiO2 01/29/17 12:17 95 75 01/29/17 12:00 75 01/29/17 12:00 114 107/65 148/64 01/29/17 12:00 114 20 107/65 92 148/64 01/29/17 12:00 114 01/29/17 11:45 134 18 160/70 90 01/29/17 11:30 137 18 166/73 89 01/29/17 11:15 131 18 155/66 84 01/29/17 11:00 133 18 130/61 92 147/61 01/29/17 10:45 123 18 138/58 92 01/29/17 10:30 126 18 152/62 93 01/29/17 10:15 136 18 149/63 93 01/29/17 10:00 130 01/29/17 10:00 130 18 142/74 92 160/67 01/29/17 09:00 119 18 133/94 92 167/85 01/29/17 08:45 131 18 155/80 95 01/29/17 08:30 138 18 163/79 95 01/29/17 08:00 138 01/29/17 08:00 138 145/93 163/87 01/29/17 08:00 60 01/29/17 08:00 99.2 138 18 145/93 95 163/87 01/29/17 07:30 95 60 01/29/17 07:00 134 18 118/65 94 114/58 01/29/17 06:00 138 01/29/17 04:00 70 01/29/17 04:00 129 01/29/17 04:00 98.8 129 18 147/104 87 179/93 01/29/17 04:00 129 147/104 179/93 01/29/17 03:32 94 70 01/29/17 02:00 131 01/29/17 00:00 98.6 131 19 117/72 93 115/62 01/29/17 00:00 131 01/29/17 00:00 70 01/29/17 00:00 131 117/72 115/62 01/28/17 23:15 94 70 01/28/17 22:00 137 01/28/17 20:00 70 01/28/17 20:00 99.0 142 19 144/74 95 127/65 01/28/17 20:00 142 114/74 127/65 01/28/17 20:00 142 01/28/17 19:53 93 70 01/28/17 18:00 134 01/28/17 17:00 141 19 111/64 92 117/61 01/28/17 16:25 91 70 01/28/17 16:00 98.4 120 18 114/60 89 118/60 01/28/17 16:00 120 114/60 118/60 01/28/17 16:00 120 01/28/17 16:00 70 01/28/17 15:00 134 19 123/72 93 134/64 01/28/17 14:01 134 19 132/73 93 142/68 01/28/17 14:00 136 I/O 01/28/17 01/28/17 01/28/17 01/29/17 01/29/17 01/29/17 07:00 15:00 23:00 07:00 15:00 23:00 Intake Total 446 ml 729 ml 865 ml 501 ml Output Total 50 ml 125 ml 100 ml 100 ml Balance 396 ml 604 ml 765 ml 401 ml IV Total 193 ml 289 ml 213 ml 200 ml Tube Feeding 223 ml 340 ml 622 ml 271 ml Tube Irrigant 100 ml Other 30 ml 30 ml 30 ml Output Urine Total 50 ml 75 ml 100 ml 100 ml Stool Total 50 ml Result Diagram: 01/29/17 0440 01/29/17 0440 Objective Remarks GENERAL: This is an obese, elderly man who is intubated, sedated, assisting the ventilator. HEENT: Head is normocephalic. Pupils are reactive. Nasal packing noted NECK:Has a neck hematoma on right. Trachea is midline. CHEST: Decreased breath sounds with crackles at both lung bases.Occ wheeze heard. Decreased breath sounds on left HEART: The heart sounds are irregular S1-S2. No murmur. ABDOMEN: Soft. Obese without masses. No organomegaly. EXTREMITIES: 1 + edema. Decreased peripheral pulses. Reflexes are not elicited. The patient is sedated. SKIN: Dry and cool. Assessment and Plan Assessment and Plan IMPRESSION 1. Hypoxic respiratory failure. 2. Left lower lobe atelectasis and possible pneumonia with aspiration. 3. Left pleural effusion resolved. 4. Cardiomyopathy and congestive heart failure. 5. Obstructive sleep apnea. 6. Diabetes mellitus. 7. Atrial fibrillation. 8. Nasopharyngeal bleed Plan : 1. Wean FIO2 to keep sat >90. 2. PEEP to 10 CM, FIO2 to 70 % 3. Antibiotics per ID. 4. CBC CXR ,BMP in am. 5. Nebs qid , duoneb. 6. Trach suction and Lavage 7. Tube feeds at 50 CC 8. Solumedrol 20 mg IV q12h 9. Dialysis today. 10. Plan Tracheostomy soon. Julius Burch MD January 29, 2017 13:33
[2017-01-29] MEDS: EPOETIN ALFA 4,000 UNITS/ML VIAL IV PRN (13:49)
[2017-01-29] MEDS: ALBUMIN HUMAN 25% 25 GM/100 ML BAGP IV PRN ×2 (13:49→13:50)
[2017-01-29] MEDS: GENTAMICIN SULFATE (DIALYSIS USE ONLY) 20 MG/2 ML VIAL IV PRN (13:49)
[2017-01-29] MEDS: SODIUM CHLOR 0.9% 1000 ML INJ 1,000 ML IV PRN (13:49)
[2017-01-29] MEDS: PROPOFOL 1000 MG/100 ML IV SCH ×2 (14:56→20:20)
[2017-01-29] MEDS ORDERED: VANCOMYCIN 1,500 MG/NS 500 ML IV ONE ×2 (17:00)
[2017-01-29] MEDS: PIPERACIL-TAZO 3.375 GM PREMIX 50 ML IV SCH ×2 (17:25→19:38)
[2017-01-30] VITALS (25 sets, daily range): BP systolic 79–152; BP diastolic 54–78; PULSE 75–118; RESP 18–19; TEMP 98.4–99.6; O2SAT 89–96
[2017-01-30] MEDS: PROPOFOL 1000 MG/100 ML IV SCH ×5 (01:43→20:14)
[2017-01-30] MEDS: RESP: IPRATROPIUM 0.5 MG/2.5 ML NEB NEB SCH ×4 (02:49→19:59)
[2017-01-30] MEDS: CHLORHEXIDINE GLUCONATE 2 % 1 PACK (2 CLOTHS) TOP SCH (04:00)
[2017-01-30] MEDS: METOCLOPRAMIDE HCL 10 MG/2 ML VIAL IV PUSH SCH ×3 (05:24→22:00)
[2017-01-30] MEDS: PIPERACIL-TAZO 3.375 GM PREMIX 50 ML IV SCH ×3 (05:24→20:12)
[2017-01-30] MEDS: INSULIN ASPART SUPPLEMENTAL SCALE SQ SCH ×3 (05:25→17:55)
[2017-01-30] MEDS: ARTIFICIAL TEARS OPTH SOLN 15 ML BTL EACH EYE SCH ×3 (05:25→20:13)
[2017-01-30 05:27] LABS: BASOPHIL % 0.3 % (0.0-2.0); EOSINOPHIL % 0.2 % (0.0-4.0); LYMPH % 2.4 % (9.0-44.0); LYMPHOCYTE # 0.1 TH/MM3 (1.0-4.8); MEAN CELL VOLUME 90.4 FL (80.0-100.0); MEAN CORPUSCULAR HEMOGLOBIN 30.5 PG (27.0-34.0); MEAN CORPUSCULAR HGB CONC 33.8 % (32.0-36.0); MONO % 4.2 % (0.0-8.0); NEUT % 92.9 % (16.0-70.0); PLATELET COUNT 47 TH/MM3 (150-450); RED BLOOD COUNT 2.24 MIL/MM3 (4.50-5.90); RED CELL DISTRIBUTION WIDTH 17.7 % (11.6-17.2); WHITE BLOOD COUNT 4.3 TH/MM3 (4.0-11.0)
[2017-01-30 05:37] LABS: HEMO FLAGS AUTO DIFF
[2017-01-30 05:38] LABS: HEMATOCRIT 20.3 % (39.0-51.0)
[2017-01-30 05:44] LABS: BICARBONATE 26.9 MEQ/L (21.0-32.0); POTASSIUM 3.9 MEQ/L (3.5-5.1)
[2017-01-30 05:56] LABS: CALCIUM-PROTEIN CORRECTED 8.6 MG/DL (8.5-10.1)
[2017-01-30 06:55] LABS: PLATELET ESTIMATE SMEAR LOW (NORMAL); PLATELET MORPHOLOGY ENLARGED (NORMAL); SCAN/DIFF AUTO DIFF CONFIRMED
--- NOTE | 2017-01-30 07:16 | HHI.CCPN ---
Subjective Remarks/Hospital Course This is a 71-year-old gentleman that presented to [facility] secondary to dyspnea and atrial fibrillation with RVR. The patient has a medical history significant for obesity and hypertension. During his hospitalization at [facility], the patient underwent an echocardiogram which showed severe systolic dysfunction with an ejection fraction of 1015 % the patient then underwent a cardiac catheterization showing significance with left circumflex 90%. The patient underwent multiple attempts of unsuccessful synchronized cardioversion. The patient also underwent medical management with beta blockers, and calcium channel blockers that were also unsuccessful. The patient was transferred to [facility] for cardiac ablation with Dr. Jimenez. The patient was scheduled for cardiac ablation, the procedure was canceled. The patient required emergent intubation and required ventilator management a VLADIMIR was performed showing a clot in the left atrial appendage. The patient was placed on IV Cardizem, and an amiodarone infusion. Critical Care medicine was consulted for management. 01/06: Tmax 97.4. The patient remained on elevated vent settings with FiO2 of 1.0 overnight, PEEP requirements were increased to 8, to maintain a PaO2 of greater than [address] scan of the chest was obtained which noted bilateral effusions small, basilar consolidations right worse than the left, and a loculated area representing a possible pneumonia process, empyema, as well as aspiration or just loculated fluid as well as a small pericardial effusion. The patient continues on Cardizem and amiodarone infusions with a heart rate overnight 80s -115. The patient's vasopressor requirements of phenylephrine diminished to 20 mcgs. 01/07: Tmax 99.2. Yesterday the central line was placed for vasoactive medications and CVP monitoring, small hematoma noted near the right IJ area soft no compression of major vessels, with resolution of bleeding in that area. Phenylephrine was discontinued yesterday. The patient heart rate remains today [id number]. Cardizem infusion has been discontinued in the setting of EF of 10-15%. Esmolol infusion to be initiated this a.m.. Coumadin was initiated last night now placed on hold due to patient bleeding from nasopharynx and oropharynx. INR currently 1.2. Plan for CT thorax tomorrow, with possible IR intervention versus CVT consultation for possible empyema the patient will remain on heparin infusion, and transition onto Coumadin after any potential procedures to be initiated. Chest x-ray slightly improved FiO2 decreasing now 70%. Sedation vacation yesterday revealed GCS 11 T, patient alert responsive following commands. With initiation of antibiotics, leukocytosis resolved. ID consulted Dr. Gage. Blood cultures are pending. 01/08: Patient's heart rate 110-[address] scan of the chest imaging revealed fluid. Plan for thoracentesis and and studies of pleural fluid , this afternoon. The patient remains on amiodarone and heparin infusions, per cardiology. Heparin held, for thoracentesis this afternoon, and then will be resumed. The patient was maintained on CPAP trial for approximately one hour yesterday. During sedation vacation patient was alert following commands recognizing family. Plan to resume CPAP trials this afternoon post thoracentesis. 01/09: The patient underwent CT-guided thoracentesis yesterday , on the right side noted 400 cc of fluid was removed , with specimens ordered to be sent for evaluation .This morning chest x-ray performed showing almost complete opacification of the left lung. FiO2 requirements increase patient on FiO2 of 80%, O2 sat 94%. Left chest ultrasound obtained revealing no fluid. Consent obtained BAL performed, revealing emanating from the nearest previously ( patient was noted to have epistaxis with initiation of heparin on 01/06). Blood clots noted in left lung upon visualization with bronchoscopy, saline lavage applied, minimal blood clots removed. The patient was initiated on Mucomyst 10% , and pulmonology was consulted. Dr. Tasia Lama following. The patient shows no signs or evidence of bleeding actively, plan to consult ENT if signs of active bleeding become evident. Hemoglobin remains stable.The patient converted into sinus rhythm is today afternoon. Cardiology management of medications, IV amiodarone discontinued this afternoon. 01/10: Tmax 99.0. Chest x-ray shows slight improvement of left lung today. Plan for repeat bronchoscopy per Dr. Burch this a.m, and the patient continues on Mucomyst. The patient's cardiac rhythm reverted to A. fib last evening, amiodarone IV infusion reinstituted per Dr. Jimenez. 01/11: TMax 100.0. Much improved chest x-ray this morning. The patient continues in A. fib with a rate of 120, he continues on amiodarone, heparin infusion per cardiology. No evidence of active bleeding. 5/12 Patient Remains sedated with Diprivan, intubated. T:99.9. On Neosyn 15 mics , heparin and Amio drips. In Afib with RRV. Patient s/p repeat bronch with BAL yesterday by Dr. Burch and ETT replacement by Dr. Sanchez. On PC/AC with PEEP:14 , FIO2 100%. 01/13: TMax 100.2. Last night the nurse reported that the patient had a small amount of epistaxis, and blood in the oropharynx noted. The area continued to bleed during the night. ENT has been consulted. Heparin has been placed on hold , ASA has been discontinued in the setting of acute renal failure. The patient continues on amiodarone infusion , heart rate 120's. Neosynephrine has been discontinued, and Levophed instituted. Creatinine noted to be 4.5. As per report , states patient does not want dialysis. The patient continues on elevated PEEP of 14. 5/14: Heparin was discontinued yesterday in the setting of continued bleeding in the nasal/ oropharyngeal region. ENT was consulted and nasal packing was applied. During the night the patient still had small noted amount of bleeding from the oropharyngeal area plan today for oropharyngeal packing. Hgb 9, will transfuse .The patient was placed on norepinephrine for currently at 1-2 mcgs per minute. PEEP has been decreased to 12, with adequate oxygenation a PaO2 of 71. 5/15: Tmax 99.0. The patient continues to be anemic and thrombocytopenic, contributory factors being uremia. The patient's /family decided to pursue hemodialysis at this point. The patient received 1 unit of packed red blood cells yesterday. The patient was initiated on dialysis yesterday afternoon, with approximately 3 L removed. Nasal gauze packing removed and placement of nasal balloons by ENT yesterday. Oral gauze packing to be removed today. The patient received 2 separate doses of digoxin, A. fib heart rate ranging 80- < 120. The patient continues to have high ventilatory requirements, FiO2 was increased throughout the night to currently 80%, to maintain O2 sat greater than 92%. 01/16: FiO2 at 85%. Large clots removed from oropharynx overnight. Transfused 2 units PRBCs yesterday. No bowel movement. Tolerating tube feeds at 40 cc now with Nepro 01/17: Maximum 100.6. CURRENT TEMPERATURE 98.1. Central line pulled out yesterday. Flolan initiated yesterday and FiO2 down to 65%. Tolerating tube feeds. No bowel movement. Arousable weakly follow commands yesterday 01/18: Tmax 99.8. Currently afebrile. Initially, hemoptysis with desaturation requiring bronchoscopy. See bronchoscopy note. Roto-Rest bed ordered. FiO2 from 100-70% currently. On Nimbex drip. No BM. Tolerating tube feeds. 01/19: Afebrile. FiO2 down to 40%. We will attempt a wean Flolan today. On Nimbex drip. Positive BM yesterday. Tolerating tube feeds. 01/20: FiO2 back to 100%. Flolan "fell off "overnight. Ventilator adjusted back to 100%. Flolan reinstituted. Chest x-ray and ABG pending. Tolerating tube feeds. Positive BM. Afebrile. Subjective: 01/21: Intolerant of tube feeding. KUB pending. Afebrile. Bleeding from bilateral nares and Alanis overnight. Argatroban has been held. Positive BM. 01/22 Patient is sedated with Fentanyl , versed in addition he is on Nimbex. Receiving HD. TF on hold for high residuals. 01/23 Patient is on Roto prone bed sedated and intubated. s/p HD yesterday with removal 3L. On Nimbex, afebrile. 01/24 Patient remains sedated with Versed, Fentanyl and remains on Nimbex. On PC/ AC with PEEP: 10, FIO2 down 40%. For HD today. Afebrile. 01/25 Patient remains sedated and intubated . On PC/AC with PEEP: 10 and FIO2 50% . s/p HD yesterday with removal 4.5L. Afebrile. 01/26 Patient is sedated with Fentanyl off versed and Nimbex. s/p bronch yesterday by Dr. Burch. On PRVC/AC with PEEP: 10 and FIO2 down to 50% s/p HD yesterday with removal 1.5. For another HD session today. 01/27 Patient is sedated with Fentanyl and intubated, s/p HD yesterday with removal 4L. Afebrile. On PRVC/AC mode with PEEP; 10 and FIO2 45% 01/28 Patient remains sedated with Fentanyl and intubated. s/p HD yesterday with removal 3L. Placed on Amio drip yesterday for Afib with RVR, 01/29 No acute events overnight. Sedated with Fentanyl and intubated. Afebrile. On PRVC/AC with PEEP: 10 and FIO2 70% decreased to 60% 01/30 No events overnight. Sedated with Diprivan on Amio drip and Cardizem 5mg/ hr. s/p HD yesterday with removal 2L. Spiked fever yesterday with T 101.7 .On PRVC/AC with PEEP: 10, FIO2 65% Objective Vital Signs Date Time Temp Pulse Resp B/P Pulse Ox O2 Delivery O2 Flow Rate FiO2 01/30/17 06:00 107 01/30/17 04:00 99.0 18 105/72 95 122/61 01/30/17 04:00 65 Intake and Output 01/29/17 01/29/17 01/30/17 08:00 16:00 00:00 Intake Total 501 ml 739 ml 556 ml Output Total 100 ml 2250 ml 50 ml Balance 401 ml -1511 ml 506 ml Result Diagram: 01/30/17 0515 01/30/17 0515 Other Results Laboratory Tests Test 01/30/17 01/30/17 05:15 06:15 White Blood Count 4.3 TH/MM3 Red Blood Count 2.24 MIL/MM3 Hemoglobin 6.8 GM/DL Hematocrit 20.3 % Mean Corpuscular Volume 90.4 FL Mean Corpuscular Hemoglobin 30.5 PG Mean Corpuscular Hemoglobin 33.8 % Concent Red Cell Distribution Width 17.7 % Platelet Count 47 TH/MM3 Mean Platelet Volume 10.2 FL Neutrophils (%) (Auto) 92.9 % Lymphocytes (%) (Auto) 2.4 % Monocytes (%) (Auto) 4.2 % Eosinophils (%) (Auto) 0.2 % Basophils (%) (Auto) 0.3 % Neutrophils # (Auto) 4.0 TH/MM3 Lymphocytes # (Auto) 0.1 TH/MM3 Monocytes # (Auto) 0.2 TH/MM3 Eosinophils # (Auto) 0.0 TH/MM3 Basophils # (Auto) 0.0 TH/MM3 CBC Comment AUTO DIFF Differential Comment AUTO DIFF CONFIRMED Platelet Estimate LOW Platelet Morphology Comment ENLARGED Sodium Level 139 MEQ/L Potassium Level 3.9 MEQ/L Chloride Level 99 MEQ/L Carbon Dioxide Level 26.9 MEQ/L Anion Gap 13 MEQ/L Blood Urea Nitrogen 83 MG/DL Creatinine 3.73 MG/DL Estimat Glomerular Filtration 16 ML/MIN Rate Random Glucose 145 MG/DL Calcium Level 7.4 MG/DL Protein Corrected Calcium 8.6 MG/DL Total Protein 5.0 GM/DL Blood Type O POSITIVE Antibody Screen NEGATIVE Crossmatch Leukocyte-Reduced Red Blood Cells Blood Bank Comment Imaging Last Impressions Chest X-Ray 01/29/17 0000 Signed Impressions: Service Date/Time: Sunday, January 29, 2017 07:37 - CONCLUSION: 1. Moderate- sized bibasilar opacities likely representing pleural effusions with associated volume loss and or consolidation. These appear slightly larger than on yesterday's examination. 2. New or increased consolidation in the left upper lung zone. 3. Stable mild enlargement of the cardiac silhouette. Daniel Reyes MD Abdomen X-Ray 01/21/17 0000 Signed Impressions: Service Date/Time: Saturday, January 21, 2017 08:41 - CONCLUSION: Nondiagnostic study. Gurvinder Collier MD Renal Ultrasound 01/09/17 0000 Signed Impressions: Service Date/Time: Monday, January 09, 2017 13:56 - CONCLUSION: 1. Right kidney is sonographically normal. 2. Benign-appearing 2.4 x 1.5 cm cortical cyst in the midpole of the left kidney. 3. Subcentimeter echogenic, non-shadowing foci in the midpole of the left kidney would be unusual for stones and may represent ectopic hilar fat. No hydronephrosis. 4. Urinary bladder is decompressed with a Alanis catheter. Douglas Ward MD Chest Ultrasound 01/09/17 0000 Signed Impressions: Service Date/Time: Monday, January 09, 2017 08:18 - CONCLUSION: No left-sided pleural effusion. The abnormality in the left chest on chest radiograph is likely related to mucous plugging. When patient had a CT scan yesterday the left lung was well aerated. Edgardo Mayorga MD Chest CT 01/08/17 0600 Signed Impressions: Service Date/Time: Sunday, January 08, 2017 08:46 - CONCLUSION: Massive cardiomegaly with panchamber enlargement extensive coronary calcifications. Stable trace pericardial effusion. Increasing bibasilar consolidative changes with minimal bilateral pleural effusions.. Rhys Fritz MD FACR Thoracentesis 01/08/17 0000 Signed Impressions: Service Date/Time: Sunday, January 08, 2017 16:08 - CONCLUSION: Uncomplicated CT-guided thoracentesis on the right. The left sided thoracentesis was not performed as there was no significant left pleural fluid. The abnormality on most recent chest x-ray was secondary to mucous plugging and left sided atelectasis. Edgardo Mayorga MD Objective Remarks GENERAL: 71-year-old male, critically ill-appearing obese male resting in rotarest bed SKIN: Warm and dry. No rash HEAD: Atraumatic. Normocephalic. EYES: Pupils equal and round, 3mm and reactive. No scleral icterus. No injection or drainage. ENT: Bilateral Rhino Rocket newly placed . Positive blood from mouth with suctioning NECK: Trachea midline. Unable to assess JVD secondary to body habitus. Large right-sided neck hematoma without midline shift. Evolving ecchymoses. Left subclavian central line is clean dry and intact CARDIOVASCULAR: Tachycardia, IR. S1, S2 no S4 without murmur RESPIRATORY: Diminished breath sounds throughout. Few crackles in bases bilaterally. Breath sounds equal bilaterally. GASTROINTESTINAL: Abdomen soft, obese non-tender, nondistended. I Magana bowel sounds MUSCULOSKELETAL: Extremities with 1+ peripheral edema. No obvious deformities. Posterior tibialis is palpable bilaterally. Right femoral Vas-Cath is clean dry and intact NEUROLOGICAL: Intubated and sedated. Date of Insertion: January 05, 2017 Date of Insertion: January 17, 2017 Line: Central Venous Catheter Side: Left Location: Subclavian, Jugular A/P Assessment and Plan Neuro/Psych: Epistaxis Continue with Diprivan infusion. Daily sedation vacation Patient doesn't follow commands off sedation. Will check EEG and get CT brain when stable. neuro eval 01/12 New onset epistaxis, heparin discontinued Epistaxis-ENT consulted-nasal balloons in situ maintain balloons until 01/20 per ENT recommendation. Removed 01/20 but resumed bleeding so replaced yesterday - 01/21 ENT following - Dr. Byrd. Respiratory: Acute hypoxic respiratory failure Left lung consolidation 2/2 previous event of epistaxis, clotted blood left lung -resolved SONU Probable aspiration Possible multilobar [id number] Bilateral pleural effusions Continue with vent support keep sat >92% On PRVC/AC RR 18, TV 600, IT:1.3, PEEP: 10, FIO2 65%. Decrease FIO2 as dennis. Will need perc trach when stable and PLT count recovers. Currently on Xopenex and Atrovent aerosols every 6 hours ICU vent bundle. Mucomyst nebs Q6 Pulmonology following- Dr. Burch Solu-Medrol 20 mg IV BID, off Flolan 01/08-right CT-guided thoracentesis-400 cc removed, sent for cytology and cultures s/p bronch 01.11 by- Dr. Burch for blood clots left lung Status post bronch 01/17 by adhesion tester - bloody mucous plug at saturnino/mainstem section cleared. No obvious source of bleeding. s/p bronch 01/[address] Burch. -minimal secretions. CV: A. fib with RVR Left atrial appendage thrombus Cardiomyopathy Acute Systolic CHF Hypertension Dyslipidemia Continue with Amio drip, Coreg 6.25mg BID. Monitor HR and BP keep MAP>65mmHg On Cardizem drip 5mg/hr for rate control. 01/13- Heparin, ASA discontinued due to epistaxis 01/05 VLADIMIR( [employer])-left atrial thrombus EF 15-20%. Systolic function reduced. Diffuse hyperkinesis. 12/26 [facility] severe systolic dysfunction EF 1015%, mitral valve mild to moderate regurg, LAE, tricuspid Valve-mild to moderate regurg, small pericardial effusion, 12/19 cardiac cath left circumflex 90% occlusion Management per Cardiology -Dr. Jimenez Patient is at high risk of bleeding with anticoagulation Renal: Acute on chronic kidney disease stage IV Nephrology following-Dr. Hahn Monitor renal function, I/O's, avoid nephrotoxins. Vascath placement Hemodialysis initiated 01/14. s/p HD 01/29 with removal 2L Cr 3.73 today from 4.49 FEN/GI: Morbid obesity On Tube feeds- Nepro @40ml/hr KUB abdomen 01/21: Non diagnostic study Prevacid for GI prophylaxis Bowel Colace/Senokot twice a day. On Reglan 5 every 8 and erythromycin 200 every 8 for bowel motility/prokinetic PhosLo 667 3 times a day Heme: Leukocytosis Normocytic anemia Thrombocytopenia Monitor CBC.Transfuse 2units PRBC, check coags/Fibrinogen level. Transfused 3 units PRBCs on admission Weakly positive HIT panel-CLIFFORD is negative. Due to gross hematuria and epistaxis all anticoagulants on hold currently. Hematology is following ID: Likely aspiration pneumonia 01/06 urine, sputum, blood cultures-NGTD 01/06-Legionella urine antigen negative 01/09 - bronchoscopy - yeast/ID to follow 01/12 - blood cultures 2 - no growth 01/20 - blood cultures 2 - staph Epi 09/06 bottles- likely contaminant Continue with abx ( Zosyn) Given Vanco x1 dose yesterday -Dr. Gage following, -Monitor for signs of infections ( Fever, WBC) -Follow up on BC from 01/29, check sputum cx, UA with cx if indicated Endocrine: Close monitoring per ICU protocol-medium dose regimen -- SSI Accu-Cheks every 6 hours for glycemic control Prophylaxis: GI Prophylaxis Prevacid 30 mg at night DVT Prophylaxis -- SCDs, Lines: Peripheral IV's. Right femoral HD catheter 01/19, Left subclavian CVL 01/17 Patient developed hematoma on right side of his neck from previous attempt of central line placement. Dispo: is Olena Muhammad [phone] Discussed with patient's today and updated her on his condition. Poor prognosis given resp failure, severe cardiomyopathy, renal failure on HD, encephalopathy, multiorgan injury. Critical Care: The total critical care time was 35 minutes. Time to perform other separately billable procedures was not included in the critical care time. Ari Betancourt MD January 30, 2017 07:16
[2017-01-30 07:40] LABS: AUTOMATED NEUTROPHIL # 3.7 TH/MM3 (1.8-7.7); BASOPHIL % 0.4 % (0.0-2.0); EOSINOPHIL % 0.5 % (0.0-4.0); LYMPH % 2.9 % (9.0-44.0); LYMPHOCYTE # 0.1 TH/MM3 (1.0-4.8); MEAN CELL VOLUME 91.1 FL (80.0-100.0); MEAN CORPUSCULAR HEMOGLOBIN 30.7 PG (27.0-34.0); MEAN CORPUSCULAR HGB CONC 33.6 % (32.0-36.0); MONO % 3.6 % (0.0-8.0); NEUT % 92.6 % (16.0-70.0); PLATELET COUNT 48 TH/MM3 (150-450); RED BLOOD COUNT 2.25 MIL/MM3 (4.50-5.90); RED CELL DISTRIBUTION WIDTH 17.9 % (11.6-17.2)
[2017-01-30 07:45] LABS: HEMO FLAGS AUTO DIFF
[2017-01-30 07:48] LABS: HEMATOCRIT 20.5 % (39.0-51.0)
[2017-01-30] MEDS: CHLORHEXIDINE 0.12% (ORAL KIT) 15 ML CUP MT SCH ×2 (08:18→20:13)
[2017-01-30] MEDS: LANSOPRAZOLE SOLUTAB 30 MG TAB NG SCH (08:19)
[2017-01-30] MEDS: SODIUM CHLORIDE 0.9% FLUSH 10 ML FLUSH IVF SCH (08:19)
[2017-01-30] MEDS: DOCUSATE SODIUM 100 MG/10 ML UDC PO SCH ×2 (08:19→20:12)
[2017-01-30] MEDS: methylPREDNISolone SOD SUCC 40 MG/1 ML VIAL IV PUSH SCH ×2 (08:19→20:13)
[2017-01-30] MEDS: SODIUM CHLORIDE 0.9% FLUSH 10 ML FLUSH IV FLUSH SCH ×2 (08:19→20:13)
[2017-01-30] MEDS: SENNOSIDES SYRUP 8.8 MG/5 ML CUP PO SCH ×2 (08:19→20:12)
[2017-01-30] MEDS: CALCIUM ACETATE 667 MG CAP PO SCH ×3 (08:19→17:56)
[2017-01-30] MEDS: CARVEDILOL 6.25 MG TAB PO SCH ×2 (08:19→20:12)
[2017-01-30] MEDS: DILTIAZEM INJ 125 MG in SODIUM CHLORIDE 0.9% INJ 100 ML IV SCH ×2 (08:19→20:14)
[2017-01-30 08:21] LABS: BANDS 20 % (0-6); EOSINOPHILS 1 % (0-4); NEUTROPHIL # MANUAL DIFF 3.7 TH/MM3 (1.8-7.7); POLYS (SEG NEUTROPHILS) 73 % (16-70); WBC DIFF SAMPLE 100
[2017-01-30 08:22] LABS: PLATELET ESTIMATE SMEAR LOW (NORMAL)
[2017-01-30 08:24] LABS: PLATELET MORPHOLOGY ENLARGED (NORMAL)
[2017-01-30 08:25] LABS: SCAN/DIFF FINAL DIFF MANUAL
[2017-01-30 08:59] LABS: INTERNATIONAL NORMALIZED RATIO 1.3 RATIO; PROTHROMBIN TIME - PATIENT 14.5 SEC (9.8-11.6)
[2017-01-30 09:19] LABS: BLOOD, URINE MOD (NEG); GLUCOSE,URINE NEG (NEG); KETONE, URINE NEG (NEG); MUCUS URINE FEW /lpf (OCC); NITRITE,URINE NEG (NEG); PH, URINE 5.5 (5.0-8.5); SQUAMOUS EPITHELIAL CELL URINE 1 /hpf (0-5); TRANSITIONAL EPI CELLS, URINE 1 /hpf; URINE COLOR YELLOW (YELLW/STRAW)
[2017-01-30 09:23] LABS: COMMENT (UR) CATH-CULTURE IND; CULTURE IF INDICATED CATH CULTURE IND
--- NOTE | 2017-01-30 10:16 | PD.ONC.PN ---
Subjective Subjective Remarks Afebrile overnight. Patient intubated, off sedation. Just finished EEG. Withdrawing from pain, but not otherwise responsive off sedation. Hgb dropped overnight. Objective Data Date Time Temp Pulse Resp B/P Pulse Ox O2 Delivery O2 Flow Rate FiO2 01/30/17 10:00 84 18 118/59 92 126/58 01/30/17 10:00 84 01/30/17 09:00 95 18 152/63 90 144/68 01/30/17 08:00 98.4 86 18 103/59 92 110/54 01/30/17 08:00 86 01/30/17 08:00 86 103/59 110/54 01/30/17 08:00 65 01/30/17 07:43 93 65 01/30/17 06:00 107 01/30/17 04:00 99.0 86 18 105/72 95 122/61 01/30/17 04:00 65 01/30/17 04:00 86 105/72 122/61 01/30/17 04:00 86 01/30/17 02:51 96 65 01/30/17 02:00 99 01/30/17 00:00 99.6 106 19 111/61 95 121/63 01/30/17 00:00 65 01/30/17 00:00 106 01/30/17 00:00 106 111/61 121/63 01/29/17 23:29 95 65 01/29/17 22:00 115 01/29/17 20:02 93 65 01/29/17 20:00 65 01/29/17 20:00 144 01/29/17 20:00 144 132/65 140/63 01/29/17 20:00 99.5 144 19 132/65 93 140/63 01/29/17 18:00 141 01/29/17 16:51 87 19 87/50 90 90/46 01/29/17 16:00 89 01/29/17 16:00 99.6 89 18 98/55 91 114/49 01/29/17 16:00 60 01/29/17 16:00 89 98/55 114/49 01/29/17 15:38 99 75 01/29/17 15:00 126 15 110/57 95 130/55 01/29/17 14:00 127 23 102/56 92 114/52 01/29/17 14:00 127 01/29/17 13:00 131 89/67 89 139/72 01/29/17 12:17 95 75 01/29/17 12:00 75 01/29/17 12:00 114 107/65 148/64 01/29/17 12:00 101.7 114 20 107/65 92 148/64 01/29/17 12:00 114 01/29/17 11:45 134 18 160/70 90 01/29/17 11:30 137 18 166/73 89 01/29/17 11:15 131 18 155/66 84 01/29/17 11:00 133 18 130/61 92 147/61 01/29/17 10:45 123 18 138/58 92 01/29/17 10:30 126 18 152/62 93 01/29/17 10:15 136 18 149/63 93 01/30/17 01/30/17 01/30/17 07:00 15:00 23:00 Intake Total 724 ml Output Total 50 ml Balance 674 ml Result Diagram: 01/30/17 0650 01/30/17 0515 Laboratory Results Laboratory Tests Test 01/30/17 01/30/17 01/30/17 01/30/17 05:15 06:15 06:50 07:50 White Blood Count 4.3 TH/MM3 4.0 TH/MM3 Red Blood Count 2.24 MIL/MM3 2.25 MIL/MM3 Hemoglobin 6.8 GM/DL 6.9 GM/DL Hematocrit 20.3 % 20.5 % Mean Corpuscular Volume 90.4 FL 91.1 FL Mean Corpuscular Hemoglobin 30.5 PG 30.7 PG Mean Corpuscular Hemoglobin 33.8 % 33.6 % Concent Red Cell Distribution Width 17.7 % 17.9 % Platelet Count 47 TH/MM3 48 TH/MM3 Mean Platelet Volume 10.2 FL 11.5 FL Neutrophils (%) (Auto) 92.9 % 92.6 % Lymphocytes (%) (Auto) 2.4 % 2.9 % Monocytes (%) (Auto) 4.2 % 3.6 % Eosinophils (%) (Auto) 0.2 % 0.5 % Basophils (%) (Auto) 0.3 % 0.4 % Neutrophils # (Auto) 4.0 TH/MM3 3.7 TH/MM3 Lymphocytes # (Auto) 0.1 TH/MM3 0.1 TH/MM3 Monocytes # (Auto) 0.2 TH/MM3 0.1 TH/MM3 Eosinophils # (Auto) 0.0 TH/MM3 0.0 TH/MM3 Basophils # (Auto) 0.0 TH/MM3 0.0 TH/MM3 CBC Comment AUTO DIFF AUTO DIFF Differential Comment AUTO DIFF FINAL DIFF CONFIRMED MANUAL Platelet Estimate LOW LOW Platelet Morphology Comment ENLARGED ENLARGED Sodium Level 139 MEQ/L Potassium Level 3.9 MEQ/L Chloride Level 99 MEQ/L Carbon Dioxide Level 26.9 MEQ/L Anion Gap 13 MEQ/L Blood Urea Nitrogen 83 MG/DL Creatinine 3.73 MG/DL Estimat Glomerular Filtration 16 ML/MIN Rate Random Glucose 145 MG/DL Calcium Level 7.4 MG/DL Protein Corrected Calcium 8.6 MG/DL Total Protein 5.0 GM/DL Blood Type O POSITIVE Antibody Screen NEGATIVE Crossmatch Leukocyte-Reduced Red Blood Cells Blood Bank Comment Differential Total Cells 100 Counted Neutrophils % (Manual) 73 % Band Neutrophils % 20 % Lymphocytes % 2 % Monocytes % 4 % Eosinophils % 1 % Neutrophils # (Manual) 3.7 TH/MM3 Basophilic Stippling FAINT Urine Color YELLOW Urine Turbidity CLOUDY Urine pH 5.5 Urine Specific [place] 1.021 Urine Protein 100 mg/dL Urine Glucose (UA) NEG mg/dL Urine Ketones NEG mg/dL Urine Occult Blood MOD Urine Nitrite NEG Urine Bilirubin NEG Urine Urobilinogen LESS THAN 2.0 MG/DL Urine Leukocyte Esterase TRACE Urine RBC 13 /hpf Urine WBC 17 /hpf Urine Squamous Epithelial 1 /hpf Cells Urine Transitional Epithelial 1 /hpf Cells Urine Amorphous Sediment OCC Urine Mucus FEW /lpf Microscopic Urinalysis Comment CATH-CULTURE IND Test 01/30/17 08:10 Prothrombin Time 14.5 SEC Prothromb Time International 1.3 RATIO Ratio Fibrinogen 392 mg/dL Culture Results Microbiology Date/Time Procedure Status Source Growth 01/29/17 12:39 Aerobic Blood Culture Received Blood Peripheral Pending 01/29/17 12:39 Anaerobic Blood Culture Received Blood Peripheral Pending 01/29/17 14:00 Aerobic Blood Culture Received Blood Peripheral Pending 01/29/17 14:00 Anaerobic Blood Culture Received Blood Peripheral Pending 01/30/17 07:50 Gram Stain Received Sputum Endotracheal Pending 01/30/17 07:50 Sputum Culture Received Sputum Endotracheal Pending 01/30/17 07:50 Urine Culture Received Urine Catheterized Urine Pending Administered Medications Medications (Trade) Dose Ordered Sig/Claire Route PRN Reason Start Time Stop Time Status Last Admin Dose Admin Propofol (Diprivan 1000 Mg/100ml Inj) 100 ml @ 0 mls/hr TITRATE IV 01/05/17 21:45 01/30/17 05:24 Docusate Sodium (Colace Liq) 100 mg Q12HR PO 01/06/17 21:00 01/30/17 08:19 Sodium Chloride (NS Flush) 2 ml UNSCH PRN IV FLUSH FLUSH AFTER USING IV ACCESS 01/06/17 13:15 01/29/17 09:33 Sodium Chloride (NS Flush) 2 ml BID IV FLUSH 01/06/17 21:00 01/30/17 08:19 Chlorhexidine Gluconate (Chlorhexidine 2% Cloth) 3 pack Taper DAILY@04 TOP 01/07/17 04:00 01/03/18 03:59 01/30/17 04:00 Dextrose (D50w (Vial) Inj) 25 ml UNSCH PRN IV PUSH HYPOGLYCEMIA-SEE COMMENTS 01/09/17 07:15 01/21/17 19:15 Insulin Aspart (NovoLOG SUPPLEMENTAL SCALE) 1 Q6HR SQ 01/10/17 06:00 01/29/17 23:00 Bisacodyl (Dulcolax Supp) 10 mg DAILY PRN RECTAL CONSTIPATION 01/10/17 09:15 Hold 01/10/17 09:56 Sennosides (Senna Liq) 8.8 mg BID PO 01/16/17 09:00 01/30/17 08:19 Glycerin (Glycerin Adult Supp) 2 gm BID PRN RECTAL CONSTIPATION 01/17/17 06:45 01/17/17 14:30 Amiodarone HCl (Cordarone) 200 mg Q12HR PO 01/17/17 09:00 Hold 01/27/17 08:27 Sodium Chloride DAILY IVF 01/17/17 12:30 01/30/17 08:19 Cisatracurium Besylate/Sodium Chloride (Nimbex Inj/NS 250 ml Inj) 250 ml @ 0 mls/hr TITRATE IV 01/17/17 14:30 01/25/17 05:48 Artificial Tears (Tears Naturale Opth Soln) 1 drop Q8HR EACH EYE 01/17/17 22:00 01/30/17 05:25 Chlorhexidine Gluconate 15 ml 15 ml BID@08,20 MT 01/17/17 20:00 01/30/17 08:18 Midazolam HCl 100 ml @ 0 mls/hr TITRATE IV 01/17/17 16:45 01/25/17 00:18 Fentanyl Citrate (fentaNYL DRIP) 250 ml @ 0 mls/hr TITRATE IV 01/17/17 16:45 01/29/17 05:32 Metoclopramide HCl (Reglan Inj) 5 mg Q8HR IV PUSH 01/18/17 06:45 01/30/17 05:24 Calcium Acetate (Phoslo) 667 mg TID PO 01/19/17 09:00 01/30/17 08:19 Lansoprazole 30 mg 30 mg DAILY NG 01/19/17 09:00 01/30/17 08:19 Sodium Chloride 1,000 ml @ 0 mls/hr Q0M PRN IV For Prime & Rinse Back 01/19/17 08:06 01/29/17 13:49 Sodium Chloride (NS 1000 ml Inj) 1,000 ml @ 0 mls/hr Q0M PRN IV WITH DIALYSIS 01/19/17 08:06 01/27/17 09:24 Mannitol (Mannitol Inj) 12.5 gm UNSCH PRN IV WITH DIALYSIS 01/19/17 08:15 01/26/17 15:26 Albumin Human (Albumin 25% Inj) 25 gm UNSCH PRN IV WITH DIALYSIS 01/19/17 08:15 01/29/17 13:50 Sodium Chloride (NS Flush) 5 ml UNSCH PRN IV FLUSH WITH DIALYSIS 01/19/17 08:15 01/27/17 09:22 Gentamicin Sulfate (Gentamicin (Dialysis) Inj) 20 mg UNSCH PRN IV WITH DIALYSIS 01/19/17 08:15 01/29/17 13:49 Acetaminophen (Tylenol) 650 mg UNSCH PRN PO for headach, pain, temp > 101F 01/19/17 08:15 01/29/17 12:07 Epoetin Rizwan 4000 units 4,000 units UNSCH PRN IV WITH DIALYSIS 01/19/17 08:15 01/29/17 13:49 Norepinephrine Bitartrate/Sodium Chloride (Levophed Inj/NS 250 ml Inj) 250 ml @ 0 mls/hr TITRATE IV 01/20/17 08:00 01/20/17 10:21 Methylprednisolone Sodium Succinate (SoluMEDROL INJ) 20 mg BID IV PUSH 01/24/17 21:00 01/30/17 08:19 Carvedilol (Coreg) 6.25 mg Q12HR PO 01/24/17 21:00 01/30/17 08:19 Labetalol HCl (Trandate Inj) 10 mg Q1HR PRN IV PUSH SBP>160, DBP>90, HR>65 01/24/17 19:15 01/24/17 19:28 Hydralazine HCl 10 mg 10 mg Q1HR PRN IV PUSH SBP>160, DBP>90 01/24/17 19:15 01/29/17 09:33 Argatroban 250 mg/ Sodium Chloride 250 ml @ 0 mls/hr TITRATE IV 01/26/17 19:30 01/29/17 12:08 Amiodarone HCl 450 mg/Dextrose 250 ml @ 0 mls/hr CONTINUOUS IV 01/27/17 14:45 01/29/17 17:26 Diltiazem HCl/ Sodium Chloride (Cardizem Inj/NS Inj) 125 ml @ 0 mls/hr TITRATE IV 01/29/17 08:45 01/30/17 08:19 Hyoscyamine Sulfate 0.25 mg 0.25 mg Q4H PRN PO secretions 01/29/17 11:00 01/29/17 12:07 Piperacillin Sod/ Tazobactam Sod (Zosyn 3.375 Gm Premix) 50 ml @ 100 mls/hr Q8H IV 01/29/17 13:00 01/30/17 05:24 Objective Remarks GENERAL: Intubated, male, lying supine in bed SKIN: Warm and dry. hematoma tracking down right neck. HEAD: Normocephalic. rhino rockets in bilateral nares, dried crusted blood along nare EYES: No injection or drainage. NECK: Supple, trachea midline. CARDIOVASCULAR: tachycardic, irregular rhythm RESPIRATORY: scattered rhonchi. on mechanical ventilation GASTROINTESTINAL: Abdomen distended. EXTREMITIES: No cyanosis NEUROLOGICAL: intubated. does not track with eyes. does withdraw from pain. Assessment/Plan Problem List: (1) Thrombosis of left atrium without antecedent myocardial infarction Status: Acute Plan: 01/30/17: cannot anticoagulate due to bleeding. (2) Thrombocytopenia Status: Acute Plan: 01/30/17: platelet fell to 47 overnight. monitor. --likely d/t bleeding + acute illness. --CLIFFORD negative (3) Epistaxis Status: Acute Plan: 01/30/17. Rhino rockets remain. --Rhino rockets replaced 01/21 after being removed 01/20 --anticoagulation on hold Assessment 71y/o male admitted in afib w/RVR. 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 --hematoma from central line placement in the right neck --epistaxis requiring nasal plugs Plan 1. monitor CBC 2. cannot anticoagulate d/t bleeding, falling hgb. prognosis poor. Attending Statement The exam, history, and the medical decision-making described in the above note were completed with the assistance of the mid-level provider. I reviewed and agree with the findings presented. I attest that I had a [id number] encounter with the patient on the same day, and personally performed and documented my assessment and findings in the medical record. Pt seen and examined, family at bedside. Discussed many aspects of care. Concern about new decubitus R heel. R nasal balloon came out, dry crust in nares, L nasal balloon still in place. Intubated and sedated. Discussed competing needs. HIT negative. Ok to use heparin as needed for anticoagulation, however, platelet continue to be low. Pt with minor bleed such as nares or decrease hemoglobin results in stopping anticoagulation. Defer to ENT regarding Nasal balloon and further recommendations. Priya Fraga January 30, 2017 10:16 Meghan Torres MD January 30, 2017 18:25
--- NOTE | 2017-01-30 11:01 | HHI.NPPN ---
Subjective General Problems: Anemia, Edema, Heart Disease Renal Failure: Acute History of Present Illness 71-year-old the white male the who is transferred from [facility] to [facility] due to atrial fibrillation with fast ventricular response, he was in the heart catheterization lab and became unstable has to intubated the patient has chronic kidney disease, Cardiomyopathy ejection fraction of only 15% and has severe dilated cardiomyopathy with the clot in left atrium he is on heparin drip and currently on ventilator. Additional Remarks Patient remain on the vent. intubated Objective Data Data 01/29/17 01/30/17 19:00 07:00 Intake Total 739 ml 1280 ml Output Total 2250 ml 100 ml Balance -1511 ml 1180 ml IV Total 331 ml 649 ml Tube Feeding 308 ml 571 ml Tube Irrigant 100 ml Other 60 ml Output Urine Total 150 ml 100 ml Stool Total 100 ml Hemodialysis 2000 ml Vital Signs Date Time Temp Pulse Resp B/P Pulse Ox O2 Delivery O2 Flow Rate FiO2 01/30/17 10:00 84 18 118/59 92 126/58 01/30/17 10:00 84 01/30/17 09:45 98.9 78 18 91/63 91 01/30/17 09:00 95 18 152/63 90 144/68 01/30/17 08:00 98.4 86 18 103/59 92 110/54 01/30/17 08:00 86 01/30/17 08:00 86 103/59 110/54 01/30/17 08:00 65 01/30/17 07:43 93 65 01/30/17 06:00 107 01/30/17 04:00 99.0 86 18 105/72 95 122/61 01/30/17 04:00 65 01/30/17 04:00 86 105/72 122/61 01/30/17 04:00 86 01/30/17 02:51 96 65 01/30/17 02:00 99 01/30/17 00:00 99.6 106 19 111/61 95 121/63 01/30/17 00:00 65 01/30/17 00:00 106 01/30/17 00:00 106 111/61 121/63 01/29/17 23:29 95 65 01/29/17 22:00 115 01/29/17 20:02 93 65 01/29/17 20:00 65 01/29/17 20:00 144 01/29/17 20:00 144 132/65 140/63 01/29/17 20:00 99.5 144 19 132/65 93 140/63 01/29/17 18:00 141 01/29/17 16:51 87 19 87/50 90 90/46 01/29/17 16:00 89 01/29/17 16:00 99.6 89 18 98/55 91 114/49 01/29/17 16:00 60 01/29/17 16:00 89 98/55 114/49 01/29/17 15:38 99 75 01/29/17 15:00 126 15 110/57 95 130/55 01/29/17 14:00 127 23 102/56 92 114/52 01/29/17 14:00 127 01/29/17 13:00 131 89/67 89 139/72 01/29/17 12:17 95 75 01/29/17 12:00 75 01/29/17 12:00 114 107/65 148/64 01/29/17 12:00 101.7 114 20 107/65 92 148/64 01/29/17 12:00 114 01/29/17 11:45 134 18 160/70 90 01/29/17 11:30 137 18 166/73 89 01/29/17 11:15 131 18 155/66 84 01/29/17 11:00 133 18 130/61 92 147/61 -: 01/30/17 0650 01/30/17 0515 Microbiology 01/29/17 Aerobic Blood Culture, Received Pending 01/29/17 Anaerobic Blood Culture, Received Pending 01/29/17 Aerobic Blood Culture, Resulted Pending 01/29/17 Anaerobic Blood Culture - Final, Resulted QNS - SEE AEROBE REPORT 01/30/17 Gram Stain, Received Pending 01/30/17 Sputum Culture, Received Pending 01/30/17 Urine Culture, Received Pending Physical Exam General Appearance: Well Developed Eyes Eye Exam: Pupils Equal Throat Throat Exam: Oral Mucosa [place] & Moist Pulmonary Resp Exam: Rhonchi, Decreased Bases, Diminished Breath Sounds Cardiology CV Exam: Arrhythmia Gastrointestinal/Abdomen GI Exam: Soft, Non-Tender, Distended Extremeties Extremities Exam: Moderate Edema, Pitting Edema, Dependent Edema Neurologic Neuro Exam: Sedated Assessment/Plan Problem List: (1) Acute renal failure Plan: Patient urine out put is low He has poor ejection fraction and is intubated Severe cardiomyopathy prognosis is guarded. hemodialysis last UF 2 L dialysis issues with clotting, using Argatroban and Citrate based dialysate hemoglobin dropped and receiving 1 unit of packed red blood cell Neurology has been consulted FiO2 65% Urine out put remain low. BUN and Creatinine improve postdialysis (2) CKD (chronic kidney disease) stage 4, GFR 15-29 ml/min Plan: Has high creatinine kidney ultrasound reviewed (3) CHF (congestive heart failure) Plan: Severe cardiomyopathy EF 15% (4) Atrial fibrillation with rapid ventricular response Plan: Has a blood clot in [place] appendage (5) Thrombocytopenia Plan: platelets 54 k Problem Qualifiers (1) CHF (congestive heart failure): Christa Hahn MD January 30, 2017 11:01
--- NOTE | 2017-01-30 13:16 | MB ---
cc: NAYANA RAMSEY M.D. DATE OF CONSULTATION 01/30/2017 REASON FOR CONSULTATION Encephalopathy HISTORY OF PRESENT ILLNESS Mr. Palmer is a 71-year-old man with atrial fibrillation who was scheduled to have an ablation procedure, however developed respiratory arrest and has been ventilator dependent. He also developed renal insufficiency for which he is receiving dialysis on a p.r.n. basis. Additionally he has developed thrombocytopenia. He has been intubated. When his sedation has been held, he withdraws from pain, but otherwise is not responsive off sedation. Therefore, neurology is consulted and he has no focal deficits. MEDICATIONS Current medications are: 1. Piperacillin 2. Levsin 3. Nystatin 4. Diltiazem 5. Amiodarone 6. Argatroban 7. Solu-Medrol 20 mg b.i.d. 8. Coreg 6.25 mg b.i.d. 9. Labetalol as needed 10. Nitroglycerin p.r.n. 11. Apresoline P.r.n. 12. Prevacid 30 mg daily 13. PhosLo 667 mg t.i.d. 14. Mannitol 12.5 mg p.r.n. dialysis 15. Gentamicin sulfate with dialysis 16. Zofran p.r.n. 17. Tylenol p.r.n. 18. Epogen 19. Fentanyl 20. Versed 21. Atrovent NEUROLOGIC EXAMINATION VITAL SIGNS: Blood pressure is 118/59, pulse is 84, respiratory rate is 18, temperature 98 degrees. Higher cortical function, he is sedated at the present time. Cranial nerves: The pupils are 2 mm symmetric and react to light. The extraocular movements are intact to doll's eyes maneuvers. Gag is diminished. On motor exam, he has no withdrawal to painful stimuli. No focal deficit. Reflexes are 1+ biceps, triceps, brachial radialis, and patella is symmetric. There is no Babinski sign present. LABORATORY DATA The sodium is 139, potassium 3.9, chloride 99, CO2 26.9, the BUN is 83, creatinine 3.73, GFR 16, glucose 145, calcium 7.4, AST 35, ALT is 67. He white count 4000, hemoglobin 6.9, hematocrit 20% platelet count 48,000. His INR 1.3, PT 14.5. IMPRESSION Probable metabolic encephalopathy from respiratory failure as well as well as renal failure. I do not find any focal deficits at the present time. RECOMMENDATIONS If the patient becomes stable enough, would like to proceed with a CT of the brain if possible. Currently, however, he does not appear to be stable for the study. We will also review the EEG. Obtain additional labs including a serum ammonia level, thyroid panel and a vitamin B12 level. MD SHERYL Franco/TRA /10:55 AM /1:08 PM
[2017-01-30 16:30] LABS: HEPARIN INDUCED PLATELET AB NEGATIVE (NEGATIVE)
[2017-01-30 16:31] LABS: HEPARIN AB OD 0.237 O.D. (0.000-0.300)
--- NOTE | 2017-01-30 16:52 | MG ---
cc: NAYANA RAMSEY Lab No: Date: 01/30/2017 Age: Sex: M Race: TEST NUMBER [id number] TECHNIQUE A 17 channel EEG. DESCRIPTION The background rhythm is generally slow in the delta frequency at roughly 4 Hz. Amplitude is 30-40 microvolts. There are no lateralizing features. There are no epileptiform discharges. Hyperventilation was not done. Photic results in a poor driving response. INTERPRETATION Abnormal study consistent with a severe encephalopathy. MD SHERYL Franco/CHARLENE /3:18 PM /4:44 PM
[2017-01-30 17:03] LABS: HEMATOCRIT 24.5 % (39.0-51.0)
[2017-01-30 17:04] LABS: REVIEW FLAG FINAL
--- NOTE | 2017-01-30 17:56 | HHI.PR ---
Subjective Remarks Not Sedated and on Vent support ,now on PEEP 10. FIO2 at 75%. remains critical and CXR shows left base atelectasis No active bleeding. Will have dialysis . No response to commands even off sedation Objective Vital Signs Date Time Temp Pulse Resp B/P Pulse Ox O2 Delivery O2 Flow Rate FiO2 01/30/17 15:31 92 65 01/30/17 14:00 114 01/30/17 14:00 118 18 151/75 94 99/78 01/30/17 13:45 118 18 98/76 94 01/30/17 13:01 98.9 75 18 103/61 91 80/58 01/30/17 13:00 98.9 75 18 103/61 91 79/58 01/30/17 12:18 92 75 01/30/17 12:00 114 143/72 144/72 01/30/17 12:00 98.9 114 18 143/72 92 144/72 01/30/17 12:00 75 01/30/17 12:00 114 01/30/17 11:00 89 18 114/60 89 115/60 01/30/17 10:00 84 18 118/59 92 126/58 01/30/17 10:00 84 01/30/17 09:45 98.9 78 18 91/63 91 01/30/17 09:00 95 18 152/63 90 144/68 01/30/17 08:00 98.4 86 18 103/59 92 110/54 01/30/17 08:00 86 01/30/17 08:00 86 103/59 110/54 01/30/17 08:00 65 01/30/17 07:43 93 65 01/30/17 06:00 107 01/30/17 04:00 99.0 86 18 105/72 95 122/61 01/30/17 04:00 65 01/30/17 04:00 86 105/72 122/61 01/30/17 04:00 86 01/30/17 02:51 96 65 01/30/17 02:00 99 01/30/17 00:00 99.6 106 19 111/61 95 121/63 01/30/17 00:00 65 01/30/17 00:00 106 01/30/17 00:00 106 111/61 121/63 01/29/17 23:29 95 65 01/29/17 22:00 115 01/29/17 20:02 93 65 01/29/17 20:00 65 01/29/17 20:00 144 01/29/17 20:00 144 132/65 140/63 01/29/17 20:00 99.5 144 19 132/65 93 140/63 01/29/17 18:00 141 I/O 01/29/17 01/29/17 01/29/17 01/30/17 01/30/17 01/30/17 07:00 15:00 23:00 07:00 15:00 23:00 Intake Total 501 ml 739 ml 556 ml 724 ml 1464 ml Output Total 100 ml 250 ml 2050 ml 50 ml 130 ml Balance 401 ml 489 ml -1494 ml 674 ml 1334 ml IV Total 200 ml 331 ml 277 ml 372 ml 804 ml Tube Feeding 271 ml 308 ml 249 ml 322 ml 310 ml Packed Cells 250 ml Tube Irrigant 100 ml 100 ml Other 30 ml 30 ml 30 ml Output Urine Total 100 ml 150 ml 50 ml 50 ml 30 ml Stool Total 100 ml 100 ml Hemodialysis 2000 ml Result Diagram: 01/30/17 1630 01/30/17 0515 Objective Remarks GENERAL: This is an obese, elderly man who is intubated, assisting the ventilator. HEENT: Head is normocephalic. Pupils are reactive. NECK:Has a neck hematoma on right. Trachea is midline. CHEST: Decreased breath sounds with crackles at both lung bases.Occ wheeze heard. Decreased breath sounds at bases HEART: The heart sounds are irregular S1-S2. No murmur. ABDOMEN: Soft. Obese without masses. No organomegaly. EXTREMITIES: 1 + edema. Decreased peripheral pulses. Reflexes are not elicited. The patient is lethargic SKIN: Dry and cool. Assessment and Plan Assessment and Plan IMPRESSION 1. Hypoxic respiratory failure. 2. Left lower lobe atelectasis and possible pneumonia with aspiration. 3. Left pleural effusion resolved. 4. Cardiomyopathy and congestive heart failure. 5. Obstructive sleep apnea. 6. Diabetes mellitus. 7. Atrial fibrillation. 8. Nasopharyngeal bleed Plan : 1. Wean FIO2 to keep sat >90. 2. Reduce PEEP to 10 CM, FIO2 to 70 % 3. Antibiotics per ID. 4. CBC CXR ,BMP in am. 5. Nebs qid , duoneb. 6. Trach suction and Lavage 7. Tube feeds at 50 CC 8. Solumedrol 20 mg IV q12h 9. Dialysis today. 10. Plan Tracheostomy when stable Julius Burch MD January 30, 2017 17:56
[2017-01-30] MEDS: AMIODARONE INJ 450 MG in DEXTROSE 5% IN WATE(EXCEL) INJ 241 ML IV SCH ×2 (20:12)
[2017-01-31] VITALS (20 sets, daily range): BP systolic 102–141; BP diastolic 51–81; PULSE 71–134; RESP 17–20; TEMP 99–99.6; O2SAT 89–97
[2017-01-31] MEDS: PROPOFOL 1000 MG/100 ML IV SCH ×6 (02:49→20:30)
[2017-01-31] MEDS: CHLORHEXIDINE GLUCONATE 2 % 1 PACK (2 CLOTHS) TOP SCH (04:00)
[2017-01-31] MEDS: RESP: IPRATROPIUM 0.5 MG/2.5 ML NEB NEB SCH (04:15)
[2017-01-31] MEDS: METOCLOPRAMIDE HCL 10 MG/2 ML VIAL IV PUSH SCH ×3 (04:52→20:29)
[2017-01-31] MEDS: PIPERACIL-TAZO 3.375 GM PREMIX 50 ML IV SCH ×3 (04:53→20:31)
[2017-01-31] MEDS: ARTIFICIAL TEARS OPTH SOLN 15 ML BTL EACH EYE SCH ×3 (04:53→20:30)
[2017-01-31 04:54] LABS: AUTOMATED NEUTROPHIL # 4.6 TH/MM3 (1.8-7.7); BASOPHIL % 0.3 % (0.0-2.0); EOSINOPHIL # 0.2 TH/MM3 (0-0.4); EOSINOPHIL % 3.2 % (0.0-4.0); HEMATOCRIT 25.2 % (39.0-51.0); LYMPH % 4.1 % (9.0-44.0); LYMPHOCYTE # 0.2 TH/MM3 (1.0-4.8); MEAN CELL VOLUME 88.8 FL (80.0-100.0); MEAN CORPUSCULAR HEMOGLOBIN 29.1 PG (27.0-34.0); MEAN CORPUSCULAR HGB CONC 32.8 % (32.0-36.0); MONO % 4.1 % (0.0-8.0); NEUT % 88.3 % (16.0-70.0); PLATELET COUNT 61 TH/MM3 (150-450); RED BLOOD COUNT 2.84 MIL/MM3 (4.50-5.90); RED CELL DISTRIBUTION WIDTH 16.9 % (11.6-17.2); WHITE BLOOD COUNT 5.2 TH/MM3 (4.0-11.0)
[2017-01-31 05:07] LABS: HEMO FLAGS DIFF FINAL
[2017-01-31 05:23] LABS: BICARBONATE 25.4 MEQ/L (21.0-32.0); POTASSIUM 3.8 MEQ/L (3.5-5.1)
[2017-01-31] MEDS: DILTIAZEM INJ 125 MG in SODIUM CHLORIDE 0.9% INJ 100 ML IV SCH ×3 (05:59→21:00)
[2017-01-31] MEDS: INSULIN ASPART SUPPLEMENTAL SCALE SQ SCH ×5 (05:59→23:30)
[2017-01-31] MEDS ORDERED: RESP: ALBUTEROL 2.5 MG/3 ML NEB (PRN) NEB (08:00)
--- NOTE | 2017-01-31 08:09 | HHI.CCPN ---
Subjective Remarks/Hospital Course This is a 71-year-old gentleman that presented to [facility] secondary to dyspnea and atrial fibrillation with RVR. The patient has a medical history significant for obesity and hypertension. During his hospitalization at [facility], the patient underwent an echocardiogram which showed severe systolic dysfunction with an ejection fraction of 1015 % the patient then underwent a cardiac catheterization showing significance with left circumflex 90%. The patient underwent multiple attempts of unsuccessful synchronized cardioversion. The patient also underwent medical management with beta blockers, and calcium channel blockers that were also unsuccessful. The patient was transferred to [facility] for cardiac ablation with Dr. Jimenez. The patient was scheduled for cardiac ablation, the procedure was canceled. The patient required emergent intubation and required ventilator management a VLADIMIR was performed showing a clot in the left atrial appendage. The patient was placed on IV Cardizem, and an amiodarone infusion. Critical Care medicine was consulted for management. 01/06: Tmax 97.4. The patient remained on elevated vent settings with FiO2 of 1.0 overnight, PEEP requirements were increased to 8, to maintain a PaO2 of greater than [address] scan of the chest was obtained which noted bilateral effusions small, basilar consolidations right worse than the left, and a loculated area representing a possible pneumonia process, empyema, as well as aspiration or just loculated fluid as well as a small pericardial effusion. The patient continues on Cardizem and amiodarone infusions with a heart rate overnight 80s -115. The patient's vasopressor requirements of phenylephrine diminished to 20 mcgs. 01/07: Tmax 99.2. Yesterday the central line was placed for vasoactive medications and CVP monitoring, small hematoma noted near the right IJ area soft no compression of major vessels, with resolution of bleeding in that area. Phenylephrine was discontinued yesterday. The patient heart rate remains today [id number]. Cardizem infusion has been discontinued in the setting of EF of 10-15%. Esmolol infusion to be initiated this a.m.. Coumadin was initiated last night now placed on hold due to patient bleeding from nasopharynx and oropharynx. INR currently 1.2. Plan for CT thorax tomorrow, with possible IR intervention versus CVT consultation for possible empyema the patient will remain on heparin infusion, and transition onto Coumadin after any potential procedures to be initiated. Chest x-ray slightly improved FiO2 decreasing now 70%. Sedation vacation yesterday revealed GCS 11 T, patient alert responsive following commands. With initiation of antibiotics, leukocytosis resolved. ID consulted Dr. Gage. Blood cultures are pending. 01/08: Patient's heart rate 110-[address] scan of the chest imaging revealed fluid. Plan for thoracentesis and and studies of pleural fluid , this afternoon. The patient remains on amiodarone and heparin infusions, per cardiology. Heparin held, for thoracentesis this afternoon, and then will be resumed. The patient was maintained on CPAP trial for approximately one hour yesterday. During sedation vacation patient was alert following commands recognizing family. Plan to resume CPAP trials this afternoon post thoracentesis. 01/09: The patient underwent CT-guided thoracentesis yesterday , on the right side noted 400 cc of fluid was removed , with specimens ordered to be sent for evaluation .This morning chest x-ray performed showing almost complete opacification of the left lung. FiO2 requirements increase patient on FiO2 of 80%, O2 sat 94%. Left chest ultrasound obtained revealing no fluid. Consent obtained BAL performed, revealing emanating from the nearest previously ( patient was noted to have epistaxis with initiation of heparin on 01/06). Blood clots noted in left lung upon visualization with bronchoscopy, saline lavage applied, minimal blood clots removed. The patient was initiated on Mucomyst 10% , and pulmonology was consulted. Dr. Tasia Lama following. The patient shows no signs or evidence of bleeding actively, plan to consult ENT if signs of active bleeding become evident. Hemoglobin remains stable.The patient converted into sinus rhythm is today afternoon. Cardiology management of medications, IV amiodarone discontinued this afternoon. 01/10: Tmax 99.0. Chest x-ray shows slight improvement of left lung today. Plan for repeat bronchoscopy per Dr. Burch this a.m, and the patient continues on Mucomyst. The patient's cardiac rhythm reverted to A. fib last evening, amiodarone IV infusion reinstituted per Dr. Jimenez. 01/11: TMax 100.0. Much improved chest x-ray this morning. The patient continues in A. fib with a rate of 120, he continues on amiodarone, heparin infusion per cardiology. No evidence of active bleeding. 5/12 Patient Remains sedated with Diprivan, intubated. T:99.9. On Neosyn 15 mics , heparin and Amio drips. In Afib with RRV. Patient s/p repeat bronch with BAL yesterday by Dr. Burch and ETT replacement by Dr. Sanchez. On PC/AC with PEEP:14 , FIO2 100%. 01/13: TMax 100.2. Last night the nurse reported that the patient had a small amount of epistaxis, and blood in the oropharynx noted. The area continued to bleed during the night. ENT has been consulted. Heparin has been placed on hold , ASA has been discontinued in the setting of acute renal failure. The patient continues on amiodarone infusion , heart rate 120's. Neosynephrine has been discontinued, and Levophed instituted. Creatinine noted to be 4.5. As per report , states patient does not want dialysis. The patient continues on elevated PEEP of 14. 5/14: Heparin was discontinued yesterday in the setting of continued bleeding in the nasal/ oropharyngeal region. ENT was consulted and nasal packing was applied. During the night the patient still had small noted amount of bleeding from the oropharyngeal area plan today for oropharyngeal packing. Hgb 9, will transfuse .The patient was placed on norepinephrine for currently at 1-2 mcgs per minute. PEEP has been decreased to 12, with adequate oxygenation a PaO2 of 71. 5/15: Tmax 99.0. The patient continues to be anemic and thrombocytopenic, contributory factors being uremia. The patient's /family decided to pursue hemodialysis at this point. The patient received 1 unit of packed red blood cells yesterday. The patient was initiated on dialysis yesterday afternoon, with approximately 3 L removed. Nasal gauze packing removed and placement of nasal balloons by ENT yesterday. Oral gauze packing to be removed today. The patient received 2 separate doses of digoxin, A. fib heart rate ranging 80- < 120. The patient continues to have high ventilatory requirements, FiO2 was increased throughout the night to currently 80%, to maintain O2 sat greater than 92%. 01/16: FiO2 at 85%. Large clots removed from oropharynx overnight. Transfused 2 units PRBCs yesterday. No bowel movement. Tolerating tube feeds at 40 cc now with Nepro 01/17: Maximum 100.6. CURRENT TEMPERATURE 98.1. Central line pulled out yesterday. Flolan initiated yesterday and FiO2 down to 65%. Tolerating tube feeds. No bowel movement. Arousable weakly follow commands yesterday 01/18: Tmax 99.8. Currently afebrile. Initially, hemoptysis with desaturation requiring bronchoscopy. See bronchoscopy note. Roto-Rest bed ordered. FiO2 from 100-70% currently. On Nimbex drip. No BM. Tolerating tube feeds. 01/19: Afebrile. FiO2 down to 40%. We will attempt a wean Flolan today. On Nimbex drip. Positive BM yesterday. Tolerating tube feeds. 01/20: FiO2 back to 100%. Flolan "fell off "overnight. Ventilator adjusted back to 100%. Flolan reinstituted. Chest x-ray and ABG pending. Tolerating tube feeds. Positive BM. Afebrile. 01/21: Intolerant of tube feeding. KUB pending. Afebrile. Bleeding from bilateral nares and Alanis overnight. Argatroban has been held. Positive BM. 01/22 Patient is sedated with Fentanyl , versed in addition he is on Nimbex. Receiving HD. TF on hold for high residuals. 01/23 Patient is on Roto prone bed sedated and intubated. s/p HD yesterday with removal 3L. On Nimbex, afebrile. 01/24 Patient remains sedated with Versed, Fentanyl and remains on Nimbex. On PC/ AC with PEEP: 10, FIO2 down 40%. For HD today. Afebrile. 01/25 Patient remains sedated and intubated . On PC/AC with PEEP: 10 and FIO2 50% . s/p HD yesterday with removal 4.5L. Afebrile. 01/26 Patient is sedated with Fentanyl off versed and Nimbex. s/p bronch yesterday by Dr. Burch. On PRVC/AC with PEEP: 10 and FIO2 down to 50% s/p HD yesterday with removal 1.5. For another HD session today. 01/27 Patient is sedated with Fentanyl and intubated, s/p HD yesterday with removal 4L. Afebrile. On PRVC/AC mode with PEEP; 10 and FIO2 45% 01/28 Patient remains sedated with Fentanyl and intubated. s/p HD yesterday with removal 3L. Placed on Amio drip yesterday for Afib with RVR, 01/29 No acute events overnight. Sedated with Fentanyl and intubated. Afebrile. On PRVC/AC with PEEP: 10 and FIO2 70% decreased to 60% 01/30 No events overnight. Sedated with Diprivan on Amio drip and Cardizem 5mg/ hr. s/p HD yesterday with removal 2L. Spiked fever yesterday with T 101.7 .On PRVC/AC with PEEP: 10, FIO2 65% Subjective: 01/31: Afebrile. FiO2 at 65%. PEEP at 10. Heart rate between 70 and 130. Cardizem drip at 15 mg an hour. For CT head today. Copious amounts of oral secretions. Minimal via suctioning Objective Vital Signs Date Time Temp Pulse Resp B/P Pulse Ox O2 Delivery O2 Flow Rate FiO2 01/31/17 07:39 94 65 01/31/17 06:00 76 01/31/17 04:00 99.1 18 110/69 114/59 Intake and Output 01/30/17 01/30/17 01/31/17 08:00 16:00 00:00 Intake Total 724 ml 1464 ml 720 ml Output Total 50 ml 130 ml 85 ml Balance 674 ml 1334 ml 635 ml Result Diagram: 01/31/17 0415 01/31/17 0415 Other Results Microbiology Date/Time Procedure Status Source Growth 01/30/17 07:50 Urine Culture Received Urine Catheterized Urine Pending 01/30/17 07:50 Gram Stain - Final Resulted Sputum Endotracheal 01/30/17 07:50 Sputum Culture Resulted Sputum Endotracheal Pending 01/29/17 14:10 Aerobic Blood Culture - Preliminary Resulted Blood Peripheral NO GROWTH IN 1 DAY 01/29/17 14:10 Anaerobic Blood Culture - Preliminary Resulted Blood Peripheral NO GROWTH IN 1 DAY 01/29/17 12:39 Aerobic Blood Culture Received Blood Peripheral Pending 01/29/17 12:39 Anaerobic Blood Culture Received Blood Peripheral Pending Imaging Last Impressions Chest X-Ray 01/29/17 0000 Signed Impressions: Service Date/Time: Sunday, January 29, 2017 07:37 - CONCLUSION: 1. Moderate- sized bibasilar opacities likely representing pleural effusions with associated volume loss and or consolidation. These appear slightly larger than on yesterday's examination. 2. New or increased consolidation in the left upper lung zone. 3. Stable mild enlargement of the cardiac silhouette. Daniel Reyes MD Abdomen X-Ray 01/21/17 0000 Signed Impressions: Service Date/Time: Saturday, January 21, 2017 08:41 - CONCLUSION: Nondiagnostic study. Gurvinder Collier MD Renal Ultrasound 01/09/17 0000 Signed Impressions: Service Date/Time: Monday, January 09, 2017 13:56 - CONCLUSION: 1. Right kidney is sonographically normal. 2. Benign-appearing 2.4 x 1.5 cm cortical cyst in the midpole of the left kidney. 3. Subcentimeter echogenic, non-shadowing foci in the midpole of the left kidney would be unusual for stones and may represent ectopic hilar fat. No hydronephrosis. 4. Urinary bladder is decompressed with a Alanis catheter. Douglas Ward MD Chest Ultrasound 01/09/17 0000 Signed Impressions: Service Date/Time: Monday, January 09, 2017 08:18 - CONCLUSION: No left-sided pleural effusion. The abnormality in the left chest on chest radiograph is likely related to mucous plugging. When patient had a CT scan yesterday the left lung was well aerated. Edgardo Mayorga MD Chest CT 01/08/17 0600 Signed Impressions: Service Date/Time: Sunday, January 08, 2017 08:46 - CONCLUSION: Massive cardiomegaly with panchamber enlargement extensive coronary calcifications. Stable trace pericardial effusion. Increasing bibasilar consolidative changes with minimal bilateral pleural effusions.. Rhys Fritz MD FACR Thoracentesis 01/08/17 0000 Signed Impressions: Service Date/Time: Sunday, January 08, 2017 16:08 - CONCLUSION: Uncomplicated CT-guided thoracentesis on the right. The left sided thoracentesis was not performed as there was no significant left pleural fluid. The abnormality on most recent chest x-ray was secondary to mucous plugging and left sided atelectasis. Edgardo Mayorga MD Objective Remarks GENERAL: 71-year-old male, critically ill-appearing obese male lying in bed in no acute distress SKIN: Warm and dry. No rash. Right heel ulcer 2 x 2 centimeters and evolving stage 0 sacral decubitus ulcer HEAD: Atraumatic. Normocephalic. EYES: Pupils equal and round, 5mm and reactive to 4 mm. No scleral icterus. No injection or drainage. ENT: Patient has Rhino Rocket in left nares only. No active bleeding. Clear secretions from mouth with suctioning NECK: Trachea midline. Unable to assess JVD secondary to body habitus. Large right-sided neck hematoma without tracheal shift appears to be softer and less defined than 1 week ago. Evolving ecchymoses. Left subclavian central line is clean dry and intact CARDIOVASCULAR: Tachycardia, IR. S1, S2 no S4 without murmur RESPIRATORY: Diminished breath sounds throughout especially in the bases bilaterally. Few crackles in bases bilaterally. Breath sounds equal bilaterally. GASTROINTESTINAL: Abdomen soft, obese non-tender, nondistended. No active bowel sounds MUSCULOSKELETAL: Extremities with 1+ peripheral edema. No obvious deformities. Posterior tibialis is palpable bilaterally. Right femoral Vas-Cath is clean dry and intact NEUROLOGICAL: Positive corneal reflex. Positive gag. Does not withdraw to pain. Negative Babinski Date of Insertion: January 05, 2017 Date of Insertion: January 17, 2017 Line: Central Venous Catheter Side: Left Location: Subclavian, Jugular A/P Assessment and Plan Neuro/Psych: Epistaxis Continue with Diprivan currently at 10 mics grams per kilogram per minute for sedation while intubated Goal of RA SS -2 Daily sedation vacation Patient doesn't follow commands off sedation. Completed EEG 01/30 revealed no epileptiform activity. Severe encephalopathy. CT brain ordered to be completed today Dr. Cole/neurology following 01/12 New onset epistaxis, heparin discontinued Epistaxis-ENT consulted-nasal balloons in situ maintain balloons until 01/20 per ENT recommendation. Removed 01/20 but resumed bleeding so replaced- 01/21 Right Nares Rhino Rocket fell out. Will move left today ENT following - Dr. Byrd. Respiratory: Acute hypoxic respiratory failure Left lung consolidation 2/2 previous event of epistaxis, clotted blood left lung -resolved SONU Probable aspiration Possible multilobar [id number] Bilateral pleural effusions Continue with vent support keep sat >92% On PRVC/AC RR 18, TV 600, IT:1.3, PEEP: 10, FIO2 65%. Wean FiO2 Will need perc trach when stable and platelet count recovers. Currently on DuoNeb scheduled every 6 hours with albuterol every 2 hours as needed ICU vent bundle. Pulmonology following- Dr. Burch Solu-Medrol 20 mg IV BID, off Flolan 01/08-right CT-guided thoracentesis-400 cc removed, sent for cytology and cultures s/p bronch . by- Dr. Burch for blood clots left lung Status post bronch 01/17 by [employer] - bloody mucous plug at saturnino/mainstem section cleared. No obvious source of bleeding. s/p bronch 01/[address] Burch. -minimal secretions. CV: A. fib with RVR Left atrial appendage thrombus Cardiomyopathy Acute Systolic CHF Hypertension Dyslipidemia Continue with Amio at 200 mg twice a day, Coreg 12.5 mg BID. Monitor HR and BP keep MAP>65mmHg On Cardizem drip 15mg/hr for rate control. 01/13- Heparin, ASA discontinued due to epistaxis 01/05 VLADIMIR( [employer])-left atrial thrombus EF 15-20%. Systolic function reduced. Diffuse hyperkinesis. 12/26 [facility] severe systolic dysfunction EF 1015%, mitral valve mild to moderate regurg, LAE, tricuspid Valve-mild to moderate regurg, small pericardial effusion, 12/19 cardiac cath left circumflex 90% occlusion Management per Cardiology -Dr. Jimenez Patient is at high risk of bleeding with anticoagulation Renal: Acute on chronic kidney disease stage IV Nephrology following-Dr. Hahn Monitor renal function, I/O's, avoid nephrotoxins. Vascath placement Hemodialysis initiated 01/14. s/p HD 01/29 with removal 2L FEN/GI: Morbid obesity Hyperphosphatemia On Tube feeds- Nepro @50ml/hr KUB abdomen 01/21: Non diagnostic study Prevacid for GI prophylaxis Bowel Colace/Senokot twice a day. On Reglan 5 every 8 and erythromycin 200 every 8 for bowel motility/prokinetic PhosLo 667 3 times a day for hyperphosphatemia Heme: Normocytic anemia Thrombocytopenia Transfused 6 units PRBCs since admission Weakly positive HIT panel-CLIFFORD is negative. Due to gross hematuria and epistaxis all anticoagulants on hold currently. We will attempt heparin drip today Hematology is following ID: Likely aspiration pneumonia 01/06 urine, sputum, blood cultures-NGTD 01/06-Legionella urine antigen negative 01/09 - bronchoscopy - yeast/ID to follow 01/12 - blood cultures 2 - no growth 01/20 - blood cultures 2 - staph Epi 09/06 bottles- likely contaminant 01/29 - blood cultures 2 -no growth 01/30 - sputum - pending 01/30 - urine - pending Continue with abx (Zosyn) Given Vanco x1 dose 01/29-Dr. Gage following, Endocrine: Close monitoring per ICU protocol-medium dose regimen -- SSI Accu-Cheks every 6 hours for glycemic control Prophylaxis: GI Prophylaxis Prevacid 30 mg at night DVT Prophylaxis -- SCDs, Lines: Peripheral IV's. Right femoral HD catheter 01/19, Left subclavian CVL 01/17 Patient developed hematoma on right side of his neck from previous attempt of central line placement. Dispo: is Olena Muhammad [phone] Poor prognosis given resp failure, severe cardiomyopathy with left atrial thrombus, renal failure on HD, encephalopathy, multiorgan injury. Critical Care: The total critical care time was 35 minutes. Time to perform other separately billable procedures was not included in the critical care time. Koby Cagle MD January 31, 2017 08:09 Koby Cagle MD January 31, 2017 08:09
--- NOTE | 2017-01-31 08:26 | RADRPT ---
EXAM DATE/TIME: 01/31/2017 04:11 [facility] COMPARISON: CHEST SINGLE AP, January 29, 2017, 7:37. INDICATIONS : Chest pain. MEDICAL HISTORY : Hypertension. SURGICAL HISTORY : Coronary stent. ENCOUNTER: Initial ACUITY: 1 month PAIN SCORE: 0/10 LOCATION: Bilateral chest FINDINGS: Endotracheal tube and left subclavian central line are stable. Nasogastric tube descends to the stoma ch. Diffuse hazy bilateral predominantly basilar parenchymal opacities persist likely infiltrates and associated layering effusion. Cardiac contours are largely obscured, however grossly unchanged. CONCLUSION: No significant change Daniel Cantu MD on January 31, 2017 at 4:39 Board Certified Radiologist. This report was verified electronically.
[2017-01-31] MEDS: SODIUM CHLORIDE 0.9% FLUSH 10 ML FLUSH IV FLUSH SCH ×2 (09:00→20:30)
[2017-01-31] MEDS: SODIUM CHLORIDE 0.9% FLUSH 10 ML FLUSH IVF SCH (09:00)
[2017-01-31] MEDS: RESP: ALBUTEROL 2.5 MG/IPRATROPIUM 0.5 MG NEB (SCH) NEB ×5 (09:02→23:20)
--- NOTE | 2017-01-31 09:31 | RADRPT ---
EXAM DATE/TIME: 01/31/2017 08:42 [facility] COMPARISON: No previous studies available for comparison. INDICATIONS : Altered mental status RADIATION DOSE: 56.38 CTDIvol (mGy) MEDICAL HISTORY : Cardiovascular disease. Congestive heart failure. Hypertension. SURGICAL HISTORY : None. ENCOUNTER: Initial ACUITY: 1 day PAIN SCALE: Non-responsive LOCATION: cranial TECHNIQUE: Multiple contiguous axial images were obtained of the head. Using automated exposure control and adj ustment of the mA and/or kV according to patient size, radiation dose was kept as low as reasonably a chievable to obtain optimal diagnostic quality images. FINDINGS: CEREBRUM: The ventricles are normal for age. No evidence of midline shift, mass lesion, hemorrhage. Lacunar i nfarcts in the left basal ganglia and left thalamus that are likely old. Lacunar infarct in the right basal ganglia, age indeterminate. No extra-axial fluid collections are seen. POSTERIOR FOSSA: The cerebellum and brainstem are intact. The 4th ventricle is midline. The cerebellopontine angle i s unremarkable. EXTRACRANIAL: Opacification of the mastoid air cells bilaterally. Near-complete opacification of the frontal, ethmo id, maxillary, and sphenoid sinuses. Opacification of the middle ear is bilaterally. SKULL: The calvaria is intact. No evidence of skull fracture. CONCLUSION: 1. 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 Right basal ganglia la cunar infarct is age indeterminate. 2. Maurice sinusitis along with opacification of the middle ears and mastoid air cells bilaterally. Geovanny Lynch MD on January 31, 2017 at 9:24 Board Certified Radiologist. This report was verified electronically.
[2017-01-31] MEDS: LANSOPRAZOLE SOLUTAB 30 MG TAB NG SCH (09:33)
[2017-01-31] MEDS: DOCUSATE SODIUM 100 MG/10 ML UDC PO SCH ×2 (09:33→20:29)
[2017-01-31] MEDS: AMIODARONE 200 MG TAB PO SCH ×2 (09:33→20:30)
[2017-01-31] MEDS: CARVEDILOL 12.5 MG TAB PO SCH ×2 (09:33→20:30)
[2017-01-31] MEDS: CALCIUM ACETATE 667 MG CAP PO SCH ×3 (09:33→18:10)
[2017-01-31] MEDS: LACTULOSE SYRUP 20 GM/30 ML CUP PO SCH (09:33)
[2017-01-31] MEDS: SENNOSIDES SYRUP 8.8 MG/5 ML CUP PO SCH ×2 (09:34→20:30)
[2017-01-31] MEDS: methylPREDNISolone SOD SUCC 40 MG/1 ML VIAL IV PUSH SCH (09:34)
[2017-01-31] MEDS: CHLORHEXIDINE 0.12% (ORAL KIT) 15 ML CUP MT SCH ×2 (09:34→20:29)
[2017-01-31] MEDS ORDERED: HEPARIN SODIUM - IV 10,000 UNITS/10 ML VIAL IVF PRN ×2 (10:45)
--- NOTE | 2017-01-31 10:46 | HHI.NPPN ---
Subjective General Problems: Anemia, Edema, Heart Disease Renal Failure: Acute History of Present Illness 71-year-old the white male the who is transferred from [facility] to [facility] due to atrial fibrillation with fast ventricular response, he was in the heart catheterization lab and became unstable has to intubated the patient has chronic kidney disease, Cardiomyopathy ejection fraction of only 15% and has severe dilated cardiomyopathy with the clot in left atrium he is on heparin drip and currently on ventilator. Additional Remarks Patient remain on the vent. intubated Objective Data Data 01/30/17 01/31/17 19:00 07:00 Intake Total 1464 ml 1310 ml Output Total 130 ml 135 ml Balance 1334 ml 1175 ml Intake Oral 0 ml IV Total 804 ml 655 ml Tube Feeding 310 ml 535 ml Packed Cells 250 ml Tube Irrigant 100 ml 120 ml Output Urine Total 30 ml 60 ml Stool Total 100 ml 75 ml Vital Signs Date Time Temp Pulse Resp B/P Pulse Ox O2 Delivery O2 Flow Rate FiO2 01/31/17 10:00 124 01/31/17 09:04 97 100 01/31/17 08:00 124 135/51 114/59 01/31/17 08:00 65 01/31/17 08:00 71 01/31/17 07:39 94 65 01/31/17 06:00 76 01/31/17 04:19 91 65 01/31/17 04:00 74 01/31/17 04:00 99.1 74 18 110/69 90 114/59 01/31/17 04:00 65 01/31/17 04:00 74 110/69 114/59 01/31/17 02:00 76 01/31/17 00:19 91 65 01/31/17 00:00 99.2 75 18 108/67 91 105/55 01/31/17 00:00 75 01/31/17 00:00 65 01/31/17 00:00 75 108/67 105/55 01/30/17 22:00 79 01/30/17 20:04 93 65 01/30/17 20:00 113 140/64 117/61 01/30/17 20:00 99.0 113 19 140/64 92 142/67 01/30/17 20:00 65 01/30/17 20:00 113 01/30/17 18:00 80 01/30/17 18:00 80 18 115/66 93 131/67 01/30/17 17:00 78 18 105/61 92 115/59 01/30/17 16:00 65 01/30/17 16:00 78 110/64 117/63 01/30/17 16:00 78 01/30/17 16:00 99.1 78 18 110/64 92 117/63 01/30/17 15:31 92 65 01/30/17 15:01 75 18 107/59 91 109/58 01/30/17 14:00 114 01/30/17 14:00 118 18 151/75 94 99/78 01/30/17 13:45 118 18 98/76 94 01/30/17 13:01 98.9 75 18 103/61 91 80/58 01/30/17 13:00 98.9 75 18 103/61 91 79/58 01/30/17 12:18 92 75 01/30/17 12:00 114 143/72 144/72 01/30/17 12:00 98.9 114 18 143/72 92 144/72 01/30/17 12:00 75 01/30/17 12:00 114 01/30/17 11:00 89 18 114/60 89 115/60 -: 01/31/17 0415 01/31/17 0415 Physical Exam General Appearance: Well Developed Eyes Eye Exam: Pupils Equal Throat Throat Exam: Oral Mucosa [place] & Moist Pulmonary Resp Exam: Rhonchi, Decreased Bases, Diminished Breath Sounds Cardiology CV Exam: Arrhythmia Gastrointestinal/Abdomen GI Exam: Soft, Non-Tender, Distended Extremeties Extremities Exam: Moderate Edema, Pitting Edema, Dependent Edema Neurologic Neuro Exam: Sedated Assessment/Plan Problem List: (1) Acute renal failure Plan: Patient urine out put is low He has poor ejection fraction and is intubated Severe cardiomyopathy prognosis is guarded. hemodialysis last UF 2 L dialysis issues with clotting, repeat HIT negative can use Heparin per Hematology during dialysis CT Head Lacunar infarcts, L thalamus infarct, CVA multiple co morbidities, Hemodialysis planned for today Urine out put remain low. BUN and Creatinine higher (2) CKD (chronic kidney disease) stage 4, GFR 15-29 ml/min Plan: Has high creatinine kidney ultrasound reviewed (3) CHF (congestive heart failure) Plan: Severe cardiomyopathy EF 15% (4) Atrial fibrillation with rapid ventricular response Plan: Has a blood clot in [place] appendage (5) Thrombocytopenia Plan: platelets low Problem Qualifiers (1) CHF (congestive heart failure): Christa Hahn MD January 31, 2017 10:45 Christa Hahn MD January 31, 2017 10:45
--- NOTE | 2017-01-31 11:49 | PD.ONC.PN ---
Subjective Subjective Remarks Afebrile overnight. Patient intubated, sedated. No obvious bleeding overnight. CT brain this morning showed bilateral lacunar infarcts in the basal ganglia. Heparin drip remains on hold due to risk of bleed. Objective Data Date Time Temp Pulse Resp B/P Pulse Ox O2 Delivery O2 Flow Rate FiO2 01/31/17 10:00 124 01/31/17 09:04 97 100 01/31/17 08:00 124 135/51 114/59 01/31/17 08:00 65 01/31/17 08:00 71 01/31/17 07:39 94 65 01/31/17 06:00 76 01/31/17 04:19 91 65 01/31/17 04:00 74 01/31/17 04:00 99.1 74 18 110/69 90 114/59 01/31/17 04:00 65 01/31/17 04:00 74 110/69 114/59 01/31/17 02:00 76 01/31/17 00:19 91 65 01/31/17 00:00 99.2 75 18 108/67 91 105/55 01/31/17 00:00 75 01/31/17 00:00 65 01/31/17 00:00 75 108/67 105/55 01/30/17 22:00 79 01/30/17 20:04 93 65 01/30/17 20:00 113 140/64 117/61 01/30/17 20:00 99.0 113 19 140/64 92 142/67 01/30/17 20:00 65 01/30/17 20:00 113 01/30/17 18:00 80 01/30/17 18:00 80 18 115/66 93 131/67 01/30/17 17:00 78 18 105/61 92 115/59 01/30/17 16:00 65 01/30/17 16:00 78 110/64 117/63 01/30/17 16:00 78 01/30/17 16:00 99.1 78 18 110/64 92 117/63 01/30/17 15:31 92 65 01/30/17 15:01 75 18 107/59 91 109/58 01/30/17 14:00 114 01/30/17 14:00 118 18 151/75 94 99/78 01/30/17 13:45 118 18 98/76 94 01/30/17 13:01 98.9 75 18 103/61 91 80/58 01/30/17 13:00 98.9 75 18 103/61 91 79/58 01/30/17 12:18 92 75 01/30/17 12:00 114 143/72 144/72 01/30/17 12:00 98.9 114 18 143/72 92 144/72 01/30/17 12:00 75 01/30/17 12:00 114 01/31/17 01/31/17 01/31/17 07:00 15:00 23:00 Intake Total 590 ml Output Total 50 ml Balance 540 ml Result Diagram: 01/31/17 0415 01/31/17 0415 Laboratory Results Laboratory Tests Test 01/30/17 01/30/17 01/31/17 12:20 16:30 04:15 Ammonia 39 MCMOL/L Vitamin B12 Level 810 PG/ML Thyroid Stimulating Hormone 0.858 uIU/ML 3rd Gen Hemoglobin 8.3 GM/DL 8.3 GM/DL Hematocrit 24.5 % 25.2 % White Blood Count 5.2 TH/MM3 Red Blood Count 2.84 MIL/MM3 Mean Corpuscular Volume 88.8 FL Mean Corpuscular Hemoglobin 29.1 PG Mean Corpuscular Hemoglobin 32.8 % Concent Red Cell Distribution Width 16.9 % Platelet Count 61 TH/MM3 Mean Platelet Volume 10.9 FL Neutrophils (%) (Auto) 88.3 % Lymphocytes (%) (Auto) 4.1 % Monocytes (%) (Auto) 4.1 % Eosinophils (%) (Auto) 3.2 % Basophils (%) (Auto) 0.3 % Neutrophils # (Auto) 4.6 TH/MM3 Lymphocytes # (Auto) 0.2 TH/MM3 Monocytes # (Auto) 0.2 TH/MM3 Eosinophils # (Auto) 0.2 TH/MM3 Basophils # (Auto) 0.0 TH/MM3 CBC Comment DIFF FINAL Differential Comment Sodium Level 138 MEQ/L Potassium Level 3.8 MEQ/L Chloride Level 97 MEQ/L Carbon Dioxide Level 25.4 MEQ/L Anion Gap 16 MEQ/L Blood Urea Nitrogen 95 MG/DL Creatinine 4.40 MG/DL Estimat Glomerular Filtration 13 ML/MIN Rate Random Glucose 113 MG/DL Calcium Level 7.7 MG/DL Culture Results Microbiology Date/Time Procedure Status Source Growth 01/29/17 12:39 Aerobic Blood Culture Received Blood Peripheral Pending 01/29/17 12:39 Anaerobic Blood Culture Received Blood Peripheral Pending 01/29/17 14:00 Aerobic Blood Culture - Preliminary Resulted Blood Peripheral NO GROWTH IN 2 DAYS 01/29/17 14:00 Anaerobic Blood Culture - Final Resulted Blood Peripheral QNS - SEE AEROBE REPORT 01/29/17 14:10 Aerobic Blood Culture - Preliminary Resulted Blood Peripheral NO GROWTH IN 2 DAYS 01/29/17 14:10 Anaerobic Blood Culture - Preliminary Resulted Blood Peripheral NO GROWTH IN 2 DAYS 01/30/17 07:50 Gram Stain - Final Resulted Sputum Endotracheal 01/30/17 07:50 Sputum Culture Resulted Sputum Endotracheal Pending 01/30/17 07:50 Urine Culture - Preliminary Resulted Urine Catheterized Urine NO GROWTH IN 24 HOURS. Imaging Studies Last [address] 01/31/17 0000 Signed Impressions: Service Date/Time: Tuesday, January 31, 2017 08:42 - CONCLUSION: 1. 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 Right basal ganglia lacunar infarct is age indeterminate. 2. Maurice sinusitis along with opacification of the middle ears and mastoid air cells bilaterally. Geovanny Lynch MD Chest X-Ray 01/31/17 0000 Signed Impressions: Service Date/Time: Tuesday, January 31, 2017 04:11 - CONCLUSION: No significant change Daniel Cantu MD Administered Medications Medications (Trade) Dose Ordered Sig/Claire Route PRN Reason Start Time Stop Time Status Last Admin Dose Admin Propofol (Diprivan 1000 Mg/100ml Inj) 100 ml @ 0 mls/hr TITRATE IV 01/05/17 21:45 01/31/17 09:35 Docusate Sodium (Colace Liq) 100 mg Q12HR PO 01/06/17 21:00 01/31/17 09:33 Sodium Chloride (NS Flush) 2 ml UNSCH PRN IV FLUSH FLUSH AFTER USING IV ACCESS 01/06/17 13:15 01/29/17 09:33 Sodium Chloride (NS Flush) 2 ml BID IV FLUSH 01/06/17 21:00 01/31/17 09:00 Chlorhexidine Gluconate (Chlorhexidine 2% Cloth) Taper DAILY@04 TOP 01/07/17 04:00 01/03/18 03:59 01/31/17 04:00 Dextrose (D50w (Vial) Inj) 25 ml UNSCH PRN IV PUSH HYPOGLYCEMIA-SEE COMMENTS 01/09/17 07:15 01/21/17 19:15 Insulin Aspart (NovoLOG SUPPLEMENTAL SCALE) 1 Q6HR SQ 01/10/17 06:00 01/29/17 23:00 Bisacodyl (Dulcolax Supp) 10 mg DAILY PRN RECTAL CONSTIPATION 01/10/17 09:15 Hold 01/10/17 09:56 Sennosides (Senna Liq) 8.8 mg BID PO 01/16/17 09:00 01/31/17 09:34 Glycerin (Glycerin Adult Supp) 2 gm BID PRN RECTAL CONSTIPATION 01/17/17 06:45 01/17/17 14:30 Sodium Chloride (NS Flush) DAILY IVF 01/17/17 12:30 01/31/17 09:00 Artificial Tears (Tears Naturale Opth Soln) 1 drop Q8HR EACH EYE 01/17/17 22:00 01/31/17 04:53 Chlorhexidine Gluconate 15 ml 15 ml BID@08,20 MT 01/17/17 20:00 01/31/17 09:34 Midazolam HCl 100 ml @ 0 mls/hr TITRATE IV 01/17/17 16:45 01/25/17 00:18 Fentanyl Citrate (fentaNYL DRIP) 250 ml @ 0 mls/hr TITRATE IV 01/17/17 16:45 01/29/17 05:32 Metoclopramide HCl (Reglan Inj) 5 mg Q8HR IV PUSH 01/18/17 06:45 01/31/17 04:52 Calcium Acetate (Phoslo) 667 mg TID PO 01/19/17 09:00 01/31/17 09:33 Lansoprazole 30 mg 30 mg DAILY NG 01/19/17 09:00 01/31/17 09:33 Sodium Chloride 1,000 ml @ 0 mls/hr Q0M PRN IV For Prime & Rinse Back 01/19/17 08:06 01/29/17 13:49 Sodium Chloride (NS 1000 ml Inj) 1,000 ml @ 0 mls/hr Q0M PRN IV WITH DIALYSIS 01/19/17 08:06 01/27/17 09:24 Mannitol (Mannitol Inj) 12.5 gm UNSCH PRN IV WITH DIALYSIS 01/19/17 08:15 01/26/17 15:26 Albumin Human (Albumin 25% Inj) 25 gm UNSCH PRN IV WITH DIALYSIS 01/19/17 08:15 01/29/17 13:50 Sodium Chloride (NS Flush) 5 ml UNSCH PRN IV FLUSH WITH DIALYSIS 01/19/17 08:15 01/27/17 09:22 Gentamicin Sulfate (Gentamicin (Dialysis) Inj) 20 mg UNSCH PRN IV WITH DIALYSIS 01/19/17 08:15 01/29/17 13:49 Acetaminophen (Tylenol) 650 mg UNSCH PRN PO for headach, pain, temp > 101F 01/19/17 08:15 01/29/17 12:07 Epoetin Rizwan 4000 units 4,000 units UNSCH PRN IV WITH DIALYSIS 01/19/17 08:15 01/29/17 13:49 Norepinephrine Bitartrate/Sodium Chloride (Levophed Inj/NS 250 ml Inj) 250 ml @ 0 mls/hr TITRATE IV 01/20/17 08:00 01/20/17 10:21 Methylprednisolone Sodium Succinate (SoluMEDROL INJ) 20 mg BID IV PUSH 01/24/17 21:00 01/31/17 09:34 Labetalol HCl (Trandate Inj) 10 mg Q1HR PRN IV PUSH SBP>160, DBP>90, HR>65 01/24/17 19:15 01/24/17 19:28 Hydralazine HCl 10 mg 10 mg Q1HR PRN IV PUSH SBP>160, DBP>90 01/24/17 19:15 01/29/17 09:33 Diltiazem HCl/ Sodium Chloride (Cardizem Inj/NS Inj) 125 ml @ 0 mls/hr TITRATE IV 01/29/17 08:45 01/31/17 09:32 Hyoscyamine Sulfate 0.25 mg 0.25 mg Q4H PRN PO secretions 01/29/17 11:00 01/29/17 12:07 Piperacillin Sod/ Tazobactam Sod (Zosyn 3.375 Gm Premix) 50 ml @ 100 mls/hr Q8H IV 01/29/17 13:00 01/31/17 04:53 Amiodarone HCl (Cordarone) 200 mg Q12HR PO 01/31/17 09:00 01/31/17 09:33 Carvedilol (Coreg) 12.5 mg Q12HR PO 01/31/17 09:00 01/31/17 09:33 Lactulose (Lactulose Liq) 30 ml DAILY PO 01/31/17 09:00 01/31/17 09:33 Objective Remarks GENERAL: Intubated, male, supine in bed SKIN: Warm and dry. hematoma right neck. HEAD: Normocephalic. dried crusted blood on nares but no active bleeding. EYES: No injection or drainage. NECK: Supple, trachea midline. CARDIOVASCULAR: tachycardic, irregular rhythm RESPIRATORY: scattered rhonchi. on mechanical ventilation GASTROINTESTINAL: Abdomen distended. EXTREMITIES: No cyanosis NEUROLOGICAL: intubated. sedated Assessment/Plan Problem List: (1) Thrombosis of left atrium without antecedent myocardial infarction Status: Acute Plan: 01/31/17: heparin gtt ordered but remains on hold due to bleeding risk. (2) Thrombocytopenia Status: Acute Plan: 01/31/17: platelets improving --likely d/t bleeding + acute illness. --CLIFFORD negative Assessment 71y/o male admitted in afib w/RVR. 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 --hematoma from central line placement in the right neck --epistaxis requiring nasal plugs Plan 1. monitor CBC 2. heparin gtt ordered but remains on hold due to bleeding risk--will defer to director geophysical laboratory for resumption Priya Fraga January 31, 2017 11:49
[2017-01-31] MEDS: HEPARIN-D5W INJ 250 ML IV SCH ×2 (12:11→20:48)
--- NOTE | 2017-01-31 12:35 | HHI.PR ---
Subjective Remarks Unresponsive and on Vent support ,now on PEEP 10. FIO2 at 70%. remains critical and CXR shows Mild congestion. Will have dialysis . No response to commands even off sedation. On Pressors Objective Vital Signs Date Time Temp Pulse Resp B/P Pulse Ox O2 Delivery O2 Flow Rate FiO2 01/31/17 12:00 117 01/31/17 12:00 113 141/56 141/56 01/31/17 12:00 65 01/31/17 11:42 89 70 01/31/17 10:00 124 01/31/17 09:04 97 100 01/31/17 08:00 124 135/51 114/59 01/31/17 08:00 65 01/31/17 08:00 71 01/31/17 07:39 94 65 01/31/17 06:00 76 01/31/17 04:19 91 65 01/31/17 04:00 74 01/31/17 04:00 99.1 74 18 110/69 90 114/59 01/31/17 04:00 65 01/31/17 04:00 74 110/69 114/59 01/31/17 02:00 76 01/31/17 00:19 91 65 01/31/17 00:00 99.2 75 18 108/67 91 105/55 01/31/17 00:00 75 01/31/17 00:00 65 01/31/17 00:00 75 108/67 105/55 01/30/17 22:00 79 01/30/17 20:04 93 65 01/30/17 20:00 113 140/64 117/61 01/30/17 20:00 99.0 113 19 140/64 92 142/67 01/30/17 20:00 65 01/30/17 20:00 113 01/30/17 18:00 80 01/30/17 18:00 80 18 115/66 93 131/67 01/30/17 17:00 78 18 105/61 92 115/59 01/30/17 16:00 65 01/30/17 16:00 78 110/64 117/63 01/30/17 16:00 78 01/30/17 16:00 99.1 78 18 110/64 92 117/63 01/30/17 15:31 92 65 01/30/17 15:01 75 18 107/59 91 109/58 01/30/17 14:00 114 01/30/17 14:00 118 18 151/75 94 99/78 01/30/17 13:45 118 18 98/76 94 01/30/17 13:01 98.9 75 18 103/61 91 80/58 01/30/17 13:00 98.9 75 18 103/61 91 79/58 I/O 01/30/17 01/30/17 01/30/17 01/31/17 01/31/17 01/31/17 07:00 15:00 23:00 07:00 15:00 23:00 Intake Total 724 ml 1464 ml 720 ml 590 ml Output Total 50 ml 130 ml 85 ml 50 ml Balance 674 ml 1334 ml 635 ml 540 ml Intake Oral 0 ml 0 ml IV Total 372 ml 804 ml 370 ml 285 ml Tube Feeding 322 ml 310 ml 290 ml 245 ml Packed Cells 250 ml Tube Irrigant 100 ml 60 ml 60 ml Other 30 ml Output Urine Total 50 ml 30 ml 35 ml 25 ml Stool Total 100 ml 50 ml 25 ml Result Diagram: 01/31/17 0415 01/31/17 0415 Objective Remarks GENERAL: This is an obese, elderly man who is intubated, assisting the ventilator. HEENT: Head is normocephalic. Pupils are reactive. NECK:Has a neck hematoma on right. Trachea is midline. CHEST: crackles at both lung bases.Occ wheeze heard. Decreased breath sounds at bases HEART: The heart sounds are irregular S1-S2. No murmur. ABDOMEN: Soft. Obese without masses. No organomegaly. EXTREMITIES: No edema. Decreased peripheral pulses. Reflexes are not elicited. The patient is lethargic SKIN: Dry and cool. Assessment and Plan Assessment and Plan IMPRESSION 1. Hypoxic respiratory failure. 2. Left lower lobe atelectasis and possible pneumonia with aspiration. 3. Left pleural effusion resolved. 4. Cardiomyopathy and congestive heart failure. 5. Obstructive sleep apnea. 6. Diabetes mellitus. 7. Atrial fibrillation. 8. Nasopharyngeal bleed Plan : 1. Wean FIO2 to keep sat >90. 2. PEEP at 10 CM, FIO2 to 70 % 3. Antibiotics per ID. 4. CBC ,BMP in am. 5. Nebs qid , duoneb. 6. Trach suction and Lavage 7. Tube feeds at 50 CC 8. Solumedrol 20 mg IV q12h 9. Dialysis in am 10. Plan Tracheostomy when stable Julius Burch MD January 31, 2017 12:35
[2017-01-31] MEDS: EPOETIN ALFA 4,000 UNITS/ML VIAL IV PRN (14:48)
[2017-01-31] MEDS: GENTAMICIN SULFATE (DIALYSIS USE ONLY) 20 MG/2 ML VIAL IV PRN (14:48)
[2017-01-31] MEDS: HEPARIN SODIUM - IV 10,000 UNITS/10 ML VIAL PRN (14:49)
--- NOTE | 2017-01-31 17:05 | HHI.PR ---
Review/Management Diagnosis encephalopathy Diagnosis/Plan: Subjective Subjective Comments No acute events reported Active Medications Current Medications Medications (Trade) Dose Ordered Sig/Claire Route Start Time Stop Time Status Last Admin Sodium Chloride 500 ml @ 30 mls/hr CONTINUOUS IV 01/05/17 10:00 Sodium Chloride 500 ml @ 30 mls/hr CONTINUOUS IV 01/05/17 09:15 (Diprivan 1000 Mg/100ml Inj) 100 ml @ 0 mls/hr TITRATE IV 01/05/17 21:45 01/31/17 14:40 (Colace Liq) 100 mg Q12HR PO 01/06/17 21:00 01/31/17 09:33 (NS Flush) 2 ml UNSCH PRN IV FLUSH 01/06/17 13:15 01/29/17 09:33 (NS Flush) 2 ml BID IV FLUSH 01/06/17 21:00 01/31/17 09:00 Miscellaneous Information 1 Q361D XX 01/06/17 13:15 (Chlorhexidine 2% Cloth) Taper DAILY@04 TOP 01/07/17 04:00 01/03/18 03:59 01/31/17 04:00 (Chlorhexidine 2% Cloth) 3 pack UNSCH PRN TOP 01/06/17 13:15 (D50w (Vial) Inj) 25 ml UNSCH PRN IV PUSH 01/09/17 07:15 01/21/17 19:15 (Glucagon Inj) 1 mg UNSCH PRN OTHER 01/09/17 07:15 (NovoLOG SUPPLEMENTAL SCALE) 1 Q6HR SQ 01/10/17 06:00 01/29/17 23:00 (Dulcolax Supp) 10 mg DAILY PRN RECTAL 01/10/17 09:15 Hold 01/10/17 09:56 (Afrin 0.05% Gilson [place]) 1 spray UNSCH PRN NASAL 01/14/17 15:45 (Senna Liq) 8.8 mg BID PO 01/16/17 09:00 01/31/17 09:34 (Glycerin Adult Supp) 2 gm BID PRN RECTAL 01/17/17 06:45 01/17/17 14:30 (NS Flush) DAILY IVF 01/17/17 12:30 01/31/17 09:00 (NS Flush) UNSCH PRN IVF 01/17/17 12:30 (Tears Naturale Opth Soln) 1 drop Q8HR EACH EYE 01/17/17 22:00 01/31/17 04:53 Chlorhexidine Gluconate 15 ml 15 ml BID@08,20 MT 01/17/17 20:00 01/31/17 09:34 Midazolam HCl 100 ml @ 0 mls/hr TITRATE IV 01/17/17 16:45 01/25/17 00:18 (fentaNYL DRIP) 250 ml @ 0 mls/hr TITRATE IV 01/17/17 16:45 01/29/17 05:32 (Reglan Inj) 5 mg Q8HR IV PUSH 01/18/17 06:45 01/31/17 04:52 (Phoslo) 667 mg TID PO 01/19/17 09:00 01/31/17 09:33 Lansoprazole 30 mg 30 mg DAILY NG 01/19/17 09:00 01/31/17 09:33 Sodium Chloride 1,000 ml @ 0 mls/hr Q0M PRN IV 01/19/17 08:06 01/29/17 13:49 Sodium Chloride 1,000 ml @ 200 mls/hr Q5H PRN IV 01/19/17 08:06 (NS 1000 ml Inj) 1,000 ml @ 0 mls/hr Q0M PRN IV 01/19/17 08:06 01/27/17 09:24 (Mannitol Inj) 12.5 gm UNSCH PRN IV 01/19/17 08:15 01/26/17 15:26 (Albumin 25% Inj) 25 gm UNSCH PRN IV 01/19/17 08:15 01/29/17 13:50 (NS Flush) 5 ml UNSCH PRN IV FLUSH 01/19/17 08:15 01/27/17 09:22 (Gentamicin (Dialysis) Inj) 20 mg UNSCH PRN IV 01/19/17 08:15 01/31/17 14:48 (Zofran Inj) 4 mg UNSCH PRN IV 01/19/17 08:15 (Tylenol) 650 mg UNSCH PRN PO 01/19/17 08:15 01/29/17 12:07 (Benadryl) 25 mg UNSCH PRN PO 01/19/17 08:15 (Nitrostat Sl) 0.4 mg UNSCH PRN SL 01/19/17 08:15 (Catapres) 0.1 mg UNSCH PRN PO 01/19/17 08:15 (Epogen Inj) 4,000 units UNSCH PRN IV 01/19/17 08:15 01/31/17 14:48 Gelatin 1 foam 1 foam UNSCH PRN TOP 01/19/17 08:15 (Levophed Inj/NS 250 ml Inj) 250 ml @ 0 mls/hr TITRATE IV 01/20/17 08:00 01/20/17 10:21 (Brethine Inj) 1 mg UNSCH PRN SQ 01/20/17 08:00 (SoluMEDROL INJ) 20 mg BID IV PUSH 01/24/17 21:00 01/31/17 09:34 (Trandate Inj) 10 mg Q1HR PRN IV PUSH 01/24/17 19:15 01/24/17 19:28 (Nitroglycerin 2% Oint) 2 inch Q6HR PRN TOPICAL 01/24/17 19:15 Hydralazine HCl 10 mg 10 mg Q1HR PRN IV PUSH 01/24/17 19:15 01/29/17 09:33 (Cardizem Inj/NS Inj) 125 ml @ 0 mls/hr TITRATE IV 01/29/17 08:45 01/31/17 09:32 (Levsin) 0.25 mg Q4H PRN PO 01/29/17 11:00 01/29/17 12:07 Nystatin 1 applic 1 applic Q12HR PRN TOPICAL 01/29/17 11:00 Piperacillin Sod/ Tazobactam Sod 50 ml @ 100 mls/hr Q8H IV 01/29/17 13:00 01/31/17 04:53 (Heparin-D5W Inj) 250 ml @ 0 mls/hr TITRATE IV 01/31/17 09:00 01/31/17 12:11 (Cordarone) 200 mg Q12HR PO 01/31/17 09:00 01/31/17 09:33 (Coreg) 12.5 mg Q12HR PO 01/31/17 09:00 01/31/17 09:33 (Lactulose Liq) 30 ml DAILY PO 01/31/17 09:00 01/31/17 09:33 (Heparin Inj) 8,000 units UNSCH PRN IVF 01/31/17 10:45 (Heparin Inj) 1,000 units Q1H PRN IVF 01/31/17 10:45 (Heparin Inj) UNSCH PRN .XX 01/31/17 10:45 01/31/17 14:49 Allergies Allergies Coded Allergies No Known Allergies (Unverified01/05/17) Exam I&O / VS 01/30/17 01/30/17 01/31/17 15:00 23:00 07:00 Intake Total 1464 ml 720 ml 590 ml Output Total 130 ml 85 ml 50 ml Balance 1334 ml 635 ml 540 ml Intake Oral 0 ml 0 ml IV Total 804 ml 370 ml 285 ml Tube Feeding 310 ml 290 ml 245 ml Packed Cells 250 ml Tube Irrigant 100 ml 60 ml 60 ml Output Urine Total 30 ml 35 ml 25 ml Stool Total 100 ml 50 ml 25 ml Vital Signs Date Time Temp Pulse Resp B/P Pulse Ox O2 Delivery O2 Flow Rate FiO2 01/31/17 15:22 94 90 01/31/17 14:00 102 01/31/17 12:00 117 01/31/17 12:00 113 141/56 141/56 01/31/17 12:00 65 01/31/17 11:42 89 70 01/31/17 10:00 124 01/31/17 09:04 97 100 01/31/17 08:00 124 135/51 114/59 01/31/17 08:00 65 01/31/17 08:00 71 01/31/17 07:39 94 65 01/31/17 06:00 76 01/31/17 04:19 91 65 01/31/17 04:00 74 01/31/17 04:00 99.1 74 18 110/69 90 114/59 01/31/17 04:00 65 01/31/17 04:00 74 110/69 114/59 01/31/17 02:00 76 01/31/17 00:19 91 65 01/31/17 00:00 99.2 75 18 108/67 91 105/55 01/31/17 00:00 75 01/31/17 00:00 65 01/31/17 00:00 75 108/67 105/55 01/30/17 22:00 79 01/30/17 20:04 93 65 01/30/17 20:00 113 140/64 117/61 01/30/17 20:00 99.0 113 19 140/64 92 142/67 01/30/17 20:00 65 01/30/17 20:00 113 01/30/17 18:00 80 01/30/17 18:00 80 18 115/66 93 131/67 Exam Comments sedated, nonresponsive perrl motor---no focal deficits, no posturing Objective Radiology Results CT brain--old basal ganglia lacunar strokes but no acute stroke Micro and Labs Laboratory Tests Test 01/31/17 04:15 White Blood Count 5.2 Red Blood Count 2.84 Hemoglobin 8.3 Hematocrit 25.2 Mean Corpuscular Volume 88.8 Mean Corpuscular Hemoglobin 29.1 Mean Corpuscular Hemoglobin 32.8 Concent Red Cell Distribution Width 16.9 Platelet Count 61 Mean Platelet Volume 10.9 Neutrophils (%) (Auto) 88.3 Lymphocytes (%) (Auto) 4.1 Monocytes (%) (Auto) 4.1 Eosinophils (%) (Auto) 3.2 Basophils (%) (Auto) 0.3 Neutrophils # (Auto) 4.6 Lymphocytes # (Auto) 0.2 Monocytes # (Auto) 0.2 Eosinophils # (Auto) 0.2 Basophils # (Auto) 0.0 CBC Comment DIFF FINAL Differential Comment Sodium Level 138 Potassium Level 3.8 Chloride Level 97 Carbon Dioxide Level 25.4 Anion Gap 16 Blood Urea Nitrogen 95 Creatinine 4.40 Estimat Glomerular Filtration 13 Rate Random Glucose 113 Calcium Level 7.7 Date/Time Procedure Status Source Growth 01/30/17 07:50 Urine Culture - Preliminary Resulted Urine Catheterized Urine NO GROWTH IN 24 HOURS. 01/30/17 07:50 Gram Stain - Final Resulted Sputum Endotracheal 01/30/17 07:50 Sputum Culture - Preliminary Resulted Sputum Endotracheal MODERATE GROWTH NORMAL RESPIRATORY FL... 01/29/17 14:10 Aerobic Blood Culture - Preliminary Resulted Blood Peripheral NO GROWTH IN 2 DAYS 01/29/17 14:10 Anaerobic Blood Culture - Preliminary Resulted Blood Peripheral NO GROWTH IN 2 DAYS 01/29/17 12:39 Aerobic Blood Culture Received Blood Peripheral Pending 01/29/17 12:39 Anaerobic Blood Culture Received Blood Peripheral Pending Diagnostic Tests EEG---generalized slowing c/w encephalopathy Rigo Cole PhD MD January 31, 2017 17:05
--- NOTE | 2017-01-31 17:36 | HHI.PR ---
Subjective Remarks Unresponsive and on Vent support ,now on PEEP 10. FIO2 at 70%. remains critical . On pressors. Had dialysis . No response to commands even off sedation. Objective Vital Signs Date Time Temp Pulse Resp B/P Pulse Ox O2 Delivery O2 Flow Rate FiO2 01/31/17 15:22 94 90 01/31/17 14:00 102 01/31/17 12:00 117 01/31/17 12:00 113 141/56 141/56 01/31/17 12:00 65 01/31/17 11:42 89 70 01/31/17 10:00 124 01/31/17 09:04 97 100 01/31/17 08:00 124 135/51 114/59 01/31/17 08:00 65 01/31/17 08:00 71 01/31/17 07:39 94 65 01/31/17 06:00 76 01/31/17 04:19 91 65 01/31/17 04:00 74 01/31/17 04:00 99.1 74 18 110/69 90 114/59 01/31/17 04:00 65 01/31/17 04:00 74 110/69 114/59 01/31/17 02:00 76 01/31/17 00:19 91 65 01/31/17 00:00 99.2 75 18 108/67 91 105/55 01/31/17 00:00 75 01/31/17 00:00 65 01/31/17 00:00 75 108/67 105/55 01/30/17 22:00 79 01/30/17 20:04 93 65 01/30/17 20:00 113 140/64 117/61 01/30/17 20:00 99.0 113 19 140/64 92 142/67 01/30/17 20:00 65 01/30/17 20:00 113 01/30/17 18:00 80 01/30/17 18:00 80 18 115/66 93 131/67 I/O 01/30/17 01/30/17 01/30/17 01/31/17 01/31/17 01/31/17 07:00 15:00 23:00 07:00 15:00 23:00 Intake Total 724 ml 1464 ml 720 ml 590 ml Output Total 50 ml 130 ml 85 ml 50 ml Balance 674 ml 1334 ml 635 ml 540 ml Intake Oral 0 ml 0 ml IV Total 372 ml 804 ml 370 ml 285 ml Tube Feeding 322 ml 310 ml 290 ml 245 ml Packed Cells 250 ml Tube Irrigant 100 ml 60 ml 60 ml Other 30 ml Output Urine Total 50 ml 30 ml 35 ml 25 ml Stool Total 100 ml 50 ml 25 ml Result Diagram: 01/31/1741401/31/17414 Objective Remarks GENERAL: This is an obese, elderly man who is intubated,and unresponsive HEENT: Head is normocephalic. Pupils are reactive. NECK:Has a neck hematoma on right. Trachea is midline. CHEST: crackles at both lung bases. Decreased breath sounds at bases HEART: The heart sounds are irregular S1-S2. No murmur. ABDOMEN: Soft. Obese without masses. No organomegaly. EXTREMITIES: No edema. Decreased peripheral pulses. Reflexes are not elicited. The patient is lethargic SKIN: Dry and cool. Assessment and Plan Assessment and Plan IMPRESSION 1. Hypoxic respiratory failure. 2. Left lower lobe atelectasis and possible pneumonia with aspiration. 3. Left pleural effusion resolved. 4. Cardiomyopathy and congestive heart failure. 5. Obstructive sleep apnea. 6. Diabetes mellitus. 7. Atrial fibrillation. 8. Nasopharyngeal bleed Plan : 1. Wean FIO2 to keep sat >90. 2. PEEP at 10 CM, FIO2 to 65 % 3. Antibiotics per ID. 4. CBC ,BMP in am. 5. Nebs qid , duoneb. 6. Trach suction and Lavage 7. Tube feeds at 50 CC 8. D/C Solumedrol and add Prednisone 20 mg daily 9. Dialysis per renal. 10. Plan Tracheostomy when stable Julius Burch MD January 31, 2017 17:36
[2017-01-31] MEDS: predniSONE 10 MG TAB PO SCH (20:30)
[2017-02-01] VITALS (19 sets, daily range): BP systolic 108–150; BP diastolic 56–94; PULSE 77–145; RESP 18–38; TEMP 97.8–99.2; O2SAT 94–100
[2017-02-01 01:04] LABS: APTT (PATIENT) 47.4 SEC (24.3-30.1)
[2017-02-01] MEDS: RESP: ALBUTEROL 2.5 MG/IPRATROPIUM 0.5 MG NEB (SCH) NEB ×6 (03:04→23:12)
[2017-02-01 03:43] LABS: BASOPHIL % 0.3 % (0.0-2.0); EOSINOPHIL % 0.1 % (0.0-4.0); HEMATOCRIT 27.5 % (39.0-51.0); LYMPHOCYTE # 0.1 TH/MM3 (1.0-4.8); MEAN CELL VOLUME 88.6 FL (80.0-100.0); MEAN CORPUSCULAR HEMOGLOBIN 30.1 PG (27.0-34.0); MONO % 3.5 % (0.0-8.0); NEUT % 93.1 % (16.0-70.0); PLATELET COUNT 79 TH/MM3 (150-450); RED CELL DISTRIBUTION WIDTH 17.2 % (11.6-17.2); WHITE BLOOD COUNT 4.3 TH/MM3 (4.0-11.0)
[2017-02-01 04:00] LABS: ALT (GPT) 49 U/L (12-78); ANION GAP 14 MEQ/L (5-15); AST (GOT) 16 U/L (15-37); BICARBONATE 27.4 MEQ/L (21.0-32.0); BLOOD UREA NITROGEN 73 MG/DL (7-18); CHLORIDE 98 MEQ/L (98-107); GLOMERULAR FILTRATION RATE 15 ML/MIN (>89); MAGNESIUM 2.5 MG/DL (1.5-2.5); SODIUM (NA) 139 MEQ/L (136-145)
[2017-02-01] MEDS: CHLORHEXIDINE GLUCONATE 2 % 1 PACK (2 CLOTHS) TOP SCH (04:00)
[2017-02-01 04:02] LABS: ALKALINE PHOSPHATASE 77 U/L (45-117); TOTAL BILIRUBIN ADULT 0.8 MG/DL (0.2-1.0)
[2017-02-01 04:13] LABS: HEMO FLAGS AUTO DIFF
[2017-02-01 05:27] LABS: SCAN/DIFF AUTO DIFF CONFIRMED
[2017-02-01 05:28] LABS: PLATELET ESTIMATE SMEAR LOW (NORMAL); PLATELET MORPHOLOGY ENLARGED (NORMAL)
[2017-02-01] MEDS: INSULIN ASPART SUPPLEMENTAL SCALE SQ SCH ×4 (06:00→23:35)
[2017-02-01] MEDS: PIPERACIL-TAZO 3.375 GM PREMIX 50 ML IV SCH ×2 (06:04→12:19)
[2017-02-01] MEDS: ARTIFICIAL TEARS OPTH SOLN 15 ML BTL EACH EYE SCH ×3 (06:04→20:24)
[2017-02-01] MEDS: METOCLOPRAMIDE HCL 10 MG/2 ML VIAL IV PUSH SCH ×3 (06:04→21:40)
[2017-02-01] MEDS: PROPOFOL 1000 MG/100 ML IV SCH ×3 (06:11→18:06)
[2017-02-01 06:34] LABS: APTT (PATIENT) 55.5 SEC (24.3-30.1)
--- NOTE | 2017-02-01 07:01 | RADRPT ---
EXAM DATE/TIME: 02/01/2017 06:38 [place] COMPARISON: CHEST SINGLE AP, January 31, 2017, 4:11. INDICATIONS : Shortness of breath, possible pulmonary disease. MEDICAL HISTORY : Hypertension. SURGICAL HISTORY : Coronary artery stent. ENCOUNTER: Subsequent ACUITY: 1 month PAIN SCORE: Non-responsive. LOCATION: Bilateral chest FINDINGS: Endotracheal tube, nasogastric tube and left subclavian central line are stable. There has been sligh t improvement in aeration with decreasing confluence of bilateral hazy pleuroparenchymal opacities. C ardiac contour is grossly stable. CONCLUSION: Improving aeration Daniel Cantu MD on February 01, 2017 at 6:59 Board Certified Radiologist. This report was verified electronically.
[2017-02-01] MEDS: CHLORHEXIDINE 0.12% (ORAL KIT) 15 ML CUP MT SCH ×2 (07:45→20:24)
--- NOTE | 2017-02-01 07:53 | HHI.CCPN ---
Subjective Remarks/Hospital Course This is a 71-year-old gentleman that presented to [facility] secondary to dyspnea and atrial fibrillation with RVR. The patient has a medical history significant for obesity and hypertension. During his hospitalization at [facility], the patient underwent an echocardiogram which showed severe systolic dysfunction with an ejection fraction of 1015 % the patient then underwent a cardiac catheterization showing significance with left circumflex 90%. The patient underwent multiple attempts of unsuccessful synchronized cardioversion. The patient also underwent medical management with beta blockers, and calcium channel blockers that were also unsuccessful. The patient was transferred to [facility] for cardiac ablation with Dr. Jimenez. The patient was scheduled for cardiac ablation, the procedure was canceled. The patient required emergent intubation and required ventilator management a VLADIMIR was performed showing a clot in the left atrial appendage. The patient was placed on IV Cardizem, and an amiodarone infusion. Critical Care medicine was consulted for management. 01/06: Tmax 97.4. The patient remained on elevated vent settings with FiO2 of 1.0 overnight, PEEP requirements were increased to 8, to maintain a PaO2 of greater than [address] scan of the chest was obtained which noted bilateral effusions small, basilar consolidations right worse than the left, and a loculated area representing a possible pneumonia process, empyema, as well as aspiration or just loculated fluid as well as a small pericardial effusion. The patient continues on Cardizem and amiodarone infusions with a heart rate overnight 80s -115. The patient's vasopressor requirements of phenylephrine diminished to 20 mcgs. 01/07: Tmax 99.2. Yesterday the central line was placed for vasoactive medications and CVP monitoring, small hematoma noted near the right IJ area soft no compression of major vessels, with resolution of bleeding in that area. Phenylephrine was discontinued yesterday. The patient heart rate remains today [id number]. Cardizem infusion has been discontinued in the setting of EF of 10-15%. Esmolol infusion to be initiated this a.m.. Coumadin was initiated last night now placed on hold due to patient bleeding from nasopharynx and oropharynx. INR currently 1.2. Plan for CT thorax tomorrow, with possible IR intervention versus CVT consultation for possible empyema the patient will remain on heparin infusion, and transition onto Coumadin after any potential procedures to be initiated. Chest x-ray slightly improved FiO2 decreasing now 70%. Sedation vacation yesterday revealed GCS 11 T, patient alert responsive following commands. With initiation of antibiotics, leukocytosis resolved. ID consulted Dr. Gage. Blood cultures are pending. 01/08: Patient's heart rate 110-[address] scan of the chest imaging revealed fluid. Plan for thoracentesis and and studies of pleural fluid , this afternoon. The patient remains on amiodarone and heparin infusions, per cardiology. Heparin held, for thoracentesis this afternoon, and then will be resumed. The patient was maintained on CPAP trial for approximately one hour yesterday. During sedation vacation patient was alert following commands recognizing family. Plan to resume CPAP trials this afternoon post thoracentesis. 01/09: The patient underwent CT-guided thoracentesis yesterday , on the right side noted 400 cc of fluid was removed , with specimens ordered to be sent for evaluation .This morning chest x-ray performed showing almost complete opacification of the left lung. FiO2 requirements increase patient on FiO2 of 80%, O2 sat 94%. Left chest ultrasound obtained revealing no fluid. Consent obtained BAL performed, revealing emanating from the nearest previously ( patient was noted to have epistaxis with initiation of heparin on 01/06). Blood clots noted in left lung upon visualization with bronchoscopy, saline lavage applied, minimal blood clots removed. The patient was initiated on Mucomyst 10% , and pulmonology was consulted. Dr. Tasia Lama following. The patient shows no signs or evidence of bleeding actively, plan to consult ENT if signs of active bleeding become evident. Hemoglobin remains stable.The patient converted into sinus rhythm is today afternoon. Cardiology management of medications, IV amiodarone discontinued this afternoon. 01/10: Tmax 99.0. Chest x-ray shows slight improvement of left lung today. Plan for repeat bronchoscopy per Dr. Burch this a.m, and the patient continues on Mucomyst. The patient's cardiac rhythm reverted to A. fib last evening, amiodarone IV infusion reinstituted per Dr. Jimenez. 01/11: TMax 100.0. Much improved chest x-ray this morning. The patient continues in A. fib with a rate of 120, he continues on amiodarone, heparin infusion per cardiology. No evidence of active bleeding. 5/12 Patient Remains sedated with Diprivan, intubated. T:99.9. On Neosyn 15 mics , heparin and Amio drips. In Afib with RRV. Patient s/p repeat bronch with BAL yesterday by Dr. Burch and ETT replacement by Dr. Sanchez. On PC/AC with PEEP:14 , FIO2 100%. 01/13: TMax 100.2. Last night the nurse reported that the patient had a small amount of epistaxis, and blood in the oropharynx noted. The area continued to bleed during the night. ENT has been consulted. Heparin has been placed on hold , ASA has been discontinued in the setting of acute renal failure. The patient continues on amiodarone infusion , heart rate 120's. Neosynephrine has been discontinued, and Levophed instituted. Creatinine noted to be 4.5. As per report , states patient does not want dialysis. The patient continues on elevated PEEP of 14. 5/14: Heparin was discontinued yesterday in the setting of continued bleeding in the nasal/ oropharyngeal region. ENT was consulted and nasal packing was applied. During the night the patient still had small noted amount of bleeding from the oropharyngeal area plan today for oropharyngeal packing. Hgb 9, will transfuse .The patient was placed on norepinephrine for currently at 1-2 mcgs per minute. PEEP has been decreased to 12, with adequate oxygenation a PaO2 of 71. 5/15: Tmax 99.0. The patient continues to be anemic and thrombocytopenic, contributory factors being uremia. The patient's /family decided to pursue hemodialysis at this point. The patient received 1 unit of packed red blood cells yesterday. The patient was initiated on dialysis yesterday afternoon, with approximately 3 L removed. Nasal gauze packing removed and placement of nasal balloons by ENT yesterday. Oral gauze packing to be removed today. The patient received 2 separate doses of digoxin, A. fib heart rate ranging 80- < 120. The patient continues to have high ventilatory requirements, FiO2 was increased throughout the night to currently 80%, to maintain O2 sat greater than 92%. 01/16: FiO2 at 85%. Large clots removed from oropharynx overnight. Transfused 2 units PRBCs yesterday. No bowel movement. Tolerating tube feeds at 40 cc now with Nepro 01/17: Maximum 100.6. CURRENT TEMPERATURE 98.1. Central line pulled out yesterday. Flolan initiated yesterday and FiO2 down to 65%. Tolerating tube feeds. No bowel movement. Arousable weakly follow commands yesterday 01/18: Tmax 99.8. Currently afebrile. Initially, hemoptysis with desaturation requiring bronchoscopy. See bronchoscopy note. Roto-Rest bed ordered. FiO2 from 100-70% currently. On Nimbex drip. No BM. Tolerating tube feeds. 01/19: Afebrile. FiO2 down to 40%. We will attempt a wean Flolan today. On Nimbex drip. Positive BM yesterday. Tolerating tube feeds. 01/20: FiO2 back to 100%. Flolan "fell off "overnight. Ventilator adjusted back to 100%. Flolan reinstituted. Chest x-ray and ABG pending. Tolerating tube feeds. Positive BM. Afebrile. 01/21: Intolerant of tube feeding. KUB pending. Afebrile. Bleeding from bilateral nares and Alanis overnight. Argatroban has been held. Positive BM. 01/22 Patient is sedated with Fentanyl , versed in addition he is on Nimbex. Receiving HD. TF on hold for high residuals. 01/23 Patient is on Roto prone bed sedated and intubated. s/p HD yesterday with removal 3L. On Nimbex, afebrile. 01/24 Patient remains sedated with Versed, Fentanyl and remains on Nimbex. On PC/ AC with PEEP: 10, FIO2 down 40%. For HD today. Afebrile. 01/25 Patient remains sedated and intubated . On PC/AC with PEEP: 10 and FIO2 50% . s/p HD yesterday with removal 4.5L. Afebrile. 01/26 Patient is sedated with Fentanyl off versed and Nimbex. s/p bronch yesterday by Dr. Burch. On PRVC/AC with PEEP: 10 and FIO2 down to 50% s/p HD yesterday with removal 1.5. For another HD session today. 01/27 Patient is sedated with Fentanyl and intubated, s/p HD yesterday with removal 4L. Afebrile. On PRVC/AC mode with PEEP; 10 and FIO2 45% 01/28 Patient remains sedated with Fentanyl and intubated. s/p HD yesterday with removal 3L. Placed on Amio drip yesterday for Afib with RVR, 01/29 No acute events overnight. Sedated with Fentanyl and intubated. Afebrile. On PRVC/AC with PEEP: 10 and FIO2 70% decreased to 60% 01/30 No events overnight. Sedated with Diprivan on Amio drip and Cardizem 5mg/ hr. s/p HD yesterday with removal 2L. Spiked fever yesterday with T 101.7 .On PRVC/AC with PEEP: 10, FIO2 65% 01/31: Afebrile. FiO2 at 65%. PEEP at 10. Heart rate between 70 and 130. Cardizem drip at 15 mg an hour. For CT head today. Copious amounts of oral secretions. Minimal via suctioning Subjective: 02/01: Currently afebrile. Heart rate consistently in the 120s to 140s. Cardizem drip back up to 15 mg an hour. More awake and withdrawing right upper , bilateral lower extremities. Moving head side to side.. Objective Vital Signs Date Time Temp Pulse Resp B/P Pulse Ox O2 Delivery O2 Flow Rate FiO2 02/01/17 06:00 128 02/01/17 04:00 60 02/01/17 04:00 123/69 150/78 02/01/17 04:00 98.6 38 100 Intake and Output 01/31/17 01/31/17 02/01/17 08:00 16:00 00:00 Intake Total 590 ml 766 ml 521 ml Output Total 50 ml 120 ml 3075 ml Balance 540 ml 646 ml -2554 ml Result Diagram: 02/01/17 0320 02/01/17 0320 Other Results Microbiology Date/Time Procedure Status Source Growth 01/30/17 07:50 Urine Culture - Preliminary Resulted Urine Catheterized Urine NO GROWTH IN 24 HOURS. 01/30/17 07:50 Gram Stain - Final Resulted Sputum Endotracheal 01/30/17 07:50 Sputum Culture - Preliminary Resulted Sputum Endotracheal MODERATE GROWTH NORMAL RESPIRATORY FL... 01/29/17 14:10 Aerobic Blood Culture - Preliminary Resulted Blood Peripheral NO GROWTH IN 2 DAYS 01/29/17 14:10 Anaerobic Blood Culture - Preliminary Resulted Blood Peripheral NO GROWTH IN 2 DAYS 01/29/17 12:39 Aerobic Blood Culture Received Blood Peripheral Pending 01/29/17 12:39 Anaerobic Blood Culture Received Blood Peripheral Pending Imaging Last Impressions Chest X-Ray 02/01/17 0600 Signed Impressions: Service Date/Time: February 06:38 - CONCLUSION: Improving aeration Daniel Cantu MD Head CT 01/31/17 0000 Signed Impressions: Service Date/Time: Tuesday, January 31, 2017 08:42 - CONCLUSION: 1. 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 Right basal ganglia lacunar infarct is age indeterminate. 2. Maurice sinusitis along with opacification of the middle ears and mastoid air cells bilaterally. Geovanny Lynch MD Abdomen X-Ray 01/21/17 0000 Signed Impressions: Service Date/Time: Saturday, January 21, 2017 08:41 - CONCLUSION: Nondiagnostic study. Gurvinder Collier MD Renal Ultrasound 01/09/17 0000 Signed Impressions: Service Date/Time: Monday, January 09, 2017 13:56 - CONCLUSION: 1. Right kidney is sonographically normal. 2. Benign-appearing 2.4 x 1.5 cm cortical cyst in the midpole of the left kidney. 3. Subcentimeter echogenic, non-shadowing foci in the midpole of the left kidney would be unusual for stones and may represent ectopic hilar fat. No hydronephrosis. 4. Urinary bladder is decompressed with a Alanis catheter. Douglas Ward MD Chest Ultrasound 01/09/17 0000 Signed Impressions: Service Date/Time: Monday, January 09, 2017 08:18 - CONCLUSION: No left-sided pleural effusion. The abnormality in the left chest on chest radiograph is likely related to mucous plugging. When patient had a CT scan yesterday the left lung was well aerated. Edgardo Mayorga MD Chest CT 01/08/17 0600 Signed Impressions: Service Date/Time: Sunday, January 08, 2017 08:46 - CONCLUSION: Massive cardiomegaly with panchamber enlargement extensive coronary calcifications. Stable trace pericardial effusion. Increasing bibasilar consolidative changes with minimal bilateral pleural effusions.. Rhys Fritz MD FACR Thoracentesis 01/08/17 0000 Signed Impressions: Service Date/Time: Sunday, January 08, 2017 16:08 - CONCLUSION: Uncomplicated CT-guided thoracentesis on the right. The left sided thoracentesis was not performed as there was no significant left pleural fluid. The abnormality on most recent chest x-ray was secondary to mucous plugging and left sided atelectasis. Edgardo Mayorga MD Objective Remarks GENERAL: 71-year-old male, critically ill-appearing obese male lying in bed in no acute distress SKIN: Warm and dry. No rash. Right heel ulcer 2 x 2 centimeters and evolving stage 0 sacral decubitus ulcer HEAD: Atraumatic. Normocephalic. EYES: Pupils equal and round, 5mm and reactive to 4 mm. No scleral icterus. No injection or drainage. ENT: Patient has Rhino Rocket in left nares only. No active bleeding. Clear secretions from mouth with suctioning NECK: Trachea midline. Unable to assess JVD secondary to body habitus. Large right-sided neck hematoma without tracheal shift appears to be softer and less defined than 1 week ago. Evolving ecchymoses. Left subclavian central line is clean dry and intact CARDIOVASCULAR: Tachycardia, IR. S1, S2 no S4 without murmur RESPIRATORY: Diminished breath sounds throughout especially in the bases bilaterally. Few crackles in bases bilaterally. Breath sounds equal bilaterally. GASTROINTESTINAL: Abdomen soft, obese non-tender, nondistended. No active bowel sounds MUSCULOSKELETAL: Extremities with 1+ peripheral edema. No obvious deformities. Posterior tibialis is palpable bilaterally. Right femoral Vas-Cath is clean dry and intact NEUROLOGICAL: Positive corneal reflex. Positive gag. Currently withdrawing to pain bilateral lower extremities and right upper extremity. Could not elicit response and left upper extremity. Upgoing toes. Urinary Catheter: Yes Assessment to: Continue Alanis insert reason: Prolonged Immobilization Date of Insertion: January 05, 2017 Vascular Central Line Catheter: Yes Assessment to: Continue Date of Insertion: January 17, 2017 Line: Central Venous Catheter Side: Left Location: Subclavian, Jugular A/P Assessment and Plan Neuro/Psych: Epistaxis Continue with Diprivan currently at 5 mics grams per kilogram per minute for sedation while intubated Goal of RASS -2 Daily sedation vacation Patient doesn't follow commands off sedation. Completed EEG 01/30 revealed no epileptiform activity. Severe encephalopathy. CT brain 01/31 revealed bilateral basal ganglia and left thalamic CVA. Right basal ganglia CVA indeterminate Dr. Cole/neurology following 01/12 New onset epistaxis, heparin discontinued until 01/31 but restarted Epistaxis-ENT consulted-nasal balloons in situ maintain balloons until 01/20 per ENT recommendation. Removed 01/20 but resumed bleeding so replaced- 01/21 Both Rhino Rocket balloon removed ENT has followed- Dr. Byrd. Respiratory: Acute hypoxic respiratory failure Left lung consolidation 2/2 previous event of epistaxis, clotted blood left lung -resolved SONU Probable aspiration Possible multilobar [id number] Bilateral pleural effusions Continue with vent support keep sat >92% On PRVC/AC RR 18, TV 600, IT:1.3, PEEP: 10, FIO2 5%. Wean FiO2 to keep sats greater than equal to 92% Will need perc trach when stable and platelet count recovers. Currently on DuoNeb scheduled every 6 hours with albuterol every 2 hours as needed ICU vent bundle. Pulmonology following- Dr. Burch Solu-Medrol 20 mg IV BID, off Flolan 01/08-right CT-guided thoracentesis-400 cc removed, sent for cytology and cultures s/p bronch . by- Dr. 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 No obvious source of bleeding. s/p bronch 01/[address] Burch. -minimal secretions. CV: A. fib with RVR Left atrial appendage thrombus Cardiomyopathy Acute Systolic CHF Hypertension Dyslipidemia Continue with Amio at 200 mg twice a day, Coreg 12.5 mg BID. Monitor HR and BP keep MAP>65mmHg On Cardizem drip 15mg/hr for rate control. 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 Systolic function reduced. Diffuse hyperkinesis. 12/26 [facility] severe systolic dysfunction EF 1015%, mitral valve mild to moderate regurg, LAE, tricuspid Valve-mild to moderate regurg, small pericardial effusion, 12/19 cardiac cath left circumflex 90% occlusion Management per Cardiology -Dr. Jimenez Patient is at high risk of bleeding with anticoagulation Renal: Acute on chronic kidney disease stage IV Nephrology following-Dr. Hahn Monitor renal function, I/O's, avoid nephrotoxins. Vascath placement Hemodialysis initiated 01/14. s/p HD 01/31 with removal 3L FEN/GI: Morbid obesity Hyperphosphatemia On Tube feeds- Nepro @50ml/hr KUB abdomen 01/21: Non diagnostic study Prevacid for GI prophylaxis Bowel Colace/Senokot twice a day. On Reglan 5 every 8 and erythromycin 200 every 8 for bowel motility/prokinetic PhosLo 667 3 times a day for hyperphosphatemia Heme: Normocytic anemia Thrombocytopenia Transfused 6 units PRBCs since admission Weakly positive HIT panel-CLIFFORD is negative. Repeat 01/30 with HIT negative Due to gross hematuria and epistaxis all anticoagulants on hold. Heparin drip currently restarted. Keep PTT ideally between 40 and 60 Hematology is following ID: Likely aspiration pneumonia 01/06 urine, sputum, blood cultures-NGTD 01/06-Legionella urine antigen negative 01/09 - bronchoscopy - yeast/ID to follow 01/12 - blood cultures 2 - no growth 01/20 - blood cultures 2 - staph Epi 09/06 bottles- likely contaminant 01/29 - blood cultures 2 -no growth 01/30 - sputum -immature growth 01/30 - urine -no growth Continue with abx (Zosyn) Given Vanco x1 dose 01/29-Dr. Gage following, Endocrine: Close monitoring per ICU protocol-medium dose regimen -- SSI Accu-Cheks every 6 hours for glycemic control Prophylaxis: GI Prophylaxis Prevacid 30 mg at night DVT Prophylaxis -- SCDs, Lines: Peripheral IV's. Right femoral HD catheter 01/19, Left subclavian CVL 01/17 Patient developed hematoma on right side of his neck from previous attempt of central line placement. Dispo: is Olena Muhammad [phone] Poor prognosis given resp failure, severe cardiomyopathy with left atrial thrombus, renal failure on HD, encephalopathy, multiorgan injury. Critical Care: The total critical care time was 35 minutes. Time to perform other separately billable procedures was not included in the critical care time. Koby Cagle MD Feb 01, 2017 07:53
[2017-02-01] MEDS ORDERED: METOPROLOL TARTRATE 5 MG/5 ML VIAL IV PUSH ONE (08:00)
[2017-02-01] MEDS ORDERED: DIGOXIN 0.5 MG/2 ML VIAL IV PUSH ONE (08:00)
[2017-02-01] MEDS: SODIUM CHLORIDE 0.9% FLUSH 10 ML FLUSH IVF SCH (08:13)
[2017-02-01] MEDS: SODIUM CHLORIDE 0.9% FLUSH 10 ML FLUSH IV FLUSH SCH ×2 (08:13→20:23)
[2017-02-01] MEDS: AMIODARONE 200 MG TAB PO SCH ×2 (08:14→20:23)
[2017-02-01] MEDS: SENNOSIDES SYRUP 8.8 MG/5 ML CUP PO SCH ×2 (08:14→20:23)
[2017-02-01] MEDS: LANSOPRAZOLE SOLUTAB 30 MG TAB NG SCH (08:14)
[2017-02-01] MEDS: predniSONE 10 MG TAB PO SCH ×2 (08:14→20:23)
[2017-02-01] MEDS: CALCIUM ACETATE 667 MG CAP PO SCH ×3 (08:14→18:05)
[2017-02-01] MEDS: LACTULOSE SYRUP 20 GM/30 ML CUP PO SCH (08:14)
[2017-02-01] MEDS: DOCUSATE SODIUM 100 MG/10 ML UDC PO SCH ×2 (08:14→20:23)
[2017-02-01] MEDS: CARVEDILOL 12.5 MG TAB PO SCH ×2 (08:14→20:23)
[2017-02-01] MEDS: SODIUM CHLORIDE 0.9% FLUSH 10 ML FLUSH IV FLUSH PRN (08:15)
--- NOTE | 2017-02-01 10:52 | HHI.NPPN ---
Subjective General Problems: Anemia, Edema, Heart Disease Renal Failure: Acute History of Present Illness 71-year-old the white male the who is transferred from [facility] to [facility] due to atrial fibrillation with fast ventricular response, he was in the heart catheterization lab and became unstable has to intubated the patient has chronic kidney disease, Cardiomyopathy ejection fraction of only 15% and has severe dilated cardiomyopathy with the clot in left atrium he is on heparin drip and currently on ventilator. Additional Remarks Patient remain on the vent. intubated Objective Data Data 01/31/17 02/01/17 19:00 07:00 Intake Total 766 ml 1048 ml Output Total 3120 ml 165 ml Balance -2354 ml 883 ml Intake Oral 0 ml IV Total 541 ml 471 ml Tube Feeding 225 ml 577 ml Output Urine Total 100 ml 90 ml Stool Total 20 ml 75 ml Hemodialysis 3000 ml Vital Signs Date Time Temp Pulse Resp B/P Pulse Ox O2 Delivery O2 Flow Rate FiO2 02/01/17 08:30 82 141/94 118/56 02/01/17 08:30 82 20 141/94 136/66 02/01/17 08:00 50 02/01/17 08:00 145 02/01/17 08:00 145 141/94 118/56 02/01/17 08:00 98.0 145 20 141/94 97 118/56 02/01/17 07:48 98 50 02/01/17 06:00 128 02/01/17 04:00 60 02/01/17 04:00 129 123/69 150/78 02/01/17 04:00 98.6 129 38 123/69 100 150/79 02/01/17 04:00 129 02/01/17 03:57 94 60 02/01/17 02:00 133 02/01/17 00:00 118 145/84 129/64 02/01/17 00:00 60 02/01/17 00:00 118 02/01/17 00:00 98.8 118 19 145/84 94 129/64 01/31/17 23:20 94 60 01/31/17 22:00 134 01/31/17 20:01 96 60 01/31/17 20:00 110 01/31/17 20:00 60 01/31/17 20:00 99.0 101 20 137/81 96 126/52 01/31/17 20:00 110 137/81 125/52 01/31/17 18:00 110 01/31/17 16:00 122 123/53 123/53 01/31/17 16:00 99.1 91 17 107/70 94 01/31/17 16:00 105 01/31/17 16:00 65 01/31/17 15:22 94 90 01/31/17 14:00 102 01/31/17 12:00 99.6 89 17 102/71 92 01/31/17 12:00 117 01/31/17 12:00 113 141/56 141/56 01/31/17 12:00 65 01/31/17 11:42 89 70 -: 02/01/17 0320 02/01/17 0320 Physical Exam General Appearance: Well Developed Eyes Eye Exam: Pupils Equal Throat Throat Exam: Oral Mucosa [place] & Moist Pulmonary Resp Exam: Rhonchi, Decreased Bases, Diminished Breath Sounds Cardiology CV Exam: Arrhythmia Gastrointestinal/Abdomen GI Exam: Soft, Non-Tender, Distended Extremeties Extremities Exam: Moderate Edema, Pitting Edema, Dependent Edema Neurologic Neuro Exam: Sedated Assessment/Plan Problem List: (1) Acute renal failure Plan: Patient urine out put is low He has poor ejection fraction and is intubated Severe cardiomyopathy prognosis is guarded. hemodialysis last UF 2 L dialysis issues with clotting, repeat HIT negative can use Heparin per Hematology during dialysis CT Head Lacunar infarcts cerebellum, L thalamus infarct, CVA multiple co morbidities, old per Neurology more awake moves toes not upper extremities Hemodialysis yesterday 3 L UF Urine out put remain low. BUN and Creatinine better post dialysis (2) CKD (chronic kidney disease) stage 4, GFR 15-29 ml/min (3) CHF (congestive heart failure) Plan: Severe cardiomyopathy EF 15% (4) Atrial fibrillation with rapid ventricular response Plan: Has a blood clot in LA appendage (5) Thrombocytopenia Plan: platelets low Problem Qualifiers (1) CHF (congestive heart failure): Christa Hahn MD Feb 01, 2017 10:52
--- NOTE | 2017-02-01 11:18 | PD.ONC.PN ---
Subjective Subjective Remarks Afebrile overnight. Patient remains intubated heparin drip resumed yesterday no bleeding both rhino rockets have been removed Objective Data Date Time Temp Pulse Resp B/P Pulse Ox O2 Delivery O2 Flow Rate FiO2 02/01/17 08:30 82 141/94 118/56 02/01/17 08:30 82 20 141/94 136/66 02/01/17 08:00 50 02/01/17 08:00 145 02/01/17 08:00 145 141/94 118/56 02/01/17 08:00 98.0 145 20 141/94 97 118/56 02/01/17 07:48 98 50 02/01/17 06:00 128 02/01/17 04:00 60 02/01/17 04:00 129 123/69 150/78 02/01/17 04:00 98.6 129 38 123/69 100 150/79 02/01/17 04:00 129 02/01/17 03:57 94 60 02/01/17 02:00 133 02/01/17 00:00 118 145/84 129/64 02/01/17 00:00 60 02/01/17 00:00 118 02/01/17 00:00 98.8 118 19 145/84 94 129/64 01/31/17 23:20 94 60 01/31/17 22:00 134 01/31/17 20:01 96 60 01/31/17 20:00 110 01/31/17 20:00 60 01/31/17 20:00 99.0 101 20 137/81 96 126/52 01/31/17 20:00 110 137/81 125/52 01/31/17 18:00 110 01/31/17 16:00 122 123/53 123/53 01/31/17 16:00 99.1 91 17 107/70 94 01/31/17 16:00 105 01/31/17 16:00 65 01/31/17 15:22 94 90 01/31/17 14:00 102 01/31/17 12:00 99.6 89 17 102/71 92 01/31/17 12:00 117 01/31/17 12:00 113 141/56 141/56 01/31/17 12:00 65 01/31/17 11:42 89 70 02/01/17 02/01/17 02/01/17 07:00 15:00 23:00 Intake Total 527 ml Output Total 90 ml Balance 437 ml Result Diagram: 02/01/17 0320 02/01/17 0320 Laboratory Results Laboratory Tests Test 01/31/17 02/01/17 02/01/17 02/01/17 18:00 00:00 03:20 06:15 Activated Partial 43.0 SEC 47.4 SEC 55.5 SEC Thromboplast Time White Blood Count 4.3 TH/MM3 Red Blood Count 3.10 MIL/MM3 Hemoglobin 9.4 GM/DL Hematocrit 27.5 % Mean Corpuscular Volume 88.6 FL Mean Corpuscular Hemoglobin 30.1 PG Mean Corpuscular Hemoglobin 34.0 % Concent Red Cell Distribution Width 17.2 % Platelet Count 79 TH/MM3 Mean Platelet Volume 10.8 FL Neutrophils (%) (Auto) 93.1 % Lymphocytes (%) (Auto) 3.0 % Monocytes (%) (Auto) 3.5 % Eosinophils (%) (Auto) 0.1 % Basophils (%) (Auto) 0.3 % Neutrophils # (Auto) 4.0 TH/MM3 Lymphocytes # (Auto) 0.1 TH/MM3 Monocytes # (Auto) 0.2 TH/MM3 Eosinophils # (Auto) 0.0 TH/MM3 Basophils # (Auto) 0.0 TH/MM3 CBC Comment AUTO DIFF Differential Comment AUTO DIFF CONFIRMED Platelet Estimate LOW Platelet Morphology Comment ENLARGED Sodium Level 139 MEQ/L Potassium Level 4.0 MEQ/L Chloride Level 98 MEQ/L Carbon Dioxide Level 27.4 MEQ/L Anion Gap 14 MEQ/L Blood Urea Nitrogen 73 MG/DL Creatinine 3.91 MG/DL Estimat Glomerular Filtration 15 ML/MIN Rate Random Glucose 166 MG/DL Calcium Level 7.7 MG/DL Phosphorus Level 5.7 MG/DL Magnesium Level 2.5 MG/DL Total Bilirubin 0.8 MG/DL Aspartate Amino Transf 16 U/L (AST/SGOT) Alanine Aminotransferase 49 U/L (ALT/SGPT) Alkaline Phosphatase 77 U/L Ammonia 28 MCMOL/L Total Protein 5.5 GM/DL Albumin 2.3 GM/DL Culture Results Microbiology Date/Time Procedure Status Source Growth 01/29/17 12:39 Aerobic Blood Culture Received Blood Peripheral Pending 01/29/17 12:39 Anaerobic Blood Culture Received Blood Peripheral Pending 01/29/17 14:00 Aerobic Blood Culture - Preliminary Resulted Blood Peripheral NO GROWTH IN 3 DAYS 01/29/17 14:00 Anaerobic Blood Culture - Final Resulted Blood Peripheral QNS - SEE AEROBE REPORT 01/29/17 14:10 Aerobic Blood Culture - Preliminary Resulted Blood Peripheral NO GROWTH IN 3 DAYS 01/29/17 14:10 Anaerobic Blood Culture - Preliminary Resulted Blood Peripheral NO GROWTH IN 3 DAYS 01/30/17 07:50 Gram Stain - Final Complete Sputum Endotracheal 01/30/17 07:50 Sputum Culture - Final Complete Sputum Endotracheal MODERATE GROWTH NORMAL RESPIRATORY NIEVES 01/30/17 07:50 Urine Culture - Final Complete Urine Catheterized Urine NO GROWTH IN 48 HOURS. Imaging Studies Last 24 hours Impressions Chest X-Ray 02/01/17 0600 Signed Impressions: Service Date/Time: , February 01, 2017 06:38 - CONCLUSION: Improving aeration Daniel Cantu MD Administered Medications Medications (Trade) Dose Ordered Sig/Claire Route PRN Reason Start Time Stop Time Status Last Admin Dose Admin Propofol (Diprivan 1000 Mg/100ml Inj) 100 ml @ 0 mls/hr TITRATE IV 01/05/17 21:45 02/01/17 08:13 Docusate Sodium (Colace Liq) 100 mg Q12HR PO 01/06/17 21:00 02/01/17 08:14 Sodium Chloride (NS Flush) 2 ml UNSCH PRN IV FLUSH FLUSH AFTER USING IV ACCESS 01/06/17 13:15 02/01/17 08:15 Sodium Chloride (NS Flush) 2 ml BID IV FLUSH 01/06/17 21:00 02/01/17 08:13 Chlorhexidine Gluconate (Chlorhexidine 2% Cloth) Taper DAILY@04 TOP 01/07/17 04:00 01/03/18 03:59 02/01/17 04:00 Dextrose (D50w (Vial) Inj) 25 ml UNSCH PRN IV PUSH HYPOGLYCEMIA-SEE COMMENTS 01/09/17 07:15 01/21/17 19:15 Insulin Aspart (NovoLOG SUPPLEMENTAL SCALE) 1 Q6HR SQ 01/10/17 06:00 01/29/17 23:00 Bisacodyl (Dulcolax Supp) 10 mg DAILY PRN RECTAL CONSTIPATION 01/10/17 09:15 Hold 01/10/17 09:56 Sennosides (Senna Liq) 8.8 mg BID PO 01/16/17 09:00 02/01/17 08:14 Glycerin (Glycerin Adult Supp) 2 gm BID PRN RECTAL CONSTIPATION 01/17/17 06:45 01/17/17 14:30 Sodium Chloride (NS Flush) DAILY IVF 01/17/17 12:30 02/01/17 08:13 Artificial Tears (Tears Naturale Opth Soln) 1 drop Q8HR EACH EYE 01/17/17 22:00 02/01/17 06:04 Chlorhexidine Gluconate 15 ml 15 ml BID@08,20 MT 01/17/17 20:00 02/01/17 07:45 Midazolam HCl 100 ml @ 0 mls/hr TITRATE IV 01/17/17 16:45 01/25/17 00:18 Fentanyl Citrate (fentaNYL DRIP) 250 ml @ 0 mls/hr TITRATE IV 01/17/17 16:45 01/29/17 05:32 Metoclopramide HCl (Reglan Inj) 5 mg Q8HR IV PUSH 01/18/17 06:45 02/01/17 06:04 Calcium Acetate (Phoslo) 667 mg TID PO 01/19/17 09:00 02/01/17 08:14 Lansoprazole 30 mg 30 mg DAILY NG 01/19/17 09:00 02/01/17 08:14 Sodium Chloride 1,000 ml @ 0 mls/hr Q0M PRN IV For Prime & Rinse Back 01/19/17 08:06 01/29/17 13:49 Sodium Chloride (NS 1000 ml Inj) 1,000 ml @ 0 mls/hr Q0M PRN IV WITH DIALYSIS 01/19/17 08:06 01/27/17 09:24 Mannitol (Mannitol Inj) 12.5 gm UNSCH PRN IV WITH DIALYSIS 01/19/17 08:15 01/26/17 15:26 Albumin Human (Albumin 25% Inj) 25 gm UNSCH PRN IV WITH DIALYSIS 01/19/17 08:15 01/29/17 13:50 Sodium Chloride (NS Flush) 5 ml UNSCH PRN IV FLUSH WITH DIALYSIS 01/19/17 08:15 01/27/17 09:22 Gentamicin Sulfate (Gentamicin (Dialysis) Inj) 20 mg UNSCH PRN IV WITH DIALYSIS 01/19/17 08:15 01/31/17 14:48 Acetaminophen (Tylenol) 650 mg UNSCH PRN PO for headach, pain, temp > 101F 01/19/17 08:15 01/29/17 12:07 Epoetin Rizwan 4000 units 4,000 units UNSCH PRN IV WITH DIALYSIS 01/19/17 08:15 01/31/17 14:48 Norepinephrine Bitartrate/Sodium Chloride (Levophed Inj/NS 250 ml Inj) 250 ml @ 0 mls/hr TITRATE IV 01/20/17 08:00 01/20/17 10:21 Labetalol HCl (Trandate Inj) 10 mg Q1HR PRN IV PUSH SBP>160, DBP>90, HR>65 01/24/17 19:15 01/24/17 19:28 Hydralazine HCl 10 mg 10 mg Q1HR PRN IV PUSH SBP>160, DBP>90 01/24/17 19:15 01/29/17 09:33 Diltiazem HCl/ Sodium Chloride (Cardizem Inj/NS Inj) 125 ml @ 0 mls/hr TITRATE IV 01/29/17 08:45 01/31/17 21:00 Hyoscyamine Sulfate 0.25 mg 0.25 mg Q4H PRN PO secretions 01/29/17 11:00 01/29/17 12:07 Piperacillin Sod/ Tazobactam Sod 50 ml @ 100 mls/hr Q8H IV 01/29/17 13:00 02/01/17 06:04 Heparin Sodium/ Dextrose (Heparin-D5W Inj) 250 ml @ 0 mls/hr TITRATE IV 01/31/17 09:00 01/31/17 20:48 Amiodarone HCl (Cordarone) 200 mg Q12HR PO 01/31/17 09:00 02/01/17 08:14 Carvedilol (Coreg) 12.5 mg Q12HR PO 01/31/17 09:00 02/01/17 08:14 Lactulose (Lactulose Liq) 30 ml DAILY PO 01/31/17 09:00 02/01/17 08:14 Heparin Sodium (Porcine) (Heparin Inj) UNSCH PRN .XX WITH DIALYSIS 01/31/17 10:45 01/31/17 14:49 Prednisone (Deltasone) 10 mg BID PO 01/31/17 21:00 02/01/17 08:14 Objective Remarks GENERAL: Intubated sedated male. SKIN: Warm and dry. hematoma without change, right neck. HEAD: Normocephalic. no nasal bleeding. EYES: No injection or drainage. NECK: Supple, trachea midline. CARDIOVASCULAR: tachycardic, irregular rhythm RESPIRATORY: scattered rhonchi. on mechanical ventilation GASTROINTESTINAL: Abdomen distended. EXTREMITIES: No cyanosis NEUROLOGICAL: intubated. sedated Assessment/Plan Problem List: (1) Thrombosis of left atrium without antecedent myocardial infarction Status: Acute Plan: 02/01/17: continue heparin gtt, monitor for bleeding. (2) Thrombocytopenia Status: Acute Plan: 02/01/17: platelets continue their recovery. monitor CBC --likely d/t bleeding + acute illness. --CLIFFORD negative Assessment 71y/o male admitted in afib w/RVR. 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 --hematoma from central line placement in the right neck --epistaxis requiring nasal plugs Plan 1. monitor CBC 2. continue heparin gtt 3. okay to hold heparin gtt prior to trach placement. Priya Fraga Feb 01, 2017 11:18
[2017-02-01] MEDS: DILTIAZEM INJ 125 MG in SODIUM CHLORIDE 0.9% INJ 100 ML IV SCH ×2 (12:19→18:06)
--- NOTE | 2017-02-01 12:20 | HHI.PR ---
Subjective Remarks More awake opens eyes ,and on Vent support ,now on PEEP 8. FIO2 at 50%. remains critical . CXR is better. Had dialysis . No response to commands Objective Vital Signs Date Time Temp Pulse Resp B/P Pulse Ox O2 Delivery O2 Flow Rate FiO2 02/01/17 11:16 100 50 02/01/17 08:30 82 141/94 118/56 02/01/17 08:30 82 20 141/94 136/66 02/01/17 08:00 50 02/01/17 08:00 145 02/01/17 08:00 145 141/94 118/56 02/01/17 08:00 98.0 145 20 141/94 97 118/56 02/01/17 07:48 98 50 02/01/17 06:00 128 02/01/17 04:00 60 02/01/17 04:00 129 123/69 150/78 02/01/17 04:00 98.6 129 38 123/69 100 150/79 02/01/17 04:00 129 02/01/17 03:57 94 60 02/01/17 02:00 133 02/01/17 00:00 118 145/84 129/64 02/01/17 00:00 60 02/01/17 00:00 118 02/01/17 00:00 98.8 118 19 145/84 94 129/64 01/31/17 23:20 94 60 01/31/17 22:00 134 01/31/17 20:01 96 60 01/31/17 20:00 110 01/31/17 20:00 60 01/31/17 20:00 99.0 101 20 137/81 96 126/52 01/31/17 20:00 110 137/81 125/52 01/31/17 18:00 110 01/31/17 16:00 122 123/53 123/53 01/31/17 16:00 99.1 91 17 107/70 94 01/31/17 16:00 105 01/31/17 16:00 65 01/31/17 15:22 94 90 01/31/17 14:00 102 I/O 01/31/17 01/31/17 01/31/17 02/01/17 02/01/17 02/01/17 07:00 15:00 23:00 07:00 15:00 23:00 Intake Total 590 ml 766 ml 521 ml 527 ml Output Total 50 ml 120 ml 3075 ml 90 ml Balance 540 ml 646 ml -2554 ml 437 ml Intake Oral 0 ml 0 ml 0 ml IV Total 285 ml 541 ml 250 ml 221 ml Tube Feeding 245 ml 225 ml 271 ml 306 ml Tube Irrigant 60 ml Output Urine Total 25 ml 100 ml 50 ml 40 ml Stool Total 25 ml 20 ml 25 ml 50 ml Hemodialysis 3000 ml Result Diagram: 02/01/1731902/01/17 032 Objective Remarks GENERAL: This is an obese, elderly man who is intubated,and on the vent HEENT: Head is normocephalic. Pupils are reactive. NECK Neck supple. Trachea is midline. CHEST: crackles at both lung bases. Decreased breath sounds at bases HEART: The heart sounds are irregular S1-S2. No murmur. ABDOMEN: Soft. Obese without masses. No organomegaly. EXTREMITIES: No edema. Decreased peripheral pulses. Reflexes are not elicited. The patient is lethargic SKIN: Dry and cool. Assessment and Plan Assessment and Plan IMPRESSION 1. Hypoxic respiratory failure. 2. Left lower lobe atelectasis and possible pneumonia with aspiration. 3. Left pleural effusion resolved. 4. Cardiomyopathy and congestive heart failure. 5. Obstructive sleep apnea. 6. Diabetes mellitus. 7. Atrial fibrillation. 8. Nasopharyngeal bleed Plan : 1. Wean FIO2 to keep sat >90. 2. PEEP at 8 CM, FIO2 to 45 % 3. Antibiotics per ID. 4. CBC ,BMP in am. 5. Nebs qid , duoneb. 6. Trach suction and Lavage 7. Tube feeds at 50 CC 8. Prednisone 20 mg daily 9. Dialysis per renal. 10. Plan Tracheostomy soon/ Surgery consult Julius Burch MD Feb 01, 2017 12:20
[2017-02-01] MEDS: HEPARIN-D5W INJ 250 ML IV SCH (12:30)
[2017-02-01] MEDS: NYSTATIN 100,000 U/GM PWD 15 GM BTL TOPICAL PRN (12:47)
--- NOTE | 2017-02-01 16:49 | PD.CONS ---
cc: Ar Bhakta MD HPI Service General Surgery Consult Requested By Dr. Cagle Reason for Consult Tracheostomy tube placement Primary Care Physician Unknown History of Present Illness This is a 71 year old male with a past medical history of obesity and hypertension. The patient originally presented to [facility] with dyspnea and atrial fibrillation with RVR. During his hospitalization at [facility], the patient underwent an echocardiogram which showed severe systolic dysfunction with an ejection fraction of 1015 % the patient then underwent a cardiac catheterization showing significance with left circumflex 90%. The patient underwent multiple attempts of unsuccessful synchronized cardioversion. The patient was transferred to [facility] for cardiac ablation with Dr. Jimenez. The patient was scheduled for cardiac ablation, the procedure was canceled. The patient required emergent intubation and required ventilator management a VLADIMIR was performed showing a clot in the left atrial appendage. The patient has been in respiratory failure on a Roto-Rest bed for extended period of time. He is currently intubated and sedated. A General Surgery consultation has been requested for placement of a tracheostomy tube for ventilator dependent respiratory failure. Review of Systems ROS Limitations: Clinical Condition, Intubated Past Family Social History Past Medical History Obesity Atrial fib Hypertension Hyperparathyroidism Past Surgical History Parathyroid removal Reported Medications See chart put please note he is currently on a heparin drip Allergies: Coded Allergies: No Known Allergies (Unverified , 01/05/17) Pt stated he had No Known Allergies Active Ordered Medications Current Medications Medications (Trade) Dose Ordered Sig/Claire Route Start Time Stop Time Status Last Admin Sodium Chloride 500 ml @ 30 mls/hr CONTINUOUS IV 01/05/17 10:00 Sodium Chloride 500 ml @ 30 mls/hr CONTINUOUS IV 01/05/17 09:15 (Diprivan 1000 Mg/100ml Inj) 100 ml @ 0 mls/hr TITRATE IV 01/05/17 21:45 02/01/17 08:13 (Colace Liq) 100 mg Q12HR PO 01/06/17 21:00 02/01/17 08:14 (NS Flush) 2 ml UNSCH PRN IV FLUSH 01/06/17 13:15 02/01/17 08:15 (NS Flush) 2 ml BID IV FLUSH 01/06/17 21:00 02/01/17 08:13 Miscellaneous Information 1 Q361D XX 01/06/17 13:15 (Chlorhexidine 2% Cloth) Taper DAILY@04 TOP 01/07/17 04:00 01/03/18 03:59 02/01/17 04:00 (Chlorhexidine 2% Cloth) 3 pack UNSCH PRN TOP 01/06/17 13:15 (D50w (Vial) Inj) 25 ml UNSCH PRN IV PUSH 01/09/17 07:15 01/21/17 19:15 (Glucagon Inj) 1 mg UNSCH PRN OTHER 01/09/17 07:15 (NovoLOG SUPPLEMENTAL SCALE) 1 Q6HR SQ 01/10/17 06:00 01/29/17 23:00 (Dulcolax Supp) 10 mg DAILY PRN RECTAL 01/10/17 09:15 Hold 01/10/17 09:56 (Afrin 0.05% [place]) 1 spray UNSCH PRN NASAL 01/14/17 15:45 (Senna Liq) 8.8 mg BID PO 01/16/17 09:00 02/01/17 08:14 (Glycerin Adult Supp) 2 gm BID PRN RECTAL 01/17/17 06:45 01/17/17 14:30 (NS Flush) DAILY IVF 01/17/17 12:30 02/01/17 08:13 (NS Flush) UNSCH PRN IVF 01/17/17 12:30 (Tears Naturale Opth Soln) 1 drop Q8HR EACH EYE 01/17/17 22:00 02/01/17 13:42 Chlorhexidine Gluconate 15 ml 15 ml BID@08,20 MT 01/17/17 20:00 02/01/17 07:45 Midazolam HCl 100 ml @ 0 mls/hr TITRATE IV 01/17/17 16:45 01/25/17 00:18 (fentaNYL DRIP) 250 ml @ 0 mls/hr TITRATE IV 01/17/17 16:45 01/29/17 05:32 (Reglan Inj) 5 mg Q8HR IV PUSH 01/18/17 06:45 02/01/17 13:42 (Phoslo) 667 mg TID PO 01/19/17 09:00 02/01/17 12:20 Lansoprazole 30 mg 30 mg DAILY NG 01/19/17 09:00 02/01/17 08:14 Sodium Chloride 1,000 ml @ 0 mls/hr Q0M PRN IV 01/19/17 08:06 01/29/17 13:49 Sodium Chloride 1,000 ml @ 200 mls/hr Q5H PRN IV 01/19/17 08:06 (NS 1000 ml Inj) 1,000 ml @ 0 mls/hr Q0M PRN IV 01/19/17 08:06 01/27/17 09:24 (Mannitol Inj) 12.5 gm UNSCH PRN IV 01/19/17 08:15 01/26/17 15:26 (Albumin 25% Inj) 25 gm UNSCH PRN IV 01/19/17 08:15 01/29/17 13:50 (NS Flush) 5 ml UNSCH PRN IV FLUSH 01/19/17 08:15 01/27/17 09:22 (Gentamicin (Dialysis) Inj) 20 mg UNSCH PRN IV 01/19/17 08:15 01/31/17 14:48 (Zofran Inj) 4 mg UNSCH PRN IV 01/19/17 08:15 (Tylenol) 650 mg UNSCH PRN PO 01/19/17 08:15 01/29/17 12:07 (Benadryl) 25 mg UNSCH PRN PO 01/19/17 08:15 (Nitrostat Sl) 0.4 mg UNSCH PRN SL 01/19/17 08:15 (Catapres) 0.1 mg UNSCH PRN PO 01/19/17 08:15 (Epogen Inj) 4,000 units UNSCH PRN IV 01/19/17 08:15 01/31/17 14:48 Gelatin 1 foam 1 foam UNSCH PRN TOP 01/19/17 08:15 (Levophed Inj/NS 250 ml Inj) 250 ml @ 0 mls/hr TITRATE IV 01/20/17 08:00 01/20/17 10:21 (Brethine Inj) 1 mg UNSCH PRN SQ 01/20/17 08:00 (Trandate Inj) 10 mg Q1HR PRN IV PUSH 01/24/17 19:15 01/24/17 19:28 (Nitroglycerin 2% Oint) 2 inch Q6HR PRN TOPICAL 01/24/17 19:15 Hydralazine HCl 10 mg 10 mg Q1HR PRN IV PUSH 01/24/17 19:15 01/29/17 09:33 (Cardizem Inj/NS Inj) 125 ml @ 0 mls/hr TITRATE IV 01/29/17 08:45 02/01/17 12:19 (Levsin) 0.25 mg Q4H PRN PO 01/29/17 11:00 01/29/17 12:07 Nystatin 1 applic 1 applic Q12HR PRN TOPICAL 01/29/17 11:00 02/01/17 12:47 (Heparin-D5W Inj) 250 ml @ 0 mls/hr TITRATE IV 01/31/17 09:00 02/01/17 12:30 (Cordarone) 200 mg Q12HR PO 01/31/17 09:00 02/01/17 08:14 (Coreg) 12.5 mg Q12HR PO 01/31/17 09:00 02/01/17 08:14 (Lactulose Liq) 30 ml DAILY PO 01/31/17 09:00 02/01/17 08:14 (Heparin Inj) 8,000 units UNSCH PRN IVF 01/31/17 10:45 (Heparin Inj) 1,000 units Q1H PRN IVF 01/31/17 10:45 (Heparin Inj) UNSCH PRN .XX 01/31/17 10:45 01/31/17 14:49 Prednisone 10 mg 10 mg BID PO 01/31/17 21:00 02/01/17 08:14 (Zosyn 2.25 Gm Premix) 50 ml @ 100 mls/hr Q8H IV 02/01/17 21:00 Family History Noncontributory Social History Unknown Physical Exam Vital Signs Vital Signs Date Time Temp Pulse Resp B/P Pulse Ox O2 Delivery O2 Flow Rate FiO2 02/01/17 16:00 50 02/01/17 16:00 77 02/01/17 15:01 96 45 02/01/17 14:00 80 02/01/17 12:00 79 02/01/17 12:00 50 02/01/17 12:00 99.2 79 19 134/77 100 142/60 02/01/17 12:00 79 134/77 142/60 02/01/17 11:16 100 50 02/01/17 10:00 80 02/01/17 08:30 82 141/94 118/56 02/01/17 08:30 82 20 141/94 136/66 02/01/17 08:00 50 02/01/17 08:00 145 02/01/17 08:00 145 141/94 118/56 02/01/17 08:00 98.0 145 20 141/94 97 118/56 02/01/17 07:48 98 50 02/01/17 06:00 128 02/01/17 04:00 60 02/01/17 04:00 129 123/69 150/78 02/01/17 04:00 98.6 129 38 123/69 100 150/79 02/01/17 04:00 129 02/01/17 03:57 94 60 02/01/17 02:00 133 02/01/17 00:00 118 145/84 129/64 02/01/17 00:00 60 02/01/17 00:00 118 02/01/17 00:00 98.8 118 19 145/84 94 129/64 01/31/17 23:20 94 60 01/31/17 22:00 134 01/31/17 20:01 96 60 01/31/17 20:00 110 01/31/17 20:00 60 01/31/17 20:00 99.0 101 20 137/81 96 126/52 01/31/17 20:00 110 137/81 125/52 01/31/17 18:00 110 Physical Exam GENERAL: Obese male resting in bed; Intubated SKIN: Warm and dry. HEAD: Atraumatic. Normocephalic. Neck: large healing hematoma on RIGHT side of neck; no visible scars. EYES: Pupils equal and round. No scleral icterus. No injection or drainage. ENT: No nasal bleeding or discharge. Mucous membranes pink and moist. NECK: Trachea midline. CARDIOVASCULAR: Atrial fibrillation with a rate in the low 100s. RESPIRATORY: No accessory muscle use. Clear to auscultation. Breath sounds equal bilaterally. GASTROINTESTINAL: Abdomen soft, non-tender, nondistended. No visible scars. MUSCULOSKELETAL: Extremities without clubbing, cyanosis, or edema. No obvious deformities. NEUROLOGICAL: Unable to examine. PSYCHIATRIC: Unable to examine. Laboratory Laboratory Tests Test 01/31/17 02/01/17 02/01/17 02/01/17 18:00 00:00 03:20 06:15 Activated Partial 43.0 47.4 55.5 Thromboplast Time White Blood Count 4.3 Red Blood Count 3.10 Hemoglobin 9.4 Hematocrit 27.5 Mean Corpuscular Volume 88.6 Mean Corpuscular Hemoglobin 30.1 Mean Corpuscular Hemoglobin 34.0 Concent Red Cell Distribution Width 17.2 Platelet Count 79 Mean Platelet Volume 10.8 Neutrophils (%) (Auto) 93.1 Lymphocytes (%) (Auto) 3.0 Monocytes (%) (Auto) 3.5 Eosinophils (%) (Auto) 0.1 Basophils (%) (Auto) 0.3 Neutrophils # (Auto) 4.0 Lymphocytes # (Auto) 0.1 Monocytes # (Auto) 0.2 Eosinophils # (Auto) 0.0 Basophils # (Auto) 0.0 CBC Comment AUTO DIFF Differential Comment AUTO DIFF CONFIRMED Platelet Estimate LOW Platelet Morphology Comment ENLARGED Sodium Level 139 Potassium Level 4.0 Chloride Level 98 Carbon Dioxide Level 27.4 Anion Gap 14 Blood Urea Nitrogen 73 Creatinine 3.91 Estimat Glomerular Filtration 15 Rate Random Glucose 166 Calcium Level 7.7 Phosphorus Level 5.7 Magnesium Level 2.5 Total Bilirubin 0.8 Aspartate Amino Transf 16 (AST/SGOT) Alanine Aminotransferase 49 (ALT/SGPT) Alkaline Phosphatase 77 Ammonia 28 Total Protein 5.5 Albumin 2.3 Date/Time Procedure Status Source Growth 01/30/17 07:50 Urine Culture - Final Complete Urine Catheterized Urine NO GROWTH IN 48 HOURS. 01/30/17 07:50 Gram Stain - Final Complete Sputum Endotracheal 01/30/17 07:50 Sputum Culture - Final Complete Sputum Endotracheal MODERATE GROWTH NORMAL RESPIRATORY NIEVES 01/29/17 14:10 Aerobic Blood Culture - Preliminary Resulted Blood Peripheral NO GROWTH IN 3 DAYS 01/29/17 14:10 Anaerobic Blood Culture - Preliminary Resulted Blood Peripheral NO GROWTH IN 3 DAYS 01/29/17 12:39 Aerobic Blood Culture Received Blood Peripheral Pending 01/29/17 12:39 Anaerobic Blood Culture Received Blood Peripheral Pending Result Diagram: 02/01/17 0320 02/01/17 0320 Assessment and Plan Assessment and Plan 71 year old male with extensive cardiac history; ventilator dependent respiratory failure in need of tracheostomy tube placement -Plan for tracheostomy tube placement tomorrow at 2PM in OR -Hold heparin at 0600 on February 02 -NPO after MN -Obtain consents -Discussed procedure with Olena on the phone; all questions were answered -Discussed with Dr. Cagle Attending Note - Dr. Bhakta Patient seen and examined Extremely obese; hematoma right side of neck (resolving) Not a candidate for bedside trach; discussed with pt's family at bedside this evening Plan for trach in OR tomorrow; GAR discussed with family; they vocalize understanding and agree to proceed (bleeding, infection, trach dislodgement, pneumothorax, need for reoperation) The exam, history, and the medical decision-making described in the above note were completed with the assistance of the mid-level provider. I reviewed and agree with the findings presented. I attest that I had a [id number] encounter with the patient on the same day, and personally performed and documented my assessment and findings in the medical record. Discussed Condition With Dr. Yony Palmer () Cindy Coto Feb 01, 2017 16:49 Ar Bhakta MD Feb 01, 2017 20:00
--- NOTE | 2017-02-01 16:54 | PD.CONS ---
HPI History of Present Illness Hx obtained from EMR, pt intubated. This 71 yo betsy was admitted to [facility] for dyspnea, AF, RVR. He was subsequently transferred [place] [facility] and was found to have an atrial clot. He is in respiratory failure, intubated on ventilator. GI has been consulted for PEG. (Anna Pollard) PFSH Past Medical History * Hypertension * Congestive heart failure (single hospitalization for this problem approximately 8 years ago) * Morbid obesity * Obstructive sleep apnea not on C Pap (has not undergone a formal sleep study) * Atrial fibrillation (no known atrial fibrillation prior to this hospitalization) ( * CAD and hx of cath / stent 12/29/16 * Thyroid disease * Hydronephrosis * Hyperparathyroidsim s/p parathyroid surgery * Hard of hearing . Past Surgical History * Parathyroidectomy * Cardiac cath/stent . (Anna Pollard) Coded Allergies: No Known Allergies (Unverified , 01/05/17) Pt stated he had No Known Allergies Family History Father of a myocardial infarction at approximately age 96. Mother in her 80s of uncertain cause. No other known diseases run in the family. . Social History per EMR no tobacco or ETOH (Anna Pollard) Review of Systems ROS NON CONTRIBUTORY (Anna Pollard) GI Exam Vitals I&O Vital Signs Date Time Temp Pulse Resp B/P Pulse Ox O2 Delivery O2 Flow Rate FiO2 02/01/17 16:00 77 108/67 118/62 02/01/17 16:00 50 02/01/17 16:00 77 02/01/17 16:00 98.2 77 18 108/67 97 118/62 02/01/17 15:01 96 45 02/01/17 14:00 80 02/01/17 12:00 79 02/01/17 12:00 50 02/01/17 12:00 99.2 79 19 134/77 100 142/60 02/01/17 12:00 79 134/77 142/60 02/01/17 11:16 100 50 02/01/17 10:00 80 02/01/17 08:30 82 141/94 118/56 02/01/17 08:30 82 20 141/94 136/66 02/01/17 08:00 50 02/01/17 08:00 145 6/1/17 08:00 145 141/94 118/56 02/01/17 08:00 98.0 145 20 141/94 97 118/56 02/01/17 07:48 98 50 02/01/17 06:00 128 02/01/17 04:00 60 02/01/17 04:00 129 123/69 150/78 02/01/17 04:00 98.6 129 38 123/69 100 150/79 02/01/17 04:00 129 02/01/17 03:57 94 60 02/01/17 02:00 133 02/01/17 00:00 118 145/84 129/64 02/01/17 00:00 60 02/01/17 00:00 118 02/01/17 00:00 98.8 118 19 145/84 94 129/64 01/31/17 23:20 94 60 01/31/17 22:00 134 01/31/17 20:01 96 60 01/31/17 20:00 110 01/31/17 20:00 60 01/31/17 20:00 99.0 101 20 137/81 96 126/52 01/31/17 20:00 110 137/81 125/52 01/31/17 18:00 110 I/O 01/31/17 01/31/17 01/31/17 02/01/17 02/01/17 02/01/17 07:00 15:00 23:00 07:00 15:00 23:00 Intake Total 590 ml 766 ml 521 ml 527 ml 692 ml Output Total 50 ml 120 ml 3075 ml 90 ml 350 ml Balance 540 ml 646 ml -2554 ml 437 ml 342 ml Intake Oral 0 ml 0 ml 0 ml IV Total 285 ml 541 ml 250 ml 221 ml 347 ml Tube Feeding 245 ml 225 ml 271 ml 306 ml 245 ml Tube Irrigant 60 ml 100 ml Output Urine Total 25 ml 100 ml 50 ml 40 ml 150 ml Stool Total 25 ml 20 ml 25 ml 50 ml 200 ml Hemodialysis 3000 ml Imaging Last Impressions Chest X-Ray 02/01/17 0600 Signed Impressions: Service Date/Time: February 06:38 - CONCLUSION: Improving aeration Daniel Cantu MD Head CT 01/31/17 0000 Signed Impressions: Service Date/Time: Tuesday, January 31, 2017 08:42 - CONCLUSION: 1. 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 Right basal ganglia lacunar infarct is age indeterminate. 2. Maurice sinusitis along with opacification of the middle ears and mastoid air cells bilaterally. Geovanny Lynch MD Abdomen X-Ray 01/21/17 0000 Signed Impressions: Service Date/Time: Saturday, January 21, 2017 08:41 - CONCLUSION: Nondiagnostic study. Gurvinder Collier MD Renal Ultrasound 01/09/17 0000 Signed Impressions: Service Date/Time: Monday, January 09, 2017 13:56 - CONCLUSION: 1. Right kidney is sonographically normal. 2. Benign-appearing 2.4 x 1.5 cm cortical cyst in the midpole of the left kidney. 3. Subcentimeter echogenic, non-shadowing foci in the midpole of the left kidney would be unusual for stones and may represent ectopic hilar fat. No hydronephrosis. 4. Urinary bladder is decompressed with a Alanis catheter. Douglas Ward MD Chest Ultrasound 01/09/17 0000 Signed Impressions: Service Date/Time: Monday, January 09, 2017 08:18 - CONCLUSION: No left-sided pleural effusion. The abnormality in the left chest on chest radiograph is likely related to mucous plugging. When patient had a CT scan yesterday the left lung was well aerated. Edgardo Mayorga MD Chest CT 01/08/17 0600 Signed Impressions: Service Date/Time: Sunday, January 08, 2017 08:46 - CONCLUSION: Massive cardiomegaly with panchamber enlargement extensive coronary calcifications. Stable trace pericardial effusion. Increasing bibasilar consolidative changes with minimal bilateral pleural effusions.. Rhys Fritz MD FACR Thoracentesis 01/08/17 0000 Signed Impressions: Service Date/Time: Sunday, January 08, 2017 16:08 - CONCLUSION: Uncomplicated CT-guided thoracentesis on the right. The left sided thoracentesis was not performed as there was no significant left pleural fluid. The abnormality on most recent chest x-ray was secondary to mucous plugging and left sided atelectasis. Edgardo Mayorga MD Laboratory Test 01/31/17 02/01/17 02/01/17 02/01/17 18:00 00:00 03:20 06:15 Activated Partial 43.0 SEC 47.4 SEC 55.5 SEC Thromboplast Time White Blood Count 4.3 TH/MM3 Red Blood Count 3.10 MIL/MM3 Hemoglobin 9.4 GM/DL Hematocrit 27.5 % Mean Corpuscular Volume 88.6 FL Mean Corpuscular Hemoglobin 30.1 PG Mean Corpuscular Hemoglobin 34.0 % Concent Red Cell Distribution Width 17.2 % Platelet Count 79 TH/MM3 Mean Platelet Volume 10.8 FL Neutrophils (%) (Auto) 93.1 % Lymphocytes (%) (Auto) 3.0 % Monocytes (%) (Auto) 3.5 % Eosinophils (%) (Auto) 0.1 % Basophils (%) (Auto) 0.3 % Neutrophils # (Auto) 4.0 TH/MM3 Lymphocytes # (Auto) 0.1 TH/MM3 Monocytes # (Auto) 0.2 TH/MM3 Eosinophils # (Auto) 0.0 TH/MM3 Basophils # (Auto) 0.0 TH/MM3 CBC Comment AUTO DIFF Differential Comment AUTO DIFF CONFIRMED Platelet Estimate LOW Platelet Morphology Comment ENLARGED Sodium Level 139 MEQ/L Potassium Level 4.0 MEQ/L Chloride Level 98 MEQ/L Carbon Dioxide Level 27.4 MEQ/L Anion Gap 14 MEQ/L Blood Urea Nitrogen 73 MG/DL Creatinine 3.91 MG/DL Estimat Glomerular Filtration 15 ML/MIN Rate Random Glucose 166 MG/DL Calcium Level 7.7 MG/DL Phosphorus Level 5.7 MG/DL Magnesium Level 2.5 MG/DL Total Bilirubin 0.8 MG/DL Aspartate Amino Transf 16 U/L (AST/SGOT) Alanine Aminotransferase 49 U/L (ALT/SGPT) Alkaline Phosphatase 77 U/L Ammonia 28 MCMOL/L Total Protein 5.5 GM/DL Albumin 2.3 GM/DL Date/Time Procedure Status Source Growth 01/30/17 07:50 Urine Culture - Final Complete Urine Catheterized Urine NO GROWTH IN 48 HOURS. 01/30/17 07:50 Gram Stain - Final Complete Sputum Endotracheal 01/30/17 07:50 Sputum Culture - Final Complete Sputum Endotracheal MODERATE GROWTH NORMAL RESPIRATORY NIEVES 01/29/17 14:10 Aerobic Blood Culture - Preliminary Resulted Blood Peripheral NO GROWTH IN 3 DAYS 01/29/17 14:10 Anaerobic Blood Culture - Preliminary Resulted Blood Peripheral NO GROWTH IN 3 DAYS 01/29/17 12:39 Aerobic Blood Culture Received Blood Peripheral Pending 01/29/17 12:39 Anaerobic Blood Culture Received Blood Peripheral Pending Physical Examination HEENT: normocephalic; atraumatic; no jaundice. dried blood nares. intubated CHEST: coarse CARDIAC: irr rate ABDOMEN: Soft, obese, nontender; no hepatosplenomegaly; bowel sounds +. EXTREMITIES: No clubbing, cyanosis, or edema. SKIN: Normal; no rash; no jaundice. APPLICATION SUPPORT TECHNICIAN: sedated on vent. (Anna Pollard) Assessment and Plan Plan ASSESSMENT - FEN/dysphagia - will do PEG - ARF, AF, RVR, acute on chronic kidney dz - per [facility] - PEG 1200 tomorrow - obtain consents - hold heparin gtt - NPO after midnight - supportive care - further recommendations to follow This pt seen by myself and Dr Cancino and this note is written on his behalf. ( Anna Pollard) Physician Comments Agree with above assessment and plan, for PEG placement off heparin. (Kaushik Cancino MD) Anna Pollard Feb 01, 2017 16:54 Kaushik Cancino MD Feb 02, 2017 10:19
[2017-02-01] MEDS: PIPERACIL-TAZO 2.25 GM PREMIX 50 ML IV SCH (20:24)
[2017-02-02] VITALS (19 sets, daily range): BP systolic 104–159; BP diastolic 54–95; PULSE 80–134; RESP 18; TEMP 98.3–99.6; O2SAT 91–100
[2017-02-02] MEDS: PROPOFOL 1000 MG/100 ML IV SCH ×2 (02:37→18:07)
[2017-02-02] MEDS: RESP: ALBUTEROL 2.5 MG/IPRATROPIUM 0.5 MG NEB (SCH) NEB ×5 (03:36→19:58)
[2017-02-02] MEDS: CHLORHEXIDINE GLUCONATE 2 % 1 PACK (2 CLOTHS) TOP SCH (04:00)
[2017-02-02] MEDS: METOCLOPRAMIDE HCL 10 MG/2 ML VIAL IV PUSH SCH ×3 (04:19→20:05)
[2017-02-02] MEDS: PIPERACIL-TAZO 2.25 GM PREMIX 50 ML IV SCH ×4 (04:19→20:03)
[2017-02-02] MEDS: ARTIFICIAL TEARS OPTH SOLN 15 ML BTL EACH EYE SCH ×3 (04:20→20:00)
[2017-02-02] MEDS: INSULIN ASPART SUPPLEMENTAL SCALE SQ SCH ×3 (06:00→18:00)
[2017-02-02] MEDS: CHLORHEXIDINE 0.12% (ORAL KIT) 15 ML CUP MT SCH ×2 (07:29→20:00)
[2017-02-02] MEDS ORDERED: DILTIAZEM HCL 25 MG/5 ML VIAL IV ONE (07:30)
[2017-02-02] MEDS: SODIUM CHLORIDE 0.9% FLUSH 10 ML FLUSH IV FLUSH PRN (07:30)
--- NOTE | 2017-02-02 07:33 | HHI.CCPN ---
Subjective Remarks/Hospital Course This is a 71-year-old gentleman that presented to [facility] secondary to dyspnea and atrial fibrillation with RVR. The patient has a medical history significant for obesity and hypertension. During his hospitalization at [facility], the patient underwent an echocardiogram which showed severe systolic dysfunction with an ejection fraction of 1015 % the patient then underwent a cardiac catheterization showing significance with left circumflex 90%. The patient underwent multiple attempts of unsuccessful synchronized cardioversion. The patient also underwent medical management with beta blockers, and calcium channel blockers that were also unsuccessful. The patient was transferred to [facility] for cardiac ablation with Dr. Jimenez. The patient was scheduled for cardiac ablation, the procedure was canceled. The patient required emergent intubation and required ventilator management a VLADIMIR was performed showing a clot in the left atrial appendage. The patient was placed on IV Cardizem, and an amiodarone infusion. Critical Care medicine was consulted for management. 01/06: Tmax 97.4. The patient remained on elevated vent settings with FiO2 of 1.0 overnight, PEEP requirements were increased to 8, to maintain a PaO2 of greater than [address] scan of the chest was obtained which noted bilateral effusions small, basilar consolidations right worse than the left, and a loculated area representing a possible pneumonia process, empyema, as well as aspiration or just loculated fluid as well as a small pericardial effusion. The patient continues on Cardizem and amiodarone infusions with a heart rate overnight 80s -115. The patient's vasopressor requirements of phenylephrine diminished to 20 mcgs. 01/07: Tmax 99.2. Yesterday the central line was placed for vasoactive medications and CVP monitoring, small hematoma noted near the right IJ area soft no compression of major vessels, with resolution of bleeding in that area. Phenylephrine was discontinued yesterday. The patient heart rate remains today [id number]. Cardizem infusion has been discontinued in the setting of EF of 10-15%. Esmolol infusion to be initiated this a.m.. Coumadin was initiated last night now placed on hold due to patient bleeding from nasopharynx and oropharynx. INR currently 1.2. Plan for CT thorax tomorrow, with possible IR intervention versus CVT consultation for possible empyema the patient will remain on heparin infusion, and transition onto Coumadin after any potential procedures to be initiated. Chest x-ray slightly improved FiO2 decreasing now 70%. Sedation vacation yesterday revealed GCS 11 T, patient alert responsive following commands. With initiation of antibiotics, leukocytosis resolved. ID consulted Dr. Gage. Blood cultures are pending. 01/08: Patient's heart rate 110-[address] scan of the chest imaging revealed fluid. Plan for thoracentesis and and studies of pleural fluid , this afternoon. The patient remains on amiodarone and heparin infusions, per cardiology. Heparin held, for thoracentesis this afternoon, and then will be resumed. The patient was maintained on CPAP trial for approximately one hour yesterday. During sedation vacation patient was alert following commands recognizing family. Plan to resume CPAP trials this afternoon post thoracentesis. 01/09: The patient underwent CT-guided thoracentesis yesterday , on the right side noted 400 cc of fluid was removed , with specimens ordered to be sent for evaluation .This morning chest x-ray performed showing almost complete opacification of the left lung. FiO2 requirements increase patient on FiO2 of 80%, O2 sat 94%. Left chest ultrasound obtained revealing no fluid. Consent obtained BAL performed, revealing emanating from the nearest previously ( patient was noted to have epistaxis with initiation of heparin on 01/06). Blood clots noted in left lung upon visualization with bronchoscopy, saline lavage applied, minimal blood clots removed. The patient was initiated on Mucomyst 10% , and pulmonology was consulted. Dr. Tasia Lama following. The patient shows no signs or evidence of bleeding actively, plan to consult ENT if signs of active bleeding become evident. Hemoglobin remains stable.The patient converted into sinus rhythm is today afternoon. Cardiology management of medications, IV amiodarone discontinued this afternoon. 01/10: Tmax 99.0. Chest x-ray shows slight improvement of left lung today. Plan for repeat bronchoscopy per Dr. Burch this a.m, and the patient continues on Mucomyst. The patient's cardiac rhythm reverted to A. fib last evening, amiodarone IV infusion reinstituted per Dr. Jimenez. 01/11: TMax 100.0. Much improved chest x-ray this morning. The patient continues in A. fib with a rate of 120, he continues on amiodarone, heparin infusion per cardiology. No evidence of active bleeding. 5/12 Patient Remains sedated with Diprivan, intubated. T:99.9. On Neosyn 15 mics , heparin and Amio drips. In Afib with RRV. Patient s/p repeat bronch with BAL yesterday by Dr. Burch and ETT replacement by Dr. Sanchez. On PC/AC with PEEP:14 , FIO2 100%. 01/13: TMax 100.2. Last night the nurse reported that the patient had a small amount of epistaxis, and blood in the oropharynx noted. The area continued to bleed during the night. ENT has been consulted. Heparin has been placed on hold , ASA has been discontinued in the setting of acute renal failure. The patient continues on amiodarone infusion , heart rate 120's. Neosynephrine has been discontinued, and Levophed instituted. Creatinine noted to be 4.5. As per report , states patient does not want dialysis. The patient continues on elevated PEEP of 14. 5/14: Heparin was discontinued yesterday in the setting of continued bleeding in the nasal/ oropharyngeal region. ENT was consulted and nasal packing was applied. During the night the patient still had small noted amount of bleeding from the oropharyngeal area plan today for oropharyngeal packing. Hgb 9, will transfuse .The patient was placed on norepinephrine for currently at 1-2 mcgs per minute. PEEP has been decreased to 12, with adequate oxygenation a PaO2 of 71. 5/15: Tmax 99.0. The patient continues to be anemic and thrombocytopenic, contributory factors being uremia. The patient's /family decided to pursue hemodialysis at this point. The patient received 1 unit of packed red blood cells yesterday. The patient was initiated on dialysis yesterday afternoon, with approximately 3 L removed. Nasal gauze packing removed and placement of nasal balloons by ENT yesterday. Oral gauze packing to be removed today. The patient received 2 separate doses of digoxin, A. fib heart rate ranging 80- < 120. The patient continues to have high ventilatory requirements, FiO2 was increased throughout the night to currently 80%, to maintain O2 sat greater than 92%. 01/16: FiO2 at 85%. Large clots removed from oropharynx overnight. Transfused 2 units PRBCs yesterday. No bowel movement. Tolerating tube feeds at 40 cc now with Nepro 01/17: Maximum 100.6. CURRENT TEMPERATURE 98.1. Central line pulled out yesterday. Flolan initiated yesterday and FiO2 down to 65%. Tolerating tube feeds. No bowel movement. Arousable weakly follow commands yesterday 01/18: Tmax 99.8. Currently afebrile. Initially, hemoptysis with desaturation requiring bronchoscopy. See bronchoscopy note. Roto-Rest bed ordered. FiO2 from 100-70% currently. On Nimbex drip. No BM. Tolerating tube feeds. 01/19: Afebrile. FiO2 down to 40%. We will attempt a wean Flolan today. On Nimbex drip. Positive BM yesterday. Tolerating tube feeds. 01/20: FiO2 back to 100%. Flolan "fell off "overnight. Ventilator adjusted back to 100%. Flolan reinstituted. Chest x-ray and ABG pending. Tolerating tube feeds. Positive BM. Afebrile. 01/21: Intolerant of tube feeding. KUB pending. Afebrile. Bleeding from bilateral nares and Alanis overnight. Argatroban has been held. Positive BM. 01/22 Patient is sedated with Fentanyl , versed in addition he is on Nimbex. Receiving HD. TF on hold for high residuals. 01/23 Patient is on Roto prone bed sedated and intubated. s/p HD yesterday with removal 3L. On Nimbex, afebrile. 01/24 Patient remains sedated with Versed, Fentanyl and remains on Nimbex. On PC/ AC with PEEP: 10, FIO2 down 40%. For HD today. Afebrile. 01/25 Patient remains sedated and intubated . On PC/AC with PEEP: 10 and FIO2 50% . s/p HD yesterday with removal 4.5L. Afebrile. 01/26 Patient is sedated with Fentanyl off versed and Nimbex. s/p bronch yesterday by Dr. Burch. On PRVC/AC with PEEP: 10 and FIO2 down to 50% s/p HD yesterday with removal 1.5. For another HD session today. 01/27 Patient is sedated with Fentanyl and intubated, s/p HD yesterday with removal 4L. Afebrile. On PRVC/AC mode with PEEP; 10 and FIO2 45% 01/28 Patient remains sedated with Fentanyl and intubated. s/p HD yesterday with removal 3L. Placed on Amio drip yesterday for Afib with RVR, 01/29 No acute events overnight. Sedated with Fentanyl and intubated. Afebrile. On PRVC/AC with PEEP: 10 and FIO2 70% decreased to 60% 01/30 No events overnight. Sedated with Diprivan on Amio drip and Cardizem 5mg/ hr. s/p HD yesterday with removal 2L. Spiked fever yesterday with T 101.7 .On PRVC/AC with PEEP: 10, FIO2 65% 01/31: Afebrile. FiO2 at 65%. PEEP at 10. Heart rate between 70 and 130. Cardizem drip at 15 mg an hour. For CT head today. Copious amounts of oral secretions. Minimal via suctioning Subjective: 02/01: Currently afebrile. Heart rate consistently in the 120s to 140s. Cardizem drip back up to 15 mg an hour. More awake and withdrawing right upper , bilateral lower extremities. Moving head side to side. 02/02: Remains intubated and sedated with 15 mcg/min of propofol. In Afib with RVR in HR 130/min. Give additional 15 mg IVx1 and increase drip to 20 mg per hour. Moves L UE spontaneously. PEg and OR trach planned for today Objective Vital Signs Date Time Temp Pulse Resp B/P Pulse Ox O2 Delivery O2 Flow Rate FiO2 02/02/17 06:00 133 02/02/17 04:10 94 45 02/02/17 04:00 143/82 159/74 02/02/17 04:00 98.3 18 Intake and Output 02/01/17 02/01/17 02/02/17 08:00 16:00 00:00 Intake Total 527 ml 692 ml 860 ml Output Total 90 ml 350 ml 265 ml Balance 437 ml 342 ml 595 ml Result Diagram: 02/01/17 0320 02/01/17 0320 Other Results Microbiology Date/Time Procedure Status Source Growth 01/30/17 07:50 Gram Stain - Final Complete Sputum Endotracheal 01/30/17 07:50 Sputum Culture - Final Complete Sputum Endotracheal MODERATE GROWTH NORMAL RESPIRATORY NIEVES 01/30/17 07:50 Urine Culture - Final Complete Urine Catheterized Urine NO GROWTH IN 48 HOURS. Imaging Last Impressions Chest X-Ray 02/01/17 0600 Signed Impressions: Service Date/Time: February 06:38 - CONCLUSION: Improving aeration Daniel Cantu MD Head CT 01/31/17 0000 Signed Impressions: Service Date/Time: Tuesday, January 31, 2017 08:42 - CONCLUSION: 1. 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 Right basal ganglia lacunar infarct is age indeterminate. 2. Maurice sinusitis along with opacification of the middle ears and mastoid air cells bilaterally. Geovanny Lynch MD Abdomen X-Ray 01/21/17 0000 Signed Impressions: Service Date/Time: Saturday, January 21, 2017 08:41 - CONCLUSION: Nondiagnostic study. Gurvinder Collier MD Renal Ultrasound 01/09/17 0000 Signed Impressions: Service Date/Time: Monday, January 09, 2017 13:56 - CONCLUSION: 1. Right kidney is sonographically normal. 2. Benign-appearing 2.4 x 1.5 cm cortical cyst in the midpole of the left kidney. 3. Subcentimeter echogenic, non-shadowing foci in the midpole of the left kidney would be unusual for stones and may represent ectopic hilar fat. No hydronephrosis. 4. Urinary bladder is decompressed with a Alanis catheter. Douglas Ward MD Chest Ultrasound 01/09/17 0000 Signed Impressions: Service Date/Time: Monday, January 09, 2017 08:18 - CONCLUSION: No left-sided pleural effusion. The abnormality in the left chest on chest radiograph is likely related to mucous plugging. When patient had a CT scan yesterday the left lung was well aerated. Edgadro Mayorga MD Chest CT 01/08/17 0600 Signed Impressions: Service Date/Time: Sunday, January 08, 2017 08:46 - CONCLUSION: Massive cardiomegaly with panchamber enlargement extensive coronary calcifications. Stable trace pericardial effusion. Increasing bibasilar consolidative changes with minimal bilateral pleural effusions.. Rhys Fritz MD FACR Thoracentesis 01/08/17 0000 Signed Impressions: Service Date/Time: Sunday, January 08, 2017 16:08 - CONCLUSION: Uncomplicated CT-guided thoracentesis on the right. The left sided thoracentesis was not performed as there was no significant left pleural fluid. The abnormality on most recent chest x-ray was secondary to mucous plugging and left sided atelectasis. Edgardo Mayorga MD Objective Remarks GENERAL: 71-year-old male, critically ill-appearing obese male lying in bed sedated with propofol SKIN: Warm and dry. No rash. Right heel ulcer 2 x 2 centimeters and evolving stage 0 sacral decubitus ulcer HEAD: Atraumatic. Normocephalic. EYES: Pupils equal and round, 5mm and reactive to 4 mm. No scleral icterus. No injection or drainage. ENT: No active bleeding. Clear secretions from mouth with suctioning NECK: Trachea midline. Large right-sided evolving neck hematoma without tracheal shift appears to be softer and less defined than 1 week ago. Evolving ecchymoses. Left subclavian central line is clean dry and intact CARDIOVASCULAR: Tachycardia, Afib with RVR. S1, S2 no S4 without murmur RESPIRATORY: Diminished breath sounds throughout especially in the bases bilaterally. Few crackles in bases bilaterally. Breath sounds equal bilaterally. GASTROINTESTINAL: Abdomen soft, obese non-tender, nondistended. No active bowel sounds MUSCULOSKELETAL: Extremities with 1+ peripheral edema. No obvious deformities. Posterior tibialis is palpable bilaterally. Right femoral Vas-Cath is clean dry and intact NEUROLOGICAL: Positive corneal reflex. Positive gag. Currently withdrawing to pain bilateral lower extremities. Spontaneous movements left upper extremity reported by RN. Upgoing toes. Date of Insertion: January 05, 2017 Date of Insertion: January 17, 2017 Line: Central Venous Catheter Side: Left Location: Subclavian, Jugular A/P Assessment and Plan Neuro/Psych: Lacunar infarcts bilateral basal ganglia, left thalamus Acute metabolic encephalopathy Epistaxis Continue with Diprivan currently at 15 mics grams per kilogram per minute for sedation while intubated Goal of RASS -1, Daily sedation vacation Patient doesn't follow commands off sedation. Completed EEG 01/30 revealed no epileptiform activity. Severe encephalopathy. CT brain 01/31 revealed bilateral basal ganglia and left thalamic CVA. Right basal ganglia CVA indeterminate age Dr. Cole/neurology following 01/12 New onset epistaxis, heparin discontinued until 01/31 but restarted Epistaxis-ENT consulted-nasal balloons in situ maintain balloons until 01/20 per ENT recommendation. Removed 01/20 but resumed bleeding so replaced- 01/21 Both Rhino Rocket balloon removed. ENT has followed- Dr. Byrd. Respiratory: Acute hypoxic respiratory failure Left lung consolidation 2/2 previous event of epistaxis, clotted blood left lung -resolved Probable aspiration Possible multilobar [id number] Bilateral pleural effusions SONU Continue with vent support keep sat >90% On PRVC/AC RR 18, TV 600, IT:1.3, PEEP: 8, FIO2 40%. OR trach by Dr. Bhakat today Currently on DuoNeb scheduled every 6 hours with albuterol every 2 hours as needed ICU vent bundle. Pulmonology following- Dr. uBrch Solu-Medrol 20 mg IV BID, off Flolan 01/08-right CT-guided thoracentesis-400 cc removed, sent for cytology and cultures s/p bronch 01.11 by- Dr. Burch for blood clots left lung Status post bronch 01/17 by furnace combination analyst - bloody mucous plug at saturnino/mainstem section cleared. No obvious source of bleeding. s/p bronch 01/[address] Burch. -minimal secretions. Start SBT 24 hours after trach CV: A. fib with RVR Left atrial appendage thrombus Acute Systolic CHF Cardiomyopathy Hypertension Dyslipidemia Continue with Amio at 200 mg twice a day, Coreg 12.5 mg BID. Monitor HR and BP keep MAP>65mmHg On Cardizem drip 15mg/hr for rate control. Give 15 mg, IV Cardizem bolus and increase drip to 20 mg per hour Give Digoxin 0.25 mg IV x1 01/13- ASA discontinued due to epistaxis. 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 Systolic function reduced. Diffuse hyperkinesis. 12/26 [facility] severe systolic dysfunction EF 1015%, mitral valve mild to moderate regurg, LAE, tricuspid Valve-mild to moderate regurg, small pericardial effusion, 12/19 cardiac cath left circumflex 90% occlusion VLADIMIR EF 15-20%. Management per Cardiology -Dr. Jimenez Patient is at high risk of bleeding with anticoagulation Renal: Acute on chronic kidney disease stage IV Nephrology following-Dr. Jovani Monitor renal function, I/O's, avoid nephrotoxins. Vascath placement Hemodialysis initiated 01/14. s/p HD 01/31 with removal 3L FEN/GI: Morbid obesity Hyperphosphatemia On Tube feeds- Nepro @50ml/hr on hold for PEG today Prevacid for GI prophylaxis Bowel Colace/Senokot twice a day. On Reglan 5 every 8 and erythromycin 200 every 8 for bowel motility/prokinetic PhosLo 667 3 times a day for hyperphosphatemia Heme: Normocytic anemia Thrombocytopenia Transfused 6 units PRBCs since admission Weakly positive HIT panel-CLIFFORD is negative. Repeat 01/30 with HIT negative Due to gross hematuria and epistaxis all anticoagulants on hold. Heparin drip currently restarted, but held for PEG and trach. Hematology is following ID: Likely aspiration pneumonia 01/06 urine, sputum, blood cultures-NGTD 01/06-Legionella urine antigen negative 01/09 - bronchoscopy - yeast/ID to follow 01/12 - blood cultures 2 - no growth 01/20 - blood cultures 2 - staph Epi 09/06 bottles- likely contaminant 01/29 - blood cultures 2 -no growth 01/30 - sputum -immature growth 01/30 - urine -no growth Continue with abx (Zosyn) Given Vanco x1 dose 01/29-Dr. Jade Gage following, Endocrine: Close monitoring per ICU protocol-medium dose regimen -- SSI Accu-Cheks every 6 hours for glycemic control Prophylaxis: GI Prophylaxis Prevacid 30 mg at night DVT Prophylaxis -- SCDs, IV heparin held at midnight for procedures Lines: Peripheral IV's. Right femoral HD catheter 01/19, Left subclavian CVL 01/17 Patient developed hematoma on right side of his neck from previous attempt of central line placement. Dispo: is Olena Muhammad [phone] Poor prognosis given resp failure, severe cardiomyopathy with left atrial thrombus, renal failure on HD, encephalopathy, multiorgan injury. Critical Care: The total critical care time was 35 minutes. Time to perform other separately billable procedures was not included in the critical care time. Chuck Sanchez MD Feb 02, 2017 07:33
[2017-02-02] MEDS ORDERED: DIGOXIN 0.5 MG/2 ML VIAL IV PUSH ONE (07:45)
[2017-02-02 07:56] LABS: APTT (PATIENT) 26.4 SEC (24.3-30.1)
[2017-02-02 07:58] LABS: INTERNATIONAL NORMALIZED RATIO 1.1 RATIO
[2017-02-02 08:17] LABS: AUTOMATED NEUTROPHIL # 4.4 TH/MM3 (1.8-7.7); BASOPHIL # 0.1 TH/MM3 (0-0.2); BASOPHIL % 1.1 % (0.0-2.0); EOSINOPHIL # 0.2 TH/MM3 (0-0.4); EOSINOPHIL % 3.8 % (0.0-4.0); HEMATOCRIT 28.3 % (39.0-51.0); HEMO FLAGS AUTO DIFF; LYMPH % 3.8 % (9.0-44.0); LYMPHOCYTE # 0.2 TH/MM3 (1.0-4.8); MEAN CELL VOLUME 88.4 FL (80.0-100.0); MEAN CORPUSCULAR HEMOGLOBIN 29.2 PG (27.0-34.0); NEUT % 86.3 % (16.0-70.0); PLATELET COUNT 94 TH/MM3 (150-450); RED CELL DISTRIBUTION WIDTH 17.6 % (11.6-17.2); WHITE BLOOD COUNT 5.1 TH/MM3 (4.0-11.0)
[2017-02-02 08:21] LABS: ALT (GPT) 39 U/L (12-78); ANION GAP 15 MEQ/L (5-15); AST (GOT) 12 U/L (15-37); BICARBONATE 24.8 MEQ/L (21.0-32.0); BLOOD UREA NITROGEN 97 MG/DL (7-18); CHLORIDE 98 MEQ/L (98-107); GLOMERULAR FILTRATION RATE 13 ML/MIN (>89); MAGNESIUM 2.6 MG/DL (1.5-2.5); POTASSIUM 3.5 MEQ/L (3.5-5.1); SODIUM (NA) 138 MEQ/L (136-145)
[2017-02-02 08:28] LABS: ALKALINE PHOSPHATASE 65 U/L (45-117); TOTAL BILIRUBIN ADULT 0.7 MG/DL (0.2-1.0)
[2017-02-02] MEDS: SENNOSIDES SYRUP 8.8 MG/5 ML CUP PO SCH ×2 (09:00→19:58)
[2017-02-02] MEDS: DOCUSATE SODIUM 100 MG/10 ML UDC PO SCH ×2 (09:00→19:58)
[2017-02-02] MEDS: CARVEDILOL 12.5 MG TAB PO SCH ×2 (09:00→19:58)
[2017-02-02] MEDS: CALCIUM ACETATE 667 MG CAP PO SCH ×3 (09:00→18:00)
[2017-02-02] MEDS: LACTULOSE SYRUP 20 GM/30 ML CUP PO SCH (09:00)
[2017-02-02] MEDS: DILTIAZEM INJ 125 MG in SODIUM CHLORIDE 0.9% INJ 100 ML IV SCH (09:04)
[2017-02-02] MEDS: LANSOPRAZOLE SOLUTAB 30 MG TAB NG SCH (09:05)
[2017-02-02] MEDS: SODIUM CHLORIDE 0.9% FLUSH 10 ML FLUSH IVF SCH (09:05)
[2017-02-02] MEDS: predniSONE 10 MG TAB PO SCH ×2 (09:05→19:59)
[2017-02-02] MEDS: AMIODARONE 200 MG TAB PO SCH ×2 (09:05→19:59)
[2017-02-02] MEDS: SODIUM CHLORIDE 0.9% FLUSH 10 ML FLUSH IV FLUSH SCH ×2 (09:05→20:00)
[2017-02-02 09:10] LABS: PLATELET ESTIMATE SMEAR LOW (NORMAL); PLATELET MORPHOLOGY NORMAL (NORMAL); SCAN/DIFF AUTO DIFF CONFIRMED
--- NOTE | 2017-02-02 10:36 | HHI.NPPN ---
Subjective General Problems: Anemia, Edema, Heart Disease Renal Failure: Acute History of Present Illness 71-year-old the white male the who is transferred from [facility] to [facility] due to atrial fibrillation with fast ventricular response, he was in the heart catheterization lab and became unstable has to intubated the patient has chronic kidney disease, Cardiomyopathy ejection fraction of only 15% and has severe dilated cardiomyopathy with the clot in left atrium he is on heparin drip and currently on ventilator. Additional Remarks Patient remain on the vent. intubated Objective Data Data 02/01/17 02/02/17 18:59 06:59 Intake Total 692 ml 1300 ml Output Total 350 ml 525 ml Balance 342 ml 775 ml IV Total 347 ml 614 ml Tube Feeding 245 ml 486 ml Tube Irrigant 100 ml Other 200 ml Output Urine Total 150 ml 25 ml Stool Total 200 ml 500 ml Vital Signs Date Time Temp Pulse Resp B/P Pulse Ox O2 Delivery O2 Flow Rate FiO2 02/02/17 08:00 40 02/02/17 07:55 94 40 02/02/17 06:00 133 02/02/17 04:10 94 45 02/02/17 04:00 89 02/02/17 04:00 89 143/82 159/74 02/02/17 04:00 40 02/02/17 04:00 98.3 89 18 143/82 95 159/74 02/02/17 02:00 84 02/02/17 01:15 96 45 02/02/17 00:00 81 114/74 116/54 02/02/17 00:00 81 02/02/17 00:00 98.3 81 18 114/74 97 116/54 02/02/17 00:00 40 02/01/17 22:08 96 45 02/01/17 22:00 80 02/01/17 20:00 86 02/01/17 20:00 82 133/76 139/57 02/01/17 20:00 40 02/01/17 20:00 97.8 82 19 133/76 100 139/57 02/01/17 19:57 98 45 02/01/17 18:00 83 02/01/17 16:00 77 108/67 118/62 02/01/17 16:00 50 02/01/17 16:00 77 02/01/17 16:00 98.2 77 18 108/67 97 118/62 02/01/17 15:01 96 45 02/01/17 14:00 80 02/01/17 12:00 79 02/01/17 12:00 50 02/01/17 12:00 99.2 79 19 134/77 100 142/60 02/01/17 12:00 79 134/77 142/60 02/01/17 11:16 100 50 -: 02/02/17 0740 02/02/17 0740 Physical Exam General Appearance: Well Developed Eyes Eye Exam: Pupils Equal Throat Throat Exam: Oral Mucosa [place] & Moist Pulmonary Resp Exam: Rhonchi, Decreased Bases, Diminished Breath Sounds Cardiology CV Exam: Arrhythmia Gastrointestinal/Abdomen GI Exam: Soft, Non-Tender, Distended Extremeties Extremities Exam: Moderate Edema, Pitting Edema, Dependent Edema Neurologic Neuro Exam: Sedated Assessment/Plan Problem List: (1) Acute renal failure Plan: Patient urine out put is low He has poor ejection fraction and is intubated Severe cardiomyopathy prognosis is guarded. hemodialysis seen during treatment UF 3 L dialysis issues with clotting, repeat HIT negative can use Heparin per Hematology during dialysis CT Head Lacunar infarcts, L thalamus infarct old, CVA multiple co morbidities, Urine out put remain low. BUN and Creatinine higher (2) CKD (chronic kidney disease) stage 4, GFR 15-29 ml/min Plan: Has high creatinine kidney ultrasound reviewed (3) CHF (congestive heart failure) Plan: Severe cardiomyopathy EF 15% (4) Atrial fibrillation with rapid ventricular response Plan: Has a blood clot in LA appendage (5) Thrombocytopenia Plan: platelets low Problem Qualifiers (1) CHF (congestive heart failure): Christa Hahn MD Feb 02, 2017 10:35
[2017-02-02] MEDS: GENTAMICIN SULFATE (DIALYSIS USE ONLY) 20 MG/2 ML VIAL IV PRN (11:49)
[2017-02-02] MEDS: EPOETIN ALFA 4,000 UNITS/ML VIAL IV PRN (11:50)
[2017-02-02] MEDS ORDERED: VASOPRESSIN INJ 20 UNITS/ML VIAL IV ONE (12:00)
[2017-02-02] MEDS ORDERED: SODIUM CHLORID 0.9% 500 ML INJ 500 ML IV ONE (12:00)
--- NOTE | 2017-02-02 12:36 | HHI.PR ---
Subjective Remarks Seems awake and opens eyes ,and on Vent support ,now on PEEP 8. FIO2 at 40 %. . CXR is better. Had dialysis . No response to commands Objective Vital Signs Date Time Temp Pulse Resp B/P Pulse Ox O2 Delivery O2 Flow Rate FiO2 02/02/17 11:53 98 40 02/02/17 08:00 40 02/02/17 07:55 94 40 02/02/17 06:00 133 02/02/17 04:10 94 45 02/02/17 04:00 89 02/02/17 04:00 89 143/82 159/74 02/02/17 04:00 40 02/02/17 04:00 98.3 89 18 143/82 95 159/74 02/02/17 02:00 84 02/02/17 01:15 96 45 02/02/17 00:00 81 114/74 116/54 02/02/17 00:00 81 02/02/17 00:00 98.3 81 18 114/74 97 116/54 02/02/17 00:00 40 02/01/17 22:08 96 45 02/01/17 22:00 80 02/01/17 20:00 86 02/01/17 20:00 82 133/76 139/57 02/01/17 20:00 40 02/01/17 20:00 97.8 82 19 133/76 100 139/57 02/01/17 19:57 98 45 02/01/17 18:00 83 02/01/17 16:00 77 108/67 118/62 02/01/17 16:00 50 02/01/17 16:00 77 02/01/17 16:00 98.2 77 18 108/67 97 118/62 02/01/17 15:01 96 45 02/01/17 14:00 80 I/O 02/01/17 02/01/17 02/01/17 02/02/17 02/02/17 02/02/17 07:00 15:00 23:00 07:00 15:00 23:00 Intake Total 527 ml 692 ml 860 ml 440 ml Output Total 90 ml 350 ml 265 ml 260 ml 3000 ml Balance 437 ml 342 ml 595 ml 180 ml -3000 ml Intake Oral 0 ml IV Total 221 ml 347 ml 374 ml 240 ml Tube Feeding 306 ml 245 ml 386 ml 100 ml Tube Irrigant 100 ml Other 100 ml 100 ml Output Urine Total 40 ml 150 ml 15 ml 10 ml Stool Total 50 ml 200 ml 250 ml 250 ml Hemodialysis 3000 ml Result Diagram: 02/02/1773902/02/17739 Objective Remarks GENERAL: This is an obese, elderly man who is intubated,and on the vent HEENT: Head is normocephalic. Pupils are reactive. NECK Neck supple. Trachea is midline. CHEST: Occ crackles at both lung bases. Decreased breath sounds at bases HEART: The heart sounds are irregular S1-S2. No murmur. ABDOMEN: Soft. Obese without masses. No organomegaly. EXTREMITIES: No edema. Decreased peripheral pulses. Reflexes are not elicited. The patient is lethargic SKIN: Dry and cool. Assessment and Plan Assessment and Plan IMPRESSION 1. Hypoxic respiratory failure. 2. Left lower lobe atelectasis and possible pneumonia with aspiration. 3. Left pleural effusion resolved. 4. Cardiomyopathy and congestive heart failure. 5. Obstructive sleep apnea. 6. Diabetes mellitus. 7. Atrial fibrillation. 8. Nasopharyngeal bleed Plan : 1. Wean FIO2 to keep sat >90. 2. PEEP at 8 CM, FIO2 to 40 % 3. Antibiotics per ID. 4. CBC ,BMP in am. 5. Nebs qid , duoneb. 6. Trach suction and Lavage 7. Tube feeds at 50 CC 8. Prednisone 20 mg daily 9. Dialysis per renal. 10. Plan Tracheostomy soon/ Surgery consult Julius Burch MD Feb 02, 2017 12:36
[2017-02-02] MEDS ORDERED: METOPROLOL TARTRATE 5 MG/5 ML VIAL IV PUSH ONE (13:00)
[2017-02-02] MEDS ORDERED: MIDAZOLAM HCL 2 MG/2 ML VIAL ONE (13:52)
[2017-02-02] MEDS ORDERED: KETAMINE HCL 500 MG/5 ML VIAL ONE (13:53)
[2017-02-02] MEDS ORDERED: fentaNYL CITRATE 250 MCG/5 ML AMP ONE (13:53)
[2017-02-02 14:50] LABS: BLOOD GAS BASE EXCESS 1.4 mmol/L (-2-2); BLOOD GAS HCO3 25 mmol/L (22-26); BLOOD GAS METHEMOGLOBIN 1.3 % (0-2); BLOOD GAS O2 HGB SATURATION 84 % (90-100); BLOOD GAS OXYGEN CONTENT 14.5 Vol % (12.0-20.0); BLOOD GAS PCO2 37 mmHg (38-42); BLOOD GAS PO2 56 mmHg (61-120); BLOOD GAS TOTAL HGB 12.4 G/DL (12.0-16.0); TEMP CORR TO 98.6
[2017-02-02 14:52] LABS: CRITICAL VALUE YES; DRAW SITE OR DRAW; FIO2 50 %; STAT YES
[2017-02-02] MEDS ORDERED: THROMBIN (TOPICAL) 5,000 UNIT VIAL ONE (15:01)
--- NOTE | 2017-02-02 15:58 | GIPROC ---
[facility] [address] [facility]. [facility], [id number] EGD PROCEDURE REPORT EXAM DATE: 02/02/2017 PATIENT NAME: Patrick Palmer MR #: [id number] BIRTHDATE: 1945 ATTENDING: Kaushik Cancino MD ORDER #: [id number] ZOOLOGY PROFESSOR: Jose Pinzon and Joe Rosario STATUS: inpatient INDICATIONS: The patient is a 71 yr old male here for an EGD due to PEG Replacement PROCEDURE PERFORMED: Panendoscopy with PEG MEDICATIONS: Per Anesthesia and None. TOPICAL ANESTHETIC: none CONSENT: The patient understands the risks and benefits of the procedure and understands that these risks include, but are not limited to: sedation, allergic reaction, infection, perforation and/or bleeding. Alternative means of evaluation and treatment include, among others: physical exam, x-rays, and/or surgical intervention. The patient elects to proceed with this endoscopic procedure. medical equipment was checked for proper function. Hand hygiene and appropriate measures for infection prevention was taken. After the risks, benefits and alternatives of the procedure were thoroughly explained, Informed consent was verified, confirmed and timeout was successfully executed by the treatment team. The patient was anesthetized with topical anesthesia and the Pentax EG-[id number] endoscope was introduced through the mouth and advanced to the second portion of the duodenum. Retroflexion was performed and was normal The gastroscope was then slowly withdrawn and removed. ESOPHAGUS: The esophagus was otherwise normal. STOMACH: The stomach otherwise appeared normal. DUODENUM: The duodenal mucosa appeared normal in the 2nd part of the duodenum. PEG tube placed successfully (20 F 3.5 CM skin depth). ADVERSE EVENTS: There were no complications. IMPRESSIONS: 1. The esophagus was otherwise normal 2. The stomach otherwise appeared normal 3. Normal duodenal mucosa in the 2nd part of the duodenum 4. PEG tube placed successfully (20F) RECOMMENDATIONS: PEG recomendations: 1- NPO for 6 hours except for meds 2- Flush PEG tube every 6 hours with water and after each PEG feeding 3- May resume regular diet in the morning 4- May use Ensure or Boost etc. for PEG tube feeding PATIENT CONDITION: stable DISPOSITION: Observation REPEAT EXAM: NONE Kaushik Cancino MD eSigned: Kaushik Cancino MD 02/02/2017 3:57 PM cc:
--- NOTE | 2017-02-02 17:56 | RADRPT ---
EXAM DATE/TIME: 02/02/2017 17:18 [facility] COMPARISON: CHEST SINGLE AP, February 01, 2017, 6:38. INDICATIONS : Status post tracheostomy, evaluate for pneumothorax. MEDICAL HISTORY : Hypertension. SURGICAL HISTORY : Coronary artery stent. ENCOUNTER: Subsequent ACUITY: 1 day PAIN SCORE: Non-responsive. LOCATION: chest FINDINGS: A single frontal expiratory view of the chest was performed. There continues to be improved aeration in the lung bases, especially on the right where there appears to be a resolving effusion. Persistent effusion on the left bibasilar airspace disease. No pneumothorax. Heart size remains prominent. Endo tracheal tube is been removed and replaced with a tracheostomy tube. The tip of the tracheostomy is a bruptly positioned at the clavicular heads. Left subclavian central venous catheter is unchanged in p osition with the tip at the junction of the left and right brachiocephalic veins. Osseous structures are intact. CONCLUSION: 1. No pneumothorax post tracheostomy tube placement. 2. Improving aeration in the bases with a resolving right-sided effusion. Persistent left-sided effus ion with associated bibasilar atelectatic changes. Douglas Ward MD on February 02, 2017 at 17:50 Board Certified Radiologist. This report was verified electronically.
--- NOTE | 2017-02-02 19:08 | HHI.PR ---
Subjective Remarks Seems awake and opens eyes ,and on Vent support ,now on PEEP 8. FIO2 at 40 %. . CXR is better. Had dialysis . No real response to commands . Objective Vital Signs Date Time Temp Pulse Resp B/P Pulse Ox O2 Delivery O2 Flow Rate FiO2 02/02/17 18:00 130 02/02/17 16:17 93 60 02/02/17 16:00 98 145/88 139/75 02/02/17 16:00 60 02/02/17 16:00 98 02/02/17 16:00 98.5 98 18 145/88 91 139/75 02/02/17 14:11 100 100 02/02/17 14:00 116 02/02/17 12:00 120 135/77 143/68 02/02/17 12:00 40 02/02/17 12:00 99.6 120 18 135/77 97 143/68 02/02/17 12:00 120 02/02/17 11:53 98 40 02/02/17 10:00 88 02/02/17 08:00 98.7 134 18 138/95 93 150/79 02/02/17 08:00 134 02/02/17 08:00 134 138/95 150/79 02/02/17 08:00 40 02/02/17 07:55 94 40 02/02/17 06:00 133 02/02/17 04:10 94 45 02/02/17 04:00 89 02/02/17 04:00 89 143/82 159/74 02/02/17 04:00 40 02/02/17 04:00 98.3 89 18 143/82 95 159/74 02/02/17 02:00 84 02/02/17 01:15 96 45 02/02/17 00:00 81 114/74 116/54 02/02/17 00:00 81 02/02/17 00:00 98.3 81 18 114/74 97 116/54 02/02/17 00:00 40 02/01/17 22:08 96 45 02/01/17 22:00 80 02/01/17 20:00 86 02/01/17 20:00 82 133/76 139/57 02/01/17 20:00 40 02/01/17 20:00 97.8 82 19 133/76 100 139/57 02/01/17 19:57 98 45 I/O 02/01/17 02/01/17 02/01/17 02/02/17 02/02/17 02/02/17 07:00 15:00 23:00 07:00 15:00 23:00 Intake Total 527 ml 692 ml 860 ml 440 ml 366 ml Output Total 90 ml 350 ml 265 ml 260 ml 3250 ml Balance 437 ml 342 ml 595 ml 180 ml -2884 ml Intake Oral 0 ml IV Total 221 ml 347 ml 374 ml 240 ml 366 ml Tube Feeding 306 ml 245 ml 386 ml 100 ml Tube Irrigant 100 ml Other 100 ml 100 ml Output Urine Total 40 ml 150 ml 15 ml 10 ml 100 ml Stool Total 50 ml 200 ml 250 ml 250 ml 150 ml Hemodialysis 3000 ml Result Diagram: 02/02/1773902/02/17739 Objective Remarks GENERAL: This is an obese, elderly man who is intubated,and on the vent HEENT: Head is normocephalic. Pupils are reactive. NECK Neck supple. Trachea is midline. CHEST: Occ crackles at both lung bases. Occ wheeze .Decreased breath sounds at bases HEART: The heart sounds are irregular S1-S2. No murmur. ABDOMEN: Soft. Obese without masses. No organomegaly. EXTREMITIES: No edema. Decreased peripheral pulses. Reflexes are not elicited. The patient is lethargic SKIN: Dry and cool. Assessment and Plan Assessment and Plan IMPRESSION 1. Hypoxic respiratory failure. 2. Left lower lobe atelectasis and possible pneumonia with aspiration. 3. Left pleural effusion resolved. 4. Cardiomyopathy and congestive heart failure. 5. Obstructive sleep apnea. 6. Diabetes mellitus. 7. Atrial fibrillation. 8. Nasopharyngeal bleed Plan : 1. Wean FIO2 to keep sat >90. 2. PEEP at 8 CM, FIO2 to 50 % 3. Antibiotics per ID. 4. CBC ,BMP in am. 5. Nebs qid , duoneb. 6. Trach suction and Lavage 7. Tube feeds at 50 CC 8. Cont Prednisone 20 mg daily 9. Dialysis per renal. 10. Plan Tracheostomy soon/ Surgery consult Julius Burch MD Feb 02, 2017 19:08
[2017-02-03] VITALS (30 sets, daily range): BP systolic 94–157; BP diastolic 54–102; PULSE 79–151; RESP 17–30; TEMP 98.7–100.6; O2SAT 91–99
[2017-02-03] MEDS: RESP: ALBUTEROL 2.5 MG/IPRATROPIUM 0.5 MG NEB (SCH) NEB ×7 (00:28→22:00)
[2017-02-03] MEDS: PROPOFOL 1000 MG/100 ML IV SCH ×2 (03:18→06:52)
[2017-02-03] MEDS: CHLORHEXIDINE GLUCONATE 2 % 1 PACK (2 CLOTHS) TOP SCH (04:00)
--- NOTE | 2017-02-03 04:14 | RADRPT ---
EXAM DATE/TIME: 02/03/2017 03:04 [facility] COMPARISON: CHEST EXPIRATION ONLY, February 02, 2017, 17:18. INDICATIONS : Shortness of breath, possible pulmonary disease. MEDICAL HISTORY : Hypertension. SURGICAL HISTORY : Coronary artery stent. ENCOUNTER: Subsequent ACUITY: 1 month PAIN SCORE: Non-responsive. LOCATION: Bilateral chest FINDINGS: Bilateral pleural effusions are present and there is slight worsening of pulmonary edema since the pr ior study. Bibasilar consolidation worse on the left is also seen. Tracheostomy tube is present in sa tisfactory position. Left subclavian line is present with tip overlapping the expected region of the SVC.The rest of the examination has not significantly changed. CONCLUSION: Worsening volume overload. Kaylah Schroeder MD on February 03, 2017 at 4:12 Board Certified Radiologist. This report was verified electronically.
[2017-02-03] MEDS: PIPERACIL-TAZO 2.25 GM PREMIX 50 ML IV SCH ×3 (05:01→20:03)
[2017-02-03] MEDS: ARTIFICIAL TEARS OPTH SOLN 15 ML BTL EACH EYE SCH ×3 (05:01→20:11)
[2017-02-03] MEDS: METOCLOPRAMIDE HCL 10 MG/2 ML VIAL IV PUSH SCH ×2 (05:01→14:17)
[2017-02-03] MEDS: DILTIAZEM INJ 125 MG in SODIUM CHLORIDE 0.9% INJ 100 ML IV SCH ×4 (05:02→21:57)
[2017-02-03 05:17] LABS: AUTOMATED NEUTROPHIL # 3.6 TH/MM3 (1.8-7.7); BASOPHIL % 0.5 % (0.0-2.0); EOSINOPHIL # 0.3 TH/MM3 (0-0.4); EOSINOPHIL % 7.2 % (0.0-4.0); HEMATOCRIT 26.9 % (39.0-51.0); LYMPH % 5.2 % (9.0-44.0); LYMPHOCYTE # 0.2 TH/MM3 (1.0-4.8); MEAN CELL VOLUME 88.8 FL (80.0-100.0); MEAN CORPUSCULAR HEMOGLOBIN 30.2 PG (27.0-34.0); MONO % 5.4 % (0.0-8.0); NEUT % 81.7 % (16.0-70.0); PLATELET COUNT 101 TH/MM3 (150-450); RED BLOOD COUNT 3.03 MIL/MM3 (4.50-5.90); RED CELL DISTRIBUTION WIDTH 17.7 % (11.6-17.2); WHITE BLOOD COUNT 4.4 TH/MM3 (4.0-11.0)
[2017-02-03 05:32] LABS: HEMO FLAGS AUTO DIFF
[2017-02-03 05:36] LABS: ALKALINE PHOSPHATASE 64 U/L (45-117); ALT (GPT) 35 U/L (12-78); ANION GAP 11 MEQ/L (5-15); AST (GOT) 14 U/L (15-37); BICARBONATE 28.7 MEQ/L (21.0-32.0); BLOOD UREA NITROGEN 66 MG/DL (7-18); CHLORIDE 100 MEQ/L (98-107); GLOMERULAR FILTRATION RATE 15 ML/MIN (>89); MAGNESIUM 2.5 MG/DL (1.5-2.5); POTASSIUM 3.6 MEQ/L (3.5-5.1); SODIUM (NA) 140 MEQ/L (136-145); TOTAL BILIRUBIN ADULT 0.7 MG/DL (0.2-1.0)
[2017-02-03] MEDS: INSULIN ASPART SUPPLEMENTAL SCALE SQ SCH ×4 (05:37→17:39)
[2017-02-03 06:05] LABS: EOSINOPHILS 3 % (0-4); NEUTROPHIL # MANUAL DIFF 3.9 TH/MM3 (1.8-7.7); POLYS (SEG NEUTROPHILS) 87 % (16-70); PROMYELOCYTES 2 % (0-0); WBC DIFF SAMPLE 100
[2017-02-03 06:06] LABS: PLATELET ESTIMATE SMEAR LOW (NORMAL); PLATELET MORPHOLOGY NORMAL (NORMAL); SCAN/DIFF FINAL DIFF MANUAL
[2017-02-03] MEDS: DOCUSATE SODIUM 100 MG/10 ML UDC PO SCH ×2 (08:25→20:03)
[2017-02-03] MEDS: SENNOSIDES SYRUP 8.8 MG/5 ML CUP PO SCH ×2 (08:25→20:04)
[2017-02-03] MEDS: LACTULOSE SYRUP 20 GM/30 ML CUP PO SCH (08:25)
[2017-02-03] MEDS: CALCIUM ACETATE 667 MG CAP PO SCH ×3 (08:25→17:33)
[2017-02-03] MEDS: AMIODARONE 200 MG TAB PO SCH ×2 (08:26→20:03)
[2017-02-03] MEDS: LANSOPRAZOLE SOLUTAB 30 MG TAB NG SCH (08:26)
[2017-02-03] MEDS: predniSONE 10 MG TAB PO SCH ×2 (08:26→20:04)
[2017-02-03] MEDS: CARVEDILOL 12.5 MG TAB PO SCH ×2 (08:26→20:04)
[2017-02-03] MEDS: SODIUM CHLORIDE 0.9% FLUSH 10 ML FLUSH IVF SCH (08:27)
[2017-02-03] MEDS: CHLORHEXIDINE 0.12% (ORAL KIT) 15 ML CUP MT SCH ×2 (08:27→20:00)
[2017-02-03] MEDS: SODIUM CHLORIDE 0.9% FLUSH 10 ML FLUSH IV FLUSH SCH ×2 (08:27→20:03)
[2017-02-03] MEDS ORDERED: LORazepam 2 MG/ML VIAL IV PUSH PRN (10:00)
--- NOTE | 2017-02-03 10:00 | HHI.CCPN ---
Subjective Remarks/Hospital Course This is a 71-year-old gentleman that presented to [facility] secondary to dyspnea and atrial fibrillation with RVR. The patient has a medical history significant for obesity and hypertension. During his hospitalization at [facility], the patient underwent an echocardiogram which showed severe systolic dysfunction with an ejection fraction of 1015 % the patient then underwent a cardiac catheterization showing significance with left circumflex 90%. The patient underwent multiple attempts of unsuccessful synchronized cardioversion. The patient also underwent medical management with beta blockers, and calcium channel blockers that were also unsuccessful. The patient was transferred to [facility] for cardiac ablation with Dr. Jimenez. The patient was scheduled for cardiac ablation, the procedure was canceled. The patient required emergent intubation and required ventilator management a VLADIMIR was performed showing a clot in the left atrial appendage. The patient was placed on IV Cardizem, and an amiodarone infusion. Critical Care medicine was consulted for management. 01/06: Tmax 97.4. The patient remained on elevated vent settings with FiO2 of 1.0 overnight, PEEP requirements were increased to 8, to maintain a PaO2 of greater than [address] scan of the chest was obtained which noted bilateral effusions small, basilar consolidations right worse than the left, and a loculated area representing a possible pneumonia process, empyema, as well as aspiration or just loculated fluid as well as a small pericardial effusion. The patient continues on Cardizem and amiodarone infusions with a heart rate overnight 80s -115. The patient's vasopressor requirements of phenylephrine diminished to 20 mcgs. 01/07: Tmax 99.2. Yesterday the central line was placed for vasoactive medications and CVP monitoring, small hematoma noted near the right IJ area soft no compression of major vessels, with resolution of bleeding in that area. Phenylephrine was discontinued yesterday. The patient heart rate remains today [id number]. Cardizem infusion has been discontinued in the setting of EF of 10-15%. Esmolol infusion to be initiated this a.m.. Coumadin was initiated last night now placed on hold due to patient bleeding from nasopharynx and oropharynx. INR currently 1.2. Plan for CT thorax tomorrow, with possible IR intervention versus CVT consultation for possible empyema the patient will remain on heparin infusion, and transition onto Coumadin after any potential procedures to be initiated. Chest x-ray slightly improved FiO2 decreasing now 70%. Sedation vacation yesterday revealed GCS 11 T, patient alert responsive following commands. With initiation of antibiotics, leukocytosis resolved. ID consulted Dr. Gage. Blood cultures are pending. 01/08: Patient's heart rate 110-[address] scan of the chest imaging revealed fluid. Plan for thoracentesis and and studies of pleural fluid , this afternoon. The patient remains on amiodarone and heparin infusions, per cardiology. Heparin held, for thoracentesis this afternoon, and then will be resumed. The patient was maintained on CPAP trial for approximately one hour yesterday. During sedation vacation patient was alert following commands recognizing family. Plan to resume CPAP trials this afternoon post thoracentesis. 01/09: The patient underwent CT-guided thoracentesis yesterday , on the right side noted 400 cc of fluid was removed , with specimens ordered to be sent for evaluation .This morning chest x-ray performed showing almost complete opacification of the left lung. FiO2 requirements increase patient on FiO2 of 80%, O2 sat 94%. Left chest ultrasound obtained revealing no fluid. Consent obtained BAL performed, revealing emanating from the nearest previously ( patient was noted to have epistaxis with initiation of heparin on 01/06). Blood clots noted in left lung upon visualization with bronchoscopy, saline lavage applied, minimal blood clots removed. The patient was initiated on Mucomyst 10% , and pulmonology was consulted. Dr. Tasia Lama following. The patient shows no signs or evidence of bleeding actively, plan to consult ENT if signs of active bleeding become evident. Hemoglobin remains stable.The patient converted into sinus rhythm is today afternoon. Cardiology management of medications, IV amiodarone discontinued this afternoon. 01/10: Tmax 99.0. Chest x-ray shows slight improvement of left lung today. Plan for repeat bronchoscopy per Dr. Burch this a.m, and the patient continues on Mucomyst. The patient's cardiac rhythm reverted to A. fib last evening, amiodarone IV infusion reinstituted per Dr. Jimenez. 01/11: TMax 100.0. Much improved chest x-ray this morning. The patient continues in A. fib with a rate of 120, he continues on amiodarone, heparin infusion per cardiology. No evidence of active bleeding. 5/12 Patient Remains sedated with Diprivan, intubated. T:99.9. On Neosyn 15 mics , heparin and Amio drips. In Afib with RRV. Patient s/p repeat bronch with BAL yesterday by Dr. Burch and ETT replacement by Dr. Sanchez. On PC/AC with PEEP:14 , FIO2 100%. 01/13: TMax 100.2. Last night the nurse reported that the patient had a small amount of epistaxis, and blood in the oropharynx noted. The area continued to bleed during the night. ENT has been consulted. Heparin has been placed on hold , ASA has been discontinued in the setting of acute renal failure. The patient continues on amiodarone infusion , heart rate 120's. Neosynephrine has been discontinued, and Levophed instituted. Creatinine noted to be 4.5. As per report , states patient does not want dialysis. The patient continues on elevated PEEP of 14. 5/14: Heparin was discontinued yesterday in the setting of continued bleeding in the nasal/ oropharyngeal region. ENT was consulted and nasal packing was applied. During the night the patient still had small noted amount of bleeding from the oropharyngeal area plan today for oropharyngeal packing. Hgb 9, will transfuse .The patient was placed on norepinephrine for currently at 1-2 mcgs per minute. PEEP has been decreased to 12, with adequate oxygenation a PaO2 of 71. 5/15: Tmax 99.0. The patient continues to be anemic and thrombocytopenic, contributory factors being uremia. The patient's /family decided to pursue hemodialysis at this point. The patient received 1 unit of packed red blood cells yesterday. The patient was initiated on dialysis yesterday afternoon, with approximately 3 L removed. Nasal gauze packing removed and placement of nasal balloons by ENT yesterday. Oral gauze packing to be removed today. The patient received 2 separate doses of digoxin, A. fib heart rate ranging 80- < 120. The patient continues to have high ventilatory requirements, FiO2 was increased throughout the night to currently 80%, to maintain O2 sat greater than 92%. 01/16: FiO2 at 85%. Large clots removed from oropharynx overnight. Transfused 2 units PRBCs yesterday. No bowel movement. Tolerating tube feeds at 40 cc now with Nepro 01/17: Maximum 100.6. CURRENT TEMPERATURE 98.1. Central line pulled out yesterday. Flolan initiated yesterday and FiO2 down to 65%. Tolerating tube feeds. No bowel movement. Arousable weakly follow commands yesterday 01/18: Tmax 99.8. Currently afebrile. Initially, hemoptysis with desaturation requiring bronchoscopy. See bronchoscopy note. Roto-Rest bed ordered. FiO2 from 100-70% currently. On Nimbex drip. No BM. Tolerating tube feeds. 01/19: Afebrile. FiO2 down to 40%. We will attempt a wean Flolan today. On Nimbex drip. Positive BM yesterday. Tolerating tube feeds. 01/20: FiO2 back to 100%. Flolan "fell off "overnight. Ventilator adjusted back to 100%. Flolan reinstituted. Chest x-ray and ABG pending. Tolerating tube feeds. Positive BM. Afebrile. 01/21: Intolerant of tube feeding. KUB pending. Afebrile. Bleeding from bilateral nares and Alanis overnight. Argatroban has been held. Positive BM. 01/22 Patient is sedated with Fentanyl , versed in addition he is on Nimbex. Receiving HD. TF on hold for high residuals. 01/23 Patient is on Roto prone bed sedated and intubated. s/p HD yesterday with removal 3L. On Nimbex, afebrile. 01/24 Patient remains sedated with Versed, Fentanyl and remains on Nimbex. On PC/ AC with PEEP: 10, FIO2 down 40%. For HD today. Afebrile. 01/25 Patient remains sedated and intubated . On PC/AC with PEEP: 10 and FIO2 50% . s/p HD yesterday with removal 4.5L. Afebrile. 01/26 Patient is sedated with Fentanyl off versed and Nimbex. s/p bronch yesterday by Dr. Burch. On PRVC/AC with PEEP: 10 and FIO2 down to 50% s/p HD yesterday with removal 1.5. For another HD session today. 01/27 Patient is sedated with Fentanyl and intubated, s/p HD yesterday with removal 4L. Afebrile. On PRVC/AC mode with PEEP; 10 and FIO2 45% 01/28 Patient remains sedated with Fentanyl and intubated. s/p HD yesterday with removal 3L. Placed on Amio drip yesterday for Afib with RVR, 01/29 No acute events overnight. Sedated with Fentanyl and intubated. Afebrile. On PRVC/AC with PEEP: 10 and FIO2 70% decreased to 60% 01/30 No events overnight. Sedated with Diprivan on Amio drip and Cardizem 5mg/ hr. s/p HD yesterday with removal 2L. Spiked fever yesterday with T 101.7 .On PRVC/AC with PEEP: 10, FIO2 65% 01/31: Afebrile. FiO2 at 65%. PEEP at 10. Heart rate between 70 and 130. Cardizem drip at 15 mg an hour. For CT head today. Copious amounts of oral secretions. Minimal via suctioning 02/01: Currently afebrile. Heart rate consistently in the 120s to 140s. Cardizem drip back up to 15 mg an hour. More awake and withdrawing right upper , bilateral lower extremities. Moving head side to side. 02/02: Remains intubated and sedated with 15 mcg/min of propofol. In Afib with RVR in HR 130/min. Give additional 15 mg IVx1 and increase drip to 20 mg per hour. Moves L UE spontaneously. PEg and OR trach planned for today 02/03: Patient is status post trach and PEG yesterday 02-17. Currently remains on propofol and Cardizem infusions. Off all pressors. Rate control is improved, but still 100-110. Will increase carvedilol and start digoxin for improved rate control. Chest x-ray shows evidence of fluid overload, patient remains oliguric Objective Vital Signs Date Time Temp Pulse Resp B/P Pulse Ox O2 Delivery O2 Flow Rate FiO2 02/03/17 08:00 50 02/03/17 07:45 96 02/03/17 06:00 120 02/03/17 04:00 113/73 113/66 02/03/17 04:00 98.7 18 Intake and Output 02/02/17 02/02/17 02/03/17 08:00 16:00 00:00 Intake Total 440 ml 366 ml 472 ml Output Total 260 ml 3250 ml 165 ml Balance 180 ml -2884 ml 307 ml Result Diagram: 02/03/17 0453 02/03/17 0453 Other Results Laboratory Tests Test 02/02/17 14:32 Blood Gas Puncture Site OR DRAW Blood Gas Patient Temperature 98.6 Blood Gas HCO3 25 mmol/L (22-26) Blood Gas Base Excess 1.4 mmol/L (-2-2) Blood Gas Oxygen Saturation 84 % (90-100) Arterial Blood pH 7.44 (7.380-7.420) Arterial Blood Partial 37 mmHg (38-42) Pressure CO2 Arterial Blood Partial 56 mmHg Pressure O2 (61-120) Arterial Blood Oxygen Content 14.5 Vol % (12.0-20.0) Arterial Blood 2.0 % (0-4) Carboxyhemoglobin Arterial Blood Methemoglobin 1.3 % (0-2) Blood Gas Hemoglobin 12.4 G/DL (12.0-16.0) Blood Gas Inspired Oxygen 50 % Imaging Last Impressions Chest X-Ray 02/01/17 0600 Signed Impressions: Service Date/Time: February 06:38 - CONCLUSION: Improving aeration Daniel Cantu MD Head CT 01/31/17 0000 Signed Impressions: Service Date/Time: Tuesday, January 31, 2017 08:42 - CONCLUSION: 1. 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 Right basal ganglia lacunar infarct is age indeterminate. 2. Maurice sinusitis along with opacification of the middle ears and mastoid air cells bilaterally. Geovanny Lynch MD Abdomen X-Ray 01/21/17 0000 Signed Impressions: Service Date/Time: Saturday, January 21, 2017 08:41 - CONCLUSION: Nondiagnostic study. Gurvinder Collier MD Renal Ultrasound 01/09/17 0000 Signed Impressions: Service Date/Time: Monday, January 09, 2017 13:56 - CONCLUSION: 1. Right kidney is sonographically normal. 2. Benign-appearing 2.4 x 1.5 cm cortical cyst in the midpole of the left kidney. 3. Subcentimeter echogenic, non-shadowing foci in the midpole of the left kidney would be unusual for stones and may represent ectopic hilar fat. No hydronephrosis. 4. Urinary bladder is decompressed with a Alanis catheter. Douglas Ward MD Chest Ultrasound 01/09/17 0000 Signed Impressions: Service Date/Time: Monday, January 09, 2017 08:18 - CONCLUSION: No left-sided pleural effusion. The abnormality in the left chest on chest radiograph is likely related to mucous plugging. When patient had a CT scan yesterday the left lung was well aerated. Edgardo Mayorga MD Chest CT 01/08/17 0600 Signed Impressions: Service Date/Time: Sunday, January 08, 2017 08:46 - CONCLUSION: Massive cardiomegaly with panchamber enlargement extensive coronary calcifications. Stable trace pericardial effusion. Increasing bibasilar consolidative changes with minimal bilateral pleural effusions.. Rhys Fritz MD FACR Thoracentesis 01/08/17 0000 Signed Impressions: Service Date/Time: Sunday, January 08, 2017 16:08 - CONCLUSION: Uncomplicated CT-guided thoracentesis on the right. The left sided thoracentesis was not performed as there was no significant left pleural fluid. The abnormality on most recent chest x-ray was secondary to mucous plugging and left sided atelectasis. Edgardo Mayorga MD Objective Remarks GENERAL: 71-year-old male, critically ill-appearing obese male lying in bed sedated with propofol SKIN: Warm and dry. No rash. Right heel ulcer 2 x 2 centimeters and evolving stage 0 sacral decubitus ulcer HEAD: Atraumatic. Normocephalic. EYES: Pupils equal and round, 5mm and reactive to 4 mm. No scleral icterus. No injection or drainage. ENT: No active bleeding. Clear secretions from mouth with suctioning NECK: Trachea midline. Large right-sided evolving hematoma without tracheal shift. Evolving ecchymoses. New trach without significant bleeding CARDIOVASCULAR: Tachycardia, Afib with RVR. S1, S2 no S4 without murmur RESPIRATORY: Diminished breath sounds throughout especially in the bases bilaterally. Few crackles in bases bilaterally. Breath sounds equal bilaterally. GASTROINTESTINAL: Abdomen soft, obese non-tender, nondistended. No active bowel sounds MUSCULOSKELETAL: Extremities with 1+ peripheral edema. No obvious deformities. Posterior tibialis is palpable bilaterally. Right femoral Vas-Cath is clean dry and intact NEUROLOGICAL: Positive corneal reflex. Positive gag. Currently withdrawing to pain bilateral lower extremities. Spontaneous movements left upper extremity reported by RN. Upgoing toes. Date of Insertion: January 05, 2017 Date of Insertion: January 17, 2017 Line: Central Venous Catheter Side: Left Location: Subclavian, Jugular A/P Assessment and Plan Neuro/Psych: Lacunar infarcts bilateral basal ganglia, left thalamus Acute metabolic encephalopathy Epistaxis Discontinued Diptivan today 02/03. DC IV fentanyl gtt. Use PRN Ativan and fentanyl Goal of RASS -1, Daily sedation vacation, Patient doesn't follow commands off sedation. Completed EEG 01/30 revealed no epileptiform activity. Severe encephalopathy. CT brain 01/31 revealed bilateral basal ganglia and left thalamic CVA. Right basal ganglia CVA indeterminate age Dr. Cole/neurology following 01/12 New onset epistaxis, heparin discontinued until 01/31 but restarted Epistaxis-ENT consulted-nasal balloons in situ maintain balloons until 01/20 per ENT recommendation. Removed 01/20 but resumed bleeding so replaced- 01/21 Both Rhino Rocket balloon removed. ENT has followed- Dr. Byrd. Respiratory: Acute hypoxic respiratory failure Left lung consolidation 2/2 previous event of epistaxis, clotted blood left lung -resolved Probable aspiration Possible multilobar [id number] Bilateral pleural effusions SONU Continue with vent support keep sat >90%. s/p OR trach by Dr. Bhakta 02/02 Currently on DuoNeb scheduled every 6 hours with albuterol every 2 hours as needed ICU vent bundle. Pulmonology following- Dr. Burch Currently on prednisone 10 mg twice a day 01/08-right CT-guided thoracentesis-400 cc removed s/p bronch 5.11 by- Dr. Burch for blood clots left lung Status post bronch 01/17 by retail consultant - bloody mucous plug at saturnino/mainstem section cleared. No obvious source of bleeding. s/p bronch 01/[address] Burch. -minimal secretions. SBT today, upto 2 hour trach collar CV: A. fib with RVR Left atrial appendage thrombus Acute Systolic CHF Cardiomyopathy Hypertension Dyslipidemia Continue with Amio at 200 mg twice a day, Coreg 12.5 mg BID-increase to 25 BID. Monitor HR and BP keep MAP>65mmHg On Cardizem drip 20mg/hr for rate control. Attempt wean to DC Give Digoxin 0.25 mg IV x1 6/2. Start scheduled digoxin 0.125 mg daily from 02/03- ASA discontinued due to epistaxis. IV heparin held at midnight for procedures-resume today 01/05 VLADIMIR( [employer])-left atrial thrombus EF 15-20%. Systolic function reduced. Diffuse hyperkinesis. 12/26 [facility] severe systolic dysfunction EF 1015%, mitral valve mild to moderate regurg, LAE, tricuspid Valve-mild to moderate regurg, small pericardial effusion, 12/19 cardiac cath left circumflex 90% occlusion VLADIMIR EF 15-20%. Management per Cardiology -Dr. Jimenez Patient is at high risk of bleeding with anticoagulation Renal: Acute on chronic kidney disease stage IV Nephrology following-Dr. Hahn Monitor renal function, I/O's, avoid nephrotoxins. Vascath placement Hemodialysis initiated 01/14. Consu;t IR for PermeCath on Sunday s/p HD 02/02 with removal 3L FEN/GI: Morbid obesity Hyperphosphatemia s/p PEG 02/03. Resume tube feeds today Prevacid for GI prophylaxis Bowel Colace/Senokot twice a day. On Reglan 5 every 8 and erythromycin 200 every 8 for bowel motility/prokinetic PhosLo 667 3 times a day for hyperphosphatemia Heme: Normocytic anemia Thrombocytopenia Transfused 6 units PRBCs since admission Weakly positive HIT panel-CLIFFORD is negative. Repeat 01/30 with HIT negative Heparin drip currently restarted, but held for PEG and trach. Resume today Hematology is following ID: Likely aspiration pneumonia 01/06 urine, sputum, blood cultures-NGTD 01/06-Legionella urine antigen negative 01/09 - bronchoscopy - yeast/ID to follow 01/12 - blood cultures 2 - no growth 01/20 - blood cultures 2 - staph Epi 09/06 bottles- likely contaminant 01/29 - blood cultures 2 -no growth 01/30 - sputum -immature growth 01/30 - urine -no growth Continue with abx (Zosyn) Given Vanco x1 dose 01/29-Dr. Jade Gage following, Endocrine: Close monitoring per ICU protocol-medium dose regimen -- SSI Accu-Cheks every 6 hours for glycemic control Prophylaxis: GI Prophylaxis Prevacid 30 mg at night DVT Prophylaxis -- SCDs, IV heparin held at midnight for procedures, resume today Lines: Peripheral IV's. Right femoral HD catheter 01/19, Left subclavian CVL 01/17 Patient developed hematoma on right side of his neck from previous attempt of central line placement. Dispo: is Olena Muhammad [phone] Poor prognosis given resp failure, severe cardiomyopathy with left atrial thrombus, renal failure on HD, encephalopathy, multiorgan injury. Critical Care: The total critical care time was 35 minutes. Time to perform other separately billable procedures was not included in the critical care time. Chuck Sanchez MD Feb 03, 2017 09:59
--- NOTE | 2017-02-03 10:31 | HHI.NPPN ---
Subjective General Problems: Anemia, Edema, Heart Disease Renal Failure: Acute History of Present Illness 71-year-old the white male the who is transferred from [facility] to [facility] due to atrial fibrillation with fast ventricular response, he was in the heart catheterization lab and became unstable has to intubated the patient has chronic kidney disease, Cardiomyopathy ejection fraction of only 15% and has severe dilated cardiomyopathy with the clot in left atrium he is on heparin drip and currently on ventilator. Additional Remarks Patient remain on the vent. He has tracheostomy. Some ecchymosis noted on the neck around the site of tracheostomy. Objective Data Data 02/02/17 02/03/17 19:00 07:00 Intake Total 366 ml 820 ml Output Total 3250 ml 270 ml Balance -2884 ml 550 ml IV Total 366 ml 520 ml Other 300 ml Output Urine Total 100 ml 20 ml Stool Total 150 ml 250 ml Hemodialysis 3000 ml Vital Signs Date Time Temp Pulse Resp B/P Pulse Ox O2 Delivery O2 Flow Rate FiO2 02/03/17 10:20 50 02/03/17 10:00 82 02/03/17 08:00 103 137/81 130/66 02/03/17 08:00 99.3 103 26 137/81 95 130/66 02/03/17 08:00 101 02/03/17 08:00 50 02/03/17 07:45 96 50 02/03/17 07:45 50 02/03/17 07:40 50 02/03/17 07:31 96 50 02/03/17 06:00 120 02/03/17 05:00 50 02/03/17 04:43 97 50 02/03/17 04:00 103 113/73 113/66 02/03/17 04:00 98.7 103 18 113/73 95 113/66 02/03/17 04:00 60 02/03/17 04:00 103 02/03/17 02:00 80 02/03/17 00:29 97 60 02/03/17 00:00 82 133/67 94/68 02/03/17 00:00 60 02/03/17 00:00 82 02/03/17 00:00 98.9 97 18 133/67 97 94/68 02/02/17 22:00 80 02/02/17 20:00 131 145/87 104/66 02/02/17 20:00 133 02/02/17 20:00 60 02/02/17 20:00 98.6 133 18 145/87 98 117/88 02/02/17 19:59 96 60 02/02/17 18:00 130 02/02/17 16:17 93 60 02/02/17 16:00 98 145/88 139/75 02/02/17 16:00 60 02/02/17 16:00 98 02/02/17 16:00 98.5 98 18 145/88 91 139/75 02/02/17 14:11 100 100 02/02/17 14:00 116 02/02/17 12:00 120 135/77 143/68 02/02/17 12:00 40 02/02/17 12:00 99.6 120 18 135/77 97 143/68 02/02/17 12:00 120 02/02/17 11:53 98 40 -: 02/03/17 0453 02/03/17 0453 Physical Exam General Appearance: Well Developed Eyes Eye Exam: Pupils Equal Pulmonary Resp Exam: Rhonchi, Decreased Bases, Diminished Breath Sounds Cardiology CV Exam: Arrhythmia Gastrointestinal/Abdomen GI Exam: Soft, Non-Tender, Distended Extremeties Extremities Exam: Moderate Edema, Pitting Edema, Dependent Edema Neurologic Neuro Exam: Sedated Assessment/Plan Problem List: (1) Acute renal failure Plan: Oligoanuric. Dialysis dependent. Had dialysis yesterday with removal of 3 liters in UF. He has poor ejection fraction and is intubated Severe cardiomyopathy prognosis is guarded. 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 Improved. Problem Qualifiers (1) CHF (congestive heart failure): Huy Xie MD Feb 03, 2017 10:31
--- NOTE | 2017-02-03 11:46 | HHI.GIFU ---
Subjective Remarks Patient is resting in bed vented through trach, family by bed side. PEG tube is working without issues, just started TF at 20 ml/hr. (Tiffanie Juarez) Objective Vitals I&O Vital Signs Date Time Temp Pulse Resp B/P Pulse Ox O2 Delivery O2 Flow Rate FiO2 02/03/17 11:28 50 02/03/17 11:23 92 50 02/03/17 10:20 50 02/03/17 10:00 82 02/03/17 08:00 103 137/81 130/66 02/03/17 08:00 99.3 103 26 137/81 95 130/66 02/03/17 08:00 101 02/03/17 08:00 50 02/03/17 07:45 96 50 02/03/17 07:45 50 02/03/17 07:40 50 02/03/17 07:31 96 50 02/03/17 06:00 120 02/03/17 05:00 50 02/03/17 04:43 97 50 02/03/17 04:00 103 113/73 113/66 02/03/17 04:00 98.7 103 18 113/73 95 113/66 02/03/17 04:00 60 02/03/17 04:00 103 02/03/17 02:00 80 02/03/17 00:29 97 60 02/03/17 00:00 82 133/67 94/68 02/03/17 00:00 60 02/03/17 00:00 82 02/03/17 00:00 98.9 97 18 133/67 97 94/68 02/02/17 22:00 80 02/02/17 20:00 131 145/87 104/66 02/02/17 20:00 133 02/02/17 20:00 60 02/02/17 20:00 98.6 133 18 145/87 98 117/88 02/02/17 19:59 96 60 02/02/17 18:00 130 02/02/17 16:17 93 60 02/02/17 16:00 98 145/88 139/75 02/02/17 16:00 60 02/02/17 16:00 98 02/02/17 16:00 98.5 98 18 145/88 91 139/75 02/02/17 14:11 100 100 02/02/17 14:00 116 02/02/17 12:00 120 135/77 143/68 02/02/17 12:00 40 02/02/17 12:00 99.6 120 18 135/77 97 143/68 02/02/17 12:00 120 02/02/17 11:53 98 40 I/O 02/02/17 02/02/17 02/02/17 02/03/17 02/03/17 02/03/17 07:00 15:00 23:00 07:00 15:00 23:00 Intake Total 440 ml 366 ml 472 ml 348 ml Output Total 260 ml 3250 ml 165 ml 105 ml Balance 180 ml -2884 ml 307 ml 243 ml IV Total 240 ml 366 ml 322 ml 198 ml Tube Feeding 100 ml Other 100 ml 150 ml 150 ml Output Urine Total 10 ml 100 ml 15 ml 5 ml Stool Total 250 ml 150 ml 150 ml 100 ml Hemodialysis 3000 ml Laboratory Laboratory Tests Test 02/02/17 02/03/17 14:32 04:53 Blood Gas Puncture Site OR DRAW Blood Gas Patient Temperature 98.6 Blood Gas HCO3 25 Blood Gas Base Excess 1.4 Blood Gas Oxygen Saturation 84 Arterial Blood pH 7.44 Arterial Blood Partial 37 Pressure CO2 Arterial Blood Partial 56 Pressure O2 Arterial Blood Oxygen Content 14.5 Arterial Blood 2.0 Carboxyhemoglobin Arterial Blood Methemoglobin 1.3 Blood Gas Hemoglobin 12.4 Blood Gas Inspired Oxygen 50 White Blood Count 4.4 Red Blood Count 3.03 Hemoglobin 9.1 Hematocrit 26.9 Mean Corpuscular Volume 88.8 Mean Corpuscular Hemoglobin 30.2 Mean Corpuscular Hemoglobin 34.0 Concent Red Cell Distribution Width 17.7 Platelet Count 101 Mean Platelet Volume 9.6 Neutrophils (%) (Auto) 81.7 Lymphocytes (%) (Auto) 5.2 Monocytes (%) (Auto) 5.4 Eosinophils (%) (Auto) 7.2 Basophils (%) (Auto) 0.5 Neutrophils # (Auto) 3.6 Lymphocytes # (Auto) 0.2 Monocytes # (Auto) 0.2 Eosinophils # (Auto) 0.3 Basophils # (Auto) 0.0 CBC Comment AUTO DIFF Differential Total Cells 100 Counted Neutrophils % (Manual) 87 Lymphocytes % 5 Monocytes % 3 Eosinophils % 3 Neutrophils # (Manual) 3.9 Promyelocytes 2 Differential Comment FINAL DIFF MANUAL Platelet Estimate LOW Platelet Morphology Comment NORMAL Red Cell Morphology Comment NORMAL Sodium Level 140 Potassium Level 3.6 Chloride Level 100 Carbon Dioxide Level 28.7 Anion Gap 11 Blood Urea Nitrogen 66 Creatinine 3.88 Estimat Glomerular Filtration 15 Rate Random Glucose 80 Calcium Level 7.7 Magnesium Level 2.5 Total Bilirubin 0.7 Aspartate Amino Transf 14 (AST/SGOT) Alanine Aminotransferase 35 (ALT/SGPT) Alkaline Phosphatase 64 Total Protein 5.3 Albumin 2.1 Date/Time Procedure Status Source Growth 01/30/17 07:50 Urine Culture - Final Complete Urine Catheterized Urine NO GROWTH IN 48 HOURS. 01/30/17 07:50 Gram Stain - Final Complete Sputum Endotracheal 01/30/17 07:50 Sputum Culture - Final Complete Sputum Endotracheal MODERATE GROWTH NORMAL RESPIRATORY NIEVES 01/29/17 14:10 Aerobic Blood Culture - Final Complete Blood Peripheral NO GROWTH IN 5 DAYS 01/29/17 14:10 Anaerobic Blood Culture - Final Complete Blood Peripheral NO GROWTH IN 5 DAYS 01/29/17 12:39 Aerobic Blood Culture Received Blood Peripheral Pending 01/29/17 12:39 Anaerobic Blood Culture Received Blood Peripheral Pending Imaging Last Impressions Chest X-Ray 02/03/17 0600 Signed Impressions: Service Date/Time: Friday, February 03, 2017 03:04 - CONCLUSION: Worsening volume overload. K. Phoenix Schroeder MD Head CT 01/31/17 0000 Signed Impressions: Service Date/Time: Tuesday, January 31, 2017 08:42 - CONCLUSION: 1. 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 Right basal ganglia lacunar infarct is age indeterminate. 2. Maurice sinusitis along with opacification of the middle ears and mastoid air cells bilaterally. Geovanny Lynch MD Abdomen X-Ray 01/21/17 0000 Signed Impressions: Service Date/Time: Saturday, January 21, 2017 08:41 - CONCLUSION: Nondiagnostic study. Gurvinder Collier MD Renal Ultrasound 01/09/17 0000 Signed Impressions: Service Date/Time: Monday, January 09, 2017 13:56 - CONCLUSION: 1. Right kidney is sonographically normal. 2. Benign-appearing 2.4 x 1.5 cm cortical cyst in the midpole of the left kidney. 3. Subcentimeter echogenic, non-shadowing foci in the midpole of the left kidney would be unusual for stones and may represent ectopic hilar fat. No hydronephrosis. 4. Urinary bladder is decompressed with a Alanis catheter. Douglas Ward MD Chest Ultrasound 01/09/17 0000 Signed Impressions: Service Date/Time: Monday, January 09, 2017 08:18 - CONCLUSION: No left-sided pleural effusion. The abnormality in the left chest on chest radiograph is likely related to mucous plugging. When patient had a CT scan yesterday the left lung was well aerated. Edgardo Mayorga MD Chest CT 01/08/17 0600 Signed Impressions: Service Date/Time: Sunday, January 08, 2017 08:46 - CONCLUSION: Massive cardiomegaly with panchamber enlargement extensive coronary calcifications. Stable trace pericardial effusion. Increasing bibasilar consolidative changes with minimal bilateral pleural effusions.. Rhys Fritz MD FACR Thoracentesis 01/08/17 0000 Signed Impressions: Service Date/Time: Sunday, January 08, 2017 16:08 - CONCLUSION: Uncomplicated CT-guided thoracentesis on the right. The left sided thoracentesis was not performed as there was no significant left pleural fluid. The abnormality on most recent chest x-ray was secondary to mucous plugging and left sided atelectasis. Edgardo Mayorga MD Physical Exam HEENT: normocephalic; atraumatic; no jaundice. NECK:trach mid line CHEST: Crackles, decreased breath sounds CARDIAC: Regular rate and rhythm with no murmur gallop or rubs. ABDOMEN: Soft, nondistended, Obese, nontender; no hepatosplenomegaly; bowel sounds are present in all four quadrants. PEG tube EXTREMITIES: No clubbing, cyanosis, or edema. OFFICE SUPPORT ASSOCIATE: Lethargic (Tiffanie Juarez) Assessment and Plan Plan ASSESSMENT - FEN/dysphagia - S/P EGD/PEG on (02/02/17) - ARF, AF, RVR, acute on chronic kidney dz - per [facility] PLAN - TF advance to GR - Flush tube with 250 ml of water per shift - GI will sign off This pt seen by myself and Dr Cancino and this note is written on his behalf. ( Tiffanie Juarez) Physician Comments S/P PEG placement, tolerated well, please notify us if needed. (Kaushik Cancino MD) Tiffanie Juarez Feb 03, 2017 11:46 Kaushik Cancino MD Feb 03, 2017 17:52
[2017-02-03] MEDS: DIGOXIN SOLUTION 0.125 MG/2.5 ML CUP PO SCH (12:17)
--- NOTE | 2017-02-03 12:45 | HHI.PR ---
Subjective Subjective Notes DAILY PROGRESS NOTE FOR SURGICAL ATTENDING, DR. BEVERLY DEL REAL Family at bedside On ventilator Objective Vitals/I&O Vital Signs Date Time Temp Pulse Resp B/P Pulse Ox O2 Delivery O2 Flow Rate FiO2 02/03/17 12:00 99.7 85 18 132/83 93 141/62 02/03/17 12:00 50 Labs Laboratory Tests Test 02/02/17 02/03/17 14:32 04:53 Blood Gas Puncture Site OR DRAW Blood Gas Patient Temperature 98.6 Blood Gas HCO3 25 Blood Gas Base Excess 1.4 Blood Gas Oxygen Saturation 84 Arterial Blood pH 7.44 Arterial Blood Partial 37 Pressure CO2 Arterial Blood Partial 56 Pressure O2 Arterial Blood Oxygen Content 14.5 Arterial Blood 2.0 Carboxyhemoglobin Arterial Blood Methemoglobin 1.3 Blood Gas Hemoglobin 12.4 Blood Gas Inspired Oxygen 50 White Blood Count 4.4 Red Blood Count 3.03 Hemoglobin 9.1 Hematocrit 26.9 Mean Corpuscular Volume 88.8 Mean Corpuscular Hemoglobin 30.2 Mean Corpuscular Hemoglobin 34.0 Concent Red Cell Distribution Width 17.7 Platelet Count 101 Mean Platelet Volume 9.6 Neutrophils (%) (Auto) 81.7 Lymphocytes (%) (Auto) 5.2 Monocytes (%) (Auto) 5.4 Eosinophils (%) (Auto) 7.2 Basophils (%) (Auto) 0.5 Neutrophils # (Auto) 3.6 Lymphocytes # (Auto) 0.2 Monocytes # (Auto) 0.2 Eosinophils # (Auto) 0.3 Basophils # (Auto) 0.0 CBC Comment AUTO DIFF Differential Total Cells 100 Counted Neutrophils % (Manual) 87 Lymphocytes % 5 Monocytes % 3 Eosinophils % 3 Neutrophils # (Manual) 3.9 Promyelocytes 2 Differential Comment FINAL DIFF MANUAL Platelet Estimate LOW Platelet Morphology Comment NORMAL Red Cell Morphology Comment NORMAL Sodium Level 140 Potassium Level 3.6 Chloride Level 100 Carbon Dioxide Level 28.7 Anion Gap 11 Blood Urea Nitrogen 66 Creatinine 3.88 Estimat Glomerular Filtration 15 Rate Random Glucose 80 Calcium Level 7.7 Magnesium Level 2.5 Total Bilirubin 0.7 Aspartate Amino Transf 14 (AST/SGOT) Alanine Aminotransferase 35 (ALT/SGPT) Alkaline Phosphatase 64 Total Protein 5.3 Albumin 2.1 Date/Time Procedure Status Source Growth 01/30/17 07:50 Urine Culture - Final Complete Urine Catheterized Urine NO GROWTH IN 48 HOURS. 01/30/17 07:50 Gram Stain - Final Complete Sputum Endotracheal 01/30/17 07:50 Sputum Culture - Final Complete Sputum Endotracheal MODERATE GROWTH NORMAL RESPIRATORY NIEVES 01/29/17 14:10 Aerobic Blood Culture - Final Complete Blood Peripheral NO GROWTH IN 5 DAYS 01/29/17 14:10 Anaerobic Blood Culture - Final Complete Blood Peripheral NO GROWTH IN 5 DAYS Lungs: Other (trach site without bleeding) A/P Assessment and Plan 71-year-old gentleman tracheostomy yesterday by Dr. Bhakta appears to be functioning Beverly Del Real MD Feb 03, 2017 12:45
--- NOTE | 2017-02-03 13:50 | PD.ONC.PN ---
Subjective Subjective Remarks Pt seen and examined at 10am. Afebrile overnight. Pt awake on CPAP. Trach placed yesterday. Per RN there has been some mild oozing from insertion site. Objective Data Date Time Temp Pulse Resp B/P Pulse Ox O2 Delivery O2 Flow Rate FiO2 02/03/17 12:00 99.7 85 18 132/83 93 141/62 02/03/17 12:00 50 02/03/17 12:00 85 02/03/17 12:00 85 132/83 141/62 02/03/17 11:28 50 02/03/17 11:23 92 50 02/03/17 10:20 50 02/03/17 10:00 82 02/03/17 08:00 103 137/81 130/66 02/03/17 08:00 99.3 103 26 137/81 95 130/66 02/03/17 08:00 101 02/03/17 08:00 50 02/03/17 07:45 96 50 02/03/17 07:45 50 02/03/17 07:40 50 02/03/17 07:31 96 50 02/03/17 06:00 120 02/03/17 05:00 50 02/03/17 04:43 97 50 02/03/17 04:00 103 113/73 113/66 02/03/17 04:00 98.7 103 18 113/73 95 113/66 02/03/17 04:00 60 02/03/17 04:00 103 02/03/17 02:00 80 02/03/17 00:29 97 60 02/03/17 00:00 82 133/67 94/68 02/03/17 00:00 60 02/03/17 00:00 82 02/03/17 00:00 98.9 97 18 133/67 97 94/68 02/02/17 22:00 80 02/02/17 20:00 131 145/87 104/66 02/02/17 20:00 133 02/02/17 20:00 60 02/02/17 20:00 98.6 133 18 145/87 98 117/88 02/02/17 19:59 96 60 02/02/17 18:00 130 02/02/17 16:17 93 60 02/02/17 16:00 98 145/88 139/75 02/02/17 16:00 60 02/02/17 16:00 98 02/02/17 16:00 98.5 98 18 145/88 91 139/75 02/02/17 14:11 100 100 02/02/17 14:00 116 02/03/17 02/03/17 02/03/17 07:00 15:00 23:00 Intake Total 348 ml Output Total 105 ml Balance 243 ml Result Diagram: 02/03/17 0453 02/03/17 0453 Laboratory Results Laboratory Tests Test 02/02/17 02/03/17 14:32 04:53 Blood Gas Puncture Site OR DRAW Blood Gas Patient Temperature 98.6 Blood Gas HCO3 25 mmol/L Blood Gas Base Excess 1.4 mmol/L Blood Gas Oxygen Saturation 84 % Arterial Blood pH 7.44 Arterial Blood Partial 37 mmHg Pressure CO2 Arterial Blood Partial 56 mmHg Pressure O2 Arterial Blood Oxygen Content 14.5 Vol % Arterial Blood 2.0 % Carboxyhemoglobin Arterial Blood Methemoglobin 1.3 % Blood Gas Hemoglobin 12.4 G/DL Blood Gas Inspired Oxygen 50 % White Blood Count 4.4 TH/MM3 Red Blood Count 3.03 MIL/MM3 Hemoglobin 9.1 GM/DL Hematocrit 26.9 % Mean Corpuscular Volume 88.8 FL Mean Corpuscular Hemoglobin 30.2 PG Mean Corpuscular Hemoglobin 34.0 % Concent Red Cell Distribution Width 17.7 % Platelet Count 101 TH/MM3 Mean Platelet Volume 9.6 FL Neutrophils (%) (Auto) 81.7 % Lymphocytes (%) (Auto) 5.2 % Monocytes (%) (Auto) 5.4 % Eosinophils (%) (Auto) 7.2 % Basophils (%) (Auto) 0.5 % Neutrophils # (Auto) 3.6 TH/MM3 Lymphocytes # (Auto) 0.2 TH/MM3 Monocytes # (Auto) 0.2 TH/MM3 Eosinophils # (Auto) 0.3 TH/MM3 Basophils # (Auto) 0.0 TH/MM3 CBC Comment AUTO DIFF Differential Total Cells 100 Counted Neutrophils % (Manual) 87 % Lymphocytes % 5 % Monocytes % 3 % Eosinophils % 3 % Neutrophils # (Manual) 3.9 TH/MM3 Promyelocytes 2 % Differential Comment FINAL DIFF MANUAL Platelet Estimate LOW Platelet Morphology Comment NORMAL Red Cell Morphology Comment NORMAL Sodium Level 140 MEQ/L Potassium Level 3.6 MEQ/L Chloride Level 100 MEQ/L Carbon Dioxide Level 28.7 MEQ/L Anion Gap 11 MEQ/L Blood Urea Nitrogen 66 MG/DL Creatinine 3.88 MG/DL Estimat Glomerular Filtration 15 ML/MIN Rate Random Glucose 80 MG/DL Calcium Level 7.7 MG/DL Magnesium Level 2.5 MG/DL Total Bilirubin 0.7 MG/DL Aspartate Amino Transf 14 U/L (AST/SGOT) Alanine Aminotransferase 35 U/L (ALT/SGPT) Alkaline Phosphatase 64 U/L Total Protein 5.3 GM/DL Albumin 2.1 GM/DL Imaging Studies Last 24 hours Impressions Chest X-Ray 02/03/17 0600 Signed Impressions: Service Date/Time: Sunday, February 03, 2017 03:04 - CONCLUSION: Worsening volume overload. Josep. Phoenix Schroeder MD Administered Medications Medications (Trade) Dose Ordered Sig/Claire Route PRN Reason Start Time Stop Time Status Last Admin Dose Admin Docusate Sodium (Colace Liq) 100 mg Q12HR PO 01/06/17 21:00 02/03/17 08:25 Sodium Chloride (NS Flush) 2 ml UNSCH PRN IV FLUSH FLUSH AFTER USING IV ACCESS 01/06/17 13:15 02/02/17 07:30 Sodium Chloride (NS Flush) 2 ml BID IV FLUSH 01/06/17 21:00 02/03/17 08:27 Chlorhexidine Gluconate (Chlorhexidine 2% Cloth) Taper DAILY@04 TOP 01/07/17 04:00 01/03/18 03:59 02/01/17 04:00 Dextrose (D50w (Vial) Inj) 25 ml UNSCH PRN IV PUSH HYPOGLYCEMIA-SEE COMMENTS 01/09/17 07:15 01/21/17 19:15 Insulin Aspart (NovoLOG SUPPLEMENTAL SCALE) 1 Q6HR SQ 01/10/17 06:00 02/01/17 18:00 Bisacodyl (Dulcolax Supp) 10 mg DAILY PRN RECTAL CONSTIPATION 01/10/17 09:15 Hold 01/10/17 09:56 Sennosides (Senna Liq) 8.8 mg BID PO 01/16/17 09:00 02/03/17 08:25 Glycerin (Glycerin Adult Supp) 2 gm BID PRN RECTAL CONSTIPATION 01/17/17 06:45 01/17/17 14:30 Sodium Chloride (NS Flush) DAILY IVF 01/17/17 12:30 02/03/17 08:27 Artificial Tears (Tears Naturale Opth Soln) 1 drop Q8HR EACH EYE 01/17/17 22:00 02/03/17 05:01 Chlorhexidine Gluconate 15 ml 15 ml BID@08,20 MT 01/17/17 20:00 02/03/17 08:27 Midazolam HCl 100 ml @ 0 mls/hr TITRATE IV 01/17/17 16:45 01/25/17 00:18 Fentanyl Citrate (fentaNYL DRIP) 250 ml @ 0 mls/hr TITRATE IV 01/17/17 16:45 01/29/17 05:32 Metoclopramide HCl (Reglan Inj) 5 mg Q8HR IV PUSH 01/18/17 06:45 02/03/17 05:01 Calcium Acetate (Phoslo) 667 mg TID PO 01/19/17 09:00 02/03/17 12:00 Lansoprazole 30 mg 30 mg DAILY NG 01/19/17 09:00 02/03/17 08:26 Sodium Chloride 1,000 ml @ 0 mls/hr Q0M PRN IV For Prime & Rinse Back 01/19/17 08:06 01/29/17 13:49 Sodium Chloride (NS 1000 ml Inj) 1,000 ml @ 0 mls/hr Q0M PRN IV WITH DIALYSIS 01/19/17 08:06 01/27/17 09:24 Mannitol (Mannitol Inj) 12.5 gm UNSCH PRN IV WITH DIALYSIS 01/19/17 08:15 01/26/17 15:26 Albumin Human (Albumin 25% Inj) 25 gm UNSCH PRN IV WITH DIALYSIS 01/19/17 08:15 01/29/17 13:50 Sodium Chloride (NS Flush) 5 ml UNSCH PRN IV FLUSH WITH DIALYSIS 01/19/17 08:15 01/27/17 09:22 Gentamicin Sulfate (Gentamicin (Dialysis) Inj) 20 mg UNSCH PRN IV WITH DIALYSIS 01/19/17 08:15 02/02/17 11:49 Acetaminophen (Tylenol) 650 mg UNSCH PRN PO for headach, pain, temp > 101F 01/19/17 08:15 01/29/17 12:07 Epoetin Rizwan (Epogen Inj) 4,000 units UNSCH PRN IV WITH DIALYSIS 01/19/17 08:15 02/02/17 11:50 Labetalol HCl (Trandate Inj) 10 mg Q1HR PRN IV PUSH SBP>160, DBP>90, HR>65 01/24/17 19:15 01/24/17 19:28 Hydralazine HCl 10 mg 10 mg Q1HR PRN IV PUSH SBP>160, DBP>90 01/24/17 19:15 01/29/17 09:33 Diltiazem HCl/ Sodium Chloride (Cardizem Inj/NS Inj) 125 ml @ 0 mls/hr TITRATE IV 01/29/17 08:45 02/03/17 09:41 Hyoscyamine Sulfate (Levsin) 0.25 mg Q4H PRN PO secretions 01/29/17 11:00 01/29/17 12:07 Nystatin (Mycostatin Powder) 1 applic Q12HR PRN TOPICAL rash 01/29/17 11:00 02/01/17 12:47 Amiodarone HCl (Cordarone) 200 mg Q12HR PO 01/31/17 09:00 02/03/17 08:26 Lactulose (Lactulose Liq) 30 ml DAILY PO 01/31/17 09:00 02/03/17 08:25 Heparin Sodium (Porcine) (Heparin Inj) UNSCH PRN .XX WITH DIALYSIS 01/31/17 10:45 01/31/17 14:49 Prednisone 10 mg 10 mg BID PO 01/31/17 21:00 02/03/17 08:26 Piperacillin Sod/ Tazobactam Sod (Zosyn 2.25 Gm Premix) 50 ml @ 100 mls/hr Q8H IV 02/01/17 21:00 02/03/17 11:58 Digoxin (Lanoxin Liq) 0.125 mg DAILY PO 02/03/17 10:00 02/03/17 12:17 Objective Remarks GENERAL: Overweight older male, lying supine in bed on CPAP. SKIN: Warm and dry. Lg hematoma, right neck. HEAD: Normocephalic. EYES: No injection or drainage. NECK: Tracheotomy midline. Blood noted on trach ties. No oozing currently noted. CARDIOVASCULAR: Tachycardic, irregular rhythm. Noted to be in Afib on monitor and storage bin tender. RESPIRATORY: scattered rhonchi. on mechanical ventilation GASTROINTESTINAL: Abdomen protuberant, soft. PEG tube in place. Bandage clean and dry. EXTREMITIES: No cyanosis. SCD's to BLE. NEUROLOGICAL: Appears somewhat alert. Shakes head "yes" when asked to squeeze my hand, but does not follow through with request. Assessment/Plan Problem List: (1) Thrombosis of left atrium without antecedent myocardial infarction Status: Acute Plan: 02/03/17: Will resume SQ heparin today. If no bleeding and blood counts remain stable then we can resume heparin gtt tomorrow. (2) Thrombocytopenia Status: Acute Plan: --likely d/t bleeding + acute illness. --CLIFFORD negative Assessment 71y/o male admitted in afib w/RVR. 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 --hematoma from central line placement in the right neck --epistaxis requiring nasal plugs Plan 1. Start SQ heparin today at 5,000 units Q8H. 2. If blood counts remain stable and no bleeding, then we can transition back to a heparin gtt tomorrow. 3. Monitor for bleeding, CBC. Attending Statement The exam, history, and the medical decision-making described in the above note were completed with the assistance of the mid-level provider. I reviewed and agree with the findings presented. I attest that I had a [id number] encounter with the patient on the same day, and personally performed and documented my assessment and findings in the medical record. The pt was seen and examined. Labs and meds were reviewed. Heparin gtt was placed on hold for the trach yesterday. Will resume heparin sq 5000 units q8hrs. If he is able to tolerate this without bleeding, we will start him on the heparin gtt tomorrow. Indication for anticoagulation is the atrial thrombus. Case d/w ICU attending and nursing staff. Talia Antunez Feb 03, 2017 13:50 Aurelio Hahn MD Feb 03, 2017 18:05
--- NOTE | 2017-02-03 14:01 | HHI.PR ---
Subjective Remarks Trach was done.Lethargic and opens eyes ,and on Vent support ,now on PEEP 8. FIO2 at 50%. Had dialysis . No real response to commands . tolerates feeds Objective Vital Signs Date Time Temp Pulse Resp B/P Pulse Ox O2 Delivery O2 Flow Rate FiO2 02/03/17 12:00 99.7 85 18 132/83 93 141/62 02/03/17 12:00 50 02/03/17 12:00 85 02/03/17 12:00 85 132/83 141/62 02/03/17 11:28 50 02/03/17 11:23 92 50 02/03/17 10:20 50 02/03/17 10:00 82 02/03/17 08:00 103 137/81 130/66 02/03/17 08:00 99.3 103 26 137/81 95 130/66 02/03/17 08:00 101 02/03/17 08:00 50 02/03/17 07:45 96 50 02/03/17 07:45 50 02/03/17 07:40 50 02/03/17 07:31 96 50 02/03/17 06:00 120 02/03/17 05:00 50 02/03/17 04:43 97 50 02/03/17 04:00 103 113/73 113/66 02/03/17 04:00 98.7 103 18 113/73 95 113/66 02/03/17 04:00 60 02/03/17 04:00 103 02/03/17 02:00 80 02/03/17 00:29 97 60 02/03/17 00:00 82 133/67 94/68 02/03/17 00:00 60 02/03/17 00:00 82 02/03/17 00:00 98.9 97 18 133/67 97 94/68 02/02/17 22:00 80 02/02/17 20:00 131 145/87 104/66 02/02/17 20:00 133 02/02/17 20:00 60 02/02/17 20:00 98.6 133 18 145/87 98 117/88 02/02/17 19:59 96 60 02/02/17 18:00 130 02/02/17 16:17 93 60 02/02/17 16:00 98 145/88 139/75 02/02/17 16:00 60 02/02/17 16:00 98 02/02/17 16:00 98.5 98 18 145/88 91 139/75 02/02/17 14:11 100 100 02/02/17 14:00 116 I/O 02/02/17 02/02/17 02/02/17 02/03/17 02/03/17 02/03/17 07:00 15:00 23:00 07:00 15:00 23:00 Intake Total 440 ml 366 ml 472 ml 348 ml Output Total 260 ml 3250 ml 165 ml 105 ml Balance 180 ml -2884 ml 307 ml 243 ml IV Total 240 ml 366 ml 322 ml 198 ml Tube Feeding 100 ml Other 100 ml 150 ml 150 ml Output Urine Total 10 ml 100 ml 15 ml 5 ml Stool Total 250 ml 150 ml 150 ml 100 ml Hemodialysis 3000 ml Result Diagram: 02/03/1745202/03/17452 Objective Remarks GENERAL: This is an obese, elderly man who is on the vent HEENT: Head is normocephalic. Pupils are reactive. NECK Neck supple. Trachea is midline.Trach tube is in. Neck Hematoma ++ CHEST: Occ crackles at both lung bases. Occ wheeze .Decreased breath sounds at bases HEART: The heart sounds are irregular S1-S2. No murmur. ABDOMEN: Soft. Obese without masses. No organomegaly. EXTREMITIES: No edema. Decreased peripheral pulses. Reflexes are not elicited. The patient is lethargic. SKIN: Dry and cool. Assessment and Plan Assessment and Plan IMPRESSION 1. Hypoxic respiratory failure. 2. Left lower lobe atelectasis and possible pneumonia with aspiration. 3. Left pleural effusion resolved. 4. Cardiomyopathy and congestive heart failure. 5. Obstructive sleep apnea. 6. Diabetes mellitus. 7. Atrial fibrillation. 8. Nasopharyngeal bleed Plan : 1. PSV /CPAP 12/8 CM today 2. PEEP at 8 CM, FIO2 to 50 % 3. Antibiotics per ID. 4. CBC ,BMP in am. 5. Nebs qid , duoneb. 6. Trach suction and Lavage 7. Tube feeds at 50 CC 8. Cont Prednisone 20 mg daily 9. Dialysis per renal. 10. PT evaluation Julius Burch MD Feb 03, 2017 14:01
[2017-02-03] MEDS: HEPARIN SODIUM - SQ 10,000 UNITS/ML VIAL SQ SCH (14:17)
[2017-02-03] MEDS: fentaNYL CITRATE 250 MCG/5 ML AMP IV PUSH PRN (14:45)
[2017-02-03] MEDS: ACETAMINOPHEN 325 MG TAB PO PRN (20:04)
[2017-02-04] VITALS (19 sets, daily range): BP systolic 121–169; BP diastolic 59–106; PULSE 77–141; RESP 18–30; TEMP 98.5–99.9; O2SAT 91–100
[2017-02-04] MEDS: HEPARIN SODIUM - SQ 10,000 UNITS/ML VIAL SQ SCH ×2 (00:53→05:24)
[2017-02-04] MEDS: METOCLOPRAMIDE HCL 10 MG/2 ML VIAL IV PUSH SCH ×4 (00:53→20:30)
[2017-02-04] MEDS: RESP: ALBUTEROL 2.5 MG/IPRATROPIUM 0.5 MG NEB (SCH) NEB ×4 (03:41→20:25)
[2017-02-04] MEDS: CHLORHEXIDINE GLUCONATE 2 % 1 PACK (2 CLOTHS) TOP SCH (03:55)
--- NOTE | 2017-02-04 04:28 | RADRPT ---
EXAM DATE/TIME: 02/04/2017 03:17 [place] COMPARISON: CHEST SINGLE AP, February 03, 2017, 3:04. INDICATIONS : Shortness of breath, possible pulmonary disease. MEDICAL HISTORY : Hypertension. SURGICAL HISTORY : Coronary artery stent. ENCOUNTER: Subsequent ACUITY: 1 month PAIN SCORE: Non-responsive. LOCATION: Bilateral chest FINDINGS: Bilateral pleural effusions, pulmonary edema and bibasilar consolidation have not changed. Tracheosto my tube is present in satisfactory position. Left subclavian line is present with tip overlapping the expected region of the SVC. CONCLUSION: No appreciable change. Kaylah Schroeder MD on February 04, 2017 at 4:26 Board Certified Radiologist. This report was verified electronically.
[2017-02-04] MEDS: INSULIN ASPART SUPPLEMENTAL SCALE SQ SCH ×5 (05:24→23:50)
[2017-02-04] MEDS: PIPERACIL-TAZO 2.25 GM PREMIX 50 ML IV SCH ×3 (05:24→21:17)
[2017-02-04] MEDS: ARTIFICIAL TEARS OPTH SOLN 15 ML BTL EACH EYE SCH ×3 (05:25→20:30)
[2017-02-04 05:55] LABS: AUTOMATED NEUTROPHIL # 3.8 TH/MM3 (1.8-7.7); BASOPHIL % 0.5 % (0.0-2.0); EOSINOPHIL # 0.2 TH/MM3 (0-0.4); EOSINOPHIL % 4.2 % (0.0-4.0); HEMATOCRIT 25.9 % (39.0-51.0); HEMO FLAGS DIFF FINAL; LYMPH % 4.9 % (9.0-44.0); LYMPHOCYTE # 0.2 TH/MM3 (1.0-4.8); MEAN CELL VOLUME 88.4 FL (80.0-100.0); MEAN CORPUSCULAR HEMOGLOBIN 30.2 PG (27.0-34.0); MEAN CORPUSCULAR HGB CONC 34.1 % (32.0-36.0); MONO % 4.2 % (0.0-8.0); NEUT % 86.2 % (16.0-70.0); PLATELET COUNT 111 TH/MM3 (150-450); RED BLOOD COUNT 2.92 MIL/MM3 (4.50-5.90); RED CELL DISTRIBUTION WIDTH 17.3 % (11.6-17.2); WHITE BLOOD COUNT 4.5 TH/MM3 (4.0-11.0)
[2017-02-04 06:08] LABS: ANION GAP 15 MEQ/L (5-15); AST (GOT) 14 U/L (15-37); BICARBONATE 24.4 MEQ/L (21.0-32.0); BLOOD UREA NITROGEN 75 MG/DL (7-18); CHLORIDE 101 MEQ/L (98-107); GLOMERULAR FILTRATION RATE 12 ML/MIN (>89); POTASSIUM 3.5 MEQ/L (3.5-5.1); SODIUM (NA) 140 MEQ/L (136-145)
[2017-02-04 06:24] LABS: ALKALINE PHOSPHATASE 65 U/L (45-117); ALT (GPT) 32 U/L (12-78); DIGOXIN 1.1 NG/ML (0.8-2.0); TOTAL BILIRUBIN ADULT 0.7 MG/DL (0.2-1.0)
[2017-02-04] MEDS: DILTIAZEM INJ 125 MG in SODIUM CHLORIDE 0.9% INJ 100 ML IV SCH ×2 (06:38→15:54)
[2017-02-04] MEDS: CARVEDILOL 12.5 MG TAB PO SCH ×2 (07:36→20:29)
[2017-02-04] MEDS: CALCIUM ACETATE 667 MG CAP PO SCH ×3 (07:36→16:48)
[2017-02-04] MEDS: SENNOSIDES SYRUP 8.8 MG/5 ML CUP PO SCH ×2 (07:37→20:29)
[2017-02-04] MEDS: DOCUSATE SODIUM 100 MG/10 ML UDC PO SCH ×2 (07:37→20:29)
[2017-02-04] MEDS: LACTULOSE SYRUP 20 GM/30 ML CUP PO SCH (07:37)
[2017-02-04] MEDS: LANSOPRAZOLE SOLUTAB 30 MG TAB NG SCH (07:37)
[2017-02-04] MEDS: predniSONE 10 MG TAB PO SCH (07:37)
[2017-02-04] MEDS: AMIODARONE 200 MG TAB PO SCH ×2 (07:37→20:29)
[2017-02-04] MEDS: DIGOXIN SOLUTION 0.125 MG/2.5 ML CUP PO SCH (07:37)
[2017-02-04] MEDS: SODIUM CHLORIDE 0.9% FLUSH 10 ML FLUSH IV FLUSH SCH ×2 (07:38→20:29)
[2017-02-04] MEDS: SODIUM CHLORIDE 0.9% FLUSH 10 ML FLUSH IVF SCH (07:39)
[2017-02-04] MEDS: CHLORHEXIDINE 0.12% (ORAL KIT) 15 ML CUP MT SCH ×2 (07:39→20:29)
--- NOTE | 2017-02-04 08:36 | PD.ONC.PN ---
Subjective Subjective Remarks Tmax 100.6 overnight. Pt resting in bed with trach, on CPAP. Per RN there remains some mild oozing from trach insertion Objective Data Date Time Temp Pulse Resp B/P Pulse Ox O2 Delivery O2 Flow Rate FiO2 02/04/17 06:00 141 02/04/17 04:38 93 50 02/04/17 04:00 136 02/04/17 04:00 99.0 136 19 137/74 91 131/62 02/04/17 04:00 136 137/74 131/62 02/04/17 04:00 50 02/04/17 02:00 108 02/04/17 01:09 93 50 02/04/17 00:01 80 02/04/17 00:00 50 02/04/17 00:00 82 02/04/17 00:00 82 121/68 130/60 02/04/17 00:00 98.5 82 18 121/68 92 130/60 02/03/17 23:05 80 02/03/17 23:01 79 02/03/17 23:00 81 02/03/17 22:03 99 50 02/03/17 22:01 82 02/03/17 22:00 80 02/03/17 21:56 80 02/03/17 21:51 83 02/03/17 21:13 20 02/03/17 21:01 84 02/03/17 21:01 116/56 02/03/17 21:01 84 116/56 110/54 02/03/17 21:01 84 02/03/17 21:00 85 17 115/58 91 02/03/17 21:00 85 02/03/17 21:00 85 115/58 02/03/17 20:00 100.6 145 20 157/102 92 148/72 02/03/17 20:00 145 02/03/17 20:00 145 02/03/17 20:00 145 157/102 148/72 02/03/17 20:00 50 02/03/17 19:15 93 50 02/03/17 19:00 151 131/83 145/69 02/03/17 19:00 151 21 131/83 92 145/69 02/03/17 19:00 151 02/03/17 18:00 137 02/03/17 18:00 137 17 118/79 94 138/68 02/03/17 18:00 137 118/79 138/68 02/03/17 17:32 19 02/03/17 17:00 121 17 105/80 93 127/62 02/03/17 17:00 121 105/80 127/62 02/03/17 16:00 99.2 135 30 97/78 92 113/56 02/03/17 16:00 135 97/78 113/56 02/03/17 16:00 135 02/03/17 16:00 50 02/03/17 15:35 94 50 02/03/17 15:22 50 02/03/17 14:00 140 02/03/17 14:00 50 02/03/17 12:00 99.7 85 18 132/83 93 141/62 02/03/17 12:00 50 02/03/17 12:00 85 02/03/17 12:00 85 132/83 141/62 02/03/17 11:28 50 02/03/17 11:23 92 50 02/03/17 10:20 50 02/03/17 10:00 82 02/04/17 02/04/17 02/04/17 07:00 15:00 23:00 Intake Total 373 ml Output Total 390 ml Balance -17 ml Result Diagram: 02/04/17 0335 02/04/17 0335 Laboratory Results Laboratory Tests Test 02/04/17 03:35 White Blood Count 4.5 TH/MM3 Red Blood Count 2.92 MIL/MM3 Hemoglobin 8.8 GM/DL Hematocrit 25.9 % Mean Corpuscular Volume 88.4 FL Mean Corpuscular Hemoglobin 30.2 PG Mean Corpuscular Hemoglobin 34.1 % Concent Red Cell Distribution Width 17.3 % Platelet Count 111 TH/MM3 Mean Platelet Volume 10.1 FL Neutrophils (%) (Auto) 86.2 % Lymphocytes (%) (Auto) 4.9 % Monocytes (%) (Auto) 4.2 % Eosinophils (%) (Auto) 4.2 % Basophils (%) (Auto) 0.5 % Neutrophils # (Auto) 3.8 TH/MM3 Lymphocytes # (Auto) 0.2 TH/MM3 Monocytes # (Auto) 0.2 TH/MM3 Eosinophils # (Auto) 0.2 TH/MM3 Basophils # (Auto) 0.0 TH/MM3 CBC Comment DIFF FINAL Differential Comment Sodium Level 140 MEQ/L Potassium Level 3.5 MEQ/L Chloride Level 101 MEQ/L Carbon Dioxide Level 24.4 MEQ/L Anion Gap 15 MEQ/L Blood Urea Nitrogen 75 MG/DL Creatinine 4.73 MG/DL Estimat Glomerular Filtration 12 ML/MIN Rate Random Glucose 132 MG/DL Calcium Level 8.0 MG/DL Total Bilirubin 0.7 MG/DL Aspartate Amino Transf 14 U/L (AST/SGOT) Alanine Aminotransferase 32 U/L (ALT/SGPT) Alkaline Phosphatase 65 U/L Total Protein 5.5 GM/DL Albumin 2.2 GM/DL Digoxin Level 1.1 NG/ML Imaging Studies Last 24 hours Impressions Chest X-Ray 02/04/17 0600 Signed Impressions: Service Date/Time: Saturday, February 04, 2017 03:17 - CONCLUSION: No appreciable change. Kaylah Schroeder MD Administered Medications Medications (Trade) Dose Ordered Sig/Claire Route PRN Reason Start Time Stop Time Status Last Admin Dose Admin Docusate Sodium (Colace Liq) 100 mg Q12HR PO 01/06/17 21:00 02/04/17 07:37 Sodium Chloride (NS Flush) 2 ml UNSCH PRN IV FLUSH FLUSH AFTER USING IV ACCESS 01/06/17 13:15 02/02/17 07:30 Sodium Chloride (NS Flush) 2 ml BID IV FLUSH 01/06/17 21:00 02/04/17 07:38 Chlorhexidine Gluconate (Chlorhexidine 2% Cloth) Taper DAILY@04 TOP 01/07/17 04:00 01/03/18 03:59 02/01/17 04:00 Dextrose (D50w (Vial) Inj) 25 ml UNSCH PRN IV PUSH HYPOGLYCEMIA-SEE COMMENTS 01/09/17 07:15 01/21/17 19:15 Insulin Aspart (NovoLOG SUPPLEMENTAL SCALE) 1 Q6HR SQ 01/10/17 06:00 02/01/17 18:00 Bisacodyl (Dulcolax Supp) 10 mg DAILY PRN RECTAL CONSTIPATION 01/10/17 09:15 Hold 01/10/17 09:56 Sennosides (Senna Liq) 8.8 mg BID PO 01/16/17 09:00 02/04/17 07:37 Glycerin (Glycerin Adult Supp) 2 gm BID PRN RECTAL CONSTIPATION 01/17/17 06:45 01/17/17 14:30 Sodium Chloride (NS Flush) DAILY IVF 01/17/17 12:30 02/04/17 07:39 Artificial Tears (Tears Naturale Opth Soln) 1 drop Q8HR EACH EYE 01/17/17 22:00 02/04/17 05:25 Chlorhexidine Gluconate 15 ml 15 ml BID@08,20 MT 01/17/17 20:00 02/04/17 07:39 Midazolam HCl 100 ml @ 0 mls/hr TITRATE IV 01/17/17 16:45 01/25/17 00:18 Fentanyl Citrate (fentaNYL DRIP) 250 ml @ 0 mls/hr TITRATE IV 01/17/17 16:45 01/29/17 05:32 Metoclopramide HCl (Reglan Inj) 5 mg Q8HR IV PUSH 01/18/17 06:45 02/04/17 05:24 Calcium Acetate (Phoslo) 667 mg TID PO 01/19/17 09:00 02/04/17 07:36 Lansoprazole 30 mg 30 mg DAILY NG 01/19/17 09:00 02/04/17 07:37 Sodium Chloride 1,000 ml @ 0 mls/hr Q0M PRN IV For Prime & Rinse Back 01/19/17 08:06 01/29/17 13:49 Sodium Chloride (NS 1000 ml Inj) 1,000 ml @ 0 mls/hr Q0M PRN IV WITH DIALYSIS 01/19/17 08:06 01/27/17 09:24 Mannitol (Mannitol Inj) 12.5 gm UNSCH PRN IV WITH DIALYSIS 01/19/17 08:15 01/26/17 15:26 Albumin Human (Albumin 25% Inj) 25 gm UNSCH PRN IV WITH DIALYSIS 01/19/17 08:15 01/29/17 13:50 Sodium Chloride (NS Flush) 5 ml UNSCH PRN IV FLUSH WITH DIALYSIS 01/19/17 08:15 01/27/17 09:22 Gentamicin Sulfate (Gentamicin (Dialysis) Inj) 20 mg UNSCH PRN IV WITH DIALYSIS 01/19/17 08:15 02/02/17 11:49 Acetaminophen (Tylenol) 650 mg UNSCH PRN PO for headach, pain, temp > 101F 01/19/17 08:15 02/03/17 20:04 Epoetin Rizwan (Epogen Inj) 4,000 units UNSCH PRN IV WITH DIALYSIS 01/19/17 08:15 02/02/17 11:50 Labetalol HCl (Trandate Inj) 10 mg Q1HR PRN IV PUSH SBP>160, DBP>90, HR>65 01/24/17 19:15 01/24/17 19:28 Hydralazine HCl 10 mg 10 mg Q1HR PRN IV PUSH SBP>160, DBP>90 01/24/17 19:15 01/29/17 09:33 Diltiazem HCl/ Sodium Chloride (Cardizem Inj/NS Inj) 125 ml @ 0 mls/hr TITRATE IV 01/29/17 08:45 02/04/17 06:38 Hyoscyamine Sulfate (Levsin) 0.25 mg Q4H PRN PO secretions 01/29/17 11:00 01/29/17 12:07 Nystatin (Mycostatin Powder) 1 applic Q12HR PRN TOPICAL rash 01/29/17 11:00 02/01/17 12:47 Amiodarone HCl (Cordarone) 200 mg Q12HR PO 01/31/17 09:00 02/04/17 07:37 Lactulose (Lactulose Liq) 30 ml DAILY PO 01/31/17 09:00 02/04/17 07:37 Heparin Sodium (Porcine) (Heparin Inj) UNSCH PRN .XX WITH DIALYSIS 01/31/17 10:45 01/31/17 14:49 Prednisone 10 mg 10 mg BID PO 01/31/17 21:00 02/04/17 07:37 Piperacillin Sod/ Tazobactam Sod (Zosyn 2.25 Gm Premix) 50 ml @ 100 mls/hr Q8H IV 02/01/17 21:00 02/04/17 05:24 Carvedilol (Coreg) 25 mg Q12HR PO 02/03/17 21:00 02/04/17 07:36 Digoxin (Lanoxin Liq) 0.125 mg DAILY PO 02/03/17 10:00 02/04/17 07:37 Fentanyl Citrate (fentaNYL INJ) 50 mcg Q2HR PRN IV PUSH pain 1-10 02/03/17 10:00 02/03/17 14:45 Heparin Sodium (Porcine) (Heparin Inj) 5,000 units Q8HR SQ 02/03/17 14:00 02/04/17 05:24 Objective Remarks GENERAL: Overweight older male, lying supine in bed on CPAP. SKIN: Warm and dry. Lg hematoma, right neck. HEAD: Normocephalic. EYES: No injection or drainage. NECK: Tracheostomy midline. No oozing noted during exam. CARDIOVASCULAR: Tachycardic, irregular rhythm. Noted to be in Afib on security monitor. RESPIRATORY: Mechanically ventilated on CPAP. Scattered rhonchi. GASTROINTESTINAL: Abdomen protuberant, soft. PEG tube in place. Bandage clean and dry. EXTREMITIES: No cyanosis. SCD's to BLE. NEUROLOGICAL: Alert. Attempts to follow commands. Assessment/Plan Problem List: (1) Thrombosis of left atrium without antecedent myocardial infarction Status: Acute Plan: -- Needs anticoagulated (2) Thrombocytopenia Status: Acute Plan: --likely d/t bleeding + acute illness. --CLIFFORD negative -- Improving Assessment 71y/o male admitted in afib w/RVR. 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 --hematoma from central line placement in the right neck --epistaxis requiring nasal plugs Plan 1. Clinically stable, some fluctuation of Hgb today, with a slight down trend. No overt bleeding noted. 2. Will start him on a heparin infusion at 12units/kg/hr, no bolus protocol. Attending Statement The exam, history, and the medical decision-making described in the above note were completed with the assistance of the mid-level provider. I reviewed and agree with the findings presented. I attest that I had a [id number] encounter with the patient on the same day, and personally performed and documented my assessment and findings in the medical record. Pt seen and examined. Tolerated Heparin sq without difficulty yesterday. Will d/c heparin sq and start the pt on heparin IV. Orders were placed, communicated with ICU attending and nursing staff. Talia Antunez Feb 04, 2017 08:36 Aurelio Hahn MD Feb 04, 2017 12:59
[2017-02-04] MEDS ORDERED: BUMETANIDE INJ 1 MG/4 ML VIAL IV PUSH ONE (09:15)
--- NOTE | 2017-02-04 09:23 | HHI.CCPN ---
Subjective Remarks/Hospital Course This is a 71-year-old gentleman that presented to [facility] secondary to dyspnea and atrial fibrillation with RVR. The patient has a medical history significant for obesity and hypertension. During his hospitalization at [facility], the patient underwent an echocardiogram which showed severe systolic dysfunction with an ejection fraction of 1015 % the patient then underwent a cardiac catheterization showing significance with left circumflex 90%. The patient underwent multiple attempts of unsuccessful synchronized cardioversion. The patient also underwent medical management with beta blockers, and calcium channel blockers that were also unsuccessful. The patient was transferred to [facility] for cardiac ablation with Dr. Jimenez. The patient was scheduled for cardiac ablation, the procedure was canceled. The patient required emergent intubation and required ventilator management a VLADIMIR was performed showing a clot in the left atrial appendage. The patient was placed on IV Cardizem, and an amiodarone infusion. Critical Care medicine was consulted for management. 01/06: Tmax 97.4. The patient remained on elevated vent settings with FiO2 of 1.0 overnight, PEEP requirements were increased to 8, to maintain a PaO2 of greater than [address] scan of the chest was obtained which noted bilateral effusions small, basilar consolidations right worse than the left, and a loculated area representing a possible pneumonia process, empyema, as well as aspiration or just loculated fluid as well as a small pericardial effusion. The patient continues on Cardizem and amiodarone infusions with a heart rate overnight 80s -115. The patient's vasopressor requirements of phenylephrine diminished to 20 mcgs. 01/07: Tmax 99.2. Yesterday the central line was placed for vasoactive medications and CVP monitoring, small hematoma noted near the right IJ area soft no compression of major vessels, with resolution of bleeding in that area. Phenylephrine was discontinued yesterday. The patient heart rate remains today [id number]. Cardizem infusion has been discontinued in the setting of EF of 10-15%. Esmolol infusion to be initiated this a.m.. Coumadin was initiated last night now placed on hold due to patient bleeding from nasopharynx and oropharynx. INR currently 1.2. Plan for CT thorax tomorrow, with possible IR intervention versus CVT consultation for possible empyema the patient will remain on heparin infusion, and transition onto Coumadin after any potential procedures to be initiated. Chest x-ray slightly improved FiO2 decreasing now 70%. Sedation vacation yesterday revealed GCS 11 T, patient alert responsive following commands. With initiation of antibiotics, leukocytosis resolved. ID consulted Dr. Gage. Blood cultures are pending. 01/08: Patient's heart rate 110-[address] scan of the chest imaging revealed fluid. Plan for thoracentesis and and studies of pleural fluid , this afternoon. The patient remains on amiodarone and heparin infusions, per cardiology. Heparin held, for thoracentesis this afternoon, and then will be resumed. The patient was maintained on CPAP trial for approximately one hour yesterday. During sedation vacation patient was alert following commands recognizing family. Plan to resume CPAP trials this afternoon post thoracentesis. 01/09: The patient underwent CT-guided thoracentesis yesterday , on the right side noted 400 cc of fluid was removed , with specimens ordered to be sent for evaluation .This morning chest x-ray performed showing almost complete opacification of the left lung. FiO2 requirements increase patient on FiO2 of 80%, O2 sat 94%. Left chest ultrasound obtained revealing no fluid. Consent obtained BAL performed, revealing emanating from the nearest previously ( patient was noted to have epistaxis with initiation of heparin on 01/06). Blood clots noted in left lung upon visualization with bronchoscopy, saline lavage applied, minimal blood clots removed. The patient was initiated on Mucomyst 10% , and pulmonology was consulted. Dr. Tasia Lama following. The patient shows no signs or evidence of bleeding actively, plan to consult ENT if signs of active bleeding become evident. Hemoglobin remains stable.The patient converted into sinus rhythm is today afternoon. Cardiology management of medications, IV amiodarone discontinued this afternoon. 01/10: Tmax 99.0. Chest x-ray shows slight improvement of left lung today. Plan for repeat bronchoscopy per Dr. Burch this a.m, and the patient continues on Mucomyst. The patient's cardiac rhythm reverted to A. fib last evening, amiodarone IV infusion reinstituted per Dr. Jimenez. 01/11: TMax 100.0. Much improved chest x-ray this morning. The patient continues in A. fib with a rate of 120, he continues on amiodarone, heparin infusion per cardiology. No evidence of active bleeding. 5/12 Patient Remains sedated with Diprivan, intubated. T:99.9. On Neosyn 15 mics , heparin and Amio drips. In Afib with RRV. Patient s/p repeat bronch with BAL yesterday by Dr. Burch and ETT replacement by Dr. Sanchez. On PC/AC with PEEP:14 , FIO2 100%. 01/13: TMax 100.2. Last night the nurse reported that the patient had a small amount of epistaxis, and blood in the oropharynx noted. The area continued to bleed during the night. ENT has been consulted. Heparin has been placed on hold , ASA has been discontinued in the setting of acute renal failure. The patient continues on amiodarone infusion , heart rate 120's. Neosynephrine has been discontinued, and Levophed instituted. Creatinine noted to be 4.5. As per report , states patient does not want dialysis. The patient continues on elevated PEEP of 14. 5/14: Heparin was discontinued yesterday in the setting of continued bleeding in the nasal/ oropharyngeal region. ENT was consulted and nasal packing was applied. During the night the patient still had small noted amount of bleeding from the oropharyngeal area plan today for oropharyngeal packing. Hgb 9, will transfuse .The patient was placed on norepinephrine for currently at 1-2 mcgs per minute. PEEP has been decreased to 12, with adequate oxygenation a PaO2 of 71. 5/15: Tmax 99.0. The patient continues to be anemic and thrombocytopenic, contributory factors being uremia. The patient's /family decided to pursue hemodialysis at this point. The patient received 1 unit of packed red blood cells yesterday. The patient was initiated on dialysis yesterday afternoon, with approximately 3 L removed. Nasal gauze packing removed and placement of nasal balloons by ENT yesterday. Oral gauze packing to be removed today. The patient received 2 separate doses of digoxin, A. fib heart rate ranging 80- < 120. The patient continues to have high ventilatory requirements, FiO2 was increased throughout the night to currently 80%, to maintain O2 sat greater than 92%. 01/16: FiO2 at 85%. Large clots removed from oropharynx overnight. Transfused 2 units PRBCs yesterday. No bowel movement. Tolerating tube feeds at 40 cc now with Nepro 01/17: Maximum 100.6. CURRENT TEMPERATURE 98.1. Central line pulled out yesterday. Flolan initiated yesterday and FiO2 down to 65%. Tolerating tube feeds. No bowel movement. Arousable weakly follow commands yesterday 01/18: Tmax 99.8. Currently afebrile. Initially, hemoptysis with desaturation requiring bronchoscopy. See bronchoscopy note. Roto-Rest bed ordered. FiO2 from 100-70% currently. On Nimbex drip. No BM. Tolerating tube feeds. 01/19: Afebrile. FiO2 down to 40%. We will attempt a wean Flolan today. On Nimbex drip. Positive BM yesterday. Tolerating tube feeds. 01/20: FiO2 back to 100%. Flolan "fell off "overnight. Ventilator adjusted back to 100%. Flolan reinstituted. Chest x-ray and ABG pending. Tolerating tube feeds. Positive BM. Afebrile. 01/21: Intolerant of tube feeding. KUB pending. Afebrile. Bleeding from bilateral nares and Alanis overnight. Argatroban has been held. Positive BM. 01/22 Patient is sedated with Fentanyl , versed in addition he is on Nimbex. Receiving HD. TF on hold for high residuals. 01/23 Patient is on Roto prone bed sedated and intubated. s/p HD yesterday with removal 3L. On Nimbex, afebrile. 01/24 Patient remains sedated with Versed, Fentanyl and remains on Nimbex. On PC/ AC with PEEP: 10, FIO2 down 40%. For HD today. Afebrile. 01/25 Patient remains sedated and intubated . On PC/AC with PEEP: 10 and FIO2 50% . s/p HD yesterday with removal 4.5L. Afebrile. 01/26 Patient is sedated with Fentanyl off versed and Nimbex. s/p bronch yesterday by Dr. Burch. On PRVC/AC with PEEP: 10 and FIO2 down to 50% s/p HD yesterday with removal 1.5. For another HD session today. 01/27 Patient is sedated with Fentanyl and intubated, s/p HD yesterday with removal 4L. Afebrile. On PRVC/AC mode with PEEP; 10 and FIO2 45% 01/28 Patient remains sedated with Fentanyl and intubated. s/p HD yesterday with removal 3L. Placed on Amio drip yesterday for Afib with RVR, 01/29 No acute events overnight. Sedated with Fentanyl and intubated. Afebrile. On PRVC/AC with PEEP: 10 and FIO2 70% decreased to 60% 01/30 No events overnight. Sedated with Diprivan on Amio drip and Cardizem 5mg/ hr. s/p HD yesterday with removal 2L. Spiked fever yesterday with T 101.7 .On PRVC/AC with PEEP: 10, FIO2 65% 01/31: Afebrile. FiO2 at 65%. PEEP at 10. Heart rate between 70 and 130. Cardizem drip at 15 mg an hour. For CT head today. Copious amounts of oral secretions. Minimal via suctioning 02/01: Currently afebrile. Heart rate consistently in the 120s to 140s. Cardizem drip back up to 15 mg an hour. More awake and withdrawing right upper , bilateral lower extremities. Moving head side to side. 02/02: Remains intubated and sedated with 15 mcg/min of propofol. In Afib with RVR in HR 130/min. Give additional 15 mg IVx1 and increase drip to 20 mg per hour. Moves L UE spontaneously. PEg and OR trach planned for today 02/03: Patient is status post trach and PEG yesterday 02-17. Currently remains on propofol and Cardizem infusions. Off all pressors. Rate control is improved, but still 100-110. Will increase carvedilol and start digoxin for improved rate control. Chest x-ray shows evidence of fluid overload, patient remains oliguric 02/04: Currently off all sedation. Awake weakly follows commands. Chest x-ray shows bilateral effusion and pulmonary edema-we'll request additional hemodialysis today. A. fib rate controlled and remains on 20 mg per hour of Cardizem Objective Vital Signs Date Time Temp Pulse Resp B/P Pulse Ox O2 Delivery O2 Flow Rate FiO2 02/04/17 08:24 50 02/04/17 08:24 95 02/04/17 06:00 141 02/04/17 04:00 99.0 19 137/74 131/62 Intake and Output 02/03/17 02/03/17 02/04/17 08:00 16:00 00:00 Intake Total 348 ml 474 ml 446 ml Output Total 105 ml 270 ml 265 ml Balance 243 ml 204 ml 181 ml Result Diagram: 02/04/17 0335 02/04/17 0335 Imaging Last Impressions Chest X-Ray 02/01/17 0600 Signed Impressions: Service Date/Time: February 06:38 - CONCLUSION: Improving aeration Daniel Cantu MD Head CT 01/31/17 0000 Signed Impressions: Service Date/Time: Tuesday, January 31, 2017 08:42 - CONCLUSION: 1. 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 Right basal ganglia lacunar infarct is age indeterminate. 2. Maurice sinusitis along with opacification of the middle ears and mastoid air cells bilaterally. Geovanny Lynch MD Abdomen X-Ray 01/21/17 0000 Signed Impressions: Service Date/Time: Saturday, January 21, 2017 08:41 - CONCLUSION: Nondiagnostic study. Gurvinder Collier MD Renal Ultrasound 01/09/17 0000 Signed Impressions: Service Date/Time: Monday, January 09, 2017 13:56 - CONCLUSION: 1. Right kidney is sonographically normal. 2. Benign-appearing 2.4 x 1.5 cm cortical cyst in the midpole of the left kidney. 3. Subcentimeter echogenic, non-shadowing foci in the midpole of the left kidney would be unusual for stones and may represent ectopic hilar fat. No hydronephrosis. 4. Urinary bladder is decompressed with a Alanis catheter. Douglas Ward MD Chest Ultrasound 01/09/17 0000 Signed Impressions: Service Date/Time: Monday, January 09, 2017 08:18 - CONCLUSION: No left-sided pleural effusion. The abnormality in the left chest on chest radiograph is likely related to mucous plugging. When patient had a CT scan yesterday the left lung was well aerated. Edgardo Mayorga MD Chest CT 01/08/17 0600 Signed Impressions: Service Date/Time: Sunday, January 08, 2017 08:46 - CONCLUSION: Massive cardiomegaly with panchamber enlargement extensive coronary calcifications. Stable trace pericardial effusion. Increasing bibasilar consolidative changes with minimal bilateral pleural effusions.. Rhys Fritz MD FACR Thoracentesis 01/08/17 0000 Signed Impressions: Service Date/Time: Sunday, January 08, 2017 16:08 - CONCLUSION: Uncomplicated CT-guided thoracentesis on the right. The left sided thoracentesis was not performed as there was no significant left pleural fluid. The abnormality on most recent chest x-ray was secondary to mucous plugging and left sided atelectasis. Edgardo Mayorga MD Objective Remarks GENERAL: 71-year-old male, critically ill obese SKIN: Warm and dry. No rash. Right heel ulcer 2 x 2 centimeters and evolving stage 0 sacral decubitus ulcer HEAD: Atraumatic. Normocephalic. EYES: Pupils equal and round, 5mm and reactive to 4 mm. No scleral icterus. No injection or drainage. ENT: No active bleeding. Clear secretions from mouth with suctioning NECK: Trachea midline. Large right-sided evolving hematoma without tracheal shift. Evolving ecchymoses. New trach without significant bleeding CARDIOVASCULAR: A. fib rate controlled. S1, S2 no S4 without murmur RESPIRATORY: Diminished breath sounds throughout especially in the bases bilaterally. Few crackles in bases bilaterally. Breath sounds equal bilaterally. GASTROINTESTINAL: Abdomen soft, obese non-tender, nondistended. No active bowel sounds MUSCULOSKELETAL: Extremities with 1+ peripheral edema. No obvious deformities. Posterior tibialis is palpable bilaterally. Right femoral Vas-Cath is clean dry and intact NEUROLOGICAL: Eyes are open tracks attempts to talk. Positive corneal reflex. Very weakly follows commands on all 4 extremities, Nods head Date of Insertion: January 05, 2017 Date of Insertion: January 17, 2017 Line: Central Venous Catheter Side: Left Location: Subclavian, Jugular A/P Assessment and Plan Neuro/Psych: Lacunar infarcts bilateral basal ganglia, left thalamus Acute metabolic encephalopathy Epistaxis Use PRN Ativan and fentanyl for agitation, vent synchrony Goal of RASS -0, Patient following commands today Completed EEG 01/30 revealed no epileptiform activity. Severe encephalopathy. CT brain 01/31 revealed bilateral basal ganglia and left thalamic CVA. Right basal ganglia CVA indeterminate age Dr. Cole/neurology following 01/12 New onset epistaxis, heparin discontinued until 01/31 and restarted Epistaxis-ENT consulted-nasal balloons in situ maintain balloons until 01/20 per ENT recommendation. Removed 01/20 but resumed bleeding so replaced- 01/21, now off ENT has followed- Dr. Byrd. Respiratory: Acute hypoxic respiratory failure Left lung consolidation 2/2 previous event of epistaxis, clotted blood left lung -resolved Probable aspiration Multilobar [id number] Bilateral pleural effusions SONU Continue with vent support keep sat >90%. s/p OR trach by Dr. Bhakta 02/02 Currently on DuoNeb scheduled every 6 hours with albuterol every 2 hours as needed ICU vent bundle. Pulmonology following- Dr. Burch Currently on prednisone 10 mg twice a day 01/08-right CT-guided thoracentesis-400 cc removed s/p bronch . by- Dr. 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 No obvious source of bleeding. s/p bronch 01/[address] Burch. -minimal secretions. CPAP 04/07 and, upto 2 hour trach collar. (Did not tolerate CPAP >1 hour on 02/03 so TP not attempted) CV: A. fib with RVR Left atrial appendage thrombus Acute Systolic CHF Cardiomyopathy Hypertension Dyslipidemia Continue with Amio at 200 mg twice a day, Coreg 25 BID. Monitor HR and BP keep MAP>65mmHg On Cardizem drip 20mg/hr for rate control. Attempt wean to DC Given Digoxin 0.25 mg IV x1 02/02. Scheduled digoxin 0.125 mg daily from 02/03/17. Dig level 1.1 02/04/1701/13- ASA discontinued due to epistaxis. IV heparin held at midnight for procedures-resume today 01/05 VLADIMIR( Meter Attendant)-left atrial thrombus EF 15-20%. Systolic function reduced. Diffuse hyperkinesis. 12/26 [facility] severe systolic dysfunction EF 1015%, mitral valve mild to moderate regurg, LAE, tricuspid Valve-mild to moderate regurg, small pericardial effusion, 12/19 cardiac cath left circumflex 90% occlusion VLADIMIR EF 15-20%. Management per Cardiology -Dr. Jimenez Patient is at high risk of bleeding with anticoagulation Renal: Acute on chronic kidney disease stage IV Nephrology following-Dr. Hahn Monitor renal function, I/O's, avoid nephrotoxins. VasCath placement Hemodialysis initiated 01/14. Consult IR for PermeCath on Sunday s/p HD 02/02 with removal 3L, next HD 02/05 but will request additional today due to pulm edema, effusion FEN/GI: Morbid obesity Hyperphosphatemia s/p PEG 02/03. Tube feeds at goal (Nepro at 50) Prevacid for GI prophylaxis Bowel Colace/Senokot twice a day. Having BM On Reglan 5 every 8 and erythromycin 200 every 8 for bowel motility/prokinetic PhosLo 667 3 times a day for hyperphosphatemia Heme: Normocytic anemia Thrombocytopenia Transfused 6 units PRBCs since admission Weakly positive HIT panel-CLIFFORD is negative. Repeat 01/30 with HIT negative Heparin drip currently restarted, but held for PEG and trach. Hematology is following. Post procedure, Dr Hahn started sq heparin, If no bleeding will change to IV heparin in 24 hours (02/05) ID: Likely aspiration pneumonia 01/06 urine, sputum, blood cultures-NGTD 01/06-Legionella urine antigen negative 01/09 - bronchoscopy - yeast/ID to follow 01/12 - blood cultures 2 - no growth 01/20 - blood cultures 2 - staph Epi 09/06 bottles- likely contaminant 01/29 - blood cultures 2 -no growth 01/30 - sputum -immature growth 01/30 - urine -no growth Continue with abx (Zosyn) Given Vanco x1 dose 01/29-Dr. Jade Gage following, Endocrine: Close monitoring per ICU protocol-medium dose regimen -- SSI Accu-Cheks every 6 hours for glycemic control Prophylaxis: GI Prophylaxis Prevacid 30 mg at night DVT Prophylaxis -- SCDs, Post procedure, Dr Hahn started sq heparin 02/03, If no bleeding will change to IV heparin in 24 hours (02/05) Lines: Peripheral IV's. Right femoral HD catheter 01/19, Left subclavian CVL 01/17-DC today, DC arterial line today Patient developed hematoma on right side of his neck from previous attempt of central line placement. Dispo: is Olena Muhammad [phone] Poor prognosis given resp failure, severe cardiomyopathy with left atrial thrombus, renal failure on HD, encephalopathy, multiorgan injury. Critical Care: The total critical care time was 35 minutes. Time to perform other separately billable procedures was not included in the critical care time. Chuck Sanchez MD Feb 04, 2017 09:23
--- NOTE | 2017-02-04 10:26 | HHI.NPPN ---
Subjective General Problems: Anemia, Edema, Heart Disease Renal Failure: Acute History of Present Illness 71-year-old the white male the who is transferred from [facility] to [facility] due to atrial fibrillation with fast ventricular response, he was in the heart catheterization lab and became unstable has to intubated the patient has chronic kidney disease, Cardiomyopathy ejection fraction of only 15% and has severe dilated cardiomyopathy with the clot in left atrium he is on heparin drip and currently on ventilator. Additional Remarks Oligoanuric. Demonstrates fluid overload. He appears to follow some commands. Objective Data Data 02/03/17 02/04/17 19:00 07:00 Intake Total 474 ml 819 ml Output Total 270 ml 655 ml Balance 204 ml 164 ml Intake Oral 0 ml 0 ml IV Total 301 ml 305 ml Tube Feeding 73 ml 394 ml Tube Irrigant 60 ml Other 100 ml 60 ml Output Urine Total 20 ml 105 ml Stool Total 250 ml 550 ml Vital Signs Date Time Temp Pulse Resp B/P Pulse Ox O2 Delivery O2 Flow Rate FiO2 02/04/17 10:00 77 02/04/17 08:24 50 02/04/17 08:24 95 50 02/04/17 08:15 50 02/04/17 08:00 98.7 80 21 159/79 100 165/72 02/04/17 08:00 80 02/04/17 08:00 50 02/04/17 06:00 141 02/04/17 04:38 93 50 02/04/17 04:00 136 02/04/17 04:00 99.0 136 19 137/74 91 131/62 02/04/17 04:00 136 137/74 131/62 02/04/17 04:00 50 02/04/17 02:00 108 02/04/17 01:09 93 50 02/04/17 00:01 80 02/04/17 00:00 50 02/04/17 00:00 82 02/04/17 00:00 82 121/68 130/60 02/04/17 00:00 98.5 82 18 121/68 92 130/60 02/03/17 23:05 80 02/03/17 23:01 79 02/03/17 23:00 81 02/03/17 22:03 99 50 02/03/17 22:01 82 02/03/17 22:00 80 02/03/17 21:56 80 02/03/17 21:51 83 02/03/17 21:13 20 02/03/17 21:01 84 02/03/17 21:01 116/56 02/03/17 21:01 84 116/56 110/54 02/03/17 21:01 84 02/03/17 21:00 85 17 115/58 91 02/03/17 21:00 85 02/03/17 21:00 85 115/58 02/03/17 20:00 100.6 145 20 157/102 92 148/72 02/03/17 20:00 145 02/03/17 20:00 145 02/03/17 20:00 145 157/102 148/72 02/03/17 20:00 50 02/03/17 19:15 93 50 02/03/17 19:00 151 131/83 145/69 02/03/17 19:00 151 21 131/83 92 145/69 02/03/17 19:00 151 02/03/17 18:00 137 02/03/17 18:00 137 17 118/79 94 138/68 02/03/17 18:00 137 118/79 138/68 02/03/17 17:32 19 02/03/17 17:00 121 17 105/80 93 127/62 02/03/17 17:00 121 105/80 127/62 02/03/17 16:00 99.2 135 30 97/78 92 113/56 02/03/17 16:00 135 97/78 113/56 02/03/17 16:00 135 02/03/17 16:00 50 02/03/17 15:35 94 50 02/03/17 15:22 50 02/03/17 14:00 140 02/03/17 14:00 50 02/03/17 12:00 99.7 85 18 132/83 93 141/62 02/03/17 12:00 50 02/03/17 12:00 85 02/03/17 12:00 85 132/83 141/62 02/03/17 11:28 50 02/03/17 11:23 92 50 -: 02/04/17 0335 02/04/17 0335 Physical Exam General Appearance: Well Developed Eyes Eye Exam: Pupils Equal Pulmonary Resp Exam: Rhonchi, Decreased Bases, Diminished Breath Sounds Cardiology CV Exam: Arrhythmia Gastrointestinal/Abdomen GI Exam: Soft, Non-Tender, Distended Extremeties Extremities Exam: Moderate Edema, Pitting Edema, Dependent Edema Neurologic Neuro Exam: Sedated Assessment/Plan Problem List: (1) Acute renal failure Plan: Oligoanuric. Dialysis dependent.Because of the fluid overload, we will dialyze him today. Severe cardiomyopathy prognosis is guarded. 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 Improved. Problem Qualifiers (1) CHF (congestive heart failure): Huy Xie MD Feb 04, 2017 10:26
[2017-02-04] MEDS: SODIUM CHLOR 0.9% 1000 ML INJ 1,000 ML IV PRN (11:44)
[2017-02-04] MEDS: HEPARIN SODIUM - IV 10,000 UNITS/10 ML VIAL PRN (11:44)
[2017-02-04] MEDS: GENTAMICIN SULFATE (DIALYSIS USE ONLY) 20 MG/2 ML VIAL IV PRN (11:44)
[2017-02-04 14:01] LABS: HEMATOCRIT 29.2 % (39.0-51.0); MEAN CELL VOLUME 89.5 FL (80.0-100.0); MEAN CORPUSCULAR HEMOGLOBIN 29.5 PG (27.0-34.0); MEAN CORPUSCULAR HGB CONC 32.9 % (32.0-36.0); PLATELET COUNT 125 TH/MM3 (150-450); RED BLOOD COUNT 3.26 MIL/MM3 (4.50-5.90); RED CELL DISTRIBUTION WIDTH 17.7 % (11.6-17.2); REVIEW FLAG FINAL; WHITE BLOOD COUNT 4.8 TH/MM3 (4.0-11.0)
[2017-02-04 14:07] LABS: APTT (PATIENT) 25.4 SEC (24.3-30.1); INTERNATIONAL NORMALIZED RATIO 1.1 RATIO
[2017-02-04] MEDS: HEPARIN-D5W INJ 250 ML IV SCH (16:42)
--- NOTE | 2017-02-04 16:47 | HHI.PR ---
Subjective Remarks Trach is in.Lethargic but responds to family and opens eyes ,and on Vent support ,now on PEEP 8. FIO2 at 50%. Had dialysis . tolerates feeds . Moved hands and fingers Objective Vital Signs Date Time Temp Pulse Resp B/P Pulse Ox O2 Delivery O2 Flow Rate FiO2 02/04/17 14:00 106 02/04/17 13:10 50 02/04/17 12:00 50 02/04/17 12:00 125 02/04/17 12:00 98.7 125 29 156/89 95 Arterial Line 02/04/17 10:55 94 50 02/04/17 10:00 77 02/04/17 08:24 50 02/04/17 08:24 95 50 02/04/17 08:15 50 02/04/17 08:00 98.7 80 21 159/79 100 165/72 02/04/17 08:00 80 02/04/17 08:00 50 02/04/17 08:00 80 159/79 165/72 02/04/17 06:00 141 02/04/17 04:38 93 50 02/04/17 04:00 136 02/04/17 04:00 99.0 136 19 137/74 91 131/62 02/04/17 04:00 136 137/74 131/62 02/04/17 04:00 50 02/04/17 02:00 108 02/04/17 01:09 93 50 02/04/17 00:01 80 02/04/17 00:00 50 02/04/17 00:00 82 02/04/17 00:00 82 121/68 130/60 02/04/17 00:00 98.5 82 18 121/68 92 130/60 02/03/17 23:05 80 02/03/17 23:01 79 02/03/17 23:00 81 02/03/17 22:03 99 50 02/03/17 22:01 82 02/03/17 22:00 80 02/03/17 21:56 80 02/03/17 21:51 83 02/03/17 21:13 20 02/03/17 21:01 84 02/03/17 21:01 116/56 02/03/17 21:01 84 116/56 110/54 02/03/17 21:01 84 02/03/17 21:00 85 17 115/58 91 02/03/17 21:00 85 02/03/17 21:00 85 115/58 02/03/17 20:00 100.6 145 20 157/102 92 148/72 02/03/17 20:00 145 02/03/17 20:00 145 02/03/17 20:00 145 157/102 148/72 02/03/17 20:00 50 02/03/17 19:15 93 50 02/03/17 19:00 151 131/83 145/69 02/03/17 19:00 151 21 131/83 92 145/69 02/03/17 19:00 151 02/03/17 18:00 137 02/03/17 18:00 137 17 118/79 94 138/68 02/03/17 18:00 137 118/79 138/68 02/03/17 17:32 19 02/03/17 17:00 121 17 105/80 93 127/62 02/03/17 17:00 121 105/80 127/62 I/O 02/03/17 02/03/17 02/03/17 02/04/17 02/04/17 02/04/17 07:00 15:00 23:00 07:00 15:00 23:00 Intake Total 348 ml 474 ml 446 ml 373 ml Output Total 105 ml 270 ml 265 ml 390 ml 4000 ml Balance 243 ml 204 ml 181 ml -17 ml -4000 ml Intake Oral 0 ml 0 ml IV Total 198 ml 301 ml 200 ml 105 ml Tube Feeding 73 ml 186 ml 208 ml Tube Irrigant 60 ml Other 150 ml 100 ml 60 ml Output Urine Total 5 ml 20 ml 65 ml 40 ml Stool Total 100 ml 250 ml 200 ml 350 ml Hemodialysis 4000 ml Result Diagram: 02/04/17 1338 02/04/17 0335 Objective Remarks GENERAL: This is an obese, elderly man who is awake HEENT: Head is normocephalic. Pupils are reactive. NECK Neck supple. Trachea is midline.Trach tube is in. Neck Hematoma ++ CHEST: Occ crackles at both lung bases. .Decreased breath sounds at bases HEART: The heart sounds are irregular S1-S2. No murmur. ABDOMEN: Soft. Obese without masses. No organomegaly. EXTREMITIES: No edema. Decreased peripheral pulses. The patient is lethargic. SKIN: Dry and cool.Neuro :responds and moves arms a little. Assessment and Plan Assessment and Plan IMPRESSION 1. Hypoxic respiratory failure. 2. Left lower lobe atelectasis and possible pneumonia with aspiration. 3. Left pleural effusion resolved. 4. Cardiomyopathy and congestive heart failure. 5. Obstructive sleep apnea. 6. Diabetes mellitus. 7. Atrial fibrillation. 8. Nasopharyngeal bleed Plan : 1. PSV /CPAP 10/5 CM today 2. PEEP at 5 CM, FIO2 to 50 % 3. Antibiotics per ID. 4. CBC ,BMP in am. 5. Nebs qid , duoneb. 6. Trach suction and Lavage 7. Tube feeds at 60 CC 8. Prednisone 15 mg daily 9. Dialysis per renal. 10. PT evaluation and Up in chair Julius Burch MD Feb 04, 2017 16:47
[2017-02-04 23:06] LABS: APTT (PATIENT) 45.5 SEC (24.3-30.1)
[2017-02-05] VITALS (19 sets, daily range): BP systolic 137–185; BP diastolic 71–91; PULSE 79–140; RESP 18–24; TEMP 98.8–100.4; O2SAT 93–98
[2017-02-05] MEDS: ACETAMINOPHEN 325 MG TAB PO PRN (00:02)
[2017-02-05] MEDS: DILTIAZEM INJ 125 MG in SODIUM CHLORIDE 0.9% INJ 100 ML IV SCH ×4 (01:07→21:27)
[2017-02-05] MEDS: CHLORHEXIDINE GLUCONATE 2 % 1 PACK (2 CLOTHS) TOP SCH (01:07)
[2017-02-05] MEDS: RESP: ALBUTEROL 2.5 MG/IPRATROPIUM 0.5 MG NEB (SCH) NEB ×4 (03:25→19:41)
--- NOTE | 2017-02-05 04:29 | RADRPT ---
EXAM DATE/TIME: 02/05/2017 02:59 [facility] COMPARISON: CHEST SINGLE AP, February 04, 2017, 3:17. INDICATIONS : Shortness of breath, possible pulmonary disease. MEDICAL HISTORY : Hypertension. SURGICAL HISTORY : Coronary artery stent. ENCOUNTER: Subsequent ACUITY: 1 month PAIN SCORE: Non-responsive. LOCATION: Bilateral chest FINDINGS: A single view of the chest demonstrates the tracheostomy tube is in good position. The cardiac silhou ette remains enlarged. There is pulmonary vascular congestion with consolidation of both lung bases u nchanged. No visible pneumothorax. Osseous structures are intact. CONCLUSION: Stable pulmonary vascular congestion right worse the left. Tracheostomy tube in good position. Heart remains enlarged Orlin Mascorro MD on February 05, 2017 at 4:27 Board Certified Radiologist. This report was verified electronically.
[2017-02-05 05:06] LABS: AUTOMATED NEUTROPHIL # 4.4 TH/MM3 (1.8-7.7); BASOPHIL % 0.6 % (0.0-2.0); EOSINOPHIL # 0.5 TH/MM3 (0-0.4); EOSINOPHIL % 8.8 % (0.0-4.0); HEMATOCRIT 26.5 % (39.0-51.0); HEMO FLAGS DIFF FINAL; LYMPH % 6.6 % (9.0-44.0); LYMPHOCYTE # 0.4 TH/MM3 (1.0-4.8); MEAN CELL VOLUME 88.7 FL (80.0-100.0); MEAN CORPUSCULAR HEMOGLOBIN 29.5 PG (27.0-34.0); MEAN CORPUSCULAR HGB CONC 33.3 % (32.0-36.0); MONO % 3.6 % (0.0-8.0); NEUT % 80.4 % (16.0-70.0); PLATELET COUNT 126 TH/MM3 (150-450); RED BLOOD COUNT 2.99 MIL/MM3 (4.50-5.90); RED CELL DISTRIBUTION WIDTH 17.5 % (11.6-17.2); WHITE BLOOD COUNT 5.5 TH/MM3 (4.0-11.0)
[2017-02-05 05:12] LABS: APTT (PATIENT) 55.2 SEC (24.3-30.1)
[2017-02-05] MEDS: ARTIFICIAL TEARS OPTH SOLN 15 ML BTL EACH EYE SCH ×2 (05:18→13:51)
[2017-02-05] MEDS: PIPERACIL-TAZO 2.25 GM PREMIX 50 ML IV SCH ×3 (05:18→21:27)
[2017-02-05] MEDS: METOCLOPRAMIDE HCL 10 MG/2 ML VIAL IV PUSH SCH ×3 (05:18→21:37)
[2017-02-05 05:22] LABS: ANION GAP 13 MEQ/L (5-15); AST (GOT) 16 U/L (15-37); BLOOD UREA NITROGEN 69 MG/DL (7-18); CHLORIDE 99 MEQ/L (98-107); GLOMERULAR FILTRATION RATE 12 ML/MIN (>89); POTASSIUM 3.2 MEQ/L (3.5-5.1); SODIUM (NA) 139 MEQ/L (136-145)
[2017-02-05 05:24] LABS: ALT (GPT) 30 U/L (12-78)
[2017-02-05 05:26] LABS: ALKALINE PHOSPHATASE 66 U/L (45-117); TOTAL BILIRUBIN ADULT 0.6 MG/DL (0.2-1.0)
[2017-02-05] MEDS: INSULIN ASPART SUPPLEMENTAL SCALE SQ SCH ×3 (06:00→18:00)
[2017-02-05] MEDS: HEPARIN-D5W INJ 250 ML IV SCH ×2 (06:29→22:49)
[2017-02-05] MEDS: SODIUM CHLOR 0.9% 1000 ML INJ 1,000 ML IV PRN (08:31)
[2017-02-05] MEDS: HEPARIN SODIUM - IV 10,000 UNITS/10 ML VIAL PRN (08:32)
[2017-02-05] MEDS: EPOETIN ALFA 4,000 UNITS/ML VIAL IV PRN (08:32)
[2017-02-05] MEDS: GENTAMICIN SULFATE (DIALYSIS USE ONLY) 20 MG/2 ML VIAL IV PRN (08:32)
[2017-02-05] MEDS: CALCIUM ACETATE 667 MG CAP PO SCH ×3 (08:42→17:17)
[2017-02-05] MEDS: AMIODARONE 200 MG TAB PO SCH ×2 (08:42→21:28)
[2017-02-05] MEDS: LANSOPRAZOLE SOLUTAB 30 MG TAB NG SCH (08:42)
[2017-02-05] MEDS: CARVEDILOL 12.5 MG TAB PO SCH ×2 (08:43→21:28)
[2017-02-05] MEDS: predniSONE 10 MG TAB PO SCH (08:43)
[2017-02-05] MEDS: LACTULOSE SYRUP 20 GM/30 ML CUP PO SCH (08:43)
[2017-02-05] MEDS: DIGOXIN SOLUTION 0.125 MG/2.5 ML CUP PO SCH (08:43)
[2017-02-05] MEDS: SENNOSIDES SYRUP 8.8 MG/5 ML CUP PO SCH ×2 (08:43→21:28)
[2017-02-05] MEDS: DOCUSATE SODIUM 100 MG/10 ML UDC PO SCH ×2 (08:43→21:28)
[2017-02-05] MEDS: CHLORHEXIDINE 0.12% (ORAL KIT) 15 ML CUP MT SCH ×2 (08:44→20:25)
[2017-02-05] MEDS: SODIUM CHLORIDE 0.9% FLUSH 10 ML FLUSH IVF SCH (08:44)
[2017-02-05] MEDS: SODIUM CHLORIDE 0.9% FLUSH 10 ML FLUSH IV FLUSH SCH ×2 (08:44→20:25)
--- NOTE | 2017-02-05 09:54 | HHI.CCPN ---
Subjective Remarks/Hospital Course This is a 71-year-old gentleman that presented to [facility] secondary to dyspnea and atrial fibrillation with RVR. The patient has a medical history significant for obesity and hypertension. During his hospitalization at [facility], the patient underwent an echocardiogram which showed severe systolic dysfunction with an ejection fraction of 1015 % the patient then underwent a cardiac catheterization showing significance with left circumflex 90%. The patient underwent multiple attempts of unsuccessful synchronized cardioversion. The patient also underwent medical management with beta blockers, and calcium channel blockers that were also unsuccessful. The patient was transferred to [facility] for cardiac ablation with Dr. Jimenez. The patient was scheduled for cardiac ablation, the procedure was canceled. The patient required emergent intubation and required ventilator management a VLADIMIR was performed showing a clot in the left atrial appendage. The patient was placed on IV Cardizem, and an amiodarone infusion. Critical Care medicine was consulted for management. 01/06: Tmax 97.4. The patient remained on elevated vent settings with FiO2 of 1.0 overnight, PEEP requirements were increased to 8, to maintain a PaO2 of greater than [address] scan of the chest was obtained which noted bilateral effusions small, basilar consolidations right worse than the left, and a loculated area representing a possible pneumonia process, empyema, as well as aspiration or just loculated fluid as well as a small pericardial effusion. The patient continues on Cardizem and amiodarone infusions with a heart rate overnight 80s -115. The patient's vasopressor requirements of phenylephrine diminished to 20 mcgs. 01/07: Tmax 99.2. Yesterday the central line was placed for vasoactive medications and CVP monitoring, small hematoma noted near the right IJ area soft no compression of major vessels, with resolution of bleeding in that area. Phenylephrine was discontinued yesterday. The patient heart rate remains today [id number]. Cardizem infusion has been discontinued in the setting of EF of 10-15%. Esmolol infusion to be initiated this a.m.. Coumadin was initiated last night now placed on hold due to patient bleeding from nasopharynx and oropharynx. INR currently 1.2. Plan for CT thorax tomorrow, with possible IR intervention versus CVT consultation for possible empyema the patient will remain on heparin infusion, and transition onto Coumadin after any potential procedures to be initiated. Chest x-ray slightly improved FiO2 decreasing now 70%. Sedation vacation yesterday revealed GCS 11 T, patient alert responsive following commands. With initiation of antibiotics, leukocytosis resolved. ID consulted Dr. Gage. Blood cultures are pending. 01/08: Patient's heart rate 110-[address] scan of the chest imaging revealed fluid. Plan for thoracentesis and and studies of pleural fluid , this afternoon. The patient remains on amiodarone and heparin infusions, per cardiology. Heparin held, for thoracentesis this afternoon, and then will be resumed. The patient was maintained on CPAP trial for approximately one hour yesterday. During sedation vacation patient was alert following commands recognizing family. Plan to resume CPAP trials this afternoon post thoracentesis. 01/09: The patient underwent CT-guided thoracentesis yesterday , on the right side noted 400 cc of fluid was removed , with specimens ordered to be sent for evaluation .This morning chest x-ray performed showing almost complete opacification of the left lung. FiO2 requirements increase patient on FiO2 of 80%, O2 sat 94%. Left chest ultrasound obtained revealing no fluid. Consent obtained BAL performed, revealing emanating from the nearest previously ( patient was noted to have epistaxis with initiation of heparin on 01/06). Blood clots noted in left lung upon visualization with bronchoscopy, saline lavage applied, minimal blood clots removed. The patient was initiated on Mucomyst 10% , and pulmonology was consulted. Dr. Tasia Lama following. The patient shows no signs or evidence of bleeding actively, plan to consult ENT if signs of active bleeding become evident. Hemoglobin remains stable.The patient converted into sinus rhythm is today afternoon. Cardiology management of medications, IV amiodarone discontinued this afternoon. 01/10: Tmax 99.0. Chest x-ray shows slight improvement of left lung today. Plan for repeat bronchoscopy per Dr. Burch this a.m, and the patient continues on Mucomyst. The patient's cardiac rhythm reverted to A. fib last evening, amiodarone IV infusion reinstituted per Dr. Jimenez. 01/11: TMax 100.0. Much improved chest x-ray this morning. The patient continues in A. fib with a rate of 120, he continues on amiodarone, heparin infusion per cardiology. No evidence of active bleeding. 5/12 Patient Remains sedated with Diprivan, intubated. T:99.9. On Neosyn 15 mics , heparin and Amio drips. In Afib with RRV. Patient s/p repeat bronch with BAL yesterday by Dr. Burch and ETT replacement by Dr. Sanchez. On PC/AC with PEEP:14 , FIO2 100%. 01/13: TMax 100.2. Last night the nurse reported that the patient had a small amount of epistaxis, and blood in the oropharynx noted. The area continued to bleed during the night. ENT has been consulted. Heparin has been placed on hold , ASA has been discontinued in the setting of acute renal failure. The patient continues on amiodarone infusion , heart rate 120's. Neosynephrine has been discontinued, and Levophed instituted. Creatinine noted to be 4.5. As per report , states patient does not want dialysis. The patient continues on elevated PEEP of 14. 5/14: Heparin was discontinued yesterday in the setting of continued bleeding in the nasal/ oropharyngeal region. ENT was consulted and nasal packing was applied. During the night the patient still had small noted amount of bleeding from the oropharyngeal area plan today for oropharyngeal packing. Hgb 9, will transfuse .The patient was placed on norepinephrine for currently at 1-2 mcgs per minute. PEEP has been decreased to 12, with adequate oxygenation a PaO2 of 71. 5/15: Tmax 99.0. The patient continues to be anemic and thrombocytopenic, contributory factors being uremia. The patient's /family decided to pursue hemodialysis at this point. The patient received 1 unit of packed red blood cells yesterday. The patient was initiated on dialysis yesterday afternoon, with approximately 3 L removed. Nasal gauze packing removed and placement of nasal balloons by ENT yesterday. Oral gauze packing to be removed today. The patient received 2 separate doses of digoxin, A. fib heart rate ranging 80- < 120. The patient continues to have high ventilatory requirements, FiO2 was increased throughout the night to currently 80%, to maintain O2 sat greater than 92%. 01/16: FiO2 at 85%. Large clots removed from oropharynx overnight. Transfused 2 units PRBCs yesterday. No bowel movement. Tolerating tube feeds at 40 cc now with Nepro 01/17: Maximum 100.6. CURRENT TEMPERATURE 98.1. Central line pulled out yesterday. Flolan initiated yesterday and FiO2 down to 65%. Tolerating tube feeds. No bowel movement. Arousable weakly follow commands yesterday 01/18: Tmax 99.8. Currently afebrile. Initially, hemoptysis with desaturation requiring bronchoscopy. See bronchoscopy note. Roto-Rest bed ordered. FiO2 from 100-70% currently. On Nimbex drip. No BM. Tolerating tube feeds. 01/19: Afebrile. FiO2 down to 40%. We will attempt a wean Flolan today. On Nimbex drip. Positive BM yesterday. Tolerating tube feeds. 01/20: FiO2 back to 100%. Flolan "fell off "overnight. Ventilator adjusted back to 100%. Flolan reinstituted. Chest x-ray and ABG pending. Tolerating tube feeds. Positive BM. Afebrile. 01/21: Intolerant of tube feeding. KUB pending. Afebrile. Bleeding from bilateral nares and Alanis overnight. Argatroban has been held. Positive BM. 01/22 Patient is sedated with Fentanyl , versed in addition he is on Nimbex. Receiving HD. TF on hold for high residuals. 01/23 Patient is on Roto prone bed sedated and intubated. s/p HD yesterday with removal 3L. On Nimbex, afebrile. 01/24 Patient remains sedated with Versed, Fentanyl and remains on Nimbex. On PC/ AC with PEEP: 10, FIO2 down 40%. For HD today. Afebrile. 01/25 Patient remains sedated and intubated . On PC/AC with PEEP: 10 and FIO2 50% . s/p HD yesterday with removal 4.5L. Afebrile. 01/26 Patient is sedated with Fentanyl off versed and Nimbex. s/p bronch yesterday by Dr. Burch. On PRVC/AC with PEEP: 10 and FIO2 down to 50% s/p HD yesterday with removal 1.5. For another HD session today. 01/27 Patient is sedated with Fentanyl and intubated, s/p HD yesterday with removal 4L. Afebrile. On PRVC/AC mode with PEEP; 10 and FIO2 45% 01/28 Patient remains sedated with Fentanyl and intubated. s/p HD yesterday with removal 3L. Placed on Amio drip yesterday for Afib with RVR, 01/29 No acute events overnight. Sedated with Fentanyl and intubated. Afebrile. On PRVC/AC with PEEP: 10 and FIO2 70% decreased to 60% 01/30 No events overnight. Sedated with Diprivan on Amio drip and Cardizem 5mg/ hr. s/p HD yesterday with removal 2L. Spiked fever yesterday with T 101.7 .On PRVC/AC with PEEP: 10, FIO2 65% 01/31: Afebrile. FiO2 at 65%. PEEP at 10. Heart rate between 70 and 130. Cardizem drip at 15 mg an hour. For CT head today. Copious amounts of oral secretions. Minimal via suctioning 02/01: Currently afebrile. Heart rate consistently in the 120s to 140s. Cardizem drip back up to 15 mg an hour. More awake and withdrawing right upper , bilateral lower extremities. Moving head side to side. 02/02: Remains intubated and sedated with 15 mcg/min of propofol. In Afib with RVR in HR 130/min. Give additional 15 mg IVx1 and increase drip to 20 mg per hour. Moves L UE spontaneously. PEg and OR trach planned for today 02/03: Patient is status post trach and PEG yesterday 02-17. Currently remains on propofol and Cardizem infusions. Off all pressors. Rate control is improved, but still 100-110. Will increase carvedilol and start digoxin for improved rate control. Chest x-ray shows evidence of fluid overload, patient remains oliguric 02/04: Currently off all sedation. Awake weakly follows commands. Chest x-ray shows bilateral effusion and pulmonary edema-we'll request additional hemodialysis today. A. fib rate controlled and remains on 20 mg per hour of Cardizem 02/05 No acute events overnight. Patient remains on ventilator via trach. On Heparin drip and Cardizem drip 15mg/hr, s/p HD yesterday with removal 4L. On no sedation. Afebrile. Objective Vital Signs Date Time Temp Pulse Resp B/P Pulse Ox O2 Delivery O2 Flow Rate FiO2 02/05/17 08:00 87 02/05/17 08:00 50 02/05/17 08:00 99.9 23 167/84 95 Intake and Output 02/04/17 02/04/17 02/04/17 07:59 15:59 23:59 Intake Total 373 ml 397 ml 748 ml Output Total 390 ml 4295 ml 150 ml Balance -17 ml -3898 ml 598 ml Result Diagram: 02/05/17 0327 02/05/17 0327 Other Results Laboratory Tests Test 02/04/17 02/04/17 02/05/17 13:38 22:34 03:27 White Blood Count 4.8 TH/MM3 5.5 TH/MM3 Red Blood Count 3.26 MIL/MM3 2.99 MIL/MM3 Hemoglobin 9.6 GM/DL 8.8 GM/DL Hematocrit 29.2 % 26.5 % Mean Corpuscular Volume 89.5 FL 88.7 FL Mean Corpuscular Hemoglobin 29.5 PG 29.5 PG Mean Corpuscular Hemoglobin 32.9 % 33.3 % Concent Red Cell Distribution Width 17.7 % 17.5 % Platelet Count 125 TH/MM3 126 TH/MM3 Mean Platelet Volume 9.4 FL 9.8 FL Prothrombin Time 12.0 SEC Prothromb Time International 1.1 RATIO Ratio Activated Partial 25.4 SEC 45.5 SEC 55.2 SEC Thromboplast Time Neutrophils (%) (Auto) 80.4 % Lymphocytes (%) (Auto) 6.6 % Monocytes (%) (Auto) 3.6 % Eosinophils (%) (Auto) 8.8 % Basophils (%) (Auto) 0.6 % Neutrophils # (Auto) 4.4 TH/MM3 Lymphocytes # (Auto) 0.4 TH/MM3 Monocytes # (Auto) 0.2 TH/MM3 Eosinophils # (Auto) 0.5 TH/MM3 Basophils # (Auto) 0.0 TH/MM3 CBC Comment DIFF FINAL Differential Comment Sodium Level 139 MEQ/L Potassium Level 3.2 MEQ/L Chloride Level 99 MEQ/L Carbon Dioxide Level 27.0 MEQ/L Anion Gap 13 MEQ/L Blood Urea Nitrogen 69 MG/DL Creatinine 4.78 MG/DL Estimat Glomerular Filtration 12 ML/MIN Rate Random Glucose 126 MG/DL Calcium Level 7.6 MG/DL Total Bilirubin 0.6 MG/DL Aspartate Amino Transf 16 U/L (AST/SGOT) Alanine Aminotransferase 30 U/L (ALT/SGPT) Alkaline Phosphatase 66 U/L Total Protein 5.6 GM/DL Albumin 2.2 GM/DL Imaging Last Impressions Chest X-Ray 02/05/17 06 Signed Impressions: Service Date/Time: Sunday, February 05, 2017 02:59 - CONCLUSION: Stable pulmonary vascular congestion right worse the left. Tracheostomy tube in good position. Heart remains enlarged Orlin Mascorro MD Head CT 01/31/17 0000 Signed Impressions: Service Date/Time: Tuesday, January 31, 2017 08:42 - CONCLUSION: 1. 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 Right basal ganglia lacunar infarct is age indeterminate. 2. Maurice sinusitis along with opacification of the middle ears and mastoid air cells bilaterally. Geovanny Lynch MD Abdomen X-Ray 01/21/17 0000 Signed Impressions: Service Date/Time: Saturday, January 21, 2017 08:41 - CONCLUSION: Nondiagnostic study. Gurvinder Collier MD Renal Ultrasound 01/09/17 0000 Signed Impressions: Service Date/Time: Monday, January 09, 2017 13:56 - CONCLUSION: 1. Right kidney is sonographically normal. 2. Benign-appearing 2.4 x 1.5 cm cortical cyst in the midpole of the left kidney. 3. Subcentimeter echogenic, non-shadowing foci in the midpole of the left kidney would be unusual for stones and may represent ectopic hilar fat. No hydronephrosis. 4. Urinary bladder is decompressed with a Alanis catheter. Douglas Ward MD Chest Ultrasound 01/09/17 0000 Signed Impressions: Service Date/Time: Monday, January 09, 2017 08:18 - CONCLUSION: No left-sided pleural effusion. The abnormality in the left chest on chest radiograph is likely related to mucous plugging. When patient had a CT scan yesterday the left lung was well aerated. Edgardo Mayorga MD Chest CT 01/08/17 0600 Signed Impressions: Service Date/Time: Sunday, January 08, 2017 08:46 - CONCLUSION: Massive cardiomegaly with panchamber enlargement extensive coronary calcifications. Stable trace pericardial effusion. Increasing bibasilar consolidative changes with minimal bilateral pleural effusions.. Rhys Fritz MD FACR Thoracentesis 01/08/17 0000 Signed Impressions: Service Date/Time: Sunday, January 08, 2017 16:08 - CONCLUSION: Uncomplicated CT-guided thoracentesis on the right. The left sided thoracentesis was not performed as there was no significant left pleural fluid. The abnormality on most recent chest x-ray was secondary to mucous plugging and left sided atelectasis. Edgardo Mayorga MD Objective Remarks GENERAL: 71-year-old male, critically ill obese SKIN: Warm and dry. No rash. Right heel ulcer 2 x 2 centimeters and evolving stage 0 sacral decubitus ulcer HEAD: Atraumatic. Normocephalic. EYES: Pupils equal and round, 5mm and reactive to 4 mm. No scleral icterus. No injection or drainage. ENT: No active bleeding. Clear secretions from mouth with suctioning NECK: Trachea midline. Large right-sided evolving hematoma without tracheal shift. Evolving ecchymoses. trach without significant bleeding CARDIOVASCULAR: A. fib rate controlled. S1, S2 no S4 without murmur RESPIRATORY: Diminished breath sounds throughout especially in the bases bilaterally. Breath sounds equal bilaterally. GASTROINTESTINAL: Abdomen soft, obese non-tender, nondistended. No active bowel sounds MUSCULOSKELETAL: Extremities with 1+ peripheral edema. No obvious deformities. Posterior tibialis is palpable bilaterally. Right femoral Vas-Cath is clean dry and intact NEUROLOGICAL: Eyes are open tracks attempts to talk. Positive corneal reflex. Very weakly follows commands on all 4 extremities, Nods head Date of Insertion: January 05, 2017 Date of Insertion: January 17, 2017 Line: Central Venous Catheter Side: Left Location: Subclavian, Jugular A/P Assessment and Plan Neuro/Psych: Lacunar infarcts bilateral basal ganglia, left thalamus Acute metabolic encephalopathy Epistaxis Use PRN Ativan and fentanyl for agitation, vent synchrony Completed EEG 01/30 revealed no epileptiform activity. Severe encephalopathy. CT brain 01/31 revealed bilateral basal ganglia and left thalamic CVA. Right basal ganglia CVA indeterminate age Dr. Cole/neurology following 01/12 New onset epistaxis, heparin discontinued until 01/31 and restarted Epistaxis-ENT consulted-nasal balloons in situ maintain balloons until 01/20 per ENT recommendation. Removed 01/20 but resumed bleeding so replaced- 01/21, now off ENT has followed- Dr. Byrd. Respiratory: Acute hypoxic respiratory failure Left lung consolidation 2/2 previous event of epistaxis, clotted blood left lung -resolved Probable aspiration Multilobar [id number] Bilateral pleural effusions SONU Continue with vent support keep sat >90%. s/p OR trach by Dr. Bhakta 02/02 DuoNeb scheduled every 6 hours with albuterol every 2 hours as needed ICU vent bundle. Pulmonology following- Dr. Burch Pulm toilet, trach care, SBT trials as dennis Currently on prednisone 15mg daily 01/08-right CT-guided thoracentesis-400 cc removed s/p bronch . by- Dr. 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 No obvious source of bleeding. s/p bronch 01/[address] Burch. -minimal secretions. CV: A. fib with RVR Left atrial appendage thrombus Acute Systolic CHF Cardiomyopathy Hypertension Dyslipidemia Continue with Amio at 200 mg twice a day, Coreg 25 BID. Monitor HR and BP keep MAP>65mmHg On Cardizem drip 15mg/hr for rate control. Attempt wean to DC On digoxin 0.125 mg daily Dig level 1.1 02/04 01/13- ASA discontinued due to epistaxis. IV heparin held at midnight for procedures-resume today 01/05 VLADIMIR( [employer])-left atrial thrombus EF 15-20%. Systolic function reduced. Diffuse hyperkinesis. 12/26 [facility] severe systolic dysfunction EF 1015%, mitral valve mild to moderate regurg, LAE, tricuspid Valve-mild to moderate regurg, small pericardial effusion, 12/19 cardiac cath left circumflex 90% occlusion VLADIMIR EF 15-20%. Management per Cardiology -Dr. Jimenez Renal: Acute on chronic kidney disease stage IV Nephrology following-Dr. Hahn Monitor renal function, I/O's, avoid nephrotoxins. VasCath placement Hemodialysis initiated 01/14. Will discuss with renal re PermeCath placement s/p HD 02/04 with removal 4L, FEN/GI: Morbid obesity Hyperphosphatemia s/p PEG 02/03. Tube feeds at goal (Nepro at 50) Prevacid for GI prophylaxis Bowel Colace/Senokot twice a day. On Reglan 5 every 8 and erythromycin 200 every 8 for bowel motility/prokinetic PhosLo 667 3 times a day for hyperphosphatemia Heme: Normocytic anemia Thrombocytopenia Transfused 6 units PRBCs since admission Weakly positive HIT panel-CLIFFORD is negative. Repeat 01/30 with HIT negative On Heparin drip , monitor CBC, coags Hematology is following. ID: Likely aspiration pneumonia 01/06 urine, sputum, blood cultures-NGTD 01/06-Legionella urine antigen negative 01/09 - bronchoscopy - yeast/ID to follow 01/12 - blood cultures 2 - no growth 01/20 - blood cultures 2 - staph Epi 09/06 bottles- likely contaminant 01/29 - blood cultures 2 -no growth 01/30 - sputum -immature growth 01/30 - urine -no growth Continue with abx (Zosyn) Given Vanco x1 dose 01/29-Dr. Jade Gage following, Endocrine: Close monitoring per ICU protocol-medium dose regimen -- SSI Accu-Cheks every 6 hours for glycemic control Prophylaxis: GI Prophylaxis Prevacid 30 mg at night DVT Prophylaxis -- SCDs, heparin drip Lines: Peripheral IV's. Right femoral HD catheter 01/19, Patient developed hematoma on right side of his neck from previous attempt of central line placement. Dispo: is Olena Muhammad [phone] Poor prognosis given resp failure, severe cardiomyopathy with left atrial thrombus, renal failure on HD, encephalopathy, multiorgan injury. Critical Care: The total critical care time was 30 minutes. Time to perform other separately billable procedures was not included in the critical care time. Ari Betancourt MD Feb 05, 2017 09:54
[2017-02-05] MEDS: ALBUMIN HUMAN 25% 25 GM/100 ML BAGP IV PRN (09:56)
--- NOTE | 2017-02-05 10:46 | PD.ONC.PN ---
Subjective Subjective Remarks Afebrile overnight. Patient on mechanical ventilation via trach. Is now awake and alert, following commands. Receiving dialysis at bedside. Tolerating heparin gtt. Objective Data Date Time Temp Pulse Resp B/P Pulse Ox O2 Delivery O2 Flow Rate FiO2 02/05/17 10:00 79 02/05/17 08:00 87 02/05/17 08:00 50 02/05/17 08:00 99.9 87 23 167/84 95 02/05/17 07:30 96 40 02/05/17 07:30 40 02/05/17 06:00 80 02/05/17 04:00 50 02/05/17 04:00 129 02/05/17 04:00 98.8 129 20 185/91 96 02/05/17 03:27 97 45 02/05/17 02:00 80 02/05/17 00:51 98 45 02/05/17 00:00 50 02/05/17 00:00 99.8 82 22 143/78 93 02/05/17 00:00 82 02/04/17 22:00 81 02/04/17 20:21 92 50 02/04/17 20:00 50 02/04/17 20:00 99.9 135 30 169/106 92 02/04/17 20:00 135 02/04/17 18:00 136 02/04/17 17:16 93 50 02/04/17 16:00 96 02/04/17 16:00 99.5 96 25 123/59 93 02/04/17 16:00 50 02/04/17 14:00 106 02/04/17 13:10 50 02/04/17 12:00 50 02/04/17 12:00 125 02/04/17 12:00 98.7 125 29 156/89 95 Arterial Line 02/04/17 10:55 94 50 02/05/17 02/05/17 02/05/17 07:00 15:00 23:00 Intake Total 595 ml Output Total 140 ml Balance 455 ml Result Diagram: 02/05/17 0327 02/05/17 0327 Laboratory Results Laboratory Tests Test 02/04/17 02/04/17 02/05/17 13:38 22:34 03:27 White Blood Count 4.8 TH/MM3 5.5 TH/MM3 Red Blood Count 3.26 MIL/MM3 2.99 MIL/MM3 Hemoglobin 9.6 GM/DL 8.8 GM/DL Hematocrit 29.2 % 26.5 % Mean Corpuscular Volume 89.5 FL 88.7 FL Mean Corpuscular Hemoglobin 29.5 PG 29.5 PG Mean Corpuscular Hemoglobin 32.9 % 33.3 % Concent Red Cell Distribution Width 17.7 % 17.5 % Platelet Count 125 TH/MM3 126 TH/MM3 Mean Platelet Volume 9.4 FL 9.8 FL Prothrombin Time 12.0 SEC Prothromb Time International 1.1 RATIO Ratio Activated Partial 25.4 SEC 45.5 SEC 55.2 SEC Thromboplast Time Neutrophils (%) (Auto) 80.4 % Lymphocytes (%) (Auto) 6.6 % Monocytes (%) (Auto) 3.6 % Eosinophils (%) (Auto) 8.8 % Basophils (%) (Auto) 0.6 % Neutrophils # (Auto) 4.4 TH/MM3 Lymphocytes # (Auto) 0.4 TH/MM3 Monocytes # (Auto) 0.2 TH/MM3 Eosinophils # (Auto) 0.5 TH/MM3 Basophils # (Auto) 0.0 TH/MM3 CBC Comment DIFF FINAL Differential Comment Sodium Level 139 MEQ/L Potassium Level 3.2 MEQ/L Chloride Level 99 MEQ/L Carbon Dioxide Level 27.0 MEQ/L Anion Gap 13 MEQ/L Blood Urea Nitrogen 69 MG/DL Creatinine 4.78 MG/DL Estimat Glomerular Filtration 12 ML/MIN Rate Random Glucose 126 MG/DL Calcium Level 7.6 MG/DL Total Bilirubin 0.6 MG/DL Aspartate Amino Transf 16 U/L (AST/SGOT) Alanine Aminotransferase 30 U/L (ALT/SGPT) Alkaline Phosphatase 66 U/L Total Protein 5.6 GM/DL Albumin 2.2 GM/DL Culture Results Microbiology Date/Time Procedure Status Source Growth 02/05/17 06:15 Stool Occult Blood (TONY) - Final Complete Stool Stool HEMOCCULT POSITIVE Imaging Studies Last 24 hours Impressions Chest X-Ray 02/05/17 0600 Signed Impressions: Service Date/Time: Sunday, February 05, 2017 02:59 - CONCLUSION: Stable pulmonary vascular congestion right worse the left. Tracheostomy tube in good position. Heart remains enlarged Orlin Mascorro MD Administered Medications Medications (Trade) Dose Ordered Sig/Claire Route PRN Reason Start Time Stop Time Status Last Admin Dose Admin Docusate Sodium (Colace Liq) 100 mg Q12HR PO 01/06/17 21:00 02/05/17 08:43 Sodium Chloride (NS Flush) 2 ml UNSCH PRN IV FLUSH FLUSH AFTER USING IV ACCESS 01/06/17 13:15 02/02/17 07:30 Sodium Chloride (NS Flush) 2 ml BID IV FLUSH 01/06/17 21:00 02/05/17 08:44 Chlorhexidine Gluconate (Chlorhexidine 2% Cloth) Taper DAILY@04 TOP 01/07/17 04:00 01/03/18 03:59 02/01/17 04:00 Dextrose (D50w (Vial) Inj) 25 ml UNSCH PRN IV PUSH HYPOGLYCEMIA-SEE COMMENTS 01/09/17 07:15 01/21/17 19:15 Insulin Aspart (NovoLOG SUPPLEMENTAL SCALE) 1 Q6HR SQ 01/10/17 06:00 02/01/17 18:00 Bisacodyl (Dulcolax Supp) 10 mg DAILY PRN RECTAL CONSTIPATION 01/10/17 09:15 Hold 01/10/17 09:56 Sennosides (Senna Liq) 8.8 mg BID PO 01/16/17 09:00 02/05/17 08:43 Glycerin (Glycerin Adult Supp) 2 gm BID PRN RECTAL CONSTIPATION 01/17/17 06:45 01/17/17 14:30 Sodium Chloride (NS Flush) DAILY IVF 01/17/17 12:30 02/04/17 07:39 Artificial Tears (Tears Naturale Opth Soln) 1 drop Q8HR EACH EYE 01/17/17 22:00 02/05/17 05:18 Chlorhexidine Gluconate 15 ml 15 ml BID@08,20 MT 01/17/17 20:00 02/05/17 08:44 Midazolam HCl 100 ml @ 0 mls/hr TITRATE IV 01/17/17 16:45 01/25/17 00:18 Fentanyl Citrate (fentaNYL DRIP) 250 ml @ 0 mls/hr TITRATE IV 01/17/17 16:45 01/29/17 05:32 Metoclopramide HCl (Reglan Inj) 5 mg Q8HR IV PUSH 01/18/17 06:45 02/05/17 05:18 Calcium Acetate (Phoslo) 667 mg TID PO 01/19/17 09:00 02/05/17 08:42 Lansoprazole 30 mg 30 mg DAILY NG 01/19/17 09:00 02/05/17 08:42 Sodium Chloride 1,000 ml @ 0 mls/hr Q0M PRN IV For Prime & Rinse Back 01/19/17 08:06 02/05/17 08:31 Sodium Chloride (NS 1000 ml Inj) 1,000 ml @ 0 mls/hr Q0M PRN IV WITH DIALYSIS 01/19/17 08:06 01/27/17 09:24 Mannitol (Mannitol Inj) 12.5 gm UNSCH PRN IV WITH DIALYSIS 01/19/17 08:15 01/26/17 15:26 Albumin Human (Albumin 25% Inj) 25 gm UNSCH PRN IV WITH DIALYSIS 01/19/17 08:15 02/05/17 09:56 Sodium Chloride (NS Flush) 5 ml UNSCH PRN IV FLUSH WITH DIALYSIS 01/19/17 08:15 01/27/17 09:22 Gentamicin Sulfate (Gentamicin (Dialysis) Inj) 20 mg UNSCH PRN IV WITH DIALYSIS 01/19/17 08:15 02/05/17 08:32 Acetaminophen (Tylenol) 650 mg UNSCH PRN PO for headach, pain, temp > 101F 01/19/17 08:15 02/05/17 00:02 Epoetin Rizwan (Epogen Inj) 4,000 units UNSCH PRN IV WITH DIALYSIS 01/19/17 08:15 02/05/17 08:32 Labetalol HCl (Trandate Inj) 10 mg Q1HR PRN IV PUSH SBP>160, DBP>90, HR>65 01/24/17 19:15 01/24/17 19:28 Hydralazine HCl 10 mg 10 mg Q1HR PRN IV PUSH SBP>160, DBP>90 01/24/17 19:15 01/29/17 09:33 Diltiazem HCl/ Sodium Chloride (Cardizem Inj/NS Inj) 125 ml @ 0 mls/hr TITRATE IV 01/29/17 08:45 02/05/17 08:59 Hyoscyamine Sulfate (Levsin) 0.25 mg Q4H PRN PO secretions 01/29/17 11:00 01/29/17 12:07 Nystatin (Mycostatin Powder) 1 applic Q12HR PRN TOPICAL rash 01/29/17 11:00 02/01/17 12:47 Amiodarone HCl (Cordarone) 200 mg Q12HR PO 01/31/17 09:00 02/05/17 08:42 Lactulose (Lactulose Liq) 30 ml DAILY PO 01/31/17 09:00 02/05/17 08:43 Heparin Sodium (Porcine) UNSCH PRN .XX WITH DIALYSIS 01/31/17 10:45 02/05/17 08:32 Piperacillin Sod/ Tazobactam Sod (Zosyn 2.25 Gm Premix) 50 ml @ 100 mls/hr Q8H IV 02/01/17 21:00 02/05/17 05:18 Carvedilol (Coreg) 25 mg Q12HR PO 02/03/17 21:00 02/05/17 08:43 Digoxin (Lanoxin Liq) 0.125 mg DAILY PO 02/03/17 10:00 02/05/17 08:43 Fentanyl Citrate 50 mcg 50 mcg Q2HR PRN IV PUSH pain 1-10 02/03/17 10:00 02/03/17 14:45 Heparin Sodium/ Dextrose (Heparin-D5W Inj) 250 ml @ 0 mls/hr TITRATE IV 02/04/17 13:00 02/05/17 06:29 Prednisone (Deltasone) 15 mg DAILY PO 02/05/17 09:00 02/05/17 08:43 Objective Remarks GENERAL: Elderly male, supine in bed SKIN: Warm and dry. hematoma swelling improving, right neck. HEAD: Normocephalic. EYES: No injection or drainage. NECK: Tracheostomy midline. CARDIOVASCULAR: +S1/S2 RESPIRATORY: scattered rhonchi. on mechanical ventilation. GASTROINTESTINAL: Abdomen soft, mildly distended. receiving TF via G-tube. EXTREMITIES: No cyanosis. NEUROLOGICAL: awake and alert. tracks with eyes. follows commands. Assessment/Plan Problem List: (1) Thrombosis of left atrium without antecedent myocardial infarction Status: Acute Plan: -- on heparin gtt Assessment 71y/o male admitted in afib w/RVR. 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 --hematoma from central line placement in the right neck Plan 1. continue heparin gtt 2. monitor for bleeding 3. monitor CBC Attending Statement The exam, history, and the medical decision-making described in the above note were completed with the assistance of the mid-level provider. I reviewed and agree with the findings presented. I attest that I had a [id number] encounter with the patient on the same day, and personally performed and documented my assessment and findings in the medical record. Pt seen and examined. Tracheostomy in place. No overt bleeding. Tolerating UFH, platelet count recovery. R neck hematoma resolving. Afib on diltiazem. Hgb stable 8.5, platelet count plateau 126- still mildly thrombocytopenic. Consider change to Coumadin. Priya Fraga Feb 05, 2017 10:46 Meghan Torres MD Feb 05, 2017 17:30
--- NOTE | 2017-02-05 10:48 | HHI.NPPN ---
Subjective General Problems: Anemia, Edema, Heart Disease Renal Failure: Acute History of Present Illness 71-year-old the white male the who is transferred from [facility] to [facility] due to atrial fibrillation with fast ventricular response, he was in the heart catheterization lab and became unstable has to intubated the patient has chronic kidney disease, Cardiomyopathy ejection fraction of only 15% and has severe dilated cardiomyopathy with the clot in left atrium he is on heparin drip and currently on ventilator. Additional Remarks He appears to follow some commands. Objective Data Data 02/04/17 02/05/17 19:00 07:00 Intake Total 397 ml 1343 ml Output Total 4295 ml 290 ml Balance -3898 ml 1053 ml IV Total 104 ml 555 ml Tube Feeding 173 ml 668 ml Other 120 ml 120 ml Output Urine Total 45 ml 90 ml Stool Total 250 ml 200 ml Hemodialysis 4000 ml Vital Signs Date Time Temp Pulse Resp B/P Pulse Ox O2 Delivery O2 Flow Rate FiO2 02/05/17 10:00 79 02/05/17 08:00 87 02/05/17 08:00 50 02/05/17 08:00 99.9 87 23 167/84 95 02/05/17 07:30 96 40 02/05/17 07:30 40 02/05/17 06:00 80 02/05/17 04:00 50 02/05/17 04:00 129 02/05/17 04:00 98.8 129 20 185/91 96 02/05/17 03:27 97 45 02/05/17 02:00 80 02/05/17 00:51 98 45 02/05/17 00:00 50 02/05/17 00:00 99.8 82 22 143/78 93 02/05/17 00:00 82 02/04/17 22:00 81 02/04/17 20:21 92 50 02/04/17 20:00 50 02/04/17 20:00 99.9 135 30 169/106 92 02/04/17 20:00 135 02/04/17 18:00 136 02/04/17 17:16 93 50 02/04/17 16:00 96 02/04/17 16:00 99.5 96 25 123/59 93 02/04/17 16:00 50 02/04/17 14:00 106 02/04/17 13:10 50 02/04/17 12:00 50 02/04/17 12:00 125 02/04/17 12:00 98.7 125 29 156/89 95 Arterial Line 02/04/17 10:55 94 50 -: 02/05/17 0327 02/05/17 0327 Microbiology 02/05/17 Stool Occult Blood (TONY) - Final, Complete HEMOCCULT POSITIVE Physical Exam General Appearance: Well Developed Eyes Eye Exam: Pupils Equal Pulmonary Resp Exam: Rhonchi, Decreased Bases, Diminished Breath Sounds Cardiology CV Exam: Arrhythmia Gastrointestinal/Abdomen GI Exam: Soft, Non-Tender, Distended Extremeties Extremities Exam: Moderate Edema, Pitting Edema, Dependent Edema Neurologic Neuro Exam: Sedated Assessment/Plan Problem List: (1) Acute renal failure Plan: he has hemodialysis yesterday and today seen during dialysis 4 L UF of 4 K bath Severe cardiomyopathy prognosis is guarded. 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 Improved. Problem Qualifiers (1) CHF (congestive heart failure): Christa Hahn MD Feb 05, 2017 10:48
--- NOTE | 2017-02-05 11:50 | HHI.PR ---
Subjective Subjective Notes Eyes open on MV via trach Receiving HD Objective Vitals/I&O Vital Signs Date Time Temp Pulse Resp B/P Pulse Ox O2 Delivery O2 Flow Rate FiO2 02/05/17 11:26 96 40 02/05/17 10:00 79 02/05/17 08:00 99.9 23 167/84 Labs Laboratory Tests Test 02/04/17 02/04/17 02/05/17 13:38 22:34 03:27 White Blood Count 4.8 5.5 Red Blood Count 3.26 2.99 Hemoglobin 9.6 8.8 Hematocrit 29.2 26.5 Mean Corpuscular Volume 89.5 88.7 Mean Corpuscular Hemoglobin 29.5 29.5 Mean Corpuscular Hemoglobin 32.9 33.3 Concent Red Cell Distribution Width 17.7 17.5 Platelet Count 125 126 Mean Platelet Volume 9.4 9.8 Prothrombin Time 12.0 Prothromb Time International 1.1 Ratio Activated Partial 25.4 45.5 55.2 Thromboplast Time Neutrophils (%) (Auto) 80.4 Lymphocytes (%) (Auto) 6.6 Monocytes (%) (Auto) 3.6 Eosinophils (%) (Auto) 8.8 Basophils (%) (Auto) 0.6 Neutrophils # (Auto) 4.4 Lymphocytes # (Auto) 0.4 Monocytes # (Auto) 0.2 Eosinophils # (Auto) 0.5 Basophils # (Auto) 0.0 CBC Comment DIFF FINAL Differential Comment Sodium Level 139 Potassium Level 3.2 Chloride Level 99 Carbon Dioxide Level 27.0 Anion Gap 13 Blood Urea Nitrogen 69 Creatinine 4.78 Estimat Glomerular Filtration 12 Rate Random Glucose 126 Calcium Level 7.6 Total Bilirubin 0.6 Aspartate Amino Transf 16 (AST/SGOT) Alanine Aminotransferase 30 (ALT/SGPT) Alkaline Phosphatase 66 Total Protein 5.6 Albumin 2.2 Date/Time Procedure Status Source Growth 02/05/17 06:15 Stool Occult Blood (TONY) - Final Complete Stool Stool HEMOCCULT POSITIVE Cardiovascular: Regular Lungs: Clear Abdomen: Non-distended, Non-tender, Other Extremities: No edema Narrative Exam Trach in place without any issues A/P Assessment and Plan 71 year old male POD3 trach placement for VDRF -Continue routine trach care -Vent per [facility] -GS will sign off; please call with ??s Attending Note - Dr. Bhakta Trach site clean and without bleeding The exam, history, and the medical decision-making described in the above note were completed with the assistance of the mid-level provider. I reviewed and agree with the findings presented. I attest that I had a [id number] encounter with the patient on the same day, and personally performed and documented my assessment and findings in the medical record. Cindy Coto Feb 05, 2017 11:50 Ar Bhakta MD Feb 10, 2017 14:54
[2017-02-05 16:27] LABS: HEMATOCRIT 26.7 % (39.0-51.0); REVIEW FLAG FINAL
[2017-02-05] MEDS ORDERED: METOPROLOL TARTRATE 5 MG/5 ML VIAL IV PUSH ONE (17:00)
--- NOTE | 2017-02-05 19:17 | HHI.PR ---
Subjective Remarks remains .Lethargic but responds weakly and opens eyes. Remains on Vent support ,now on PEEP 8. FIO2 at 50%. Had dialysis with removal of 4 L. tolerates feeds . Moved hands and fingers Objective Vital Signs Date Time Temp Pulse Resp B/P Pulse Ox O2 Delivery O2 Flow Rate FiO2 02/05/17 18:00 131 02/05/17 16:00 99.5 131 23 150/86 94 02/05/17 16:00 45 02/05/17 16:00 131 02/05/17 15:09 93 45 02/05/17 14:00 140 02/05/17 12:00 100.4 87 24 144/80 93 02/05/17 12:00 50 02/05/17 12:00 87 02/05/17 11:26 96 40 02/05/17 10:00 79 02/05/17 08:00 87 02/05/17 08:00 50 02/05/17 08:00 99.9 87 23 167/84 95 02/05/17 07:30 96 40 02/05/17 07:30 40 02/05/17 06:00 80 02/05/17 04:00 50 02/05/17 04:00 129 02/05/17 04:00 98.8 129 20 185/91 96 02/05/17 03:27 97 45 02/05/17 02:00 80 02/05/17 00:51 98 45 02/05/17 00:00 50 02/05/17 00:00 99.8 82 22 143/78 93 02/05/17 00:00 82 02/04/17 22:00 81 02/04/17 20:21 92 50 02/04/17 20:00 50 02/04/17 20:00 99.9 135 30 169/106 92 02/04/17 20:00 135 I/O 02/04/17 02/04/17 02/04/17 02/05/17 02/05/17 02/05/17 07:00 15:00 23:00 07:00 15:00 23:00 Intake Total 373 ml 397 ml 748 ml 595 ml 812 ml Output Total 390 ml 4295 ml 150 ml 140 ml 4150 ml Balance -17 ml -3898 ml 598 ml 455 ml -3338 ml IV Total 105 ml 104 ml 328 ml 227 ml 273 ml Tube Feeding 208 ml 173 ml 360 ml 308 ml 419 ml Other 60 ml 120 ml 60 ml 60 ml 120 ml Output Urine Total 40 ml 45 ml 50 ml 40 ml 50 ml Stool Total 350 ml 250 ml 100 ml 100 ml 100 ml Hemodialysis 4000 ml 4000 ml Result Diagram: 02/05/17 1511 02/05/17 0327 Objective Remarks GENERAL: This is an obese, elderly man who is lethargic HEENT: Head is normocephalic. Pupils are reactive. NECK Neck supple. Trachea is midline.Trach tube is in. Neck Hematoma + CHEST: Occ crackles at both lung bases. .Decreased breath sounds at bases HEART: The heart sounds are irregular S1-S2. No murmur. ABDOMEN: Soft. Obese without masses. No organomegaly. EXTREMITIES: 1 + edema. Decreased peripheral pulses. SKIN: Dry and cool.Neuro :responds and moves arms a little. Assessment and Plan Assessment and Plan IMPRESSION 1. Hypoxic respiratory failure. 2. Left lower lobe atelectasis and possible pneumonia with aspiration. 3. Left pleural effusion resolved. 4. Cardiomyopathy and congestive heart failure. 5. Obstructive sleep apnea. 6. Diabetes mellitus. 7. Atrial fibrillation. 8. Nasopharyngeal bleed Plan : 1. PSV /CPAP 8/5 CM FIO2 45 % today 2. CXR in am 3. Antibiotics per ID. 4. BMP in am. 5. Nebs qid , duoneb. 6. Trach suction and Lavage 7. Tube feeds at 60 CC 8. Prednisone 15 mg daily 9. Dialysis per renal. 10. PT evaluation and Up in chair Julius Burch MD Feb 05, 2017 19:17
[2017-02-05] MEDS: fentaNYL CITRATE 250 MCG/5 ML AMP IV PUSH PRN (21:29)
[2017-02-06] VITALS (19 sets, daily range): BP systolic 141–169; BP diastolic 72–102; PULSE 71–129; RESP 18–25; TEMP 98.4–99.7; O2SAT 93–98
[2017-02-06] MEDS: ARTIFICIAL TEARS OPTH SOLN 15 ML BTL EACH EYE SCH ×4 (00:09→22:13)
[2017-02-06] MEDS: CHLORHEXIDINE GLUCONATE 2 % 1 PACK (2 CLOTHS) TOP SCH (03:34)
[2017-02-06] MEDS: fentaNYL CITRATE 250 MCG/5 ML AMP IV PUSH PRN (03:35)
[2017-02-06] MEDS: RESP: ALBUTEROL 2.5 MG/IPRATROPIUM 0.5 MG NEB (SCH) NEB ×4 (03:54→20:10)
[2017-02-06] MEDS: INSULIN ASPART SUPPLEMENTAL SCALE SQ SCH ×4 (05:32→17:22)
[2017-02-06] MEDS: PIPERACIL-TAZO 2.25 GM PREMIX 50 ML IV SCH ×3 (05:32→20:42)
[2017-02-06] MEDS: METOCLOPRAMIDE HCL 10 MG/2 ML VIAL IV PUSH SCH ×3 (05:57→22:13)
[2017-02-06] MEDS: DILTIAZEM INJ 125 MG in SODIUM CHLORIDE 0.9% INJ 100 ML IV SCH ×3 (06:21→20:52)
[2017-02-06] MEDS: CALCIUM ACETATE 667 MG CAP PO SCH ×3 (08:17→17:28)
[2017-02-06] MEDS: LANSOPRAZOLE SOLUTAB 30 MG TAB NG SCH (08:17)
[2017-02-06] MEDS: CARVEDILOL 12.5 MG TAB PO SCH ×2 (08:17→20:41)
[2017-02-06] MEDS: AMIODARONE 200 MG TAB PO SCH ×2 (08:17→20:41)
[2017-02-06] MEDS: LACTULOSE SYRUP 20 GM/30 ML CUP PO SCH (08:17)
[2017-02-06] MEDS: predniSONE 10 MG TAB PO SCH (08:17)
[2017-02-06] MEDS: DOCUSATE SODIUM 100 MG/10 ML UDC PO SCH ×2 (08:17→20:41)
[2017-02-06] MEDS: SODIUM CHLORIDE 0.9% FLUSH 10 ML FLUSH IVF SCH (08:18)
[2017-02-06] MEDS: SODIUM CHLORIDE 0.9% FLUSH 10 ML FLUSH IV FLUSH SCH ×2 (08:18→20:41)
[2017-02-06] MEDS: SENNOSIDES SYRUP 8.8 MG/5 ML CUP PO SCH ×2 (08:21→20:41)
[2017-02-06] MEDS: DIGOXIN SOLUTION 0.125 MG/2.5 ML CUP PO SCH ×2 (08:22→08:45)
[2017-02-06] MEDS: CHLORHEXIDINE 0.12% (ORAL KIT) 15 ML CUP MT SCH ×2 (08:22→20:41)
[2017-02-06 08:40] LABS: AUTOMATED NEUTROPHIL # 5.7 TH/MM3 (1.8-7.7); BASOPHIL % 0.5 % (0.0-2.0); EOSINOPHIL # 0.4 TH/MM3 (0-0.4); EOSINOPHIL % 6.1 % (0.0-4.0); HEMATOCRIT 25.8 % (39.0-51.0); LYMPH % 7.2 % (9.0-44.0); LYMPHOCYTE # 0.5 TH/MM3 (1.0-4.8); MEAN CELL VOLUME 88.1 FL (80.0-100.0); MEAN CORPUSCULAR HEMOGLOBIN 30.1 PG (27.0-34.0); MEAN CORPUSCULAR HGB CONC 34.1 % (32.0-36.0); MONO % 5.5 % (0.0-8.0); NEUT % 80.7 % (16.0-70.0); PLATELET COUNT 137 TH/MM3 (150-450); RED BLOOD COUNT 2.93 MIL/MM3 (4.50-5.90); RED CELL DISTRIBUTION WIDTH 17.4 % (11.6-17.2); WHITE BLOOD COUNT 7.1 TH/MM3 (4.0-11.0)
[2017-02-06 08:45] LABS: HEMO FLAGS AUTO DIFF
[2017-02-06 08:49] LABS: APTT (PATIENT) 52.7 SEC (24.3-30.1)
[2017-02-06 09:13] LABS: BICARBONATE 27.2 MEQ/L (21.0-32.0); POTASSIUM 3.2 MEQ/L (3.5-5.1)
[2017-02-06 09:35] LABS: BANDS 10 % (0-6); EOSINOPHILS 2 % (0-4); MYELOCYTES 3 % (0-0); NEUTROPHIL # MANUAL DIFF 6.6 TH/MM3 (1.8-7.7); POLYS (SEG NEUTROPHILS) 80 % (16-70); TOXIC GRANULATION 3+ (NORMAL); WBC DIFF SAMPLE 100
[2017-02-06 09:36] LABS: PLATELET ESTIMATE SMEAR LOW (NORMAL); PLATELET MORPHOLOGY ENLARGED (NORMAL)
[2017-02-06 09:39] LABS: SCAN/DIFF FINAL DIFF MANUAL
--- NOTE | 2017-02-06 10:18 | HHI.CCPN ---
Subjective Remarks/Hospital Course This is a 71-year-old gentleman that presented to [facility] secondary to dyspnea and atrial fibrillation with RVR. The patient has a medical history significant for obesity and hypertension. During his hospitalization at [facility], the patient underwent an echocardiogram which showed severe systolic dysfunction with an ejection fraction of 1015 % the patient then underwent a cardiac catheterization showing significance with left circumflex 90%. The patient underwent multiple attempts of unsuccessful synchronized cardioversion. The patient also underwent medical management with beta blockers, and calcium channel blockers that were also unsuccessful. The patient was transferred to [facility] for cardiac ablation with Dr. Jimenez. The patient was scheduled for cardiac ablation, the procedure was canceled. The patient required emergent intubation and required ventilator management a VLADIMIR was performed showing a clot in the left atrial appendage. The patient was placed on IV Cardizem, and an amiodarone infusion. Critical Care medicine was consulted for management. 01/06: Tmax 97.4. The patient remained on elevated vent settings with FiO2 of 1.0 overnight, PEEP requirements were increased to 8, to maintain a PaO2 of greater than [address] scan of the chest was obtained which noted bilateral effusions small, basilar consolidations right worse than the left, and a loculated area representing a possible pneumonia process, empyema, as well as aspiration or just loculated fluid as well as a small pericardial effusion. The patient continues on Cardizem and amiodarone infusions with a heart rate overnight 80s -115. The patient's vasopressor requirements of phenylephrine diminished to 20 mcgs. 01/07: Tmax 99.2. Yesterday the central line was placed for vasoactive medications and CVP monitoring, small hematoma noted near the right IJ area soft no compression of major vessels, with resolution of bleeding in that area. Phenylephrine was discontinued yesterday. The patient heart rate remains today [id number]. Cardizem infusion has been discontinued in the setting of EF of 10-15%. Esmolol infusion to be initiated this a.m.. Coumadin was initiated last night now placed on hold due to patient bleeding from nasopharynx and oropharynx. INR currently 1.2. Plan for CT thorax tomorrow, with possible IR intervention versus CVT consultation for possible empyema the patient will remain on heparin infusion, and transition onto Coumadin after any potential procedures to be initiated. Chest x-ray slightly improved FiO2 decreasing now 70%. Sedation vacation yesterday revealed GCS 11 T, patient alert responsive following commands. With initiation of antibiotics, leukocytosis resolved. ID consulted Dr. Gage. Blood cultures are pending. 01/08: Patient's heart rate 110-[address] scan of the chest imaging revealed fluid. Plan for thoracentesis and and studies of pleural fluid , this afternoon. The patient remains on amiodarone and heparin infusions, per cardiology. Heparin held, for thoracentesis this afternoon, and then will be resumed. The patient was maintained on CPAP trial for approximately one hour yesterday. During sedation vacation patient was alert following commands recognizing family. Plan to resume CPAP trials this afternoon post thoracentesis. 01/09: The patient underwent CT-guided thoracentesis yesterday , on the right side noted 400 cc of fluid was removed , with specimens ordered to be sent for evaluation .This morning chest x-ray performed showing almost complete opacification of the left lung. FiO2 requirements increase patient on FiO2 of 80%, O2 sat 94%. Left chest ultrasound obtained revealing no fluid. Consent obtained BAL performed, revealing emanating from the nearest previously ( patient was noted to have epistaxis with initiation of heparin on 01/06). Blood clots noted in left lung upon visualization with bronchoscopy, saline lavage applied, minimal blood clots removed. The patient was initiated on Mucomyst 10% , and pulmonology was consulted. Dr. Tasia Lama following. The patient shows no signs or evidence of bleeding actively, plan to consult ENT if signs of active bleeding become evident. Hemoglobin remains stable.The patient converted into sinus rhythm is today afternoon. Cardiology management of medications, IV amiodarone discontinued this afternoon. 01/10: Tmax 99.0. Chest x-ray shows slight improvement of left lung today. Plan for repeat bronchoscopy per Dr. Burch this a.m, and the patient continues on Mucomyst. The patient's cardiac rhythm reverted to A. fib last evening, amiodarone IV infusion reinstituted per Dr. Jimenez. 01/11: TMax 100.0. Much improved chest x-ray this morning. The patient continues in A. fib with a rate of 120, he continues on amiodarone, heparin infusion per cardiology. No evidence of active bleeding. 5/12 Patient Remains sedated with Diprivan, intubated. T:99.9. On Neosyn 15 mics , heparin and Amio drips. In Afib with RRV. Patient s/p repeat bronch with BAL yesterday by Dr. Burch and ETT replacement by Dr. Sanchez. On PC/AC with PEEP:14 , FIO2 100%. 01/13: TMax 100.2. Last night the nurse reported that the patient had a small amount of epistaxis, and blood in the oropharynx noted. The area continued to bleed during the night. ENT has been consulted. Heparin has been placed on hold , ASA has been discontinued in the setting of acute renal failure. The patient continues on amiodarone infusion , heart rate 120's. Neosynephrine has been discontinued, and Levophed instituted. Creatinine noted to be 4.5. As per report , states patient does not want dialysis. The patient continues on elevated PEEP of 14. 5/14: Heparin was discontinued yesterday in the setting of continued bleeding in the nasal/ oropharyngeal region. ENT was consulted and nasal packing was applied. During the night the patient still had small noted amount of bleeding from the oropharyngeal area plan today for oropharyngeal packing. Hgb 9, will transfuse .The patient was placed on norepinephrine for currently at 1-2 mcgs per minute. PEEP has been decreased to 12, with adequate oxygenation a PaO2 of 71. 5/15: Tmax 99.0. The patient continues to be anemic and thrombocytopenic, contributory factors being uremia. The patient's /family decided to pursue hemodialysis at this point. The patient received 1 unit of packed red blood cells yesterday. The patient was initiated on dialysis yesterday afternoon, with approximately 3 L removed. Nasal gauze packing removed and placement of nasal balloons by ENT yesterday. Oral gauze packing to be removed today. The patient received 2 separate doses of digoxin, A. fib heart rate ranging 80- < 120. The patient continues to have high ventilatory requirements, FiO2 was increased throughout the night to currently 80%, to maintain O2 sat greater than 92%. 01/16: FiO2 at 85%. Large clots removed from oropharynx overnight. Transfused 2 units PRBCs yesterday. No bowel movement. Tolerating tube feeds at 40 cc now with Nepro 01/17: Maximum 100.6. CURRENT TEMPERATURE 98.1. Central line pulled out yesterday. Flolan initiated yesterday and FiO2 down to 65%. Tolerating tube feeds. No bowel movement. Arousable weakly follow commands yesterday 01/18: Tmax 99.8. Currently afebrile. Initially, hemoptysis with desaturation requiring bronchoscopy. See bronchoscopy note. Roto-Rest bed ordered. FiO2 from 100-70% currently. On Nimbex drip. No BM. Tolerating tube feeds. 01/19: Afebrile. FiO2 down to 40%. We will attempt a wean Flolan today. On Nimbex drip. Positive BM yesterday. Tolerating tube feeds. 01/20: FiO2 back to 100%. Flolan "fell off "overnight. Ventilator adjusted back to 100%. Flolan reinstituted. Chest x-ray and ABG pending. Tolerating tube feeds. Positive BM. Afebrile. 01/21: Intolerant of tube feeding. KUB pending. Afebrile. Bleeding from bilateral nares and Alanis overnight. Argatroban has been held. Positive BM. 01/22 Patient is sedated with Fentanyl , versed in addition he is on Nimbex. Receiving HD. TF on hold for high residuals. 01/23 Patient is on Roto prone bed sedated and intubated. s/p HD yesterday with removal 3L. On Nimbex, afebrile. 01/24 Patient remains sedated with Versed, Fentanyl and remains on Nimbex. On PC/ AC with PEEP: 10, FIO2 down 40%. For HD today. Afebrile. 01/25 Patient remains sedated and intubated . On PC/AC with PEEP: 10 and FIO2 50% . s/p HD yesterday with removal 4.5L. Afebrile. 01/26 Patient is sedated with Fentanyl off versed and Nimbex. s/p bronch yesterday by Dr. Burch. On PRVC/AC with PEEP: 10 and FIO2 down to 50% s/p HD yesterday with removal 1.5. For another HD session today. 01/27 Patient is sedated with Fentanyl and intubated, s/p HD yesterday with removal 4L. Afebrile. On PRVC/AC mode with PEEP; 10 and FIO2 45% 01/28 Patient remains sedated with Fentanyl and intubated. s/p HD yesterday with removal 3L. Placed on Amio drip yesterday for Afib with RVR, 01/29 No acute events overnight. Sedated with Fentanyl and intubated. Afebrile. On PRVC/AC with PEEP: 10 and FIO2 70% decreased to 60% 01/30 No events overnight. Sedated with Diprivan on Amio drip and Cardizem 5mg/ hr. s/p HD yesterday with removal 2L. Spiked fever yesterday with T 101.7 .On PRVC/AC with PEEP: 10, FIO2 65% 01/31: Afebrile. FiO2 at 65%. PEEP at 10. Heart rate between 70 and 130. Cardizem drip at 15 mg an hour. For CT head today. Copious amounts of oral secretions. Minimal via suctioning 02/01: Currently afebrile. Heart rate consistently in the 120s to 140s. Cardizem drip back up to 15 mg an hour. More awake and withdrawing right upper , bilateral lower extremities. Moving head side to side. 02/02: Remains intubated and sedated with 15 mcg/min of propofol. In Afib with RVR in HR 130/min. Give additional 15 mg IVx1 and increase drip to 20 mg per hour. Moves L UE spontaneously. PEg and OR trach planned for today 02/03: Patient is status post trach and PEG yesterday 02-17. Currently remains on propofol and Cardizem infusions. Off all pressors. Rate control is improved, but still 100-110. Will increase carvedilol and start digoxin for improved rate control. Chest x-ray shows evidence of fluid overload, patient remains oliguric 02/04: Currently off all sedation. Awake weakly follows commands. Chest x-ray shows bilateral effusion and pulmonary edema-we'll request additional hemodialysis today. A. fib rate controlled and remains on 20 mg per hour of Cardizem 02/05 No acute events overnight. Patient remains on ventilator via trach. On Heparin drip and Cardizem drip 15mg/hr, s/p HD yesterday with removal 4L. On no sedation. Afebrile. 02/06 Patient is on ventilator via trach. On Heparin and Cardizem drips 15mg/hr, Tmax 100.4. H/H stable, s/p HD yesterday with removal 4L. Objective Vital Signs Date Time Temp Pulse Resp B/P Pulse Ox O2 Delivery O2 Flow Rate FiO2 02/06/17 08:00 81 02/06/17 08:00 45 02/06/17 08:00 98.5 24 153/86 95 Intake and Output 02/05/17 02/05/17 02/06/17 08:00 16:00 00:00 Intake Total 595 ml 812 ml 759 ml Output Total 140 ml 4150 ml 80.0 ml Balance 455 ml -3338 ml 679.0 ml Result Diagram: 02/06/17 0812 02/06/1712 Other Results Laboratory Tests Test 02/05/17 02/06/17 15:11 08:12 Hemoglobin 8.5 GM/DL 8.8 GM/DL Hematocrit 26.7 % 25.8 % White Blood Count 7.1 TH/MM3 Red Blood Count 2.93 MIL/MM3 Mean Corpuscular Volume 88.1 FL Mean Corpuscular Hemoglobin 30.1 PG Mean Corpuscular Hemoglobin 34.1 % Concent Red Cell Distribution Width 17.4 % Platelet Count 137 TH/MM3 Mean Platelet Volume 9.3 FL Neutrophils (%) (Auto) 80.7 % Lymphocytes (%) (Auto) 7.2 % Monocytes (%) (Auto) 5.5 % Eosinophils (%) (Auto) 6.1 % Basophils (%) (Auto) 0.5 % Neutrophils # (Auto) 5.7 TH/MM3 Lymphocytes # (Auto) 0.5 TH/MM3 Monocytes # (Auto) 0.4 TH/MM3 Eosinophils # (Auto) 0.4 TH/MM3 Basophils # (Auto) 0.0 TH/MM3 CBC Comment AUTO DIFF Differential Total Cells 100 Counted Neutrophils % (Manual) 80 % Band Neutrophils % 10 % Lymphocytes % 2 % Monocytes % 3 % Eosinophils % 2 % Neutrophils # (Manual) 6.6 TH/MM3 Myelocytes 3 % Differential Comment FINAL DIFF MANUAL Toxic Granulation 3+ Platelet Estimate LOW Platelet Morphology Comment ENLARGED Basophilic Stippling FAINT Activated Partial 52.7 SEC Thromboplast Time Sodium Level 139 MEQ/L Potassium Level 3.2 MEQ/L Chloride Level 100 MEQ/L Carbon Dioxide Level 27.2 MEQ/L Anion Gap 12 MEQ/L Blood Urea Nitrogen 58 MG/DL Creatinine 4.36 MG/DL Estimat Glomerular Filtration 14 ML/MIN Rate Random Glucose 129 MG/DL Calcium Level 8.0 MG/DL Imaging Last Impressions Chest X-Ray 02/05/17599 Signed Impressions: Service Date/Time: Sunday, February 05, 2017 02:59 - CONCLUSION: Stable pulmonary vascular congestion right worse the left. Tracheostomy tube in good position. Heart remains enlarged Orlin Mascorro MD Head CT 01/31/17 0000 Signed Impressions: Service Date/Time: Tuesday, January 31, 2017 08:42 - CONCLUSION: 1. 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 Right basal ganglia lacunar infarct is age indeterminate. 2. Maurice sinusitis along with opacification of the middle ears and mastoid air cells bilaterally. Geovanny Lynch MD Abdomen X-Ray 01/21/17 0000 Signed Impressions: Service Date/Time: Saturday, January 21, 2017 08:41 - CONCLUSION: Nondiagnostic study. Gurvinder Collier MD Renal Ultrasound 01/09/17 0000 Signed Impressions: Service Date/Time: Monday, January 09, 2017 13:56 - CONCLUSION: 1. Right kidney is sonographically normal. 2. Benign-appearing 2.4 x 1.5 cm cortical cyst in the midpole of the left kidney. 3. Subcentimeter echogenic, non-shadowing foci in the midpole of the left kidney would be unusual for stones and may represent ectopic hilar fat. No hydronephrosis. 4. Urinary bladder is decompressed with a Alanis catheter. Douglas Ward MD Chest Ultrasound 01/09/17 0000 Signed Impressions: Service Date/Time: Monday, January 09, 2017 08:18 - CONCLUSION: No left-sided pleural effusion. The abnormality in the left chest on chest radiograph is likely related to mucous plugging. When patient had a CT scan yesterday the left lung was well aerated. Edgardo Mayorga MD Chest CT 01/08/17 0600 Signed Impressions: Service Date/Time: Sunday, January 08, 2017 08:46 - CONCLUSION: Massive cardiomegaly with panchamber enlargement extensive coronary calcifications. Stable trace pericardial effusion. Increasing bibasilar consolidative changes with minimal bilateral pleural effusions.. Rhys G. Miles, MD FACR Thoracentesis 01/08/17 0000 Signed Impressions: Service Date/Time: Sunday, January 08, 2017 16:08 - CONCLUSION: Uncomplicated CT-guided thoracentesis on the right. The left sided thoracentesis was not performed as there was no significant left pleural fluid. The abnormality on most recent chest x-ray was secondary to mucous plugging and left sided atelectasis. Edgardo Mayorga MD Objective Remarks GENERAL: 71-year-old male, critically ill obese SKIN: Warm and dry. No rash. Right heel ulcer 2 x 2 centimeters and evolving stage 0 sacral decubitus ulcer HEAD: Atraumatic. Normocephalic. EYES: Pupils equal and round, 5mm and reactive to 4 mm. No scleral icterus. No injection or drainage. ENT: No active bleeding. Clear secretions from mouth with suctioning NECK: Trachea midline. Large right-sided evolving hematoma without tracheal shift. Evolving ecchymoses. trach without significant bleeding CARDIOVASCULAR: A. fib rate controlled. S1, S2 no S4 without murmur RESPIRATORY: Diminished breath sounds throughout especially in the bases bilaterally. Breath sounds equal bilaterally. GASTROINTESTINAL: Abdomen soft, obese non-tender, nondistended. No active bowel sounds MUSCULOSKELETAL: Extremities with 1+ peripheral edema. No obvious deformities. Posterior tibialis is palpable bilaterally. Right femoral Vas-Cath is clean dry and intact NEUROLOGICAL: Eyes are open tracks attempts to talk. Positive corneal reflex. Very weakly follows commands on all 4 extremities, Nods head Date of Insertion: January 05, 2017 Date of Insertion: January 17, 2017 Line: Central Venous Catheter Side: Left Location: Subclavian, Jugular A/P Assessment and Plan Neuro/Psych: Lacunar infarcts bilateral basal ganglia, left thalamus Acute metabolic encephalopathy Epistaxis Use PRN Ativan and fentanyl for agitation, vent synchrony Completed EEG 01/30 revealed no epileptiform activity. Severe encephalopathy. CT brain 01/31 revealed bilateral basal ganglia and left thalamic CVA. Right basal ganglia CVA indeterminate age Dr. Cole/neurology following 01/12 New onset epistaxis, heparin discontinued until 01/31 and restarted Epistaxis-ENT consulted-nasal balloons in situ maintain balloons until 01/20 per ENT recommendation. Removed 01/20 but resumed bleeding so replaced- 01/21, now off ENT has followed- Dr. Byrd. Respiratory: Acute hypoxic respiratory failure Left lung consolidation 2/2 previous event of epistaxis, clotted blood left lung -resolved Probable aspiration Multilobar [id number] Bilateral pleural effusions SONU Continue with vent support keep sat >90%. s/p OR trach by Dr. Bhakta 02/02 DuoNeb scheduled every 6 hours with albuterol every 2 hours as needed ICU vent bundle. Pulmonology following- Dr. Burch Pulm toilet, trach care, SBT trials as dennis Currently on prednisone 15mg daily 01/08-right CT-guided thoracentesis-400 cc removed s/p bronch . by- Dr. 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 No obvious source of bleeding. s/p bronch 01/[address] Burch. -minimal secretions. CV: A. fib with RVR Left atrial appendage thrombus Acute Systolic CHF Cardiomyopathy Hypertension Dyslipidemia Continue with Amio at 200 mg twice a day, Coreg 25 BID. Monitor HR and BP keep MAP>65mmHg On Cardizem drip 15mg/hr for rate control. Attempt wean to DC On digoxin 0.125 mg daily Dig level 1.1 02/04 01/13- ASA discontinued due to epistaxis. IV heparin held at midnight for procedures-resume today 01/05 VLADIMIR( [employer])-left atrial thrombus EF 15-20%. Systolic function reduced. Diffuse hyperkinesis. 12/26 [facility] severe systolic dysfunction EF 1015%, mitral valve mild to moderate regurg, LAE, tricuspid Valve-mild to moderate regurg, small pericardial effusion, 12/19 cardiac cath left circumflex 90% occlusion VLADIMIR EF 15-20%. Management per Cardiology -Dr. Jimenez Renal: Acute on chronic kidney disease stage IV Nephrology following-Dr. Hahn Monitor renal function, I/O's, avoid nephrotoxins. VasCath placement Hemodialysis initiated 01/14. Will discuss with renal re PermeCath placement s/p HD 02/05 with removal 4L, FEN/GI: Morbid obesity Hyperphosphatemia s/p PEG 02/03. Tube feeds at goal (Nepro at 45ml/hr) Prevacid for GI prophylaxis Bowel Colace/Senokot twice a day. On Reglan 5 every 8 and erythromycin 200 every 8 for bowel motility/prokinetic PhosLo 667 3 times a day for hyperphosphatemia Heme: Normocytic anemia Thrombocytopenia Transfused 6 units PRBCs since admission Weakly positive HIT panel-CLIFFORD is negative. Repeat 01/30 with HIT negative Agree with stopping Heparin drip per hematology ( recurrent epistaxis and some bleeding from decub ulcers) . Monitor CBC, coags ID: Likely aspiration pneumonia 01/06 urine, sputum, blood cultures-NGTD 01/06-Legionella urine antigen negative 01/09 - bronchoscopy - yeast/ID to follow 01/12 - blood cultures 2 - no growth 01/20 - blood cultures 2 - staph Epi 09/06 bottles- likely contaminant 01/29 - blood cultures 2 -no growth 01/30 - sputum -immature growth 01/30 - urine -no growth Continue with abx (Zosyn) Given Vanco x1 dose 01/29-Dr. Jade Gage following, Check Sputum cx, UA with cx if indicated Endocrine: Close monitoring per ICU protocol-medium dose regimen -- SSI Accu-Cheks every 6 hours for glycemic control Prophylaxis: GI Prophylaxis Prevacid 30 mg at night DVT Prophylaxis -- SCDs, heparin drip Lines: Peripheral IV's. Right femoral HD catheter 01/19, Patient developed hematoma on right side of his neck from previous attempt of central line placement. Dispo: is Olena Muhammad [phone] Critical Care: The total critical care time was 30 minutes. Time to perform other separately billable procedures was not included in the critical care time. Ari Betancourt MD Feb 06, 2017 10:18
[2017-02-06] MEDS ORDERED: POTASSIUM CHLOR 20 MEQ PREMIX 100 ML IV ONE (11:00)
[2017-02-06 11:59] LABS: BACTERIA, URINE RARE /hpf; BLOOD, URINE MOD (NEG); GLUCOSE,URINE NEG (NEG); HYALINE CAST, URINE 1 /lpf (RARE); KETONE, URINE NEG (NEG); NITRITE,URINE NEG (NEG); SQUAMOUS EPITHELIAL CELL URINE <1 /hpf (0-5); URINE COLOR YELLOW (YELLW/STRAW)
[2017-02-06 12:06] LABS: COMMENT (UR) CATH-CULTURE IND; CULTURE IF INDICATED CATH CULTURE IND
--- NOTE | 2017-02-06 12:29 | HHI.PR ---
Subjective Remarks More alert and follows commands . Tries to talk. Remains on Vent support ,now on CPAP +7. FIO2 at 40%. Had dialysis . tolerates feeds . Objective Vital Signs Date Time Temp Pulse Resp B/P Pulse Ox O2 Delivery O2 Flow Rate FiO2 02/06/17 11:56 98 45 02/06/17 10:00 71 02/06/17 08:00 81 02/06/17 08:00 45 02/06/17 08:00 98.5 80 24 153/86 95 02/06/17 07:42 45 02/06/17 07:33 95 45 02/06/17 06:00 82 02/06/17 04:35 18 02/06/17 04:09 94 45 02/06/17 04:00 99.6 79 19 142/77 96 02/06/17 04:00 79 02/06/17 04:00 45 02/06/17 02:00 79 02/06/17 01:05 93 45 02/06/17 00:00 79 02/06/17 00:00 99.7 79 18 141/79 93 02/06/17 00:00 45 02/05/17 23:05 97 45 02/05/17 22:00 84 02/05/17 20:00 45 02/05/17 20:00 100.4 120 18 137/71 96 02/05/17 20:00 120 02/05/17 19:06 96 45 02/05/17 18:00 131 02/05/17 16:00 99.5 131 23 150/86 94 02/05/17 16:00 45 02/05/17 16:00 131 02/05/17 15:09 93 45 02/05/17 14:00 140 I/O 02/05/17 02/05/17 02/05/17 02/06/17 02/06/17 02/06/17 07:00 15:00 23:00 07:00 15:00 23:00 Intake Total 595 ml 812 ml 759 ml 723 ml Output Total 140 ml 4150 ml 80 ml 235 ml Balance 455 ml -3338 ml 679 ml 488 ml IV Total 227 ml 273 ml 367 ml 322 ml Tube Feeding 308 ml 419 ml 332 ml 341 ml Other 60 ml 120 ml 60 ml 60 ml Output Urine Total 40 ml 50 ml 30 ml 75 ml Stool Total 100 ml 100 ml 50 ml 160 ml Tube Feeding Residual Discard 0 ml 0 ml Hemodialysis 4000 ml Result Diagram: 02/06/1781102/06/17811 Objective Remarks GENERAL: This is an obese, elderly man who is lethargic HEENT: Head is normocephalic. Pupils are reactive. NECK Neck supple. Trachea is midline.Trach tube is in. Neck Hematoma + CHEST: Occ crackles at both lung bases. Occ Wheeze .Decreased breath sounds at bases HEART: The heart sounds are irregular S1-S2. No murmur. ABDOMEN: Soft. Obese without masses. No organomegaly. EXTREMITIES: 1 + edema. Decreased peripheral pulses. SKIN: Dry and cool.Neuro :responds and moves arms and feet a little. Assessment and Plan Assessment and Plan IMPRESSION 1. Hypoxic respiratory failure. 2. Left lower lobe atelectasis and possible pneumonia with aspiration. 3. Left pleural effusion resolved. 4. Cardiomyopathy and congestive heart failure. 5. Obstructive sleep apnea. 6. Diabetes mellitus. 7. Atrial fibrillation. 8. Nasopharyngeal bleed Plan : 1. PSV /CPAP 10 /5 CM FIO2 45 % as tolerated 2. Labs in am 3. Antibiotics per ID. 4. Up in chair as tolerated 5. Nebs qid , duoneb. 6. Trach suction and Lavage 7. Tube feeds at 60 CC 8. Prednisone 15 mg daily 9. Dialysis per renal. Julius Burch MD Feb 06, 2017 12:29
--- NOTE | 2017-02-06 12:32 | HHI.NPPN ---
Subjective General Problems: Anemia, Edema, Heart Disease Renal Failure: Acute History of Present Illness 71-year-old the white male the who is transferred from [facility] to [facility] due to atrial fibrillation with fast ventricular response, he was in the heart catheterization lab and became unstable has to intubated the patient has chronic kidney disease, Cardiomyopathy ejection fraction of only 15% and has severe dilated cardiomyopathy with the clot in left atrium he is on heparin drip and currently on ventilator. Additional Remarks He appears to follow some commands. Objective Data Data 02/05/17 02/06/17 19:00 07:00 Intake Total 812 ml 1482 ml Output Total 4150 ml 315.0 ml Balance -3338 ml 1167.0 ml IV Total 273 ml 689 ml Tube Feeding 419 ml 673 ml Other 120 ml 120 ml Output Urine Total 50 ml 105 ml Stool Total 100 ml 210 ml Tube Feeding Residual Discard 0 ml Hemodialysis 4000 ml Vital Signs Date Time Temp Pulse Resp B/P Pulse Ox O2 Delivery O2 Flow Rate FiO2 02/06/17 11:56 98 45 02/06/17 10:00 71 02/06/17 08:00 81 02/06/17 08:00 45 02/06/17 08:00 98.5 80 24 153/86 95 02/06/17 07:42 45 02/06/17 07:33 95 45 02/06/17 06:00 82 02/06/17 04:35 18 02/06/17 04:09 94 45 02/06/17 04:00 99.6 79 19 142/77 96 02/06/17 04:00 79 02/06/17 04:00 45 02/06/17 02:00 79 02/06/17 01:05 93 45 02/06/17 00:00 79 02/06/17 00:00 99.7 79 18 141/79 93 02/06/17 00:00 45 02/05/17 23:05 97 45 02/05/17 22:00 84 02/05/17 20:00 45 02/05/17 20:00 100.4 120 18 137/71 96 02/05/17 20:00 120 02/05/17 19:06 96 45 02/05/17 18:00 131 02/05/17 16:00 99.5 131 23 150/86 94 02/05/17 16:00 45 02/05/17 16:00 131 02/05/17 15:09 93 45 02/05/17 14:00 140 -: 02/06/17 0812 02/06/17 0812 Microbiology 02/06/17 Urine Culture, Received Pending Physical Exam General Appearance: Well Developed Eyes Eye Exam: Pupils Equal Pulmonary Resp Exam: Rhonchi, Decreased Bases, Diminished Breath Sounds Cardiology CV Exam: Arrhythmia Gastrointestinal/Abdomen GI Exam: Soft, Non-Tender, Distended Extremeties Extremities Exam: Moderate Edema, Pitting Edema, Dependent Edema Neurologic Neuro Exam: Sedated Assessment/Plan Problem List: (1) Acute renal failure Plan: he has hemodialysis yesterday 4 L UF of 4 K bath K low given KCL need PermCath Severe cardiomyopathy prognosis is guarded. 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 Improved. Problem Qualifiers (1) CHF (congestive heart failure): Christa Hahn MD Feb 06, 2017 12:32
--- NOTE | 2017-02-06 13:17 | PD.ONC.PN ---
Subjective Subjective Remarks Tmax 100.4 overnight. Patient with nosebleeds again today. Remains intubated. Also with bleeding from decubitus ulcer on buttocks. Some oozing around the mouth. Objective Data Date Time Temp Pulse Resp B/P Pulse Ox O2 Delivery O2 Flow Rate FiO2 02/06/17 12:00 91 02/06/17 12:00 98.8 91 23 144/72 95 02/06/17 12:00 45 02/06/17 11:56 98 45 02/06/17 10:00 71 02/06/17 08:00 81 02/06/17 08:00 45 02/06/17 08:00 98.5 80 24 153/86 95 02/06/17 07:42 45 02/06/17 07:33 95 45 02/06/17 06:00 82 02/06/17 04:35 18 02/06/17 04:09 94 45 02/06/17 04:00 99.6 79 19 142/77 96 02/06/17 04:00 79 02/06/17 04:00 45 02/06/17 02:00 79 02/06/17 01:05 93 45 02/06/17 00:00 79 02/06/17 00:00 99.7 79 18 141/79 93 02/06/17 00:00 45 02/05/17 23:05 97 45 02/05/17 22:00 84 02/05/17 20:00 45 02/05/17 20:00 100.4 120 18 137/71 96 02/05/17 20:00 120 02/05/17 19:06 96 45 02/05/17 18:00 131 02/05/17 16:00 99.5 131 23 150/86 94 02/05/17 16:00 45 02/05/17 16:00 131 02/05/17 15:09 93 45 02/05/17 14:00 140 02/06/17 02/06/17 02/06/17 07:00 15:00 23:00 Intake Total 723 ml Output Total 235 ml Balance 488 ml Result Diagram: 02/06/17 0812 02/06/17 0812 Laboratory Results Laboratory Tests Test 02/05/17 02/06/17 02/06/17 15:11 08:12 11:10 Hemoglobin 8.5 GM/DL 8.8 GM/DL Hematocrit 26.7 % 25.8 % White Blood Count 7.1 TH/MM3 Red Blood Count 2.93 MIL/MM3 Mean Corpuscular Volume 88.1 FL Mean Corpuscular Hemoglobin 30.1 PG Mean Corpuscular Hemoglobin 34.1 % Concent Red Cell Distribution Width 17.4 % Platelet Count 137 TH/MM3 Mean Platelet Volume 9.3 FL Neutrophils (%) (Auto) 80.7 % Lymphocytes (%) (Auto) 7.2 % Monocytes (%) (Auto) 5.5 % Eosinophils (%) (Auto) 6.1 % Basophils (%) (Auto) 0.5 % Neutrophils # (Auto) 5.7 TH/MM3 Lymphocytes # (Auto) 0.5 TH/MM3 Monocytes # (Auto) 0.4 TH/MM3 Eosinophils # (Auto) 0.4 TH/MM3 Basophils # (Auto) 0.0 TH/MM3 CBC Comment AUTO DIFF Differential Total Cells 100 Counted Neutrophils % (Manual) 80 % Band Neutrophils % 10 % Lymphocytes % 2 % Monocytes % 3 % Eosinophils % 2 % Neutrophils # (Manual) 6.6 TH/MM3 Myelocytes 3 % Differential Comment FINAL DIFF MANUAL Toxic Granulation 3+ Platelet Estimate LOW Platelet Morphology Comment ENLARGED Basophilic Stippling FAINT Activated Partial 52.7 SEC Thromboplast Time Sodium Level 139 MEQ/L Potassium Level 3.2 MEQ/L Chloride Level 100 MEQ/L Carbon Dioxide Level 27.2 MEQ/L Anion Gap 12 MEQ/L Blood Urea Nitrogen 58 MG/DL Creatinine 4.36 MG/DL Estimat Glomerular Filtration 14 ML/MIN Rate Random Glucose 129 MG/DL Calcium Level 8.0 MG/DL Urine Color YELLOW Urine Turbidity HAZY Urine pH 7.0 Urine Specific Lando 1.013 Urine Protein 100 mg/dL Urine Glucose (UA) NEG mg/dL Urine Ketones NEG mg/dL Urine Occult Blood MOD Urine Nitrite NEG Urine Bilirubin NEG Urine Urobilinogen LESS THAN 2.0 MG/DL Urine Leukocyte Esterase NEG Urine RBC 18 /hpf Urine WBC 14 /hpf Urine Squamous Epithelial <1 /hpf Cells Urine Amorphous Sediment RARE Urine Bacteria RARE /hpf Urine Hyaline Casts 1 /lpf Microscopic Urinalysis Comment CATH-CULTURE IND Culture Results Microbiology Date/Time Procedure Status Source Growth 02/05/17 06:15 Stool Occult Blood (TONY) - Final Complete Stool Stool HEMOCCULT POSITIVE 02/06/17 11:10 Urine Culture Received Urine Catheterized Urine Pending Administered Medications Medications (Trade) Dose Ordered Sig/Claire Route PRN Reason Start Time Stop Time Status Last Admin Dose Admin Docusate Sodium (Colace Liq) 100 mg Q12HR PO 01/06/17 21:00 02/05/17 21:28 Sodium Chloride (NS Flush) 2 ml UNSCH PRN IV FLUSH FLUSH AFTER USING IV ACCESS 01/06/17 13:15 02/02/17 07:30 Sodium Chloride (NS Flush) 2 ml BID IV FLUSH 01/06/17 21:00 02/06/17 08:18 Chlorhexidine Gluconate (Chlorhexidine 2% Cloth) Taper DAILY@04 TOP 01/07/17 04:00 01/03/18 03:59 02/01/17 04:00 Dextrose (D50w (Vial) Inj) 25 ml UNSCH PRN IV PUSH HYPOGLYCEMIA-SEE COMMENTS 01/09/17 07:15 01/21/17 19:15 Insulin Aspart (NovoLOG SUPPLEMENTAL SCALE) 1 Q6HR SQ 01/10/17 06:00 02/05/17 11:52 Bisacodyl (Dulcolax Supp) 10 mg DAILY PRN RECTAL CONSTIPATION 01/10/17 09:15 Hold 01/10/17 09:56 Sennosides (Senna Liq) 8.8 mg BID PO 01/16/17 09:00 02/05/17 21:28 Glycerin (Glycerin Adult Supp) 2 gm BID PRN RECTAL CONSTIPATION 01/17/17 06:45 01/17/17 14:30 Sodium Chloride (NS Flush) DAILY IVF 01/17/17 12:30 02/04/17 07:39 Artificial Tears (Tears Naturale Opth Soln) 1 drop Q8HR EACH EYE 01/17/17 22:00 02/06/17 05:57 Chlorhexidine Gluconate 15 ml 15 ml BID@08,20 MT 01/17/17 20:00 02/06/17 08:22 Midazolam HCl 100 ml @ 0 mls/hr TITRATE IV 01/17/17 16:45 01/25/17 00:18 Fentanyl Citrate (fentaNYL DRIP) 250 ml @ 0 mls/hr TITRATE IV 01/17/17 16:45 01/29/17 05:32 Metoclopramide HCl (Reglan Inj) 5 mg Q8HR IV PUSH 01/18/17 06:45 02/06/17 05:57 Calcium Acetate (Phoslo) 667 mg TID PO 01/19/17 09:00 02/06/17 08:17 Lansoprazole 30 mg 30 mg DAILY NG 01/19/17 09:00 02/06/17 08:17 Sodium Chloride 1,000 ml @ 0 mls/hr Q0M PRN IV For Prime & Rinse Back 01/19/17 08:06 02/05/17 08:31 Sodium Chloride (NS 1000 ml Inj) 1,000 ml @ 0 mls/hr Q0M PRN IV WITH DIALYSIS 01/19/17 08:06 01/27/17 09:24 Mannitol (Mannitol Inj) 12.5 gm UNSCH PRN IV WITH DIALYSIS 01/19/17 08:15 01/26/17 15:26 Albumin Human (Albumin 25% Inj) 25 gm UNSCH PRN IV WITH DIALYSIS 01/19/17 08:15 02/05/17 09:56 Sodium Chloride (NS Flush) 5 ml UNSCH PRN IV FLUSH WITH DIALYSIS 01/19/17 08:15 01/27/17 09:22 Gentamicin Sulfate (Gentamicin (Dialysis) Inj) 20 mg UNSCH PRN IV WITH DIALYSIS 01/19/17 08:15 02/05/17 08:32 Acetaminophen (Tylenol) 650 mg UNSCH PRN PO for headach, pain, temp > 101F 01/19/17 08:15 02/05/17 00:02 Epoetin Rizwan (Epogen Inj) 4,000 units UNSCH PRN IV WITH DIALYSIS 01/19/17 08:15 02/05/17 08:32 Labetalol HCl (Trandate Inj) 10 mg Q1HR PRN IV PUSH SBP>160, DBP>90, HR>65 01/24/17 19:15 01/24/17 19:28 Hydralazine HCl (Apresoline Inj) 10 mg Q1HR PRN IV PUSH SBP>160, DBP>90 01/24/17 19:15 01/29/17 09:33 Hyoscyamine Sulfate (Levsin) 0.25 mg Q4H PRN PO secretions 01/29/17 11:00 01/29/17 12:07 Nystatin (Mycostatin Powder) 1 applic Q12HR PRN TOPICAL rash 01/29/17 11:00 02/01/17 12:47 Amiodarone HCl (Cordarone) 200 mg Q12HR PO 01/31/17 09:00 02/06/17 08:17 Lactulose (Lactulose Liq) 30 ml DAILY PO 01/31/17 09:00 02/05/17 08:43 Heparin Sodium (Porcine) UNSCH PRN .XX WITH DIALYSIS 01/31/17 10:45 02/05/17 08:32 Piperacillin Sod/ Tazobactam Sod (Zosyn 2.25 Gm Premix) 50 ml @ 100 mls/hr Q8H IV 02/01/17 21:00 02/06/17 05:32 Carvedilol (Coreg) 25 mg Q12HR PO 02/03/17 21:00 02/06/17 08:17 Digoxin (Lanoxin Liq) 0.125 mg DAILY PO 02/03/17 10:00 02/06/17 08:45 Fentanyl Citrate 50 mcg 50 mcg Q2HR PRN IV PUSH pain 1-10 02/03/17 10:00 02/06/17 03:35 Heparin Sodium/ Dextrose (Heparin-D5W Inj) 250 ml @ 0 mls/hr TITRATE IV 02/04/17 13:00 Future Hold 02/05/17 22:49 Prednisone 15 mg 15 mg DAILY PO 02/05/17 09:00 02/06/17 08:17 Diltiazem HCl/ Sodium Chloride (Cardizem Inj/NS Inj) 125 ml @ 0 mls/hr TITRATE IV 02/05/17 14:15 02/06/17 06:21 Objective Remarks GENERAL: Intubated, sedated, elderly male SKIN: Warm and dry. HEAD: Normocephalic. bleeding from bilateral nares. EYES: No injection or drainage. NECK: Supple, trachea midline CARDIOVASCULAR: Regular rate and rhythm RESPIRATORY: anterior guardado clear. on mechanical ventilation. GASTROINTESTINAL: Abdomen nondistended. EXTREMITIES: No cyanosis NEUROLOGICAL: intubated but awake. Assessment/Plan Problem List: (1) Thrombosis of left atrium without antecedent myocardial infarction Status: Acute Plan: -- on heparin gtt (on hold due to epistaxis) Assessment 71y/o male admitted in afib w/RVR. 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 --hematoma from central line placement in the right neck Plan 1. place heparin on hold 2. monitor serial H/H Attending Statement The exam, history, and the medical decision-making described in the above note were completed with the assistance of the mid-level provider. I reviewed and agree with the findings presented. I attest that I had a [id number] encounter with the patient on the same day, and personally performed and documented my assessment and findings in the medical record. Pt seen and examined with family at bedside. Still oozing nose bleed despite heparin stopped. Trial afrin, pt's holding pressure on nose, would like to avoid nasal balloon. Evaluate for clotting. Cont hold heparin due to bleed, platelet count recover, hgb stable 8.8 Priya Fraga Feb 06, 2017 13:17 Meghan Torres MD Feb 06, 2017 18:42
[2017-02-06 19:39] LABS: HEMATOCRIT 24.1 % (39.0-51.0)
[2017-02-06 19:51] LABS: REVIEW FLAG FINAL
[2017-02-06] MEDS ORDERED: OXYMETAZOLINE HCL 0.05% 15 ML NASAL SPRAY NASAL ONE (20:00)
[2017-02-07] VITALS (19 sets, daily range): BP systolic 118–169; BP diastolic 57–119; PULSE 75–130; RESP 14–28; TEMP 98.5–99.7; O2SAT 84–100
[2017-02-07] MEDS: RESP: ALBUTEROL 2.5 MG/IPRATROPIUM 0.5 MG NEB (SCH) NEB ×4 (01:29→20:34)
[2017-02-07] MEDS: CHLORHEXIDINE GLUCONATE 2 % 1 PACK (2 CLOTHS) TOP SCH (04:00)
[2017-02-07] MEDS: hydrALAZINE HCL 20 MG/ML VIAL IV PUSH PRN (04:17)
[2017-02-07 04:24] LABS: AUTOMATED NEUTROPHIL # 6.2 TH/MM3 (1.8-7.7); BASOPHIL % 0.5 % (0.0-2.0); EOSINOPHIL # 0.3 TH/MM3 (0-0.4); EOSINOPHIL % 4.6 % (0.0-4.0); HEMATOCRIT 24.8 % (39.0-51.0); LYMPHOCYTE # 0.4 TH/MM3 (1.0-4.8); MEAN CELL VOLUME 88.6 FL (80.0-100.0); MEAN CORPUSCULAR HEMOGLOBIN 29.1 PG (27.0-34.0); MEAN CORPUSCULAR HGB CONC 32.9 % (32.0-36.0); MONO % 5.8 % (0.0-8.0); NEUT % 83.1 % (16.0-70.0); PLATELET COUNT 139 TH/MM3 (150-450); RED CELL DISTRIBUTION WIDTH 17.8 % (11.6-17.2); WHITE BLOOD COUNT 7.5 TH/MM3 (4.0-11.0)
[2017-02-07 04:26] LABS: HEMO FLAGS AUTO DIFF
[2017-02-07 04:30] LABS: APTT (PATIENT) 24.8 SEC (24.3-30.1)
[2017-02-07 04:55] LABS: POTASSIUM 3.4 MEQ/L (3.5-5.1)
[2017-02-07] MEDS: PIPERACIL-TAZO 2.25 GM PREMIX 50 ML IV SCH ×3 (04:59→20:49)
[2017-02-07 05:34] LABS: SCAN/DIFF AUTO DIFF CONFIRMED
[2017-02-07] MEDS: ARTIFICIAL TEARS OPTH SOLN 15 ML BTL EACH EYE SCH ×3 (05:48→23:36)
[2017-02-07] MEDS: DILTIAZEM INJ 125 MG in SODIUM CHLORIDE 0.9% INJ 100 ML IV SCH ×2 (05:48→18:08)
[2017-02-07] MEDS: INSULIN ASPART SUPPLEMENTAL SCALE SQ SCH ×4 (05:49→17:32)
[2017-02-07] MEDS: METOCLOPRAMIDE HCL 10 MG/2 ML VIAL IV PUSH SCH ×3 (05:49→22:33)
--- NOTE | 2017-02-07 08:06 | HHI.CCPN ---
Subjective Remarks/Hospital Course This is a 71-year-old gentleman that presented to [facility] secondary to dyspnea and atrial fibrillation with RVR. The patient has a medical history significant for obesity and hypertension. During his hospitalization at [facility], the patient underwent an echocardiogram which showed severe systolic dysfunction with an ejection fraction of 1015 % the patient then underwent a cardiac catheterization showing significance with left circumflex 90%. The patient underwent multiple attempts of unsuccessful synchronized cardioversion. The patient also underwent medical management with beta blockers, and calcium channel blockers that were also unsuccessful. The patient was transferred to [facility] for cardiac ablation with Dr. Jimenez. The patient was scheduled for cardiac ablation, the procedure was canceled. The patient required emergent intubation and required ventilator management a VLADIMIR was performed showing a clot in the left atrial appendage. The patient was placed on IV Cardizem, and an amiodarone infusion. Critical Care medicine was consulted for management. 01/06: Tmax 97.4. The patient remained on elevated vent settings with FiO2 of 1.0 overnight, PEEP requirements were increased to 8, to maintain a PaO2 of greater than [address] scan of the chest was obtained which noted bilateral effusions small, basilar consolidations right worse than the left, and a loculated area representing a possible pneumonia process, empyema, as well as aspiration or just loculated fluid as well as a small pericardial effusion. The patient continues on Cardizem and amiodarone infusions with a heart rate overnight 80s -115. The patient's vasopressor requirements of phenylephrine diminished to 20 mcgs. 01/07: Tmax 99.2. Yesterday the central line was placed for vasoactive medications and CVP monitoring, small hematoma noted near the right IJ area soft no compression of major vessels, with resolution of bleeding in that area. Phenylephrine was discontinued yesterday. The patient heart rate remains today [id number]. Cardizem infusion has been discontinued in the setting of EF of 10-15%. Esmolol infusion to be initiated this a.m.. Coumadin was initiated last night now placed on hold due to patient bleeding from nasopharynx and oropharynx. INR currently 1.2. Plan for CT thorax tomorrow, with possible IR intervention versus CVT consultation for possible empyema the patient will remain on heparin infusion, and transition onto Coumadin after any potential procedures to be initiated. Chest x-ray slightly improved FiO2 decreasing now 70%. Sedation vacation yesterday revealed GCS 11 T, patient alert responsive following commands. With initiation of antibiotics, leukocytosis resolved. ID consulted Dr. Gage. Blood cultures are pending. 01/08: Patient's heart rate 110-[address] scan of the chest imaging revealed fluid. Plan for thoracentesis and and studies of pleural fluid , this afternoon. The patient remains on amiodarone and heparin infusions, per cardiology. Heparin held, for thoracentesis this afternoon, and then will be resumed. The patient was maintained on CPAP trial for approximately one hour yesterday. During sedation vacation patient was alert following commands recognizing family. Plan to resume CPAP trials this afternoon post thoracentesis. 01/09: The patient underwent CT-guided thoracentesis yesterday , on the right side noted 400 cc of fluid was removed , with specimens ordered to be sent for evaluation .This morning chest x-ray performed showing almost complete opacification of the left lung. FiO2 requirements increase patient on FiO2 of 80%, O2 sat 94%. Left chest ultrasound obtained revealing no fluid. Consent obtained BAL performed, revealing emanating from the nearest previously ( patient was noted to have epistaxis with initiation of heparin on 01/06). Blood clots noted in left lung upon visualization with bronchoscopy, saline lavage applied, minimal blood clots removed. The patient was initiated on Mucomyst 10% , and pulmonology was consulted. Dr. Tasia Lama following. The patient shows no signs or evidence of bleeding actively, plan to consult ENT if signs of active bleeding become evident. Hemoglobin remains stable.The patient converted into sinus rhythm is today afternoon. Cardiology management of medications, IV amiodarone discontinued this afternoon. 01/10: Tmax 99.0. Chest x-ray shows slight improvement of left lung today. Plan for repeat bronchoscopy per Dr. Burch this a.m, and the patient continues on Mucomyst. The patient's cardiac rhythm reverted to A. fib last evening, amiodarone IV infusion reinstituted per Dr. Jimenez. 01/11: TMax 100.0. Much improved chest x-ray this morning. The patient continues in A. fib with a rate of 120, he continues on amiodarone, heparin infusion per cardiology. No evidence of active bleeding. 5/12 Patient Remains sedated with Diprivan, intubated. T:99.9. On Neosyn 15 mics , heparin and Amio drips. In Afib with RRV. Patient s/p repeat bronch with BAL yesterday by Dr. Burch and ETT replacement by Dr. Sanchez. On PC/AC with PEEP:14 , FIO2 100%. 01/13: TMax 100.2. Last night the nurse reported that the patient had a small amount of epistaxis, and blood in the oropharynx noted. The area continued to bleed during the night. ENT has been consulted. Heparin has been placed on hold , ASA has been discontinued in the setting of acute renal failure. The patient continues on amiodarone infusion , heart rate 120's. Neosynephrine has been discontinued, and Levophed instituted. Creatinine noted to be 4.5. As per report , states patient does not want dialysis. The patient continues on elevated PEEP of 14. 5/14: Heparin was discontinued yesterday in the setting of continued bleeding in the nasal/ oropharyngeal region. ENT was consulted and nasal packing was applied. During the night the patient still had small noted amount of bleeding from the oropharyngeal area plan today for oropharyngeal packing. Hgb 9, will transfuse .The patient was placed on norepinephrine for currently at 1-2 mcgs per minute. PEEP has been decreased to 12, with adequate oxygenation a PaO2 of 71. 5/15: Tmax 99.0. The patient continues to be anemic and thrombocytopenic, contributory factors being uremia. The patient's /family decided to pursue hemodialysis at this point. The patient received 1 unit of packed red blood cells yesterday. The patient was initiated on dialysis yesterday afternoon, with approximately 3 L removed. Nasal gauze packing removed and placement of nasal balloons by ENT yesterday. Oral gauze packing to be removed today. The patient received 2 separate doses of digoxin, A. fib heart rate ranging 80- < 120. The patient continues to have high ventilatory requirements, FiO2 was increased throughout the night to currently 80%, to maintain O2 sat greater than 92%. 01/16: FiO2 at 85%. Large clots removed from oropharynx overnight. Transfused 2 units PRBCs yesterday. No bowel movement. Tolerating tube feeds at 40 cc now with Nepro 01/17: Maximum 100.6. CURRENT TEMPERATURE 98.1. Central line pulled out yesterday. Flolan initiated yesterday and FiO2 down to 65%. Tolerating tube feeds. No bowel movement. Arousable weakly follow commands yesterday 01/18: Tmax 99.8. Currently afebrile. Initially, hemoptysis with desaturation requiring bronchoscopy. See bronchoscopy note. Roto-Rest bed ordered. FiO2 from 100-70% currently. On Nimbex drip. No BM. Tolerating tube feeds. 01/19: Afebrile. FiO2 down to 40%. We will attempt a wean Flolan today. On Nimbex drip. Positive BM yesterday. Tolerating tube feeds. 01/20: FiO2 back to 100%. Flolan "fell off "overnight. Ventilator adjusted back to 100%. Flolan reinstituted. Chest x-ray and ABG pending. Tolerating tube feeds. Positive BM. Afebrile. 01/21: Intolerant of tube feeding. KUB pending. Afebrile. Bleeding from bilateral nares and Alanis overnight. Argatroban has been held. Positive BM. 01/22 Patient is sedated with Fentanyl , versed in addition he is on Nimbex. Receiving HD. TF on hold for high residuals. 01/23 Patient is on Roto prone bed sedated and intubated. s/p HD yesterday with removal 3L. On Nimbex, afebrile. 01/24 Patient remains sedated with Versed, Fentanyl and remains on Nimbex. On PC/ AC with PEEP: 10, FIO2 down 40%. For HD today. Afebrile. 01/25 Patient remains sedated and intubated . On PC/AC with PEEP: 10 and FIO2 50% . s/p HD yesterday with removal 4.5L. Afebrile. 01/26 Patient is sedated with Fentanyl off versed and Nimbex. s/p bronch yesterday by Dr. Burch. On PRVC/AC with PEEP: 10 and FIO2 down to 50% s/p HD yesterday with removal 1.5. For another HD session today. 01/27 Patient is sedated with Fentanyl and intubated, s/p HD yesterday with removal 4L. Afebrile. On PRVC/AC mode with PEEP; 10 and FIO2 45% 01/28 Patient remains sedated with Fentanyl and intubated. s/p HD yesterday with removal 3L. Placed on Amio drip yesterday for Afib with RVR, 01/29 No acute events overnight. Sedated with Fentanyl and intubated. Afebrile. On PRVC/AC with PEEP: 10 and FIO2 70% decreased to 60% 01/30 No events overnight. Sedated with Diprivan on Amio drip and Cardizem 5mg/ hr. s/p HD yesterday with removal 2L. Spiked fever yesterday with T 101.7 .On PRVC/AC with PEEP: 10, FIO2 65% 01/31: Afebrile. FiO2 at 65%. PEEP at 10. Heart rate between 70 and 130. Cardizem drip at 15 mg an hour. For CT head today. Copious amounts of oral secretions. Minimal via suctioning 02/01: Currently afebrile. Heart rate consistently in the 120s to 140s. Cardizem drip back up to 15 mg an hour. More awake and withdrawing right upper , bilateral lower extremities. Moving head side to side. 02/02: Remains intubated and sedated with 15 mcg/min of propofol. In Afib with RVR in HR 130/min. Give additional 15 mg IVx1 and increase drip to 20 mg per hour. Moves L UE spontaneously. PEg and OR trach planned for today 02/03: Patient is status post trach and PEG yesterday 02-17. Currently remains on propofol and Cardizem infusions. Off all pressors. Rate control is improved, but still 100-110. Will increase carvedilol and start digoxin for improved rate control. Chest x-ray shows evidence of fluid overload, patient remains oliguric 02/04: Currently off all sedation. Awake weakly follows commands. Chest x-ray shows bilateral effusion and pulmonary edema-we'll request additional hemodialysis today. A. fib rate controlled and remains on 20 mg per hour of Cardizem 02/05 No acute events overnight. Patient remains on ventilator via trach. On Heparin drip and Cardizem drip 15mg/hr, s/p HD yesterday with removal 4L. On no sedation. Afebrile. 02/06 Patient is on ventilator via trach. On Heparin and Cardizem drips 15mg/hr, Tmax 100.4. H/H stable, s/p HD yesterday with removal 4L. 02/07: still on vent via trach. PSV 06/09/45%. heparin on hold. still on cardizem at 15 mg/hr, had to increase for a short time to 20 mg/hr. H/H stable. plan for permacath today. Objective Vital Signs Date Time Temp Pulse Resp B/P Pulse Ox O2 Delivery O2 Flow Rate FiO2 02/07/17 07:32 99 45 02/07/17 06:00 97 02/07/17 04:15 154/102 02/07/17 04:00 99.7 24 Intake and Output 02/06/17 02/06/17 02/07/17 08:00 16:00 00:00 Intake Total 723 ml 902 ml 533 ml Output Total 235 ml 100 ml 410.0 ml Balance 488 ml 802 ml 123.0 ml Result Diagram: 02/07/17 0356 02/07/17 0356 Other Results Microbiology Date/Time Procedure Status Source Growth 02/05/17 06:15 Stool Occult Blood (TONY) - Final Complete Stool Stool HEMOCCULT POSITIVE Imaging Last Impressions Chest X-Ray 02/05/17 0600 Signed Impressions: Service Date/Time: Sunday, February 05, 2017 02:59 - CONCLUSION: Stable pulmonary vascular congestion right worse the left. Tracheostomy tube in good position. Heart remains enlarged Orlin Mascorro MD Head CT 01/31/17 0000 Signed Impressions: Service Date/Time: Tuesday, January 31, 2017 08:42 - CONCLUSION: 1. 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 Right basal ganglia lacunar infarct is age indeterminate. 2. Maurice sinusitis along with opacification of the middle ears and mastoid air cells bilaterally. Geovanny Lynch MD Abdomen X-Ray 01/21/17 0000 Signed Impressions: Service Date/Time: Saturday, January 21, 2017 08:41 - CONCLUSION: Nondiagnostic study. Gurvinder Collier MD Renal Ultrasound 01/09/17 0000 Signed Impressions: Service Date/Time: Monday, January 09, 2017 13:56 - CONCLUSION: 1. Right kidney is sonographically normal. 2. Benign-appearing 2.4 x 1.5 cm cortical cyst in the midpole of the left kidney. 3. Subcentimeter echogenic, non-shadowing foci in the midpole of the left kidney would be unusual for stones and may represent ectopic hilar fat. No hydronephrosis. 4. Urinary bladder is decompressed with a Alanis catheter. Douglas Ward MD Chest Ultrasound 01/09/17 0000 Signed Impressions: Service Date/Time: Monday, January 09, 2017 08:18 - CONCLUSION: No left-sided pleural effusion. The abnormality in the left chest on chest radiograph is likely related to mucous plugging. When patient had a CT scan yesterday the left lung was well aerated. Edgardo Mayorga MD Chest CT 01/08/17 0600 Signed Impressions: Service Date/Time: Sunday, January 08, 2017 08:46 - CONCLUSION: Massive cardiomegaly with panchamber enlargement extensive coronary calcifications. Stable trace pericardial effusion. Increasing bibasilar consolidative changes with minimal bilateral pleural effusions.. Rhys Fritz MD FACR Thoracentesis 01/08/17 0000 Signed Impressions: Service Date/Time: Sunday, January 08, 2017 16:08 - CONCLUSION: Uncomplicated CT-guided thoracentesis on the right. The left sided thoracentesis was not performed as there was no significant left pleural fluid. The abnormality on most recent chest x-ray was secondary to mucous plugging and left sided atelectasis. Edgardo Mayorga MD Objective Remarks GENERAL: 71-year-old male, critically ill obese HEAD: Atraumatic. Normocephalic. EYES: Pupils equal and round, 5mm and reactive to 4 mm. No scleral icterus. No injection or drainage. ENT: No active bleeding. Clear secretions from mouth with suctioning NECK: Trachea midline. Large right-sided evolving hematoma without tracheal shift. Evolving ecchymoses. trach without significant bleeding CARDIOVASCULAR: A. fib rate controlled. RESPIRATORY: Diminished breath sounds throughout especially in the bases bilaterally. Breath sounds equal bilaterally. GASTROINTESTINAL: Abdomen soft, obese non-tender, nondistended. MUSCULOSKELETAL: Extremities with 1+ peripheral edema. No obvious deformities. Right femoral Vas-Cath is clean dry and intact NEUROLOGICAL: Eyes are open tracks attempts to talk. Positive corneal reflex. Very weakly follows commands on all 4 extremities, Nods head Date of Insertion: January 05, 2017 Date of Insertion: January 17, 2017 Line: Central Venous Catheter Side: Left Location: Subclavian, Jugular A/P Assessment and Plan Neuro/Psych: Lacunar infarcts bilateral basal ganglia, left thalamus Acute metabolic encephalopathy Epistaxis Use PRN Ativan and fentanyl for agitation, vent synchrony Completed EEG 01/30 revealed no epileptiform activity. Severe encephalopathy. CT brain 01/31 revealed bilateral basal ganglia and left thalamic CVA. Right basal ganglia CVA indeterminate age Dr. Cole/neurology following 01/12 New onset epistaxis, heparin discontinued until 01/31 and restarted Epistaxis-ENT consulted-nasal balloons in situ maintain balloons until 01/20 per ENT recommendation. Removed 01/20 but resumed bleeding so replaced- 01/21, now off ENT has followed- Dr. Byrd. Respiratory: Acute hypoxic respiratory failure Left lung consolidation 2/2 previous event of epistaxis, clotted blood left lung -resolved Probable aspiration Multilobar [id number] Bilateral pleural effusions SONU Continue with vent support keep sat >90%. s/p OR trach by Dr. Bhakta 02/02 DuoNeb scheduled every 6 hours with albuterol every 2 hours as needed ICU vent bundle. Pulmonology following- Dr. Burch Pulm toilet, trach care, SBT trials as dennis Currently on prednisone 15mg daily 01/08-right CT-guided thoracentesis-400 cc removed s/p bronch .11 by- Dr. Burch for blood clots left lung Status post bronch 01/17 by eligibility supervisor - bloody mucous plug at saturnino/mainstem section cleared. No obvious source of bleeding. s/p bronch 01/[address] Burch. -minimal secretions. CV: A. fib with RVR Left atrial appendage thrombus Acute Systolic CHF Cardiomyopathy Hypertension Dyslipidemia Continue with Amio at 200 mg twice a day, Coreg 25 BID. Monitor HR and BP keep MAP>65mmHg On Cardizem drip 15mg/hr for rate control. start po cardizem 90 q6hr. On digoxin 0.125 mg daily Dig level 1.1 02/04 01/13- ASA discontinued due to epistaxis. IV heparin held at midnight for procedures-resume today 01/05 VLADIMIR( [employer])-left atrial thrombus EF 15-20%. Systolic function reduced. Diffuse hyperkinesis. 12/26 [facility] severe systolic dysfunction EF 1015%, mitral valve mild to moderate regurg, LAE, tricuspid Valve-mild to moderate regurg, small pericardial effusion, 12/19 cardiac cath left circumflex 90% occlusion VLADIMIR EF 15-20%. Management per Cardiology -Dr. Jimenez Renal: Acute on chronic kidney disease stage IV Nephrology following-Dr. Hahn Monitor renal function, I/O's, avoid nephrotoxins. VasCath placement Hemodialysis initiated 01/14. PermeCath placement today. s/p HD 02/05 with removal 4L, FEN/GI: Morbid obesity Hyperphosphatemia s/p PEG 02/03. Tube feeds at goal (Nepro at 45ml/hr) Prevacid for GI prophylaxis Bowel Colace/Senokot twice a day. On Reglan 5 every 8 and erythromycin 200 every 8 for bowel motility/prokinetic PhosLo 667 3 times a day for hyperphosphatemia Heme: Normocytic anemia Thrombocytopenia Transfused 6 units PRBCs since admission Weakly positive HIT panel-CLIFFORD is negative. Repeat 01/30 with HIT negative Agree with stopping Heparin drip per hematology ( recurrent epistaxis and some bleeding from decub ulcers) . Monitor CBC, coags Had discussion with Dr. Jimenez, at this point we have had multiple bleeding complications which have all been life-threatening, even with low-dose anticoagulation. The life-threatening risks of anticoagulation for this patient far outweigh the known and real thrombosis risk given his known thrombus. Certainly, not anticoagulating comes with risks, but we have already proven that any anticoagulation has been life-threatening on more than one occasion. Dr. Jimenez agrees at this point we have failed anticoagulation therapy. If the patient clinically improves over the coming 3-6 months and has no more complications, at that point anticoagulation could be re-addressed. ID: Likely aspiration pneumonia 01/06 urine, sputum, blood cultures-NGTD 01/06-Legionella urine antigen negative 01/09 - bronchoscopy - yeast/ID to follow 01/12 - blood cultures 2 - no growth 01/20 - blood cultures 2 - staph Epi 09/06 bottles- likely contaminant 01/29 - blood cultures 2 -no growth 01/30 - sputum -immature growth 01/30 - urine -no growth Continue with abx (Zosyn) Given Vanco x1 dose 01/29-Dr. Jade Gage following, Check Sputum cx, UA with cx if indicated Endocrine: Close monitoring per ICU protocol-medium dose regimen -- SSI Accu-Cheks every 6 hours for glycemic control Prophylaxis: GI Prophylaxis Prevacid 30 mg at night DVT Prophylaxis -- SCDs Lines: Peripheral IV's. Right femoral HD catheter 01/19, Patient developed hematoma on right side of his neck from previous attempt of central line placement. Dispo: is Olena Muhammad [phone] . Essentially ready for LTAC placement at this time. will need afib rate controlled, otherwise ready for long-term care. Daniel Daniels MD Feb 07, 2017 08:06
[2017-02-07] MEDS: ALBUMIN HUMAN 25% 25 GM/100 ML BAGP IV PRN (08:33)
[2017-02-07] MEDS: GENTAMICIN SULFATE (DIALYSIS USE ONLY) 20 MG/2 ML VIAL IV PRN (08:33)
[2017-02-07] MEDS: SODIUM CHLOR 0.9% 1000 ML INJ 1,000 ML IV PRN (08:33)
[2017-02-07] MEDS: HEPARIN SODIUM - IV 10,000 UNITS/10 ML VIAL PRN (08:33)
[2017-02-07] MEDS: EPOETIN ALFA 4,000 UNITS/ML VIAL IV PRN (08:34)
[2017-02-07] MEDS: SODIUM CHLORIDE 0.9% FLUSH 10 ML FLUSH IVF SCH (09:00)
[2017-02-07] MEDS: DILTIAZEM HCL 90 MG TAB PO SCH ×3 (09:00→22:32)
[2017-02-07] MEDS: SODIUM CHLORIDE 0.9% FLUSH 10 ML FLUSH IV FLUSH SCH ×2 (09:09→20:53)
[2017-02-07] MEDS: CHLORHEXIDINE 0.12% (ORAL KIT) 15 ML CUP MT SCH ×2 (09:09→20:52)
[2017-02-07] MEDS: CALCIUM ACETATE 667 MG CAP PO SCH ×3 (09:10→17:32)
[2017-02-07] MEDS: predniSONE 10 MG TAB PO SCH (09:10)
[2017-02-07] MEDS: LANSOPRAZOLE SOLUTAB 30 MG TAB NG SCH (09:11)
[2017-02-07] MEDS: LACTULOSE SYRUP 20 GM/30 ML CUP PO SCH (09:12)
[2017-02-07] MEDS: SENNOSIDES SYRUP 8.8 MG/5 ML CUP PO SCH ×2 (09:12→20:48)
[2017-02-07] MEDS: DOCUSATE SODIUM 100 MG/10 ML UDC PO SCH ×2 (09:12→20:48)
[2017-02-07] MEDS: NYSTATIN 100,000 U/GM PWD 15 GM BTL TOPICAL PRN (09:13)
--- NOTE | 2017-02-07 10:39 | PD.ONC.PN ---
Subjective Subjective Remarks Tmax 99.7 overnight. Per RN oozing has decreased No more nosebleeds Currently getting dialysis Objective Data Date Time Temp Pulse Resp B/P Pulse Ox O2 Delivery O2 Flow Rate FiO2 02/07/17 07:32 99 45 02/07/17 06:00 97 02/07/17 04:15 154/102 02/07/17 04:05 99 45 02/07/17 04:00 45 02/07/17 04:00 126 02/07/17 04:00 99.7 126 24 169/111 96 02/07/17 02:00 83 02/07/17 01:25 96 45 02/07/17 00:00 75 02/07/17 00:00 99.2 75 19 138/74 97 02/07/17 00:00 45 02/06/17 22:02 97 45 02/06/17 22:00 79 02/06/17 20:10 97 40 02/06/17 20:00 82 02/06/17 20:00 99.3 82 24 168/84 94 02/06/17 20:00 45 02/06/17 18:00 88 02/06/17 16:00 45 02/06/17 16:00 98.4 129 25 169/102 94 02/06/17 16:00 129 02/06/17 15:04 97 45 02/06/17 14:00 101 02/06/17 12:00 91 02/06/17 12:00 98.8 91 23 144/72 95 02/06/17 12:00 45 02/06/17 11:56 98 45 02/07/17 02/07/17 02/07/17 07:00 15:00 23:00 Intake Total 333 ml Output Total 175 ml Balance 158 ml Result Diagram: 02/07/17 0356 02/07/17 0356 Laboratory Results Laboratory Tests Test 02/06/17 02/06/17 02/07/17 11:10 19:09 03:56 Urine Color YELLOW Urine Turbidity HAZY Urine pH 7.0 Urine Specific [place] 1.013 Urine Protein 100 mg/dL Urine Glucose (UA) NEG mg/dL Urine Ketones NEG mg/dL Urine Occult Blood MOD Urine Nitrite NEG Urine Bilirubin NEG Urine Urobilinogen LESS THAN 2.0 MG/DL Urine Leukocyte Esterase NEG Urine RBC 18 /hpf Urine WBC 14 /hpf Urine Squamous Epithelial <1 /hpf Cells Urine Amorphous Sediment RARE Urine Bacteria RARE /hpf Urine Hyaline Casts 1 /lpf Microscopic Urinalysis Comment CATH-CULTURE IND Hemoglobin 8.1 GM/DL 8.2 GM/DL Hematocrit 24.1 % 24.8 % White Blood Count 7.5 TH/MM3 Red Blood Count 2.80 MIL/MM3 Mean Corpuscular Volume 88.6 FL Mean Corpuscular Hemoglobin 29.1 PG Mean Corpuscular Hemoglobin 32.9 % Concent Red Cell Distribution Width 17.8 % Platelet Count 139 TH/MM3 Mean Platelet Volume 9.1 FL Neutrophils (%) (Auto) 83.1 % Lymphocytes (%) (Auto) 6.0 % Monocytes (%) (Auto) 5.8 % Eosinophils (%) (Auto) 4.6 % Basophils (%) (Auto) 0.5 % Neutrophils # (Auto) 6.2 TH/MM3 Lymphocytes # (Auto) 0.4 TH/MM3 Monocytes # (Auto) 0.4 TH/MM3 Eosinophils # (Auto) 0.3 TH/MM3 Basophils # (Auto) 0.0 TH/MM3 CBC Comment AUTO DIFF Differential Comment AUTO DIFF CONFIRMED Activated Partial 24.8 SEC Thromboplast Time Sodium Level 140 MEQ/L Potassium Level 3.4 MEQ/L Chloride Level 99 MEQ/L Carbon Dioxide Level 27.0 MEQ/L Anion Gap 14 MEQ/L Blood Urea Nitrogen 72 MG/DL Creatinine 4.84 MG/DL Estimat Glomerular Filtration 12 ML/MIN Rate Random Glucose 89 MG/DL Calcium Level 7.9 MG/DL Culture Results Microbiology Date/Time Procedure Status Source Growth 02/05/17 06:15 Stool Occult Blood (TONY) - Final Complete Stool Stool HEMOCCULT POSITIVE 02/06/17 11:10 Urine Culture Received Urine Catheterized Urine Pending 02/06/17 16:00 Gram Stain - Final Resulted Sputum Endotracheal 02/06/17 16:00 Sputum Culture Resulted Sputum Endotracheal Pending Administered Medications Medications (Trade) Dose Ordered Sig/Claire Route PRN Reason Start Time Stop Time Status Last Admin Dose Admin Docusate Sodium (Colace Liq) 100 mg Q12HR PO 01/06/17 21:00 02/07/17 09:12 Sodium Chloride (NS Flush) 2 ml UNSCH PRN IV FLUSH FLUSH AFTER USING IV ACCESS 01/06/17 13:15 02/02/17 07:30 Sodium Chloride (NS Flush) 2 ml BID IV FLUSH 01/06/17 21:00 02/07/17 09:09 Chlorhexidine Gluconate (Chlorhexidine 2% Cloth) Taper DAILY@04 TOP 01/07/17 04:00 01/03/18 03:59 02/01/17 04:00 Dextrose (D50w (Vial) Inj) 25 ml UNSCH PRN IV PUSH HYPOGLYCEMIA-SEE COMMENTS 01/09/17 07:15 01/21/17 19:15 Insulin Aspart (NovoLOG SUPPLEMENTAL SCALE) 1 Q6HR SQ 01/10/17 06:00 02/05/17 11:52 Bisacodyl (Dulcolax Supp) 10 mg DAILY PRN RECTAL CONSTIPATION 01/10/17 09:15 Hold 01/10/17 09:56 Sennosides (Senna Liq) 8.8 mg BID PO 01/16/17 09:00 02/07/17 09:12 Glycerin (Glycerin Adult Supp) 2 gm BID PRN RECTAL CONSTIPATION 01/17/17 06:45 01/17/17 14:30 Sodium Chloride (NS Flush) DAILY IVF 01/17/17 12:30 02/04/17 07:39 Artificial Tears (Tears Naturale Opth Soln) 1 drop Q8HR EACH EYE 01/17/17 22:00 02/07/17 05:48 Chlorhexidine Gluconate (Peridex 0.12% Liq) 15 ml BID@08,20 MT 01/17/17 20:00 02/07/17 09:09 Metoclopramide HCl (Reglan Inj) 5 mg Q8HR IV PUSH 01/18/17 06:45 02/07/17 05:49 Calcium Acetate (Phoslo) 667 mg TID PO 01/19/17 09:00 02/07/17 09:10 Lansoprazole 30 mg 30 mg DAILY NG 01/19/17 09:00 02/07/17 09:11 Sodium Chloride 1,000 ml @ 0 mls/hr Q0M PRN IV For Prime & Rinse Back 01/19/17 08:06 02/07/17 08:33 Sodium Chloride (NS 1000 ml Inj) 1,000 ml @ 0 mls/hr Q0M PRN IV WITH DIALYSIS 01/19/17 08:06 01/27/17 09:24 Mannitol (Mannitol Inj) 12.5 gm UNSCH PRN IV WITH DIALYSIS 01/19/17 08:15 01/26/17 15:26 Albumin Human (Albumin 25% Inj) 25 gm UNSCH PRN IV WITH DIALYSIS 01/19/17 08:15 02/07/17 08:33 Sodium Chloride (NS Flush) 5 ml UNSCH PRN IV FLUSH WITH DIALYSIS 01/19/17 08:15 01/27/17 09:22 Gentamicin Sulfate (Gentamicin (Dialysis) Inj) 20 mg UNSCH PRN IV WITH DIALYSIS 01/19/17 08:15 02/07/17 08:33 Acetaminophen (Tylenol) 650 mg UNSCH PRN PO for headach, pain, temp > 101F 01/19/17 08:15 02/05/17 00:02 Epoetin Rizwan (Epogen Inj) 4,000 units UNSCH PRN IV WITH DIALYSIS 01/19/17 08:15 02/07/17 08:34 Labetalol HCl (Trandate Inj) 10 mg Q1HR PRN IV PUSH SBP>160, DBP>90, HR>65 01/24/17 19:15 01/24/17 19:28 Hydralazine HCl (Apresoline Inj) 10 mg Q1HR PRN IV PUSH SBP>160, DBP>90 01/24/17 19:15 02/07/17 04:17 Hyoscyamine Sulfate (Levsin) 0.25 mg Q4H PRN PO secretions 01/29/17 11:00 01/29/17 12:07 Nystatin (Mycostatin Powder) 1 applic Q12HR PRN TOPICAL rash 01/29/17 11:00 02/07/17 09:13 Amiodarone HCl (Cordarone) 200 mg Q12HR PO 01/31/17 09:00 02/06/17 20:41 Lactulose (Lactulose Liq) 30 ml DAILY PO 01/31/17 09:00 02/07/17 09:12 Heparin Sodium (Porcine) UNSCH PRN .XX WITH DIALYSIS 01/31/17 10:45 02/07/17 08:33 Piperacillin Sod/ Tazobactam Sod (Zosyn 2.25 Gm Premix) 50 ml @ 100 mls/hr Q8H IV 02/01/17 21:00 02/07/17 04:59 Carvedilol (Coreg) 25 mg Q12HR PO 02/03/17 21:00 02/06/17 20:41 Digoxin 0.125 mg 0.125 mg DAILY PO 02/03/17 10:00 02/06/17 08:45 Heparin Sodium/ Dextrose (Heparin-D5W Inj) 250 ml @ 0 mls/hr TITRATE IV 02/04/17 13:00 Hold 02/05/17 22:49 Prednisone 15 mg 15 mg DAILY PO 02/05/17 09:00 02/07/17 09:10 Diltiazem HCl/ Sodium Chloride (Cardizem Inj/NS Inj) 125 ml @ 0 mls/hr TITRATE IV 02/05/17 14:15 02/07/17 05:48 Diltiazem HCl (Cardizem) 90 mg Q6H PO 02/07/17 09:00 02/07/17 09:00 Objective Remarks GENERAL: Overweight male lying in bed in no distress. Mechanically ventilated via trach SKIN: Warm and dry. No oozing from lines. HEAD: Normocephalic. bleeding from bilateral nares. EYES: No injection or drainage. NECK: Supple, tracheostomy midline. +Hematoma R neck CARDIOVASCULAR: +S1/S2. Afib on monitor. RESPIRATORY: Clear anteriorly. on mechanical ventilation. GASTROINTESTINAL: Abdomen obese. +BS. Tolerating TF per RN EXTREMITIES: No cyanosis NEUROLOGICAL: Awake. No purposeful movements. Assessment/Plan Problem List: (1) Thrombosis of left atrium without antecedent myocardial infarction Status: Acute Plan: -- Previously on a heparin infusion but this was placed on hold d/t epistaxis. -- Will restart him on SQ heparin once no further oozing. Assessment 71y/o male admitted in afib w/RVR. 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 --hematoma from central line placement in the right neck Plan 1. Per RN he is going down to IR for Permacath placement today. 2. If pt has no more episodes of bleeding we will start him on SQ heparin tomorrow. 3. Monitor Hgb. Attending Statement The exam, history, and the medical decision-making described in the above note were completed with the assistance of the mid-level provider. I reviewed and agree with the findings presented. I attest that I had a [id number] encounter with the patient on the same day, and personally performed and documented my assessment and findings in the medical record. Pt seen and examined. Nose with moist clot. Apparently rebleed after being moved around for procedure and dialysis. Heparin continues on hold. Follow tomorrow, to see if UFH could be restarted. Discussed w/ and daughter, goal therapeutic INR. Talia Antunez Feb 07, 2017 10:39 Meghan Torres MD Feb 07, 2017 20:10
[2017-02-07] MEDS ORDERED: ceFAZolin 2 GM PREMIX 50 ML IV SCH (10:45)
[2017-02-07] MEDS ORDERED: VANCOMYCIN INJ 1,000 MG in SODIUM CHLOR 0.9% 250 ML INJ 250 ML IV SCH (10:45)
--- NOTE | 2017-02-07 11:40 | HHI.NPPN ---
Subjective General Problems: Anemia, Edema, Heart Disease Renal Failure: Acute History of Present Illness 71-year-old the white male the who is transferred from [facility] to [facility] due to atrial fibrillation with fast ventricular response, he was in the heart catheterization lab and became unstable has to intubated the patient has chronic kidney disease, Cardiomyopathy ejection fraction of only 15% and has severe dilated cardiomyopathy with the clot in left atrium he is on heparin drip and currently on ventilator. Additional Remarks He appears to follow some commands. Objective Data Data 02/06/17 02/07/17 19:00 07:00 Intake Total 902 ml 866 ml Output Total 100 ml 585.0 ml Balance 802 ml 281.0 ml IV Total 400 ml 398 ml Tube Feeding 382 ml 408 ml Other 120 ml 60 ml Output Urine Total 100 ml 325 ml Stool Total 0 ml 260 ml Tube Feeding Residual Discard 0 ml # Bowel Movements 1 50 Vital Signs Date Time Temp Pulse Resp B/P Pulse Ox O2 Delivery O2 Flow Rate FiO2 02/07/17 11:12 96 45 02/07/17 10:00 122 02/07/17 08:00 45 02/07/17 08:00 98.6 77 14 118/57 96 02/07/17 08:00 77 02/07/17 07:32 99 45 02/07/17 06:00 97 02/07/17 04:15 154/102 02/07/17 04:05 99 45 02/07/17 04:00 45 02/07/17 04:00 126 02/07/17 04:00 99.7 126 24 169/111 96 02/07/17 02:00 83 02/07/17 01:25 96 45 02/07/17 00:00 75 02/07/17 00:00 99.2 75 19 138/74 97 02/07/17 00:00 45 02/06/17 22:02 97 45 02/06/17 22:00 79 02/06/17 20:10 97 40 02/06/17 20:00 82 02/06/17 20:00 99.3 82 24 168/84 94 02/06/17 20:00 45 02/06/17 18:00 88 02/06/17 16:00 45 02/06/17 16:00 98.4 129 25 169/102 94 02/06/17 16:00 129 02/06/17 15:04 97 45 02/06/17 14:00 101 02/06/17 12:00 91 02/06/17 12:00 98.8 91 23 144/72 95 02/06/17 12:00 45 02/06/17 11:56 98 45 -: 02/07/17 0356 02/07/17 0356 Microbiology 02/06/17 Gram Stain - Final, Resulted 02/06/17 Sputum Culture - Preliminary, Resulted IMMATURE GROWTH - REINCUBATE Physical Exam General Appearance: Well Developed Eyes Eye Exam: Pupils Equal Pulmonary Resp Exam: Rhonchi, Decreased Bases, Diminished Breath Sounds Cardiology CV Exam: Arrhythmia Gastrointestinal/Abdomen GI Exam: Soft, Non-Tender, Distended Extremeties Extremities Exam: Moderate Edema, Pitting Edema, Dependent Edema Neurologic Neuro Exam: Sedated Assessment/Plan Problem List: (1) Acute renal failure Plan: he has hemodialysis proceedings noted and seen during HD 3 L UF on 4 K bath K low give KCL need PermCath Severe cardiomyopathy prognosis is guarded. 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 Improved. Problem Qualifiers (1) CHF (congestive heart failure): Christa Hahn MD Feb 07, 2017 11:40
--- NOTE | 2017-02-07 11:44 | MP ---
cc: DAKOTA PFEIFFER M.D. DATE OF SURGERY: 02/02/2017 PROCEDURE Tracheostomy. PREOPERATIVE DIAGNOSIS Ventilator failure secondary to ARDS. POSTOPERATIVE DIAGNOSIS Ventilator failure secondary to ARDS. ANESTHESIA General endotracheal. SURGEON Yony ESTIMATED BLOOD LOSS 20 mL. FLUIDS 100 mL crystalloid. COMPLICATIONS None. DRAINS None. SPECIMEN None. PROCEDURE IN DETAIL The patient was taken to the operating room and placed on the operating table in a supine position. The neck was slightly hyperextended with a roll behind the shoulder blades transversely. The neck was sterilely prepped and draped. Timeout was taken confirming the correct patient, site and procedure to be performed. Skin was incised two fingerbreadths above the sternal notch. Dissection was carried down to the platysma with electrocautery and the strap muscles were divided in the midline with electrocautery as well. The thyroid isthmus was divided with electrocautery as well and the trachea was exposed. The trachea was also exposed laterally on both sides and 2-0 Prolene sutures were placed through the first tracheal ring to allow for traction. Due to the patient's extreme obese body habitus, the tracheostomy was placed in between the first and second tracheal rings instead of between the second and third. An inverse trapdoor incision was made between the first and second tracheal rings and then the second tracheal ring was divided on both sides with the knife. The endotracheal tube was withdrawn to a level above the tracheotomy site and an XLT tracheostomy tube was placed into the tracheotomy. The balloon was inflated and the circuit switched over to the XLT tracheostomy tube. Good tidal volumes and end-tidal CO2 were obtained. The tracheostomy tube was secured in place with 0 silk sutures. A tracheostomy tape was placed behind the neck to further secure it. The patient had minimal bleeding during the procedure and SNoW was utilized laterally to completely provide hemostasis prior to placement of the tracheostomy tube. The patient was taken back to intensive medical care where a stat. chest x-ray demonstrated no evidence of pneumothorax. He tolerated the procedure well. MD ABRIL Paul/LAVINIA /10:54 AM /11:35 AM
[2017-02-07] MEDS ORDERED: POTASSIUM CHLOR 20 MEQ PREMIX 100 ML IV ONE (11:45)
[2017-02-07] MEDS: AMIODARONE 200 MG TAB PO SCH ×2 (12:10→22:33)
[2017-02-07] MEDS: DIGOXIN SOLUTION 0.125 MG/2.5 ML CUP PO SCH (12:10)
[2017-02-07] MEDS: CARVEDILOL 12.5 MG TAB PO SCH ×2 (12:10→22:32)
--- NOTE | 2017-02-07 12:50 | HHI.PR ---
Subjective Remarks More alert and follows commands . Tries to talk. Remains on Vent support ,now on PSV 06/09. FIO2 at 45%. Had dialysis Removed 2 L. tolerates feeds . Objective Vital Signs Date Time Temp Pulse Resp B/P Pulse Ox O2 Delivery O2 Flow Rate FiO2 02/07/17 11:12 96 45 02/07/17 10:00 122 02/07/17 08:00 45 02/07/17 08:00 98.6 77 14 118/57 96 02/07/17 08:00 77 02/07/17 07:32 99 45 02/07/17 06:00 97 02/07/17 04:15 154/102 02/07/17 04:05 99 45 02/07/17 04:00 45 02/07/17 04:00 126 02/07/17 04:00 99.7 126 24 169/111 96 02/07/17 02:00 83 02/07/17 01:25 96 45 02/07/17 00:00 75 02/07/17 00:00 99.2 75 19 138/74 97 02/07/17 00:00 45 02/06/17 22:02 97 45 02/06/17 22:00 79 02/06/17 20:10 97 40 02/06/17 20:00 82 02/06/17 20:00 99.3 82 24 168/84 94 02/06/17 20:00 45 02/06/17 18:00 88 02/06/17 16:00 45 02/06/17 16:00 98.4 129 25 169/102 94 02/06/17 16:00 129 02/06/17 15:04 97 45 02/06/17 14:00 101 I/O 02/06/17 02/06/17 02/06/17 02/07/17 02/07/17 02/07/17 07:00 15:00 23:00 07:00 15:00 23:00 Intake Total 723 ml 902 ml 533 ml 333 ml Output Total 235 ml 100 ml 410 ml 175 ml 3000 ml Balance 488 ml 802 ml 123 ml 158 ml -3000 ml IV Total 322 ml 400 ml 216 ml 182 ml Tube Feeding 341 ml 382 ml 317 ml 91 ml Other 60 ml 120 ml 60 ml Output Urine Total 75 ml 100 ml 150 ml 175 ml Stool Total 160 ml 0 ml 260 ml Tube Feeding Residual Discard 0 ml 0 ml 0 ml 0 ml Hemodialysis 3000 ml # Bowel Movements 1 50 Result Diagram: 02/07/1735502/07/17 0356 Objective Remarks GENERAL: This is an obese, elderly man who is lethargic HEENT: Head is normocephalic. Pupils are reactive. NECK Neck supple. Trachea is midline.Trach tube is in. Neck Hematoma + CHEST: Occ crackles at both lung bases.Decreased breath sounds at bases HEART: The heart sounds are irregular S1-S2. No murmur. ABDOMEN: Soft. Obese without masses. No organomegaly. EXTREMITIES: 1 + edema. Decreased peripheral pulses. SKIN: Dry and cool.Neuro :responds and moves arms and feet a little. Assessment and Plan Assessment and Plan IMPRESSION 1. Hypoxic respiratory failure. 2. Left lower lobe atelectasis and possible pneumonia with aspiration. 3. Left pleural effusion resolved. 4. Cardiomyopathy and congestive heart failure. 5. Obstructive sleep apnea. 6. Diabetes mellitus. 7. Atrial fibrillation. 8. Nasopharyngeal bleed Plan : 1. PSV /CPAP 10 /5 CM FIO2 40 % as tolerated 2. CXR in am 3. Antibiotics per ID. 4. Up in chair as tolerated 5. Nebs qid , duoneb. 6. Trach suction and Lavage 7. Tube feeds at 60 CC 8. Prednisone 15 mg daily 9.PT and OT Julius Burch MD Feb 07, 2017 12:50
[2017-02-07] MEDS ORDERED: MIDAZOLAM HCL 5 MG/5 ML VIAL IV ONE (15:03)
[2017-02-07] MEDS ORDERED: fentaNYL CITRATE 250 MCG/5 ML AMP IV ONE (15:03)
--- NOTE | 2017-02-07 15:25 | PD.RAD ---
Post Procedure Progress Note Pre Procedure Diagnosis: (1) Acute renal failure (2) CKD (chronic kidney disease) stage 4, GFR 15-29 ml/min Post Procedure Diagnosis: (1) Acute renal failure (2) CKD (chronic kidney disease) stage 4, GFR 15-29 ml/min Procedure Date: Feb 07, 2017 Supervising Radiologist: Dayron Floyd Proceduralist/Assist: Jesse Carreon, RT(R), Ilsa Godoy RT(R)() Anesthesia: Conscious Sedation Plan of Activity Patient to Unit: Critical Care Patient Condition: Good See PACS Report for procedural detail/treatment Dayron Floyd MD Feb 07, 2017 15:25
[2017-02-07] MEDS ORDERED: SODIUM CHLORIDE 0.9% FLUSH 10 ML FLUSH IVF PRN (15:30)
[2017-02-07] MEDS ORDERED: HEPARIN SODIUM - IV 2,000 UNITS/2 ML VIAL IV FLUSH PRN (15:30)
[2017-02-07] MEDS ORDERED: HEPARIN SODIUM - SQ 10,000 UNITS/ML VIAL OTHER ONE (15:46)
[2017-02-07] MEDS ORDERED: LIDOCAINE 1%/EPINEPHrine 1:200,000 PF SOLN 10 ML VIAL OTHER ONE (15:46)
--- NOTE | 2017-02-07 16:27 | RADRPT ---
EXAM DATE/TIME: 02/07/2017 00:00 [facility] COMPARISON: No previous studies available for comparison. INDICATIONS : Patient is in need of a Vascath removal to allow for a Pemacath placement for dialysis. MEDICAL HISTORY : History of AFIB, cardiomegaly, CVA, CKD, CHF, thrombocytopenia. SURGICAL HISTORY : History of cardiac cath. ENCOUNTER: Initial ACUITY: 1 month PAIN SCORE: 0/10 LOCATION: Patient is vented. IMAGE SERIES: 0 ACCESS: Right femoral vein PROCEDURE : 1. Temporary central venous catheter removal. The prescribed catheter was removed intact and hemostasis was achieved with direct pressure. The sit e was dressed appropriately. The patient tolerated the procedure well. CONCLUSION: Uncomplicated catheter removal. Dayron Floyd MD on February 07, 2017 at 16:25 Board Certified Radiologist. This report was verified electronically.
--- NOTE | 2017-02-07 17:02 | RADRPT ---
EXAM DATE/TIME: 02/07/2017 15:07 [facility] COMPARISON: No previous studies available for comparison. INDICATIONS : Patient is in need of placement of a permacath for continued dialysis. MEDICAL HISTORY : History of AFIB, cardiomegaly, CVA, CKD, CHF, thrombocytopenia. SURGICAL HISTORY : History of cardiac catheterization. ENCOUNTER: Initial ACUITY: 1 month PAIN SCORE: 0/10 LOCATION: Patient is vented. FLUORO TIME: 0.8 minutes IMAGE SERIES: 0 SEDATION TIME: 30 minutes ACCESS: Left internal jugular vein SEDATION: 1.) 1 mg midazolam (Versed) IV 2.) 50 mcg fentanyl (Sublimaze) IV Prophylactic antibiotics were administered with appropriate pre-procedure timing. Vancomycin within 2 hours of procedure, Ancef (or alternative) within 1 hour of procedure. DEVICE: 1. 15 [place] dual lumen 31 cm Grier II Plus catheter PROCEDURE : 1. Ultrasound-guided venipuncture. 2. PermaCath placement. 3. Conscious sedation with continuous EKG and oximetry monitoring. The risks, benefits and alternatives to the procedure were explained and verbal and written consent w as obtained. The site was prepped in sterile fashion. Full sterile technique was used, including ca p, mask, sterile gloves and gown and a large sterile sheet. Hand hygiene and 2% chlorhexidine and/or betadine/alcohol prep was utilized per protocol for cutaneous antisepsis. The skin and subcutaneous tissues were infiltrated with local anesthetic solution. Left internal jugular approach was utilized secondary to a large residual hematoma in the right neck from prior central venous access attempts. With ultrasound and fluoroscopic guidance a dermatotomy wa s created over the prescribed vein. A micropuncture set was used to access the targeted vein and ser ial dilatation was performed to accept the prescribed length catheter. A subcutaneous tunnel was cre ated in a retrograde fashion the catheter was pulled through the tunnel. The catheter was flushed an d assembled and locked with heparin. The catheter was sutured in place. Conscious sedation was performed with the prescribed dosages and duration as above in the presence of an independent trained radiology nurse to assist in the monitoring of the patient. EKG and oximetry remained stable throughout the procedure. The patient tolerated the procedure well and there were n o complications. The patient was sent to post anesthesia recovery in stable condition. CONCLUSION: Uncomplicated PermaCath placement as above. Dayron Floyd MD on February 07, 2017 at 17:00 Board Certified Radiologist. This report was verified electronically.
[2017-02-07] MEDS ORDERED: AMIODARONE INJ 150 MG in DEXTROSE 5% IN WATER 100ML INJ 97 ML IV ONE ×2 (18:45)
[2017-02-07] MEDS ORDERED: DILTIAZEM HCL 25 MG/5 ML VIAL IV ONE (18:45)
[2017-02-08] VITALS (21 sets, daily range): BP systolic 127–160; BP diastolic 63–85; PULSE 68–138; RESP 18–24; TEMP 98.6–99.7; O2SAT 90–94
[2017-02-08] MEDS: DILTIAZEM HCL 90 MG TAB PO SCH ×4 (03:09→23:02)
[2017-02-08] MEDS: RESP: ALBUTEROL 2.5 MG/IPRATROPIUM 0.5 MG NEB (SCH) NEB ×4 (03:32→21:09)
[2017-02-08] MEDS: CHLORHEXIDINE GLUCONATE 2 % 1 PACK (2 CLOTHS) TOP SCH (04:00)
[2017-02-08 04:59] LABS: BICARBONATE 27.9 MEQ/L (21.0-32.0); POTASSIUM 3.6 MEQ/L (3.5-5.1)
[2017-02-08] MEDS: PIPERACIL-TAZO 2.25 GM PREMIX 50 ML IV SCH ×3 (05:06→23:00)
[2017-02-08] MEDS: METOCLOPRAMIDE HCL 10 MG/2 ML VIAL IV PUSH SCH ×3 (05:06→23:01)
[2017-02-08] MEDS: INSULIN ASPART SUPPLEMENTAL SCALE SQ SCH ×4 (05:07→17:17)
[2017-02-08] MEDS: ARTIFICIAL TEARS OPTH SOLN 15 ML BTL EACH EYE SCH ×3 (05:07→23:08)
--- NOTE | 2017-02-08 07:03 | HHI.CCPN ---
Subjective Remarks/Hospital Course This is a 71-year-old gentleman that presented to [facility] secondary to dyspnea and atrial fibrillation with RVR. The patient has a medical history significant for obesity and hypertension. During his hospitalization at [facility], the patient underwent an echocardiogram which showed severe systolic dysfunction with an ejection fraction of 1015 % the patient then underwent a cardiac catheterization showing significance with left circumflex 90%. The patient underwent multiple attempts of unsuccessful synchronized cardioversion. The patient also underwent medical management with beta blockers, and calcium channel blockers that were also unsuccessful. The patient was transferred to [facility] for cardiac ablation with Dr. Jimenez. The patient was scheduled for cardiac ablation, the procedure was canceled. The patient required emergent intubation and required ventilator management a VLADIMIR was performed showing a clot in the left atrial appendage. The patient was placed on IV Cardizem, and an amiodarone infusion. Critical Care medicine was consulted for management. 01/06: Tmax 97.4. The patient remained on elevated vent settings with FiO2 of 1.0 overnight, PEEP requirements were increased to 8, to maintain a PaO2 of greater than [address] scan of the chest was obtained which noted bilateral effusions small, basilar consolidations right worse than the left, and a loculated area representing a possible pneumonia process, empyema, as well as aspiration or just loculated fluid as well as a small pericardial effusion. The patient continues on Cardizem and amiodarone infusions with a heart rate overnight 80s -115. The patient's vasopressor requirements of phenylephrine diminished to 20 mcgs. 01/07: Tmax 99.2. Yesterday the central line was placed for vasoactive medications and CVP monitoring, small hematoma noted near the right IJ area soft no compression of major vessels, with resolution of bleeding in that area. Phenylephrine was discontinued yesterday. The patient heart rate remains today [id number]. Cardizem infusion has been discontinued in the setting of EF of 10-15%. Esmolol infusion to be initiated this a.m.. Coumadin was initiated last night now placed on hold due to patient bleeding from nasopharynx and oropharynx. INR currently 1.2. Plan for CT thorax tomorrow, with possible IR intervention versus CVT consultation for possible empyema the patient will remain on heparin infusion, and transition onto Coumadin after any potential procedures to be initiated. Chest x-ray slightly improved FiO2 decreasing now 70%. Sedation vacation yesterday revealed GCS 11 T, patient alert responsive following commands. With initiation of antibiotics, leukocytosis resolved. ID consulted Dr. Gage. Blood cultures are pending. 01/08: Patient's heart rate 110-[address] scan of the chest imaging revealed fluid. Plan for thoracentesis and and studies of pleural fluid , this afternoon. The patient remains on amiodarone and heparin infusions, per cardiology. Heparin held, for thoracentesis this afternoon, and then will be resumed. The patient was maintained on CPAP trial for approximately one hour yesterday. During sedation vacation patient was alert following commands recognizing family. Plan to resume CPAP trials this afternoon post thoracentesis. 01/09: The patient underwent CT-guided thoracentesis yesterday , on the right side noted 400 cc of fluid was removed , with specimens ordered to be sent for evaluation .This morning chest x-ray performed showing almost complete opacification of the left lung. FiO2 requirements increase patient on FiO2 of 80%, O2 sat 94%. Left chest ultrasound obtained revealing no fluid. Consent obtained BAL performed, revealing emanating from the nearest previously ( patient was noted to have epistaxis with initiation of heparin on 01/06). Blood clots noted in left lung upon visualization with bronchoscopy, saline lavage applied, minimal blood clots removed. The patient was initiated on Mucomyst 10% , and pulmonology was consulted. Dr. Tasia Lama following. The patient shows no signs or evidence of bleeding actively, plan to consult ENT if signs of active bleeding become evident. Hemoglobin remains stable.The patient converted into sinus rhythm is today afternoon. Cardiology management of medications, IV amiodarone discontinued this afternoon. 01/10: Tmax 99.0. Chest x-ray shows slight improvement of left lung today. Plan for repeat bronchoscopy per Dr. Burch this a.m, and the patient continues on Mucomyst. The patient's cardiac rhythm reverted to A. fib last evening, amiodarone IV infusion reinstituted per Dr. Jimenez. 01/11: TMax 100.0. Much improved chest x-ray this morning. The patient continues in A. fib with a rate of 120, he continues on amiodarone, heparin infusion per cardiology. No evidence of active bleeding. 5/12 Patient Remains sedated with Diprivan, intubated. T:99.9. On Neosyn 15 mics , heparin and Amio drips. In Afib with RRV. Patient s/p repeat bronch with BAL yesterday by Dr. Burch and ETT replacement by Dr. Sanchez. On PC/AC with PEEP:14 , FIO2 100%. 01/13: TMax 100.2. Last night the nurse reported that the patient had a small amount of epistaxis, and blood in the oropharynx noted. The area continued to bleed during the night. ENT has been consulted. Heparin has been placed on hold , ASA has been discontinued in the setting of acute renal failure. The patient continues on amiodarone infusion , heart rate 120's. Neosynephrine has been discontinued, and Levophed instituted. Creatinine noted to be 4.5. As per report , states patient does not want dialysis. The patient continues on elevated PEEP of 14. 5/14: Heparin was discontinued yesterday in the setting of continued bleeding in the nasal/ oropharyngeal region. ENT was consulted and nasal packing was applied. During the night the patient still had small noted amount of bleeding from the oropharyngeal area plan today for oropharyngeal packing. Hgb 9, will transfuse .The patient was placed on norepinephrine for currently at 1-2 mcgs per minute. PEEP has been decreased to 12, with adequate oxygenation a PaO2 of 71. 5/15: Tmax 99.0. The patient continues to be anemic and thrombocytopenic, contributory factors being uremia. The patient's /family decided to pursue hemodialysis at this point. The patient received 1 unit of packed red blood cells yesterday. The patient was initiated on dialysis yesterday afternoon, with approximately 3 L removed. Nasal gauze packing removed and placement of nasal balloons by ENT yesterday. Oral gauze packing to be removed today. The patient received 2 separate doses of digoxin, A. fib heart rate ranging 80- < 120. The patient continues to have high ventilatory requirements, FiO2 was increased throughout the night to currently 80%, to maintain O2 sat greater than 92%. 01/16: FiO2 at 85%. Large clots removed from oropharynx overnight. Transfused 2 units PRBCs yesterday. No bowel movement. Tolerating tube feeds at 40 cc now with Nepro 01/17: Maximum 100.6. CURRENT TEMPERATURE 98.1. Central line pulled out yesterday. Flolan initiated yesterday and FiO2 down to 65%. Tolerating tube feeds. No bowel movement. Arousable weakly follow commands yesterday 01/18: Tmax 99.8. Currently afebrile. Initially, hemoptysis with desaturation requiring bronchoscopy. See bronchoscopy note. Roto-Rest bed ordered. FiO2 from 100-70% currently. On Nimbex drip. No BM. Tolerating tube feeds. 01/19: Afebrile. FiO2 down to 40%. We will attempt a wean Flolan today. On Nimbex drip. Positive BM yesterday. Tolerating tube feeds. 01/20: FiO2 back to 100%. Flolan "fell off "overnight. Ventilator adjusted back to 100%. Flolan reinstituted. Chest x-ray and ABG pending. Tolerating tube feeds. Positive BM. Afebrile. 01/21: Intolerant of tube feeding. KUB pending. Afebrile. Bleeding from bilateral nares and Alanis overnight. Argatroban has been held. Positive BM. 01/22 Patient is sedated with Fentanyl , versed in addition he is on Nimbex. Receiving HD. TF on hold for high residuals. 01/23 Patient is on Roto prone bed sedated and intubated. s/p HD yesterday with removal 3L. On Nimbex, afebrile. 01/24 Patient remains sedated with Versed, Fentanyl and remains on Nimbex. On PC/ AC with PEEP: 10, FIO2 down 40%. For HD today. Afebrile. 01/25 Patient remains sedated and intubated . On PC/AC with PEEP: 10 and FIO2 50% . s/p HD yesterday with removal 4.5L. Afebrile. 01/26 Patient is sedated with Fentanyl off versed and Nimbex. s/p bronch yesterday by Dr. Burch. On PRVC/AC with PEEP: 10 and FIO2 down to 50% s/p HD yesterday with removal 1.5. For another HD session today. 01/27 Patient is sedated with Fentanyl and intubated, s/p HD yesterday with removal 4L. Afebrile. On PRVC/AC mode with PEEP; 10 and FIO2 45% 01/28 Patient remains sedated with Fentanyl and intubated. s/p HD yesterday with removal 3L. Placed on Amio drip yesterday for Afib with RVR, 01/29 No acute events overnight. Sedated with Fentanyl and intubated. Afebrile. On PRVC/AC with PEEP: 10 and FIO2 70% decreased to 60% 01/30 No events overnight. Sedated with Diprivan on Amio drip and Cardizem 5mg/ hr. s/p HD yesterday with removal 2L. Spiked fever yesterday with T 101.7 .On PRVC/AC with PEEP: 10, FIO2 65% 01/31: Afebrile. FiO2 at 65%. PEEP at 10. Heart rate between 70 and 130. Cardizem drip at 15 mg an hour. For CT head today. Copious amounts of oral secretions. Minimal via suctioning 02/01: Currently afebrile. Heart rate consistently in the 120s to 140s. Cardizem drip back up to 15 mg an hour. More awake and withdrawing right upper , bilateral lower extremities. Moving head side to side. 02/02: Remains intubated and sedated with 15 mcg/min of propofol. In Afib with RVR in HR 130/min. Give additional 15 mg IVx1 and increase drip to 20 mg per hour. Moves L UE spontaneously. PEg and OR trach planned for today 02/03: Patient is status post trach and PEG yesterday 02-17. Currently remains on propofol and Cardizem infusions. Off all pressors. Rate control is improved, but still 100-110. Will increase carvedilol and start digoxin for improved rate control. Chest x-ray shows evidence of fluid overload, patient remains oliguric 02/04: Currently off all sedation. Awake weakly follows commands. Chest x-ray shows bilateral effusion and pulmonary edema-we'll request additional hemodialysis today. A. fib rate controlled and remains on 20 mg per hour of Cardizem 02/05 No acute events overnight. Patient remains on ventilator via trach. On Heparin drip and Cardizem drip 15mg/hr, s/p HD yesterday with removal 4L. On no sedation. Afebrile. 02/06 Patient is on ventilator via trach. On Heparin and Cardizem drips 15mg/hr, Tmax 100.4. H/H stable, s/p HD yesterday with removal 4L. 02/07: still on vent via trach. PSV 06/09/45%. heparin on hold. still on cardizem at 15 mg/hr, had to increase for a short time to 20 mg/hr. H/H stable. plan for permacath today. 68: HR much better controlled this morning. dilt drip weaned off. no significant bleeding events overnight. pending insurance authorization for LTAC. Objective Vital Signs Date Time Temp Pulse Resp B/P Pulse Ox O2 Delivery O2 Flow Rate FiO2 02/08/17 06:00 77 02/08/17 04:00 40 02/08/17 04:00 99.4 21 160/85 90 Intake and Output 02/07/17 02/07/17 02/08/17 08:00 16:00 00:00 Intake Total 333 ml 621 ml 232 ml Output Total 175.0 ml 3650.0 ml 125 ml Balance 158.0 ml -3029.0 ml 107 ml Result Diagram: 02/07/17 0356 02/08/17 0317 Imaging Last Impressions Chest X-Ray 02/05/17 0600 Signed Impressions: Service Date/Time: Sunday, February 05, 2017 02:59 - CONCLUSION: Stable pulmonary vascular congestion right worse the left. Tracheostomy tube in good position. Heart remains enlarged Orlin Mascorro MD Head CT 01/31/17 0000 Signed Impressions: Service Date/Time: Tuesday, January 31, 2017 08:42 - CONCLUSION: 1. 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 Right basal ganglia lacunar infarct is age indeterminate. 2. Maurice sinusitis along with opacification of the middle ears and mastoid air cells bilaterally. Geovanny Lynch MD Abdomen X-Ray 01/21/17 0000 Signed Impressions: Service Date/Time: Saturday, January 21, 2017 08:41 - CONCLUSION: Nondiagnostic study. Gurvinder Collier MD Renal Ultrasound 01/09/17 0000 Signed Impressions: Service Date/Time: Monday, January 09, 2017 13:56 - CONCLUSION: 1. Right kidney is sonographically normal. 2. Benign-appearing 2.4 x 1.5 cm cortical cyst in the midpole of the left kidney. 3. Subcentimeter echogenic, non-shadowing foci in the midpole of the left kidney would be unusual for stones and may represent ectopic hilar fat. No hydronephrosis. 4. Urinary bladder is decompressed with a Alanis catheter. Douglas Ward MD Chest Ultrasound 01/09/17 0000 Signed Impressions: Service Date/Time: Monday, January 09, 2017 08:18 - CONCLUSION: No left-sided pleural effusion. The abnormality in the left chest on chest radiograph is likely related to mucous plugging. When patient had a CT scan yesterday the left lung was well aerated. Edgardo Mayorga MD Chest CT 01/08/17 0600 Signed Impressions: Service Date/Time: Sunday, January 08, 2017 08:46 - CONCLUSION: Massive cardiomegaly with panchamber enlargement extensive coronary calcifications. Stable trace pericardial effusion. Increasing bibasilar consolidative changes with minimal bilateral pleural effusions.. Rhys Fritz MD FACR Thoracentesis 01/08/17 0000 Signed Impressions: Service Date/Time: Sunday, January 08, 2017 16:08 - CONCLUSION: Uncomplicated CT-guided thoracentesis on the right. The left sided thoracentesis was not performed as there was no significant left pleural fluid. The abnormality on most recent chest x-ray was secondary to mucous plugging and left sided atelectasis. Edgardo Mayorga MD Objective Remarks GENERAL: 71-year-old male, critically ill obese HEAD: Atraumatic. Normocephalic. EYES: Pupils equal and round, 5mm and reactive to 4 mm. No scleral icterus. No injection or drainage. ENT: No active bleeding. Clear secretions from mouth with suctioning NECK: Trachea midline. Large right-sided evolving hematoma without tracheal shift. Evolving ecchymoses. trach without significant bleeding CARDIOVASCULAR: A. fib rate controlled. RESPIRATORY: Diminished breath sounds throughout especially in the bases bilaterally. Breath sounds equal bilaterally. GASTROINTESTINAL: Abdomen soft, obese non-tender, nondistended. MUSCULOSKELETAL: Extremities with 1+ peripheral edema. No obvious deformities. new permacath site clean dry, minimal bloody drainage. NEUROLOGICAL: Eyes are open tracks attempts to talk. Positive corneal reflex. Very weakly follows commands on all 4 extremities, Nods head Date of Insertion: January 05, 2017 A/P Assessment and Plan Neuro/Psych: Lacunar infarcts bilateral basal ganglia, left thalamus Acute metabolic encephalopathy- resolving. Epistaxis Completed EEG 01/30 revealed no epileptiform activity. Severe encephalopathy. CT brain 01/31 revealed bilateral basal ganglia and left thalamic CVA. Right basal ganglia CVA indeterminate age Dr. Cole/neurology following 01/12 New onset epistaxis, heparin discontinued until 01/31 and restarted Epistaxis-ENT consulted-nasal balloons in situ maintain balloons until 01/20 per ENT recommendation. Removed 01/20 but resumed bleeding so replaced- 01/21, now off ENT has followed- Dr. Byrd. Respiratory: Chronic hypoxic respiratory failure Left lung consolidation 2/2 previous event of epistaxis, clotted blood left lung -resolved Probable aspiration Multilobar [id number] Bilateral pleural effusions SONU Continue with vent support keep sat >90%. s/p OR trach by Dr. Bhakta 02/02 DuoNeb scheduled every 6 hours with albuterol every 2 hours as needed ICU vent bundle. Pulmonology following- Dr. Burch Pulm toilet, trach care, SBT trials as dennis Currently on prednisone 15mg daily 01/08-right CT-guided thoracentesis-400 cc removed s/p bronch 5. by- Dr. Burch for blood clots left lung Status post bronch 01/17 by payroll analyst - bloody mucous plug at saturnino/mainstem section cleared. No obvious source of bleeding. s/p bronch 01/[address] Burch. -minimal secretions. CV: A. fib with RVR- now rate controlled. Left atrial appendage thrombus Acute Systolic CHF Cardiomyopathy Hypertension Dyslipidemia Continue with Amio at 200 mg twice a day, Coreg 25 BID. Monitor HR and BP keep MAP>65mmHg po cardizem 90 q6hr. off dilt drip today. On digoxin 0.125 mg daily Dig level 1.1 02/04 01/13- ASA discontinued due to epistaxis. IV heparin held at midnight for procedures-resume today 01/05 VLADIMIR( Order Worker)-left atrial thrombus EF 15-20%. Systolic function reduced. Diffuse hyperkinesis. 12/26 [facility] severe systolic dysfunction EF 1015%, mitral valve mild to moderate regurg, LAE, tricuspid Valve-mild to moderate regurg, small pericardial effusion, 12/19 cardiac cath left circumflex 90% occlusion VLADIMIR EF 15-20%. Management per Cardiology -Dr. Tony SLATER dig level Renal: Acute on chronic kidney disease stage IV Nephrology following-Dr. Hahn Monitor renal function, I/O's, avoid nephrotoxins. VasCath placement Hemodialysis initiated 01/14. PermeCath placement 02/08 s/p HD 02/05 with removal 4L, FEN/GI: Morbid obesity Hyperphosphatemia s/p PEG 02/03. Tube feeds at goal (Nepro at 45ml/hr) Prevacid for GI prophylaxis Bowel Colace/Senokot twice a day. On Reglan 5 every 8 and erythromycin 200 every 8 for bowel motility/prokinetic PhosLo 667 3 times a day for hyperphosphatemia Heme: Normocytic anemia Thrombocytopenia Transfused 6 units PRBCs since admission Weakly positive HIT panel-CLIFFORD is negative. Repeat 01/30 with HIT negative Agree with stopping Heparin drip per hematology ( recurrent epistaxis and some bleeding from decub ulcers) . Monitor CBC, coags Had discussion with Dr. Jimenez, at this point we have had multiple bleeding complications which have all been life-threatening, even with low-dose anticoagulation. The life-threatening risks of anticoagulation for this patient far outweigh the known and real thrombosis risk given his known thrombus. Certainly, not anticoagulating comes with risks, but we have already proven that any anticoagulation has been life-threatening on more than one occasion. Dr. Jimenez agrees at this point we have failed anticoagulation therapy. If the patient clinically improves over the coming 3-6 months and has no more complications, at that point anticoagulation could be re-addressed. ID: Likely aspiration pneumonia 01/06 urine, sputum, blood cultures-NGTD 01/06-Legionella urine antigen negative 01/09 - bronchoscopy - yeast/ID to follow 01/12 - blood cultures 2 - no growth 01/20 - blood cultures 2 - staph Epi 09/06 bottles- likely contaminant 01/29 - blood cultures 2 -no growth 01/30 - sputum -immature growth 01/30 - urine -no growth Continue with abx (Zosyn) Given Vanco x1 dose 01/29-Dr. Jade Gage following, Check Sputum cx, UA with cx if indicated Endocrine: Close monitoring per ICU protocol-medium dose regimen -- SSI Accu-Cheks every 6 hours for glycemic control Prophylaxis: GI Prophylaxis Prevacid 30 mg at night DVT Prophylaxis -- SCDs Lines: Peripheral IV's. Right femoral HD catheter 01/19, Patient developed hematoma on right side of his neck from previous attempt of central line placement. Dispo: is Olena Muhammad [phone] . Ready for LTAC placement at this time. Daniel Daniels MD Feb 08, 2017 07:03
[2017-02-08] MEDS: CHLORHEXIDINE 0.12% (ORAL KIT) 15 ML CUP MT SCH ×2 (07:50→23:08)
[2017-02-08] MEDS: AMIODARONE 200 MG TAB PO SCH ×2 (08:06→23:02)
[2017-02-08] MEDS: SODIUM CHLORIDE 0.9% FLUSH 10 ML FLUSH IV FLUSH SCH ×2 (08:06→23:07)
[2017-02-08] MEDS: LANSOPRAZOLE SOLUTAB 30 MG TAB NG SCH (08:06)
[2017-02-08] MEDS: CALCIUM ACETATE 667 MG CAP PO SCH ×3 (08:06→17:14)
[2017-02-08] MEDS: SODIUM CHLORIDE 0.9% FLUSH 10 ML FLUSH IVF SCH (08:06)
[2017-02-08] MEDS: predniSONE 10 MG TAB PO SCH (08:06)
[2017-02-08] MEDS: DOCUSATE SODIUM 100 MG/10 ML UDC PO SCH ×2 (08:07→23:00)
[2017-02-08] MEDS: CARVEDILOL 12.5 MG TAB PO SCH ×2 (08:07→23:01)
[2017-02-08] MEDS: LACTULOSE SYRUP 20 GM/30 ML CUP PO SCH (08:08)
[2017-02-08] MEDS: DIGOXIN SOLUTION 0.125 MG/2.5 ML CUP PO SCH (08:09)
[2017-02-08] MEDS: SENNOSIDES SYRUP 8.8 MG/5 ML CUP PO SCH ×2 (08:09→23:02)
[2017-02-08 10:26] LABS: HEMATOCRIT 21.8 % (39.0-51.0); MEAN CELL VOLUME 89.3 FL (80.0-100.0); MEAN CORPUSCULAR HEMOGLOBIN 30.4 PG (27.0-34.0); PLATELET COUNT 131 TH/MM3 (150-450); RED BLOOD COUNT 2.44 MIL/MM3 (4.50-5.90); RED CELL DISTRIBUTION WIDTH 18.2 % (11.6-17.2); REVIEW FLAG FINAL; WHITE BLOOD COUNT 6.3 TH/MM3 (4.0-11.0)
[2017-02-08 10:42] LABS: BICARBONATE 25.6 MEQ/L (21.0-32.0); MAGNESIUM 2.2 MG/DL (1.5-2.5); POTASSIUM 3.7 MEQ/L (3.5-5.1)
--- NOTE | 2017-02-08 10:43 | HHI.NPPN ---
Subjective General Problems: Anemia, Edema, Heart Disease Renal Failure: Acute History of Present Illness 71-year-old the white male the who is transferred from [facility] to [facility] due to atrial fibrillation with fast ventricular response, he was in the heart catheterization lab and became unstable has to intubated the patient has chronic kidney disease, Cardiomyopathy ejection fraction of only 15% and has severe dilated cardiomyopathy with the clot in left atrium he is on heparin drip and currently on ventilator. Additional Remarks He appears to follow some commands. Objective Data Data 02/07/17 02/08/17 19:00 07:00 Intake Total 621 ml 301 ml Output Total 3650.0 ml 250 ml Balance -3029.0 ml 51 ml Intake Oral 0 ml IV Total 621 ml 261 ml Tube Feeding 40 ml Output Urine Total 250 ml 250 ml Stool Total 400 ml 0 ml Tube Feeding Residual Discard 0 ml Hemodialysis 3000 ml Vital Signs Date Time Temp Pulse Resp B/P Pulse Ox O2 Delivery O2 Flow Rate FiO2 02/08/17 10:04 93 40 02/08/17 10:00 71 02/08/17 08:00 40 02/08/17 08:00 90 02/08/17 08:00 98.6 90 21 151/70 94 02/08/17 07:22 94 40 02/08/17 06:00 77 02/08/17 04:00 40 02/08/17 04:00 99.4 110 21 160/85 90 02/08/17 04:00 110 02/08/17 03:32 92 40 02/08/17 02:00 99 02/08/17 01:59 93 40 02/08/17 00:00 74 02/08/17 00:00 99.0 74 24 159/63 92 02/08/17 00:00 40 02/07/17 22:02 92 40 02/07/17 22:00 130 02/07/17 20:35 96 40 02/07/17 20:00 40 02/07/17 20:00 81 02/07/17 20:00 99.2 81 18 149/78 94 02/07/17 18:00 80 02/07/17 16:00 100 02/07/17 16:00 92 40 02/07/17 16:00 121 02/07/17 16:00 40 02/07/17 16:00 98.7 121 28 161/119 84 02/07/17 14:00 93 02/07/17 12:00 45 02/07/17 12:00 109 02/07/17 12:00 98.5 109 25 154/69 89 02/07/17 11:12 96 45 -: 02/08/17 0927 02/08/17 0317 Physical Exam General Appearance: Well Developed Eyes Eye Exam: Pupils Equal Pulmonary Resp Exam: Rhonchi, Decreased Bases, Diminished Breath Sounds Cardiology CV Exam: Arrhythmia Gastrointestinal/Abdomen GI Exam: Soft, Non-Tender, Distended Extremeties Extremities Exam: Moderate Edema, Pitting Edema, Dependent Edema Neurologic Neuro Exam: Sedated Assessment/Plan Problem List: (1) Acute renal failure Plan: he has hemodialysis yesterday 3 L UF on 4 K bath K better PermCath placed Severe cardiomyopathy prognosis is guarded. 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 Improved. Problem Qualifiers (1) CHF (congestive heart failure): Christa Hahn MD Feb 08, 2017 10:43
[2017-02-08 11:50] LABS: APTT (PATIENT) 24.5 SEC (24.3-30.1)
--- NOTE | 2017-02-08 11:56 | HHI.PR ---
Subjective Remarks More alert and follows commands . Tries to talk. Remains on Vent support ,now on PSV 06/07. FIO2 at 40%. Had dialysis Removed 2 L. tolerates feeds . Moves all limbs. Objective Vital Signs Date Time Temp Pulse Resp B/P Pulse Ox O2 Delivery O2 Flow Rate FiO2 02/08/17 10:04 93 40 02/08/17 10:00 71 02/08/17 08:00 40 02/08/17 08:00 90 02/08/17 08:00 98.6 90 21 151/70 94 02/08/17 07:22 94 40 02/08/17 06:00 77 02/08/17 04:00 40 02/08/17 04:00 99.4 110 21 160/85 90 02/08/17 04:00 110 02/08/17 03:32 92 40 02/08/17 02:00 99 02/08/17 01:59 93 40 02/08/17 00:00 74 02/08/17 00:00 99.0 74 24 159/63 92 02/08/17 00:00 40 02/07/17 22:02 92 40 02/07/17 22:00 130 02/07/17 20:35 96 40 02/07/17 20:00 40 02/07/17 20:00 81 02/07/17 20:00 99.2 81 18 149/78 94 02/07/17 18:00 80 02/07/17 16:00 100 02/07/17 16:00 92 40 02/07/17 16:00 121 02/07/17 16:00 40 02/07/17 16:00 98.7 121 28 161/119 84 02/07/17 14:00 93 02/07/17 12:00 45 02/07/17 12:00 109 02/07/17 12:00 98.5 109 25 154/69 89 I/O 02/07/17 02/07/17 02/07/17 02/08/17 02/08/17 02/08/17 07:00 15:00 23:00 07:00 15:00 23:00 Intake Total 333 ml 621 ml 232 ml 69 ml Output Total 175 ml 3650.0 ml 125 ml 125 ml Balance 158 ml -3029.0 ml 107 ml -56 ml Intake Oral 0 ml IV Total 182 ml 621 ml 232 ml 29 ml Tube Feeding 91 ml 40 ml Other 60 ml Output Urine Total 175 ml 250 ml 125 ml 125 ml Stool Total 400 ml 0 ml 0 ml Tube Feeding Residual Discard 0 ml 0 ml 0 ml Hemodialysis 3000 ml # Bowel Movements 50 Result Diagram: 02/08/1792602/08/17926 Objective Remarks GENERAL: This is an obese, elderly man who is awake. HEENT: Head is normocephalic. Pupils are reactive. NECK Neck supple. Trachea is midline.Trach tube is in. Neck Hematoma + CHEST: Occ crackles at lung bases.Decreased breath sounds at bases HEART: The heart sounds are irregular S1-S2. No murmur. ABDOMEN: Soft. Obese without masses. No organomegaly. EXTREMITIES: 1 + edema. Decreased peripheral pulses. SKIN: Dry and cool.Neuro :responds and moves arms and feet . Assessment and Plan Assessment and Plan IMPRESSION 1. Hypoxic respiratory failure. 2. Left lower lobe atelectasis and possible pneumonia with aspiration. 3. Left pleural effusion resolved. 4. Cardiomyopathy and congestive heart failure. 5. Obstructive sleep apnea. 6. Diabetes mellitus. 7. Atrial fibrillation. 8. Nasopharyngeal bleed Plan : 1. PSV /CPAP 10 /5 CM FIO2 40 % as tolerated 2. Labs in am 3. Antibiotics per ID. 4. Up in chair as tolerated 5. Nebs qid , duoneb. 6. Trach suction and Lavage 7. Tube feeds at 60 CC 8. Prednisone 10 mg daily 9.PT and OT 10. To LTAC soon Julius Burch MD Feb 08, 2017 11:56
--- NOTE | 2017-02-08 17:50 | PD.ONC.PN ---
Subjective Subjective Remarks Tmax 99.4 overnight. Per RN pt gilbert be going to [facility] soon No oozing. Objective Data Date Time Temp Pulse Resp B/P Pulse Ox O2 Delivery O2 Flow Rate FiO2 02/08/17 16:00 40 02/08/17 16:00 90 02/08/17 15:35 94 40 02/08/17 14:00 90 02/08/17 12:00 98.9 89 23 134/75 92 02/08/17 12:00 89 02/08/17 12:00 40 02/08/17 11:00 87 18 141/70 92 02/08/17 10:04 93 40 02/08/17 10:00 71 23 143/67 94 02/08/17 10:00 71 02/08/17 09:00 68 20 127/64 94 02/08/17 08:00 40 02/08/17 08:00 90 02/08/17 08:00 98.6 90 21 151/70 94 02/08/17 07:22 94 40 02/08/17 06:00 77 02/08/17 04:00 40 02/08/17 04:00 99.4 110 21 160/85 90 02/08/17 04:00 110 02/08/17 03:32 92 40 02/08/17 02:00 99 02/08/17 01:59 93 40 02/08/17 00:00 74 02/08/17 00:00 99.0 74 24 159/63 92 02/08/17 00:00 40 02/07/17 22:02 92 40 02/07/17 22:00 130 02/07/17 20:35 96 40 02/07/17 20:00 40 02/07/17 20:00 81 02/07/17 20:00 99.2 81 18 149/78 94 02/07/17 18:00 80 02/08/17 02/08/17 02/08/17 07:00 15:00 23:00 Intake Total 69 ml Output Total 125 ml Balance -56 ml Result Diagram: 02/08/1792602/08/17926 Laboratory Results Laboratory Tests Test 02/08/17 02/08/17 02/08/17 03:17 09:27 10:57 Sodium Level 143 MEQ/L 140 MEQ/L Potassium Level 3.6 MEQ/L 3.7 MEQ/L Chloride Level 103 MEQ/L 102 MEQ/L Carbon Dioxide Level 27.9 MEQ/L 25.6 MEQ/L Anion Gap 12 MEQ/L 12 MEQ/L Blood Urea Nitrogen 50 MG/DL 53 MG/DL Creatinine 4.09 MG/DL 4.31 MG/DL Estimat Glomerular Filtration 15 ML/MIN 14 ML/MIN Rate Random Glucose 88 MG/DL 92 MG/DL Calcium Level 8.1 MG/DL 8.2 MG/DL Phosphorus Level 3.2 MG/DL Albumin 2.5 GM/DL White Blood Count 6.3 TH/MM3 Red Blood Count 2.44 MIL/MM3 Hemoglobin 7.4 GM/DL Hematocrit 21.8 % Mean Corpuscular Volume 89.3 FL Mean Corpuscular Hemoglobin 30.4 PG Mean Corpuscular Hemoglobin 34.0 % Concent Red Cell Distribution Width 18.2 % Platelet Count 131 TH/MM3 Mean Platelet Volume 9.2 FL Magnesium Level 2.2 MG/DL Activated Partial 24.5 SEC Thromboplast Time Culture Results Microbiology Date/Time Procedure Status Source Growth 02/06/17 11:10 Urine Culture - Final Complete Urine Catheterized Urine NO GROWTH IN 48 HOURS. 02/06/17 16:00 Gram Stain - Final Complete Sputum Endotracheal 02/06/17 16:00 Sputum Culture - Final Complete Sputum Endotracheal MODERATE GROWTH NORMAL RESPIRATORY NIEVES Administered Medications Medications (Trade) Dose Ordered Sig/Claire Route PRN Reason Start Time Stop Time Status Last Admin Dose Admin Docusate Sodium (Colace Liq) 100 mg Q12HR PO 01/06/17 21:00 02/07/17 20:48 Sodium Chloride (NS Flush) 2 ml UNSCH PRN IV FLUSH FLUSH AFTER USING IV ACCESS 01/06/17 13:15 02/02/17 07:30 Sodium Chloride (NS Flush) 2 ml BID IV FLUSH 01/06/17 21:00 02/08/17 08:06 Chlorhexidine Gluconate (Chlorhexidine 2% Cloth) Taper DAILY@04 TOP 01/07/17 04:00 01/03/18 03:59 02/01/17 04:00 Dextrose (D50w (Vial) Inj) 25 ml UNSCH PRN IV PUSH HYPOGLYCEMIA-SEE COMMENTS 01/09/17 07:15 01/21/17 19:15 Insulin Aspart (NovoLOG SUPPLEMENTAL SCALE) 1 Q6HR SQ 01/10/17 06:00 02/05/17 11:52 Bisacodyl (Dulcolax Supp) 10 mg DAILY PRN RECTAL CONSTIPATION 01/10/17 09:15 Hold 01/10/17 09:56 Sennosides (Senna Liq) 8.8 mg BID PO 01/16/17 09:00 02/07/17 20:48 Glycerin (Glycerin Adult Supp) 2 gm BID PRN RECTAL CONSTIPATION 01/17/17 06:45 01/17/17 14:30 Sodium Chloride (NS Flush) DAILY IVF 01/17/17 12:30 02/04/17 07:39 Artificial Tears (Tears Naturale Opth Soln) 1 drop Q8HR EACH EYE 01/17/17 22:00 02/08/17 13:46 Chlorhexidine Gluconate (Peridex 0.12% Liq) 15 ml BID@08,20 MT 01/17/17 20:00 02/08/17 07:50 Metoclopramide HCl (Reglan Inj) 5 mg Q8HR IV PUSH 01/18/17 06:45 02/08/17 13:46 Calcium Acetate (Phoslo) 667 mg TID PO 01/19/17 09:00 02/08/17 17:14 Lansoprazole 30 mg 30 mg DAILY NG 01/19/17 09:00 02/08/17 08:06 Sodium Chloride 1,000 ml @ 0 mls/hr Q0M PRN IV For Prime & Rinse Back 01/19/17 08:06 02/07/17 08:33 Sodium Chloride (NS 1000 ml Inj) 1,000 ml @ 0 mls/hr Q0M PRN IV WITH DIALYSIS 01/19/17 08:06 01/27/17 09:24 Mannitol (Mannitol Inj) 12.5 gm UNSCH PRN IV WITH DIALYSIS 01/19/17 08:15 01/26/17 15:26 Albumin Human (Albumin 25% Inj) 25 gm UNSCH PRN IV WITH DIALYSIS 01/19/17 08:15 02/07/17 08:33 Sodium Chloride (NS Flush) 5 ml UNSCH PRN IV FLUSH WITH DIALYSIS 01/19/17 08:15 01/27/17 09:22 Gentamicin Sulfate (Gentamicin (Dialysis) Inj) 20 mg UNSCH PRN IV WITH DIALYSIS 01/19/17 08:15 02/07/17 08:33 Acetaminophen (Tylenol) 650 mg UNSCH PRN PO for headach, pain, temp > 101F 01/19/17 08:15 02/05/17 00:02 Epoetin Rizwan (Epogen Inj) 4,000 units UNSCH PRN IV WITH DIALYSIS 01/19/17 08:15 02/07/17 08:34 Labetalol HCl (Trandate Inj) 10 mg Q1HR PRN IV PUSH SBP>160, DBP>90, HR>65 01/24/17 19:15 01/24/17 19:28 Hydralazine HCl (Apresoline Inj) 10 mg Q1HR PRN IV PUSH SBP>160, DBP>90 01/24/17 19:15 02/07/17 04:17 Hyoscyamine Sulfate (Levsin) 0.25 mg Q4H PRN PO secretions 01/29/17 11:00 01/29/17 12:07 Nystatin (Mycostatin Powder) 1 applic Q12HR PRN TOPICAL rash 01/29/17 11:00 02/07/17 09:13 Amiodarone HCl (Cordarone) 200 mg Q12HR PO 01/31/17 09:00 02/08/17 08:06 Lactulose (Lactulose Liq) 30 ml DAILY PO 01/31/17 09:00 02/07/17 09:12 Heparin Sodium (Porcine) UNSCH PRN .XX WITH DIALYSIS 01/31/17 10:45 02/07/17 08:33 Piperacillin Sod/ Tazobactam Sod (Zosyn 2.25 Gm Premix) 50 ml @ 100 mls/hr Q8H IV 02/01/17 21:00 02/08/17 12:11 Carvedilol (Coreg) 25 mg Q12HR PO 02/03/17 21:00 02/08/17 08:07 Digoxin 0.125 mg 0.125 mg DAILY PO 02/03/17 10:00 02/08/17 08:09 Heparin Sodium/ Dextrose (Heparin-D5W Inj) 250 ml @ 0 mls/hr TITRATE IV 02/04/17 13:00 Hold 02/05/17 22:49 Diltiazem HCl (Cardizem) 90 mg Q6H PO 02/07/17 09:00 02/08/17 16:00 Objective Remarks GENERAL: Overweight male lying in bed in no distress. Mechanically ventilated via trach SKIN: Warm and dry. No oozing from lines. HEAD: Normocephalic. Blood in bilateral nares skein yard drier than yesterday. EYES: No injection or drainage. NECK: Supple, tracheostomy midline. +Hematoma R neck CARDIOVASCULAR: +S1/S2. Afib on monitor. RESPIRATORY: Clear anteriorly. on Mechanical ventilation. GASTROINTESTINAL: Abdomen obese. +BS. Tolerating TF per RN EXTREMITIES: No cyanosis NEUROLOGICAL: Awake. No purposeful movements. Assessment/Plan Problem List: (1) Thrombosis of left atrium without antecedent myocardial infarction Status: Acute Plan: -- Previously on a heparin infusion but this was placed on hold d/t epistaxis. -- Will restart him on SQ heparin once no further oozing. Assessment 71y/o male admitted in afib w/RVR. 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 --hematoma from central line placement in the right neck Plan 1. Pt tolerated Permacath placement yesterday. 2. Pt with frequent episodes of bleeding when anticoagulated. 3. He seems to be at a higher risk of bleeding than the thrombus at this time. Discussed with the interventional neuroradiologist. We will plan to hold off on anticoagulation for now. 4. We can address this in a couple of months if the pt is more stable at that time. 5. Continue to monitor CBC periodically from specialty hospital. Attending Statement Agree with above. Anticoagulation to start when bleeding stop. Talia Antunez Feb 08, 2017 17:50 Meghan Torres MD Feb 08, 2017 23:30
[2017-02-09] VITALS (10 sets, daily range): BP systolic 144–157; BP diastolic 68–81; PULSE 74–120; RESP 15–25; TEMP 98.5–99.7; O2SAT 92–100
[2017-02-09] MEDS: DILTIAZEM HCL 90 MG TAB PO SCH ×2 (02:24→12:05)
[2017-02-09] MEDS: LABETALOL HCL 100 MG/20 ML VIAL IV PUSH PRN (02:25)
[2017-02-09] MEDS: RESP: ALBUTEROL 2.5 MG/IPRATROPIUM 0.5 MG NEB (SCH) NEB ×2 (03:19→07:46)
[2017-02-09] MEDS: CHLORHEXIDINE GLUCONATE 2 % 1 PACK (2 CLOTHS) TOP SCH (04:00)
[2017-02-09] MEDS: PIPERACIL-TAZO 2.25 GM PREMIX 50 ML IV SCH (04:37)
[2017-02-09 05:20] LABS: HEMATOCRIT 22.5 % (39.0-51.0); MEAN CELL VOLUME 89.9 FL (80.0-100.0); MEAN CORPUSCULAR HEMOGLOBIN 29.7 PG (27.0-34.0); MEAN CORPUSCULAR HGB CONC 33.1 % (32.0-36.0); PLATELET COUNT 153 TH/MM3 (150-450); RED CELL DISTRIBUTION WIDTH 17.9 % (11.6-17.2); REVIEW FLAG FINAL
[2017-02-09 05:30] LABS: APTT (PATIENT) 24.5 SEC (24.3-30.1)
[2017-02-09 05:40] LABS: BICARBONATE 26.4 MEQ/L (21.0-32.0); POTASSIUM 3.5 MEQ/L (3.5-5.1)
[2017-02-09 05:54] LABS: DIGOXIN 1.7 NG/ML (0.8-2.0)
[2017-02-09] MEDS: INSULIN ASPART SUPPLEMENTAL SCALE SQ SCH ×3 (06:00→12:00)
[2017-02-09] MEDS: METOCLOPRAMIDE HCL 10 MG/2 ML VIAL IV PUSH SCH (06:27)
[2017-02-09] MEDS: ARTIFICIAL TEARS OPTH SOLN 15 ML BTL EACH EYE SCH (06:27)
[2017-02-09] MEDS: SODIUM CHLORIDE 0.9% FLUSH 10 ML FLUSH IV FLUSH SCH (08:38)
[2017-02-09] MEDS: CHLORHEXIDINE 0.12% (ORAL KIT) 15 ML CUP MT SCH (08:38)
[2017-02-09] MEDS: SODIUM CHLORIDE 0.9% FLUSH 10 ML FLUSH IVF SCH (08:38)
[2017-02-09] MEDS ORDERED: predniSONE 10 MG TAB PO SCH (09:00)
[2017-02-09] MEDS: EPOETIN ALFA 4,000 UNITS/ML VIAL IV PRN (09:19)
--- NOTE | 2017-02-09 10:06 | HHI.NPPN ---
Subjective General Problems: Anemia, Edema, Heart Disease Renal Failure: Acute History of Present Illness 71-year-old the white male the who is transferred from [facility] to [facility] due to atrial fibrillation with fast ventricular response, he was in the heart catheterization lab and became unstable has to intubated the patient has chronic kidney disease, Cardiomyopathy ejection fraction of only 15% and has severe dilated cardiomyopathy with the clot in left atrium he is on heparin drip and currently on ventilator. Additional Remarks He appears to follow some commands. Objective Data Data 02/08/17 02/09/17 19:00 07:00 Intake Total 152 ml 624 ml Output Total 290 ml 675 ml Balance -138 ml -51 ml IV Total 52 ml 100 ml Tube Feeding 100 ml 524 ml Output Urine Total 250 ml 275 ml Stool Total 40 ml 400 ml Vital Signs Date Time Temp Pulse Resp B/P Pulse Ox O2 Delivery O2 Flow Rate FiO2 02/09/17 08:00 40 02/09/17 08:00 103 02/09/17 08:00 98.5 103 25 157/81 94 02/09/17 07:47 95 40 02/09/17 06:00 88 02/09/17 04:00 98.5 88 18 144/71 100 02/09/17 04:00 79 02/09/17 04:00 40 02/09/17 03:20 92 40 02/09/17 02:00 120 02/09/17 01:22 93 40 02/09/17 00:00 76 02/09/17 00:00 99.7 74 15 151/68 93 02/09/17 00:00 40 02/08/17 23:51 93 40 02/08/17 22:00 138 02/08/17 21:05 93 40 02/08/17 20:00 99.7 131 22 132/76 92 02/08/17 20:00 40 02/08/17 18:00 90 02/08/17 16:00 40 02/08/17 16:00 90 02/08/17 16:00 98.9 89 23 134/75 92 02/08/17 15:35 94 40 02/08/17 14:00 90 02/08/17 12:00 98.9 89 23 134/75 92 02/08/17 12:00 89 6/8/17 12:00 40 02/08/17 11:00 87 18 141/70 92 -: 02/09/17 0443 02/09/17 0443 Physical Exam General Appearance: Well Developed Eyes Eye Exam: Pupils Equal Pulmonary Resp Exam: Rhonchi, Decreased Bases, Diminished Breath Sounds Cardiology CV Exam: Arrhythmia Gastrointestinal/Abdomen GI Exam: Soft, Non-Tender, Distended Extremeties Extremities Exam: Moderate Edema, Pitting Edema, Dependent Edema Neurologic Neuro Exam: Sedated Assessment/Plan Problem List: (1) Acute renal failure Plan: he is seen during hemodialysis today 3 L UF on 4 K bath K better PermCath placed Severe cardiomyopathy prognosis is guarded. 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 Improved. Problem Qualifiers (1) CHF (congestive heart failure): Christa Hahn MD Feb 09, 2017 10:06
[2017-02-09] MEDS ORDERED: EPOETIN ALFA 10,000 UNITS/ML VIAL IV PRN (10:15)
[2017-02-09] MEDS: SENNOSIDES SYRUP 8.8 MG/5 ML CUP PO SCH (12:05)
[2017-02-09] MEDS: DIGOXIN SOLUTION 0.125 MG/2.5 ML CUP PO SCH (12:05)
[2017-02-09] MEDS: LANSOPRAZOLE SOLUTAB 30 MG TAB NG SCH (12:05)
[2017-02-09] MEDS: CARVEDILOL 12.5 MG TAB PO SCH (12:05)
[2017-02-09] MEDS: CALCIUM ACETATE 667 MG CAP PO SCH (12:05)
[2017-02-09] MEDS: LACTULOSE SYRUP 20 GM/30 ML CUP PO SCH (12:05)
[2017-02-09] MEDS: DOCUSATE SODIUM 100 MG/10 ML UDC PO SCH (12:05)
[2017-02-09] MEDS: AMIODARONE 200 MG TAB PO SCH (12:07)
--- NOTE | 2017-02-09 14:07 | HHI.DS ---
Discharge Summary Admission Date January 05, 2017 at 14:20 Discharge Date: Feb 09, 2017 Admitting Diagnosis atrial fibrillation, atrial thrombus Brief History This is a 71-year-old gentleman that presented to [facility] secondary to dyspnea and atrial fibrillation with RVR. The patient has a medical history significant for obesity and hypertension. During his hospitalization at [facility], the patient underwent an echocardiogram which showed severe systolic dysfunction with an ejection fraction of 1015 % the patient then underwent a cardiac catheterization showing significance with left circumflex 90%. The patient underwent multiple attempts of unsuccessful synchronized cardioversion. The patient also underwent medical management with beta blockers, and calcium channel blockers that were also unsuccessful. The patient was transferred to [facility] for cardiac ablation with Dr. Jimenez. The patient was scheduled for cardiac ablation, the procedure was canceled. The patient required emergent intubation and required ventilator management a VLADIMIR was performed showing a clot in the left atrial appendage. The patient was placed on IV Cardizem, and an amiodarone infusion. Critical Care medicine was consulted for management. CBC/BMP: 02/09/17 0443 02/09/17 0443 Significant Findings Laboratory Tests Test 02/06/17 02/07/17 02/08/17 02/08/17 19:09 03:56 03:17 09:27 Hemoglobin 8.1 GM/DL 8.2 GM/DL 7.4 GM/DL (13.0-17.0) (13.0-17.0) (13.0-17.0) Hematocrit 24.1 % 24.8 % 21.8 % (39.0-51.0) (39.0-51.0) (39.0-51.0) Red Blood Count 2.80 MIL/MM3 2.44 MIL/MM3 (4.50-5.90) (4.50-5.90) Red Cell Distribution Width 17.8 % 18.2 % (11.6-17.2) (11.6-17.2) Platelet Count 139 TH/MM3 131 TH/MM3 (150-450) (150-450) Neutrophils (%) (Auto) 83.1 % (16.0-70.0) Lymphocytes (%) (Auto) 6.0 % (9.0-44.0) Eosinophils (%) (Auto) 4.6 % (0.0-4.0) Lymphocytes # (Auto) 0.4 TH/MM3 (1.0-4.8) Potassium Level 3.4 MEQ/L (3.5-5.1) Blood Urea Nitrogen 72 MG/DL (7-18) 50 MG/DL (7-18) 53 MG/DL (7-18) Creatinine 4.84 MG/DL 4.09 MG/DL 4.31 MG/DL (0.60-1.30) (0.60-1.30) (0.60-1.30) Estimat Glomerular Filtration 12 ML/MIN (>89) 15 ML/MIN (>89) 14 ML/MIN (>89) Rate Calcium Level 7.9 MG/DL 8.1 MG/DL 8.2 MG/DL (8.5-10.1) (8.5-10.1) (8.5-10.1) Albumin 2.5 GM/DL (3.4-5.0) Test 02/09/17 04:43 Red Blood Count 2.50 MIL/MM3 (4.50-5.90) Hemoglobin 7.4 GM/DL (13.0-17.0) Hematocrit 22.5 % (39.0-51.0) Red Cell Distribution Width 17.9 % (11.6-17.2) Blood Urea Nitrogen 61 MG/DL (7-18) Creatinine 4.66 MG/DL (0.60-1.30) Estimat Glomerular Filtration 13 ML/MIN (>89) Rate Random Glucose 109 MG/DL (74-106) Calcium Level 8.2 MG/DL (8.5-10.1) PE at Discharge GENERAL: 71-year-old male, critically ill obese HEAD: Atraumatic. Normocephalic. EYES: Pupils equal and round, 5mm and reactive to 4 mm. No scleral icterus. No injection or drainage. ENT: No active bleeding. Clear secretions from mouth with suctioning NECK: Trachea midline. Large right-sided evolving hematoma without tracheal shift. Evolving ecchymoses. trach without significant bleeding CARDIOVASCULAR: A. fib rate controlled. RESPIRATORY: Diminished breath sounds throughout especially in the bases bilaterally. Breath sounds equal bilaterally. GASTROINTESTINAL: Abdomen soft, obese non-tender, nondistended. MUSCULOSKELETAL: Extremities with 1+ peripheral edema. No obvious deformities. new permacath site clean dry, minimal bloody drainage. NEUROLOGICAL: Eyes are open tracks attempts to talk. Positive corneal reflex. Very weakly follows commands on all 4 extremities, Nods head Hospital Course This is a 71-year-old gentleman that presented to [facility] secondary to dyspnea and atrial fibrillation with RVR. The patient has a medical history significant for obesity and hypertension. During his hospitalization at [facility], the patient underwent an echocardiogram which showed severe systolic dysfunction with an ejection fraction of 1015 % the patient then underwent a cardiac catheterization showing significance with left circumflex 90%. The patient underwent multiple attempts of unsuccessful synchronized cardioversion. The patient also underwent medical management with beta blockers, and calcium channel blockers that were also unsuccessful. The patient was transferred to [facility] for cardiac ablation with Dr. Jimenez. The patient was scheduled for cardiac ablation, the procedure was canceled. The patient required emergent intubation and required ventilator management a VLADIMIR was performed showing a clot in the left atrial appendage. The patient was placed on IV Cardizem, and an amiodarone infusion. Critical Care medicine was consulted for management. 01/06: Tmax 97.4. The patient remained on elevated vent settings with FiO2 of 1.0 overnight, PEEP requirements were increased to 8, to maintain a PaO2 of greater than [address] scan of the chest was obtained which noted bilateral effusions small, basilar consolidations right worse than the left, and a loculated area representing a possible pneumonia process, empyema, as well as aspiration or just loculated fluid as well as a small pericardial effusion. The patient continues on Cardizem and amiodarone infusions with a heart rate overnight 80s -115. The patient's vasopressor requirements of phenylephrine diminished to 20 mcgs. 01/07: Tmax 99.2. Yesterday the central line was placed for vasoactive medications and CVP monitoring, small hematoma noted near the right IJ area soft no compression of major vessels, with resolution of bleeding in that area. Phenylephrine was discontinued yesterday. The patient heart rate remains today [id number]. Cardizem infusion has been discontinued in the setting of EF of 10-15%. Esmolol infusion to be initiated this a.m.. Coumadin was initiated last night now placed on hold due to patient bleeding from nasopharynx and oropharynx. INR currently 1.2. Plan for CT thorax tomorrow, with possible IR intervention versus CVT consultation for possible empyema the patient will remain on heparin infusion, and transition onto Coumadin after any potential procedures to be initiated. Chest x-ray slightly improved FiO2 decreasing now 70%. Sedation vacation yesterday revealed GCS 11 T, patient alert responsive following commands. With initiation of antibiotics, leukocytosis resolved. ID consulted Dr. Gage. Blood cultures are pending. 01/08: Patient's heart rate 110-[address] scan of the chest imaging revealed fluid. Plan for thoracentesis and and studies of pleural fluid , this afternoon. The patient remains on amiodarone and heparin infusions, per cardiology. Heparin held, for thoracentesis this afternoon, and then will be resumed. The patient was maintained on CPAP trial for approximately one hour yesterday. During sedation vacation patient was alert following commands recognizing family. Plan to resume CPAP trials this afternoon post thoracentesis. 01/09: The patient underwent CT-guided thoracentesis yesterday , on the right side noted 400 cc of fluid was removed , with specimens ordered to be sent for evaluation .This morning chest x-ray performed showing almost complete opacification of the left lung. FiO2 requirements increase patient on FiO2 of 80%, O2 sat 94%. Left chest ultrasound obtained revealing no fluid. Consent obtained BAL performed, revealing emanating from the nearest previously ( patient was noted to have epistaxis with initiation of heparin on 01/06). Blood clots noted in left lung upon visualization with bronchoscopy, saline lavage applied, minimal blood clots removed. The patient was initiated on Mucomyst 10% , and pulmonology was consulted. Dr. Tasia Lama following. The patient shows no signs or evidence of bleeding actively, plan to consult ENT if signs of active bleeding become evident. Hemoglobin remains stable.The patient converted into sinus rhythm is today afternoon. Cardiology management of medications, IV amiodarone discontinued this afternoon. 01/10: Tmax 99.0. Chest x-ray shows slight improvement of left lung today. Plan for repeat bronchoscopy per Dr. Burch this a.m, and the patient continues on Mucomyst. The patient's cardiac rhythm reverted to A. fib last evening, amiodarone IV infusion reinstituted per Dr. Jimenez. 01/11: TMax 100.0. Much improved chest x-ray this morning. The patient continues in A. fib with a rate of 120, he continues on amiodarone, heparin infusion per cardiology. No evidence of active bleeding. 01/12 Patient Remains sedated with Diprivan, intubated. T:99.9. On Neosyn 15 mics , heparin and Amio drips. In Afib with RRV. Patient s/p repeat bronch with BAL yesterday by Dr. Burch and ETT replacement by Dr. Sanchez. On PC/AC with PEEP:14 , FIO2 100%. 01/13: TMax 100.2. Last night the nurse reported that the patient had a small amount of epistaxis, and blood in the oropharynx noted. The area continued to bleed during the night. ENT has been consulted. Heparin has been placed on hold , ASA has been discontinued in the setting of acute renal failure. The patient continues on amiodarone infusion , heart rate 120's. Neosynephrine has been discontinued, and Levophed instituted. Creatinine noted to be 4.5. As per report , states patient does not want dialysis. The patient continues on elevated PEEP of 14. 5: Heparin was discontinued yesterday in the setting of continued bleeding in the nasal/ oropharyngeal region. ENT was consulted and nasal packing was applied. During the night the patient still had small noted amount of bleeding from the oropharyngeal area plan today for oropharyngeal packing. Hgb 9, will transfuse .The patient was placed on norepinephrine for currently at 1-2 mcgs per minute. PEEP has been decreased to 12, with adequate oxygenation a PaO2 of 71. 01/15: Tmax 99.0. The patient continues to be anemic and thrombocytopenic, contributory factors being uremia. The patient's /family decided to pursue hemodialysis at this point. The patient received 1 unit of packed red blood cells yesterday. The patient was initiated on dialysis yesterday afternoon, with approximately 3 L removed. Nasal gauze packing removed and placement of nasal balloons by ENT yesterday. Oral gauze packing to be removed today. The patient received 2 separate doses of digoxin, A. fib heart rate ranging 80- < 120. The patient continues to have high ventilatory requirements, FiO2 was increased throughout the night to currently 80%, to maintain O2 sat greater than 92%. 01/16: FiO2 at 85%. Large clots removed from oropharynx overnight. Transfused 2 units PRBCs yesterday. No bowel movement. Tolerating tube feeds at 40 cc now with Nepro 01/17: Maximum 100.6. CURRENT TEMPERATURE 98.1. Central line pulled out yesterday. Flolan initiated yesterday and FiO2 down to 65%. Tolerating tube feeds. No bowel movement. Arousable weakly follow commands yesterday 01/18: Tmax 99.8. Currently afebrile. Initially, hemoptysis with desaturation requiring bronchoscopy. See bronchoscopy note. Roto-Rest bed ordered. FiO2 from 100-70% currently. On Nimbex drip. No BM. Tolerating tube feeds. 01/19: Afebrile. FiO2 down to 40%. We will attempt a wean Flolan today. On Nimbex drip. Positive BM yesterday. Tolerating tube feeds. 01/20: FiO2 back to 100%. Flolan "fell off "overnight. Ventilator adjusted back to 100%. Flolan reinstituted. Chest x-ray and ABG pending. Tolerating tube feeds. Positive BM. Afebrile. 01/21: Intolerant of tube feeding. KUB pending. Afebrile. Bleeding from bilateral nares and Alanis overnight. Argatroban has been held. Positive BM. 01/22 Patient is sedated with Fentanyl , versed in addition he is on Nimbex. Receiving HD. TF on hold for high residuals. 01/23 Patient is on Roto prone bed sedated and intubated. s/p HD yesterday with removal 3L. On Nimbex, afebrile. 01/24 Patient remains sedated with Versed, Fentanyl and remains on Nimbex. On PC/ AC with PEEP: 10, FIO2 down 40%. For HD today. Afebrile. 01/25 Patient remains sedated and intubated . On PC/AC with PEEP: 10 and FIO2 50% . s/p HD yesterday with removal 4.5L. Afebrile. 01/26 Patient is sedated with Fentanyl off versed and Nimbex. s/p bronch yesterday by Dr. Burch. On PRVC/AC with PEEP: 10 and FIO2 down to 50% s/p HD yesterday with removal 1.5. For another HD session today. 01/27 Patient is sedated with Fentanyl and intubated, s/p HD yesterday with removal 4L. Afebrile. On PRVC/AC mode with PEEP; 10 and FIO2 45% 01/28 Patient remains sedated with Fentanyl and intubated. s/p HD yesterday with removal 3L. Placed on Amio drip yesterday for Afib with RVR, 01/29 No acute events overnight. Sedated with Fentanyl and intubated. Afebrile. On PRVC/AC with PEEP: 10 and FIO2 70% decreased to 60% 01/30 No events overnight. Sedated with Diprivan on Amio drip and Cardizem 5mg/ hr. s/p HD yesterday with removal 2L. Spiked fever yesterday with T 101.7 .On PRVC/AC with PEEP: 10, FIO2 65% 01/31: Afebrile. FiO2 at 65%. PEEP at 10. Heart rate between 70 and 130. Cardizem drip at 15 mg an hour. For CT head today. Copious amounts of oral secretions. Minimal via suctioning 02/01: Currently afebrile. Heart rate consistently in the 120s to 140s. Cardizem drip back up to 15 mg an hour. More awake and withdrawing right upper , bilateral lower extremities. Moving head side to side. 02/02: Remains intubated and sedated with 15 mcg/min of propofol. In Afib with RVR in HR 130/min. Give additional 15 mg IVx1 and increase drip to 20 mg per hour. Moves L UE spontaneously. PEg and OR trach planned for today 02/03: Patient is status post trach and PEG yesterday -. Currently remains on propofol and Cardizem infusions. Off all pressors. Rate control is improved, but still 100-110. Will increase carvedilol and start digoxin for improved rate control. Chest x-ray shows evidence of fluid overload, patient remains oliguric 02/04: Currently off all sedation. Awake weakly follows commands. Chest x-ray shows bilateral effusion and pulmonary edema-we'll request additional hemodialysis today. A. fib rate controlled and remains on 20 mg per hour of Cardizem 02/05 No acute events overnight. Patient remains on ventilator via trach. On Heparin drip and Cardizem drip 15mg/hr, s/p HD yesterday with removal 4L. On no sedation. Afebrile. 02/06 Patient is on ventilator via trach. On Heparin and Cardizem drips 15mg/hr, Tmax 100.4. H/H stable, s/p HD yesterday with removal 4L. 02/07: still on vent via trach. PSV //45%. heparin on hold. still on cardizem at 15 mg/hr, had to increase for a short time to 20 mg/hr. H/H stable. plan for permacath today. 02/08: HR much better controlled this morning. dilt drip weaned off. no significant bleeding events overnight. pending insurance authorization for LTAC. 02/09: doing well. no changes. no bleeding. hgb stable. off dilt drip. hr controlled. Pt Condition on Discharge: Stable Discharge Disposition: Trnsfr to Other Facility Discharge Instructions DIET: Follow Instructions for: On Tube Feeding Activities you can perform: Regular-No Restrictions Daniel Daniels MD Feb 09, 2017 14:07
== END 2017-02-09 13:00 | DRG 4 ==
LOC: HCIN 15:45 → OBSVTOIN 01-05 14:20 → HCPC 01-05 14:20 → HCVR 01-05 17:47 → HIMW 01-24 21:30
PROVIDERS: ADMIT Internal Medicine Critical Care Medicine; ATTEND Internal Medicine Critical Care Medicine
PROC: 5A1955Z Respiratory Ventilation, Greater than 96 Consecutive Hours (ICD-10-PCS; 2017-01-05)
PROC: B246ZZ4 Ultrasonography of Right and Left Heart, Transesophageal (ICD-10-PCS; 2017-01-05)
PROC: 0BH17EZ Insertion of Endotracheal Airway into Trachea, Via Natural or Artificial Opening (ICD-10-PCS; 2017-01-05)
PROC: 02HV33Z Insertion of Infusion Device into Superior Vena Cava, Percutaneous Approach (ICD-10-PCS; 2017-01-06)
PROC: B543ZZA Ultrasonography of Right Jugular Veins, Guidance (ICD-10-PCS; 2017-01-06)
PROC: 0W993ZZ Drainage of Right Pleural Cavity, Percutaneous Approach (ICD-10-PCS; 2017-01-08)
PROC: 0B9J8ZX Drainage of Left Lower Lung Lobe, Via Natural or Artificial Opening Endoscopic, Diagnostic (ICD-10-PCS; 2017-01-09)
PROC: 0BBL8ZX Excision of Left Lung, Via Natural or Artificial Opening Endoscopic, Diagnostic (ICD-10-PCS; 2017-01-10)
PROC: 0B9G8ZX Drainage of Left Upper Lung Lobe, Via Natural or Artificial Opening Endoscopic, Diagnostic (ICD-10-PCS; 2017-01-10)
PROC: 0BH17EZ Insertion of Endotracheal Airway into Trachea, Via Natural or Artificial Opening (ICD-10-PCS; 2017-01-11)
PROC: 5A1D60Z (ICD-10-PCS; 2017-01-14)
PROC: 02HV33Z Insertion of Infusion Device into Superior Vena Cava, Percutaneous Approach (ICD-10-PCS; 2017-01-14)
PROC: B544ZZA Ultrasonography of Left Jugular Veins, Guidance (ICD-10-PCS; 2017-01-14)
PROC: 30233N1 Transfusion of Nonautologous Red Blood Cells into Peripheral Vein, Percutaneous Approach (ICD-10-PCS; 2017-01-14)
PROC: 0B9F8ZX Drainage of Right Lower Lung Lobe, Via Natural or Artificial Opening Endoscopic, Diagnostic (ICD-10-PCS; 2017-01-17)
PROC: 0B9J8ZX Drainage of Left Lower Lung Lobe, Via Natural or Artificial Opening Endoscopic, Diagnostic (ICD-10-PCS; 2017-01-17)
PROC: 0B998ZX Drainage of Lingula Bronchus, Via Natural or Artificial Opening Endoscopic, Diagnostic (ICD-10-PCS; 2017-01-17)
PROC: 0BH17EZ Insertion of Endotracheal Airway into Trachea, Via Natural or Artificial Opening (ICD-10-PCS; 2017-01-17)
PROC: 05H633Z Insertion of Infusion Device into Left Subclavian Vein, Percutaneous Approach (ICD-10-PCS; 2017-01-17)
PROC: B547ZZA Ultrasonography of Left Subclavian Vein, Guidance (ICD-10-PCS; 2017-01-17)
PROC: 06HM33Z Insertion of Infusion Device into Right Femoral Vein, Percutaneous Approach (ICD-10-PCS; 2017-01-19)
PROC: B54BZZA Ultrasonography of Right Lower Extremity Veins, Guidance (ICD-10-PCS; 2017-01-19)
PROC: 0B9J8ZX Drainage of Left Lower Lung Lobe, Via Natural or Artificial Opening Endoscopic, Diagnostic (ICD-10-PCS; 2017-01-25)
PROC: 0B9C8ZX Drainage of Right Upper Lung Lobe, Via Natural or Artificial Opening Endoscopic, Diagnostic (ICD-10-PCS; 2017-01-25)
PROC: 0B9G8ZX Drainage of Left Upper Lung Lobe, Via Natural or Artificial Opening Endoscopic, Diagnostic (ICD-10-PCS; 2017-01-25)
PROC: 0B9D8ZX Drainage of Right Middle Lung Lobe, Via Natural or Artificial Opening Endoscopic, Diagnostic (ICD-10-PCS; 2017-01-25)
PROC: 0B9F8ZX Drainage of Right Lower Lung Lobe, Via Natural or Artificial Opening Endoscopic, Diagnostic (ICD-10-PCS; 2017-01-25)
PROC: 0BC88ZZ Extirpation of Matter from Left Upper Lobe Bronchus, Via Natural or Artificial Opening Endoscopic (ICD-10-PCS; 2017-01-25)
PROC: 0BCB8ZZ Extirpation of Matter from Left Lower Lobe Bronchus, Via Natural or Artificial Opening Endoscopic (ICD-10-PCS; 2017-01-25)
PROC: 0DJ08ZZ Inspection of Upper Intestinal Tract, Via Natural or Artificial Opening Endoscopic (ICD-10-PCS; 2017-02-02)
PROC: 0DH63UZ Insertion of Feeding Device into Stomach, Percutaneous Approach (ICD-10-PCS; 2017-02-02)
PROC: 0B113F4 Bypass Trachea to Cutaneous with Tracheostomy Device, Percutaneous Approach (ICD-10-PCS; principal; 2017-02-02 14:08)
PROC: 05HN33Z Insertion of Infusion Device into Left Internal Jugular Vein, Percutaneous Approach (ICD-10-PCS; 2017-02-07)
PROC: B514YZA Fluoroscopy of Left Jugular Veins using Other Contrast, Guidance (ICD-10-PCS; 2017-02-07)
PROC: B544ZZA Ultrasonography of Left Jugular Veins, Guidance (ICD-10-PCS; 2017-02-07)
DX: I51.3 Intracardiac thrombosis, not elsewhere classified (principal); J69.0 Pneumonitis due to inhalation of food and vomit; R57.9 Shock, unspecified; J86.9 Pyothorax without fistula; G93.41 Metabolic encephalopathy; A41.9 Sepsis, unspecified organism; I50.21 Acute systolic (congestive) heart failure; N18.4 Chronic kidney disease, stage 4 (severe); J96.01 Acute respiratory failure with hypoxia; N17.9 Acute kidney failure, unspecified; I31.3 Pericardial effusion (noninflammatory); L76.32 Postprocedural hematoma of skin and subcutaneous tissue following other procedure; J98.11 Atelectasis; R04.89 Hemorrhage from other sites in respiratory passages; R04.2 Hemoptysis; I13.2 Hypertensive heart and chronic kidney disease with heart failure and with stage 5 chronic kidney disease, or end stage renal disease; I42.0 Dilated cardiomyopathy; I48.91 Unspecified atrial fibrillation; E87.6 Hypokalemia; R04.0 Epistaxis; D64.9 Anemia, unspecified; D69.6 Thrombocytopenia, unspecified; I25.10 Atherosclerotic heart disease of native coronary artery without angina pectoris; I08.1 Rheumatic disorders of both mitral and tricuspid valves; I25.5 Ischemic cardiomyopathy; E11.22 Type 2 diabetes mellitus with diabetic chronic kidney disease; E07.9 Disorder of thyroid, unspecified; H91.90 Unspecified hearing loss, unspecified ear; J98.09 Other diseases of bronchus, not elsewhere classified; D75.82 Heparin induced thrombocytopenia (HIT); R13.10 Dysphagia, unspecified; G47.33 Obstructive sleep apnea (adult) (pediatric); E66.01 Morbid (severe) obesity due to excess calories; E78.5 Hyperlipidemia, unspecified; E11.65 Type 2 diabetes mellitus with hyperglycemia; E87.5 Hyperkalemia; E83.39 Other disorders of phosphorus metabolism; R31.0 Gross hematuria; T45.515A Adverse effect of anticoagulants, initial encounter; L89.309 Pressure ulcer of unspecified buttock, unspecified stage; Z68.37 Body mass index [BMI] 37.0-37.9, adult; Z86.73 Personal history of transient ischemic attack (TIA), and cerebral infarction without residual deficits; Z87.891 Personal history of nicotine dependence
CPT/HCPCS: 31500; 31624; 32555; 36430; 36556; 36558; 36589; 70450; 71010; 71250; 74000; 76604; 76775; 76937; 77001; 80048; 80053; 80069; 80074; 80076; 80162; 81001; 82140; 82272; 82607; 82805; 82948; 83605; 83690; 83735; 83880; 84100; 84132; 84145; 84155; 84425; 84443; 85007; 85014; 85018; 85025; 85027; 85044; 85384; 85610; 85730; 86022; 86140; 86403; 86850; 86900; 86901; 86920; 87015; 87040; 87070; 87077; 87086; 87102; 87116; 87186; 87205; 87206; 87449; 87641; 90935; 93005; 93312; 93320; 93325; 93662; 94002; 94003; 94640; 94664; 94799; 95819; 96374; 96375; 99152; 99153; A7521; C1750; C1759; C1769; J0171; J0282; J0360; J0456; J0461; J0690; J0692; J0883; J1160; J1325; J1580; J1644; J1815; J1956; J2060; J2150; J2212; J2250; J2370; J2543; J2597; J2765; J2920; J3010; J3370; J3480; J7030; J7040; J7050; J7060; J7512; J7608; J7613; J7614; J7644; P9016; P9047; Q4081